=== PATIENT | male | born 1940 | race Caucasian/White ===

== ENCOUNTER → 2017-08-06 08:41 | Outpatient (CLI) | payer MEDICARE, OTHER, SELFPAY ==
[2017-08-06 10:22] LABS: AST(SGOT) 18 U/L (15-37); Alanine Aminotransfer ALT/SGPT 22 U/L (16-61); Albumin, Serum 3.5 g/dL (3.2-5.0); Alkaline Phosphatase 62 U/L (45-117); Bilirubin, Direct 0.12 mg/dL (0.00-0.30); Cholesterol 147 mg/dL (200); Globulin 3.7 g/dL (2.2-4.2); High Density Lipoprotein 45 mg/dL; Protein, Total 7.2 g/dL (6.4-8.2); Triglycerides 83 mg/dL; Very Low Density Lipoprotein 17 mg/dL (5-40)
== END ==
PROVIDERS: Family Provider Family Medicine; PCP Family Medicine; Visit Provider Internal Medicine Cardiovascular Disease
DX: E78.5 Hyperlipidemia, unspecified (principal); Z95.5 Presence of coronary angioplasty implant and graft
CPT/HCPCS: 36415; 80061; 80076

== ENCOUNTER 2019-01-02 11:03 | Inpatient (IN) | payer MEDICARE, OTHER, SELFPAY ==
[2018-07-18 13:30] VITALS: BMI 33.4
[2019-01-02] VITALS (8 sets, daily range): BP systolic 156–179; BP diastolic 75–77; PULSE 51–69; RESP 16–18; TEMP 36.2–36.8; O2SAT 95–98; BMI 31.8; BMI 31.6
--- NOTE | 2019-01-02 11:35 | EKG12_ITS ---
Test Reason : SOB Blood Pressure : / mmHG Vent. Rate : 061 BPM Atrial Rate : 061 BPM P-R Int : 184 ms QRS Dur : 100 ms QT Int : 436 ms P-R-T Axes : -26 -43 -28 degrees QTc Int : 438 ms Normal sinus rhythm Left axis deviation Nonspecific ST abnormality T-wave Abnormality: consider myocardial ischemia: inferior Abnormal ECG Confirmed by WILDER AN, BALDEMAR ([id number]), deputy editor in chief NITO VASQUEZ ([id number]) on 01/04/2019 1:48:19 PM Referred By: Syeda Huggins Confirmed By:BALDEMAR HDZ MD
--- NOTE | 2019-01-02 11:50 | RAD_ITS ---
EXAM DESCRIPTION: PORTABLE AP CHEST CLINICAL HISTORY: 78 years Male, dyspnea COMPARISON: Previous chest obtained on 09/14/2016 FINDINGS: Sternotomy sutures are noted in place. The rest of the thorax is intact.The heart and mediastinum appear to be within normal limits. The lungs appear to be well areated without evidence of pneumonic consolidation or pleural effusion. RAD/Chest PA and Lateral IMPRESSION: No acute pathology Electronically Signed: Roberto Bustamante, at 14:33 EDT Tel , Service support ,
[2019-01-02 11:57] LABS: Absolute Lymphocyte Count 0.93 X10^3/uL (0.83-4.51); Absolute Neutrophil Count 5.4 X10^3/uL (2.0-7.7); Basophil# 0.04 X10^3/uL; Basophil% 0.6 % (0-1); Eosinophil# 0.09 X10^3/uL; Eosinophils% 1.3 % (0-5); Hematocrit 39.8 % (40-54); Hemoglobin 13.1 g/dL (13.0-16.5); Lymphocyte # 0.93 X10^3/ul (4.0); Lymphocyte % 13.1 % (19-41); Mean Corp Hgb Conc 32.9 g/dL (32-36); Mean Corpuscular Hgb 28.8 pg (27.0-32.0); Mean Corpuscular Volume 87.5 fL (80-94); Mean Platelet Vol. 10.5 fl (6.2-12.0); Monocyte# 0.67 X10^3/uL; Monocyte% 9.4 % (0-10); NRBC Flagged by Analyzer 0 % (0-5); Neutrophil # 5.35 X10^3/uL (2.7-7.7); Neutrophil % 75.2 % (47-70); Platelet Count 202 K/mm3 (150-450); RBC Distribution Width CV 12.2 % (11.6-14.6); RBC Distribution Width SD 39.1 fl (35.1-43.9); Red Blood Count 4.55 M/mm3 (4.6-6.2); White Blood Count 7.1 K/mm3 (4.4-11.0)
[2019-01-02 12:11] LABS: Anion Gap 6 (5-15); BUN 14 mg/dL (7-18); BUN/Creat Ratio 14.6 RATIO (10-20); Calcium,Total 9.1 mg/dL (8.5-10.1); Chloride 104 mmol/L (98-107); Creatinine, Serum 0.96 mg/dL (0.70-1.30); EST Glomerular Filtration Rate 81 mL/min (>60); Est Glom Filt Rate - Afr Amer 98 mL/min (>60); Estimated Creatinine Clearance 65.48 ml/min; Glucose 208 mg/dL (74-106); Sodium Level 137 mmol/L (136-145)
--- NOTE | 2019-01-02 13:13 | PCM.HP.STD ---
Problem List (1) Chest pain Status: Acute Qualifiers: Chest pain type: unspecified Qualified Code(s): R07.9 - Chest pain, unspecified (2) Pure hypercholesterolemia Status: Chronic (3) Essential hypertension Status: Chronic (4) S/P CABG x 3 Status: Chronic Comment: CABG X 3 DODSON to LAD, SVG to OM, SVG to RCA 07/21/16 (5) DM (diabetes mellitus), type 2 Status: Chronic Qualifiers: Diabetes mellitus intermediate teacher insulin use: without intermediate teacher use Diabetes mellitus complication status: with other specified complication Qualified Code(s): E11.69 - Type 2 diabetes mellitus with other specified complication (6) Bladder cancer Status: Chronic Qualifiers: Bladder location: unspecified site Qualified Code(s): C67.9 - Malignant neoplasm of bladder, unspecified (7) Hx of heart artery stent Status: Chronic Comment: LHC X 1 stent to LAD ; LHC X 4 stents proximal RCA (8) Peripheral arterial disease Status: Chronic (9) PVD (peripheral vascular disease) Status: Chronic (10) Obesity (BMI 30.0-34.9) Status: Chronic (11) Prostate ca Status: Chronic Comment: had a prostatectomy History of Present Illness Date of Admission: 01/02/19 Chief Complaint: Exertional dyspnea The patient is a 78 y/o M w/ PMHx: CAD s/p CABGx 3, LHC x 1 PCI LAD and LHC x 4 PCI Prox RCA, HTN, HLD, PAD s/p R fem artherectomy/PVD, 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 The ED included T 97.2, heart rate 69, BP 159/77, respiratory rate 17, 95% on room air, CBC with WBC 7.1, hemoglobin 13.1, platelet 202 without market shift, BMP with glucose 208 otherwise unremarkable, troponin less than 0.015, EKG w/ no acute evidence of ischemia, CXR w/ no acute cardia pulmonary findings. In the ED upon evaluation he denies any of these symptoms, but is at rest. Past Medical History Past Medical History (Chronic Problems): Chronic Problems (Last Reviewed 07/18/18 @ 13:32 by Nai Borja) Pure hypercholesterolemia (Chronic) Essential hypertension (Chronic) S/P CABG x 3 (Chronic ~07/21/16) CABG X 3 DODSON to LAD, SVG to OM, SVG to RCA 07/21/16 Atherosclerotic heart disease of [place] coronary artery without angina pectoris (Chronic) Penile ca (Chronic) DM (diabetes mellitus), type 2 (Chronic) Bladder cancer (Chronic) Hx of heart artery stent (Chronic) LHC X 1 stent to LAD ; LHC X 4 stents proximal RCA Murmur, cardiac (Chronic) Peripheral arterial disease (Chronic) PVD (peripheral vascular disease) (Chronic) Obesity (BMI 30.0-34.9) (Chronic) Prostate ca (Chronic) had a prostatectomy Medical History: Medical History (Last Reviewed 07/18/18 @ 13:32 by Nai Borja) Ventricular ectopy (Acute) I49.3 Pure hypercholesterolemia (Chronic) E78.00 Essential hypertension (Chronic) I10 Atherosclerotic heart disease of [place] coronary artery without angina pectoris (Chronic) I25.10 Penile ca (Chronic) DM (diabetes mellitus), type 2 (Chronic) E11.9 Bladder cancer (Chronic) Chest pain (Acute) R07.9 Murmur, cardiac (Chronic) R01.1 Peripheral arterial disease (Chronic) I73.9 Unstable angina (Acute) PVD (peripheral vascular disease) (Chronic) I73.9 Obesity (BMI 30.0-34.9) (Chronic) E66.9 Prostate ca (Chronic) C61 had a prostatectomy Atypical chest pain R07.89 CAD (coronary artery disease) (Inactive) I25.10 HLD (hyperlipidemia) (Inactive) E78.5 HTN (hypertension) (Inactive) I10 Allergies atorvastatin [From Lipitor] Allergy (Verified 01/02/19 11:03) Rash codeine Allergy (Verified 01/02/19 11:03) Rash Home Medications: Ambulatory Orders Medication Instructions Recorded metFORMIN HCl [Glucophage] 1,000 mg PO BIDCM 03/24/14 Aspirin [Aspirin, Baby] 162 mg PO DAILY@0800 10/12/16 metoprolol succinate ER 50 mg 50 mg PO QDAY #90 tab 04/15/17 tablet,extended release 24 hr pravastatin 40 mg tablet 40 mg PO QHS #90 tab 04/15/17 ferrous gluconate 324 mg (37.5 mg 324 mg PO BID tab 07/18/18 iron) tablet losartan 50 mg tablet 50 mg PO DAILY 07/18/18 omeprazole 20 mg capsule,delayed 20 mg PO DAILY 07/18/18 release Surgical History: Surgical History (Last Reviewed 07/18/18 @ 13:32 by Nai Borja) S/P CABG x 3 (Chronic) Onset Date: ~07/21/16 Z95.1 CABG X 3 DODSON to LAD, SVG to OM, SVG to RCA 07/21/16 Hx of heart artery stent (Chronic) Z95.5 LHC X 1 stent to LAD ; LHC X 4 stents proximal RCA Presence of coronary angioplasty implant and graft Z95.5 LHC X 1 stent to LAD ; LHC X 4 stents proximal RCA History of atherectomy Z98.890 December of 2013 R femoral History of prostatectomy Z90.79 LAPORASCOPIC RADICAL PROSTATECTOMY 2006 History of atherectomy (Inactive) Z98.890 December of 2013 R femoral History of three vessel coronary artery bypass (Inactive) Z95.1 S/P PTCA (percutaneous transluminal coronary angioplasty) (Inactive) Z98.61 Surgical History: angioplasty, - - Atherectomy right femoral artery in December 2013. Prostatectomy and resection of a penile cancer and bladder cancer. Coronary stents to the right coronary artery and left anterior descending artery. 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 Tobacco Use: Non-smoker Alcohol: Occasional Drugs: None - *Family History Paternal Family History: Family History (Last Reviewed 07/18/18 @ 13:32 by Nai Borja) Father CAD (coronary artery disease) Brother CAD (coronary artery disease) Mother CAD (coronary artery disease) History Items: Heart Disease, Stroke - His father of a hemorrhagic CVA. Sibling Family History: Family History (Last Reviewed 07/18/18 @ 13:32 by Nai Borja) Father CAD (coronary artery disease) Brother CAD (coronary artery disease) Mother CAD (coronary artery disease) History Items: - - He has 2 brothers who have coronary artery disease. Review of Systems Constitutional: Reports: Malaise, Weakness, Fatigue. Denies: Chills, Fever, Weight Change HEENT: Denies: Head Aches, Sinus Congestion, Sinus Drainage Cardiovascular: Reports: Light Headedness. Denies: Chest Pain, Chest Pressure, Chest Tightness, Orthopnea, Palpitations, Syncope Respiratory: Reports: Shortness of Breath, Shortness of breath upon exertion. Denies: Cough, Shortness of breath at rest, Sputum production, Wheezing Gastrointestinal: Denies: Abdominal Pain, Nausea, Vomiting Genitourinary: Denies: Dysuria Musculoskeletal: Denies: Joint Pain, Joint Tenderness Skin: Denies: Rash, Wounds Neurological: Denies: Numbness, Tingling, Focal weakness Psychiatric: Denies: Anxiety, Depression, Homicidal Ideations, Suicidal Ideations Hematologic/ Lymphatic: Denies: Easy Bruising, Easy Bleeding VTE Information - Inpt Only VTE Present on Admission: No VTE Mechan Device Prophylaxis: SCD's VTE Pharm Prophylaxis ordered?: Yes Patient Problems: Active and Suspected Problems (Last Reviewed 07/18/18 @ 13:32 by Nai Borja) Chest pain (Acute) Subjective: Seated upright in the ED bed, no acute distress, does have hearing deficits, no current dyspnea complaint. Objective: Physical Examination: General: awake, alert, oriented x 3 and cooperative, seated upright in the ED bed in no apparent distress, no chest discomfort or dyspnea at this time. Skin: normal color, turgor, no icterus, cyanosis. HEENT: AT/NC, EOMI, PERRLA, MMM, no carotid bruits or JVD noted. Lungs: CTA bilaterally, moderate effort, mild decrease BL bases, no rales, ronchi or wheezing. Heart: Mildly bradycardic with rhythm; no gallop, rub audible. Abdomen: soft, obese, NTTP, ND, normal BS, no HSM. Extremities: no cyanosis, clubbing, or edema. Neurological: patient awake, alert, oriented x 3; cognitive function intact; pupils equally reactive to light and accomodation; cranial nerves II-XII grossly normal, moving all 4 extremities, no focal deficits, strength moderately global decrease secondary to acute presentation. Psychiatric: affect appears normal, no acute evidence of depressive or anxiety feelings. - Physical Exam Vital Signs Temp Pulse Resp BP Pulse Ox 97.2 F L 51 L 18 159/77 H 95 01/02/19 11:03 01/02/19 12:34 01/02/19 12:34 01/02/19 11:03 01/02/19 12:34 Oxygen Delivery Method Room Air Weight: 222 lb Body Mass Index (BMI) 31.8 Laboratory Tests Past 24 Hrs 01/02/19 01/02/19 11:18 11:18 WBC 7.1 RBC 4.55 L Hgb 13.1 Hct 39.8 L MCV 87.5 MCH 28.8 MCHC 32.9 RDW Std Deviation 39.1 RDW Coeff of Yamil 12.2 Plt Count 202 MPV 10.5 Immature Gran % (Auto) 0.400 Neut % (Auto) 75.2 H Lymph % (Auto) 13.1 L Darke % (Auto) 9.4 Eos % (Auto) 1.3 Baso % (Auto) 0.6 Absolute Neuts (auto) 5.4 Absolute Lymphs (auto) 0.93 Nucleated RBC % 0 Sodium 137 Potassium 4.0 Chloride 104 Carbon Dioxide 27.0 Anion Gap 6 BUN 14 Creatinine 0.96 Estim Creat Clear Calc 65.48 Est GFR (MDRD) Af Amer 98 Est GFR (MDRD) Non-Af 81 BUN/Creatinine Ratio 14.6 Glucose 208 H Calcium 9.1 Troponin I < 0.015 Assessment/Plan All Active Problems (Last Reviewed 07/18/18 @ 13:32 by Nai Borja) Chest pain (Acute) Ventricular ectopy (Acute) Chest pain (Acute) Unstable angina (Acute) The patient is a 78 y/o M w/ PMHx: CAD s/p CABGx 3, LHC x 1 PCI LAD and LHC x 4 PCI Prox RCA, HTN, HLD, PAD s/p R fem artherectomy/PVD, 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 1. Chest Pain: EKG in ED with no acute evidence of ischemia, CXR w/ no acute cardia pulmonary findings, initial trop normal x1. Will admit to telemetry, place on a monitored bed to assure no acute myocardial infarction with serial cardiac enzymes and EKGs. If cardiac enzymes and EKGs remain similar, unremarkable will pursue a.m. cardiac stress testing. ASA, NG. FLP in AM. Mag pending. 2. CAD: Status post CABG x3 and PCI, will remain on aspirin, statin, beta-kyle, ARB therapy. 3. PAD/PVD: Status post right femoral arthrectomy, maintained on aspirin, statin, BP regimen as noted, diabetic therapies noted. Given patient complaints and decreased activity would benefit from reassessment of return to cardiac rehab to assist with his PAD and PVD. 4. Hypertension: Continue home regimen including metoprolol, losartan, PRN hydralazine. 5. Hyperlipidemia: Continue home statin regimen. AM FLP. 6. Diabetes mellitus type II: Hold oral home regimen, hemoglobin A1c pending, nutrition consulted for education and teaching, ADA diet, accu checks w/ ISS. 7. Obesity: Weight loss and lifestyle changes encouraged, nutrition consulted. 8. 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 If cardiac evaluation unremarkable may need to consider PFTs. 9. GERD: We will continue home PPI. 10. DVT prophylaxis: SCDs, Lovenox.
--- NOTE | 2019-01-02 13:21 | ED.VISSUMM ---
- ER Visit Summary Date of Service: 01/02/19 Chief Complaint: Shortness of breath History of Present Illness: The patient is a 78 M who states that for the past 3 to 4 weeks he has had a progressive shortness of breath. States that usually goes away when he rest. Today he went to the hospital to get some blood work by time he got home and walked from the car to the house noted that he was diaphoretic and was very short of breath. Again he rested it and got better. He denies any chest pain with it. He states that he has had some blurred vision in his feeling stuporous at times over the past several weeks as well. Is a history of coronary artery disease having had a CABG in 2017. He follows with Dr. Moncada. His last stress test was in September 2016 and negative. No leg swelling. No fevers or cough. Physical Examination: Afebrile vital signs are stable Gen: Well-nourished well-developed Head: Normocephalic atraumatic Eyes: Perrl EOMI ENT: TMs clear no rhinorrhea moist mucous membranes Neck: Supple no lymphadenopathy no JVD nontender CVS: Regular rate rhythm no murmurs normal S1-S2 Respiratory: No distress clear to auscultation bilaterally chest nontender Abdomen: Soft nontender nondistended normal bowel sounds no masses Back: Nontender Extremity: Nontender no edema Skin: Normal color no rash Neuro: alert orientated ?3 CN II-XII intact normal strength sensation Psych: Normal affect normal mood Test Results: EKG demonstrates a normal sinus rhythm at a rate of 61. He is normal. Chemistry showed a glucose of 208. Troponin is negative. Chest x-ray no acute findings. Emergency Department Course and Treatment: At rest the patient appears asymptomatic. Spoke with his therapeutic activities services worker and with our hospitalist plan is assigned to observation for nuclear stress test and serial cardiac enzymes. Impression: 1. Dyspnea This note was generated with [employer] dictation software. It may contain incorrect words, spelling, and punctuation that were not noted in review of the chart prior to signing ED Disposition - Plan for ED Patient: Referrals: Eliceo Drummond MD [Primary Care Provider] -
--- NOTE | 2019-01-02 14:05 | EKG12_ITS ---
Test Reason : AM EKG Blood Pressure : / mmHG Vent. Rate : 053 BPM Atrial Rate : 053 BPM P-R Int : 190 ms QRS Dur : 100 ms QT Int : 472 ms P-R-T Axes : -35 -33 -32 degrees QTc Int : 442 ms Unusual P axis, possible ectopic atrial bradycardia Left axis deviation T wave abnormality: consider Ischemia Inferior Abnormal ECG Confirmed by WILDER AN, BALDEMAR ([id number]), magazine editor NITO VASQUEZ ([id number]) on 01/04/2019 2:33:10 PM Referred By: Syeda Huggins Confirmed By:BALDEMAR HDZ MD
[2019-01-02 14:29] LABS: Magnesium 1.7 mg/dL (1.6-2.6)
[2019-01-02] MEDS: 0.9% Normal Saline 1,000 ML 100 ML IV (14:52)
[2019-01-02 16:45] LABS: Bedside Glucose 95 mg/dL (70-110)
--- NOTE | 2019-01-02 17:57 | PCM.CONS.C ---
Problem List (1) Dyspnea Status: Acute (2) CAD in [place] artery Status: Chronic (3) S/P CABG x 3 Status: Chronic Comment: CABG X 3 DODSON to LAD, SVG to OM, SVG to RCA 07/21/16 (4) Hx of heart artery stent Status: Chronic Comment: LHC X 1 stent to LAD ; LHC X 4 stents proximal RCA (5) Pure hypercholesterolemia Status: Chronic (6) Essential hypertension Status: Chronic (7) DM (diabetes mellitus), type 2 Status: Chronic Qualifiers: Diabetes mellitus skilled nursing insulin use: without manager terminal use Diabetes mellitus complication status: with other specified complication Qualified Code(s): E11.69 - Type 2 diabetes mellitus with other specified complication (8) PVD (peripheral vascular disease) Status: Chronic Reason for Consult Date of Consultation: 01/02/19 History of Present Illness: The patient is a 78 year [id number] white male who presents for concerns of feeling sluggish and dyspnea on exertion. He states for the last 3 weeks he has been more, as he puts it, sluggish and feeling more short of breath with exertional activity. He notes this sensation of dyspnea occurs when he is walking across the parking lot to go into a building. Today he reportedly became somewhat more diaphoretic. He denied ongoing chest discomfort at rest or with his exertion. He states at rest he breathes comfortably. He has had no orthopnea or PND or peripheral pitting edema. There has been no loss of consciousness. He states his feelings are somewhat similar to what he had before his CABG. Based upon his concerns he presented to the hospital for further evaluation. His initial troponin I level was negative. His ECG demonstrated sinus rhythm with T wave changes with consideration to myocardial ischemia in the inferior distribution. He was placed in the PCU for further evaluation and care. He notes at rest he feels comfortable at this time. His only other concern is that he has had intermittent blurry vision. He states he is aware that he has macular issues, has had cataract surgery, and recently had new prescription lenses, however he still states intermittently he has blurriness of vision. [] Past Medical History Allergies/Adverse Reactions: Allergies atorvastatin [From Lipitor] Allergy (Verified 01/02/19 11:03) Rash codeine Allergy (Verified 01/02/19 11:03) Rash Home Medications: Ambulatory Orders Medication Instructions Recorded metFORMIN HCl [Glucophage] 1,000 mg PO BIDCM 03/24/14 Aspirin [Aspirin, Baby] 162 mg PO DAILY@0800 10/12/16 metoprolol succinate ER 50 mg 50 mg PO QDAY #90 tab 04/15/17 tablet,extended release 24 hr pravastatin 40 mg tablet 40 mg PO QHS #90 tab 04/15/17 ferrous gluconate 324 mg (37.5 mg 324 mg PO BID tab 07/18/18 iron) tablet losartan 50 mg tablet 50 mg PO DAILY 07/18/18 omeprazole 20 mg capsule,delayed 20 mg PO DAILY 07/18/18 release Past Medical History (Chronic Problems): Chronic Problems (Last Reviewed 07/18/18 @ 13:32 by Nai Borja) CAD in [place] artery (Chronic) Pure hypercholesterolemia (Chronic) Essential hypertension (Chronic) S/P CABG x 3 (Chronic ~07/21/16) CABG X 3 DODSON to LAD, SVG to OM, SVG to RCA 07/21/16 Atherosclerotic heart disease of [place] coronary artery without angina pectoris (Chronic) Penile ca (Chronic) DM (diabetes mellitus), type 2 (Chronic) Bladder cancer (Chronic) Hx of heart artery stent (Chronic) LHC X 1 stent to LAD ; LHC X 4 stents proximal RCA Murmur, cardiac (Chronic) Peripheral arterial disease (Chronic) PVD (peripheral vascular disease) (Chronic) Obesity (BMI 30.0-34.9) (Chronic) Prostate ca (Chronic) had a prostatectomy Surgical History: angioplasty, - - Atherectomy right femoral artery in December 2013. Prostatectomy and resection of a penile cancer and bladder cancer. Coronary stents to the right coronary artery and left anterior descending artery. Psychiatric History: No pertinent psych hx - *Family History Paternal Family History: Family History (Last Reviewed 07/18/18 @ 13:32 by Nai Borja) Father CAD (coronary artery disease) Brother CAD (coronary artery disease) Mother CAD (coronary artery disease) History Items: Heart Disease, Stroke - His father of a hemorrhagic CVA. Sibling Family History: Family History (Last Reviewed 07/18/18 @ 13:32 by Nai Borja) Father CAD (coronary artery disease) Brother CAD (coronary artery disease) Mother CAD (coronary artery disease) History Items: - - He has 2 brothers who have coronary artery disease. Lives: Spouse/ Significant Other Smoking Status: Former smoker Tobacco Use: Non-smoker, Cigarettes Alcohol: Occasional Drugs: None Review of Systems - Review of Systems General: Reports: - - Sluggish. Denies: Fever, Fatigue, Night Sweats HEENT: Reports: Blurred Vision Cardiovascular: Reports: Chest Discomfort, Shortness of Breath, Shortness of Breath with Exertion. Denies: Orthopnea, PND, Peripheral Edema, Palpitations, Lightheadedness, Dizziness, Near Syncope, Syncope Respiratory: Reports: Shortness of Breath. Denies: Cough, Sputum Production, Hemoptysis Gastrointestinal: Denies: Hematemesis, Hematochezia, Melena Genitourinary: Denies: Dysuria, Hematuria Skin: Denies: Rash Subjectve: This is a 78-year-old white male who appears to be resting comfortably at the moment in no acute distress. Objective: Vital Signs Temp Pulse Resp BP Pulse Ox 98.1 F 58 L 16 179/75 H 97 01/02/19 14:18 01/02/19 15:29 01/02/19 14:18 01/02/19 14:18 01/02/19 14:40 Oxygen Delivery Method Room Air Weight: 220 lb 7.396 oz Body Mass Index (BMI) 31.6 General: Awake, Alert, Oriented x 3, Cooperative, No Acute Distress HEENT: Atraumatic, Normocephalic, PERRL, EOMI, Sclera Non Icteric Oral: Moist Mucosa Neck: Supple, Good ROM, No JVD Lungs: Clear to auscultation Cardiovascular: Regular Rhythm, Normal S1, Normal S2 Abdomen: Bowel Sounds Present, Soft, Non Tender Extremities: No edema Psych/Mental Status: Appropriate 01/02/19 11:18: WBC 7.1, RBC 4.55 L, Hgb 13.1, Hct 39.8 L, MCV 87.5, MCH 28.8, MCHC 32.9, Plt Count 202, MPV 10.5, Immature Gran % (Auto) 0.400, Neut % (Auto) 75.2 H, Lymph % (Auto) 13.1 L, [place] % (Auto) 9.4, Eos % (Auto) 1.3, Baso % (Auto) 0.6, Absolute Neuts (auto) 5.4, Nucleated RBC % 0 01/02/19 11:18: Sodium 137, Potassium 4.0, Chloride 104, Carbon Dioxide 27.0, Anion Gap 6, BUN 14, Creatinine 0.96, Est GFR (MDRD) Af Amer 98, Est GFR (MDRD) Non-Af 81, BUN/Creatinine Ratio 14.6, Glucose 208 H, Calcium 9.1, Troponin I < 0.015 01/02/19 11:18: Magnesium 1.7 01/02/19 15:25: Troponin I < 0.015 Rhythm: Sinus rhythm EKG: Sinus rhythm; T wave abnormality; consider myocardial ischemia: Inferior ECHO: 07-21-16: [facility] Indication: CABG Conclusion: Left ventricular function normal Right ventricle dilated/function normal Trace TR PFO positive Stress Test: Stress Test Report: Date: 10/13/2016 Procedure: Exercise tolerance test/imaging study Indications: Chest pain; CAD; CABG Consent: Per the patient Procedure: The patient exercised on a Jason protocol for 7 minutes completing stage II and 1 minute of stage III achieving a peak heart rate of 101 bpm (70% predicted maximal heart rate) with a peak blood pressure 160/89 mmHg and a peak MET capacity of approximately 8 MET's. The baseline ECG demonstrated sinus bradycardia. The peak exercise ECG demonstrated no obvious ECG changes. There is an occasional PVC during exercise. The functional capacity was considered average. There was no report of chest discomfort during exercise or recovery. The examination was discontinued secondary to dyspnea Impression: 1. Technically inadequate (percent predicted maximal heart rate less than 85%) exercise tolerance test 2. Peak exercise ECG with no obvious ECG changes at the heart rate achieved 3. Occasional PVC during exercise 4. Pharmacologic (regadenoson) valuation pending The patient underwent pharmacologic (regadenoson) valuation with a peak heart rate of 61 bpm (56% predicted maximal heart rate) with a peak blood pressure 150/74 mmHg. The baseline ECG demonstrated normal sinus rhythm. The peak pharmacologic ECG demonstrated no obvious ECG changes. There was an occasional PVC during recovery. There was no report of chest discomfort during pharmacologic infusion or recovery. The examination was discontinued secondary to completion of protocol. Impression: 1. Pharmacologic (regadenoson) relation 2. Peak pharmacologic ECG with no obvious ECG changes 3. Occasional PVC during recovery 4. Nuclear images pending Myocardial perfusion imaging study: Technique: The patient was injected with 14.7 mCi of technetium 99m Cardiolite and subsequently rest SPECT Cardiolite nuclear imaging was obtained in the horizontal long, vertical long, and short axis views. The patient underwent exercise on a Jason protocol for 7 minutes completing stage II and 1 minute of stage III achieving a peak heart rate of 101 bpm (70% predicted maximal heart rate) with a peak blood pressure of 160/89 mmHg and a peak MET capacity of approximately 8 MET's. The patient then underwent pharmacologic (regadenoson) evaluation with a peak heart rate of 61 bpm (56% predicted maximal heart rate) with a peak blood pressure 150/74 mmHg. patient was then injected with 44.9 mCi of [facility] [employer] 99m Cardiolite and subsequently stress SPECT Cardiolite nuclear imaging was obtained in the horizontal long, vertical long, and short axis views. A gated Cardiolite study at peak stress was obtained. Interpretation: Rest and stress SPECT Cardiolite nuclear imaging, status post realignment, normalization, and attenuation correction demonstrates the appearance of extracardiac/hepatic and gastrointestinal tracer uptake. Otherwise there appears to be relative uniform tracer uptake. There is end systolic thickening and brightening. The gated Cardiolite study demonstrates myocardial thickening and inward wall motion. The reported LVEF is 63%. Impression: 1. Rest and stress SPECT Cardiolite nuclear imaging demonstrates relative uniform tracer uptake and myocardial perfusion appearing within normal limits per 2. The gated Cardiolite study reports an LVEF of 63%. Cardiac Cath: Cardiac catheterization: 07-17-16 DOMINANCE: Right Dominant LEFT HEART ASSESSMENT Left Ventricular Ejection Fraction: by LV Gram 6O % Normal Left Ventricular systolic function Elevated Left Ventricular End Diastolic Pressure LVEDP: 21 mmHg LEFT MAIN: Distal: 50% % Stenosis [id number] ARTERY: OSTIAL LAD: Previously placed. stent has an instent 95 % restenosis PROX LAD: Previously placed stent has an instent 95 % restenosis MID LAD: Eccentric: 25 % Stenosis DISTAL LAD: Eccentric: 25 % Stenosis DIAGONAL 1: Ostial - 95 % Stenosis [id number]: PROX CIRC: Eccentric: 50 % Stenosis OM 1: Ostial - 75 % Stenosis RIGHT CORONARY ARTERY: PROX RCA: Previously placed stent has an instant Distal: 50 % restenosis, S/P stent: 75 % Stenosis MID RCA: Eccentric: 25 % St?nosis DISTAL RCA: Eccentric: 25 % Stenosis VALVE FINDINGS: Normal Aortic Valve function Moderate - severe mitral annular calcification AORTIC ROOT: Angiographically normal CAB07-21-16: [facility] DODSON to the LAD, SVG to the OM, and SVG to the posterior lateral branch of the RCA Holter monitor: 10-14-16 Sinus rhythm; rare PACs; rare PVCs CXR: Preliminary review: Post open heart surgery findings; no acute cardia pulmonary disease process Assessment/Plan 1. Dyspnea The patient presents with concerns of dyspnea. The etiology is unclear whether this is cardiovascular versus noncardiovascular related. The patient is being monitored. His laboratory studies and ECG are being followed. At the moment he is tentatively scheduled for an exercise tolerance test/imaging study to evaluate for any obvious evidence of ongoing myocardial ischemia. Depending upon his study results he may or may not need repeat evaluation in the cardiac catheterization laboratory. 2. CAD status post PCI-remote status post CABG-remote The patient has undergone previous diagnosis of CAD and revascularization therapy in the past. He has been on medical management. His most recent studies available for review are as noted above. At the present time he will continue to be monitored. He will continue his noninvasive evaluation. Depending upon his findings he may need invasive evaluation. 3. Hyperlipidemia The patient will continue medical management. 4. Hypertension The patient will continue medical therapy and follow-up. 5. Diabetes mellitus The patient will continue under the care of internal medicine. 6. Peripheral artery disease As noted with the patient's previous cardiovascular consultation in 2017 the patient did report that he underwent some form of peripheral vascular intervention to his lower extremity peripheral vasculature, however, he was unclear as of the details. Comment: The patient's case has been discussed and reviewed with the patient and previously with the [facility] emergency department physician. This note was generated using a voice recognition system and there may be incorrect words, spelling or punctuation that were not noted when reviewing the office note prior to saving.
[2019-01-02] MEDS: Ferrous Gluconate 324 MG Tablet PO (18:02)
[2019-01-02] MEDS: Pravastatin 40 MG Tablet PO (22:02)
[2019-01-02 22:45] LABS: Bedside Glucose 151 mg/dL (70-110)
[2019-01-03] VITALS (21 sets, daily range): BP systolic 139–207; BP diastolic 67–104; PULSE 52–78; RESP 14–18; TEMP 36.3–36.8; O2SAT 93–98
[2019-01-03] MEDS: 0.9% Normal Saline 1,000 ML 100 ML IV (00:04)
[2019-01-03 05:51] LABS: Absolute Lymphocyte Count 1.62 X10^3/uL (0.83-4.51); Absolute Neutrophil Count 4.9 X10^3/uL (2.0-7.7); Basophil# 0.04 X10^3/uL; Basophil% 0.5 % (0-1); Eosinophil# 0.15 X10^3/uL; Hematocrit 37.5 % (40-54); Hemoglobin 12.3 g/dL (13.0-16.5); Lymphocyte # 1.62 X10^3/ul (4.0); Lymphocyte % 21.8 % (19-41); Mean Corp Hgb Conc 32.8 g/dL (32-36); Mean Corpuscular Hgb 28.5 pg (27.0-32.0); Mean Corpuscular Volume 86.8 fL (80-94); Mean Platelet Vol. 10.1 fl (6.2-12.0); Monocyte# 0.75 X10^3/uL; Monocyte% 10.1 % (0-10); NRBC Flagged by Analyzer 0 % (0-5); Neutrophil # 4.86 X10^3/uL (2.7-7.7); Neutrophil % 65.5 % (47-70); Platelet Count 179 K/mm3 (150-450); RBC Distribution Width SD 38.5 fl (35.1-43.9); Red Blood Count 4.32 M/mm3 (4.6-6.2); White Blood Count 7.4 K/mm3 (4.4-11.0)
--- NOTE | 2019-01-03 05:55 | EKG12_ITS ---
Test Reason : CP ADMISSION Blood Pressure : / mmHG Vent. Rate : 055 BPM Atrial Rate : 055 BPM P-R Int : 186 ms QRS Dur : 104 ms QT Int : 464 ms P-R-T Axes : -28 -29 -34 degrees QTc Int : 443 ms Sinus bradycardia leftward [place] T wave abnormality: consider myocardial ischemia; inferior Confirmed by WILDER AN, BALDEMAR ([id number]), legal editor NITO VASQUEZ [id number]) on 01/04/2019 2:36:38 PM Referred By: Syeda Huggins Confirmed By:BALDEMAR HDZ MD
[2019-01-03 06:13] LABS: Anion Gap 7 (5-15); BUN 13 mg/dL (7-18); BUN/Creat Ratio 16.1 RATIO (10-20); Calcium,Total 8.5 mg/dL (8.5-10.1); Chloride 106 mmol/L (98-107); Cholesterol 144 mg/dL (200); Creatinine, Serum 0.81 mg/dL (0.70-1.30); EST Glomerular Filtration Rate 98 mL/min (>60); Est Glom Filt Rate - Afr Amer 119 mL/min (>60); Estimated Creatinine Clearance 77.61 ml/min; Glucose 153 mg/dL (74-106); High Density Lipoprotein 37 mg/dL; Sodium Level 141 mmol/L (136-145); Triglycerides 104 mg/dL; Very Low Density Lipoprotein 21 mg/dL (5-40)
[2019-01-03] MEDS: Losartan Potassium 50 MG Tablet PO (06:28)
[2019-01-03] MEDS: Aspirin 81 MG TAB.CHEW 162 MG PO (06:28)
[2019-01-03 07:16] LABS: Bedside Glucose 142 mg/dL (70-110)
--- NOTE | 2019-01-03 10:56 | STRESSREP ---
Stress Test Report Date: 01-03-19 Procedure: Pharmacologic stress nuclear imaging study Indications: This of breath/dyspnea; CAD; PCI; CABG Consent: Per the patient Procedure: The patient underwent pharmacologic (Regadenoson) evaluation with a peak heart rate of 81 beats per minute (57 %predicted maximal heart rate) and a peak blood pressure of 142/70 mmHg. The baseline ECG demonstrated sinus bradycardia; nonspecific T wave abnormality. The peak pharmacologic ECG demonstrated no obvious ECG changes, however, during recovery there was notation of the appearance of somewhat more prominent ST segment depression (horizontal) in leads II, III, and aVF. There were no cardiac dysrhythmias pretest, during pharmacologic infusion, or recovery. There was no complaint of chest discomfort during pharmacologic infusion or recovery. The examination was discontinued secondary to completion of protocol. Impression: 1. Pharmacologic (Regadenoson) evaluation 2. Peak pharmacologic ECG with no obvious ECG changes, however, during recovery was notation of the appearance of somewhat more prominent ST segment depression (horizontal) in leads II, III, and aVF. 3. There were no cardiac dysrhythmias pretest, during pharmacologic infusion, or recovery. 4. Nuclear images pending Myocardial perfusion imaging study: Technique: The patient was injected with 15.0 millicuries of technetium 99m Cardiolite and subsequently rest SPECT Cardiolite nuclear imaging was obtained in the horizontal long, vertical long, and short axis views. The patient underwent pharmacologic (Regadenoson) evaluation with a peak heart rate of 81 beats per minute (57 % percent predicted maximal heart rate) and a peak blood pressure of 142/70 mmHg. The patient was injected with 44.0 millicuries of technetium 99m Cardiolite and subsequently stress SPECT Cardiolite nuclear imaging was obtained in the horizontal long, vertical long, and short axis views. A gated Cardiolite study at peak stress was obtained. Interpretation: Rest and stress SPECT Cardiolite nuclear imaging status post realignment, normalization, and attenuation correction demonstrate relative uniform tracer uptake and myocardial perfusion appearing within normal limits. There is end systolic thickening and brightening. The gated Cardiolite study demonstrates myocardial thickening and inward wall motion. The reported LVEF is 71 %. Impression: 1. Rest and stress SPECT Cardiolite nuclear imaging demonstrate relative uniform tracer uptake and myocardial perfusion appearing within normal limits. 2. The gated Cardiolite study reports an LVEF of 71 %. This note was generated with Dragon dictation software. It may contain incorrect words, spelling, and punctuation that were not noted in checking the note before signing.
--- NOTE | 2019-01-03 11:41 | PN.CARD_ITS ---
Subjectve: The patient is awake and alert. He states he is doing well at rest. He is only been up and back to the restroom. He has had no significant ambulation during his hospital stay thus far. Objective: Vital Signs Temp Pulse Resp BP Pulse Ox 97.4 F L 61 18 159/72 H 97 01/03/19 10:09 01/03/19 10:09 01/03/19 10:09 01/03/19 10:09 01/03/19 10:09 Oxygen Delivery Method Room Air Weight: 220 lb 7.396 oz Body Mass Index (BMI) 31.6 Intake and Output for Last 24 Hours 01/01/19 01/02/19 01/03/19 23:59 23:59 23:59 Intake Total 360 / 360 1663.33 / 1663.33 Balance 360 / 360 1663.33 / 1663.33 General: Awake, Alert, Oriented x 3, Cooperative, No Acute Distress HEENT: Atraumatic, Normocephalic, PERRL, EOMI, Sclera Non Icteric Oral: Moist Mucosa Neck: Supple, Good ROM, No JVD Lungs: Clear to auscultation Cardiovascular: Regular Rhythm, Normal S1, Normal S2 Abdomen: Bowel Sounds Present, Soft, Non Tender Extremities: No edema Neurological: No Focal Motor or Sensory Deficit Psych/Mental Status: Appropriate 01/02/19 11:18: WBC 7.1, RBC 4.55 L, Hgb 13.1, Hct 39.8 L, MCV 87.5, MCH 28.8, MCHC 32.9, Plt Count 202, MPV 10.5, Immature Gran % (Auto) 0.400, Neut % (Auto) 75.2 H, Lymph % (Auto) 13.1 L, [place] % (Auto) 9.4, Eos % (Auto) 1.3, Baso % (Auto) 0.6, Absolute Neuts (auto) 5.4, Nucleated RBC % 0 01/02/19 11:18: Sodium 137, Potassium 4.0, Chloride 104, Carbon Dioxide 27.0, Anion Gap 6, BUN 14, Creatinine 0.96, Est GFR (MDRD) Af Amer 98, Est GFR (MDRD) Non-Af 81, BUN/Creatinine Ratio 14.6, Glucose 208 H, Calcium 9.1, Troponin I < 0.015 01/02/19 11:18: Magnesium 1.7 01/02/19 15:25: Troponin I < 0.015 01/02/19 17:40: Troponin I < 0.015 01/03/19 05:41: WBC 7.4, RBC 4.32 L, Hgb 12.3 L, Hct 37.5 L, MCV 86.8, MCH 28.5, MCHC 32.8, Plt Count 179, MPV 10.1, Immature Gran % (Auto) 0.100, Neut % (Auto) 65.5, Lymph % (Auto) 21.8, [place] % (Auto) 10.1 H, Eos % (Auto) 2.0, Baso % (Auto) 0.5, Absolute Neuts (auto) 4.9, Nucleated RBC % 0 01/03/19 05:41: Sodium 141, Potassium 4.0, Chloride 106, Carbon Dioxide 28.0, Anion Gap 7, BUN 13, Creatinine 0.81, Est GFR (MDRD) Af Amer 119, Est GFR (MDRD) Non-Af 98, BUN/Creatinine Ratio 16.1, Glucose 153 H, Calcium 8.5, Triglycerides 104, Cholesterol 144, LDL Cholesterol 86, VLDL Cholesterol 21, HDL Cholesterol 37 L Rhythm: Sinus rhythm/sinus bradycardia EKG: Sinus rhythm; T wave abnormality: Consider myocardial EMEA: Inferior Stress Test: Stress Test Report Date: 01-03-19 Procedure: Pharmacologic stress nuclear imaging study Indications: This of breath/dyspnea; CAD; PCI; CABG Consent: Per the patient Procedure: The patient underwent pharmacologic (Regadenoson) evaluation with a peak heart rate of 81 beats per minute (57 %predicted maximal heart rate) and a peak blood pressure of 142/70 mmHg. The baseline ECG demonstrated sinus bradycardia; nonspecific T wave abnormality. The peak pharmacologic ECG demonstrated no obvious ECG changes, however, during recovery there was notation of the appearance of somewhat more prominent ST segment depression (horizontal) in leads II, III, and aVF. There were no cardiac dysrhythmias pretest, during pharmacologic infusion, or recovery. There was no complaint of chest discomfort during pharmacologic infusion or recovery. The examination was discontinued secondary to completion of protocol. Impression: 1. Pharmacologic (Regadenoson) evaluation 2. Peak pharmacologic ECG with no obvious ECG changes, however, during recovery was notation of the appearance of somewhat more prominent ST segment depression (horizontal) in leads II, III, and aVF. 3. There were no cardiac dysrhythmias pretest, during pharmacologic infusion, or recovery. 4. Nuclear images pending Myocardial perfusion imaging study: Technique: The patient was injected with 15.0 millicuries of technetium 99m Cardiolite and subsequently rest SPECT Cardiolite nuclear imaging was obtained in the horizontal long, vertical long, and short axis views. The patient underwent pharmacologic (Regadenoson) evaluation with a peak heart rate of 81 beats per minute (57 % percent predicted maximal heart rate) and a peak blood pressure of 142/70 mmHg. The patient was injected with 44.0 millicuries of technetium 99m Cardiolite and subsequently stress SPECT Cardiolite nuclear imaging was obtained in the horizontal long, vertical long, and short axis views. A gated Cardiolite study at peak stress was obtained. Interpretation: Rest and stress SPECT Cardiolite nuclear imaging status post realignment, normalization, and attenuation correction demonstrate relative uniform tracer uptake and myocardial perfusion appearing within normal limits. There is end systolic thickening and brightening. The gated Cardiolite study demonstrates myocardial thickening and inward wall motion. The reported LVEF is 71 %. Impression: 1. Rest and stress SPECT Cardiolite nuclear imaging demonstrate relative uniform tracer uptake and myocardial perfusion appearing within normal limits. 2. The gated Cardiolite study reports an LVEF of 71 %. Medical Necessity - Tobacco Use Smoking Status: Former smoker Tobacco Use: Non-smoker, Cigarettes Assessment/Plan 1. Dyspnea The patient presents with concerns of dyspnea. The etiology is unclear whether this is cardiovascular versus noncardiovascular related. The patient is being monitored. His troponin I levels are negative. His ECG is demonstrated no acute ECG changes. His exercise tolerance test/imaging study (pharmacologic stress nuclear study) is as noted above. There appears to be a mismatch between concerns of elective cardiographic changes in recovery and his myocardial perfusion study. At the present time his case was reviewed. It was thought based upon his symptoms, which he states are similar to what he had before his CABG, and the mismatch between his ECG portion of his pharmacologic stress nuclear imaging study and his myocardial perfusion portion that he be considered for reevaluation in the cardiac catheterization laboratory to reassess his [place] vessels and his graft vessels. The procedure and risks were discussed with him. He was agreeable to this approach. 2. CAD status post PCI-remote status post CABG-remote The patient has undergone previous diagnosis of CAD and revascularization therapy in the past. He has been on medical management. We will continue evaluation care as noted above. 3. Hyperlipidemia The patient will continue medical management. 4. Hypertension The patient will continue medical therapy and follow-up. 5. Diabetes mellitus The patient will continue under the care of internal medicine. 6. Peripheral artery disease As noted with the patient's previous cardiovascular consultation in 2017 the patient did report that he underwent some form of peripheral vascular intervention to his lower extremity peripheral vasculature, however, he was unclear as of the details. States he has required no further invasive evaluation or care of his peripheral vasculature. Comment: The patient's case has been discussed and reviewed with the patient and his spouse. This note was generated using a voice recognition system and there may be incorrect words, spelling or punctuation that were not noted when reviewing the office note prior to saving.
[2019-01-03 11:50] LABS: Bedside Glucose 191 mg/dL (70-110)
[2019-01-03] MEDS: TICAGRELOR 90 MG TABLET 180 MG PO (11:56)
[2019-01-03] MEDS: Metoprolol(XL)Succ 50 MG Tablet PO (11:57)
--- NOTE | 2019-01-03 13:05 | PCM.PROGNOTE ---
<Zac Matute - Last Filed: 01/03/19 13:09> Patient Problems: Active and Suspected Problems (Last Reviewed 07/18/18 @ 13:32 by Nai Borja) Chest pain (Acute) Dyspnea (Acute) Subjective: Pt resting comfortably in bed post stres test. Tolerated chemical stress test with mild transient burning sensation and headache. No CP, no SOB during. No SOB at rest. Progressively more SOB with light activity. If he is walking, by the time he is done walking he is very SOB and there is pursed lip breathing. He denies PND and orthopnea. No associated dizziness/LH, chest pain, tightness, heaviness, pressure, diaphoresis, or nausea. Stress was abnormal. This is similar to how he felt when he was hospitalized with cardiac issues the last time. His states that his symptoms are much worse than the patient says they are, and he states this is not true. - Physical Exam General: Alert, Oriented x3, Cooperative HEENT: Atraumatic, PERRLA, EOMI, Normocephalic Neck: Supple, No JVD, Negative Carotid Bruits Lungs: Clear to auscultation, Normal air movement Cardiovascular: Regular rate, No murmurs Abdomen: Bowel Sounds Present, Soft, Non Tender Extremities: No edema, Capillary Refill Less than 3 Seconds Skin: No rashes, No breakdown Musculoskeletal: No Tenderness to Palpation of Joints or Extremities Neurological: Cranial nerves II-XII grossly intact Psych/Mental Status: Normal Affect, Appropriate, Alert and oriented to time, place, person, mood and affect Vital Signs Temp Pulse Resp BP Pulse Ox 97.4 F L 62 18 150/74 H 96 01/03/19 11:53 01/03/19 11:57 01/03/19 11:53 01/03/19 11:57 01/03/19 11:53 Oxygen Delivery Method Room Air Weight: 220 lb 7.396 oz Body Mass Index (BMI) 31.6 Intake and Output for Last 24 Hours 01/01/19 01/02/19 01/03/19 23:59 23:59 23:59 Intake Total 360 / 360 1741.66 / 1741.66 Balance 360 / 360 1741.66 / 1741.66 Laboratory Tests Past 24 Hrs 01/02/19 01/02/19 01/02/19 11:18 15:25 17:40 WBC RBC Hgb Hct MCV MCH MCHC RDW Std Deviation RDW Coeff of Yamil Plt Count MPV Immature Gran % (Auto) Neut % (Auto) Lymph % (Auto) [place] % (Auto) Eos % (Auto) Baso % (Auto) Absolute Neuts (auto) Absolute Lymphs (auto) Nucleated RBC % Sodium Potassium Chloride Carbon Dioxide Anion Gap BUN Creatinine Estim Creat Clear Calc Est GFR (MDRD) Af Amer Est GFR (MDRD) Non-Af BUN/Creatinine Ratio Glucose Calcium Magnesium 1.7 Troponin I < 0.015 < 0.015 Triglycerides Cholesterol LDL Cholesterol VLDL Cholesterol HDL Cholesterol 01/03/19 01/03/19 05:41 05:41 WBC 7.4 RBC 4.32 L Hgb 12.3 L Hct 37.5 L MCV 86.8 MCH 28.5 MCHC 32.8 RDW Std Deviation 38.5 RDW Coeff of Yamil 12.0 Plt Count 179 MPV 10.1 Immature Gran % (Auto) 0.100 Neut % (Auto) 65.5 Lymph % (Auto) 21.8 [place] % (Auto) 10.1 H Eos % (Auto) 2.0 Baso % (Auto) 0.5 Absolute Neuts (auto) 4.9 Absolute Lymphs (auto) 1.62 Nucleated RBC % 0 Sodium 141 Potassium 4.0 Chloride 106 Carbon Dioxide 28.0 Anion Gap 7 BUN 13 Creatinine 0.81 Estim Creat Clear Calc 77.61 Est GFR (MDRD) Af Amer 119 Est GFR (MDRD) Non-Af 98 BUN/Creatinine Ratio 16.1 Glucose 153 H Calcium 8.5 Magnesium Troponin I Triglycerides 104 Cholesterol 144 LDL Cholesterol 86 VLDL Cholesterol 21 HDL Cholesterol 37 L POC Glucose 01/03/19 01/03/19 01/02/19 11:36 06:30 22:01 POC Glucose 191 H 142 H 151 H 01/02/19 16:40 POC Glucose 95 Medical Necessity - Tobacco Use Smoking Status: Former smoker Tobacco Use: Non-smoker, Cigarettes Assessment/Plan All Active Problems (Last Reviewed 07/18/18 @ 13:32 by Nai Borja) Chest pain (Acute) Dyspnea (Acute) Ventricular ectopy (Acute) Chest pain (Acute) Unstable angina (Acute) 1. Dyspnea with exertion, angina equivalent - hx CAD with prior CABGx3 - abnormal stress test. Heart cath per Dr. Moodispaw. On asa/arb/beta kyle/statin. Trop negx3 neg EKG. 2. DMt2 with obesity - check a1c. dietary eval. SSI. metformin held. 3. Former smoker - quit completely when he retired 15 years ago. 4. Hx prostate/ penile / bladder cancer in remission 5. HTN, HLD - pravastatin, losartan, toprol, BP somewhat elevated. 6. Iron def anemia - mild, on po iron. DVT ppx: lovenox DC Planning: pending heart cath This patient was seen by Zac Matute PA-C under the supervision of Dr. Morales <Dipika Morales - Last Filed: 01/03/19 13:35> - Physical Exam Vital Signs Temp Pulse Resp BP Pulse Ox 97.4 F L 62 18 150/74 H 96 01/03/19 11:53 01/03/19 11:57 01/03/19 11:53 01/03/19 11:57 01/03/19 11:53 Oxygen Delivery Method Room Air Weight: 220 lb 7.396 oz Body Mass Index (BMI) 31.6 Intake and Output for Last 24 Hours 01/01/19 01/02/19 01/03/19 23:59 23:59 23:59 Intake Total 360 / 360 1741.66 / 1741.66 Balance 360 / 360 1741.66 / 1741.66 Laboratory Tests Past 24 Hrs 01/02/19 01/02/19 01/02/19 11:18 15:25 17:40 WBC RBC Hgb Hct MCV MCH MCHC RDW Std Deviation RDW Coeff of Yamil Plt Count MPV Immature Gran % (Auto) Neut % (Auto) Lymph % (Auto) [place] % (Auto) Eos % (Auto) Baso % (Auto) Absolute Neuts (auto) Absolute Lymphs (auto) Nucleated RBC % Sodium Potassium Chloride Carbon Dioxide Anion Gap BUN Creatinine Estim Creat Clear Calc Est GFR (MDRD) Af Amer Est GFR (MDRD) Non-Af BUN/Creatinine Ratio Glucose Calcium Magnesium 1.7 Troponin I < 0.015 < 0.015 Triglycerides Cholesterol LDL Cholesterol VLDL Cholesterol HDL Cholesterol 01/03/19 01/03/19 05:41 05:41 WBC 7.4 RBC 4.32 L Hgb 12.3 L Hct 37.5 L MCV 86.8 MCH 28.5 MCHC 32.8 RDW Std Deviation 38.5 RDW Coeff of Yamil 12.0 Plt Count 179 MPV 10.1 Immature Gran % (Auto) 0.100 Neut % (Auto) 65.5 Lymph % (Auto) 21.8 [place] % (Auto) 10.1 H Eos % (Auto) 2.0 Baso % (Auto) 0.5 Absolute Neuts (auto) 4.9 Absolute Lymphs (auto) 1.62 Nucleated RBC % 0 Sodium 141 Potassium 4.0 Chloride 106 Carbon Dioxide 28.0 Anion Gap 7 BUN 13 Creatinine 0.81 Estim Creat Clear Calc 77.61 Est GFR (MDRD) Af Amer 119 Est GFR (MDRD) Non-Af 98 BUN/Creatinine Ratio 16.1 Glucose 153 H Calcium 8.5 Magnesium Troponin I Triglycerides 104 Cholesterol 144 LDL Cholesterol 86 VLDL Cholesterol 21 HDL Cholesterol 37 L POC Glucose 01/03/19 01/03/19 01/02/19 11:36 06:30 22:01 POC Glucose 191 H 142 H 151 H 01/02/19 16:40 POC Glucose 95 Assessment/Plan Patient seen by Zac Matute PA-C under my supervision Patient was admitted with a complaint of exertional shortness of breath, but had no chest pain. troponins x 3 were negative, and EKG showed no acute ST changes. He had stress test today which was abnormal, and showed appearance of somewhat more prominent ST segment depression in inferior leads during recovery, with reported LVEF of 71%. Cardiology was consulted and patient is to go for cardiac cath. Patient seen and examined. He has no complaints and feels well. Review of systems otherwise negative. Labs and vitals reviewed. o/e: Vital Signs Height 5 ft 10 in Weight: 220 lb 7.396 oz Weight in Pounds 220.5 lbs Pulse Ox 96 Temperature 97.4 F Pulse Rate 62 Respiratory Rate 18 Blood Pressure 150/74 Blood Pressure Position Semi-Fowlers General: Alert, Oriented x3, Cooperative HEENT: Atraumatic, PERRLA, EOMI, Normocephalic Neck: Supple, No JVD, Negative Carotid Bruits Lungs: Clear to auscultation, Normal air movement Cardiovascular: Regular rate, No murmurs Abdomen: Bowel Sounds Present, Soft, Non Tender Extremities: No edema, Capillary Refill Less than 3 Seconds Skin: No rashes, No breakdown Musculoskeletal: No Tenderness to Palpation of Joints or Extremities Neurological: Cranial nerves II-XII grossly intact Psych/Mental Status: Normal Affect, Appropriate, Alert and oriented to time, place, person, mood and affect Plan is for cardiac cath. rest of management as per Zac Matute PA-C's note, which I have reviewed and endorsed Code Visit OBSV E&M: 28563 Subsequent observation care L3
--- NOTE | 2019-01-03 13:31 | ECHOCS_ITS ---
Reason For Study: SOB Procedure This was a 2D Doppler, Color Flow transthoracic echocardiogram. The study was technically difficult. Contrast injection was performed. Exam performed portable in patient room. Left Ventricle Normal LV size. Moderate concentric left ventricular hypertrophy. Left ventricular systolic function is normal. The estimated ejection fraction is 65 %. Post operative septal motion. Diastolic function is indeterminate. No regional wall motion abnormalities noted. Right Ventricle Normal RV size. Normal systolic function. Atria The left atrium is mildly enlarged. Normal right atrium. No doppler evidence for ASD. Bubble contrast study negative for right to left interatrial shunt. Mitral Valve There is moderate to severe mitral annular calcification. Extension of the mitral annular calcification onto the bellies of the posterior mitral valve leaflet. Trivial mitral valve insufficiency. Tricuspid Valve Normal tricuspid valve. Trivial tricuspid valve insufficiency. Unable to estimate RV systolic pressure/pulmonary artery pressure due to technically difficult study. Aortic Valve Trisinus/trileaflet aortic valve. Mild focal aortic valve calcification. Trivial aortic valve insufficiency. Pulmonic Valve The pulmonic valve is not well visualized. Trivial pulmonic valve insufficiency. Great Vessels Normal sized aortic root. Pericardium/Pleural No pericardial effusion. Medication Performed a rapid injection of agitated mix of 9 cc saline and 1cc air to assess for atrial septal defect. Diluted definity 2ml given slow IV push to enhance endocardial definition. MMode/2D Measurements & Calculations LVIDd: 4.5 cm IVSd: 1.6 cm LVOT diam: 2.3 cm LVIDs: 2.7 cm LVPWd: 1.4 cm FS: 39.8 % LVOT area: 4.3 cm2 Ao root diam: 3.7 cm LAV(MOD-bp): 91.6 ml LA A4 area: 23.5 cm2 LAV(MOD-bp) Indexed: 42.2 ml/m2 LAV(MOD-sp2): 99.3 ml LAV(MOD-sp4): 72.7 ml LA dimension(2D): 4.8 cm RA A4 area: 15.5 cm2 Doppler Measurements & Calculations MV E max ciaran: 53.7 cm/sec Lat Peak E' Ciaran: 7.9 cm/sec Med Peak E' Ciaran: 4.5 cm/sec MV A max ciaran: 91.3 cm/sec E/E' lat: 6.8 E/E' med: 11.9 MV E/A: 0.59 Ao V2 max: 199.6 cm/sec LV V1 max: 104.1 cm/sec SV(LVOT): 95.5 ml Ao max P.0 mmHg LV V1 max P.3 mmHg Ao V2 mean: 131.7 cm/sec LV V1 mean P.3 mmHg Ao mean P.0 mmHg LV V1 mean: 70.0 cm/sec Ao V2 VTI: 35.1 cm LV V1 VTI: 22.3 cm ISABEL(I,D): 2.7 cm2 ISABEL(V,D): 2.2 cm2 PA V2 max: 107.7 cm/sec Interpretation Summary The study was technically difficult. Contrast injection was performed. Left ventricular systolic function is normal. The estimated ejection fraction is 65 %. Post operative septal motion. Moderate concentric left ventricular hypertrophy. The left atrium is mildly enlarged. Extension of the mitral annular calcification onto the bellies of the posterior mitral valve leaflet. Trivial mitral valve insufficiency. Trivial tricuspid valve insufficiency. Mild focal aortic valve calcification. Trivial aortic valve insufficiency. Trivial pulmonic valve insufficiency. Unable to estimate RV systolic pressure/pulmonary artery pressure due to technically difficult study. Diastolic function is indeterminate. Bubble contrast study negative for right to left interatrial shunt. Ordering Physician: Ankit Moncada Referring Physician: Eliceo Drummond Performed By: Clary Can RDCS
--- NOTE | 2019-01-03 13:47 | CL.D_ITS ---
Patient Name: RM CHAU Study Date: 01/03/2019 Performing: Ankit Moncada MD Ht: 70.07 inches 178 cm : 1940 Wt: 220.46 lbs 100 kg Age: 78 Gender: male BSA: 2.18 PROCEDURE(S) PERFORMED WO33-DYI/COR/LV/CABG CLINICAL PROFILE AND INDICATIONS Indications: Suspected CAD Heart Failure: None Stress/Imaging Date: 01/03/2019Stress Test with SPECT MPI: Indeterminant (abnormal ECG portion / negative myocardial perfusion portion) Angina Classification Anginal Classification w/in 2 Weeks: CCS III CAD Presentations: Other: shortness of breath with exertion CONCLUSIONS Normal Left Ventricular End Diastolic Pressure Normal LV size, wall motion,and systolic function LVEF: by LV gram 55 % [place] Multivessel CAD DODSON to LAD: patent SVG to OM1: patent SVG to RCA: patent Mitral Valve Annular Calcification Severe annular calcification RECOMMENDATIONS Risk factor modification Medical therapy DESCRIPTION OF PROCEDURE The patient arrived to the procedure lab. The risks and benefits of the procedure as well as a full d escription of our services here and current unavailability of surgical backup were fully explained to the patient and/or their significant other prior to the catheterization. The Timeout was completed, verifying the correct patient and procedure. The patient's procedural site was prepped and draped in the usual fashion. Local anesthetic was given subcutaneously to right groin region with Lidocaine 2%. Using a modified Seldinger technique, arterial access was obtained via the right femoral artery, a 4 Fr sheath was inserted Left Coronary Artery selective angiography was performed in multiple views us ing a 4 Fr. JL5 catheter. Right Coronary Artery selective angiography was then performed in multiple views using a 4 Fr. 3DRC catheter. Saphenous Vein graft to the OM 1 selective angiography was perform ed in multiple views using a 4 Fr. 3DRC catheter. Saphenous Vein graft to the RCA selective angiography was performed in multiple views using a 4 Fr. JR4 catheter. Left internal mamma ry artery graft to the LAD selective angiography was performed in multiple views using a 4 Fr. IM cat heter. Left Ventriculography was performed in CORREA projection using a 4 Fr. Pigtail catheter. LV to AO pullback pressures were then recorded.The arterial sheath was pulled and manual compression applied until hemostasis is achieved. CORONARY ANGIOGRAPHY DOMINANCE: Right Dominant LEFT HEART ASSESSMENT Left Ventricular Ejection Fraction: by LV Gram 55 % Normal LV wall motion Normal Left Ventricular End Diastolic Pressure LVEDP: 8 mmHg LEFT MAIN: distal: eccentric: 25 % Stenosis LEFT ANTERIOR DESCENDING ARTERY: PROX LAD: Previously placed stent has an instent 85 % restenosis MID LAD: fills from competitive flow but predominantly from the DODSON graft with no angiographically s ignificant appearing disease distal to the graft attachment CIRCUMFLEX ARTERY: Mild luminal irregularities OM 1: Proximal - 85 % Stenosis and also receives SVG graft flow RIGHT CORONARY ARTERY: PROX RCA: Previously placed stent is patent MID RCA: Previously placed stent is patent DISTAL RCA: Mild luminal irregularities RIGHT AV SEGMENT: small caliber vessel with eccentric 75 % Stenosis GRAFTS: DODSON graft to the Mid LAD is patent Saphenous Vein graft to the 1st OM is patent Saphenous Vein graft to the RCA is patent VALVE FINDINGS: Normal Aortic Valve function Mitral Valve Calcification: Annular Calcification: Severe AORTIC ROOT: Angiographically normal COMPLICATIONS No Complications PROCEDURE MEDICATIONS Versed 1 mg IV Oxygen: 2 L/min via nasal cannula SUMMARY OF HEMODYNAMIC DATA Time AIR REST ECG 12:30:08 AO 148/72 (103) SA 12:53:50 LV 160/-16, 8 13:17:53 LV 161/-19, 6 13:18:00 LV 152/-18, 17 13:19:02 LV 145/-18, 13 13:19:08 LVp 142/50, 59 13:19:14 AOp 150/60 (93) 13:19:19 Signed By Ankit Moncada MD On 01/03/2019 13:46:50 Ankit Moncada MD
[2019-01-03 13:49] LABS: Hemoglobin A1c 7.3 % (4.2-6.3)
[2019-01-03] MEDS: Pantoprazole Sodium 20 MG Tablet PO (14:51)
[2019-01-03] MEDS: Ferrous Gluconate 324 MG Tablet PO ×2 (14:51→21:16)
--- NOTE | 2019-01-03 14:51 | CHAPLAIN ---
patient was in a procedure but spouse was in room and talkative; spouse asks for prayers and welcomes a visit after pt returns
[2019-01-03 15:15] LABS: Bedside Glucose 133 mg/dL (70-110)
--- NOTE | 2019-01-03 15:21 | NURSING ---
this RN let primary RN Jennifer know about BP 207/104.
[2019-01-03] MEDS: hydrALAZINE 20 MG/ML Vial 10 MG IV (15:29)
[2019-01-03] MEDS: Albuterol 2.5 MG/3 ML VIAL.NEB. INHALATION (15:40)
--- NOTE | 2019-01-03 16:06 | CHAPLAIN ---
Type of Pastoral Visit _x__ Initial Visit ___ Follow-up Visit ___ On-call Visit ___ General Patient Visit ___ Spiritual Assessment ___ Family Conference ___ Bereavement ___ Rapid Response ___ Code Blue ___ Other (describe below) Pastoral Care Referral From _x__ Patient ___ Family ___ Nurse ___ Physician ___ Contract Paralegal ___ Command Post Craftsman ___ Other (describe below) Sacrament/Intervention _x__ Active listening ___ Anointing ___ Evangelical ___ Bereavement ___ Communion ___ [place] exploration ___ ___ Life review ___ Prayer ___ Reconciliation ___ Sacrament of Sick _x__ Supportive presence ___ Wedding ___ Other (describe below) Pastoral Comments
[2019-01-03] MEDS: 0.9% Normal Saline 1,000 ML 75 ML IV (16:47)
--- NOTE | 2019-01-03 20:09 | PN.CARD_ITS ---
Subjectve: The patient is status post diagnostic cardiac catheterization. He denies ongoing chest discomfort. He states he has felt somewhat short of breath and dyspneic. He is also noted that his blood pressure has been somewhat elevated. Objective: Vital Signs Temp Pulse Resp BP Pulse Ox 97.5 F L 70 18 179/84 H 97 01/03/19 16:49 01/03/19 18:51 01/03/19 17:54 01/03/19 17:54 01/03/19 17:54 Oxygen Delivery Method Room Air Weight: 220 lb 7.396 oz Body Mass Index (BMI) 31.6 Intake and Output for Last 24 Hours 01/01/19 01/02/19 01/03/19 23:59 23:59 23:59 Intake Total 360 / 360 2347.75 / 2347.75 Output Total 1625 / 1625 Balance 360 / 360 722.75 / 722.75 General: Awake, Alert, Oriented x 3, Cooperative, No Acute Distress HEENT: Atraumatic, Normocephalic, PERRL, EOMI, Sclera Non Icteric Oral: Moist Mucosa Neck: Supple, Good ROM, No JVD Lungs: Diminished Scar Bases Cardiovascular: Regular Rhythm, Normal S1, Normal S2 Vascular: Normal Femoral Pulses Abdomen: Bowel Sounds Present, Soft, Non Tender Extremities: Trace RLE Edema, Trace LLE Edema Neurological: No Focal Motor or Sensory Deficit Psych/Mental Status: Appropriate 01/03/19 05:41: WBC 7.4, RBC 4.32 L, Hgb 12.3 L, Hct 37.5 L, MCV 86.8, MCH 28.5, MCHC 32.8, Plt Count 179, MPV 10.1, Immature Gran % (Auto) 0.100, Neut % (Auto) 65.5, Lymph % (Auto) 21.8, [place] % (Auto) 10.1 H, Eos % (Auto) 2.0, Baso % (Auto) 0.5, Absolute Neuts (auto) 4.9, Nucleated RBC % 0 01/03/19 05:41: Sodium 141, Potassium 4.0, Chloride 106, Carbon Dioxide 28.0, Anion Gap 7, BUN 13, Creatinine 0.81, Est GFR (MDRD) Af Amer 119, Est GFR (MDRD) Non-Af 98, BUN/Creatinine Ratio 16.1, Glucose 153 H, Calcium 8.5, Triglycerides 104, Cholesterol 144, LDL Cholesterol 86, VLDL Cholesterol 21, HDL Cholesterol 37 L 01/03/19 05:41: Hemoglobin A1c 7.3 H Rhythm: Sinus rhythm Cardiac Cath: CORONARY ANGIOGRAPHY DOMINANCE: Right Dominant LEFT HEART ASSESSMENT Left Ventricular Ejection Fraction: by LV Gram 55 % Normal LV wall motion Normal Left Ventricular End Diastolic Pressure LVEDP: 8 mmHg LEFT MAIN: distal: eccentric: 25 % Stenosis LEFT ANTERIOR DESCENDING ARTERY: PROX LAD: Previously placed stent has an instent 85 % restenosis MID LAD: fills from competitive flow but predominantly from the DODSON graft with no angiographically significant appearing disease distal to the graft attachment CIRCUMFLEX ARTERY: Mild luminal irregularities OM 1: Proximal - 85 % Stenosis and also receives SVG graft flow RIGHT CORONARY ARTERY: PROX RCA: Previously placed stent is patent MID RCA: Previously placed stent is patent DISTAL RCA: Mild luminal irregularities RIGHT AV SEGMENT: small caliber vessel with eccentric 75 % Stenosis GRAFTS: DODSON graft to the Mid LAD is patent Saphenous Vein graft to the 1st OM is patent Saphenous Vein graft to the RCA is patent VALVE FINDINGS: Normal Aortic Valve function Mitral Valve Calcification: Annular Calcification: Severe AORTIC ROOT: Angiographically normal Medical Necessity - Tobacco Use Smoking Status: Former smoker Tobacco Use: Non-smoker, Cigarettes Assessment/Plan 1. Dyspnea The patient presents with concerns of dyspnea. The patient has undergone further invasive evaluation. He has underlying [place] vessel CAD, his DODSON to the LAD is patent, and his SVG to the OM is patent, and his SVG to the RCA is patent, and his LV systolic function appeared to be preserved. He is pending further evaluation, based upon his history of mitral annular calcification, with echocardiogram to further assess his mitral valve anatomy and physiology. In the meantime it has been noted that his blood pressures have been elevated. This may be a contributing factor to his sensation of dyspnea. He will receive additional medical therapy in an attempt to bring his blood pressure under better control. As he may have accumulated some fluid with his procedure earlier this day this will include a diuretic in addition to another antihypertensive agent. 2. CAD status post PCI-remote status post CABG-remote The patient has undergone previous diagnosis of CAD and revascularization th shamar in the past. He has been on medical management. His cardiac catheterization did not demonstrate the need for further revascularization therapy. 3. Hyperlipidemia The patient will continue medical management. 4. Hypertension The patient will continue medical therapy and follow-up. Medications may need to be adjusted to bring his blood pressure under better control. 5. Diabetes mellitus The patient will continue under the care of internal medicine. 6. Peripheral artery disease He underwent cardiac catheterization this day via the right femoral artery approach without obvious peripheral vascular concerns or compromise. Comment: The patient's case has been discussed and reviewed with the patient. This note was generated using a voice recognition system and there may be i ncorrect words, spelling or punctuation that were not noted when reviewing the office note prior to saving.
[2019-01-03] MEDS: Furosemide 20 MG/2 ML VIAL IV (21:13)
[2019-01-03] MEDS: amLODIPine 5 MG Tablet PO (21:13)
[2019-01-03] MEDS: Pravastatin 40 MG Tablet PO (21:17)
[2019-01-03] MEDS: Insulin Lispro 100 UNIT/ML INSULN.PEN SC (21:25)
[2019-01-03] MEDS: 0.9% NaCl Peripheral Flush Adult/Peds IV (21:25)
[2019-01-03 22:10] LABS: Bedside Glucose 220 mg/dL (70-110)
[2019-01-04] VITALS (7 sets, daily range): BP systolic 101–132; BP diastolic 50–60; PULSE 60–71; RESP 16; TEMP 36.4–36.9; O2SAT 94–96
[2019-01-04 06:15] LABS: Hematocrit 39.9 % (40-54); Hemoglobin 13.2 g/dL (13.0-16.5)
[2019-01-04 06:37] LABS: Anion Gap 7 (5-15); BUN 12 mg/dL (7-18); Calcium,Total 8.7 mg/dL (8.5-10.1); Chloride 104 mmol/L (98-107); Creatinine, Serum 0.92 mg/dL (0.70-1.30); EST Glomerular Filtration Rate 84 mL/min (>60); Est Glom Filt Rate - Afr Amer 102 mL/min (>60); Estimated Creatinine Clearance 68.33 ml/min; Glucose 149 mg/dL (74-106); Potassium 3.7 mmol/L (3.5-5.1); Sodium Level 138 mmol/L (136-145)
[2019-01-04] MEDS: Insulin Lispro 100 UNIT/ML INSULN.PEN SC ×2 (06:59→11:56)
[2019-01-04 07:12] LABS: Bedside Glucose 173 mg/dL (70-110)
[2019-01-04] MEDS: Aspirin 81 MG TAB.CHEW PO (07:56)
[2019-01-04] MEDS: Ferrous Gluconate 324 MG Tablet PO (07:56)
--- NOTE | 2019-01-04 08:53 | PCM.PN.CARD ---
Subjectve: The patient is awake and alert. He states his breathing is much improved. He has no complaints of ongoing chest discomfort. Objective: Vital Signs Temp Pulse Resp BP Pulse Ox 97.6 F L 71 16 106/50 L 95 01/04/19 03:10 01/04/19 07:32 01/04/19 03:10 01/04/19 03:10 01/04/19 07:18 Oxygen Delivery Method Room Air Weight: 220 lb 7.396 oz Body Mass Index (BMI) 31.6 Intake and Output for Last 24 Hours 01/02/19 01/03/19 01/04/19 23:59 23:59 23:59 Intake Total 360 / 360 2747.75 / 2747.75 100 / 100 Output Total 1625 / 1625 Balance 360 / 360 1122.75 / 1122.75 100 / 100 General: Awake, Alert, Oriented x 3, Cooperative, No Acute Distress HEENT: Atraumatic, Normocephalic, PERRL, EOMI, Sclera Non Icteric Oral: Moist Mucosa Neck: Supple, Good ROM, No JVD Lungs: Clear to auscultation Cardiovascular: Regular Rhythm, Normal S1, Normal S2 Vascular: Normal Femoral Pulses Abdomen: Bowel Sounds Present, Soft, Non Tender Extremities: No edema Neurological: No Focal Motor or Sensory Deficit Psych/Mental Status: Appropriate 01/03/19 05:41: Hemoglobin A1c 7.3 H 01/04/19 05:38: Sodium 138, Potassium 3.7, Chloride 104, Carbon Dioxide 27.0, Anion Gap 7, BUN 12, Creatinine 0.92, Est GFR (MDRD) Af Amer 102, Est GFR (MDRD) Non-Af 84, BUN/Creatinine Ratio 13.0, Glucose 149 H, Calcium 8.7 01/04/19 05:38: Hgb 13.2, Hct 39.9 L Rhythm: Sinus rhythm Medical Necessity - Tobacco Use Smoking Status: Former smoker Tobacco Use: Non-smoker, Cigarettes Assessment/Plan 1. Dyspnea The patient presents with concerns of dyspnea. The patient has undergone further invasive evaluation. He has underlying [place] vessel CAD, his DODSON to the LAD is patent, and his SVG to the OM is patent, and his SVG to the RCA is patent, and his LV systolic function appeared to be preserved. He is pending further evaluation, based upon his history of mitral annular calcification, with echocardiogram to further assess his mitral valve anatomy and physiology. 2. CAD status post PCI-remote status post CABG-remote The patient has undergone previous diagnosis of CAD and revascularization therapy in the past. He has been on medical management. His cardiac catheterization did not demonstrate the need for further revascularization therapy. 3. Hyperlipidemia The patient will continue medical management. 4. Hypertension The patient will continue medical therapy and follow-up. His blood pressure came under better control after receiving his diuretic therapy and amlodipine therapy yesterday evening. He also noted he felt much better after receiving his medications. At the present time he will continue medical management with the addition of a diuretic as well as the amlodipine therapy. 5. Diabetes mellitus The patient will continue under the care of internal medicine. 6. Peripheral artery disease He underwent cardiac catheterization this day via the right femoral artery approach without obvious peripheral vascular concerns or compromise. Comment: The patient's case has been discussed and reviewed with the patient. This note was generated using a voice recognition system and there may be incorrect words, spelling or punctuation that were not noted when reviewing the office note prior to saving.
--- NOTE | 2019-01-04 09:49 | CASEMGMT ---
Addendum entered by Daniella Sarmiento 01/04/19 14:10: SW spoke w/pt and in regard to POA form, as it is from [place]. Pt's states she checked with a production officer when they moved here and were told the document is fine, so they do not feel the need to re-do the POA/LW [place] forms. No further needs anticipated. MARCO Hernandez Original Note: Pt has medical POA form in the summary tab of the echart, and the document also addresses the living will. Pt has [facility] listed as Medical POA. MARCO Hernandez
--- NOTE | 2019-01-04 10:13 | CASEMGMT ---
BERNA RIOS assessment: Face to Face with patient for initial transition planning/care coordination assessment. BERNA RIOS introduced self and role at [facility], pt voices understanding and consents to assessment at this time. Pt is sitting up in bed in no distress at this time. Pt is A/Ox4 at this time and answers all questions appropriately at this time. is at bedside during assessment. Care providers, pharmacy, and demographics verified/updated at this time. PCP: Bhanu Specialists: Rebaw, cardio; Sorin, uro onc at [facility] Preferred Pharmacy: [facility] Insurance: MCR A/B, [employer] Prescription Benefit: [employer] Living Will/HPOA: Pt states has LW/HPOA and is aware at this time that LW is not on file at [facility] at this time. Pt states his , [facility], is HPOA. LNOK: [facility], Living Arrangements: Pt states lives with in 1 story home and states no concerns at home at this time. Pt states is independent with ADL's. Transportation: Pt states drives self and states no transportation concerns at this time. DME/HHC: Pt states has walkers(does not use), grab bars and shower chair. states that master bath is completely HCP accessible. Pt states had HHC set up briefly s/p triple bypass years ago and pt states no hx of SNF in the past. Pt/ state no concerns with pt going home at time of discharge. Pt states is retired. Pt states does not smoke or drink ETOH. Pt states no further concerns/needs at this time. CM to follow for any further discharge planning/needs. Advised pt to ask for CM if any further questions/concerns/needs arise, voices understanding. Pt Goal: Home Plan[place] BERNA RIOS
[2019-01-04] MEDS: Pantoprazole Sodium 20 MG Tablet PO (10:34)
[2019-01-04] MEDS: Metoprolol(XL)Succ 25 MG Tablet PO (10:34)
[2019-01-04] MEDS: Enoxaparin 40 MG/0.4 ML Syringe SC (10:34)
[2019-01-04] MEDS: Losartan Potassium 50 MG Tablet PO (10:34)
[2019-01-04] MEDS: Furosemide 20 MG Tablet PO (10:37)
[2019-01-04] MEDS: amLODIPine 2.5 MG Tablet PO (10:37)
[2019-01-04 12:00] LABS: Bedside Glucose 195 mg/dL (70-110)
--- NOTE | 2019-01-04 14:09 | DCINST_ITS ---
- Discharge Diagnoses Current Active Problems: Current Active and Chronic Problems (Last Updated 01/03/19 @ 17:11 by Nai Borja) Chest pain (Acute) Dyspnea (Acute) CAD in [place] artery (Chronic) You will use the following diet at home:: Calorie/Carbohydrate Controlled (specify 1200, 1400, etc) - 1800 jennifer / day, Cardiac Your food should be the consistency of: Regular Your liquids should be the consistency of: Regular/Thin Discharge Activity: Return to Normal Activity Allergies/Adverse Reactions: Allergies atorvastatin [From Lipitor] Allergy (Verified 01/02/19 11:03) Rash codeine Allergy (Verified 01/02/19 11:03) Rash Medications to take at Discharge Aspirin [Aspirin, Baby] 162 mg PO DAILY@0800 10/12/16 pravastatin 40 mg tablet 40 mg PO QHS #90 tab 04/15/17 ferrous gluconate 324 mg (37.5 mg iron) tablet 324 mg PO BID tab 07/18/18 losartan 50 mg tablet 50 mg PO DAILY 07/18/18 omeprazole 20 mg capsule,delayed release 20 mg PO DAILY 07/18/18 Amlodipine [Norvasc] 2.5 mg PO DAILY #30 tab 01/04/19 Furosemide [Lasix] 20 mg PO DAILY #30 tab 01/04/19 Metoprolol(XL)Succ [Toprol Xl (Beta Ricki)] 25 mg PO DAILY #30 tab 01/04/19 metFORMIN HCl [Glucophage] 1,000 mg PO BIDCM #0 01/04/19 The following prescriptions were given: Furosemide [Lasix] 20 mg PO DAILY #30 tab Transmission Status: Pending to [id number] Amlodipine [Norvasc] 2.5 mg PO DAILY #30 tab Transmission Status: Pending to [id number] Metoprolol(XL)Succ [Toprol Xl (Beta Ricki)] 25 mg PO DAILY #30 tab Transmission Status: Pending to [id number] Primary Care Physician: Eliceo Drummond MD [Primary Care Provider] - Please follow up with your Primary Care Physician in: 1-2 weeks Test Results: Test results from this visit will be discussed in further detail at your follow- up appointment, if applicable. Please Follow Up With: Roberto Woods NP-C When: as directed Proposed Discharge Date: 01/04/19
--- NOTE | 2019-01-04 14:29 | DS.PCM_ITS ---
<Zac Matute - Last Filed: 01/04/19 14:29> Discharge Date and Diagnosis Date of Admission: 01/02/19 Date of Discharge: 01/04/19 - Primary Discharge Diagnosis Dyspnea, 2/2 volume overload Hx CAD, CABG DMt2 with morbid obesity HTN HLD Former Smoker Iron def. anemia - Secondary Discharge Diagnosis Chronic Problems (Last Updated 01/03/19 @ 17:11 by Nai Borja) CAD in [place] artery (Chronic) Pure hypercholesterolemia (Chronic) Essential hypertension (Chronic) S/P CABG x 3 (Chronic ~07/21/16) CABG X 3 DODSON to LAD, SVG to OM, SVG to RCA 07/21/16 Atherosclerotic heart disease of [place] coronary artery without angina pectoris (Chronic) Penile ca (Chronic) DM (diabetes mellitus), type 2 (Chronic) Bladder cancer (Chronic) Hx of heart artery stent (Chronic) LHC X 1 stent to LAD ; LHC X 4 stents proximal RCA Murmur, cardiac (Chronic) Peripheral arterial disease (Chronic) PVD (peripheral vascular disease) (Chronic) Obesity (BMI 30.0-34.9) (Chronic) Prostate ca (Chronic) had a prostatectomy Hospital Course and Treatment Imaging Results: RAD/Chest PA and Lateral IMPRESSION: No acute pathology DIAGNOSTICS: Stress test: Impression: 1. Rest and stress SPECT Cardiolite nuclear imaging demonstrate relative uniform tracer uptake and myocardial perfusion appearing within normal limits. 2. The gated Cardiolite study reports an LVEF of 71 %. Echo: Interpretation Summary The study was technically difficult. Contrast injection was performed. Left ventricular systolic function is normal. The estimated ejection fraction is 65 %. Post operative septal motion. Moderate concentric left ventricular hypertrophy. The left atrium is mildly enlarged. Extension of the mitral annular calcification onto the bellies of the posterior mitral valve leaflet. Trivial mitral valve insufficiency. Trivial tricuspid valve insufficiency. Mild focal aortic valve calcification. Trivial aortic valve insufficiency. Trivial pulmonic valve insufficiency. Unable to estimate RV systolic pressure/pulmonary artery pressure due to technically difficult study. Diastolic function is indeterminate. Bubble contrast study negative for right to left interatrial shunt. Left heart cath CONCLUSIONS Normal Left Ventricular End Diastolic Pressure Normal LV size, wall motion,and systolic function LVEF: by LV gram 55 % [place] Multivessel CAD DODSON to LAD: patent SVG to OM1: patent SVG to RCA: patent Mitral Valve Annular Calcification Severe annular calcification RECOMMENDATIONS Risk factor modification Medical therapy Consults: [place] - Cardiology Operations: None Procedures: 2-D Echocardiogram, Cardiac catheterization, Stress test Summary of Care Provided: Hospital course: The patient is a 78 year old M with a pmhx notable for CAD with prior CABG, who presented to the ER with progressively worsening exertional dyspnea. He denied chest pain. His exercise tolerance had significantly worsened. He had a negative EKG, negative troponin, negative chest x-ray. He was admitted to the PCU with concerns for angina equivalent. Troponin was cycled x3 and was negative. He had no events on telemetry. He went for a stress test the following day which was abnormal. Cardiology was consulted. He was taken for a cardiac catheterization which demonstrated results as above, nothing requiring acute intervention. He continued to have worsening dyspnea after the cardiac catheterization. Cardiology placed him on Lasix, he had significant urinary output and relief of his shortness of breath completely. The following morning a a 2D echocardiogram was obtained. This demonstrated EF of 65%, normal systolic function, moderate LVH, mild left atrial enlargement, moderate to severe mitral annular calcification. His metoprolol was decreased from 50-25, he was placed on low-dose Norvasc, and he was placed on low-dose Lasix. He was discharged home in stable condition. He will follow-up with his PCP in 1 to 2 weeks, and follow-up with cardiology as directed. This patient was seen by Zac Matute PA-C under the supervision of Doctor Morales. [] - Physical Exam General: Alert, Oriented x3, Cooperative HEENT: Atraumatic, PERRLA, EOMI, Normocephalic Neck: Supple, No JVD, Negative Carotid Bruits Lungs: Clear to auscultation, Normal air movement Cardiovascular: Regular rate, No murmurs Abdomen: Bowel Sounds Present, Soft, Non Tender Extremities: No edema, Capillary Refill Less than 3 Seconds Skin: No rashes, No breakdown Musculoskeletal: No Tenderness to Palpation of Joints or Extremities Neurological: Cranial nerves II-XII grossly intact Psych/Mental Status: Normal Affect, Appropriate, Alert and oriented to time, place, person, mood and affect Vital Signs Temp Pulse Resp BP Pulse Ox 98.3 F 68 16 132/59 H 96 01/04/19 10:30 01/04/19 10:34 01/04/19 10:30 01/04/19 10:34 01/04/19 10:30 Oxygen Delivery Method Room Air Weight: 220 lb 7.396 oz Body Mass Index (BMI) 31.6 Intake and Output for Last 24 Hours 01/02/19 01/03/19 01/04/19 23:59 23:59 23:59 Intake Total 360 / 360 2747.75 / 2747.75 560 / 560 Output Total 1625 / 1625 Balance 360 / 360 1122.75 / 1122.75 560 / 560 Laboratory Tests Past 24 Hrs 01/04/19 01/04/19 05:38 05:38 Hgb 13.2 Hct 39.9 L Sodium 138 Potassium 3.7 Chloride 104 Carbon Dioxide 27.0 Anion Gap 7 BUN 12 Creatinine 0.92 Estim Creat Clear Calc 68.33 Est GFR (MDRD) Af Amer 102 Est GFR (MDRD) Non-Af 84 BUN/Creatinine Ratio 13.0 Glucose 149 H Calcium 8.7 POC Glucose 01/04/19 01/04/19 01/03/19 11:54 06:58 21:16 POC Glucose 195 H 173 H 220 H 01/03/19 15:13 POC Glucose 133 H Discharge Diet: Low fat/ Low Cholesterol, 1800 Calorie Control Diet, 2000 mg Sodium Diet Discharge Activity: Return to Normal Activity Home Medications: Medications to take at Discharge Aspirin [Aspirin, Baby] 162 mg PO DAILY@0800 10/12/16 pravastatin 40 mg tablet 40 mg PO QHS #90 tab 04/15/17 ferrous gluconate 324 mg (37.5 mg iron) tablet 324 mg PO BID tab 07/18/18 losartan 50 mg tablet 50 mg PO DAILY 07/18/18 omeprazole 20 mg capsule,delayed release 20 mg PO DAILY 07/18/18 Amlodipine [Norvasc] 2.5 mg PO DAILY #30 tab 01/04/19 Furosemide [Lasix] 20 mg PO DAILY #30 tab 01/04/19 Metoprolol(XL)Succ [Toprol Xl (Beta Ricki)] 25 mg PO DAILY #30 tab 01/04/19 metFORMIN HCl [Glucophage] 1,000 mg PO BIDCM #0 01/04/19 Following Prescrptions Were Given to Patient: Furosemide [Lasix] 20 mg PO DAILY #30 tab Transmission Status: Received by [id number] Amlodipine [Norvasc] 2.5 mg PO DAILY #30 tab Transmission Status: Received by [id number] Metoprolol(XL)Succ [Toprol Xl (Beta Ricki)] 25 mg PO DAILY #30 tab Transmission Status: Received by [id number] Primary Care Physician: Eliceo Drummond MD [Primary Care Provider] - Please follow up with your Primary Care Physician in: 1-2 weeks Please Follow Up With: Eliceo Drummond MD Please Follow Up With: Roberto Woods NP-C When: as directed Disposition: Home Minutes spent on discharge:: 35 Patient Condition:: Stable Medical Necessity - Tobacco Use Smoking Status: Former smoker Tobacco Use: Non-smoker, Cigarettes Meaningful Use Info Meaningful Use Diagnoses (Choose all that apply): None applicable <Dipika Morales - Last Filed: 01/04/19 16:47> Discharge Date and Diagnosis - Secondary Discharge Diagnosis Chronic Problems (Last Updated 01/03/19 @ 17:11 by Nai Borja) CAD in [place] artery (Chronic) Pure hypercholesterolemia (Chronic) Essential hypertension (Chronic) S/P CABG x 3 (Chronic ~07/21/16) CABG X 3 DODSON to LAD, SVG to OM, SVG to RCA 07/21/16 Atherosclerotic heart disease of [place] coronary artery without angina pectoris (Chronic) Penile ca (Chronic) DM (diabetes mellitus), type 2 (Chronic) Bladder cancer (Chronic) Hx of heart artery stent (Chronic) LHC X 1 stent to LAD ; LHC X 4 stents proximal RCA Murmur, cardiac (Chronic) Peripheral arterial disease (Chronic) PVD (peripheral vascular disease) (Chronic) Obesity (BMI 30.0-34.9) (Chronic) Prostate ca (Chronic) had a prostatectomy Hospital Course and Treatment Summary of Care Provided: Patient seen by Zac Matute PA-C under my supervision The patient is a 78 year old M with a PMH as listed. HE was admitted with a complaint of exertional shortness of breath. He had no associated chest pain.EKG showed no acute St changes, and troponins x 3 were negative. He had a stress test which was abnormal, and showed more prominent ST segment depression in inferior leads. he had cardiac cath which showed [place] vessel coronary artery disease with patent grafts and stents. LV function was also preserved. He had a 2D echocardiogram on 01/04/2019 which showed EF of 65%, LVSF which was normal and indeterminate diastolic dysfunction, as well as moderate to severe mitral annular calcification, and extension fo mitral annular calcification onto the bellies of the posterior mitral valve leaflet. Metoprolol was decreased from 50mg to 25mg, he was placed on low dose amlodipine and also low dose lasix. He remained stable and was discharged home on 01/04/19. He is to follow up with his PCP and cardiology. Patient seen and examined prior to discharge. He had no complaints and felt well and was eager to go home. Review of systems was otherwise negative. Labs and vitals reviewed. o/e: Vital Signs Height 5 ft 10 in Weight: 220 lb 7.396 oz Weight in Pounds 220.5 lbs Pulse Ox 95 Temperature 98.4 F Pulse Rate 63 Respiratory Rate 16 Blood Pressure 101/60 Blood Pressure Position Semi-Fowlers [] General: Alert, Oriented x3, Cooperative HEENT: Atraumatic, PERRLA, EOMI, Normocephalic Neck: Supple, No JVD, Negative Carotid Bruits Lungs: Clear to auscultation, Normal air movement Cardiovascular: Regular rate, No murmurs Abdomen: Bowel Sounds Present, Soft, Non Tender Extremities: No edema, Capillary Refill Less than 3 Seconds Skin: No rashes, No breakdown Musculoskeletal: No Tenderness to Palpation of Joints or Extremities Neurological: Cranial nerves II-XII grossly intact Psych/Mental Status: Normal Affect, Appropriate, Alert and oriented to time, place, person, mood and affect Plan as above. Rest of management as per Zac Matute PA-C's note, which I have reviewed and endorsed. - Physical Exam Vital Signs Temp Pulse Resp BP Pulse Ox 98.4 F 63 16 101/60 95 01/04/19 14:51 01/04/19 14:51 01/04/19 14:51 01/04/19 14:51 01/04/19 14:51 Oxygen Delivery Method Room Air Weight: 220 lb 7.396 oz Body Mass Index (BMI) 31.6 Intake and Output for Last 24 Hours 01/02/19 01/03/19 01/04/19 23:59 23:59 23:59 Intake Total 360 / 360 2747.75 / 2747.75 560 / 560 Output Total 1625 / 1625 Balance 360 / 360 1122.75 / 1122.75 560 / 560 Laboratory Tests Past 24 Hrs 01/04/19 01/04/19 05:38 05:38 Hgb 13.2 Hct 39.9 L Sodium 138 Potassium 3.7 Chloride 104 Carbon Dioxide 27.0 Anion Gap 7 BUN 12 Creatinine 0.92 Estim Creat Clear Calc 68.33 Est GFR (MDRD) Af Amer 102 Est GFR (MDRD) Non-Af 84 BUN/Creatinine Ratio 13.0 Glucose 149 H Calcium 8.7 POC Glucose 01/04/19 01/04/19 01/03/19 11:54 06:58 21:16 POC Glucose 195 H 173 H 220 H Code Visit Inpatient E&M: 26978 Disch Hosp
--- NOTE | 2019-01-05 15:59 | CASEMGMT ---
BERNA CM DC PHONE CALL DC DATE: 01/04/19 DC Disposition: Home Diagnosis on Discharge: CP LACE/STRATA: 11/29 Attempted call to listed phone #. No answer, and no name identifier on message machine. Vineet KONGN RN ACM
== END 2019-01-04 15:15 | disposition home or self-care (01) | DRG 641 ==
LOC: ED 11:37 → PCU 13:38
PROVIDERS: Internal Medicine Cardiovascular Disease; Physician Assistant; Admitting Provider Family Medicine; Emergency Provider Emergency Medicine; Family Provider Family Medicine; PCP Family Medicine; Referring Provider Family Medicine; Visit Provider Student in an Organized Health Care Education/Training Program
DX: E87.70 Fluid overload, unspecified (principal); I25.10 Atherosclerotic heart disease of native coronary artery without angina pectoris; E78.5 Hyperlipidemia, unspecified; I10 Essential (primary) hypertension; K21.9 Gastro-esophageal reflux disease without esophagitis; E66.9 Obesity, unspecified; D50.9 Iron deficiency anemia, unspecified; E11.51 Type 2 diabetes mellitus with diabetic peripheral angiopathy without gangrene; Z68.31 Body mass index [BMI] 31.0-31.9, adult; Z71.3 Dietary counseling and surveillance; Z95.1 Presence of aortocoronary bypass graft; Z87.891 Personal history of nicotine dependence
CPT/HCPCS: 36415; 71046; 78452; 80048; 80061; 82962; 83036; 83735; 84484; 85014; 85018; 85025; 93005; 93017; 93306; 93459; 94640; 97802; 99152; 99153; 99285; A9500; J7030; Q9957; Q9967; A4216; C1769; C1894; C8929; J1940; J2785

== ENCOUNTER 2019-05-24 11:55 | Inpatient (IN) | payer MEDICARE, OTHER, SELFPAY ==
[2019-01-19 13:11] VITALS: BMI 32.8
[2019-05-24] VITALS (9 sets, daily range): BP systolic 99–138; BP diastolic 46–69; PULSE 55–77; RESP 16–19; TEMP 36.7–36.8; O2SAT 95–99; BMI 30.8
--- NOTE | 2019-05-24 12:45 | EKG12_ITS ---
Test Reason : GEN ILL Blood Pressure : / mmHG Vent. Rate : 063 BPM Atrial Rate : 063 BPM P-R Int : 176 ms QRS Dur : 104 ms QT Int : 446 ms P-R-T Axes : -29 -43 -16 degrees QTc Int : 456 ms Normal sinus rhythm Left axis deviation Nonspecific ST abnormality Abnormal ECG Confirmed by TEMO AN, PRATIK ([id number]), editor producer ALESSANDRO AGUAYO ([id number]) on 05/29/2019 8:42:30 AM Referred By: Confirmed By:LAURA PLASCENCIA MD
--- NOTE | 2019-05-24 12:51 | RAD_ITS ---
EXAM DESCRIPTION: PORTABLE AP CHEST CLINICAL HISTORY: 78 years Male, GENERAL ILLNESS AND SOB GENERAL ILLNESS AND SOB COMPARISON: Previous chest obtained on 01/02/2019 FINDINGS: Sternotomy sutures are noted in place. The rest of the thorax is intact. The heart and mediastinum appear to be within normal limits. The lungs appear to be well areated without evidence of pneumonic consolidation or pleural effusion. RAD/Chest 1 View (Portable) IMPRESSION: No acute pathology. Electronically Signed: Robetro Bustamante, at 13:59 EST Tel , Service support ,
[2019-05-24 13:08] LABS: Absolute Lymphocyte Count 0.91 X10^3/uL (0.83-4.51); Absolute Neutrophil Count 3.2 X10^3/uL (2.0-7.7); Basophil# 0.02 X10^3/uL; Basophil% 0.4 % (0-1); Eosinophil# 0.04 X10^3/uL; Eosinophils% 0.8 % (0-5); Hematocrit 40.4 % (40-54); Hemoglobin 13.5 g/dL (13.0-16.5); Lymphocyte # 0.91 X10^3/ul (4.0); Lymphocyte % 18.8 % (19-41); Mean Corp Hgb Conc 33.4 g/dL (32-36); Mean Corpuscular Hgb 28.6 pg (27.0-32.0); Mean Corpuscular Volume 85.6 fL (80-94); Mean Platelet Vol. 10.9 fl (6.2-12.0); Monocyte# 0.67 X10^3/uL; Monocyte% 13.9 % (0-10); NRBC Flagged by Analyzer 0 % (0-5); Neutrophil # 3.18 X10^3/uL (2.7-7.7); Neutrophil % 65.9 % (47-70); Platelet Count 170 K/mm3 (150-450); RBC Distribution Width CV 12.3 % (11.6-14.6); RBC Distribution Width SD 38.5 fl (35.1-43.9); Red Blood Count 4.72 M/mm3 (4.6-6.2); White Blood Count 4.8 K/mm3 (4.4-11.0)
[2019-05-24 13:27] LABS: AST(SGOT) 68 U/L (15-37); Alanine Aminotransfer ALT/SGPT 61 U/L (16-61); Albumin, Serum 3.5 g/dL (3.2-5.0); Alkaline Phosphatase 59 U/L (45-117); Anion Gap 9 (5-15); BUN 19 mg/dL (7-18); BUN/Creat Ratio 17.9 RATIO (10-20); Calcium,Total 8.3 mg/dL (8.5-10.1); Chloride 102 mmol/L (98-107); Creatinine, Serum 1.06 mg/dL (0.70-1.30); EST Glomerular Filtration Rate 72 mL/min (>60); Est Glom Filt Rate - Afr Amer 87 mL/min (>60); Globulin 3.5 g/dL (2.2-4.2); Glucose 136 mg/dL (74-106); Potassium 3.6 mmol/L (3.5-5.1); Sodium Level 136 mmol/L (136-145)
--- NOTE | 2019-05-24 14:53 | ED.DCSUM_ITS ---
History of Present Illness Chief Complaint: General Illness Narrative: Patient arrives with his who is also a patient, he started having myalgias cough congestion some chills about 3 days ago, it is now improving. He did feel lightheaded and he did fall yesterday but he had no injury. He has no fever currently, he has no difficulty breathing his myalgias have significantly improved and he is able to ambulate. Denies any chest pain. Past Medical History - Allergies and Home Meds Allergies/Adverse Reactions: Allergies atorvastatin [From Lipitor] Allergy (Verified 05/24/19 11:55) Rash codeine Allergy (Verified 05/24/19 11:55) Rash Primary Care Physician: Eliceo Drummond MD [Primary Care Provider] - Past Medical History: - - Heart disease, hypertension, hypercholesterolemia Surgical History: angioplasty, - - Atherectomy right femoral artery in December 2013. Prostatectomy and resection of a penile cancer and bladder cancer. Coronary stents to the right coronary artery and left anterior descending artery. Smoking Status: Former smoker - Family History Paternal Family History: Family History (Last Reviewed 07/18/18 @ 13:32 by Nai Borja) Father CAD (coronary artery disease) Brother CAD (coronary artery disease) Mother CAD (coronary artery disease) Family History: Reports: Heart Disease, Stroke - His father of a hemorrha gic CVA. Sibling Family History: Family History (Last Reviewed 07/18/18 @ 13:32 by Nai Borja) Father CAD (coronary artery disease) Brother CAD (coronary artery disease) Mother CAD (coronary artery disease) Family History: Reports: - - He has 2 brothers who have coronary artery disease. Review of Systems General: Reports: Chills, - - Generalized weakness which is improving Eyes: Denies: Visual changes - bilaterally ENT: Reports: Rhinorrhea. Denies: Bilateral ear pain, Sore throat Cardiovascular: Denies: Chest pain Respiratory: Reports: Cough. Denies: Dyspnea, Sputum Gastrointestinal: Denies: Abdominal pain Genitourinary: Denies: Dysuria Musculoskeletal: Reports: Myalgias. Denies: Neck pain, Back pain Skin: Denies: Rash Neurological: Reports: - - No headache no focal weakness Hematologic: Denies: Easy bruising Physical Exam Vital Signs/Narrative: Vital Signs Temp Pulse Resp BP Pulse Ox 05/24/19 14:10 64 16 138/66 H 96 02/26/20 11:56 98.0 F 71 19 H 99/46 L 96 General: Well nourished Head: Normocephalic Eyes: Perrl, EOMI ENT: Dry mucous membranes, Nasal congestion Cardiovascular: Regular rate, Regular rhythm, No murmurs Respiratory: No distress, CTA bilaterally Abdomen: Soft, Nontender Back: Nontender. Negative for: CVA tenderness Extremities: Nontender, No edema Skin: Normal color Neurological: Alert, Oriented x3 Psychological: Normal affect Diagnostic/Tx/Re-eval Chest X-Ray - ED: 1 View, Normal, Heart, Lungs - EKG Initial EKG Interpretation: - - Normal sinus rhythm with a rate of 63. Normal OK and QTc interval. Nonspecific ST abnormality. Interpreted by emergency doctor - Medical Decision Making Normal chest x-ray his blood works unremarkable his vitals are normal he appears well he tells me he is improving. ED Disposition - Plan for ED Patient: Disposition: Home or Assisted Living Diagnosis: Influenza Instructions: Influenza Referrals: Eliceo Drummond MD [Primary Care Provider] - 2 Days
--- NOTE | 2019-05-24 15:27 | ED.RN ---
IV DC'ED, CATHETER INTACT, SMALL GAUZE DRESSING PLACED. DISCHARGE INSTRUCTIONS GIVEN TO AND REVIEWED WITH PATIENT, PATIENT DENIES QUESTIONS OR CONCERNS AND VOICES UNDERSTANDING OF DISCHARGE INSTRUCTIONS. PT AMBULATE OUT OF ROOM WITHOUT DIFFICULTY.
--- NOTE | 2019-05-24 15:57 | PCM.HP.STD ---
Problem List (1) Influenza Status: Acute (2) Chest pain Status: Acute Qualifiers: Chest pain type: unspecified Qualified Code(s): R07.9 - Chest pain, unspecified (3) Cardiac enzymes elevated Status: Acute (4) Pure hypercholesterolemia Status: Chronic (5) Essential hypertension Status: Chronic (6) S/P CABG x 3 Status: Chronic Comment: CABG X 3 DODSON to LAD, SVG to OM, SVG to RCA 07/21/16 (7) Atherosclerotic heart disease of [place] coronary artery without angina pectoris Status: Chronic Qualifiers: [place] vs. 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 (9) DM (diabetes mellitus), type 2 Status: Chronic Qualifiers: Diabetes mellitus predatory animal exterminator insulin use: without predatory animal exterminator use Diabetes mellitus complication status: with other specified complication Qualified Code(s): E11.69 - Type 2 diabetes mellitus with other specified complication (10) Bladder cancer Status: Chronic Qualifiers: Bladder location: unspecified site Qualified Code(s): C67.9 - Malignant neoplasm of bladder, unspecified (11) Peripheral arterial disease Status: Chronic (12) PVD (peripheral vascular disease) Status: Chronic (13) Obesity (BMI 30.0-34.9) Status: Chronic (14) Prostate ca Status: Chronic Comment: had a prostatectomy History of Present Illness Date of Admission: 05/24/19 Chief Complaint: Recent syncope event, CP, now URI sxs, dx Influenza The patient is a 78 y/o M w/ PMHx: Hx Bladder, Penile and Prostate CA, Fe deficiency anemia, HTN, HLD, GERD, Diabetes mellitus type II, Obesity, CAD s/p CABG x 3 and PCI x ~ 4, PAD/PVD s/p RLE stent who presents to the [facility] ED on 05/24/19 with history of recent history of onset sudden nausea on Wednesday during the day, unclear specific time felt as though he needed to vomit prompting his to run to get a basin at which point he went to the restroom and had a syncopal events, short duration per report with no head trauma but following this reportedly had ongoing midsternal chest dull aching rated 1-2 out of 10 which lasted at least 2 hours with no specific diaphoresis, and dyspnea associated with complete resolution however later in the day he then had onset of cough not markedly productive and less severe than his spouse with no specific fevers or chills but extreme malaise, fatigue, arthralgias and myalgias prompting eventual presentation to the ED with his spouse who was admitted also. Work-up in the ED included T 98, heart rate 71, BP initially 99/46 with improvement BP 138/66, respiratory rate 19, 96% on room air, CBC with WC 4.8, hemoglobin 13.5, platelet 170 without market left shift identified, CMP with BUN/20 19/1.06, glucose 136, AST/ALT 68/61, troponin 0 0.387, EKG with sinus rhythm with no acute evidence of ischemia with stable previous changes, rapid influenza with positive influenza A status, chest x-ray with no acute cardiopulmonary findings. Past Medical History Past Medical History (Chronic Problems): Chronic Problems (Last Updated 01/03/19 @ 17:11 by Nai Borja) CAD in [place] artery (Chronic) Pure hypercholesterolemia (Chronic) Essential hypertension (Chronic) S/P CABG x 3 (Chronic ~07/21/16) CABG X 3 DODSON to LAD, SVG to OM, SVG to RCA 07/21/16 Atherosclerotic heart disease of [place] coronary artery without angina pectoris (Chronic) Penile ca (Chronic) DM (diabetes mellitus), type 2 (Chronic) Bladder cancer (Chronic) Hx of heart artery stent (Chronic) [facility] X 1 stent to LAD ; LH X 4 stents proximal RCA Murmur, cardiac (Chronic) Peripheral arterial disease (Chronic) PVD (peripheral vascular disease) (Chronic) Obesity (BMI 30.0-34.9) (Chronic) Prostate ca (Chronic) had a prostatectomy Medical History: Medical History (Last Updated 01/03/19 @ 17:11 by Nai Borja) Ventricular ectopy (Acute) I49.3 Pure hypercholesterolemia (Chronic) E78.00 Essential hypertension (Chronic) I10 Atherosclerotic heart disease of [place] coronary artery without angina pectoris (Chronic) I25.10 Penile ca (Chronic) DM (diabetes mellitus), type 2 (Chronic) E11.9 Bladder cancer (Chronic) Chest pain (Acute) R07.9 Murmur, cardiac (Chronic) R01.1 Peripheral arterial disease (Chronic) I73.9 Unstable angina (Acute) PVD (peripheral vascular disease) (Chronic) I73.9 Obesity (BMI 30.0-34.9) (Chronic) E66.9 Prostate ca (Chronic) C61 had a prostatectomy Atypical chest pain R07.89 History of left heart catheterization (LHC) Onset Date: ~01/03/19 Z98.890 LEFT MAIN: distal: eccentric: 25 % Stenosis; LEFT ANTERIOR DESCENDING ARTERY: PROX LAD: Previously placed stent has an instent 85 % restenosis, MID LAD: fills from competitive flow but predominantly from the DODSON graft with no angiographically significant appearing disease distal to the graft attachment; CIRCUMFLEX ARTERY: Mild luminal irregularities; OM 1: Proximal - 85 % Stenosis and also receives SVG graft flow; RIGHT CORONARY ARTERY: PROX RCA: Previously placed stent is patent; MID RCA: Previously placed stent is patent; DISTAL RCA: Mild luminal irregularities; RIGHT AV SEGMENT: small caliber vessel with eccentric 75 % Stenosis; GRAFTS: DODSON graft to the Mid LAD is patent; Saphenous Vein graft to the 1st OM is patent; Saphenous Vein graft to the RCA is patent; VALVE FINDINGS: Normal Aortic Valve function; Mitral Valve Calcification: Annular Calcification: Severe CAD (coronary artery disease) (Inactive) I25.10 HLD (hyperlipidemia) (Inactive) E78.5 HTN (hypertension) (Inactive) I10 Allergies atorvastatin [From Lipitor] Allergy (Verified 05/24/19 11:55) Rash codeine Allergy (Verified 05/24/19 11:55) Rash Home Medications: Ambulatory Orders Medication Instructions Recorded Amlodipine [Norvasc] 2.5 mg PO DAILY 05/24/19 Aspirin [Aspirin, Baby] 162 mg PO DAILY@1800 05/24/19 Ferrous Gluconate 324 mg PO BID 05/24/19 Furosemide [Lasix] 20 mg PO DAILY 05/24/19 Losartan Potassium [Cozaar] 50 mg PO DAILY 05/24/19 Metoprolol(XL)Succ [Toprol Xl 25 mg PO DAILY 05/24/19 (Beta Ricki)] Omeprazole [Prilosec] 20 mg PO DAILY 05/24/19 Pravastatin [Pravachol] 40 mg PO QHS 05/24/19 metFORMIN HCl [Glucophage] 1,000 mg PO BIDCM 05/24/19 Surgical History: Surgical History (Last Reviewed 04/22/19 @ 13:32 by Nai Borja) S/P CABG x 3 (Chronic) Onset Date: ~07/21/16 Z95.1 CABG X 3 DODSON to LAD, SVG to OM, SVG to RCA 07/21/16 Hx of heart artery stent (Chronic) Z95.5 LHC X 1 stent to LAD ; LHC X 4 stents proximal RCA Presence of coronary angioplasty implant and graft Z95.5 LHC X 1 stent to LAD ; LHC X 4 stents proximal RCA History of atherectomy Z98.890 December of 2013 R femoral History of prostatectomy Z90.79 LAPORASCOPIC RADICAL PROSTATECTOMY 2006 History of atherectomy (Inactive) Z98.890 December of 2013 R femoral History of three vessel coronary artery bypass (Inactive) Z95.1 S/P PTCA (percutaneous transluminal coronary angioplasty) (Inactive) Z98.61 Surgical History: angioplasty, - - Atherectomy right femoral artery in December 2013. Prostatectomy and resection of a penile cancer and bladder cancer. Coronary stents to the right coronary artery and left anterior descending artery. Psychiatric History: No pertinent psych hx Lives: Spouse/ Significant Other Smoking Status: Former smoker - Patient quit cigarette tobacco usage approximately 20 years prior and notes that he was only a social tobacco user previous to this. Tobacco Use: Non-smoker Alcohol: None Drugs: None - *Family History Paternal Family History: Family History (Last Reviewed 07/18/18 @ 13:32 by aNi Borja) Father CAD (coronary artery disease) Brother CAD (coronary artery disease) Mother CAD (coronary artery disease) History Items: Heart Disease, Stroke - His father of a hemorrhagic CVA. Sibling Family History: Family History (Last Reviewed 07/18/18 @ 13:32 by Nai Borja) Father CAD (coronary artery disease) Brother CAD (coronary artery disease) Mother CAD (coronary artery disease) History Items: - - He has 2 brothers who have coronary artery disease. Maternal Family History: Family History (Last Reviewed 07/18/18 @ 13:32 by Nai Borja) Father CAD (coronary artery disease) Brother CAD (coronary artery disease) Mother CAD (coronary artery disease) History Items: Cancer, Heart Disease Review of Systems Constitutional: Reports: Anorexia, Malaise, Weakness, Fatigue. Denies: Chills, Fever, Weight Change HEENT: Reports: Nasal Congestion, Sinus Congestion, Sinus Drainage, Sore Throat. Denies: Head Aches Cardiovascular: Reports: Chest Pain, Light Headedness, Syncope. Denies: Chest Pressure, Chest Tightness, Heaviness, Orthopnea, Palpitations Respiratory: Reports: Cough, Sputum production. Denies: Shortness of Breath, Shortness of breath at rest, Shortness of breath upon exertion Gastrointestinal: Reports: Nausea, Vomiting. Denies: Abdominal Pain Genitourinary: Denies: Dysuria Musculoskeletal: Reports: Joint Pain, Muscle pain. Denies: Joint Tenderness Skin: Denies: Rash, Wounds Neurological: Denies: Numbness, Tingling, Focal weakness Psychiatric: Denies: Anxiety, Depression, Homicidal Ideations, Suicidal Ideations Hematologic/ Lymphatic: Reports: Anemia, Easy Bruising, Easy Bleeding VTE Information - Inpt Only VTE Present on Admission: No VTE Mechan Device Prophylaxis: SCD's VTE Pharm Prophylaxis ordered?: Yes Patient Problems: Active and Suspected Problems (Last Updated 01/03/19 @ 17:11 by Nai Borja) Influenza (Acute) Cardiac enzymes elevated (Acute) Subjective: Seated upright in the bedside ED chair, fatigued appearance, no acute distress currently, denies any current chest pain, lightheadedness, dizziness or dyspnea. Objective: Physical Examination: General: awake, alert, oriented x 3 and cooperative, seated upright in the ED bedside chair, no acute distress, no current chest discomfort. Skin: normal color, turgor, no icterus, cyanosis. HEENT: AT/NC, EOMI, PERRLA, dry MM, no carotid bruits or JVD noted. Lungs: Diminished breath sounds bilateral bases, moderate effort, no rales, ronchi or wheezing. Heart: Regular rate and rhythm; no gallop, rub audible. Abdomen: soft, pes, NTTP, ND, normal BS, no HSM. Extremities: no cyanosis, clubbing, or edema. Neurological: patient awake, alert, oriented x 3; cognitive function intact; pupils equally reactive to light and accomodation; cranial nerves II-XII grossly normal, moving all 4 extremities, no focal deficits, strength moderately to severely global decrease secondary to acute presentation. Psychiatric: affect appears fatigued, no acute evidence of depressive or anxiety feelings. - Physical Exam Vitals/I&O's: Vital Signs Temp Pulse Resp BP Pulse Ox 98.0 F 60 16 138/66 H 96 05/24/19 11:56 05/24/19 15:26 05/24/19 15:26 05/24/19 14:10 05/24/19 15:26 Oxygen Delivery Method Room Air Weight: 215 lb Body Mass Index (BMI) 30.8 Microbiology Past 72 Hours 05/24/19 13:05 Mucosa - Nose Influenza Types A,B Direct FA (MILVIA) - Final Influenzae A Laboratory Results 05/24/19 12:50: WBC 4.8, RBC 4.72, Hgb 13.5, Hct 40.4, MCV 85.6, MCH 28.6, MCHC 33.4, RDW Std Deviation 38.5, RDW Coeff of [place]il 12.3, Plt Count 170, MPV 10.9, Immature Gran % (Auto) 0.200, Neut % (Auto) 65.9, Lymph % (Auto) 18.8 L, [place] % (Auto) 13.9 H, Eos % (Auto) 0.8, Baso % (Auto) 0.4, Absolute Neuts (auto) 3.2, Absolute Lymphs (auto) 0.91, Nucleated RBC % 0 05/24/19 12:50: Sodium 136, Potassium 3.6, Chloride 102, Carbon Dioxide 25.0, Anion Gap 9, BUN 19 H, Creatinine 1.06, Estim Creat Clear Calc 59.30, Est GFR (MDRD) Af Amer 87, Est GFR (MDRD) Non-Af 72, BUN/Creatinine Ratio 17.9, Glucose 136 H, Calcium 8.3 L, Total Bilirubin 0.60, AST 68 H, ALT 61, Alkaline Phosphatase 59, Troponin I 0.387 H, Total Protein 7.0, Albumin 3.5, Globulin 3.5, Albumin/Globulin Ratio 1.0 Assessment/Plan All Active Problems (Last Updated 01/03/19 @ 17:11 by Nai Borja) Influenza (Acute) Cardiac enzymes elevated (Acute) Chest pain (Acute) Dyspnea (Acute) Ventricular ectopy (Acute) Chest pain (Acute) Unstable angina (Acute) The patient is a 78 y/o M w/ PMHx: Hx Bladder, Penile and Prostate CA, Fe deficiency anemia, HTN, HLD, GERD, Diabetes mellitus type II, Obesity, CAD s/p CABG x 3 and PCI x ~ 4, PAD/PVD s/p RLE stent who presents to the [facility] ED on 05/24/19 with history of recent history of onset sudden nausea on Wednesday during the day, unclear specific time felt as though he needed to vomit prompting his to run to get a basin at which point he went to the restroom and had a syncopal events, short duration per report with no head trauma but following this reportedly had ongoing midsternal chest dull aching rated 1-2 out of 10 which lasted at least 2 hours with no specific diaphoresis, and dyspnea associated with complete resolution however later in the day he then had onset of cough not markedly productive and less severe than his spouse with no specific fevers or chills but extreme malaise, fatigue, arthralgias and myalgias. 1. General Malaise, Cough, General Debility secondary to Influenza A Viral Syndrome: CXR in the ED w/ no acute cardiopulmonary findings. Admission CBC w/ WBC 4.8 with no market left shift. Influenza a positive on rapid influenza testing. Will admit to PCU given concurrent as noted #2, maintain on oxygen with wean as tolerated, initiate Tamiflu, PRN albuterol, HOB, IS parameters. 2. Chest Pain, syncopal event w/ Suspected NSTEMI versus Demand Ischemia secondary to #1: EKG in ED w/ sinus rhythm with stable change with no acute evidence of ischemia, CXR w/ no acute cardiopulmonary findings. Trop elevated, 0.387. Will maintain on a monitored bed, continue serial cardiac enzymes and EKGs. Obtain magnesium level upon admission. Start therapeutic lovenox until cardiac enzyme trending delineated. Continue medical management w/ asa, BB, statin w/ AM FLP. 01/04/20 Cardiac catheterization with normal LV end-diastolic pressure, normal LV size, wall motion and systolic function, EF 55%, [place] multivessel CAD, DODSON to LAD patent, SVG to OM1 patent, SVG to RCA patent, mitral valve annular calcification with severe annular calcification, 01/04/20 ECHO w/ normal LV systolic function, EF 65%, postoperative septal motion, moderate concentric LVH, mildly enlarged LA, trivial MVI, trivial TBI, trivial AMAURI, trivial PVI. Will obtain repeat echocardiogram to assure no pericardial effusion per discussion with Dr. Guidry. Cardiology, Dr. Moncada who is familiar with the patient will be consulted. ASA, NG. 3. Diabetes mellitus type II: Hold oral home regimen, ADA diet, accu checks w/ ISS. 4. PAD/PVD: Status post right lower extremity right femoral arthrectomy in 2013, maintain on aspirin, statin, BP regimen, diabetic regimen. 5. Hypertension: Continue home regimen including Norvasc, Lasix, losartan, metoprolol, PRN hydralazine. 6. Hyperlipidemia: Continue home statin regimen. AM FLP. 7. Iron deficiency anemia: Admission hemoglobin 13.5, stable, continue iron supplementation. 8. History of Bladder, Penile and Prostate cancer: Status post surgical intervention, including radical prostatectomy in 2006 in remission. 9. GERD: Continue home PPI. 10. DVT prophylaxis: SCDs, Lovenox therapeutically pending enzyme trending. 11. CODE status: Patient KARY is his and living will is not currently in place he notes. Discussed CODE status at length including difference between FULL code, DNR-CCA and DNR-CC status. Following discussions about the differences in these status, requested full CODE STATUS. Advanced Care Planning Face to Face Time: 16 minutes. Code Visit Inpatient E&M: 10899 Init Hosp L3 Procedures: 91556 Advncd Care Plan 30 Min
--- NOTE | 2019-05-24 16:01 | NURSING ---
PCU WHITE ELEVATED TROP, INFLUENZA
--- NOTE | 2019-05-24 16:50 | EKG12_ITS ---
Test Reason : AM EKG Blood Pressure : / mmHG Vent. Rate : 052 BPM Atrial Rate : 052 BPM P-R Int : 186 ms QRS Dur : 106 ms QT Int : 482 ms P-R-T Axes : -11 -28 010 degrees QTc Int : 448 ms Sinus bradycardia Otherwise normal ECG When compared with ECG of 24-MAY-2019 17:09, MANUAL COMPARISON REQUIRED, DATA IS UNCONFIRMED Confirmed by TEMO AN, PRATIK ([id number]), editorial assistant ALESSANDRO AGUAYO ([id number]) on 05/29/2019 8:58:28 AM Referred By: CHACHO Confirmed By:LAURA PLASCENCIA MD
--- NOTE | 2019-05-24 16:50 | ECHOCS_ITS ---
Reason For Study: CHEST PAIN Procedure This was a 2D Doppler, Color Flow transthoracic echocardiogram. The study was technically difficult. Contrast injection was performed. Exam performed portable in patient room. Left Ventricle Normal LV size. Left ventricular systolic function is normal. The estimated ejection fraction is 60 %. Post operative septal motion. No evidence for diastolic dysfunction. No regional wall motion abnormalities noted. Right Ventricle Normal RV size. Normal systolic function. Atria The left atrium is mildly enlarged. Normal right atrium. No doppler evidence for ASD. Mitral Valve There is severe mitral annular calcification. Extension of the mitral annular calcification onto the mitral valve leaflets. Trivial mitral valve insufficiency. Tricuspid Valve Normal tricuspid valve. Trivial tricuspid valve insufficiency. Unable to estimate RV systolic pressure/pulmonary artery pressure due to technically difficult study. Aortic Valve Trisinus/trileaflet aortic valve. Mild focal aortic valve calcification. Trivial aortic valve insufficiency. Pulmonic Valve The pulmonic valve is not well visualized. Great Vessels Normal sized aortic root. Calcified aortic root. Pericardium/Pleural No pericardial effusion. Medication Diluted definity 3ml given slow IV push to enhance endocardial definition. MMode/2D Measurements & Calculations LVIDd: 4.9 cm IVSd: 1.2 cm Ao root diam: 3.6 cm LVIDs: 3.4 cm LVPWd: 1.2 cm RVDd: 4.1 cm FS: 30.9 % LAV(MOD-bp): 72.7 ml LVAd ap4: 32.5 cm2 SV(MOD-sp4): 62.4 ml LAV(MOD-bp) Indexed: 33.8 ml/m2 EDV(MOD-sp4): 109.4 ml LAV(MOD-sp2): 72.1 ml EDV(sp4-el): 114.9 ml LAV(MOD-sp4): 63.8 ml LVAs ap4: 19.6 cm2 ESV(MOD-sp4): 47.1 ml ESV(sp4-el): 49.4 ml EF(MOD-sp4): 57.0 % EF(sp4-el): 57.0 % SV(sp4-el): 65.5 ml LA A4 area: 20.5 cm2 LA dimension(2D): 4.5 cm RA A4 area: 16.2 cm2 Time Measurements MV dec time: 0.28 sec Doppler Measurements & Calculations MV E max ciaran: 70.2 cm/sec Lat Peak E' Ciaran: 10.6 cm/sec Med Peak E' Ciaran: 6.0 cm/sec MV A max ciaran: 108.9 cm/sec E/E' lat: 6.6 E/E' med: 11.6 MV E/A: 0.64 Ao V2 max: 195.6 cm/sec LV V1 max: 100.1 cm/sec PA V2 max: 90.3 cm/sec Ao max P.3 mmHg LV V1 max P.0 mmHg Interpretation Summary Left ventricular systolic function is normal. The estimated ejection fraction is 60 %. Post operative septal motion. The left atrium is mildly enlarged. There is severe mitral annular calcification. Trivial mitral valve insufficiency. Trivial tricuspid valve insufficiency. Mild focal aortic valve calcification. Trivial aortic valve insufficiency. Calcified aortic root. Unable to estimate RV systolic pressure/pulmonary artery pressure due to technically difficult study. No evidence for diastolic dysfunction. Ordering Physician: Syeda Huggins Referring Physician: MARIANO AMATO Performed By: Megan Pardo RDCS
[2019-05-24 17:14] LABS: International Normalized Ratio 1.1; Prothrombin Time (Protime)PT. 13.6 SECONDS (11.7-14.9)
[2019-05-24 17:15] LABS: Partial Thromboplast Time 30.9 Seconds (24.1-36.2)
[2019-05-24] MEDS: Enoxaparin 100 MG/ML Syringe SC (18:18)
[2019-05-24] MEDS: 0.9% Normal Saline 1,000 ML 100 ML IV (18:19)
[2019-05-24] MEDS: Oseltamivir Phosphate 75 MG Capsule PO (18:22)
[2019-05-24] MEDS: Aspirin 81 MG TAB.CHEW 162 MG PO (18:22)
[2019-05-24 18:26] LABS: Magnesium 1.8 mg/dL (1.6-2.6)
--- NOTE | 2019-05-24 19:52 | PCM.CONS.C ---
Problem List (1) NSTEMI (non-ST elevated myocardial infarction) Status: Acute (2) CAD in [place] artery Status: Chronic (3) Hx of heart artery stent Status: Chronic Comment: [facility] X 1 stent to LAD ; [facility] X 4 stents proximal RCA (4) S/P CABG x 3 Status: Chronic Comment: CABG X 3 DODSON to LAD, SVG to OM, SVG to RCA 07/21/16 (5) Ventricular ectopy Status: Acute (6) Pure hypercholesterolemia Status: Chronic (7) Essential hypertension Status: Chronic (8) Syncope Status: Acute (9) PVD (peripheral vascular disease) Status: Chronic (10) Influenza Status: Acute Reason for Consult Date of Consultation: 05/24/19 History of Present Illness: The patient is a 78 year old white male with a past medical history of underlying CAD, PCI, CABG, ventricular ectopy, hyperlipidemia, hypertension, who is referred for evaluation of abnormal cardiac enzymes compatible with a non-ST segment elevation WV, syncope, PVD, and the influenza virus. The patient states he had been in his usual state of health until this past Wednesday. At that time he felt ill. He stated he felt as if he was going to have emesis but did not. However during this time he states he lost consciousness. He notes later on he felt chest discomfort. This was precordial chest discomfort. He was not sure when he lost consciousness whether he struck his chest or not. He notes this discomfort lasted for several hours and then abated. He did not necessarily note radiation to the neck, jaw, shoulders, or upper extremities. He does not recall having any recurrent episodes of nausea or emesis. There was no acute respiratory changes. He states he did not have any recurrent syncopal events. At the same time he does not recall having any episodes of fever, cough, sputum production, or diarrhea. He notes that he was feeling better overall. However he brought his spouse to the hospital today to be evaluated for concerns of progressive shortness of breath and dyspnea. During her evaluation he was subsequently evaluated based upon his history and found to have abnormal cardiac enzymes concerning for a recent non-ST segment elevation WV. Thus he was brought into the hospital for further evaluation and care. He states at the moment he appears to be resting comfortably. He has had repeat cardiac enzymes which are declining. An ECG demonstrated sinus rhythm with poor R wave progression with no acute changes. His chest x-ray demonstrated postoperative changes but no other acute changes. He has undergone noninvasive and invasive evaluation in the past. Based upon his previous studies, which are noted below, he has had overall preserved LV systolic function and findings of underlying [place] vessel CAD but patent bypass grafts. He is also been evaluated from a noncardiac standpoint. He has been diagnosed with the influenza virus. [] Past Medical History Allergies/Adverse Reactions: Allergies atorvastatin [From Lipitor] Allergy (Verified 05/24/19 11:55) Rash codeine Allergy (Verified 05/24/19 11:55) Rash Home Medications: Ambulatory Orders Medication Instructions Recorded Amlodipine [Norvasc] 2.5 mg PO DAILY 05/24/19 Aspirin [Aspirin, Baby] 162 mg PO DAILY@1800 05/24/19 Ferrous Gluconate 324 mg PO BID 05/24/19 Furosemide [Lasix] 20 mg PO DAILY 05/24/19 Losartan Potassium [Cozaar] 50 mg PO DAILY 05/24/19 Metoprolol(XL)Succ [Toprol Xl 25 mg PO DAILY 05/24/19 (Beta Ricki)] Omeprazole [Prilosec] 20 mg PO DAILY 05/24/19 Pravastatin [Pravachol] 40 mg PO QHS 05/24/19 metFORMIN HCl [Glucophage] 1,000 mg PO BIDCM 05/24/19 Past Medical History (Chronic Problems): Chronic Problems (Last Updated 01/03/19 @ 17:11 by Nai Borja) CAD in [place] artery (Chronic) Pure hypercholesterolemia (Chronic) Essential hypertension (Chronic) S/P CABG x 3 (Chronic ~07/21/16) CABG X 3 DODSON to LAD, SVG to OM, SVG to RCA 07/21/16 Atherosclerotic heart disease of [place] coronary artery without angina pectoris (Chronic) Penile ca (Chronic) DM (diabetes mellitus), type 2 (Chronic) Bladder cancer (Chronic) Hx of heart artery stent (Chronic) [facility] X 1 stent to LAD ; [facility] X 4 stents proximal RCA Murmur, cardiac (Chronic) Peripheral arterial disease (Chronic) PVD (peripheral vascular disease) (Chronic) Obesity (BMI 30.0-34.9) (Chronic) Prostate ca (Chronic) had a prostatectomy Surgical History: angioplasty, - - Atherectomy right femoral artery in December 2013. Prostatectomy and resection of a penile cancer and bladder cancer. Coronary stents to the right coronary artery and left anterior descending artery. Psychiatric History: No pertinent psych hx - *Family History Maternal Family History: Family History (Last Reviewed 07/18/18 @ 13:32 by Nai Borja) Father CAD (coronary artery disease) Brother CAD (coronary artery disease) Mother CAD (coronary artery disease) History Items: Cancer, Heart Disease Paternal Family History: Family History (Last Reviewed 07/18/18 @ 13:32 by Nai Borja) Father CAD (coronary artery disease) Brother CAD (coronary artery disease) Mother CAD (coronary artery disease) History Items: Heart Disease, Stroke - His father of a hemorrhagic CVA. Sibling Family History: Family History (Last Reviewed 07/18/18 @ 13:32 by Nai Borja) Father CAD (coronary artery disease) Brother CAD (coronary artery disease) Mother CAD (coronary artery disease) History Items: - - He has 2 brothers who have coronary artery disease. Lives: Spouse/ Significant Other Smoking Status: Never smoker Tobacco Use: Non-smoker Alcohol: None Drugs: None Review of Systems - Review of Systems General: Denies: Fever, Night Sweats, Fatigue Cardiovascular: Reports: Chest Discomfort, Chest Discomfort at Rest, Syncope. Denies: Shortness of Breath, Orthopnea, PND, Peripheral Edema, Palpitations, Lightheadedness, Dizziness, Near Syncope Respiratory: Denies: Cough, Sputum Production, Hemoptysis Gastrointestinal: Denies: Hematemesis, Hematochezia, Melena Genitourinary: Denies: Dysuria, Hematuria Skin: Denies: Rash Subjectve: This is a 78-year-old white male who appears to be resting comfortably at the moment in no acute distress. Objective: Vital Signs Temp Pulse Resp BP Pulse Ox 98.2 F 77 16 118/69 95 05/24/19 17:35 05/24/19 19:41 05/24/19 17:35 05/24/19 17:35 05/24/19 17:35 Oxygen Delivery Method Room Air Weight: 214 lb 11.684 oz Body Mass Index (BMI) 30.8 General: Awake, Alert, Oriented x 3, Cooperative, No Acute Distress HEENT: Atraumatic, Normocephalic, PERRL, EOMI, Sclera Non Icteric Oral: Moist Mucosa Neck: Supple, Good ROM, No JVD Lungs: Clear to auscultation Cardiovascular: Regular Rhythm, Normal S1, Normal S2 Murmur Murmur: Grade 2/6, Mid Systolic, LLSB, LVOT, Sternal Notch Vascular: No Carotid Bruits Abdomen: Bowel Sounds Present, Soft, Non Tender Extremities: No Cyanosis, No Clubbing, No edema Neurological: No Focal Motor or Sensory Deficit Psych/Mental Status: Appropriate 05/24/19 12:50: WBC 4.8, RBC 4.72, Hgb 13.5, Hct 40.4, MCV 85.6, MCH 28.6, MCHC 33.4, Plt Count 170, MPV 10.9, Immature Gran % (Auto) 0.200, Neut % (Auto) 65.9, Lymph % (Auto) 18.8 L, Garvin % (Auto) 13.9 H, Eos % (Auto) 0.8, Baso % (Auto) 0.4, Absolute Neuts (auto) 3.2, Nucleated RBC % 0 05/24/19 12:50: Sodium 136, Potassium 3.6, Chloride 102, Carbon Dioxide 25.0, Anion Gap 9, BUN 19 H, Creatinine 1.06, Est GFR (MDRD) Af Amer 87, Est GFR (MDRD) Non-Af 72, BUN/Creatinine Ratio 17.9, Glucose 136 H, Calcium 8.3 L, Total Bilirubin 0.60, Troponin I 0.387 H 05/24/19 12:50: PT 13.6, INR 1.1, APTT 30.9 05/24/19 17:38: Magnesium 1.8, Troponin I 0.285 H Rhythm: Sinus rhythm EKG: Sinus rhythm; poor R wave progression ECHO: 01-03-2019 Interpretation Summary The study was technically difficult. Contrast injection was performed. Left ventricular systolic function is normal. The estimated ejection fraction is 65 %. Post operative septal motion. Moderate concentric left ventricular hypertrophy. The left atrium is mildly enlarged. Extension of the mitral annular calcification onto the bellies of the posterior mitral valve leaflet. Trivial mitral valve insufficiency. Trivial tricuspid valve insufficiency. Mild focal aortic valve calcification. Trivial aortic valve insufficiency. Trivial pulmonic valve insufficiency. Unable to estimate RV systolic pressure/pulmonary artery pressure due to technically difficult study. Diastolic function is indeterminate. Bubble contrast study negative for right to left interatrial shunt. Stress Test: 01-03-2019 Stress Test Report Date: 01-03-19 Procedure: Pharmacologic stress nuclear imaging study Indications: This of breath/dyspnea; CAD; PCI; CABG Consent: Per the patient Procedure: The patient underwent pharmacologic (Regadenoson) evaluation with a peak heart rate of 81 beats per minute (57 %predicted maximal heart rate) and a peak blood pressure of 142/70 mmHg. The baseline ECG demonstrated sinus bradycardia; nonspecific T wave abnormality. The peak pharmacologic ECG demonstrated no obvious ECG changes, however, during recovery there was notation of the appearance of somewhat more prominent ST segment depression (horizontal) in leads II, III, and aVF. There were no cardiac dysrhythmias pretest, during pharmacologic infusion, or recovery. There was no complaint of chest discomfort during pharmacologic infusion or recovery. The examination was discontinued secondary to completion of protocol. Impression: 1. Pharmacologic (Regadenoson) evaluation 2. Peak pharmacologic ECG with no obvious ECG changes, however, during recovery was notation of the appearance of somewhat more prominent ST segment depression (horizontal) in leads II, III, and aVF. 3. There were no cardiac dysrhythmias pretest, during pharmacologic infusion, or recovery. 4. Nuclear images pending Myocardial perfusion imaging study: Technique: The patient was injected with 15.0 millicuries of technetium 99m Cardiolite and subsequently rest SPECT Cardiolite nuclear imaging was obtained in the horizontal long, vertical long, and short axis views. The patient underwent pharmacologic (Regadenoson) evaluation with a peak heart rate of 81 beats per minute (57 % percent predicted maximal heart rate) and a peak blood pressure of 142/70 mmHg. The patient was injected with 44.0 millicuries of technetium 99m Cardiolite and subsequently stress SPECT Cardiolite nuclear imaging was obtained in the horizontal long, vertical long, and short axis views. A gated Cardiolite study at peak stress was obtained. Interpretation: Rest and stress SPECT Cardiolite nuclear imaging status post realignment, normalization, and attenuation correction demonstrate relative uniform tracer uptake and myocardial perfusion appearing within normal limits. There is end systolic thickening and brightening. The gated Cardiolite study demonstrates myocardial thickening and inward wall motion. The reported LVEF is 71 %. Impression: 1. Rest and stress SPECT Cardiolite nuclear imaging demonstrate relative uniform tracer uptake and myocardial perfusion appearing within normal limits. 2. The gated Cardiolite study reports an LVEF of 71 %. Cardiac Cath: 01-03-2019 CONCLUSIONS Normal Left Ventricular End Diastolic Pressure Normal LV size, wall motion,and systolic function LVEF: by LV gram 55 % [place] Multivessel CAD DODSON to LAD: patent SVG to OM1: patent SVG to RCA: patent Mitral Valve Annular Calcification Severe annular calcification RECOMMENDATIONS Risk factor modification Medical therapy CORONARY ANGIOGRAPHY DOMINANCE: Right Dominant LEFT HEART ASSESSMENT Left Ventricular Ejection Fraction: by LV Gram 55 % Normal LV wall motion Normal Left Ventricular End Diastolic Pressure LVEDP: 8 mmHg LEFT MAIN: distal: eccentric: 25 % Stenosis LEFT ANTERIOR DESCENDING ARTERY: PROX LAD: Previously placed stent has an instent 85 % restenosis MID LAD: fills from competitive flow but predominantly from the DODSON graft with no angiographically significant appearing disease distal to the graft attachment CIRCUMFLEX ARTERY: Mild luminal irregularities OM 1: Proximal - 85 % Stenosis and also receives SVG graft flow RIGHT CORONARY ARTERY: PROX RCA: Previously placed stent is patent MID RCA: Previously placed stent is patent DISTAL RCA: Mild luminal irregularities RIGHT AV SEGMENT: small caliber vessel with eccentric 75 % Stenosis GRAFTS: DODSON graft to the Mid LAD is patent Saphenous Vein graft to the 1st OM is patent Saphenous Vein graft to the RCA is patent VALVE FINDINGS: Normal Aortic Valve function Mitral Valve Calcification: Annular Calcification: Severe AORTIC ROOT: Angiographically normal CAB07-21-16: [facility] DODSON to the LAD, SVG to the OM, and SVG to the posterior lateral branch of the RCA Holter monitor: 10-14-16 Sinus rhythm; rare PACs; rare PVCs CXR: Preliminary evaluation: Post open heart surgery changes: No acute cardiopulmonary disease process appreciated: Please see official report Assessment/Plan 1. Non-ST segment elevation [place] There is concern the patient may have experienced a recent non-ST segment elevation [place]. This is based upon a combination of his symptoms and his abnormal cardiac enzymes which are declining. His ECG is demonstrated no new acute changes. It is unclear whether this event may have been a primary cardiovascular event/CAD event versus a secondary type event brought on by noncardiac issues such as potentially his influenza virus. At the present time he will continue to be monitored. He will continue medical management as deemed appropriate. However based upon his symptoms and his objective findings with his abnormal cardiac enzymes superimposed upon his previous cardiovascular diagnosis it was felt appropriate that he be considered for repeat evaluation with diagnostic cardiac catheterization. The procedure and risks of been discussed with him. He is agreeable to this approach. 2. CAD status post PCI and CABG The patient has undergone extensive revascularization in the past. He has had follow-up noninvasive and invasive studies. However his clinical course is now changed based upon his symptoms and his objective findings. Thus he will continue be monitored and continue medical management and continue evaluation as noted. 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 He will continue be monitored for any concerns. He will continue his beta-ricki therapy. 4. Hyperlipidemia He will continue risk factor evaluation and care. 5. Hypertension He will continue to have his blood pressure monitored. His medicines can be adjusted as needed. 6. Syncope He had a syncopal event. It is unclear whether this was a situational vasovagal type event brought on by his attempt at nausea/emesis versus was this related to an underlying cardiovascular event brought on by CAD/myocardial ischemia and/or some form of cardiac dysrhythmia, etc. At the moment he is being monitored. His cardiac rhythm has remained sinus. His ECG is demonstrated no acute findings. He will continue to be monitored. We will continue medical therapy. He will continue his cardiovascular evaluation as noted. 7. Peripheral vascular disease He has a history of peripheral vascular disease. The details are unknown at this time. However he will continue evaluation care as deemed appropriate over time. 8. Influenza virus He has been deemed positive for the influenza virus. He will continue to be monitored. He will continue isolation protocol as deemed appropriate. He will be evaluated and cared for by internal medicine. Comment: The patient's case has been discussed and reviewed with the patient and Dr. Huggins of the [facility] staff.
[2019-05-24] MEDS: Clopidogrel Bisulfate 300 MG Tablet PO (20:42)
[2019-05-24] MEDS: Pravastatin 40 MG Tablet PO (20:42)
[2019-05-24 22:30] LABS: Bedside Glucose 159 mg/dL (70-110)
[2019-05-25] VITALS (21 sets, daily range): BP systolic 113–155; BP diastolic 51–79; PULSE 46–65; RESP 16–24; TEMP 36.3–37.3; O2SAT 92–99
--- NOTE | 2019-05-25 05:00 | EKG12_ITS ---
Test Reason : Blood Pressure : / mmHG Vent. Rate : 062 BPM Atrial Rate : 062 BPM P-R Int : 154 ms QRS Dur : 110 ms QT Int : 442 ms P-R-T Axes : 000 -36 -11 degrees QTc Int : 448 ms Normal sinus rhythm Left axis deviation Abnormal ECG When compared with ECG of 24-MAY-2019 13:04, MANUAL COMPARISON REQUIRED, DATA IS UNCONFIRMED Confirmed by TEMO AN, PRATIK ([id number]), editor house organ ALESSANDRO AGUAYO ([id number]) on 05/29/2019 8:59:09 AM Referred By: FLORIAN Confirmed By:LAURA PLASCENCIA MD
[2019-05-25] MEDS: 0.9% Saline Lock 10 ML Syringe IV (05:23)
[2019-05-25] MEDS: Clopidogrel Bisulfate 75 MG Tablet PO (05:23)
[2019-05-25] MEDS: amLODIPine 2.5 MG Tablet PO (05:23)
[2019-05-25] MEDS: Losartan Potassium 50 MG Tablet PO (05:23)
[2019-05-25] MEDS: Metoprolol(XL)Succ 25 MG Tablet PO (05:23)
[2019-05-25] MEDS: 0.9% Normal Saline 1,000 ML 15 ML IV (05:25)
[2019-05-25 05:51] LABS: Absolute Neutrophil Count 2.4 X10^3/uL (2.0-7.7); Basophil# 0.01 X10^3/uL; Basophil% 0.3 % (0-1); Eosinophil# 0.03 X10^3/uL; Eosinophils% 0.8 % (0-5); Hematocrit 37.5 % (40-54); Hemoglobin 12.6 g/dL (13.0-16.5); Mean Corp Hgb Conc 33.6 g/dL (32-36); Mean Corpuscular Hgb 28.8 pg (27.0-32.0); Mean Corpuscular Volume 85.6 fL (80-94); Mean Platelet Vol. 10.2 fl (6.2-12.0); Monocyte# 0.56 X10^3/uL; Monocyte% 15.2 % (0-10); NRBC Flagged by Analyzer 0 % (0-5); Neutrophil # 2.38 X10^3/uL (2.7-7.7); Neutrophil % 64.4 % (47-70); Platelet Count 136 K/mm3 (150-450); RBC Distribution Width CV 12.3 % (11.6-14.6); RBC Distribution Width SD 38.4 fl (35.1-43.9); Red Blood Count 4.38 M/mm3 (4.6-6.2); White Blood Count 3.7 K/mm3 (4.4-11.0)
[2019-05-25 06:16] LABS: Anion Gap 7 (5-15); BUN 16 mg/dL (7-18); BUN/Creat Ratio 17.8 RATIO (10-20); Calcium,Total 8.1 mg/dL (8.5-10.1); Chloride 102 mmol/L (98-107); Cholesterol 127 mg/dL (200); EST Glomerular Filtration Rate 87 mL/min (>60); Est Glom Filt Rate - Afr Amer 105 mL/min (>60); Estimated Creatinine Clearance 69.85 ml/min; Glucose 134 mg/dL (74-106); High Density Lipoprotein 33 mg/dL; Potassium 3.6 mmol/L (3.5-5.1); Sodium Level 135 mmol/L (136-145); Triglycerides 133 mg/dL; Very Low Density Lipoprotein 27 mg/dL (5-40)
[2019-05-25 06:40] LABS: Bedside Glucose 137 mg/dL (70-110)
--- NOTE | 2019-05-25 08:59 | CL.D_ITS ---
Patient Name: RM CHAU Study Date: 05/25/2019 Performing: Ankit Moncada MD Ht: 70 inches 178 cm : 1940 Wt: 214.1 lbs 97 kg Age: 78 Gender: male BSA: 2.15 PROCEDURE(S) PERFORMED [id number]/COR/LV/CABG CLINICAL PROFILE AND INDICATIONS Indications: Suspected CAD, Syncope Heart Failure: None Stress/Imaging Stress/Image Study Performed: No Angina Classification Anginal Classification w/in 2 Weeks: CCS III CAD Presentations: Non-STEMI. CONCLUSIONS Normal Left Ventricular End Diastolic Pressure Normal LV size, wall motion,and systolic function LVEF: by LV gram 60 % [place] Multivessel CAD DODSON to LAD: patent SVG to OM1: patent SVG to RCA: patent Mitral Valve Annular Calcification Severe annular calcification RECOMMENDATIONS Risk factor modification Medical therapy DESCRIPTION OF PROCEDURE The patient arrived to the procedure lab. The risks and benefits of the procedure as well as a full d escription of our services here and current unavailability of surgical backup were fully explained to the patient and/or their significant other prior to the catheterization. The Timeout was completed, verifying the correct patient and procedure. The patient's procedural site was prepped and draped in the usual fashion. Local anesthetic was given subcutaneously to right groin region with Lidocaine 2%. Using a modified Seldinger technique, arterial access was obtained via the right femoral artery, a 4 Fr sheath was inserted Left Coronary Artery selective angiography was performed in multiple views us ing a 4 Fr. JL5 catheter. Saphenous Vein graft to the OM 1 selective angiography was performed in mul tiple views using a 4 Fr. JL5 catheter. Right Coronary Artery selective angiography was then performe d in multiple views using a 4 Fr. JR4 catheter. Saphenous Vein graft to the RCA selective angiography was performed in multiple views using a 4 Fr. JR4 catheter. Left internal mammary artery graft to the LAD selective angiography was performed in multiple views using a 4 Fr. IM catheter. Lef t Ventriculography was performed in CORREA projection using a 4 Fr. Pigtail catheter. LV to AO pullback pressures were then recorded.The arterial sheath was pulled and manual compression applied until hemo stasis is achieved. CORONARY ANGIOGRAPHY DOMINANCE: Right Dominant LEFT HEART ASSESSMENT Left Ventricular Ejection Fraction: by LV Gram 60 % Normal LV wall motion Normal Left Ventricular End Diastolic Pressure LVEDP: 12 mmHg LEFT MAIN: distal: eccentric: 25 % Stenosis LEFT ANTERIOR DESCENDING ARTERY: PROX LAD: Previously placed stent has an instent 85 % restenosis MID LAD: fills from competitive flow but predominantly from DODSON graft flow with no angiographically significant appearing disease distal to the graft attachment CIRCUMFLEX ARTERY: Mild luminal irregularities OM 1: Proximal - 85 % Stenosis and fills predominantly from SVG graft flow with no angiographically s ignificant appearing disease distal to the graft attachment RIGHT CORONARY ARTERY: PROX RCA: Previously placed stent is patent, eccentric: 25 - 50 % Stenosis MID RCA: Previously placed stent is patent DISTAL RCA: Mild luminal irregularities RIGHT AV SEGMENT: small caliber vessel with eccentic 75 % Stenosis GRAFTS: DODSON graft to the Mid LAD is patent Saphenous Vein graft to the 1st OM is patent Saphenous Vein graft to the RCA is patent VALVE FINDINGS: Mitral Valve Annular Calcification Severe AORTIC ROOT: Angiographically normal COMPLICATIONS No Complications PROCEDURE MEDICATIONS Versed 1 mg IV Versed 1 mg IV Baby Aspirin (81mg) 1 Tabs PO @ 05/25/2019 07:24:58 SUMMARY OF HEMODYNAMIC DATA Time AIR REST ECG 07:21:59 AO 101/61 (79) SA 07:50:37 LV 141/-12, 13 08:06:51 LV 144/-13, 12 08:06:58 LV 130/-8, 16 08:07:52 LV 130/-8, 21 08:07:58 LVp 131/-10, 19 08:08:04 AOp 139/53 (82) 08:08:09 Signed By Ankit Moncada MD On 05/25/2019 08:58:25 Ankit Moncada MD
--- NOTE | 2019-05-25 08:59 | PCM.PN.CARD ---
Subjectve: The patient has continued with with his cough. He has denied recurrent chest discomfort. There is been no report of recurrent near syncope or syncope. Objective: Vital Signs Temp Pulse Resp BP Pulse Ox 97.8 F 50 L 16 120/54 L 95 05/25/19 05:15 05/25/19 06:52 05/25/19 05:15 05/25/19 05:15 05/25/19 05:15 Oxygen Delivery Method Room Air Weight: 214 lb 11.684 oz Body Mass Index (BMI) 30.8 Intake and Output for Last 24 Hours 05/23/19 05/24/19 05/25/19 23:59 23:59 23:59 Intake Total 431.67 / 791.67 796.92 / 796.92 Balance 431.67 / 791.67 796.92 / 796.92 General: Awake, Alert, Oriented x 3, Cooperative, No Acute Distress, Obese HEENT: Atraumatic, Normocephalic, PERRL, EOMI, Sclera Non Icteric Oral: Moist Mucosa Neck: Supple, Good ROM, No JVD Lungs: - - No obvious rales or rhonchi Cardiovascular: Regular Rhythm, Normal S1, Normal S2 Murmur Murmur: Grade 2/6, Mid Systolic, LLSB, LVOT, Sternal Notch Vascular: Normal Femoral Pulses Abdomen: Bowel Sounds Present, Soft, Non Tender Extremities: No edema Neurological: No Focal Motor or Sensory Deficit Psych/Mental Status: Appropriate 05/24/19 12:50: WBC 4.8, RBC 4.72, Hgb 13.5, Hct 40.4, MCV 85.6, MCH 28.6, MCHC 33.4, Plt Count 170, MPV 10.9, Immature Gran % (Auto) 0.200, Neut % (Auto) 65.9, Lymph % (Auto) 18.8 L, [place] % (Auto) 13.9 H, Eos % (Auto) 0.8, Baso % (Auto) 0.4, Absolute Neuts (auto) 3.2, Nucleated RBC % 0 05/24/19 12:50: Sodium 136, Potassium 3.6, Chloride 102, Carbon Dioxide 25.0, Anion Gap 9, BUN 19 H, Creatinine 1.06, Est GFR (MDRD) Af Amer 87, Est GFR (MDRD) Non-Af 72, BUN/Creatinine Ratio 17.9, Glucose 136 H, Calcium 8.3 L, Total Bilirubin 0.60, Troponin I 0.387 H 05/24/19 12:50: PT 13.6, INR 1.1, APTT 30.9 05/24/19 17:38: Magnesium 1.8, Troponin I 0.285 H 05/24/19 20:35: Troponin I 0.273 H 05/25/19 05:34: WBC 3.7 L, RBC 4.38 L, Hgb 12.6 L, Hct 37.5 L, MCV 85.6, MCH 28.8, MCHC 33.6, Plt Count 136 L, MPV 10.2, Immature Gran % (Auto) 0.300, Neut % (Auto) 64.4, Lymph % (Auto) 19.0, [place] % (Auto) 15.2 H, Eos % (Auto) 0.8, Baso % (Auto) 0.3, Absolute Neuts (auto) 2.4, Nucleated RBC % 0 05/25/19 05:34: Sodium 135 L, Potassium 3.6, Chloride 102, Carbon Dioxide 26.0, Anion Gap 7, BUN 16, Creatinine 0.90, Est GFR (MDRD) Af Amer 105, Est GFR (MDRD) Non-Af 87, BUN/Creatinine Ratio 17.8, Glucose 134 H, Calcium 8.1 L, Triglycerides 133, Cholesterol 127, LDL Cholesterol 67, VLDL Cholesterol 27, HDL Cholesterol 33 L Rhythm: Sinus rhythm EKG: Minus rhythm; no acute ECG changes Cardiac Cath: CONCLUSIONS Normal Left Ventricular End Diastolic Pressure Normal LV size, wall motion,and systolic function LVEF: by LV gram 60 % [place] Multivessel CAD DODSON to LAD: patent SVG to OM1: patent SVG to RCA: patent Mitral Valve Annular Calcification Severe annular calcification RECOMMENDATIONS Risk factor modification Medical therapy CORONARY ANGIOGRAPHY DOMINANCE: Right Dominant LEFT HEART ASSESSMENT Left Ventricular Ejection Fraction: by LV Gram 60 % Normal LV wall motion Normal Left Ventricular End Diastolic Pressure LVEDP: 12 mmHg LEFT MAIN: distal: eccentric: 25 % Stenosis LEFT ANTERIOR DESCENDING ARTERY: PROX LAD: Previously placed stent has an instent 85 % restenosis MID LAD: fills from competitive flow but predominantly from DODSON graft flow with no angiographically significant appearing disease distal to the graft attachment CIRCUMFLEX ARTERY: Mild luminal irregularities OM 1: Proximal - 85 % Stenosis and fills predominantly from SVG graft flow with no angiographically significant appearing disease distal to the graft attachment RIGHT CORONARY ARTERY: PROX RCA: Previously placed stent is patent, eccentric: 25 - 50 % Stenosis MID RCA: Previously placed stent is patent DISTAL RCA: Mild luminal irregularities RIGHT AV SEGMENT: small caliber vessel with eccentic 75 % Stenosis GRAFTS: DODSON graft to the Mid LAD is patent Saphenous Vein graft to the 1st OM is patent Saphenous Vein graft to the RCA is patent VALVE FINDINGS: Mitral Valve Annular Calcification Severe AORTIC ROOT: Angiographically normal Medical Necessity - Tobacco Use Smoking Status: Never smoker Tobacco Use: Non-smoker Assessment/Plan 1. Non-ST segment elevation CA There is concern the patient may have experienced a recent non-ST segment elevation CA. This is based upon a combination of his symptoms and his abnormal cardiac enzymes which are declining. His ECG is demonstrated no new acute changes. It is unclear whether this event may have been a primary cardiovascular event/CAD event versus a secondary type event brought on by noncardiac issues such as potentially his influenza virus. The patient is now status post diagnostic cardiac catheterization. His overall LV systolic function remains preserved. He continues with [place] vessel CAD. His bypass grafts with respect to his DODSON to the LAD, SVG to OM1, and SVG to RCA system remain patent. At the present time it appears his event may have been a type II event. It does not appear he requires additional revascularization therapy. Thus he will continue cardiovascular medical management as he recuperates from his influenza virus. 2. CAD status post PCI and CABG The patient has undergone extensive revascularization in the past. He has had follow-up noninvasive and invasive studies. Has now undergone additional invasive evaluation with diagnostic cardiac catheterization as noted above. The present time he will continue medical management and follow-up. 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 He will continue be monitored for any concerns. He will continue his beta-kyle therapy. 4. Hyperlipidemia He will continue risk factor evaluation and care. 5. Hypertension He will continue to have his blood pressure monitored. His medicines can be adjusted as needed. 6. Syncope He had a syncopal event. It is unclear whether this was a situational vasovagal type event brought on by his attempt at nausea/emesis versus was this related to an underlying cardiovascular event brought on by CAD/myocardial ischemia and/or some form of cardiac dysrhythmia, etc. Based upon his ongoing cardiovascular findings there is concern his event may have been a situational vasovagal type event brought out by his influenza virus. However, he will continue to be monitored for any obvious cardiac dysrhythmias that warrant further evaluation and care. In the meantime he will continue his cardiovascular medical therapy. 7. Peripheral vascular disease He has a history of peripheral vascular disease. The details are unknown at this time. However he will continue evaluation care as deemed appropriate over time. 8. Influenza virus He has been deemed positive for the influenza virus. He will continue to be monitored. He will continue isolation protocol as deemed appropriate. He will be evaluated and cared for by internal medicine. Comment: The patient's case has been discussed and reviewed with the patient and his daughter. This note was generated using a voice recognition system and there may be incorrect words, spelling or punctuation that were not noted when reviewing the office note prior to saving.
[2019-05-25] MEDS: Furosemide 20 MG Tablet PO (10:07)
[2019-05-25] MEDS: Ferrous Gluconate 324 MG Tablet PO ×2 (10:07→17:36)
[2019-05-25] MEDS: Oseltamivir Phosphate 75 MG Capsule PO ×2 (10:07→22:30)
[2019-05-25] MEDS: Pantoprazole Sodium 20 MG Tablet PO (10:07)
[2019-05-25] MEDS: 0.9% Normal Saline 1,000 ML 75 ML IV (10:07)
--- NOTE | 2019-05-25 11:33 | CASEMGMT ---
BERNA RIOS assessment: Face to Face with patient for initial transition planning/care coordination assessment. BERNA RIOS introduced self and role at [facility], pt voices understanding and consents to assessment at this time. Pt is sitting up in bed in no distress at this time. Pt is A/Ox 4 at this time and answers all questions appropriately at this time. Care providers, pharmacy, and demographics verified/updated at this time. PCP: Bhanu Specialists: Coral, cardio; Sorin, urology at [facility] Preferred Pharmacy: [facility] Insurance: MCR A/B, [employer] Prescription Benefit: Yes Living Will/HPOA: Pt thinks that he has a LW but it is not on file at [facility] at this time. Pt does have HPOA and it is on file at [facility] at this time. Pt's , Mercy Noguera, is HPOA. LNOK: Mercy Noguera, ; Elodia Crawley, daughter Living Arrangements: Pt states lives with in 1 story home and states no concerns at home at this time. Pt states is independent with ADL's. Transportation: Pt states drives self and states no transportation concerns at this time. DME/HHC: Pt states has the following DME: cane, walker, grab bars, and shower chair. Pt states no need for any further DME at this time. Pt states no hx of HHC or SNF in the past. Pt declines need for OP therapy, HHC ,or SNF at this time. Pt states no concerns with going home at time of discharge. Pt is retired. Pt states does not smoke cigarettes but does drink ETOH occasionally. Pt voices no further concerns/needs at this time. CM to follow PT/OT evals and for any further discharge planning/needs. Advised pt to ask for CM if any further questions/concerns/needs arise, voices understanding. Pt Goal: Home Plan[place] BERNA RIOS
[2019-05-25 12:10] LABS: Bedside Glucose 154 mg/dL (70-110)
--- NOTE | 2019-05-25 12:43 | PCM.PROGNOTE ---
<Jennifer Jimenez - Last Filed: 05/25/19 12:50> Patient Problems: Active and Suspected Problems (Last Updated 01/03/19 @ 17:11 by Nai Borja) Influenza (Acute) Cardiac enzymes elevated (Acute) NSTEMI (non-ST elevated myocardial infarction) (Acute) Syncope (Acute) Subjective: Patient seen and examined. Underwent heart cath this morning which showed nonobstructive coronary arteries. Patient denies chest pain, shortness of breath. - Physical Exam Vitals/I&O's: Vital Signs Temp Pulse Resp BP Pulse Ox 97.8 F 50 L 16 120/54 L 95 05/25/19 05:15 05/25/19 06:52 05/25/19 05:15 05/25/19 05:15 05/25/19 05:15 Oxygen Delivery Method Room Air Weight: 214 lb 11.684 oz Body Mass Index (BMI) 30.8 Intake and Output for Last 24 Hours 05/23/19 05/24/19 05/25/19 23:59 23:59 23:59 Intake Total 431.67 / 791.67 796.92 / 796.92 Balance 431.67 / 791.67 796.92 / 796.92 General: Alert, Oriented x3, Cooperative HEENT: Atraumatic, PERRLA, EOMI, Normocephalic Neck: Supple, No JVD, Negative Carotid Bruits Lungs: Clear to auscultation, Normal air movement Cardiovascular: Regular rate, Regular Rhythm, Normal S1, Normal S2, No murmurs Abdomen: Bowel Sounds Present, Soft, Non Tender, Non-Distended Extremities: No clubbing, No cyanosis, No edema, Capillary Refill Less than 3 Seconds Skin: No rashes, No breakdown Musculoskeletal: No Tenderness to Palpation of Joints or Extremities Neurological: Cranial nerves II-XII grossly intact, Neuro grossly intact Psych/Mental Status: Normal Affect, Appropriate Microbiology Past 72 Hours 05/24/19 13:05 Mucosa - Nose Influenza Types A,B Direct FA (MILVIA) - Final Influenzae A Laboratory Results 05/24/19 12:50: WBC 4.8, RBC 4.72, Hgb 13.5, Hct 40.4, MCV 85.6, MCH 28.6, MCHC 33.4, RDW Std Deviation 38.5, RDW Coeff of Yamil 12.3, Plt Count 170, MPV 10.9, Immature Gran % (Auto) 0.200, Neut % (Auto) 65.9, Lymph % (Auto) 18.8 L, [place] % (Auto) 13.9 H, Eos % (Auto) 0.8, Baso % (Auto) 0.4, Absolute Neuts (auto) 3.2, Absolute Lymphs (auto) 0.91, Nucleated RBC % 0 05/24/19 12:50: Sodium 136, Potassium 3.6, Chloride 102, Carbon Dioxide 25.0, Anion Gap 9, BUN 19 H, Creatinine 1.06, Estim Creat Clear Calc 59.30, Est GFR (MDRD) Af Amer 87, Est GFR (MDRD) Non-Af 72, BUN/Creatinine Ratio 17.9, Glucose 136 H, Calcium 8.3 L, Total Bilirubin 0.60, AST 68 H, ALT 61, Alkaline Phosphatase 59, Troponin I 0.387 H, Total Protein 7.0, Albumin 3.5, Globulin 3.5, Albumin/Globulin Ratio 1.0 05/24/19 12:50: PT 13.6, INR 1.1, APTT 30.9 05/24/19 17:38: Magnesium 1.8, Troponin I 0.285 H 05/24/19 20:35: Troponin I 0.273 H 05/24/19 20:40: POC Glucose 159 H 05/25/19 05:34: WBC 3.7 L, RBC 4.38 L, Hgb 12.6 L, Hct 37.5 L, MCV 85.6, MCH 28.8, MCHC 33.6, RDW Std Deviation 38.4, RDW Coeff of Yamil 12.3, Plt Count 136 L, MPV 10.2, Immature Gran % (Auto) 0.300, Neut % (Auto) 64.4, Lymph % (Auto) 19.0, [place] % (Auto) 15.2 H, Eos % (Auto) 0.8, Baso % (Auto) 0.3, Absolute Neuts (auto) 2.4, Absolute Lymphs (auto) 0.70 L, Nucleated RBC % 0 05/25/19 05:34: Sodium 135 L, Potassium 3.6, Chloride 102, Carbon Dioxide 26.0, Anion Gap 7, BUN 16, Creatinine 0.90, Estim Creat Clear Calc 69.85, Est GFR (MDRD) Af Amer 105, Est GFR (MDRD) Non-Af 87, BUN/Creatinine Ratio 17.8, Glucose 134 H, Calcium 8.1 L, Triglycerides 133, Cholesterol 127, LDL Cholesterol 67, VLDL Cholesterol 27, HDL Cholesterol 33 L 05/25/19 06:35: POC Glucose 137 H 05/25/19 12:05: POC Glucose 154 H Current Medications Acetaminophen (Tylenol) 650 mg PO Q6H PRN PRN PRN Reason: Pain Score 1-10/Temp > 100.7 F Al Hydroxide/Mg Hydroxide (Mylanta Ii) 30 ml PO Q6H PRN PRN PRN Reason: Gastric Burning Albuterol Sulfate (Ventolin Aerosols) 2.5 mg INHALATION Q2H PRN PRN PRN Reason: SOB/Wheezing Amlodipine Besylate (Norvasc) 2.5 mg PO DAILY [facility] Last Admin: 05/25/19 05:23 Dose: 2.5 mg Documented by: Aspirin (Aspirin, Baby) 162 mg PO DAILY@1800 [facility] Last Admin: 05/24/19 18:22 Dose: 162 mg Documented by: Clopidogrel Bisulfate (Plavix) 75 mg PO DAILY [facility] Last Admin: 05/25/19 05:23 Dose: 75 mg Documented by: Enoxaparin Sodium (Lovenox) 100 mg SC Q12@0600,1800 [facility] Last Admin: 05/24/19 20:02 Dose: Not Given Documented by: Ferrous Gluconate (Ferrous Gluconate) 324 mg PO BIDCM [facility] Last Admin: 05/25/19 10:07 Dose: 324 mg Documented by: Furosemide (Lasix) 20 mg PO DAILY [facility] Last Admin: 05/25/19 10:07 Dose: 20 mg Documented by: Glucagon () 1 mg IM .X1 PRN PRN Reason: Hypoglycemia Guaifenesin (Robitussin) 20 ml PO Q4H PRN PRN PRN Reason: COUGH Heparin Sodium (Beef Lung) (Heparin 500 Unit/5 Ml (100/Ml)) 500 unit IV UD PRN PRN Reason: HEPARIN FLUSH Hydralazine HCl (Apresoline Iv) 10 mg IV Q4H PRN PRN PRN Reason: SBP > 160 Sodium Chloride () 250 mls @ 15 mls/hr IV .[id number] PRN PRN Reason: Saline Flush Sodium Chloride () 250 mls @ 15 mls/hr IV .[id number] PRN PRN Reason: Additional IVPB Infusion Dextrose (Dextrose 10%-Water) 250 mls @ 999 mls/hr IV .Q16M PRN; Protocol PRN Reason: HYPOGLYCEMIA Sodium Chloride () 1,000 mls @ 0 mls/hr IV .Q0M [facility] Last Infusion: 05/25/19 10:07 Dose: Infused Documented by: Insulin Human Lispro (Humalog Kwikpen (Bkc)) 0 unit SC ACHS [facility]; Protocol Last Admin: 05/25/19 12:40 Dose: Not Given Documented by: Labetalol HCl (Trandate) 5 mg IV X1 PRN PRN Reason: SBP > 160 prior to sheath pull Stop: 05/27/19 08:40 Losartan Potassium (Cozaar) 50 mg PO DAILY [facility] Last Admin: 05/25/19 05:23 Dose: 50 mg Documented by: Magnesium Hydroxide (Milk Of Magnesia) 30 ml PO DAILY PRN PRN PRN Reason: Constipation Melatonin (Melatonin) 3 mg PO QHS PRN PRN PRN Reason: INSOMNIA Metoprolol Succinate (Toprol Xl (Beta Ricki)) 25 mg PO DAILY [facility] Last Admin: 05/25/19 05:23 Dose: 25 mg Documented by: Nitroglycerin (Nitrostat) 0.4 mg SUBLINGUAL Q5M PRN PRN Reason: CARDIAC/CHEST PAIN Ondansetron HCl (Zofran) 4 mg IV Q8H PRN PRN PRN Reason: NAUSEA/VOMITING Oseltamivir Phosphate (Tamiflu) 75 mg PO BID [facility] Stop: 05/29/19 10:01 Last Admin: 05/25/19 10:07 Dose: 75 mg Documented by: Pantoprazole Sodium (Protonix) 20 mg PO DAILY [facility] Last Admin: 05/25/19 10:07 Dose: 20 mg Documented by: Pravastatin Sodium (Pravachol) 40 mg PO QHS [facility] Last Admin: 05/24/19 20:42 Dose: 40 mg Documented by: Prochlorperazine Edisylate (Compazine Iv) 5 mg IV Q4H PRN PRN PRN Reason: Breakthrough Nausea/Vomiting Psyllium Hydrophilic Mucilloid (Metamucil) 1 packet PO DAILY PRN PRN PRN Reason: Constipation Senna/Docusate Sodium (Senokot-S, Winsome-Colace) 2 tablet PO BID PRN PRN PRN Reason: Constipation Sodium Chloride () 10 - 40 ml IV UD PRN PRN Reason: SALINE FLUSH Last Admin: 05/25/19 05:23 Dose: 10 ml Documented by: Throat Lozenges (Cepacol Sore Throat Lozenge) 1 lozenge MUCOUS MEM Q2H PRN PRN PRN Reason: SORE THROAT Medical Necessity - Tobacco Use Smoking Status: Never smoker Tobacco Use: Non-smoker Assessment/Plan All Active Problems (Last Updated 01/03/19 @ 17:11 by Nai Borja) Influenza (Acute) Cardiac enzymes elevated (Acute) NSTEMI (non-ST elevated myocardial infarction) (Acute) Syncope (Acute) Chest pain (Acute) Dyspnea (Acute) Ventricular ectopy (Acute) Chest pain (Acute) Unstable angina (Acute) 1. NSTEMI-cardiology following. Underwent cardiac catheterization which demonstrated [place] vessel CAD, previous bypass grafts patent. Suspect demand ischemia as a result of acute influenza A. Continue medical management. Continue aspirin, statin, beta-ricki, losartan. Monitor overnight. Echocardiogram completed, report pending. 2. Acute influenza A-as needed albuterol aerosol. Chest x-ray without acute process. Oxygen stable on room air. Continue Tamiflu regimen. 3. CAD with history of CABG- Follows with Dr. Moncada. Medical management as noted above. 4. Type 2 diabetes mellitus-oral regimen on hold. Accu-Cheks with sliding scale insulin. 5. PAD/PVD-status post right lower extremity right femoral arthrectomy in 2013. Continue aspirin, statin. 6. Hypertension-stable, continue amlodipine, Lasix, losartan, metoprolol. 7. Hyperlipidemia-continue statin. 8. Iron deficiency anemia-stable, trend CBC. 9. 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 10. GERD-continue PPI. DVT prophylaxis-Lovenox Discharge planning: Monitor overnight, anticipate discharge home tomorrow. This patient was seen by ELVIRA Johansen under the supervision of Dr. Carrington. <Bhupendra Carrington - Last Filed: 05/25/19 13:15> - Physical Exam Vitals/I&O's: Vital Signs Temp Pulse Resp BP Pulse Ox 97.8 F 50 L 16 120/54 L 95 05/25/19 05:15 05/25/19 06:52 05/25/19 05:15 05/25/19 05:15 05/25/19 05:15 Oxygen Delivery Method Room Air Weight: 97.4 kg Body Mass Index (BMI) 30.8 Intake and Output for Last 24 Hours 05/23/19 05/24/19 05/25/19 23:59 23:59 23:59 Intake Total 431.67 / 791.67 796.92 / 796.92 Balance 431.67 / 791.67 796.92 / 796.92 Microbiology Past 72 Hours 05/24/19 13:05 Mucosa - Nose Influenza Types A,B Direct FA (MILVIA) - Final Influenzae A Laboratory Results 05/24/19 12:50: Sodium 136, Potassium 3.6, Chloride 102, Carbon Dioxide 25.0, Anion Gap 9, BUN 19 H, Creatinine 1.06, Estim Creat Clear Calc 59.30, Est GFR (MDRD) Af Amer 87, Est GFR (MDRD) Non-Af 72, BUN/Creatinine Ratio 17.9, Glucose 136 H, Calcium 8.3 L, Total Bilirubin 0.60, AST 68 H, ALT 61, Alkaline Phosphatase 59, Troponin I 0.387 H, Total Protein 7.0, Albumin 3.5, Globulin 3.5, Albumin/Globulin Ratio 1.0 05/24/19 12:50: PT 13.6, INR 1.1, APTT 30.9 05/24/19 17:38: Magnesium 1.8, Troponin I 0.285 H 05/24/19 20:35: Troponin I 0.273 H 05/24/19 20:40: POC Glucose 159 H 05/25/19 05:34: WBC 3.7 L, RBC 4.38 L, Hgb 12.6 L, Hct 37.5 L, MCV 85.6, MCH 28.8, MCHC 33.6, RDW Std Deviation 38.4, RDW Coeff of Yamil 12.3, Plt Count 136 L, MPV 10.2, Immature Gran % (Auto) 0.300, Neut % (Auto) 64.4, Lymph % (Auto) 19.0, [place] % (Auto) 15.2 H, Eos % (Auto) 0.8, Baso % (Auto) 0.3, Absolute Neuts (auto) 2.4, Absolute Lymphs (auto) 0.70 L, Nucleated RBC % 0 05/25/19 05:34: Sodium 135 L, Potassium 3.6, Chloride 102, Carbon Dioxide 26.0, Anion Gap 7, BUN 16, Creatinine 0.90, Estim Creat Clear Calc 69.85, Est GFR (MDRD) Af Amer 105, Est GFR (MDRD) Non-Af 87, BUN/Creatinine Ratio 17.8, Glucose 134 H, Calcium 8.1 L, Triglycerides 133, Cholesterol 127, LDL Cholesterol 67, VLDL Cholesterol 27, HDL Cholesterol 33 L 05/25/19 06:35: POC Glucose 137 H 05/25/19 12:05: POC Glucose 154 H Current Medications Acetaminophen (Tylenol) 650 mg PO Q6H PRN PRN PRN Reason: Pain Score 1-10/Temp > 100.7 F Al Hydroxide/Mg Hydroxide (Mylanta Ii) 30 ml PO Q6H PRN PRN PRN Reason: Gastric Burning Albuterol Sulfate (Ventolin Aerosols) 2.5 mg INHALATION Q2H PRN PRN PRN Reason: SOB/Wheezing Amlodipine Besylate (Norvasc) 2.5 mg PO DAILY [facility] Last Admin: 05/25/19 05:23 Dose: 2.5 mg Documented by: Aspirin (Aspirin, Baby) 162 mg PO DAILY@1800 [facility] Last Admin: 05/24/19 18:22 Dose: 162 mg Documented by: Clopidogrel Bisulfate (Plavix) 75 mg PO DAILY [facility] Last Admin: 05/25/19 05:23 Dose: 75 mg Documented by: Enoxaparin Sodium (Lovenox) 100 mg SC Q12@0600,1800 [facility] Last Admin: 05/24/19 20:02 Dose: Not Given Documented by: Ferrous Gluconate (Ferrous Gluconate) 324 mg PO BIDCM [facility] Last Admin: 05/25/19 10:07 Dose: 324 mg Documented by: Furosemide (Lasix) 20 mg PO DAILY [facility] Last Admin: 05/25/19 10:07 Dose: 20 mg Documented by: Glucagon () 1 mg IM .X1 PRN PRN Reason: Hypoglycemia Guaifenesin (Robitussin) 20 ml PO Q4H PRN PRN PRN Reason: COUGH Heparin Sodium (Beef Lung) (Heparin 500 Unit/5 Ml (100/Ml)) 500 unit IV UD PRN PRN Reason: HEPARIN FLUSH Hydralazine HCl (Apresoline Iv) 10 mg IV Q4H PRN PRN PRN Reason: SBP > 160 Sodium Chloride () 250 mls @ 15 mls/hr IV .[id number] PRN PRN Reason: Saline Flush Sodium Chloride () 250 mls @ 15 mls/hr IV .[id number] PRN PRN Reason: Additional IVPB Infusion Dextrose (Dextrose 10%-Water) 250 mls @ 999 mls/hr IV .Q16M PRN; Protocol PRN Reason: HYPOGLYCEMIA Sodium Chloride () 1,000 mls @ 0 mls/hr IV .Q0M [facility] Last Infusion: 05/25/19 10:07 Dose: Infused Documented by: Insulin Human Lispro (Humalog Kwikpen (Bkc)) 0 unit SC ACHS [facility]; Protocol Last Admin: 05/25/19 12:40 Dose: Not Given Documented by: Labetalol HCl (Trandate) 5 mg IV X1 PRN PRN Reason: SBP > 160 prior to sheath pull Stop: 05/27/19 08:40 Losartan Potassium (Cozaar) 50 mg PO DAILY [facility] Last Admin: 05/25/19 05:23 Dose: 50 mg Documented by: Magnesium Hydroxide (Milk Of Magnesia) 30 ml PO DAILY PRN PRN PRN Reason: Constipation Melatonin (Melatonin) 3 mg PO QHS PRN PRN PRN Reason: INSOMNIA Metoprolol Succinate (Toprol Xl (Beta Ricki)) 25 mg PO DAILY [facility] Last Admin: 05/25/19 05:23 Dose: 25 mg Documented by: Nitroglycerin (Nitrostat) 0.4 mg SUBLINGUAL Q5M PRN PRN Reason: CARDIAC/CHEST PAIN Ondansetron HCl (Zofran) 4 mg IV Q8H PRN PRN PRN Reason: NAUSEA/VOMITING Oseltamivir Phosphate (Tamiflu) 75 mg PO BID [facility] Stop: 05/29/19 10:01 Last Admin: 05/25/19 10:07 Dose: 75 mg Documented by: Pantoprazole Sodium (Protonix) 20 mg PO DAILY [facility] Last Admin: 05/25/19 10:07 Dose: 20 mg Documented by: Pravastatin Sodium (Pravachol) 40 mg PO QHS [facility] Last Admin: 05/24/19 20:42 Dose: 40 mg Documented by: Prochlorperazine Edisylate (Compazine Iv) 5 mg IV Q4H PRN PRN PRN Reason: Breakthrough Nausea/Vomiting Psyllium Hydrophilic Mucilloid (Metamucil) 1 packet PO DAILY PRN PRN PRN Reason: Constipation Senna/Docusate Sodium (Senokot-S, Winsome-Colace) 2 tablet PO BID PRN PRN PRN Reason: Constipation Sodium Chloride () 10 - 40 ml IV UD PRN PRN Reason: SALINE FLUSH Last Admin: 05/25/19 05:23 Dose: 10 ml Documented by: Throat Lozenges (Cepacol Sore Throat Lozenge) 1 lozenge MUCOUS MEM Q2H PRN PRN PRN Reason: SORE THROAT Assessment/Plan This patient was seen in conjunction with ELVIRA Johansen . I have independently interviewed and examined the patient and reviewed pertinent historical, laboratory, and other data. Please refer to ELVIRA Johasnen note for details of this patient's presentation, findings, and recommendations. I have reviewed ELVIRA Johansen note and concur with documented findings. In brief, patient is a 78-year-old gentleman who presented with progressive generalized weakness and a cough. Diagnosed with acute influenza A. Patient was also noted to have elevated troponin admitted to a monitored bed for subsequent management Physical Examination: GENERAL: cooperative HEENT: Atraumatic; EYES; Anicteric, NECK; supple, normal thyroid, RESPIRATORY: Diminished to auscultation CARDIOVASCULAR: Regular S1 S2, GI: soft, normoactive bowel sounds, : No Renal angle tenderness; EXTREMITIES: No edema, no clubbing, MUSCULOSKELETAL: no muscle waisting NEURO: Awake; no lateralizing signs. SKIN: No Rash PSYCH; Flat affect Assessment: 1. Acute influenza A infection 2. Acute NSTEMI secondary to demand ischemia from above 3. CAD with previous CABG 4. Peripheral arterial disease 5. Essential hypertension 6. Dyslipidemia 7. Diabetes mellitus type 2 8. GERD 9. 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 Anemia secondary to anemia of chronic disorder Recommendations: 1. I have discussed the results of my overview and impressions with the patient 2. Options for management were reviewed Code Visit Inpatient E&M: 79936 Subs Hosp L3 OBSV E&M: 32901 Subsequent observation care L3
--- NOTE | 2019-05-25 15:06 | CASEMGMT ---
Patient has a Healthcare POA on file. He told RN GABRIEL he thinks he has a Healthcare LW. Christie ALEMAN MSW
--- NOTE | 2019-05-25 15:24 | NURSING ---
pt's heart cath recovery complete. Pt up to RR and then ambulated in ram without complications. Site remains soft. Dsg C/D/I,
[2019-05-25 17:36] LABS: Bedside Glucose 157 mg/dL (70-110)
[2019-05-25] MEDS: Aspirin 81 MG TAB.CHEW 162 MG PO (17:36)
[2019-05-25] MEDS: Enoxaparin 100 MG/ML Syringe SC (17:36)
[2019-05-25] MEDS: Pravastatin 40 MG Tablet PO (22:30)
[2019-05-25] MEDS: MELATONIN 3 MG TABLET PO (22:30)
[2019-05-26 01:06] LABS: Bedside Glucose 134 mg/dL (70-110)
[2019-05-26 03:02] VITALS: PULSE 57
[2019-05-26 04:23] VITALS: BP 119/56; PULSE 59; RESP 21; TEMP 36.5; O2SAT 97
[2019-05-26] MEDS: Enoxaparin 100 MG/ML Syringe SC (06:05)
[2019-05-26 07:00] VITALS: PULSE 54
[2019-05-26 07:23] LABS: Hematocrit 37.5 % (40-54); Hemoglobin 12.5 g/dL (13.0-16.5); Mean Corp Hgb Conc 33.3 g/dL (32-36); Mean Corpuscular Volume 84.1 fL (80-94); Mean Platelet Vol. 10.3 fl (6.2-12.0); Platelet Count 135 K/mm3 (150-450); RBC Distribution Width CV 12.4 % (11.6-14.6); RBC Distribution Width SD 37.8 fl (35.1-43.9); Red Blood Count 4.46 M/mm3 (4.6-6.2); White Blood Count 3.1 K/mm3 (4.4-11.0)
[2019-05-26 07:36] LABS: Bedside Glucose 151 mg/dL (70-110)
[2019-05-26 07:59] LABS: Anion Gap 5 (5-15); BUN 15 mg/dL (7-18); BUN/Creat Ratio 15.9 RATIO (10-20); Calcium,Total 8.5 mg/dL (8.5-10.1); Chloride 106 mmol/L (98-107); Creatinine, Serum 0.94 mg/dL (0.70-1.30); EST Glomerular Filtration Rate 82 mL/min (>60); Est Glom Filt Rate - Afr Amer 99 mL/min (>60); Estimated Creatinine Clearance 66.87 ml/min; Glucose 164 mg/dL (74-106); Potassium 3.7 mmol/L (3.5-5.1); Sodium Level 139 mmol/L (136-145)
[2019-05-26] MEDS: Ferrous Gluconate 324 MG Tablet PO (08:37)
[2019-05-26] MEDS: 0.9% Saline Lock 10 ML Syringe IV (08:38)
[2019-05-26 10:23] VITALS: BP 138/59; PULSE 62; RESP 16; TEMP 36.5; O2SAT 99
[2019-05-26 10:39] VITALS: BP 138/59; PULSE 62
[2019-05-26] MEDS: Metoprolol(XL)Succ 25 MG Tablet PO (10:39)
[2019-05-26] MEDS: Pantoprazole Sodium 20 MG Tablet PO (10:39)
[2019-05-26] MEDS: Oseltamivir Phosphate 75 MG Capsule PO (10:39)
[2019-05-26] MEDS: Clopidogrel Bisulfate 75 MG Tablet PO (10:39)
[2019-05-26] MEDS: amLODIPine 2.5 MG Tablet PO (10:39)
--- NOTE | 2019-05-26 10:39 | PCM.DC ---
- Discharge Diagnoses Current Active Problems: Current Active and Chronic Problems (Last Updated 05/25/19 @ 17:21 by Nai Borja) Influenza (Acute) Cardiac enzymes elevated (Acute) NSTEMI (non-ST elevated myocardial infarction) (Acute) Syncope (Acute) You will use the following diet at home:: Calorie/Carbohydrate Controlled (specify 1200, 1400, etc), Cardiac Discharge Activity: Return to Normal Activity Call your doctor if you observe: Shortness of breath, Dizziness, Fainting spells, Chest pain Instructions: Influenza Additional Instructions: Hold metformin for 48hr following heart cath. Allergies/Adverse Reactions: Allergies atorvastatin [From Lipitor] Allergy (Verified 05/24/19 11:55) Rash codeine Allergy (Verified 05/24/19 11:55) Rash Medications to take at Discharge Amlodipine [Norvasc] 2.5 mg PO DAILY 05/24/19 Aspirin [Aspirin, Baby] 162 mg PO DAILY@1800 05/24/19 Ferrous Gluconate 324 mg PO BID 05/24/19 Furosemide [Lasix] 20 mg PO DAILY 05/24/19 Losartan Potassium [Cozaar] 50 mg PO DAILY 05/24/19 Metoprolol(XL)Succ [Toprol Xl (Beta Ricki)] 25 mg PO DAILY 05/24/19 Omeprazole [Prilosec] 20 mg PO DAILY 05/24/19 Pravastatin [Pravachol] 40 mg PO QHS 05/24/19 metFORMIN HCl [Glucophage] 1,000 mg PO BIDCM 05/24/19 Oseltamivir Phosphate [Tamiflu] 75 mg PO BID #6 cap 05/26/19 The following prescriptions were given: Oseltamivir Phosphate [Tamiflu] 75 mg PO BID #6 cap Transmission Status: Pending to [id number] Primary Care Physician: Eliceo Drummond MD [Primary Care Provider] - 2 Days Please follow up with your Primary Care Physician in: 1 Week Test Results: Test results from this visit will be discussed in further detail at your follow-up appointment, if applicable. Please Follow Up With: Ankit Moncada MD When: 2-4 Weeks, may see [employer] MECH[employer]IC/PA Proposed Discharge Date: 05/26/19
[2019-05-26] MEDS: Losartan Potassium 50 MG Tablet PO (10:40)
[2019-05-26] MEDS: Furosemide 20 MG Tablet PO (10:40)
--- NOTE | 2019-05-26 10:41 | DS.PCM_ITS ---
<Jennifer Jimenez - Last Filed: 05/26/19 10:49> Discharge Date and Diagnosis Date of Admission: 05/24/19 Date of Discharge: 05/26/19 - Primary Discharge Diagnosis Active and Suspected Problems (Last Updated 05/25/19 @ 17:21 by Nai Borja) 1. NSTEMI, demand ischemia due to acute influenza A 2. Acute influenza A 3. CAD with history of CABG 4. Type 2 diabetes mellitus 5. PAD/PVD-status post right lower extremity right femoral arthrectomy in 2013. 6. Hypertension 7. Hyperlipidemia 8. Iron deficiency anemia 9. 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 10. GERD - Secondary Discharge Diagnosis Chronic Problems (Last Updated 05/25/19 @ 17:21 by Nai Borja) CAD in q[place] artery (Chronic) Pure hypercholesterolemia (Chronic) Essential hypertension (Chronic) S/P CABG x 3 (Chronic ~07/21/16) CABG X 3 DODSON to LAD, SVG to OM, SVG to RCA 07/21/16 Atherosclerotic heart disease of q[place] coronary artery without angina pectoris (Chronic) Penile ca (Chronic) DM (diabetes mellitus), type 2 (Chronic) Bladder cancer (Chronic) Hx of heart artery stent (Chronic) LHC X 1 stent to LAD ; LHC X 4 stents proximal RCA Murmur, cardiac (Chronic) Peripheral arterial disease (Chronic) PVD (peripheral vascular disease) (Chronic) Obesity (BMI 30.0-34.9) (Chronic) Prostate ca (Chronic) had a prostatectomy Hospital Course and Treatment Imaging Results: Diagnostic Data Chest X-Ray 05/24/19 12:51 IMPRESSION: No acute pathology. Electronically Signed: Roberto Bustamante, at 13:59 EST Tel , Service support , Dr. Moncada- Cardiology Operations: None Procedures: 2-D Echocardiogram, Cardiac catheterization Summary of Care Provided: The patient is a 78 year old M admitted 05/24/2019 due to chest pain, URI sx. 1. NSTEMI-cardiology consulted during admission. Underwent cardiac catheterization which demonstrated qaw[place] vessel CAD, previous bypass grafts patent. Suspect demand ischemia as a result of acute influenza A. Continue medical management. Continue aspirin, statin, beta-ricki, losartan. Echocardiogram demonstrated ejection fraction of 60%. Follow-up with cardiology in 2 to 4 weeks. 2. Acute influenza A-Chest x-ray without acute process. Oxygen stable on room air. Continue Tamiflu regimen. 3. CAD with history of CABG- Follows with Dr. Moncada. Medical management as noted above. 4. Type 2 diabetes mellitus-resume metformin 48 hours following heart cath. 5. PAD/PVD-status post right lower extremity right femoral arthrectomy in 2013. Continue aspirin, statin. 6. Hypertension-stable, continue amlodipine, Lasix, losartan, metoprolol. 7. Hyperlipidemia-continue statin. 8. Iron deficiency anemia-stable. 9. 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 10. GERD-continue PPI. General: Alert, Oriented x3, Cooperative HEENT: Atraumatic, PERRLA, EOMI, Normocephalic Neck: Supple, No JVD, Negative Carotid Bruits Lungs: Clear to auscultation, Normal air movement Cardiovascular: Regular rate, Regular Rhythm, Normal S1, Normal S2, No murmurs Abdomen: Bowel Sounds Present, Soft, Non Tender, Non-Distended Extremities: No clubbing, No cyanosis, No edema, Capillary Refill Less than 3 Seconds Skin: No rashes, No breakdown Musculoskeletal: No Tenderness to Palpation of Joints or Extremities Neurological: Cranial nerves II-XII grossly intact, Neuro grossly intact Psych/Mental Status: Normal Affect, Appropriate Patient seen and examined prior to discharge. Physical assessment as noted above. Patient is stable for discharge with follow up recommendations as noted above. This patient was seen by ELVIRA Johansen under the supervision of Dr. Carrington. - Physical Exam Vitals/I&O's: Vital Signs Temp Pulse Resp BP Pulse Ox 97.7 F L 62 16 138/59 H 99 05/26/19 10:23 05/26/19 10:23 05/26/19 10:23 05/26/19 10:23 05/26/19 10:23 Oxygen Delivery Method Room Air Weight: 214 lb 11.684 oz Body Mass Index (BMI) 30.8 Intake and Output for Last 24 Hours 05/24/19 05/25/19 05/26/19 23:59 23:59 23:59 Intake Total 431.67 / 791.67 1799.42 / 1799.42 Output Total 400 / 400 Balance 431.67 / 791.67 1399.42 / 1399.42 Microbiology Past 72 Hours 05/24/19 13:05 Mucosa - Nose Influenza Types A,B Direct FA (MILVIA) - Final Influenzae A Laboratory Results 05/25/19 12:05: POC Glucose 154 H 05/25/19 16:32: POC Glucose 157 H 05/25/19 22:17: POC Glucose 134 H 05/26/19 06:43: POC Glucose 151 H 05/26/19 06:44: WBC 3.1 L, RBC 4.46 L, Hgb 12.5 L, Hct 37.5 L, MCV 84.1, MCH 28.0, MCHC 33.3, RDW Std Deviation 37.8, RDW Coeff of Yamil 12.4, Plt Count 135 L, MPV 10.3 05/26/19 06:44: Sodium 139, Potassium 3.7, Chloride 106, Carbon Dioxide 28.0, Anion Gap 5, BUN 15, Creatinine 0.94, Estim Creat Clear Calc 66.87, Est GFR (MDRD) Af Amer 99, Est GFR (MDRD) Non-Af 82, BUN/Creatinine Ratio 15.9, Glucose 164 H, Calcium 8.5 Current Medications Acetaminophen (Tylenol) 650 mg PO Q6H PRN PRN PRN Reason: Pain Score 1-10/Temp > 100.7 F Al Hydroxide/Mg Hydroxide (Mylanta Ii) 30 ml PO Q6H PRN PRN PRN Reason: Gastric Burning Albuterol Sulfate (Ventolin Aerosols) 2.5 mg INHALATION Q2H PRN PRN PRN Reason: SOB/Wheezing Amlodipine Besylate (Norvasc) 2.5 mg PO DAILY [facility] Last Admin: 05/25/19 05:23 Dose: 2.5 mg Documented by: Aspirin (Aspirin, Baby) 162 mg PO DAILY@1800 [facility] Last Admin: 05/25/19 17:36 Dose: 162 mg Documented by: Clopidogrel Bisulfate (Plavix) 75 mg PO DAILY [facility] Last Admin: 05/25/19 05:23 Dose: 75 mg Documented by: Enoxaparin Sodium (Lovenox) 100 mg SC Q12@0600,1800 [facility] Last Admin: 05/26/19 06:05 Dose: 100 mg Documented by: Ferrous Gluconate (Ferrous Gluconate) 324 mg PO BIDCM [facility] Last Admin: 05/26/19 08:37 Dose: 324 mg Documented by: Furosemide (Lasix) 20 mg PO DAILY [facility] Last Admin: 05/25/19 10:07 Dose: 20 mg Documented by: Glucagon () 1 mg IM .X1 PRN PRN Reason: Hypoglycemia Guaifenesin (Robitussin) 20 ml PO Q4H PRN PRN PRN Reason: COUGH Heparin Sodium (Beef Lung) (Heparin 500 Unit/5 Ml (100/Ml)) 500 unit IV UD PRN PRN Reason: HEPARIN FLUSH Hydralazine HCl (Apresoline Iv) 10 mg IV Q4H PRN PRN PRN Reason: SBP > 160 Sodium Chloride () 250 mls @ 15 mls/hr IV .[id number] PRN PRN Reason: Saline Flush Sodium Chloride () 250 mls @ 15 mls/hr IV .[id number] PRN PRN Reason: Additional IVPB Infusion Dextrose (Dextrose 10%-Water) 250 mls @ 999 mls/hr IV .Q16M PRN; Protocol PRN Reason: HYPOGLYCEMIA Sodium Chloride () 1,000 mls @ 0 mls/hr IV .Q0M [facility] Last Infusion: 05/25/19 10:07 Dose: Infused Documented by: Insulin Human Lispro (Humalog Kwikpen (Bkc)) 0 unit SC ACHS [facility]; Protocol Last Admin: 05/26/19 06:47 Dose: Not Given Documented by: Labetalol HCl (Trandate) 5 mg IV X1 PRN PRN Reason: SBP > 160 prior to sheath pull Stop: 05/27/19 08:40 Losartan Potassium (Cozaar) 50 mg PO DAILY [facility] Last Admin: 05/25/19 05:23 Dose: 50 mg Documented by: Magnesium Hydroxide (Milk Of Magnesia) 30 ml PO DAILY PRN PRN PRN Reason: Constipation Melatonin (Melatonin) 3 mg PO QHS PRN PRN PRN Reason: INSOMNIA Last Admin: 05/25/19 22:30 Dose: 3 mg Documented by: Metoprolol Succinate (Toprol Xl (Beta Ricki)) 25 mg PO DAILY [facility] Last Admin: 05/25/19 05:23 Dose: 25 mg Documented by: Nitroglycerin (Nitrostat) 0.4 mg SUBLINGUAL Q5M PRN PRN Reason: CARDIAC/CHEST PAIN Ondansetron HCl (Zofran) 4 mg IV Q8H PRN PRN PRN Reason: NAUSEA/VOMITING Oseltamivir Phosphate (Tamiflu) 75 mg PO BID [facility] Stop: 05/29/19 10:01 Last Admin: 05/25/19 22:30 Dose: 75 mg Documented by: Pantoprazole Sodium (Protonix) 20 mg PO DAILY [facility] Last Admin: 05/25/19 10:07 Dose: 20 mg Documented by: Pravastatin Sodium (Pravachol) 40 mg PO QHS [facility] Last Admin: 05/25/19 22:30 Dose: 40 mg Documented by: Prochlorperazine Edisylate (Compazine Iv) 5 mg IV Q4H PRN PRN PRN Reason: Breakthrough Nausea/Vomiting Psyllium Hydrophilic Mucilloid (Metamucil) 1 packet PO DAILY PRN PRN PRN Reason: Constipation Senna/Docusate Sodium (Senokot-S, Winsome-Colace) 2 tablet PO BID PRN PRN PRN Reason: Constipation Sodium Chloride () 10 - 40 ml IV UD PRN PRN Reason: SALINE FLUSH Last Admin: 05/26/19 08:38 Dose: 10 ml Documented by: Throat Lozenges (Cepacol Sore Throat Lozenge) 1 lozenge MUCOUS MEM Q2H PRN PRN PRN Reason: SORE THROAT Discharge Diet: Low fat/ Low Cholesterol, Carb Control Diet Discharge Activity: Return to Normal Activity Call your doctor if you observe: Shortness of breath, Dizziness, Fainting spells, Chest pain Home Medications: Medications to take at Discharge Amlodipine [Norvasc] 2.5 mg PO DAILY 05/24/19 Aspirin [Aspirin, Baby] 162 mg PO DAILY@1800 05/24/19 Ferrous Gluconate 324 mg PO BID 05/24/19 Furosemide [Lasix] 20 mg PO DAILY 05/24/19 Losartan Potassium [Cozaar] 50 mg PO DAILY 05/24/19 Metoprolol(XL)Succ [Toprol Xl (Beta Ricki)] 25 mg PO DAILY 05/24/19 Omeprazole [Prilosec] 20 mg PO DAILY 05/24/19 Pravastatin [Pravachol] 40 mg PO QHS 05/24/19 metFORMIN HCl [Glucophage] 1,000 mg PO BIDCM 05/24/19 Oseltamivir Phosphate [Tamiflu] 75 mg PO BID #6 cap 05/26/19 Following Prescrptions Were Given to Patient: Oseltamivir Phosphate [Tamiflu] 75 mg PO BID #6 cap Transmission Status: Received by [id number] Primary Care Physician: Eliceo Drummond MD [Primary Care Provider] - 2 Days Please follow up with your Primary Care Physician in: 1 Week Please Follow Up With: Ankit Moncada MD When: 2-4 Weeks, may see SHANK ARCHER/PA Please Follow Up With: Ankit Moncada MD Patient Instructions: Influenza Disposition: Home Minutes spent on discharge:: 35 Patient Condition:: Stable Medical Necessity - Tobacco Use Smoking Status: Never smoker Tobacco Use: Non-smoker Meaningful Use Info Meaningful Use Diagnoses (Choose all that apply): AMI - AMI/Post PCI/Angioplasty Aspirin given w/in 24hrs of arrival?: Yes ASA at discharge?: Yes Antiplatelet Therapy at Discharge:: No Reason Antiplatelet Therapy not ordered:: demand ischemia Statins at discharge?: Yes Christofer/ARB at discharge?: Yes Beta Ricki at discharge?: Yes Done w/ Acute MT measure.: Yes <Bhupendra Carrington - Last Filed: 05/26/19 11:31> Discharge Date and Diagnosis - Secondary Discharge Diagnosis Chronic Problems (Last Updated 05/25/19 @ 17:21 by Nai Borja) CAD in q[place] artery (Chronic) Pure hypercholesterolemia (Chronic) Essential hypertension (Chronic) S/P CABG x 3 (Chronic ~07/21/16) CABG X 3 DODSON to LAD, SVG to OM, SVG to RCA 07/21/16 Atherosclerotic heart disease of q[place] coronary artery without angina pectoris (Chronic) Penile ca (Chronic) DM (diabetes mellitus), type 2 (Chronic) Bladder cancer (Chronic) Hx of heart artery stent (Chronic) LHC X 1 stent to LAD ; LHC X 4 stents proximal RCA Murmur, cardiac (Chronic) Peripheral arterial disease (Chronic) PVD (peripheral vascular disease) (Chronic) Obesity (BMI 30.0-34.9) (Chronic) Prostate ca (Chronic) had a prostatectomy Hospital Course and Treatment Summary of Care Provided: This patient was seen in conjunction with ELVIRA Johansen . I have independently interviewed and examined the patient and reviewed pertinent historical, laboratory, and other data. Please refer to ELVIRA Johansen note for details of this patient's presentation, findings, and recommendations. I have reviewed ELVIRA Johansen note and concur with documented findings. In brief, patient is a 78-year-old gentleman who presented with progressive generalized weakness and a cough. Diagnosed with acute influenza A. Patient was also noted to have elevated troponin admitted to a monitored bed for subsequent management Assessment: 1. Acute influenza A infection 2. Acute NSTEMI secondary to demand ischemia from above 3. CAD with previous CABG 4. Peripheral arterial disease 5. Essential hypertension 6. Dyslipidemia 7. Diabetes mellitus type 2 8. GERD 9. 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 Anemia secondary to anemia of chronic disorder Hospital course: As documented above - Physical Exam Vitals/I&O's: Vital Signs Temp Pulse Resp BP Pulse Ox 97.7 F L 62 16 138/59 H 99 05/26/19 10:23 05/26/19 10:39 05/26/19 10:23 05/26/19 10:39 05/26/19 10:23 Oxygen Delivery Method Room Air Weight: 97.4 kg Body Mass Index (BMI) 30.8 Intake and Output for Last 24 Hours 05/24/19 05/25/19 05/26/19 23:59 23:59 23:59 Intake Total 431.67 / 791.67 1799.42 / 1799.42 30 Output Total 400 / 400 Balance 431.67 / 791.67 1399.42 / 1399.42 Microbiology Past 72 Hours 05/24/19 13:05 Mucosa - Nose Influenza Types A,B Direct FA (MILVIA) - Final Influenzae A Laboratory Results 05/25/19 12:05: POC Glucose 154 H 05/25/19 16:32: POC Glucose 157 H 05/25/19 22:17: POC Glucose 134 H 05/26/19 06:43: POC Glucose 151 H 05/26/19 06:44: WBC 3.1 L, RBC 4.46 L, Hgb 12.5 L, Hct 37.5 L, MCV 84.1, MCH 28.0, MCHC 33.3, RDW Std Deviation 37.8, RDW Coeff of Yamil 12.4, Plt Count 135 L, MPV 10.3 05/26/19 06:44: Sodium 139, Potassium 3.7, Chloride 106, Carbon Dioxide 28.0, Anion Gap 5, BUN 15, Creatinine 0.94, Estim Creat Clear Calc 66.87, Est GFR (MDRD) Af Amer 99, Est GFR (MDRD) Non-Af 82, BUN/Creatinine Ratio 15.9, Glucose 164 H, Calcium 8.5 Current Medications Acetaminophen (Tylenol) 650 mg PO Q6H PRN PRN PRN Reason: Pain Score 1-10/Temp > 100.7 F Al Hydroxide/Mg Hydroxide (Mylanta Ii) 30 ml PO Q6H PRN PRN PRN Reason: Gastric Burning Albuterol Sulfate (Ventolin Aerosols) 2.5 mg INHALATION Q2H PRN PRN PRN Reason: SOB/Wheezing Amlodipine Besylate (Norvasc) 2.5 mg PO DAILY [facility] Last Admin: 05/26/19 10:39 Dose: 2.5 mg Documented by: Aspirin (Aspirin, Baby) 162 mg PO DAILY@1800 [facility] Last Admin: 05/25/19 17:36 Dose: 162 mg Documented by: Clopidogrel Bisulfate (Plavix) 75 mg PO DAILY [facility] Last Admin: 05/26/19 10:39 Dose: 75 mg Documented by: Enoxaparin Sodium (Lovenox) 100 mg SC Q12@0600,1800 [facility] Last Admin: 05/26/19 06:05 Dose: 100 mg Documented by: Ferrous Gluconate (Ferrous Gluconate) 324 mg PO BIDCM [facility] Last Admin: 05/26/19 08:37 Dose: 324 mg Documented by: Furosemide (Lasix) 20 mg PO DAILY [facility] Last Admin: 05/26/19 10:40 Dose: 20 mg Documented by: Glucagon () 1 mg IM .X1 PRN PRN Reason: Hypoglycemia Guaifenesin (Robitussin) 20 ml PO Q4H PRN PRN PRN Reason: COUGH Heparin Sodium (Beef Lung) (Heparin 500 Unit/5 Ml (100/Ml)) 500 unit IV UD PRN PRN Reason: HEPARIN FLUSH Hydralazine HCl (Apresoline Iv) 10 mg IV Q4H PRN PRN PRN Reason: SBP > 160 Sodium Chloride () 250 mls @ 15 mls/hr IV .[id number] PRN PRN Reason: Saline Flush Sodium Chloride () 250 mls @ 15 mls/hr IV .[id number] PRN PRN Reason: Additional IVPB Infusion Dextrose (Dextrose 10%-Water) 250 mls @ 999 mls/hr IV .Q16M PRN; Protocol PRN Reason: HYPOGLYCEMIA Sodium Chloride () 1,000 mls @ 0 mls/hr IV .Q0M [facility] Last Infusion: 05/25/19 10:07 Dose: Infused Documented by: Insulin Human Lispro (Humalog Kwikpen (Bkc)) 0 unit SC ACHS [facility]; Protocol Last Admin: 05/26/19 06:47 Dose: Not Given Documented by: Labetalol HCl (Trandate) 5 mg IV X1 PRN PRN Reason: SBP > 160 prior to sheath pull Stop: 05/27/19 08:40 Losartan Potassium (Cozaar) 50 mg PO DAILY [facility] Last Admin: 05/26/19 10:40 Dose: 50 mg Documented by: Magnesium Hydroxide (Milk Of Magnesia) 30 ml PO DAILY PRN PRN PRN Reason: Constipation Melatonin (Melatonin) 3 mg PO QHS PRN PRN PRN Reason: INSOMNIA Last Admin: 05/25/19 22:30 Dose: 3 mg Documented by: Metoprolol Succinate (Toprol Xl (Beta Ricki)) 25 mg PO DAILY [facility] Last Admin: 05/26/19 10:39 Dose: 25 mg Documented by: Nitroglycerin (Nitrostat) 0.4 mg SUBLINGUAL Q5M PRN PRN Reason: CARDIAC/CHEST PAIN Ondansetron HCl (Zofran) 4 mg IV Q8H PRN PRN PRN Reason: NAUSEA/VOMITING Oseltamivir Phosphate (Tamiflu) 75 mg PO BID [facility] Stop: 05/29/19 10:01 Last Admin: 05/26/19 10:39 Dose: 75 mg Documented by: Pantoprazole Sodium (Protonix) 20 mg PO DAILY [facility] Last Admin: 05/26/19 10:39 Dose: 20 mg Documented by: Pravastatin Sodium (Pravachol) 40 mg PO QHS [facility] Last Admin: 05/25/19 22:30 Dose: 40 mg Documented by: Prochlorperazine Edisylate (Compazine Iv) 5 mg IV Q4H PRN PRN PRN Reason: Breakthrough Nausea/Vomiting Psyllium Hydrophilic Mucilloid (Metamucil) 1 packet PO DAILY PRN PRN PRN Reason: Constipation Senna/Docusate Sodium (Senokot-S, Winsome-Colace) 2 tablet PO BID PRN PRN PRN Reason: Constipation Sodium Chloride () 10 - 40 ml IV UD PRN PRN Reason: SALINE FLUSH Last Admin: 05/26/19 08:38 Dose: 10 ml Documented by: Throat Lozenges (Cepacol Sore Throat Lozenge) 1 lozenge MUCOUS MEM Q2H PRN PRN PRN Reason: SORE THROAT Code Visit OBSV E&M: [id number] Observation care discharge
--- NOTE | 2019-05-26 11:12 | PHA.DC.MC ---
Pharmacy Service has performed discharge medication reconciliation and counseling for this patient. 1. OSELTAMIVIR 75MG PO BID X 6 DOSES The patient's discharge medication list was reviewed for discrepancies and discrepancies were resolved. Home Medications Amlodipine [Norvasc] 2.5 mg PO DAILY 05/24/19 Aspirin [Aspirin, Baby] 162 mg PO DAILY@1800 05/24/19 Ferrous Gluconate 324 mg PO BID 05/24/19 Furosemide [Lasix] 20 mg PO DAILY 05/24/19 Losartan Potassium [Cozaar] 50 mg PO DAILY 05/24/19 Metoprolol(XL)Succ [Toprol Xl (Beta Ricki)] 25 mg PO DAILY 05/24/19 Omeprazole [Prilosec] 20 mg PO DAILY 05/24/19 Pravastatin [Pravachol] 40 mg PO QHS 05/24/19 metFORMIN HCl [Glucophage] 1,000 mg PO BIDCM 05/24/19 Oseltamivir Phosphate [Tamiflu] 75 mg PO BID #6 cap 05/26/19 The patient was counseled on the following discharge medications and changes in medications for homegoing were reviewed. The Reason for Use, instructions for use, and potential side effects were reviewed for all new medications. The patient's questions regarding all of their medications were answered. The patient was able to verbally demonstrate an understanding of their discharge medications.
[2019-05-26 11:55] LABS: Bedside Glucose 186 mg/dL (70-110)
--- NOTE | 2019-05-29 14:43 | CASEMGMT ---
Case Management DC F/u Call: DC Date: 05/26/2019 DC Diagnosis: 1. NSTEMI, demand ischemia due to acute influenza A 2. Acute influenza A 3. CAD with history of CABG 4. Type 2 diabetes mellitus 5. PAD/PVD-status post right lower extremity right femoral arthrectomy in 2013. 6. Hypertension 7. Hyperlipidemia 8. Iron deficiency anemia 9. 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 10. GERD DC Disposition: Home Lace/Strata: 01/29 Called patient listed cell number on demographics, no answer, VM did not confirm correct identity of patient and therefore no VM left. Juan Ramos RNCM
== END 2019-05-26 12:52 | disposition home or self-care (01) | DRG 193 ==
LOC: ED 15:00 → PCU 16:43
PROVIDERS: Nurse Practitioner Family; Admitting Provider Family Medicine; Emergency Provider Emergency Medicine; PCP Family Medicine; Visit Provider Internal Medicine
DX: J10.1 Influenza due to other identified influenza virus with other respiratory manifestations (principal); I21.A1 Myocardial infarction type 2; T82.855A Stenosis of coronary artery stent, initial encounter; I25.10 Atherosclerotic heart disease of native coronary artery without angina pectoris; E78.5 Hyperlipidemia, unspecified; D50.9 Iron deficiency anemia, unspecified; I10 Essential (primary) hypertension; K21.9 Gastro-esophageal reflux disease without esophagitis; I73.9 Peripheral vascular disease, unspecified; E11.9 Type 2 diabetes mellitus without complications; R55 Syncope and collapse; Z95.5 Presence of coronary angioplasty implant and graft; Z85.46 Personal history of malignant neoplasm of prostate; Z90.79 Acquired absence of other genital organ(s); Z95.1 Presence of aortocoronary bypass graft; Z79.84 Long term (current) use of oral hypoglycemic drugs; Z85.51 Personal history of malignant neoplasm of bladder; E66.9 Obesity, unspecified; Z68.30 Body mass index [BMI] 30.0-30.9, adult; Z87.891 Personal history of nicotine dependence
CPT/HCPCS: 36415; 71045; 80048; 80053; 80061; 82962; 83735; 84484; 85025; 85027; 85610; 85730; 87804; 93005; 93306; 93459; 97162; 97165; 99152; 99153; 99283; J7030; Q9957; A4216; C1769; C1894; C8929; Q9967

== ENCOUNTER → 2020-10-29 08:33 | Outpatient (CLI) | payer MEDICARE, OTHER, SELFPAY ==
[2020-10-29 10:15] LABS: AST(SGOT) 20 U/L (15-37); Alanine Aminotransfer ALT/SGPT 25 U/L (16-61); Albumin, Serum 3.6 g/dL (3.2-5.0); Alkaline Phosphatase 54 U/L (45-117); Bilirubin, Direct 0.11 mg/dL (0.00-0.30); Cholesterol 154 mg/dL (200); Globulin 3.4 g/dL (2.2-4.2); High Density Lipoprotein 57 mg/dL; Triglycerides 106 mg/dL; Very Low Density Lipoprotein 21 mg/dL (5-40)
== END ==
PROVIDERS: PCP Family Medicine; Referring Provider Internal Medicine Cardiovascular Disease; Visit Provider Internal Medicine Cardiovascular Disease
DX: E78.00 Pure hypercholesterolemia, unspecified (principal)
CPT/HCPCS: 36415; 80061; 80076

== ENCOUNTER 2022-09-23 11:32 | Observation (INO) | payer MEDICARE, OTHER, SELFPAY ==
[2022-09-23] VITALS (8 sets, daily range): BP systolic 143–201; BP diastolic 53–100; PULSE 48–57; RESP 16–24; TEMP 35.9–37; O2SAT 96–100; BMI 29.3; BMI 28.3
--- NOTE | 2022-09-23 12:05 | EKG12_ITS ---
Test Reason : Blood Pressure : / mmHG Vent. Rate : 052 BPM Atrial Rate : 052 BPM P-R Int : 184 ms QRS Dur : 098 ms QT Int : 464 ms P-R-T Axes : 000 -31 -10 degrees QTc Int : 431 ms Sinus bradycardia Left axis deviation Minimal voltage criteria for LVH, may be normal variant ( Shaw product ) Abnormal ECG Confirmed by MANDEEP AN, MICHEL ([id number]), school photograph editor ALESSANDRO AGUAYO ([id number]) on 09/24/2022 10:39:50 AM Referred By: Confirmed By:MICHEL KAUFMAN MD
--- NOTE | 2022-09-23 12:05 | CT_ITS ---
STUDY: CT BRAIN WITHOUT CONTRAST REASON FOR EXAM: Male, 82 years old. Confusion. 3-4 day history of weakness. RADIATION DOSAGE (If Supplied By Facility): CTDIvol = ( 44.99 ) mGy, DLP = ( 815.79 ) mGycm TECHNIQUE: Transaxial CT imaging of the brain was performed without administration of intravenous contrast material. Individualized dose optimization techniques were used for this CT. COMPARISON: No relevant priors. FINDINGS: Normal soft tissue structures. Normal calvarium. There is mild cerebral atrophy with widening of the extra-axial spaces and ventricular dilatation. There are areas of decreased attenuation within the white matter tracts of the supratentorial brain, consistent with microvascular disease changes. There are small punctate calcifications of the basal ganglia which are seen in the aging brain as a normal variant. Normal brainstem. Normal cerebellum. There is no intracranial hemorrhage. There are no findings of an acute ischemic infarction. Atherosclerotic calcification of the cavernous portions of the internal carotid arteries bilaterally. Normal visualized paranasal sinuses. CT/Brain/Head without Contrast IMPRESSION: Chronic involutional changes of the brain. Electronically Signed: Allen Wahl MD at 13:48 EDT ,
--- NOTE | 2022-09-23 12:06 | EDS_ITS ---
HPI History of Present Illness Chief Complaint: Weakness Informant: patient Narrative Narrative: Patient has been generally weak and disoriented for the past 3 to 4 days. Lives in independent living with his significant other. She states he has had some diarrhea lately, several bouts per day no blood or melena. He occasionally coughs when he tries to eat or drink things but not all of the time and he denies any dyspnea right now. They present here because he was unable to get out of bed this morning without significant assistance. He is at [facility] and they discussed getting him a higher level of care but he needed to come to the ER first. The patient states other than being generally weak he is asymptomatic right now. [facility] Medical History Atherosclerotic heart disease of [place] coronary artery without angina pectoris Atypical chest pain Bladder cancer CAD (coronary artery disease) Chest pain DM (diabetes mellitus), type 2 Essential hypertension History of left heart catheterization (LHC) (~01/03/19) History of left heart catheterization (LHC) (~05/25/19) HLD (hyperlipidemia) HTN (hypertension) Influenza Murmur, cardiac Obesity (BMI 30.0-34.9) PIEDAD on CPAP Parkinson's disease Penile ca Peripheral arterial disease Prostate ca Pure hypercholesterolemia PVD (peripheral vascular disease) Unstable angina Ventricular ectopy Home Medications amlodipine 2.5 mg tablet 2.5 mg PO DAILY bp 05/24/19 [History Last Taken 05/24/19] aspirin 81 mg chewable tablet 162 mg PO DAILY@1800 [facility] 05/24/19 [History Last Taken 05/23/19] ferrous gluconate 324 mg (38 mg iron) tablet 324 mg PO BID supplement 05/24/19 [History Last Taken 05/24/19] furosemide 20 mg tablet 20 mg PO DAILY water 05/24/19 [History Last Taken 05/24/19] losartan 50 mg tablet 25 mg PO DAILY bp 05/24/19 [History Last Taken 05/24/19] metformin 1,000 mg tablet 1,000 mg PO BIDCM dm 05/24/19 [History Last Taken 05/24/19] metoprolol succinate 25 mg tablet,extended release 24 hr 25 mg PO DAILY heart 05/24/19 [History Last Taken 05/24/19] omeprazole 20 mg capsule,delayed release 20 mg PO DAILY gerd 05/24/19 [History Last Taken 05/24/19] pravastatin 40 mg tablet 40 mg PO QHS cholesterol 05/24/19 [History Last Taken 05/22/19] sertraline 25 mg tablet 25 mg PO DAILY depression 10/22/20 [History Last Taken Unknown] carbidopa 25 mg-levodopa 100 mg tablet 2 tab PO TID parkinson's 01/22/22 [History Last Taken Unknown] carbidopa ER 50 mg-levodopa 200 mg tablet,extended release 1 tab PO QHS parkinson's 01/22/22 [History Last Taken Unknown] gabapentin 300 mg capsule 300 mg .Route .COMPLEX 09/23/22 [History Last Taken Unknown] acetaminophen 325 mg tablet 650 mg (2 x 325 mg) PO Q6H PRN PRN Pain 1-10 Or Fever>100.7 #1 TAB 09/24/22 [Rx Last Taken Unknown] Allergy/AdvReac Type Severity Reaction Status Date / Time atorvastatin [From Lipitor] Allergy Rash Verified 09/23/22 11:32 codeine Allergy Rash Verified 09/23/22 11:32 Family History Father CAD (coronary artery disease) Brother CAD (coronary artery disease) Mother CAD (coronary artery disease) Surgical History History of atherectomy History of atherectomy History of prostatectomy History of three vessel coronary artery bypass Hx of heart artery stent Presence of coronary angioplasty implant and graft S/P CABG x 3 (~07/21/16) S/P PTCA (percutaneous transluminal coronary angioplasty) Social History household members: spouse housing: other details: Independent living apartment with spouse Smoking Status: Former smoker alcohol intake: current alcohol intake frequency: holidays/special occasions only substance use type: does not use caffeine: Yes Type: coffee Number of servings: 2 what type of physical activity do you participate in: none frequency: 1-2 times per week seatbelt use: always do you feel safe at home: Yes ROS ROS ED Review of Systems ROS Unobtainable: other Details: Limited due to disorientation. Patient says no to almost everything, some family members help to fill in details about current ROS. Constitutional Constitutional ED: Reports weakness; Denies chills or fever(s) Eyes Eyes: Reports blurry vision bilateral; Denies diplopia, discharge from eye(s) or eye pain ENT ENT ED: Denies discharge from eye(s), rhinorrhea or sore throat Cardiovascular Cardiovascular: Denies chest pain or palpitations Respiratory/Chest Respiratory/Chest: Reports cough; Denies dyspnea Gastrointestinal Gastrointestinal: Reports diarrhea; Denies abdominal pain, nausea or vomiting Genitourinary Genitourinary ED: Reports urinary frequency; Denies dysuria or hematuria Musculoskeletal Musculoskeletal: Denies back pain or neck pain Integumentary Denies abscess or rash Neurologic Neurologic: Reports confusion; Denies headache(s), paresthesias or weakness Psychiatric Psychiatric: Denies anxiety or suicidal thoughts EXAM Physical Exam Const Vital Signs: 09/23/22 11:33 09/23/22 11:45 09/23/22 12:58 Temperature 96.6 F L Temperature Source Temporal Pulse Rate 52 L 51 L Respiratory Rate 18 16 Respiratory Effort Normal Non-Labored Respiratory Pattern Normal Blood Pressure 201/54 H 174/71 H Blood Pressure Mean 103 105 Pulse Ox 97 96 Oxygen Delivery Method Room Air Room Air 09/23/22 14:31 Temperature Temperature Source Pulse Rate 57 L Respiratory Rate 20 H Respiratory Effort Respiratory Pattern Blood Pressure 169/64 H Blood Pressure Mean 99 Pulse Ox Oxygen Delivery Method Positive well nourished and well developed General Appearance ED: well developed and NAD HEENT Reports moist mucous membranes normocephalic and atraumatic Eyes PERRL and EOMs intact bilaterally Neck full ROM, no lymphadenopathy and supple Resp normal respiratory effort and clear to auscultation bilaterally Cardio regular rate and regular rhythm Heart Sounds: murmur systolic I/ soft GI non-tender and non-distended Auscultation: normoactive bowel sounds Palpation: soft Back/Spine no CVA tenderness General Back: other FROM Extremity normal to inspection General Extremety ED: Negative for edema, pulses abnormal or tenderness General Extremity: Negative for edema or pulses abnormal Neuro CN's II-XII intact bilaterally and no sensory deficits noted Neuro Narrative: Oriented to person and place. Occasional stuttering but no gross dysarthria/aphasia. Sensorium / Orientation: awake, alert and orientation impaired Motor Exam: strength 5/5 throughout Skin no rashes or lesions noted and no wounds MDM MDM MDM Narrative Medical decision making narrative: Generally weak patient with a fairly unremarkable exam but a high blood p ressure, which came down to 174/71 without treatment, and later 169/64. His work-up is unremarkable. I see no signs of any pulmonary or urinary infections, his CT of the head shows nothing acute I reviewed those images and I agree with the radiologist interpretation, chest x-ray 2 views negative for pneumonia on my interpretation and radiology in agreement. He does have cardiomegaly, but his lungs sound clear and he does not have symptoms of pneumonia. He has had some diarrhea according to the , his BUN-creatinine ratio was about 15 or 16, not indicative of severe hydration but he was given some IV fluids while we waited for the test given this. Hemoglobin is 11.6, his last measurement was 12.6 but that was over 3 years ago, not a major change suggesting it is related to his acute weakness. His liver enzymes today are unremarkable. Given that patient is in independent living and not able to walk right now, I think he will need a higher level of care. I discussed with social work to see if there is a way to get him to higher level within the facility he currently is then without admitting into the hospital since he does not have a major medical reason to stay acutely. Social work/case management did discuss with the patient, the facility, and the who lives with him in independent living. Currently they are on the second floor. The facility at which they are out has no availability for assisted living, just skilled which she does not require at this time. The states that if they are able to get to an independent living apartment on the first floor/ground level, she states this will be better for them for now. He is essentially medically cleared, when we walked him here, he needed some help getting from a sitting position on the side of the bed to standing, and then he was able to walk with his walker without any difficulty. The confirms that this is the major issue, and she cannot get him up and needed to call for help twice and he has had some minor falls related to this recently. I have advised that if he is looking for a higher level of care we can try to get him to assisted living but it would be a different facility and right now the is not wanting that if possible. I am okay with him going back to independent temporarily as long as the facility is able to help whenever the and patient need help, and/or getting them to a first-floor apartment for now. Case management is working on discussing with the facility and patient/ regarding which way they would prefer to go. If we are not able to get him safely back to independent living and there is no assisted living available right now anywhere locally, only then would we need to admit him to observation for PT and OT evaluations which I discussed with the patient and . History & Record Review Discussion w/independent historian: Patient and Family (, daughter) Additional record(s) reviewed:: Prior labs Lab Data Attestation: I reviewed the patient's lab results. Labs: Laboratory Results - last 24 hr 09/23/22 09/23/22 12:15 12:41 WBC 4.9 RBC 4.14 L Hgb 11.6 L Hct 36.8 L MCV 88.9 MCH 28.0 MCHC 31.5 L RDW Std Deviation 41.4 RDW Coeff of Yamil 12.7 Plt Count 153 MPV 10.2 Immature Gran % (Auto) 0.400 Neut % (Auto) 70.4 H Lymph % (Auto) 14.6 L [place] % (Auto) 13.0 H Eos % (Auto) 0.8 Baso % (Auto) 0.8 Absolute Neuts (auto) 3.5 Absolute Lymphs (auto) 0.72 L Nucleated RBC % 0 Sodium 136 Potassium 4.1 Chloride 104 Carbon Dioxide 27.0 Anion Gap 5 BUN 17 Creatinine 1.10 Estim Creat Clear Calc 53.46 Est GFR (MDRD) Af Amer 82 Est GFR (MDRD) Non-Af 68 BUN/Creatinine Ratio 15.5 Glucose 176 H Calcium 8.8 Total Bilirubin 0.30 AST 24 ALT 11 L Alkaline Phosphatase 60 Troponin I High Sens 15 Total Protein 7.0 Albumin 3.3 Globulin 3.7 Albumin/Globulin Ratio 0.9 Urine Color Yellow Urine Clarity Clear Urine pH 6.5 Ur Specific [place] 1.010 Urine Protein 15 H Urine Glucose (UA) Normal Urine Ketones Negative Urine Occult Blood Negative Urine Nitrite Negative Urine Bilirubin Negative Urine Urobilinogen Normal Ur Leukocyte Esterase 25 H Urine RBC 0 SEEN Urine WBC 0 SEEN Ur Squamous Epith Cells 0 SEEN Urine Bacteria 0 SEEN Urine Mucus 0 SEEN Radiography Diagnostic Testing: Clinical Impression(s) from Imaging Studies Brain CT 09/23/22 12:05 IMPRESSION: Chronic involutional changes of the brain. Electronically Signed: Allen Wahl MD at 13:48 EDT , Chest X-Ray 09/23/22 12:40 IMPRESSION: Cardiomegaly. The lungs are clear. No acute abnormality is seen. Electronically Signed: Allen Wahl MD at 13:49 EDT , Rhythm Strip Rhythm Strip: Sinus Rhythm Rate: 55 Ectopy: None EKG Initial EKG: Attestation: I personally reviewed and interpreted this EKG as follows: Interpretation: Sinus Rhythm and No Acute Injury Pattern Comments: Leftward axis Prior EKG tracings: available for review Prior: Unchanged Discharge Plan Triage Chief Complaint: Weakness ED Provider: Quang Thompson Dx/Rx/DC Orders Clinical Impression: Acute muscle weakness, Acute diarrhea Primary Care Provider: Eliceo Drummond Disposition Disposition: Acute Care [facility] Discharge Date/Time: 09/23/22 18:25
[2022-09-23 12:31] LABS: Absolute Lymphocyte Count 0.72 X10^3/uL (0.83-4.51); Absolute Neutrophil Count 3.5 X10^3/uL (2.0-7.7); Basophil# 0.04 X10^3/uL; Basophil% 0.8 % (0-1); Eosinophil# 0.04 X10^3/uL; Eosinophils% 0.8 % (0-5); Hematocrit 36.8 % (40-54); Hemoglobin 11.6 g/dL (13.0-16.5); Lymphocyte # 0.72 X10^3/ul (0.83-4.51); Lymphocyte % 14.6 % (19-41); Mean Corp Hgb Conc 31.5 g/dL (32-36); Mean Corpuscular Volume 88.9 fL (80-94); Mean Platelet Vol. 10.2 fl (6.2-12.0); Monocyte# 0.64 X10^3/uL; NRBC Flagged by Analyzer 0 % (0-5); Neutrophil # 3.47 X10^3/uL (2.7-7.7); Neutrophil % 70.4 % (47-70); Platelet Count 153 K/mm3 (150-450); RBC Distribution Width CV 12.7 % (11.6-14.6); RBC Distribution Width SD 41.4 fl (35.1-43.9); Red Blood Count 4.14 M/mm3 (4.6-6.2); White Blood Count 4.9 K/mm3 (4.4-11.0)
--- NOTE | 2022-09-23 12:40 | RAD_ITS ---
STUDY: X-RAY CHEST REASON FOR EXAM: Male, 82 years old. Weakness, cough TECHNIQUE: AP and lateral views of the chest. COMPARISON: Comparison is made with prior study May 24, 2019. FINDINGS: EKG electrodes are seen. The lungs are clear and expanded. There is no demonstrated pleural abnormality. Sternal cerclage wires and vascular clips are present from a prior sternotomy and coronary artery bypass graft procedure (CABG). Moderate cardiomegaly. Normal mediastinum and m[place]. Normal visualized pulmonary arteries. There is atherosclerotic calcification of the aortic arch with tortuosity. There are diffuse degenerative changes of the visualized thoracic spine. There is degenerative osteoarthritis of the bilateral shoulders. There is no demonstrated abnormality of the visualized soft tissue structures of the upper abdomen. RAD/Chest PA and Lateral IMPRESSION: Cardiomegaly. The lungs are clear. No acute abnormality is seen. Electronically Signed: Allen Wahl MD at 13:49 EDT ,
[2022-09-23 12:42] LABS: ALB/GLOB Ratio 0.9 RATIO (0.9-2.4); AST(SGOT) 24 U/L (15-37); Alanine Aminotransfer ALT/SGPT 11 U/L (16-61); Albumin, Serum 3.3 g/dL (3.2-5.0); Alkaline Phosphatase 60 U/L (45-117); Anion Gap 5 (5-15); BUN 17 mg/dL (7-18); BUN/Creat Ratio 15.5 RATIO (10-20); Calcium,Total 8.8 mg/dL (8.5-10.1); Chloride 104 mmol/L (98-107); EST Glomerular Filtration Rate 68 mL/min (>60); Est Glom Filt Rate - Afr Amer 82 mL/min (>60); Estimated Creatinine Clearance 53.46 ml/min; Globulin 3.7 g/dL (2.2-4.2); Glucose 176 mg/dL (74-106); Potassium 4.1 mmol/L (3.5-5.1); Sodium Level 136 mmol/L (136-145); Troponin-I HS 15 pg/mL (3.0-78.0)
[2022-09-23 12:53] LABS: Bacteria 0 SEEN /hpf (None Seen); Mucous, Urine 0 SEEN /hpf (<or=2+); Red Blood Cells-Urine 0 SEEN /hpf (0-5); Squamous Epithelial Cells - UA 0 SEEN /hpf (0-5); White Blood Cells 0 SEEN /hpf (0-5)
[2022-09-23 12:58] LABS: Color, Urine Yellow (Yellow); Glucose, Dipstick Normal (Normal); Ketone-Dipstick Negative (Negative); Leukocyte Esterase-Dipstick 25 /ul (Negative); Nitrite-Dipstick Negative (Negative); Occult Blood-Urine Negative /ul (Negative); Protein-Dipstick 15 mg/dl (Negative); Urine Bilirubin Dipstick Negative (Negative); Urine Clarity Clear (Clear); Urine Urobilinogen Normal (Normal); Urine pH 6.5 (5.0 - 8.0)
--- NOTE | 2022-09-23 17:16 | CM.ED ---
[employer] [facility] notified that [facility] is holding a SNF bed for patient if patient needs SNF placement. Pt is currently residing in independent living but has had weakness and falls. SW introduced self and role to patient and . reports she can no longer assist patient and he has been hurting her by falling on her. reports he cannot get out of bed. SW discussed options with family and confirmed there are no assisted living beds available at [facility]. [facility] reports nursing had felt patient would be best served by skilled bed. SW spoke with pt and who wanted to wait on their daughter to arrive. SW spoke with daughter upon her arrival. Family spoke and decided patient needs further help with weakness and falls and would like him to get therapy eval for determination then to a skilled bed at [facility]. Debra Lee CINDER BLOCK MASON, RESERVATION MANAGER
--- NOTE | 2022-09-23 17:30 | PCM.HP.STD ---
HPI - General General Date of Admission: 09/23/22 Date of Service: 09/23/22 Chief Complaint: Generalized Weakness HPI Narrative RM CHAU, is a 82 M who presented due to general weakness and some mild disorientation for the last 3 to 4 days however at the time my evaluation he was completely alert and oriented x3. He and his live together at independent living on the second floor. She reported that he had diarrhea lately however upon my exam he denied any recent diarrhea. She reports that he occasionally coughs when he tries to eat or drink things but does not have any shortness of breath or hypoxia. They presented to the emergency department today because they were unable to get him out of bed this morning without significant assistance. The patient reports that has been sleeping in a chair in the living room over the last 2 to 3 days because it is easier for him to get up out of that. The patient has no complaints overall other than generalized weakness. He states he was diagnosed with Parkinson's 3 to 4 years ago and he feels that his symptoms have progressively gotten worse. Vital signs on presentation show a temperature of 96.6, heart rate 52, blood pressure 201/54 with repeat at 169/64, respiratory rate 18 oxygen saturations are 97% on room air. CBC shows a mild anemia with a hemoglobin of 11.6 but is otherwise unremarkable. His chemistry panel is unremarkable other than a glucose of 176. His liver functions are normal. Troponin is normal at 15. His UA is on remarkable for any signs of infection. CT of the brain shows chronic involutional changes but no acute findings. Chest x-ray is unremarkable for any acute findings. EKG shows normal sinus rhythm with poor R wave progression but no ST-T wave changes concerning for acute ischemia and normal intervals. Medically speaking he was cleared for discharge however case management/social work was unable to come up with a solution for his safety at home and therefore he was admitted as an observation and will be evaluated by physical, occupational, and speech therapy and case management and social work will evaluate the patient and try to assist with further discharge needs. Patient will not qualify for skilled based on his ability to ambulate in the emergency department prior to admission. I did discuss observation status with the patient prior to admission [facility] Medical History Atherosclerotic heart disease of [place] coronary artery without angina pectoris Atypical chest pain Bladder cancer CAD (coronary artery disease) Chest pain DM (diabetes mellitus), type 2 Essential hypertension History of left heart catheterization (LHC) (~01/03/19) History of left heart catheterization (LHC) (~05/25/19) HLD (hyperlipidemia) HTN (hypertension) Influenza Murmur, cardiac Obesity (BMI 30.0-34.9) PIEDAD on CPAP Parkinson's disease Penile ca Peripheral arterial disease Prostate ca Pure hypercholesterolemia PVD (peripheral vascular disease) Unstable angina Ventricular ectopy Home Medications amlodipine 2.5 mg tablet 2.5 mg PO DAILY bp 05/24/19 [History Last Taken 05/24/19] aspirin 81 mg chewable tablet 162 mg PO DAILY@1800 [facility] 05/24/19 [History Last Taken 05/23/19] ferrous gluconate 324 mg (38 mg iron) tablet 324 mg PO BID supplement 05/24/19 [History Last Taken 05/24/19] furosemide 20 mg tablet 20 mg PO DAILY water 05/24/19 [History Last Taken 05/24/19] losartan 50 mg tablet 25 mg PO DAILY bp 05/24/19 [History Last Taken 05/24/19] metformin 1,000 mg tablet 1,000 mg PO BIDCM dm 05/24/19 [History Last Taken 05/24/19] metoprolol succinate 25 mg tablet,extended release 24 hr 25 mg PO DAILY heart 05/24/19 [History Last Taken 05/24/19] omeprazole 20 mg capsule,delayed release 20 mg PO DAILY gerd 05/24/19 [History Last Taken 05/24/19] pravastatin 40 mg tablet 40 mg PO QHS cholesterol 05/24/19 [History Last Taken 05/22/19] sertraline 25 mg tablet 25 mg PO DAILY 10/22/20 [History Last Taken Unknown] carbidopa 25 mg-levodopa 100 mg tablet 2 tab PO TID 01/22/22 [History Last Taken Unknown] carbidopa ER 50 mg-levodopa 200 mg tablet,extended release 1 tab PO QHS 01/22/22 [History Last Taken Unknown] gabapentin 300 mg capsule 300 mg .Route .COMPLEX 09/23/22 [History Last Taken Unknown] Allergy/AdvReac Type Severity Reaction Status Date / Time atorvastatin [From Lipitor] Allergy Rash Verified 09/23/22 11:32 codeine Allergy Rash Verified 09/23/22 11:32 Family History Father CAD (coronary artery disease) Brother CAD (coronary artery disease) Mother CAD (coronary artery disease) Surgical History History of atherectomy History of atherectomy History of prostatectomy History of three vessel coronary artery bypass Hx of heart artery stent Presence of coronary angioplasty implant and graft S/P CABG x 3 (~07/21/16) S/P PTCA (percutaneous transluminal coronary angioplasty) Social History household members: spouse housing: other details: Independent living apartment with spouse Smoking Status: Never smoker alcohol intake: current alcohol intake frequency: holidays/special occasions only substance use type: does not use caffeine: Yes Type: coffee Number of servings: 2 what type of physical activity do you participate in: none frequency: 1-2 times per week seatbelt use: always do you feel safe at home: Yes ROS Constitutional Constitutional: Reports weakness; Denies anorexia, change in weight, chills, fatigue, fever(s), malaise, night sweats or other Eyes Eyes: Denies blurry vision, change in eye color, change in vision, discharge from eye(s), double vision, erythema, eye pain, loss of vision or other ENT HEENT: Denies abnormal hearing, dysphagia, ear pain, epistaxis, headache(s), hearing loss, nasal congestion, nasal discharge, post nasal drip, sinus pressure, sore throat or other Cardiovascular Cardiovascular: Denies chest pain, claudication, dyspnea on exertion, edema, lightheadedness, orthopnea, palpitations, paroxysmal nocturnal dyspnea, rapid heart rate, syncope or other Respiratory/Chest Respiratory/Chest: Denies cough, dyspnea, excessive phlegm production, hemoptysis, productive cough, shortness of breath at rest, shortness of breath with exertion, wheezing or other Gastrointestinal Gastrointestinal: Denies abdominal pain, coffee ground emesis, constipation, diarrhea, dyspepsia, hematemesis, hematochezia, loose stools, melena, nausea, vomiting or other Genitourinary Genitourinary: Reports nocturia and urinary hesitancy; Denies burning urination, difficulty urinating, dysuria, hematuria, urinary frequency, urinary incontinence, urinary urgency or other Musculoskeletal Musculoskeletal: Reports back pain and joint pain; Denies arthralgias, joint stiffness, joint swelling, myalgias, neck pain or other Neurologic Neurologic: Reports tremor(s); Denies abnormal gait, abnormal speech, confusion, disequilibrium, dizziness, focal weakness, headache(s), numbness, paresthesias, seizure-like activity, seizures, syncope, tingling or other Psychiatric Psychiatric: Denies anxiety, depression, homicidal ideation, suicidal ideation or other Endocrine Endocrinology: Denies change in body appearance, cold intolerance, excessive sweating, heat intolerance, polydipsia, polyuria or other Hematologic/Lymphatic Hematologic/Lymphatic: Denies anemia, easy bleeding, easy bruising, lymphadenopathy or other Allergic/Immunologic Allergic/Immunologic: Denies rhinitis, hives, eczemia, asthma or other Vital Signs Vital Signs Vital Signs: 09/23/22 11:33 09/23/22 11:45 09/23/22 12:58 Temperature 96.6 F L Temperature Source Temporal Pulse Rate 52 L 51 L Respiratory Rate 18 16 Respiratory Effort Normal Non-Labored Respiratory Pattern Normal Blood Pressure 201/54 H 174/71 H Blood Pressure Mean 103 105 Pulse Ox 97 96 Oxygen Delivery Method Room Air Room Air 09/23/22 14:31 Temperature Temperature Source Pulse Rate 57 L Respiratory Rate 20 H Respiratory Effort Respiratory Pattern Blood Pressure 169/64 H Blood Pressure Mean 99 Pulse Ox Oxygen Delivery Method Weight Weight: 92.9 kg Body Mass Index (BMI) 29.3 Physical Exam Const alert, oriented x3, no apparent distress, healthy appearing and well nourished Constitutional Narrative: Overweight, elderly white male sitting up in bed, appears comfortable and nontoxic, patient with masked facies and bradykinesia General Appearance: cooperative HEENT normocephalic, head/scalp atraumatic and moist oral mucous membranes HEENT Narrative: Moderate hearing loss, Mallampati 3, no thrush, dentures in place Eyes PERRL, EOMs intact bilaterally and conjunctivae normal Eyes Narrative: No scleral icterus Neck no lymphadenopathy, supple, no JVD and no carotid bruits Neck Narrative: Trachea, no thyroid enlargement Resp normal respiratory effort, no retractions, no use of accessory muscles and clear to auscultation bilaterally Auscultation: Negative for rales, rhonchi or wheezes Cardio regular rhythm, S1 normal heart sound, S2 normal heart sound, no murmurs, no rub, no gallops and no clicks Cardio Narrative: Mild bradycardia GI normal to inspection, nondistended, normoactive bowel sounds, soft to palpation and non-tender Extremity no clubbing, cyanosis or edema Extremity Narrative: Pedal pulses are 2+ Skin no rashes or lesions noted, no wounds, skin turgor normal, no jaundice, no petechiae and no mottling Neuro oriented x3, moves all extremities and no focal motor deficits Neuro Narrative: Bradykinesia, response time with speech is delayed slightly however content and quality of speech are normal, significant generalized weakness noted Speech: Negative for speech normal Psych Psych Narrative: Affect is flat, eye contact is good and mood seems stable Results Lab / Micro Data 09/23/22 12:15 09/23/22 12:15 Labs: Laboratory Results - last 24 hr 09/23/22 12:15: WBC 4.9, RBC 4.14 L, Hgb 11.6 L, Hct 36.8 L, MCV 88.9, MCH 28.0, MCHC 31.5 L, RDW Std Deviation 41.4, RDW Coeff of Yamil 12.7, Plt Count 153, MPV 10.2, Immature Gran % (Auto) 0.400, Neut % (Auto) 70.4 H, Lymph % (Auto) 14.6 L, [place] % (Auto) 13.0 H, Eos % (Auto) 0.8, Baso % (Auto) 0.8, Absolute Neuts (auto) 3.5, Absolute Lymphs (auto) 0.72 L, Nucleated RBC % 0, Sodium 136, Potassium 4.1, Chloride 104, Carbon Dioxide 27.0, Anion Gap 5, BUN 17, Creatinine 1.10, Estim Creat Clear Calc 53.46, Est GFR (MDRD) Af Amer 82, Est GFR (MDRD) Non-Af 68, BUN/Creatinine Ratio 15.5, Glucose 176 H, Calcium 8.8, Total Bilirubin 0.30, AST 24, ALT 11 L, Alkaline Phosphatase 60, Troponin I High Sens 15, Total Protein 7.0, Albumin 3.3, Globulin 3.7, Albumin/Globulin Ratio 0.9 09/23/22 12:41: Urine Color Yellow, Urine Clarity Clear, Urine pH 6.5, Ur Specific [place] 1.010, Urine Protein 15 H, Urine Glucose (UA) Normal, Urine Ketones Negative, Urine Occult Blood Negative, Urine Nitrite Negative, Urine Bilirubin Negative, Urine Urobilinogen Normal, Ur Leukocyte Esterase 25 H, Urine RBC 0 SEEN, Urine WBC 0 SEEN, Ur Squamous Epith Cells 0 SEEN, Urine Bacteria 0 SEEN, Urine Mucus 0 SEEN Rhythm Strip Rhythm Strip: Sinus Rhythm Rate: 55 Ectopy: None Radiology Impression Brain CT 09/23/22 12:05 IMPRESSION: Chronic involutional changes of the brain. Electronically Signed: Allen Wahl MD at 13:48 EDT , Chest X-Ray 09/23/22 12:40 IMPRESSION: Cardiomegaly. The lungs are clear. No acute abnormality is seen. Electronically Signed: Allen Wahl MD at 13:49 EDT , Assessment & Plan Assessment/Plan (1) Generalized weakness: (2) Falls: (3) Dysphagia: PLAN: Plan Generalized weakness/falls -Sounds like patient may be experiencing some progression of his Parkinson's disease -No organic findings noted on any laboratory data or imaging -Predominant issues are with early transitions from lying to sitting and sitting to standing -Patient states once he gets moving he seems to do okay -PT/OT consultation -Case management consultation for assistance with discharge planning Dysphagia - reports that there is some intermittent coughing after eating -We will have speech therapy evaluate the patient as he would be high risk for developing dysphagia with his history of Parkinson's disease CAD/HTN/HPL -CABG X 3 DODSON to LAD, SVG to OM, SVG to RCA 07/21/16 -LHC X 1 stent to LAD ; LHC X 4 stents proximal RCA -Continue home aspirin -Continue home amlodipine -Continue home losartan -continue home metoprolol -Continue home pravastatin -Lasix is on his med rec but has not been verified we will hold until verification can be obtained DM-2 -Continue metformin 1000 mg -SSI -Accu-Cheks with meals and at at bedtime History of ventricular ectopy -Continue beta-blockade GERD -Continue PPI Parkinson's disease -Continue carbidopa levodopa Depression -Continue home sertraline PIEDAD -Continue nocturnal CPAP Obesity -BMI 29.4 -Complicates treatment, prognosis, outcomes -Recommend weight loss DVT prophylaxis -Lovenox daily CODE STATUS -Full code as per discussion in the emergency department with the patient prior to admission Charges/Coding Visit Charges Inpatient E&M: 76554 Init Hosp L2
[2022-09-23] MEDS: hydrALAZINE 20 MG/ML Vial 10 MG IV (17:44)
[2022-09-23 18:24] LABS: Magnesium 1.6 mg/dL (1.6-2.6)
[2022-09-23] MEDS: Aspirin 81 MG TAB.CHEW 162 MG PO (19:07)
[2022-09-23] MEDS: Gabapentin 300 MG Capsule PO (19:07)
[2022-09-23] MEDS: CARBIDOPA/LEVODOPA CR 50/200 Tablet PO ×2 (20:49)
[2022-09-23] MEDS: Pravastatin 40 MG Tablet PO (20:49)
[2022-09-23] MEDS: Gabapentin 600 MG Tablet PO (20:49)
[2022-09-23 21:26] LABS: Bedside Glucose 180 mg/dL (74-106)
[2022-09-23] MEDS: MELATONIN 3 MG TABLET PO (23:18)
[2022-09-24] VITALS (7 sets, daily range): BP systolic 145–179; BP diastolic 52–59; PULSE 49–59; RESP 16–24; TEMP 36.3–36.9; O2SAT 94–98
[2022-09-24] MEDS: Carbidopa/Levodopa 25/100 Tablet PO ×3 (06:35→15:58)
[2022-09-24 06:58] LABS: Bedside Glucose 141 mg/dL (74-106)
[2022-09-24] MEDS: Sertraline 50 MG Tablet 25 MG PO (07:32)
[2022-09-24] MEDS: Metoprolol(XL)Succ 25 MG Tablet PO (07:32)
[2022-09-24] MEDS: metFORMIN HCl 1,000 MG Tablet 1000 MG PO (07:32)
[2022-09-24] MEDS: amLODIPine 2.5 MG Tablet PO (07:33)
[2022-09-24] MEDS: Enoxaparin 40 MG/0.4 ML Syringe SC (07:33)
[2022-09-24] MEDS: Pantoprazole Sodium 20 MG Tablet PO (07:33)
[2022-09-24] MEDS: Losartan Potassium 25 MG Tablet PO (07:33)
--- NOTE | 2022-09-24 08:37 | PCM.PN.HOSP ---
Reason for Visit Reason for Visit: Diagnoses Dysphagia, unspecified (09/23/22) Weakness (09/23/22) Unspecified fall, initial encounter (09/23/22) Subjective Subjective Has been weaker with difficulty getting out of bed. Was spending much of time in a chair as it was easier to get out of. Objective Data Objective Data Vital Signs: Vital Signs Temp Pulse Resp BP Pulse Ox O2 Del Method 36.3 C L 59 L 18 155/53 H 95 Room Air 09/24/22 08:22 09/24/22 08:22 09/24/22 08:22 09/24/22 08:22 09/24/22 08:22 09/24/22 08:22 Oxygen Delivery Method Room Air Weight: 89.7 kg Body Mass Index (BMI) 28.3 Intake & Output: Intake and Output for Last 24 Hours 09/22/22 09/23/22 09/24/22 23:59 23:59 23:59 Intake Total 500 / 700 200 / 200 Balance 500 / 700 200 / 200 Lab / Micro Data 09/23/22 12:15 09/23/22 12:15 Labs: Laboratory Results - last 24 hr 09/23/22 12:14: Magnesium 1.6 09/23/22 12:15: WBC 4.9, RBC 4.14 L, Hgb 11.6 L, Hct 36.8 L, MCV 88.9, MCH 28.0, MCHC 31.5 L, RDW Std Deviation 41.4, RDW Coeff of Yamil 12.7, Plt Count 153, MPV 10.2, Immature Gran % (Auto) 0.400, Neut % (Auto) 70.4 H, Lymph % (Auto) 14.6 L, [place] % (Auto) 13.0 H, Eos % (Auto) 0.8, Baso % (Auto) 0.8, Absolute Neuts (auto) 3.5, Absolute Lymphs (auto) 0.72 L, Nucleated RBC % 0, Sodium 136, Potassium 4.1, Chloride 104, Carbon Dioxide 27.0, Anion Gap 5, BUN 17, Creatinine 1.10, Estim Creat Clear Calc 53.46, Est GFR (MDRD) Af Amer 82, Est GFR (MDRD) Non-Af 68, BUN/Creatinine Ratio 15.5, Glucose 176 H, Calcium 8.8, Total Bilirubin 0.30, AST 24, ALT 11 L, Alkaline Phosphatase 60, Troponin I High Sens 15, Total Protein 7.0, Albumin 3.3, Globulin 3.7, Albumin/Globulin Ratio 0.9 09/23/22 12:41: Urine Color Yellow, Urine Clarity Clear, Urine pH 6.5, Ur Specific [place] 1.010, Urine Protein 15 H, Urine Glucose (UA) Normal, Urine Ketones Negative, Urine Occult Blood Negative, Urine Nitrite Negative, Urine Bilirubin Negative, Urine Urobilinogen Normal, Ur Leukocyte Esterase 25 H, Urine RBC 0 SEEN, Urine WBC 0 SEEN, Ur Squamous Epith Cells 0 SEEN, Urine Bacteria 0 SEEN, Urine Mucus 0 SEEN 09/23/22 21:03: POC Glucose 180 H 09/24/22 06:34: POC Glucose 141 H Radiography Diagnostic Testing: Radiology Impression Brain CT 09/23/22 12:05 IMPRESSION: Chronic involutional changes of the brain. Electronically Signed: Allen Wahl MD at 13:48 EDT , Chest X-Ray 09/23/22 12:40 IMPRESSION: Cardiomegaly. The lungs are clear. No acute abnormality is seen. Electronically Signed: Allen Wahl MD at 13:49 EDT , Rhythm Strip Rhythm Strip: Sinus Rhythm Rate: 55 Ectopy: None Physical Exam Const alert and no apparent distress HEENT HEENT Narrative: myoclonus of jaw. Neuro Neuro Narrative: speech comprehensible. Sensorium / Orientation: awake and alert Assessment & Plan Assessment/Plan (1) Generalized weakness: PLAN: Sounds like patient may be experiencing some progression of his Parkinson's disease No organic findings noted on any laboratory data or imaging Predominant issues are with early transitions from lying to sitting and sitting to standing Patient states once he gets moving he seems to do okay PT/OT consultation Case management consultation for assistance with discharge planning (2) Dysphagia: QUALIFIERS: Dysphagia type: unspecified Qualified Code(s): R13.10 - Dysphagia, unspecified PLAN: reports that there is some intermittent coughing after eating We will have speech therapy evaluate the patient as he would be high risk for developing dysphagia with his history of Parkinson's disease PLAN: Plan Chronic conditions: CAD/HTN/HPL-CABG X 3 DODSON to LAD, SVG to OM, SVG to RCA 07/21/16-LHC X 1 stent to LAD ; LHC X 4 stents proximal RCA-Continue home aspirin-Continue home amlodipine-Continue home losartan-continue home metoprolol-Continue home pravastatin-Lasix is on his med rec but has not been verified we will hold until verification can be obtained [id number] metformin 1000 mg. JCG-Xunx-Hllyn with meals and at at bedtime History of ventricular ectopy-Continue beta-blockade GERD-Continue PPI Parkinson's disease-Continue carbidopa levodopa Depression-Continue home sertraline PIEDAD-Continue nocturnal CPAP Obesity-BMI 29.4Complicates treatment, prognosis, outcomes-Recommend weight loss DVT prophylaxis-Lovenox daily CODE STATUS-Full code as per discussion in the emergency department with the patient prior to admission Charges/Coding Visit Charges Inpatient E&M: 35910 Subs Hosp L2
[2022-09-24 11:24] LABS: Bedside Glucose 127 mg/dL (74-106)
--- NOTE | 2022-09-24 11:28 | CASEMGMT ---
Social Work SW spoke with pt and dgt. Pt does have a Health Care POA on file at [facility] naming pt [facility]. No living will on file. Pt dgt Elodia confirms [facility] is the HCPOA and pt has a living will. Elodia states documents have been updated and she will bring a copy of both documents to the hospital for scanning. ANNA Hernandez
--- NOTE | 2022-09-24 11:31 | CASEMGMT ---
Social Work SHAWN met with pt, pt [facility] and dgt Elodia. Pt and live in the independent living at [facility]. Pt has had a decline recently and pt is unable to provide assistance if needed. Pt is currently on the wait list for an assisted living room at [facility]. Family inquiring about skilled care at [facility]. SW explained that pt does not qualify for skilled care under his insurance but pt could possibly private pay. SW also discuss option of inpatient rehab and family would like to pursue this at [facility]. Referral to and no beds currently available. Pt and family updated and they are requesting placement at [facility] in the Transition Unit with private pay. daniel Marroquin librarian assistant updated and Referral to be sent to [facility]. SW provided pt with list of private duty caregivers. ANNA Hernandez
--- NOTE | 2022-09-24 11:58 | CASEMGMT ---
Discharge Planning Referral sent to [facility] via [facility]. Cara Moscoso, Discharge Planning Asst.
--- NOTE | 2022-09-24 15:23 | DCINST_ITS ---
Discharge Instructions Diet Discharge Diet: Low fat / Low cholesterol Follow Up Care Test Results: Test results from this visit will be discussed in further detail at your follow- up appointment, if applicable. Discharge Plan Admission Admit Date/Time: 09/23/22 17:24 Primary Reason for Your Visit: debility Attending Provider: Francis Knowles Primary Care Provider: Eliceo Drummond Consulting Providers: Stephanie Mendoza Instructions Patient Instructions: ED Weakness (Uncertain Cause) Additional Instructions / Restrictions: Workup unremarkable, no medical indication for hospital admission at this time. Discharge Orders/Prescriptions Prescriptions: New acetaminophen 325 mg Tablet 650 mg PO Q6H PRN PRN (Reason: Pain 1-10 Or Fever>100.7) Qty: 1 0RF Continued sertraline 25 mg tablet 25 mg PO DAILY carbidopa-levodopa 25-100 mg tablet 2 tab PO TID carbidopa-levodopa 50-200 mg tablet extended release 1 tab PO QHS losartan 50 MG tablet 25 mg PO DAILY pravastatin 40 MG tablet 40 mg PO QHS amlodipine 2.5 MG tablet 2.5 mg PO DAILY metformin 1,000 MG tablet 1,000 mg PO BIDCM omeprazole 20 MG capsule 20 mg PO DAILY aspirin 81 MG tablet,chewable 162 mg PO DAILY@1800 furosemide 20 MG tablet 20 mg PO DAILY ferrous gluconate 324 MG tablet 324 mg PO BID metoprolol succinate 25 MG tablet 25 mg PO DAILY gabapentin 300 mg capsule 300 mg .ROUTE .COMPLEX Rx Instructions: 300 mg Dinner; Take 1 capsule (300mg at dinner time and 2 capsules (600mg) at bed time Referrals / Follow Up: Eliceo Drummond MD [Primary Care Provider] - Disposition Disposition (needs filled in before D/C Order can be placed): Inpatient Rehab Unit/Facility
--- NOTE | 2022-09-24 15:26 | DS.PCM_ITS ---
Providers Date of Admission: 09/23/22 Primary Care Physician: Dr. Eliceo Drummond MD Reason For Visit: GENERALIZED WEAKNESS Diagnosis Discharge Diagnosis (1) Generalized weakness: Status: Acute Code(s): R53.1 - Weakness Plan: Sounds like patient may be experiencing some progression of his Parkinson's disease No organic findings noted on any laboratory data or imaging Predominant issues are with early transitions from lying to sitting and sitting to standing Patient states once he gets moving he seems to do okay PT/OT consultation Case management consultation for assistance with discharge planning Patient to be discharged to rehab today. (2) Dysphagia: Status: Acute Code(s): R13.10 - Dysphagia, unspecified Qualifiers: Dysphagia type: unspecified Qualified Code(s): R13.10 - Dysphagia, unspecified Plan: reports that there is some intermittent coughing after eating We will have speech therapy evaluate the patient as he would be high risk for developing dysphagia with his history of Parkinson's disease Plan Chronic conditions: * CAD/HTN/HPL-CABG X 3 DODSON to LAD, SVG to OM, SVG to RCA 07/21/16-LHC X 1 stent to LAD ; LHC X 4 stents proximal RCA-Continue home aspirin-Continue home amlodipine-Continue home losartan-continue home metoprolol-Continue home pravastatin-Lasix is on his med rec but has not been verified we will hold until verification can be obtained * DH-5-Pfboewwo metformin 1000 mg. QBN-Ggpx-Efmhz with meals and at at bedtime * History of ventricular ectopy-Continue beta-blockade * GERD-Continue PPI * Parkinson's disease-Continue carbidopa levodopa * Depression-Continue home sertraline * PIEDAD-Continue nocturnal CPAP * Obesity-BMI 29.4Complicates treatment, prognosis, outcomes-Recommend weight loss DVT prophylaxis-Lovenox daily CODE STATUS-Full code as per discussion in the emergency department with the patient prior to admission Medications at Discharge Home Medications amlodipine 2.5 mg tablet 2.5 mg PO DAILY bp 05/24/19 aspirin 81 mg chewable tablet 162 mg PO DAILY@1800 [facility] 05/24/19 ferrous gluconate 324 mg (38 mg iron) tablet 324 mg PO BID supplement 05/24/19 furosemide 20 mg tablet 20 mg PO DAILY water 05/24/19 losartan 50 mg tablet 25 mg PO DAILY bp 05/24/19 metformin 1,000 mg tablet 1,000 mg PO BIDCM dm 05/24/19 metoprolol succinate 25 mg tablet,extended release 24 hr 25 mg PO DAILY heart 05/24/19 omeprazole 20 mg capsule,delayed release 20 mg PO DAILY gerd 05/24/19 pravastatin 40 mg tablet 40 mg PO QHS cholesterol 05/24/19 sertraline 25 mg tablet 25 mg PO DAILY 10/22/20 carbidopa 25 mg-levodopa 100 mg tablet 2 tab PO TID 01/22/22 carbidopa ER 50 mg-levodopa 200 mg tablet,extended release 1 tab PO QHS 01/22/22 gabapentin 300 mg capsule 300 mg .Route .COMPLEX 09/23/22 acetaminophen 325 mg tablet 650 mg (2 x 325 mg) PO Q6H PRN PRN Pain 1-10 Or Fever>100.7 #1 TAB 09/24/22 Hospital Course Operations None Procedures None Summary of Care Provided Minutes Spent on Discharge: 28 Weight / BMI Weight Weight: 89.7 kg Body Mass Index (BMI) 28.3 ABG / Lab / Microbiology Data 09/23/22 12:15 09/23/22 12:15 Laboratory: Laboratory Results - last 24 hr 09/23/22 12:14: Magnesium 1.6 09/23/22 21:03: POC Glucose 180 H 09/24/22 06:34: POC Glucose 141 H 09/24/22 11:03: POC Glucose 127 H D/C Instructions Discharge Diet: Low fat / Low cholesterol Meaningful Use Info Meaningful Use Diagnoses (Choose all that apply): None applicable Discharge Plan Admission Admit Date/Time: 09/23/22 17:24 Primary Reason for Your Visit: debility Attending Provider: Francis Knowles Primary Care Provider: Eliceo Drummond Consulting Providers: Stephanie Mendoza Instructions Patient Instructions: ED Weakness (Uncertain Cause) Additional Instructions / Restrictions: Workup unremarkable, no medical indication for hospital admission at this time. Discharge Orders/Prescriptions Prescriptions: New acetaminophen 325 mg Tablet 650 mg PO Q6H PRN PRN (Reason: Pain 1-10 Or Fever>100.7) Qty: 1 0RF Continued sertraline 25 mg tablet 25 mg PO DAILY carbidopa-levodopa 25-100 mg tablet 2 tab PO TID carbidopa-levodopa 50-200 mg tablet extended release 1 tab PO QHS losartan 50 MG tablet 25 mg PO DAILY pravastatin 40 MG tablet 40 mg PO QHS amlodipine 2.5 MG tablet 2.5 mg PO DAILY metformin 1,000 MG tablet 1,000 mg PO BIDCM omeprazole 20 MG capsule 20 mg PO DAILY aspirin 81 MG tablet,chewable 162 mg PO DAILY@1800 furosemide 20 MG tablet 20 mg PO DAILY ferrous gluconate 324 MG tablet 324 mg PO BID metoprolol succinate 25 MG tablet 25 mg PO DAILY gabapentin 300 mg capsule 300 mg .ROUTE .COMPLEX Rx Instructions: 300 mg Dinner; Take 1 capsule (300mg at dinner time and 2 capsules (600mg) at bed time Referrals / Follow Up: Eliceo Drummond MD [Primary Care Provider] - Disposition Disposition (needs filled in before D/C Order can be placed): Inpatient Rehab Unit/Facility Charges/Coding Visit Charges Inpatient E&M: 52797 Disch Hosp
--- NOTE | 2022-09-24 15:27 | CASEMGMT ---
Social Work SHAWN spoke with Kimberly in Rehab and a bed is now available and pt has been accepted. Pt and dgt Elodia updated and they would like to go to inpatient rehab rather than [facility] skilled. Physician updated and pt can discharge today. Pt, dgt and Kimberly in [facility] notified of dc today and agreeable. Elodia states she will notify pt's . SHAWN updated [facility] to cancel referral. Disposition: [facility] Inpatient Rehab ANNA Hernandez
[2022-09-24 16:12] LABS: Bedside Glucose 132 mg/dL (74-106)
== END 2022-09-24 17:00 ==
LOC: ED 17:33 → MS3 17:59
PROVIDERS: Admitting Provider Internal Medicine; Emergency Provider Emergency Medicine; PCP Family Medicine
DX: I25.10 Atherosclerotic heart disease of native coronary artery without angina pectoris (principal); G20 Parkinson's disease; I73.9 Peripheral vascular disease, unspecified; E11.9 Type 2 diabetes mellitus without complications; R13.10 Dysphagia, unspecified; Z79.82 Long term (current) use of aspirin; I10 Essential (primary) hypertension; Z87.891 Personal history of nicotine dependence; Z79.84 Long term (current) use of oral hypoglycemic drugs; R19.7 Diarrhea, unspecified; M62.81 Muscle weakness (generalized); E78.00 Pure hypercholesterolemia, unspecified; G47.33 Obstructive sleep apnea (adult) (pediatric); E66.9 Obesity, unspecified; Z79.899 Other long term (current) drug therapy; Z95.1 Presence of aortocoronary bypass graft; F32.A Depression, unspecified; K21.9 Gastro-esophageal reflux disease without esophagitis
CPT/HCPCS: 96361; 96372; 96374; 99285; 70450; 71046; 80053; 81001; 82962; 83735; 84484; 85025; 92610; 93005; 94668; 97162; 97166; 99221; J7040; G0378

== ENCOUNTER 2022-09-24 17:18 | Inpatient (IN) | payer MEDICARE, OTHER, SELFPAY ==
[2022-09-24 17:49] VITALS: BP 178/60; PULSE 54; RESP 24; TEMP 36.6; O2SAT 96; BMI 28.3
[2022-09-24 20:30] VITALS: PULSE 55; RESP 18; O2SAT 96
[2022-09-24] MEDS: CARBIDOPA/LEVODOPA CR 50/200 Tablet PO (21:12)
[2022-09-24] MEDS: metFORMIN HCl 1,000 MG Tablet 1000 MG PO (21:12)
[2022-09-24] MEDS: Aspirin 81 MG TAB.CHEW 162 MG PO (21:12)
[2022-09-24] MEDS: Pravastatin 40 MG Tablet PO (21:12)
[2022-09-24] MEDS: Gabapentin 300 MG Capsule 600 MG PO (21:13)
[2022-09-24 21:54] LABS: Bedside Glucose 140 mg/dL (74-106)
[2022-09-24 22:00] VITALS: BP 108/66; PULSE 55; RESP 18; TEMP 36.3
[2022-09-25] VITALS (8 sets, daily range): BP systolic 130–171; BP diastolic 52–69; PULSE 48–69; RESP 16–26; TEMP 36.6–37.1; O2SAT 93–95
[2022-09-25] MEDS: Acetaminophen 325 MG Tablet 650 MG PO (02:00)
[2022-09-25] MEDS: Carbidopa/Levodopa 25/100 Tablet PO ×3 (05:58→17:57)
[2022-09-25] MEDS: Enoxaparin 40 MG/0.4 ML Syringe SC (05:59)
[2022-09-25 06:09] LABS: Hematocrit 34.5 % (40-54); Hemoglobin 11.1 g/dL (13.0-16.5); Mean Corp Hgb Conc 32.2 g/dL (32-36); Mean Corpuscular Volume 86.9 fL (80-94); Mean Platelet Vol. 10.7 fl (6.2-12.0); Platelet Count 148 K/mm3 (150-450); RBC Distribution Width CV 12.6 % (11.6-14.6); RBC Distribution Width SD 40.3 fl (35.1-43.9); Red Blood Count 3.97 M/mm3 (4.6-6.2)
[2022-09-25 06:47] LABS: ALB/GLOB Ratio 0.9 RATIO (0.9-2.4); AST(SGOT) 20 U/L (15-37); Alanine Aminotransfer ALT/SGPT 10 U/L (16-61); Alkaline Phosphatase 55 U/L (45-117); Anion Gap 7 (5-15); BUN 19 mg/dL (7-18); BUN/Creat Ratio 20.5 RATIO (10-20); Calcium,Total 8.6 mg/dL (8.5-10.1); Chloride 105 mmol/L (98-107); Creatinine, Serum 0.93 mg/dL (0.70-1.30); EST Glomerular Filtration Rate 83 mL/min (>60); Est Glom Filt Rate - Afr Amer 100 mL/min (>60); Estimated Creatinine Clearance 63.23 ml/min; Globulin 3.4 g/dL (2.2-4.2); Glucose 107 mg/dL (74-106); Magnesium 1.8 mg/dL (1.6-2.6); Phosphorus 4.4 mg/dL (2.5-4.9); Potassium 3.9 mmol/L (3.5-5.1); Protein, Total 6.4 g/dL (6.4-8.2); Sodium Level 137 mmol/L (136-145)
[2022-09-25 07:21] LABS: Bedside Glucose 128 mg/dL (74-106)
[2022-09-25] MEDS: metFORMIN HCl 1,000 MG Tablet 1000 MG PO ×2 (08:57→17:57)
[2022-09-25] MEDS: Losartan Potassium 25 MG Tablet PO (08:57)
[2022-09-25] MEDS: Sertraline 50 MG Tablet 25 MG PO (08:58)
[2022-09-25] MEDS: amLODIPine 2.5 MG Tablet PO (08:58)
[2022-09-25] MEDS: Furosemide 20 MG Tablet PO (08:58)
[2022-09-25] MEDS: Pantoprazole Sodium 20 MG Tablet PO (08:59)
--- NOTE | 2022-09-25 11:14 | HP.PCM_ITS ---
HPI - General General Date of Admission: 09/24/22 Date of Service: 09/25/22 Chief Complaint: Debility with generalized due to Parkinson's disease. HPI Narrative RM CHAU, is a 82 YO M with a PMH of PD, CAD, diabetes mellitus type 2, e ssential hypertension, hyperlipidemia,depression, history of penile cancer, peripheral arterial disease, history of prostate cancer and hx of ventricular ectopy who presented to the ED at [facility] on with complaints of increased generalized weakness and disorientation for the preceding 3 to 4 days. He was unable to get out of bed without assist of 2 on the morning of presentation to the emergency room. He had been sleeping in the recliner for the preceding few days because it was easier for him to get up. Work-up in the emergency department was unremarkable. He was admitted to the hospitalist service to arrange for transfer to an acute rehab unit or SNF for therapy to increase strength to hopefully allow him to return to independent living at [facility] with his . He was transferred to the acute inpatient rehab unit at [facility] on 09/24/2022 for 3 hours of therapy daily to restore function/independence to allow him to return to independent living. All notes, lab and tests done in the ED and in the hospital were reviewed personally. Afebrile VSS-heart rate has ranged from 48-60. Blood pressure since the a.m. on 09/24/2022 has ranged from 108/66 to 179/59. Maintaining appropriate oxygen saturation on RA Oral intake - ate 75-100% of his lunch today. Discussed with nursing - nursing tells me that he is restless and night and gets up often to urinate. UA on 09/23/2022 was negative for white blood cells or bacteria. Reviewed the PT/OT/ST notes Medication list reviewed. All lab drawn this morning was personally reviewed. White blood cell count is normal at 7.0. Hemoglobin is 11.1 and reviewing CBCs from the past few years show that he has primarily been anemic since 2017. Platelets are low at 148,000 and have been borderline low since 2019. Sodium and potassium are both within normal limits. The BUN is elevated at 19 and the creatinine is 0.93 which is within his baseline. Mag is 1.8 and the phosphorus is 4.4. LFTs are unremarkable. Having a frequent cough this morning. Tells me this is chronic. Chest x-ray at admission to the emergency room showed no infiltrates, pleural effusions or pulmonary vascular congestion. The heart appears enlarged on the PA and lateral chest x-ray to me. There is a very large gastric bubble. Rm is pretty on top of things mentally and he tells me that this week he developed cough with increased post nasal drip and rhinorrhea and has a sore throat. He has had bronchitis in the past and this is how he feels. He has never had PFT's. Smoked for a long time in the past and quit 15 yers ago. Gets SOB with exertion. The night prior to not being able to get out of bed he said he was able to get up and go to the BR by himself and suddenly the next morning he couldn't. Denies CP and he is not able to get any sputum up. COUNTS INCLUDE 234 BEDS AT THE [facility] Medical History (Updated 09/25/22 @ 12:[address] Priscilla Rod, ) Atherosclerotic heart disease of [place] coronary artery without angina pectoris Bladder cancer Concentric left ventricular hypertrophy COPD (chronic obstructive pulmonary disease) Depression DM (diabetes mellitus), type 2 Essential hypertension Former smoker, stopped smoking many years ago History of left heart catheterization (LHC) (~01/03/19) History of left heart catheterization (LHC) (~05/25/19) HLD (hyperlipidemia) Mild left atrial enlargement Murmur, cardiac Normochromic normocytic anemia NSTEMI (non-ST elevated myocardial infarction) PIEDAD on CPAP Parkinson's disease Penile ca Peripheral arterial disease Prostate ca Unstable angina Urinary urgency Ventricular ectopy Home Medications amlodipine 2.5 mg tablet 2.5 mg PO DAILY bp 05/24/19 [History Last Taken ] aspirin 81 mg chewable tablet 162 mg PO DAILY@1800 [facility] 05/24/19 [History Last Taken 05/23/19] ferrous gluconate 324 mg (38 mg iron) tablet 324 mg PO BID supplement 05/24/19 [History Last Taken 05/24/19] furosemide 20 mg tablet 20 mg PO DAILY water 05/24/19 [History Last Taken 05/24/19] losartan 50 mg tablet 25 mg PO DAILY bp 05/24/19 [History Last Taken 05/24/19] metformin 1,000 mg tablet 1,000 mg PO BIDCM dm 05/24/19 [History Last Taken 05/24/19] metoprolol succinate 25 mg tablet,extended release 24 hr 25 mg PO DAILY heart 05/24/19 [History Last Taken 05/24/19] omeprazole 20 mg capsule,delayed release 20 mg PO DAILY gerd 05/24/19 [History Last Taken 05/24/19] pravastatin 40 mg tablet 40 mg PO QHS cholesterol 05/24/19 [History Last Taken 05/22/19] sertraline 25 mg tablet 25 mg PO DAILY depression 10/22/20 [History Last Taken Unknown] carbidopa 25 mg-levodopa 100 mg tablet 2 tab PO TID parkinson's 01/22/22 [History Last Taken Unknown] carbidopa ER 50 mg-levodopa 200 mg tablet,extended release 1 tab PO QHS parkinson's 01/22/22 [History Last Taken Unknown] gabapentin 300 mg capsule 300 mg .Route .COMPLEX 09/23/22 [History Last Taken Unknown] acetaminophen 325 mg tablet 650 mg (2 x 325 mg) PO Q6H PRN PRN Pain 1-10 Or Fever>100.7 #1 TAB 09/24/22 [Rx Last Taken Unknown] Allergy/AdvReac Type Severity Reaction Status Date / Time atorvastatin [From Lipitor] Allergy Rash Verified 09/23/22 11:32 codeine Allergy Rash Verified 09/23/22 11:32 Family History Father CAD (coronary artery disease) Brother CAD (coronary artery disease) Mother CAD (coronary artery disease) Surgical History (Updated 09/25/22 @ 11:[address] Priscilla Rod DO) History of atherectomy History of prostatectomy History of three vessel coronary artery bypass Hx of heart artery stent Presence of coronary angioplasty implant and graft S/P CABG x 3 (~07/21/16) S/P PTCA (percutaneous transluminal coronary angioplasty) Social History household members: spouse housing: other details: Independent living apartment with spouse Smoking Status: Former smoker alcohol intake: current alcohol intake frequency: holidays/special occasions only substance use type: does not use caffeine: Yes Type: coffee Number of servings: 2 what type of physical activity do you participate in: none frequency: 1-2 times per week seatbelt use: always do you feel safe at home: Yes ROS Constitutional Constitutional: Reports fatigue and weakness; Denies anorexia, change in weight, chills, fever(s) or night sweats Eyes Eyes: Denies blurry vision, change in vision, eye pain or loss of vision ENT HEENT: Reports nasal congestion, nasal discharge, post nasal drip, rhinorrhea and sore throat; Denies abnormal hearing, dysphagia, headache(s), hearing loss or odynophagia Cardiovascular Cardiovascular: Reports dyspnea on exertion; Denies chest pain, edema, lightheadedness, orthopnea, palpitations, paroxysmal nocturnal dyspnea or syncope Respiratory/Chest Respiratory/Chest: Reports cough, difficulty clearing secretions, dry cough, excessive phlegm production and shortness of breath with exertion; Denies dyspnea, shortness of breath at rest or wheezing Gastrointestinal Gastrointestinal: Denies abdominal pain, constipation, diarrhea, dyspepsia, hematemesis, hematochezia, nausea or vomiting Genitourinary Genitourinary: Reports nocturia and urinary frequency; Denies dysuria, hematuria, urinary hesitancy, urinary incontinence or urinary urgency Musculoskeletal Musculoskeletal: Denies back pain, joint pain, joint swelling or neck pain Integumentary Integumentary: Reports dry skin; Denies jaundice, skin ulcer, unusual bruising or wounds Neurologic Neurologic: Denies confusion, disequilibrium, dizziness, focal weakness, headache(s), paresthesias, seizures or tremor(s) Psychiatric Psychiatric: Denies anxiety, depression, homicidal ideation or suicidal ideation Endocrine Endocrinology: Denies change in body appearance, polydipsia or polyuria Hematologic/Lymphatic Hematologic/Lymphatic: Denies easy bleeding, easy bruising or lymphadenopathy Allergic/Immunologic Allergic/Immunologic: Reports rhinitis; Denies eczemia or asthma Vital Signs Vital Signs Vital Signs: 09/24/22 17:49 09/24/22 22:00 09/24/22 22:00 Temperature 97.8 F 97.3 F L Temperature Source Oral Temporal Pulse Rate 54 L 55 L Pulse Strength Normal (2+) Respiratory Rate 24 H 18 Respiratory Effort Respiratory Depth Respiratory Pattern Blood Pressure 178/60 H 108/66 Blood Pressure Mean 99 80 Blood Pressure Source Monitor Monitor Blood Pressure Position Semi-Fowlers Semi-Fowlers Blood Pressure Location Right Arm Right Arm Pulse Ox 96 Oxygen Delivery Method Room Air Room Air 09/24/22 20:30 09/25/22 07:44 09/25/22 09:10 Temperature 98.8 F Temperature Source Oral Pulse Rate 55 L 50 L 48 L Pulse Strength Respiratory Rate 18 16 Respiratory Effort Normal Non-Labored Respiratory Depth Normal Respiratory Pattern Normal Blood Pressure 160/58 H 140/52 H Blood Pressure Mean 92 Blood Pressure Source Monitor Blood Pressure Position Semi-Fowlers Blood Pressure Location Right Arm Pulse Ox 96 95 Oxygen Delivery Method Room Air Room Air Weight Weight: 197 lb 12.074 oz Body Mass Index (BMI) 28.3 Physical Exam Const alert, oriented x3 and no apparent distress Constitutional Narrative: Sitting in the recliner at the bedside. Some difficulty with word finding when I am talking with him. He has a weak cough and he is clearing his throat often. He is pursed lip breathing. Family is supposed to be bringing in his CPAP machine. Flat affect. Masked facies. Voice projects well. General Appearance: cooperative Nutritional Appearance: overweight HEENT normocephalic, head/scalp atraumatic and hearing grossly normal bilaterally HEENT Narrative: MM are moist. No thrush. Eyes EOMs intact bilaterally, conjunctivae normal and no scleral icterus Eyes Narrative: No discharge from the eyes and no mattering of the eyelids. Decreased blink. Neck no lymphadenopathy and supple Neck Narrative: BL carotid bruits, L>R General: trachea midline Chest Chest: symmetrical chest wall rise Resp Resp Narrative: Able to take a pretty good deep breath. No cough with deep breathing. Scatte red inspiratory wheezing. No rales. +pursed lip breathing. No tachypneic. Fair air exchange.....mildly decreased. Breathing is not labored. Effort and Inspection: able to speak in complete sentences Cardio regular rhythm Cardio Narrative: Bradycardic. He has a systolic MM at the second RICS with radiation to the LLSB and apex. There is also a soft systolic MM in the L axillary area. GI normal to inspection, nondistended, normoactive bowel sounds, soft to palpation and non-tender GI Narrative: no guarding with palpation. no CVA tenderness Narrative: Denies N/V. Denies dysuria. PVR's are 0. Extremity normal to inspection, normal capillary refill, no calf tenderness and no pedal edema Skin no wounds and no jaundice Skin Narrative: no rashes General Skin Exam: no breakdown Neuro oriented x3, CN's II-XII intact bilaterally and moves all extremities Neuro Narrative: He has a masked face. No tremors. Some rigidity of the muscles. Voice projects well. Psych mental status grossly normal, thought process normal and cooperative Psych Narrative: Flat affect.....may be due to PD. Tells me that when he moved to [facility] he was crying a lot and Dr. Khan put him on Sertraline. He says he is no longer crying and his appetite is good. He does not sleep well because he gets up to urinate frequently. The urinary frequency started after the surgery for bl adder and penile CA. Appearance: grossly normal, appropriate and well kempt Attitude: calm Activity / Motor Behavior: appropriate eye contact; Negative for fidgetting, disorganized or restless Speech: normal speech Mood & Affect: flat affect Results Lab / Micro Data 09/25/22 05:41 09/25/22 05:41 Labs: Laboratory Results - last 24 hr 09/24/22 21:20: POC Glucose 140 H 09/25/22 05:41: WBC 7.0, RBC 3.97 L, Hgb 11.1 L, Hct 34.5 L, MCV 86.9, MCH 28.0, MCHC 32.2, RDW Std Deviation 40.3, RDW Coeff of [place] 12.6, Plt Count 148 L, MPV 10.7, Sodium 137, Potassium 3.9, Chloride 105, Carbon Dioxide 25.0, Anion Gap 7, BUN 19 H, Creatinine 0.93, Estim Creat Clear Calc 63.23, Est GFR (MDRD) Af Amer 100, Est GFR (MDRD) Non-Af 83, BUN/Creatinine Ratio 20.5 H, Glucose 107 H, Calcium 8.6, Phosphorus 4.4, Magnesium 1.8, Total Bilirubin 0.30, AST 20, ALT 10 L, Alkaline Phosphatase 55, Total Protein 6.4, Albumin 3.0 L, Globulin 3.4, Albumin/Globulin Ratio 0.9 09/25/22 06:07: POC Glucose 128 H Assessment & Plan Assessment/Plan (1) Debility: (2) Generalized weakness: (3) Dysphagia: QUALIFIERS: Dysphagia type: unspecified Qualified Code(s): R13.10 - Dysphagia, unspecified (4) Acute bronchitis: QUALIFIERS: Bronchitis organism: unspecified organism Qualified Code(s): J20.9 - Acute bronchitis, unspecified (5) COPD with acute exacerbation: (6) Falls: (7) Parkinson's disease: (8) Normochromic normocytic anemia: PLAN: Chronic (9) Thrombocytopenia: (10) Depression: (11) PIEDAD on CPAP: (12) Pure hypercholesterolemia: (13) Essential hypertension: (14) DM (diabetes mellitus), type 2: QUALIFIERS: Diabetes mellitus complication status: with other specified complication Diabetes mellitus usp insulin use: without terminal operations supervisor use Qualified Code(s): E11.69 - Type 2 diabetes mellitus with other specified complication (15) Urinary urgency: (16) Former smoker, stopped smoking many years ago: (17) Bradycardia: (18) Concentric left ventricular hypertrophy: PLAN: Plan PLAN PT for gait stability OT for ADL's ST for evaluation Analgesics as needed Bowel protocol Fall precautions Assess for Anxiety/Depression GI prophylaxis with pantoprazole DVT prophylaxis with enoxaparin Follow up with PCP, cardiology and Dr. Khan following DC from IP Rehab AM lab including CMP, CBC, Mag and Phos was personally reviewed Check a HGBA1C Albuterol/ipratropium aerosols every 4 hours while awake and albuterol every 2 hours as needed wheezing/shortness of breath Atrovent nasal spray 2 sprays twice daily for rhinorrhea Try Elavil 10 mg p.o. nightly to see if it decreases the number of times he has to urinate at night to improve his quality of sleep Family will bring in his CPAP unit Hold metoprolol if the heart rate is less than 45 Orthostatic vital signs today Recommend PFTs following discharge from acute rehab and then follow-up with pulmonary medicine Charges/Coding Visit Charges Inpatient E&M: 75759 Init Hosp L3
[2022-09-25] MEDS: Ascorbic Acid 500 MG Tablet 1000 MG PO (11:27)
[2022-09-25] MEDS: Ferrous Gluconate 324 MG Tablet PO (11:27)
[2022-09-25 11:50] LABS: Bedside Glucose 129 mg/dL (74-106)
[2022-09-25 12:37] LABS: Hemoglobin A1c 6.3 % (3.8-5.6)
--- NOTE | 2022-09-25 13:02 | REHABEVAL_ITS ---
Admission Information Primary Diagnosis:: Debility due to generalized weakness due to acute exacerbation of COPD Status Changes from Prescreening?: Medical (wheezing, pursed lip breathing, rhinorrhea and VENTURA due to acute bronchitis and exacerbation COPD.) Actual Problem List:: Depression, Alteration in Sleep, Mobility Impaired, Self Care Deficit, BP, Hypertension, Alteration/ Air Exchange and Alteration-Leisure Activ. Potential Problem List:: DVT, Bleeding, Infection, UTI, Aspiration, Falls, Skin Integrity and Depression Risk of Complications DVT: LMWH and TRACY Hose Bleeding: Monitor Lab Values, Nursing to Teach Precautions for anti-coagulation therapy., Wound, if applicable, to be assessed every shift. and Stroke patients assessed for lethargy or change in status. Infection: Clinical Staff to Monitor for S/S of infection: and S/S of infection include fever, redness, warmth, etc. Urinary Tract Infection: Monitor for frequency, burning, discomfort, or incontinence. and Nursing will obtain urine sample for urinalysis and C&S when ordered. Aspiration: Clinical staff will monitor for coughing, drooling, congestion., Speech will evaluate swallowing and dsyphasia. and Nursing will monitor patient swallowing during meals. Falls: Patient will be evaluated for Fall Precautions and Patient will be placed on Fall Precautions as indicated per protocol. Skin Breakdown: Nursing will assess skin daily using assessment tool. and Nursing will place on Skin Breakdown Precautions as indicated. Pain: Clinical staff will assess patient's pain level per protocol., Medications will be given, if needed, and the pain level reassessed. and Other methods: Massage, distraction, decrease stimulus, etc. used PRN. Plan of Care Patient requires physician specializing in physical medicine and rehab oversight to provide close medical supervision of rehab issues including: Pain Management, Sleep Problems, Bowel and Bladder, Medical and co-morbidity Management, DVT prophylaxis, Rehabilitation Leadership and Coordination of treatment team Patient needs Physical Therapy: For a minimum of 1 hour and At least 5 out of 7 days Patient needs Physical Therapy to improve:: Mobility, Strengthening, Transfers, Stretching, ROM, Endurance, Stairs, Gait and Balance Patient needs Occupational Therapy: For a minimum of 1 hour and At least 5 out of 7 days Patient needs Occupational Therapy to improve ADL's incl.: Eating, Grooming, Bathing, Dressing, Toileting, Toilet transfers, Community Reintegration, Higher functioning activities, Household tasks, Adaptive Equipment, Splinting and Other activities as determined Patient requires speech therapy: For a minimum of 1 hour and At least 5 out of 7 days Patient requires speech therapy for: Swallowing, Cognition, Language Skills and Compensatory Strategies Patient requires 24/ Rehabilitation Nursing for: Pain Issues, Identifying and preventing risk factors, Monitoring and reporting current medical conditions, Assisting with ambulation, transfer, and all ADL's, Teaching patients about disease process and medications, Family teaching, Providing safe environment, Bowel and Bladder Issues, Skin integrity and Medication Management Patient needs Vehicle Insurance Agent/ Case Management for: Discharge Planning, Arranging Home Equipment or Services and Family Interventions Patient needs Dietary and Nutrition Services for: Adequate Nutrition, Nutritional Supplements and Nutritional Education Goals Patient will remain: free from falls Patient will perform bed mobility at: MOD I level of assist. Patient will complete transfers from bed to chair at: MOD I level of assist. Patient will ambulate: - (800 feet with a rollator on various surfaces to allow patient to ambulate to and from his dining room at home.) Patient will complete upper body dressing at: MOD I level of assist. Patient will complete lower body dressing at: MOD I level of assist. (With adaptive equipment as needed.) Patient will complete toileting at: MOD I level of assist. Patient will perform bathing at: - (Supervision) Patient will complete grooming at: MOD I level of assist. Patient will complete home management skills at: MOD I level of assist. Patient will achieve: - (1 curb step at contact-guard assist with rollator walker.) Patient will have pain level of: of 3 or less Patient's skin will: remain intact Patient will receive: adequate nutrition. Discharge Planning Pt Prognosis for Sig. Practical Improv. w/in Reasonable Time: Good Estimated Length of stay (days): 21 Anticipated D/C Destination: Home (Will return home to [facility] with continued therapy at [facility] and then participate in their PD program ) Was Preadmission Assessment Accurate?: Yes
[2022-09-25 17:16] LABS: Bedside Glucose 116 mg/dL (74-106)
[2022-09-25] MEDS: Aspirin 81 MG TAB.CHEW 162 MG PO (17:57)
[2022-09-25] MEDS: Gabapentin 300 MG Capsule PO (17:58)
[2022-09-25] MEDS: Ipratropium/Albuterol Sulfate 3 ML AMPUL.NEB INHALATION (19:17)
[2022-09-25] MEDS: Ipratropium Bromide 0.06% NASAL SPRAY 2 SPRAY NASAL (20:49)
[2022-09-25] MEDS: CARBIDOPA/LEVODOPA CR 50/200 Tablet PO (20:50)
[2022-09-25] MEDS: Gabapentin 300 MG Capsule 600 MG PO (20:50)
[2022-09-25] MEDS: Pravastatin 40 MG Tablet PO (20:50)
[2022-09-25] MEDS: Nystatin Powder 15gm Bottle 1 APPLIC TOPICAL (20:51)
[2022-09-25] MEDS: Amitriptyline 10 MG Tablet PO (20:51)
[2022-09-25 21:19] LABS: Bedside Glucose 129 mg/dL (74-106)
[2022-09-26] MEDS: Enoxaparin 40 MG/0.4 ML Syringe SC (05:19)
[2022-09-26] MEDS: Carbidopa/Levodopa 25/100 Tablet PO ×3 (06:03→16:49)
[2022-09-26] MEDS: Ipratropium/Albuterol Sulfate 3 ML AMPUL.NEB INHALATION ×2 (06:51→19:28)
[2022-09-26 06:52] VITALS: PULSE 61; RESP 20; O2SAT 94
[2022-09-26 07:11] LABS: Bedside Glucose 127 mg/dL (74-106)
[2022-09-26 08:11] VITALS: BP 108/54; PULSE 62; RESP 18; TEMP 36; O2SAT 93
[2022-09-26 09:07] VITALS: PULSE 62
[2022-09-26] MEDS: Losartan Potassium 25 MG Tablet PO (09:07)
[2022-09-26] MEDS: Sertraline 50 MG Tablet PO (09:07)
[2022-09-26] MEDS: Pantoprazole Sodium 20 MG Tablet PO (09:07)
[2022-09-26] MEDS: Metoprolol(XL)Succ 25 MG Tablet PO (09:07)
[2022-09-26] MEDS: Ipratropium Bromide 0.06% NASAL SPRAY 2 SPRAY NASAL ×2 (09:07→20:47)
[2022-09-26] MEDS: Furosemide 20 MG Tablet PO (09:07)
[2022-09-26] MEDS: amLODIPine 2.5 MG Tablet PO (09:07)
[2022-09-26] MEDS: metFORMIN HCl 1,000 MG Tablet 1000 MG PO ×2 (09:07→16:50)
[2022-09-26] MEDS: Nystatin Powder 15gm Bottle 1 APPLIC TOPICAL ×2 (09:11→20:48)
[2022-09-26 11:38] LABS: Bedside Glucose 142 mg/dL (74-106)
[2022-09-26] MEDS: Ascorbic Acid 500 MG Tablet 1000 MG PO (12:08)
[2022-09-26] MEDS: Ferrous Gluconate 324 MG Tablet PO (12:09)
--- NOTE | 2022-09-26 12:40 | PCM.PROGNOTE ---
Subjective Subjective MentalAfebrile VSS Maintaining appropriate oxygen saturation on RA Oral intake is good. Eating 75 to 100% of his meals. BS record was reviewed and BS's are well controlled. Hemoglobin A1c is 6.3. Will decrease Accu-Cheks to twice daily Discussed with nursing - no problems that need addressed. Slept better last night with the addition of Elavil at HS. Only got up once to urinate last night and he wore his CPAP all night. Nursing reports he is not pursed lip breathing today. They say his cough is not associated with eating, it is random. Reviewed the PT/OT/ST notes Medication list reviewed. Respiratory panel was negative. Cough is looser today. Roberto tells me his cough and sore throat are getting better. He denies shortness of breath today. He feels the aerosol helping and he feels less short of breath. He is no longer pursed lip breathing and he is not tachypneic. He denies chest pain, night sweats, shaking chills, palpitations, nausea/vomiting/abdominal pain, dysuria, calf tenderness and lightheadedness. Roberto tells me that he slept much better last night and actually feels rested today. Objective Data Objective Data Vital Signs: Vital Signs Temp Pulse Resp BP Pulse Ox O2 Del Method 96.8 F L 62 18 108/54 L 93 Room Air 09/26/22 08:11 09/26/22 09:07 09/26/22 08:11 09/26/22 08:11 09/26/22 08:11 09/26/22 08:11 Oxygen Delivery Method Room Air Weight: 197 lb 12.074 oz Body Mass Index (BMI) 28.3 Intake & Output: Intake and Output for Last 24 Hours 09/24/22 09/25/22 09/26/22 23:59 23:59 23:59 Intake Total 100 / 100 360 / 360 Output Total 450 / 450 500 / 500 600 / 600 Balance -350 / -350 -500 / -500 -240 / -240 Lab / Micro Data 09/25/22 05:41 09/25/22 05:41 Labs: Laboratory Results - last 24 hr 09/25/22 16:52: POC Glucose 116 H 09/25/22 21:01: POC Glucose 129 H 09/26/22 06:07: POC Glucose 127 H 09/26/22 11:21: POC Glucose 142 H Micro: Microbiology 09/25/22 16:05 Mucosa - Nose Respiratory Panel (PCR) - Final Physical Exam Const alert and no apparent distress General Appearance: cooperative HEENT moist oral mucous membranes Resp normal respiratory effort and no use of accessory muscles Resp Narrative: Much better air exchange than yesterday. Still with some coarse scattered wheezing. Not coughing with deep breaths today. Tells me the rhinorrhea is better. Effort and Inspection: Negative for tachypneic or labored Cardio regular rate, regular rhythm and no gallops GI normal to inspection, nondistended, normoactive bowel sounds, non-tender and non-distended GI Narrative: no guarding with palpation Extremity Negative for no calf tenderness General Extremity: Negative for edema Skin General Skin Exam: no breakdown Rashes: no rashes Psych affect normal Assessment & Plan Assessment/Plan (1) Debility: (2) Generalized weakness: (3) Dysphagia: QUALIFIERS: Dysphagia type: unspecified Qualified Code(s): R13.10 - Dysphagia, unspecified (4) Acute bronchitis: QUALIFIERS: Bronchitis organism: unspecified organism Qualified Code(s): J20.9 - Acute bronchitis, unspecified (5) COPD with acute exacerbation: (6) Falls: (7) Parkinson's disease: (8) Normochromic normocytic anemia: (9) Thrombocytopenia: (10) Depression: (11) PIEDAD on CPAP: (12) Pure hypercholesterolemia: (13) Essential hypertension: (14) DM (diabetes mellitus), type 2: QUALIFIERS: Diabetes mellitus complication status: with other specified complication Diabetes mellitus intermediate insulin use: without shipyard painter use Qualified Code(s): E11.69 - Type 2 diabetes mellitus with other specified complication (15) Urinary urgency: (16) Former smoker, stopped smoking many years ago: (17) Bradycardia: (18) Concentric left ventricular hypertrophy: PLAN: Plan 1. Continue therapy 2. No change to the drug regimen today. Elavil seems to be helping with his sleeping and with the frequency of urination at night. Roberto's daughter Elodia tells me that recently he gets agitated very easily and he is not wanting to do the things that he knows he should do, such as attending the Parkinson's exercise classes at [facility]. He wants to mostly sit around home. He had a big change in his life recently when he and Mercy moved into independent living at [facility] and out of their house. He is no longer crying but continues to have some symptoms of undertreated depression. Sertraline was increased to 50 mg yesterday and the Elavil should help as well. He is not sleeping well at night and has chronically been tired and certainly improved sleep would help with depression. Charges/Coding Visit Charges Inpatient E&M: 58097 Subs Hosp L2
[2022-09-26 16:48] LABS: Bedside Glucose 130 mg/dL (74-106)
[2022-09-26] MEDS: Gabapentin 300 MG Capsule PO (16:50)
[2022-09-26] MEDS: Aspirin 81 MG TAB.CHEW 162 MG PO (16:50)
[2022-09-26 19:28] VITALS: PULSE 60; RESP 22
[2022-09-26 19:30] VITALS: BP 148/59; PULSE 65; RESP 18; TEMP 36.6; O2SAT 94
[2022-09-26] MEDS: Pravastatin 40 MG Tablet PO (20:48)
[2022-09-26] MEDS: CARBIDOPA/LEVODOPA CR 50/200 Tablet PO (20:49)
[2022-09-26] MEDS: Amitriptyline 10 MG Tablet PO (20:49)
[2022-09-26] MEDS: Gabapentin 300 MG Capsule 600 MG PO (20:52)
[2022-09-27] VITALS (7 sets, daily range): BP systolic 117–130; BP diastolic 53–73; PULSE 53–88; RESP 14–22; TEMP 36.6–36.8; O2SAT 92–100
[2022-09-27] MEDS: Metoprolol(XL)Succ 25 MG Tablet PO (07:09)
[2022-09-27] MEDS: amLODIPine 2.5 MG Tablet PO (07:09)
[2022-09-27] MEDS: metFORMIN HCl 1,000 MG Tablet 1000 MG PO ×2 (07:10→16:59)
[2022-09-27] MEDS: Furosemide 20 MG Tablet PO (07:10)
[2022-09-27] MEDS: Sertraline 50 MG Tablet PO (07:10)
[2022-09-27] MEDS: Pantoprazole Sodium 20 MG Tablet PO (07:10)
[2022-09-27] MEDS: Losartan Potassium 25 MG Tablet PO (07:10)
[2022-09-27] MEDS: Ipratropium Bromide 0.06% NASAL SPRAY 2 SPRAY NASAL ×2 (07:10→21:05)
[2022-09-27] MEDS: Enoxaparin 40 MG/0.4 ML Syringe SC (07:10)
[2022-09-27] MEDS: Carbidopa/Levodopa 25/100 Tablet PO ×3 (07:10→16:59)
[2022-09-27] MEDS: Nystatin Powder 15gm Bottle 1 APPLIC TOPICAL ×2 (07:12→21:06)
[2022-09-27 07:50] LABS: Bedside Glucose 134 mg/dL (74-106)
[2022-09-27] MEDS: Ipratropium/Albuterol Sulfate 3 ML AMPUL.NEB INHALATION ×4 (08:02→19:15)
[2022-09-27] MEDS: Ferrous Gluconate 324 MG Tablet PO (11:48)
[2022-09-27] MEDS: Ascorbic Acid 500 MG Tablet 1000 MG PO (11:48)
[2022-09-27 16:44] LABS: Bedside Glucose 132 mg/dL (74-106)
[2022-09-27] MEDS: Gabapentin 300 MG Capsule PO (16:59)
[2022-09-27] MEDS: Aspirin 81 MG TAB.CHEW 162 MG PO (16:59)
[2022-09-27] MEDS: Gabapentin 300 MG Capsule 600 MG PO (21:05)
[2022-09-27] MEDS: CARBIDOPA/LEVODOPA CR 50/200 Tablet PO (21:06)
[2022-09-27] MEDS: Pravastatin 40 MG Tablet PO (21:06)
[2022-09-27] MEDS: Amitriptyline 10 MG Tablet PO (21:06)
[2022-09-28] MEDS: Acetaminophen 325 MG Tablet 650 MG PO ×2 (00:22→22:06)
[2022-09-28] MEDS: Enoxaparin 40 MG/0.4 ML Syringe SC (06:12)
[2022-09-28] MEDS: Carbidopa/Levodopa 25/100 Tablet PO ×3 (06:13→16:28)
[2022-09-28 07:06] LABS: Bedside Glucose 111 mg/dL (74-106)
[2022-09-28 07:17] VITALS: PULSE 70; RESP 18; O2SAT 98
[2022-09-28] MEDS: Ipratropium/Albuterol Sulfate 3 ML AMPUL.NEB INHALATION (07:17)
[2022-09-28] MEDS: amLODIPine 2.5 MG Tablet PO (07:25)
[2022-09-28] MEDS: Losartan Potassium 25 MG Tablet PO (07:25)
[2022-09-28] MEDS: metFORMIN HCl 1,000 MG Tablet 1000 MG PO ×2 (07:25→16:28)
[2022-09-28] MEDS: Pantoprazole Sodium 20 MG Tablet PO (07:25)
[2022-09-28] MEDS: Furosemide 20 MG Tablet PO (07:26)
[2022-09-28] MEDS: Sertraline 50 MG Tablet PO (07:26)
[2022-09-28] MEDS: Ipratropium Bromide 0.06% NASAL SPRAY 2 SPRAY NASAL ×2 (07:27→21:17)
[2022-09-28 07:28] VITALS: BP 130/45; PULSE 48; RESP 16; TEMP 36.1; O2SAT 94
[2022-09-28] MEDS: Nystatin Powder 15gm Bottle 1 APPLIC TOPICAL ×2 (07:30→21:19)
--- NOTE | 2022-09-28 09:22 | PCM.PROGNOTE ---
Subjective Subjective Roberto was seen on team rounds today. His daughter Andrew Lambert and his Mercy were present in the room for rounds. His son Nash listened in on the phone. Afebrile VSS-blood pressure is well controlled. He is often bradycardic but asymptomatic. Maintaining appropriate oxygen saturation on RA Oral intake is good. Fluid intake is fair. Blood sugar record was reviewed and the blood sugars are well controlled with no hypoglycemia Discussed with nursing - no problems that need addressed Reviewed the PT/OT/ST notes Medication list reviewed. Tells me that he coughs when eating and drinking. He is sleeping better at night. Doing well with therapy. Roberto denies chest pain, palpitations, lightheadedness, nausea/vomiting/abdominal pain, dysuria, calf tenderness, constipation and diarrhea. Objective Data Objective Data Vital Signs: Vital Signs Temp Pulse Resp BP Pulse Ox O2 Del Method 97.0 F L 48 L 16 130/45 H 94 Room Air 09/28/22 07:28 09/28/22 07:28 09/28/22 07:28 09/28/22 07:28 09/28/22 07:28 09/28/22 07:28 Oxygen Delivery Method Room Air Weight: 197 lb 12.074 oz Body Mass Index (BMI) 28.3 Intake & Output: Intake and Output for Last 24 Hours 09/26/22 09/27/22 09/28/22 23:59 23:59 23:59 Intake Total 360 / 360 1320 / 1320 1020 / 1020 Output Total 800 / 800 1850 / 1850 700 / 700 Balance -440 / -440 -530 / -530 320 / 320 Lab / Micro Data 09/25/22 05:41 09/25/22 05:41 Labs: Laboratory Results - last 24 hr 09/27/22 16:22: POC Glucose 132 H 09/28/22 06:11: POC Glucose 111 H Micro: Microbiology 09/25/22 16:05 Mucosa - Nose Respiratory Panel (PCR) - Final Physical Exam Const alert, oriented x3 and no apparent distress Constitutional Narrative: Eating his lunch and I have not heard him cough once. He has some crackles and loose rhonchi over the neck. General Appearance: cooperative Resp Resp Narrative: Good air exchange and he is not tachypneic. Breathing is not labored and it is also not labored when he is walking. Rhinorrhea has resolved with the Atrovent nasal spray. Still clearing his throat but, the cough and clearing are stronger and he is able to mobilize the secretions. No pursed lip breathing. Cardio regular rate, regular rhythm and no gallops GI normal to inspection, nondistended, normoactive bowel sounds, soft to palpation and non-tender GI Narrative: No guarding with palpation Extremity no calf tenderness General Extremity: Negative for edema Skin Rashes: no rashes Wounds: Negative for wounds noted Neuro Neuro Narrative: Slow deliberate speech. Monotone with little fluctuation of the voice. Projecting well. Masked facies and decreased blink. Psych thought process normal, cooperative and affect normal Psych Narrative: He is calm Appearance: appropriate Attitude: No agitated Assessment & Plan Assessment/Plan (1) Debility: (2) Generalized weakness: (3) Dysphagia: QUALIFIERS: Dysphagia type: unspecified Qualified Code(s): R13.10 - Dysphagia, unspecified (4) Acute bronchitis: QUALIFIERS: Bronchitis organism: unspecified organism Qualified Code(s): J20.9 - Acute bronchitis, unspecified (5) COPD with acute exacerbation: (6) Falls: (7) Parkinson's disease: (8) Normochromic normocytic anemia: (9) Thrombocytopenia: (10) Depression: (11) PIEDAD on CPAP: (12) Pure hypercholesterolemia: (13) Essential hypertension: (14) DM (diabetes mellitus), type 2: QUALIFIERS: Diabetes mellitus complication status: with other specified complication Diabetes mellitus exterminator insulin use: without exterminator use Qualified Code(s): E11.69 - Type 2 diabetes mellitus with other specified complication (15) Urinary urgency: (16) Former smoker, stopped smoking many years ago: (17) Bradycardia: (18) Concentric left ventricular hypertrophy: PLAN: Plan 1. Continue therapy 2. Discontinue scheduled DuoNebs. Continue albuterol every 2 hours as needed. 3. Start salmeterol/fluticasone 1 puff every 12 hours 4. Check a BMP and H&H in the a.m. 5. Patient is asymptomatic with bradycardia at this time. We will continue to monitor and if he becomes symptomatic or the heart rate drops below 45 will need to adjust metoprolol dosing. 6. Still coughing with eating and clearing his throat. Most of the crackles and coarse wheezing are coming from the neck/upper airway. Will discuss with ST.......Would like to see him have a Fees but, apparently we do not have all the equipment needed at this time. May need to do a barium swallow. Is the dysphagia due to PD or could he have and upper esophageal problem? ST is going to do a MBS......He has been on Thickened liquids in the past and I suspect he needs to be on thickened liquids again. ST gave him exercises to do by himself 2-3 times a day. 7. Family is concerned about the agitation he was having prior to admission to the hospital. We discussed that when antidepressant dose is increased it can take a couple weeks to notice a significant difference in affect. He has been patient and calm with us in rehab. He gets short tempered with his because she has dementia and can not remember things. I reinforced with his dtr that we need to give him some time and I think he would benefit from some psychotherapy for depression. Charges/Coding Visit Charges Inpatient E&M: 26786 Subs Hosp L2
[2022-09-28 11:19] VITALS: BMI 28.7
[2022-09-28 11:51] VITALS: PULSE 60
[2022-09-28] MEDS: Fluticasone/Salmeterol 232-14 Inhaler 1 PUFF INHALATION ×2 (11:51→21:16)
[2022-09-28] MEDS: Metoprolol(XL)Succ 25 MG Tablet PO (11:51)
[2022-09-28] MEDS: Ascorbic Acid 500 MG Tablet 1000 MG PO (11:52)
[2022-09-28] MEDS: Ferrous Gluconate 324 MG Tablet PO (11:52)
--- NOTE | 2022-09-28 13:05 | CASEMGMT ---
Social Work Team meeting held. Patient present as well as patient spouse and daughter, Elodia. Patient with Medicare as insurance, currently waiting to hear back from Medicare on how many days patient will be approved for stay on the Inpatient Rehab Unit. Patient discharge plan is to return to [facility], Independent Living but is working on transitioning to the assisted living at [facility]. Elodia reports that patient and patient spouse have been put on a waiting list for the assisted living. Patient to continue with further care and treatment on the Inpatient Rehab unit. Social Work to continue to follow as needed. Shay HENRY, MARCO
[2022-09-28] MEDS: Gabapentin 300 MG Capsule PO (16:28)
[2022-09-28] MEDS: Aspirin 81 MG TAB.CHEW 162 MG PO (16:28)
[2022-09-28 17:03] LABS: Bedside Glucose 157 mg/dL (74-106)
[2022-09-28 20:09] VITALS: BP 130/55; PULSE 58; RESP 15; TEMP 36.7; O2SAT 97
[2022-09-28] MEDS: CARBIDOPA/LEVODOPA CR 50/200 Tablet PO (21:18)
[2022-09-28] MEDS: Gabapentin 300 MG Capsule 600 MG PO (21:18)
[2022-09-28] MEDS: Pravastatin 40 MG Tablet PO (21:18)
[2022-09-28] MEDS: Amitriptyline 10 MG Tablet PO (21:18)
[2022-09-29] MEDS: Enoxaparin 40 MG/0.4 ML Syringe SC (05:58)
[2022-09-29] MEDS: Carbidopa/Levodopa 25/100 Tablet PO ×3 (05:59→16:40)
[2022-09-29 06:09] LABS: Hematocrit 32.7 % (40-54); Hemoglobin 10.4 g/dL (13.0-16.5)
[2022-09-29 06:44] LABS: Anion Gap 4 (5-15); BUN 30 mg/dL (7-18); BUN/Creat Ratio 27.3 RATIO (10-20); Calcium,Total 8.8 mg/dL (8.5-10.1); Chloride 105 mmol/L (98-107); EST Glomerular Filtration Rate 68 mL/min (>60); Est Glom Filt Rate - Afr Amer 82 mL/min (>60); Estimated Creatinine Clearance 53.46 ml/min; Glucose 116 mg/dL (74-106); Potassium 4.1 mmol/L (3.5-5.1); Sodium Level 138 mmol/L (136-145)
[2022-09-29 06:44] LABS: Bedside Glucose 122 mg/dL (74-106)
[2022-09-29 07:37] VITALS: BP 147/55; PULSE 53; RESP 16; TEMP 36.2; O2SAT 93
[2022-09-29] MEDS: Ipratropium Bromide 0.06% NASAL SPRAY 2 SPRAY NASAL ×2 (08:30→20:25)
[2022-09-29 08:31] VITALS: PULSE 60
[2022-09-29] MEDS: Metoprolol(XL)Succ 25 MG Tablet PO (08:31)
[2022-09-29] MEDS: Fluticasone/Salmeterol 232-14 Inhaler 1 PUFF INHALATION ×2 (08:31→20:28)
[2022-09-29] MEDS: Sertraline 50 MG Tablet PO (08:32)
[2022-09-29] MEDS: metFORMIN HCl 1,000 MG Tablet 1000 MG PO ×2 (08:32→16:41)
[2022-09-29] MEDS: Losartan Potassium 25 MG Tablet PO (08:32)
[2022-09-29] MEDS: Furosemide 20 MG Tablet PO (08:32)
[2022-09-29] MEDS: Pantoprazole Sodium 20 MG Tablet PO (08:35)
[2022-09-29] MEDS: amLODIPine 2.5 MG Tablet PO (08:35)
[2022-09-29] MEDS: Nystatin Powder 15gm Bottle 1 APPLIC TOPICAL ×2 (08:38→20:40)
--- NOTE | 2022-09-29 10:42 | PCM.PROGNOTE ---
Subjective Subjective Afebrile VSS Maintaining appropriate oxygen saturation on RA Oral intake is good The blood sugar record was reviewed and the blood sugars are under excellent control. Discussed with nursing - no problems that need addressed Reviewed the PT/OT/ST notes speech therapy placed Roberto on nectar thick liquids today and there is a modified barium swallow ordered for tomorrow. His voice had wet vocal quality following fluids. He is doing his ST exercises in his room to strengthen his swallow. Medication list reviewed. All lab drawn today was personally reviewed. Hemoglobin is 10.4 today, down from 11.1 on 09/25/2022. Sodium is 138 potassium is 4.1. The BUN is up to 30 from 19 on 09/25/2022 and the creatinine is increased from 0.93-1.10. Fluid intake has been a little better the past 2 days but, now he is on thickened liquids and it may decrease again. Denies BELLAMY, pain, shortness of breath, palpitations, lightheadedness, nausea/vomiting/abdominal pain, dysuria and calf tenderness. I do not hear him coughing and clearing his throat nearly as much now that he is on nectar thick liquids. Objective Data Objective Data Vital Signs: Vital Signs Temp Pulse Resp BP Pulse Ox O2 Del Method 97.2 F L 60 16 147/55 H 93 Room Air 09/29/22 07:37 09/29/22 08:31 09/29/22 07:37 09/29/22 07:37 09/29/22 07:37 09/29/22 07:37 Oxygen Delivery Method Room Air Weight: 200 lb 2.876 oz Body Mass Index (BMI) 28.7 Intake & Output: Intake and Output for Last 24 Hours 09/27/22 09/28/22 09/29/22 23:59 23:59 23:59 Intake Total 1320 / 1320 1220 / 1220 120 / 120 Output Total 1850 / 1850 900 / 900 400 / 400 Balance -530 / -530 320 / 320 -280 / -280 Lab / Micro Data 09/29/22 05:40 09/29/22 05:40 Labs: Laboratory Results - last 24 hr 09/28/22 16:43: POC Glucose 157 H 09/29/22 05:40: Hgb 10.4 L, Hct 32.7 L, Sodium 138, Potassium 4.1, Chloride 105, Carbon Dioxide 29.0, Anion Gap 4 L, BUN 30 H, Creatinine 1.10, Estim Creat Clear Calc 53.46, Est GFR (MDRD) Af Amer 82, Est GFR (MDRD) Non-Af 68, BUN/Creatinine Ratio 27.3 H, Glucose 116 H, Calcium 8.8 09/29/22 06:04: POC Glucose 122 H Micro: Microbiology 09/25/22 16:05 Mucosa - Nose Respiratory Panel (PCR) - Final Physical Exam Const alert, oriented x3 and no apparent distress General Appearance: cooperative Resp normal respiratory effort and clear to auscultation bilaterally Cardio regular rate, regular rhythm and no gallops GI normal to inspection, nondistended, normoactive bowel sounds, soft to palpation and non-tender Extremity no calf tenderness General Extremity: Negative for edema Skin General Skin Exam: no breakdown Rashes: no rashes Assessment & Plan Assessment/Plan (1) Debility: (2) Generalized weakness: (3) Dysphagia: QUALIFIERS: Dysphagia type: unspecified Qualified Code(s): R13.10 - Dysphagia, unspecified (4) Acute bronchitis: QUALIFIERS: Bronchitis organism: unspecified organism Qualified Code(s): J20.9 - Acute bronchitis, unspecified (5) COPD with acute exacerbation: (6) Falls: (7) Parkinson's disease: (8) Normochromic normocytic anemia: (9) Thrombocytopenia: (10) Depression: (11) PIEDAD on CPAP: (12) Pure hypercholesterolemia: (13) Essential hypertension: (14) DM (diabetes mellitus), type 2: QUALIFIERS: Diabetes mellitus complication status: with other specified complication Diabetes mellitus superintendent marine oil terminal insulin use: without superintendent marine oil terminal use Qualified Code(s): E11.69 - Type 2 diabetes mellitus with other specified complication (15) Urinary urgency: (16) Former smoker, stopped smoking many years ago: (17) Bradycardia: (18) Concentric left ventricular hypertrophy: PLAN: Plan 1. Continue therapy 2. Encourage increased fluid intake 3. Check a Hemoccult stool 4. Orthostatics in the a.m. 5. MBS tomorrow Charges/Coding Visit Charges Inpatient E&M: 31010 Subs Hosp L2
[2022-09-29] MEDS: Ascorbic Acid 500 MG Tablet 1000 MG PO (11:54)
[2022-09-29] MEDS: Ferrous Gluconate 324 MG Tablet PO (11:55)
[2022-09-29 12:22] VITALS: BP 120/54; BP 135/56; BP 137/45; PULSE 55; PULSE 56; PULSE 65
[2022-09-29] MEDS: Aspirin 81 MG TAB.CHEW 162 MG PO (16:41)
[2022-09-29] MEDS: Gabapentin 300 MG Capsule PO (16:43)
[2022-09-29 19:51] VITALS: BP 132/47; PULSE 56; RESP 16; TEMP 36.2; O2SAT 96
[2022-09-29] MEDS: Pravastatin 40 MG Tablet PO (20:24)
[2022-09-29] MEDS: Amitriptyline 10 MG Tablet PO (20:24)
[2022-09-29] MEDS: Gabapentin 300 MG Capsule 600 MG PO (20:28)
[2022-09-29] MEDS: Acetaminophen 325 MG Tablet 650 MG PO (20:29)
[2022-09-29] MEDS: CARBIDOPA/LEVODOPA CR 50/200 Tablet PO (20:37)
[2022-09-30 06:00] VITALS: BMI 28.2
[2022-09-30] MEDS: Enoxaparin 40 MG/0.4 ML Syringe SC (06:11)
[2022-09-30] MEDS: Carbidopa/Levodopa 25/100 Tablet PO ×3 (06:11→16:10)
[2022-09-30 06:39] VITALS: BP 113/60; BP 130/52; BP 136/53; PULSE 46; PULSE 48; PULSE 61
[2022-09-30 06:44] LABS: Bedside Glucose 113 mg/dL (74-106)
[2022-09-30 07:47] VITALS: BP 136/53; PULSE 48
[2022-09-30] MEDS: Fluticasone/Salmeterol 232-14 Inhaler 1 PUFF INHALATION ×2 (07:47→20:29)
[2022-09-30] MEDS: Metoprolol(XL)Succ 25 MG Tablet PO (07:47)
[2022-09-30] MEDS: Ipratropium Bromide 0.06% NASAL SPRAY 2 SPRAY NASAL ×2 (07:47→20:27)
[2022-09-30] MEDS: Sertraline 50 MG Tablet PO (07:47)
[2022-09-30] MEDS: metFORMIN HCl 1,000 MG Tablet 1000 MG PO ×2 (07:48→16:10)
[2022-09-30] MEDS: Losartan Potassium 25 MG Tablet PO (07:48)
[2022-09-30] MEDS: Furosemide 20 MG Tablet PO (07:48)
[2022-09-30] MEDS: Pantoprazole Sodium 20 MG Tablet PO (07:48)
[2022-09-30] MEDS: amLODIPine 2.5 MG Tablet PO (07:48)
[2022-09-30] MEDS: Nystatin Powder 15gm Bottle 1 APPLIC TOPICAL ×2 (07:52→20:30)
[2022-09-30 07:54] VITALS: BP 136/53; PULSE 48; RESP 17; TEMP 36.2; O2SAT 93
[2022-09-30] MEDS: Ferrous Gluconate 324 MG Tablet PO (11:40)
[2022-09-30] MEDS: Ascorbic Acid 500 MG Tablet 1000 MG PO (11:40)
--- NOTE | 2022-09-30 14:49 | ST.MBS ---
Modified Barium Swallow Patient Information Study Date: 09/30/22 Study Time: 13:30 Direct Billable Minutes: 113 Total Minutes procedure & reportin Diagnosis: Parkinson's Disease (G20), COPD (J44.9) Referring Physician: Priscilla Rod Reason for Referral: Objectively assess swallow function, assess risk for aspiration, and determine recommendations for least restrictive diet textures and compensatory strategies to improve safety of swallow. Medical History: Roberto Noguera is an 82-year-old male with a PMH of PD, CAD, diabetes mellitus type 2, essential hypertension, hyperlipidemia,depression, history of penile cancer, peripheral arterial disease, history of prostate cancer and hx of ventricular ectopy who presented to the ED at [facility] on with complaints of increased generalized weakness and disorientation for the preceding 3 to 4 days. He was unable to get out of bed without assist of 2 on the morning of presentation to the emergency room. He had been sleeping in the recliner for the preceding few days because it was easier for him to get up. Work-up in the emergency department was unremarkable. He was admitted to the hospitalist service to arrange for transfer to an acute rehab unit or SNF for therapy to increase strength to hopefully allow him to return to independent living at [facility] with his . He was transferred to the acute inpatient rehab unit at [facility] on 09/24/2022 for 3 hours of therapy daily to restore function/independence to allow him to return to independent living. Patient seen and evaluated for ST and was recommended for thin liquids and regular textures. Patient most recently made nectar/mildly thick liquids with regular textures, and recommended to complete MBSS to assess risk/presence of aspiration. Current Diet Ordered: [place]/mildly thick liquids, regular textures Dentition: WNL Mental Status: WNL Respiratory Status: Oxygenating on Room Air Penetration-Aspiration Scale Penetration-Aspiration Scale: OBJECTIVE ASSESSMENT OF SWALLOW FUNCTION (QUANTITATIVE ? PER TRIAL): PENETRATION / ASPIRATION SCALE (VARGAS): 1 = does not enter airway 2 = enters airway/above vocal folds/ejected 3 = enters airway/above vocal folds/not ejected 4 = enters airway/contacts vocal folds/ejected 5 = enters airway/contacts vocal folds/not ejected 6 = enters airway/below vocal folds/ejected 7 = enters airway/below vocal folds/not ejected despite effort 8 = enters airway/below vocal folds/no effort VIDEOFLOROSCOPIC SCALE SCORE (VARGAS): Grade I = aspiration of material that has penetrated into the laryngeal vestibule, intact cough reflex Grade II = aspiration < 10 % of the bolus, intact cough reflex Grade III = aspiration of < 10 % of the bolus, reduced cough reflex or aspiration of > 10 % of the bolus, intact cough reflex Grade IV = aspiration of > 10 % of the bolus, reduced cough reflex Penetration-Aspiration Scale Score Thin Liquid via teaspoon: Result: 1= does not enter airway Thin Liquid via teaspoon Trial 2: Result: 1= does not enter airway Thin Liquid via single cup sip : Result: 1= does not enter airway Bayview Thick Liquid via small cup sip: Result: 2= enter airway/above vocal folds/ejected Comment: cued cough and re-swallow Pudding via tsp w/esophageal screen: Result: 1= does not enter airway Thin Liquid via sequential straw sip : Result: 5= enters airways/contacts vocal folds/not ejected 1/2 Cookie: Result: 1= does not enter airway Oral Phase Labial Seal: Escape progressing to mid-chin Tongue Control During Bolus Hold: Posterior escape of greater than half of bolus Bolus Preparation/Mastication: Timely and efficient chewing and mashing Bolus Transport/Lingual Motion: Repetitive/disorganized tongue motion Oral Residue: Trace residue lining oral structures Pharyngeal Phase Initiation of Pharyngeal Swallow: Bolus head in pyriforms Soft Palate Elevation: Trace column of contrast/air between soft palate and pharyngeal wall Laryngeal Elevation: Partial superior movement thyroid cart/partial apprx aryt-epig petiole Anterior Hyoid Excursion: Partial anterior movement Epiglottic Movement: Complete inversion Laryngeal Vestibule Closure at Height of Swallow: Incomplete; narrow column of air/contrast in laryngeal vestibule Pharyngeal Stripping Wave: Present - diminished Pharyngoesophageal Segment Opening: Parital distension and partial duration; parital obstruction of flow Tongue Base Retraction: Trace column of contrast between tongue base & post. pharyngeal wall Pharyngeal Residue: Trace residue within or on pharyngeal structures Esophageal Phase Esophageal Clearance: Complete clearance Treatment Strategies Effects of treatment strategies attemped:: cough and re-swallow = effective decreased bolus size = effective Diagnosis/Impression Diagnosis: Mild-Moderate Oropharyngeal Dysphagia Impression: The oral phase is primarily marked by... -Decreased bolus control with >1/2 of the bolus spilling posteriorly to the pyriforms prior to swallow onset observed with large bolus sizes especially. -Brisk but repetitive tongue motion for A-P transport. -Minimal oral residue after the swallow. The pharyngeal phase is primarily marked by... -Moderately decreased airway closure during the swallow, most notable with large bolus sizes, due to no anterior hyoid excursion, and decreased laryngeal elevation. -Mildly decreased tongue base retraction, mildly decreased UES opening/duration, and mildly decreased pharyngeal stripping wave with resulting trace pharyngeal residues after the swallow. -Laryngeal penetration of nectar thick liquid consistencies, which ejected after patient was cued to cough and re-swallow. No aspiration observed during study; however, deep laryngeal penetration of thin liquid by sequential straw sip, placing patient at increased risk for aspiration. The esophageal phase was grossly within normal limits. Recommendations Diet: Regular Textures and Thin Liquids Comment: Intermittent cough and re-swallow. Compensatory Strategies: Small Bites, Small Sips, No Straws, Slow Rate and Sitting upright Recommend Repeat Modified Barium Swallow: Yes Need for Skilled Speech Therapy Services: Yes Comment: Will recommend the patient for dysphagia therapy to address deficits in oropharyngeal swallow function. Will recommend the patient for oropharyngeal strengthening to improve lingual coordination, laryngeal elevation, hyoid excursion, and duration of UES opening. The patient would benefit from thorough education regarding diet recommendations and recommended compensatory strategies. Would recommend patient for thin liquids via small cup sips, consider using tsp to reduce bolus size. Education Completed: 1. Described result of evaluation., 2. Pt understands evaluation & agrees with goals and treatment plan. and 7. Pt requires further education on strategies & risks. Status Active ST Patient: Active Contact Information [facility] Speech Therapy:: Zac Crocker M.A. [employer] Speech-Language Pathologist [facility] [address] [place] [address]
--- NOTE | 2022-09-30 15:21 | PN_ITS ---
Subjective Subjective Afebrile VSS-heart rate today is in the 40s. He had orthostatics done and the pulse went from 48 lying down to 46 sitting and then up to 61 with standing for 1 minute. Blood pressure lying down was 136/53, sitting was 130/52 and standing was 113/60. Maintaining appropriate oxygen saturation on RA Oral intake - there is only 120 listed for intake yesterday and I have a hard time believing this. Blood sugars are under excellent control with no hypoglycemia. Discussed with nursing - no problems that need addressed....sleeping well and eating well. Reviewed the PT/OT/ST notes Medication list reviewed. Stool is heme-negative. Denies CP, SOB, N/V/D/C/abd pain, dysuria and calf tenderness. Objective Data Objective Data Vital Signs: Vital Signs Temp Pulse Resp BP Pulse Ox O2 Del Method 97.1 F L 48 L 17 136/53 H 93 Room Air 09/30/22 07:54 09/30/22 07:54 09/30/22 07:54 09/30/22 07:54 09/30/22 07:54 09/30/22 07:54 Oxygen Delivery Method Room Air Weight: 196 lb 10.437 oz Body Mass Index (BMI) 28.2 Intake & Output: Intake and Output for Last 24 Hours 09/28/22 09/29/22 09/30/22 23:59 23:59 23:59 Intake Total 1220 / 1220 120 / 120 Output Total 900 / 900 700 / 700 Balance 320 / 320 -580 / -580 Lab / Micro Data 09/29/22 05:40 09/29/22 05:40 Labs: Laboratory Results - last 24 hr 09/30/22 06:15: POC Glucose 113 H Micro: Microbiology 09/29/22 23:09 Stool Stool Occult Blood (MILVIA) - Final 09/25/22 16:05 Mucosa - Nose Respiratory Panel (PCR) - Final Physical Exam Const alert and oriented x3 Constitutional Narrative: Sitting in the recliner at the bedside. General Appearance: cooperative HEENT Mouth: dry mucous membranes Neck supple Resp Resp Narrative: Good air exchange. Had some inspiratory wheezing initially but, he cleared his throat and he was CTA. He had just gulped a large mouth full of water. Cardio regular rate, regular rhythm and no gallops GI normal to inspection, nondistended, normoactive bowel sounds, soft to palpation and non-tender GI Narrative: Denies constipation and diarrhea. Extremity no calf tenderness General Extremity: Negative for edema Psych Psych Narrative: Good mood. Making good eye contact. Pleasant. Appearance: appropriate Assessment & Plan Assessment/Plan (1) Debility: (2) Generalized weakness: (3) Dysphagia: QUALIFIERS: Dysphagia type: unspecified Qualified Code(s): R13.10 - Dysphagia, unspecified (4) Acute bronchitis: QUALIFIERS: Bronchitis organism: unspecified organism Qualified Code(s): J20.9 - Acute bronchitis, unspecified (5) COPD with acute exacerbation: (6) Falls: (7) Parkinson's disease: (8) Normochromic normocytic anemia: (9) Thrombocytopenia: (10) Depression: (11) PIEDAD on CPAP: (12) Pure hypercholesterolemia: (13) Essential hypertension: (14) DM (diabetes mellitus), type 2: QUALIFIERS: Diabetes mellitus complication status: with other specified complication Diabetes mellitus watermaster insulin use: without watermaster use Qualified Code(s): E11.69 - Type 2 diabetes mellitus with other specified complication (15) Urinary urgency: (16) Former smoker, stopped smoking many years ago: (17) Bradycardia: (18) Concentric left ventricular hypertrophy: PLAN: Plan 1. Continue therapy 2. I reviewed the results of the modified barium swallow and he did have laryngeal penetration of nectar thick liquids which were ejected after the p atient was cued to cough and reswallow. There was no aspiration observed. There was deep laryngeal penetration of thin liquids by straw sip and he was instructed not to use a straw and to take small sips. His oral phase is primarily marked by decreased bolus control. He was approved for thin liquids with no straws. 3. He is tolerating the increased sertraline with no adverse side effects. He is sleeping better with the addition of amitriptyline 10 mg at at bedtime which has significantly cut down on nocturia. Postvoid residuals are not elevated. 4. Doing very well with therapy and I expect he will go back to independent living at [facility]. They are on a list to move to assisted living at [facility]. 5. He would benefit from counselling to learn to manage his frustration with his when she does not remember things (she has dementia). Charges/Coding Visit Charges Inpatient E&M: 85362 Subs Hosp L2
--- NOTE | 2022-09-30 15:38 | EKG12_ITS ---
Test Reason : ROSAURA Blood Pressure : / mmHG Vent. Rate : 051 BPM Atrial Rate : 051 BPM P-R Int : 198 ms QRS Dur : 106 ms QT Int : 480 ms P-R-T Axes : -27 -26 -12 degrees QTc Int : 442 ms Sinus bradycardia Otherwise normal ECG No previous ECGs available Confirmed by MANDEEP AN, MICHEL ([id number]), editor publications ALESSANDRO AGUAYO ([id number]) on 10/02/2022 8:58:18 AM Referred By: CARLOS Confirmed By:MICHEL KAUFMAN MD
[2022-09-30] MEDS: 0.9% Normal Saline 1,000 ML 75 ML IV (16:05)
[2022-09-30] MEDS: Aspirin 81 MG TAB.CHEW 162 MG PO (16:10)
[2022-09-30] MEDS: Gabapentin 300 MG Capsule PO (16:10)
[2022-09-30 16:56] LABS: Bedside Glucose 109 mg/dL (74-106)
[2022-09-30 19:23] VITALS: BP 129/46; PULSE 55; RESP 18; TEMP 36.4; O2SAT 99
[2022-09-30] MEDS: Amitriptyline 10 MG Tablet PO (20:29)
[2022-09-30] MEDS: Gabapentin 300 MG Capsule 600 MG PO (20:45)
[2022-09-30] MEDS: Pravastatin 40 MG Tablet PO (20:46)
[2022-09-30] MEDS: CARBIDOPA/LEVODOPA CR 50/200 Tablet PO (20:46)
[2022-10-01 05:24] VITALS: BMI 28.8
[2022-10-01] MEDS: Carbidopa/Levodopa 25/100 Tablet PO ×3 (06:11→16:22)
[2022-10-01] MEDS: Enoxaparin 40 MG/0.4 ML Syringe SC (06:12)
[2022-10-01 06:43] LABS: Bedside Glucose 107 mg/dL (74-106)
[2022-10-01 08:01] VITALS: BP 137/52; PULSE 52; RESP 16; TEMP 36.2; O2SAT 94
[2022-10-01] MEDS: Fluticasone/Salmeterol 232-14 Inhaler 1 PUFF INHALATION ×2 (08:12→20:34)
[2022-10-01] MEDS: Ipratropium Bromide 0.06% NASAL SPRAY 2 SPRAY NASAL ×2 (08:12→20:34)
[2022-10-01 08:13] VITALS: BP 137/52; PULSE 52
[2022-10-01] MEDS: amLODIPine 2.5 MG Tablet PO (08:13)
[2022-10-01] MEDS: Pantoprazole Sodium 20 MG Tablet PO (08:13)
[2022-10-01] MEDS: Losartan Potassium 25 MG Tablet PO (08:13)
[2022-10-01] MEDS: Nystatin Powder 15gm Bottle 1 APPLIC TOPICAL ×2 (08:13→20:34)
[2022-10-01] MEDS: Furosemide 20 MG Tablet PO (08:13)
[2022-10-01] MEDS: Metoprolol(XL)Succ 25 MG Tablet PO (08:13)
[2022-10-01] MEDS: metFORMIN HCl 1,000 MG Tablet 1000 MG PO ×2 (08:13→16:23)
[2022-10-01] MEDS: Senna/Docusate Sodium 1 Tablet 2 TABLET PO (08:13)
[2022-10-01] MEDS: Sertraline 50 MG Tablet PO (08:14)
[2022-10-01] MEDS: Ascorbic Acid 500 MG Tablet 1000 MG PO (11:56)
[2022-10-01] MEDS: Ferrous Gluconate 324 MG Tablet PO (11:57)
[2022-10-01] MEDS: Gabapentin 300 MG Capsule PO (16:22)
[2022-10-01] MEDS: Aspirin 81 MG TAB.CHEW 162 MG PO (16:22)
[2022-10-01] MEDS: 0.9% Normal Saline 1,000 ML 75 ML IV (16:26)
[2022-10-01 17:13] LABS: Bedside Glucose 133 mg/dL (74-106)
[2022-10-01 19:24] VITALS: BP 134/52; PULSE 55; RESP 14; TEMP 36.6; O2SAT 99
[2022-10-01] MEDS: Amitriptyline 10 MG Tablet PO (20:26)
[2022-10-01] MEDS: Gabapentin 300 MG Capsule 600 MG PO (20:33)
[2022-10-01] MEDS: Pravastatin 40 MG Tablet PO (20:35)
[2022-10-01] MEDS: CARBIDOPA/LEVODOPA CR 50/200 Tablet PO (20:36)
[2022-10-01 22:00] VITALS: PULSE 58; RESP 15; O2SAT 99
[2022-10-02] MEDS: Acetaminophen 325 MG Tablet 650 MG PO (00:54)
[2022-10-02 06:22] VITALS: BMI 28.8
[2022-10-02 07:17] LABS: Bedside Glucose 119 mg/dL (74-106)
[2022-10-02 08:06] VITALS: BP 133/53; PULSE 52; RESP 18; TEMP 36.4; O2SAT 95
[2022-10-02] MEDS: Carbidopa/Levodopa 25/100 Tablet PO ×3 (08:38→15:49)
[2022-10-02] MEDS: Furosemide 20 MG Tablet PO (08:39)
[2022-10-02] MEDS: metFORMIN HCl 1,000 MG Tablet 1000 MG PO ×2 (08:39→16:59)
[2022-10-02] MEDS: Ipratropium Bromide 0.06% NASAL SPRAY 2 SPRAY NASAL ×2 (08:39→20:56)
[2022-10-02] MEDS: Pantoprazole Sodium 20 MG Tablet PO (08:40)
[2022-10-02] MEDS: amLODIPine 2.5 MG Tablet PO (08:40)
[2022-10-02] MEDS: Sertraline 50 MG Tablet PO (08:40)
[2022-10-02] MEDS: Senna/Docusate Sodium 1 Tablet 2 TABLET PO (08:41)
[2022-10-02] MEDS: Fluticasone/Salmeterol 232-14 Inhaler 1 PUFF INHALATION ×2 (08:42→20:55)
[2022-10-02] MEDS: Losartan Potassium 25 MG Tablet PO (08:42)
[2022-10-02] MEDS: Enoxaparin 40 MG/0.4 ML Syringe SC (08:42)
[2022-10-02] MEDS: Nystatin Powder 15gm Bottle 1 APPLIC TOPICAL ×2 (08:46→20:56)
[2022-10-02 08:52] VITALS: BP 133/53; PULSE 52
[2022-10-02 11:50] LABS: Bedside Glucose 76 mg/dL (74-106)
[2022-10-02] MEDS: 0.9% Saline Lock 10 ML Syringe IV (12:19)
[2022-10-02] MEDS: 0.9% Normal Saline 1,000 ML 75 ML IV (12:20)
[2022-10-02] MEDS: Ferrous Gluconate 324 MG Tablet PO (12:25)
[2022-10-02] MEDS: Ascorbic Acid 500 MG Tablet 1000 MG PO (12:25)
[2022-10-02] MEDS: Gabapentin 300 MG Capsule PO (16:58)
[2022-10-02] MEDS: Aspirin 81 MG TAB.CHEW 162 MG PO (16:59)
[2022-10-02 17:13] LABS: Bedside Glucose 121 mg/dL (74-106)
[2022-10-02 18:54] VITALS: BP 163/63; PULSE 63; RESP 16; TEMP 36.1; O2SAT 96
[2022-10-02] MEDS: Gabapentin 300 MG Capsule 600 MG PO (20:28)
[2022-10-02] MEDS: Amitriptyline 10 MG Tablet PO (20:31)
[2022-10-02] MEDS: Pravastatin 40 MG Tablet PO (20:57)
[2022-10-02] MEDS: CARBIDOPA/LEVODOPA CR 50/200 Tablet PO (21:00)
[2022-10-02 22:00] VITALS: PULSE 63; RESP 15; O2SAT 96
[2022-10-03] MEDS: Acetaminophen 325 MG Tablet 650 MG PO (02:06)
[2022-10-03] MEDS: Carbidopa/Levodopa 25/100 Tablet PO ×3 (05:42→16:41)
[2022-10-03] MEDS: Enoxaparin 40 MG/0.4 ML Syringe SC (05:42)
[2022-10-03 07:25] LABS: Bedside Glucose 104 mg/dL (74-106)
[2022-10-03 08:10] VITALS: BP 136/54; PULSE 76; RESP 16; TEMP 36; O2SAT 97
[2022-10-03] MEDS: Furosemide 20 MG Tablet PO (09:14)
[2022-10-03] MEDS: Fluticasone/Salmeterol 232-14 Inhaler 1 PUFF INHALATION ×2 (09:14→20:20)
[2022-10-03] MEDS: Ipratropium Bromide 0.06% NASAL SPRAY 2 SPRAY NASAL ×2 (09:14→20:20)
[2022-10-03] MEDS: metFORMIN HCl 1,000 MG Tablet 1000 MG PO ×2 (09:14→16:41)
[2022-10-03] MEDS: amLODIPine 2.5 MG Tablet PO (09:14)
[2022-10-03] MEDS: Losartan Potassium 25 MG Tablet PO (09:14)
[2022-10-03] MEDS: Pantoprazole Sodium 20 MG Tablet PO (09:15)
[2022-10-03] MEDS: Sertraline 50 MG Tablet PO (09:15)
[2022-10-03 09:36] VITALS: PULSE 64; RESP 15; O2SAT 98
[2022-10-03] MEDS: Nystatin Powder 15gm Bottle 1 APPLIC TOPICAL ×2 (09:42→20:21)
[2022-10-03 09:44] VITALS: BP 152/63; PULSE 60
[2022-10-03] MEDS: Metoprolol(XL)Succ 25 MG Tablet PO (09:44)
[2022-10-03] MEDS: Ascorbic Acid 500 MG Tablet 1000 MG PO (11:16)
[2022-10-03] MEDS: Ferrous Gluconate 324 MG Tablet PO (11:16)
[2022-10-03] MEDS: Gabapentin 300 MG Capsule PO (16:43)
[2022-10-03] MEDS: Aspirin 81 MG TAB.CHEW 162 MG PO (16:43)
[2022-10-03 17:57] LABS: Bedside Glucose 140 mg/dL (74-106)
[2022-10-03 19:38] VITALS: BP 130/50; PULSE 75; RESP 15; TEMP 36.2; O2SAT 96
[2022-10-03] MEDS: Amitriptyline 10 MG Tablet PO (20:02)
[2022-10-03] MEDS: 0.9% Saline Lock 10 ML Syringe IV (20:02)
[2022-10-03 20:06] VITALS: PULSE 59; RESP 16; O2SAT 97
[2022-10-03] MEDS: Gabapentin 300 MG Capsule 600 MG PO (20:21)
[2022-10-03] MEDS: Pravastatin 40 MG Tablet PO (20:21)
[2022-10-03] MEDS: CARBIDOPA/LEVODOPA CR 50/200 Tablet PO (20:22)
[2022-10-04] MEDS: Enoxaparin 40 MG/0.4 ML Syringe SC (06:15)
[2022-10-04] MEDS: Carbidopa/Levodopa 25/100 Tablet PO ×3 (06:15→16:59)
[2022-10-04 07:23] LABS: Bedside Glucose 108 mg/dL (74-106)
[2022-10-04 07:27] VITALS: BP 99/63; PULSE 51; RESP 16; TEMP 36.1; O2SAT 95
[2022-10-04] MEDS: Pantoprazole Sodium 20 MG Tablet PO (08:40)
[2022-10-04] MEDS: Senna/Docusate Sodium 1 Tablet 2 TABLET PO ×2 (08:40→21:30)
[2022-10-04] MEDS: amLODIPine 2.5 MG Tablet PO (08:40)
[2022-10-04] MEDS: Losartan Potassium 25 MG Tablet PO (08:40)
[2022-10-04] MEDS: Sertraline 50 MG Tablet PO (08:41)
[2022-10-04] MEDS: Fluticasone/Salmeterol 232-14 Inhaler 1 PUFF INHALATION ×2 (08:41→21:32)
[2022-10-04] MEDS: Ipratropium Bromide 0.06% NASAL SPRAY 2 SPRAY NASAL ×2 (08:41→21:32)
[2022-10-04] MEDS: metFORMIN HCl 1,000 MG Tablet 1000 MG PO ×2 (08:41→16:59)
[2022-10-04] MEDS: Furosemide 20 MG Tablet PO (08:41)
[2022-10-04] MEDS: Nystatin Powder 15gm Bottle 1 APPLIC TOPICAL ×2 (08:43→21:36)
[2022-10-04] MEDS: 0.9% Saline Lock 10 ML Syringe IV (11:20)
[2022-10-04] MEDS: Ascorbic Acid 500 MG Tablet 1000 MG PO (11:21)
[2022-10-04] MEDS: Ferrous Gluconate 324 MG Tablet PO (11:21)
[2022-10-04 11:26] VITALS: BP 142/64; PULSE 60
[2022-10-04] MEDS: Metoprolol(XL)Succ 25 MG Tablet PO (11:26)
[2022-10-04] MEDS: Aspirin 81 MG TAB.CHEW 162 MG PO (16:59)
[2022-10-04] MEDS: Gabapentin 300 MG Capsule PO (17:02)
[2022-10-04 17:12] LABS: Bedside Glucose 114 mg/dL (74-106)
[2022-10-04] MEDS: Pravastatin 40 MG Tablet PO (21:31)
[2022-10-04] MEDS: CARBIDOPA/LEVODOPA CR 50/200 Tablet PO (21:31)
[2022-10-04] MEDS: Amitriptyline 10 MG Tablet PO (21:33)
[2022-10-04] MEDS: Gabapentin 300 MG Capsule 600 MG PO (21:35)
[2022-10-04 22:00] VITALS: BP 147/64; PULSE 57; RESP 16; TEMP 36.6; O2SAT 97
[2022-10-04] MEDS: Acetaminophen 325 MG Tablet 650 MG PO (23:13)
[2022-10-05 06:54] VITALS: BMI 28.6
[2022-10-05] MEDS: Carbidopa/Levodopa 25/100 Tablet PO ×3 (06:57→17:14)
[2022-10-05] MEDS: Enoxaparin 40 MG/0.4 ML Syringe SC (06:57)
[2022-10-05 07:39] LABS: Bedside Glucose 113 mg/dL (74-106)
[2022-10-05 07:48] VITALS: BP 141/58; PULSE 47; RESP 14; TEMP 36.8; O2SAT 92
[2022-10-05 09:46] VITALS: BP 141/58; PULSE 47
[2022-10-05] MEDS: Metoprolol(XL)Succ 25 MG Tablet PO (09:46)
[2022-10-05] MEDS: metFORMIN HCl 1,000 MG Tablet 1000 MG PO ×2 (09:46→17:14)
[2022-10-05] MEDS: Sertraline 50 MG Tablet PO (09:46)
[2022-10-05] MEDS: Fluticasone/Salmeterol 232-14 Inhaler 1 PUFF INHALATION ×2 (09:46→20:04)
[2022-10-05] MEDS: Furosemide 20 MG Tablet PO (09:46)
[2022-10-05] MEDS: Pantoprazole Sodium 20 MG Tablet PO (09:46)
[2022-10-05] MEDS: amLODIPine 2.5 MG Tablet PO (09:46)
[2022-10-05] MEDS: Losartan Potassium 25 MG Tablet PO (09:46)
[2022-10-05] MEDS: Senna/Docusate Sodium 1 Tablet 2 TABLET PO (09:46)
[2022-10-05] MEDS: Ipratropium Bromide 0.06% NASAL SPRAY 2 SPRAY NASAL ×2 (09:47→20:05)
[2022-10-05] MEDS: Nystatin Powder 15gm Bottle 1 APPLIC TOPICAL ×2 (09:49→20:05)
[2022-10-05] MEDS: Ascorbic Acid 500 MG Tablet 1000 MG PO (11:56)
[2022-10-05] MEDS: Ferrous Gluconate 324 MG Tablet PO (11:56)
--- NOTE | 2022-10-05 12:23 | PCM.PROGNOTE ---
Subjective Subjective Roberto was seen on TEAM rounds today. His and dtr were present in the room. Afebrile VSS Maintaining appropriate oxygen saturation on RA Oral intake is good Discussed with nursing - no problems that need addressed Reviewed the PT/OT/ST notes Medication list reviewed. Roberto is still c/o post nasal drip. He is sleeping with his HOB elevated most of the time. He denies heartburn, chest pain, nausea or sour taste in his mouth in the morning. He has no history of GERD but is on a PPI? prophylaxis? He denies lightheadedness, cephalgia, sore throat, chest pain, shortness of breath, palpitations, nausea/vomiting/abdominal pain, dysuria and calf pain. He tells me that the Atrovent nasal spray has helped decrease the rhinitis he had at admission. His daughter tells me he does have seasonal allergies and takes Claritin in the spring. Objective Data Objective Data Vital Signs: Vital Signs Temp Pulse Resp BP Pulse Ox O2 Del Method 98.2 F 47 L 14 141/58 H 92 Room Air 10/05/22 07:48 10/05/22 09:46 10/05/22 07:48 10/05/22 09:46 10/05/22 07:48 10/05/22 07:48 Oxygen Delivery Method Room Air Weight: 199 lb 14.177 oz Body Mass Index (BMI) 28.6 Intake & Output: Intake and Output for Last 24 Hours 10/03/22 10/04/22 10/05/22 23:59 23:59 23:59 Intake Total 2240 / 2240 1200 / 1200 360 / 360 Output Total 200 / 200 Balance 2240 / 2240 1200 / 1200 160 / 160 Lab / Micro Data 09/29/22 05:40 09/29/22 05:40 Labs: Laboratory Results - last 24 hr 10/04/22 16:40: POC Glucose 114 H 10/05/22 06:49: POC Glucose 113 H Micro: Microbiology 09/29/22 23:09 Stool Stool Occult Blood (MILVIA) - Final 09/25/22 16:05 Mucosa - Nose Respiratory Panel (PCR) - Final Physical Exam Const alert, oriented x3 and no apparent distress General Appearance: cooperative Orientation / Consciousness: Negative for confused HEENT moist oral mucous membranes Resp normal respiratory effort, normal air movement and clear to auscultation bilaterally Resp Narrative: He is doing a little pursed lip breathing again. Cardio regular rate, regular rhythm and no gallops Cardio Narrative: No change in the systolic MM at the 2nd RICS, LLSB and the apex. GI normal to inspection, nondistended, normoactive bowel sounds, soft to palpation and non-tender Extremity no calf tenderness General Extremity: Negative for edema Skin Rashes: no rashes Wounds: Negative for wounds noted Psych Psych Narrative: He has been pleasant with all the staff since he arrived on rehab. I know he gets agitated with his when she can not recall something or she is giving misinformation. He did not do that today while she was talking and he did not interrupt when she was talking. He has no adverse effects from increasing the Sertraline and he made sure to tell me to give him the pill that makes him urinate less at night.......Elavil. Appearance: appropriate Attitude: No agitated Activity / Motor Behavior: Negative for restless Assessment & Plan Assessment/Plan (1) Debility: (2) Generalized weakness: (3) Dysphagia: QUALIFIERS: Dysphagia type: unspecified Qualified Code(s): R13.10 - Dysphagia, unspecified (4) Acute bronchitis: QUALIFIERS: Bronchitis organism: unspecified organism Qualified Code(s): J20.9 - Acute bronchitis, unspecified (5) COPD with acute exacerbation: (6) Falls: (7) Parkinson's disease: (8) Normochromic normocytic anemia: (9) Thrombocytopenia: (10) Depression: (11) PIEDAD on CPAP: (12) Pure hypercholesterolemia: (13) Essential hypertension: (14) DM (diabetes mellitus), type 2: QUALIFIERS: Diabetes mellitus complication status: with other specified complication Diabetes mellitus intermediate insulin use: without intermediate use Qualified Code(s): E11.69 - Type 2 diabetes mellitus with other specified complication (15) Urinary urgency: (16) Former smoker, stopped smoking many years ago: (17) Bradycardia: (18) Concentric left ventricular hypertrophy: PLAN: Plan 1. Continue therapy 2. Discharge back to independent living at [facility] on Wednesday. He will have outpatient therapy at [facility]. 3. Encouraged him to attend delay the disease program at [facility] even when he is doing to OP therapy to keep up strength. He is doing 3 hours of therapy daily so he will be able to handle both. 4. CBC and BMP in the a.m. 5. Increase Losartan to 50 mg daily - majority of the systolic BP's are > 140 6. Family tells me that he is less irritable than he was at admission but, he is still at times getting grouchy/irritable Charges/Coding Visit Charges Inpatient E&M: 35699 Subs Hosp L2
--- NOTE | 2022-10-05 12:49 | CASEMGMT ---
Social Work IDT met with patient, and dtr for Team meeting. Discussed patient's progress in PT/OT/ST/SN. Confirmed Medicare DC date for 10/07. Pt remains on [facility] [place] waitlist, so pt will return to [place] with . IDT recommending OP PT/ST. Offered [facility] for OP therapy. pt and agreeable. Pt/family requesting hospital bed for adjustment of HOB. Faxed referral to [facility] for OP PT/ST. SW sent referral to [facility]. Plan: DC home with to [facility] 10/07, [facility] OP PT/ST, hospital bed Mary Elliott, ELAINE ABRAHAMW
[2022-10-05 16:42] LABS: Bedside Glucose 94 mg/dL (74-106)
[2022-10-05] MEDS: Aspirin 81 MG TAB.CHEW 162 MG PO (17:14)
[2022-10-05] MEDS: Gabapentin 300 MG Capsule PO (17:14)
[2022-10-05] MEDS: Loratadine 10 MG Tablet 5 MG PO (17:39)
[2022-10-05 19:58] VITALS: BP 133/54; PULSE 53; RESP 16; TEMP 36.5; O2SAT 98
[2022-10-05] MEDS: Gabapentin 300 MG Capsule 600 MG PO (20:03)
[2022-10-05] MEDS: Pravastatin 40 MG Tablet PO (20:03)
[2022-10-05] MEDS: CARBIDOPA/LEVODOPA CR 50/200 Tablet PO (20:04)
[2022-10-05] MEDS: Amitriptyline 10 MG Tablet PO (20:04)
[2022-10-06] MEDS: Acetaminophen 325 MG Tablet 650 MG PO ×2 (00:47→22:30)
[2022-10-06 05:27] LABS: Hematocrit 33.7 % (40-54); Hemoglobin 10.8 g/dL (13.0-16.5); Mean Corpuscular Hgb 28.2 pg (27.0-32.0); Mean Platelet Vol. 9.9 fl (6.2-12.0); Platelet Count 190 K/mm3 (150-450); RBC Distribution Width CV 12.7 % (11.6-14.6); RBC Distribution Width SD 40.4 fl (35.1-43.9); Red Blood Count 3.83 M/mm3 (4.6-6.2); White Blood Count 8.3 K/mm3 (4.4-11.0)
[2022-10-06 05:50] LABS: Anion Gap 5 (5-15); BUN 20 mg/dL (7-18); BUN/Creat Ratio 22.4 RATIO (10-20); Calcium,Total 8.4 mg/dL (8.5-10.1); Chloride 100 mmol/L (98-107); Creatinine, Serum 0.89 mg/dL (0.70-1.30); EST Glomerular Filtration Rate 87 mL/min (>60); Est Glom Filt Rate - Afr Amer 105 mL/min (>60); Estimated Creatinine Clearance 66.07 ml/min; Glucose 112 mg/dL (74-106); Potassium 4.2 mmol/L (3.5-5.1); Sodium Level 137 mmol/L (136-145)
[2022-10-06] MEDS: Enoxaparin 40 MG/0.4 ML Syringe SC (06:51)
[2022-10-06] MEDS: Carbidopa/Levodopa 25/100 Tablet PO ×3 (06:51→16:53)
[2022-10-06 07:18] LABS: Bedside Glucose 111 mg/dL (74-106)
[2022-10-06 07:39] VITALS: BP 129/48; PULSE 46; RESP 16; TEMP 36.3; O2SAT 96
[2022-10-06 08:56] VITALS: BP 129/48; PULSE 46
[2022-10-06] MEDS: metFORMIN HCl 1,000 MG Tablet 1000 MG PO ×2 (08:56→16:53)
[2022-10-06] MEDS: Loratadine 10 MG Tablet 5 MG PO (08:56)
[2022-10-06] MEDS: Sertraline 50 MG Tablet PO (08:56)
[2022-10-06] MEDS: Metoprolol(XL)Succ 25 MG Tablet PO (08:56)
[2022-10-06] MEDS: Losartan Potassium 50 MG Tablet PO (08:56)
[2022-10-06] MEDS: Ipratropium Bromide 0.06% NASAL SPRAY 2 SPRAY NASAL ×2 (08:56→20:04)
[2022-10-06] MEDS: Pantoprazole Sodium 20 MG Tablet PO (08:56)
[2022-10-06] MEDS: amLODIPine 2.5 MG Tablet PO (08:56)
[2022-10-06] MEDS: Nystatin Powder 15gm Bottle 1 APPLIC TOPICAL ×2 (08:58→20:08)
[2022-10-06] MEDS: Furosemide 20 MG Tablet PO (08:59)
[2022-10-06] MEDS: Fluticasone/Salmeterol 232-14 Inhaler 1 PUFF INHALATION ×2 (09:03→20:04)
[2022-10-06] MEDS: Ferrous Gluconate 324 MG Tablet PO (11:55)
[2022-10-06] MEDS: Ascorbic Acid 500 MG Tablet 1000 MG PO (11:55)
--- NOTE | 2022-10-06 12:12 | PN_ITS ---
Subjective Subjective Afebrile VSS Maintaining appropriate oxygen saturation on RA Oral intake is good Discussed with nursing - no problems that need addressed Reviewed the PT/OT/ST notes Medication list reviewed. He got Claritin yesterday to see if the secretions in the back of his throat would improve. All lab drawn this AM was personally reviewed. Hemoglobin is 10.8 and stable. The white blood cell count is normal and so are the platelets. BUN is down to 20 from 30 on 09/29/2022 and the creatinine today is 0.89 which is down from 1.1 on 09/29/2022. Sodium and potassium are normal. Serum bicarb is up to 32 again and I do not feel that this is secondary to dehydration as the BUN has come down and so is the creatinine. He was doing some pursed lip breathing again yesterday. Will order an ABG on . I think he breathed much better when he was on the aerosol treatments. Roberto tells me that he thinks he has less secretions in the back of his throat since the Claritin.........He sometimes has trouble swallowing his pills and then he tends to gulp water and then he starts coughing. He denies SOB and he does not notice that he is pursed lip breathing again. He is able to clear the secretions by clearing his throat and coughing. He denies CP, dysuria, calf pain, lightheadedness. Objective Data Objective Data Vital Signs: Vital Signs Temp Pulse Resp BP Pulse Ox O2 Del Method 97.4 F L 46 L 16 129/48 H 96 Room Air 10/06/22 07:39 10/06/22 08:56 10/06/22 07:39 10/06/22 08:56 10/06/22 07:39 10/06/22 07:39 Oxygen Delivery Method Room Air Weight: 199 lb 14.177 oz Body Mass Index (BMI) 28.6 Intake & Output: Intake and Output for Last 24 Hours 10/04/22 10/05/22 10/06/22 23:59 23:59 23:59 Intake Total 1200 / 1200 360 / 360 Output Total 200 / 200 Balance 1200 / 1200 160 / 160 Lab / Micro Data 10/06/22 05:04 10/06/22 05:04 Labs: Laboratory Results - last 24 hr 10/05/22 16:24: POC Glucose 94 10/06/22 05:04: WBC 8.3, RBC 3.83 L, Hgb 10.8 L, Hct 33.7 L, MCV 88.0, MCH 28.2, MCHC 32.0, RDW Std Deviation 40.4, RDW Coeff of Yamil 12.7, Plt Count 190, MPV 9.9, Sodium 137, Potassium 4.2, Chloride 100, Carbon Dioxide 32.0, Anion Gap 5, BUN 20 H, Creatinine 0.89, Estim Creat Clear Calc 66.07, Est GFR (MDRD) Af Amer 105, Est GFR (MDRD) Non-Af 87, BUN/Creatinine Ratio 22.4 H, Glucose 112 H, Calcium 8.4 L 10/06/22 06:53: POC Glucose 111 H Micro: Microbiology 09/29/22 23:09 Stool Stool Occult Blood (MILVIA) - Final 09/25/22 16:05 Mucosa - Nose Respiratory Panel (PCR) - Final Physical Exam Const alert, oriented x3 and no apparent distress Constitutional Narrative: Just finished his lunch. Pleasant and appropriate. General Appearance: cooperative HEENT moist oral mucous membranes Resp Resp Narrative: Diminished with decreased air exchange. Scatter inspiratory and exp wheezes even after a cough. Mild conversational dyspnea and he is pursed lip breathing although it is not as bad as it was at admission. No rales. Cardio regular rate, regular rhythm and no gallops GI normal to inspection, nondistended, normoactive bowel sounds, soft to palpation and non-tender Extremity no calf tenderness General Extremity: Negative for edema Skin General Skin Exam: no breakdown Rashes: no rashes Psych affect normal Psych Narrative: Sleeping well and has a good appetite. Has not been irritable with staff but, it is generally his family that he is short tempered with. Assessment & Plan Assessment/Plan (1) Debility: (2) Generalized weakness: (3) Dysphagia: QUALIFIERS: Dysphagia type: unspecified Qualified Code(s): R13.10 - Dysphagia, unspecified (4) Acute bronchitis: QUALIFIERS: Bronchitis organism: unspecified organism Qualified Code(s): J20.9 - Acute bronchitis, unspecified (5) COPD with acute exacerbation: PLAN: Will go home with Albuterol aerosols and has a appt with Dr. Nash Saab scheduled. Wheezing and air exchange much improved with aerosols. Pursed lip breathing resolved with tx. Due to the PD he was having trouble with inhalers and does much better on the aerosols. Wheezing has resolved. COPD is also likely exacerbated when he takes too big of a sip of water and then starts choki ng and coughing. He is doing better with swallowing exercises given to him by ST and he will continue to do these daily post DC. (6) Falls: QUALIFIERS: Encounter type: subsequent encounter Qualified Code(s): W19.XXXD - Unspecified fall, subsequent encounter PLAN: Due to generalized weakness. He knows that he should have been attending the Delay the Disease program at [facility] but, he could not get motivated to do it. Motivation to get out of rehab and back to [facility] has been good the past week. (7) Parkinson's disease: PLAN: Follow up with Dr. Eliceo Khan. Recommended he attend the Delay the Disease exercise program at [facility]. Will have OP PT/OT/ST post DC. (8) Normochromic normocytic anemia: PLAN: Hemoccult stool was negative. (9) Thrombocytopenia: (10) Depression: QUALIFIERS: Depression Type: reactive depression Qualified Code(s): F32.9 - Major depressive disorder, single episode, unspecified PLAN: Recently moved from his home in [place] to [facility] and into independent living at [facility] and now is on a list to move to assisted living. Sertraline was increased to 50 mg daily and Elavil was added at to help with nocturia 4-6 times a night and insomnia. Post void residuals have all been less than 150 on the Elavil. (11) PIEDAD on CPAP: PLAN: Wears CPAP. (12) Pure hypercholesterolemia: (13) Essential hypertension: (14) DM (diabetes mellitus), type 2: QUALIFIERS: Diabetes mellitus complication status: with other specified complication Diabetes mellitus intermediate insulin use: without intermediate use Qualified Code(s): E11.69 - Type 2 diabetes mellitus with other specified complication PLAN: HGBA1C is 6.3 (15) Urinary urgency: PLAN: Nocturia and urgency much improved with amitriptyline 10 g p.o. nightly. UA negative for infection. (16) Former smoker, stopped smoking many years ago: (17) Bradycardia: PLAN: Sometimes dips into the high 40's but, mostly the HR in ranging from 50- 60. He is asymptomatic. Will defer to cardiology whether or not to decrease/discontinue the Metoprolol. (18) Concentric left ventricular hypertrophy: PLAN: Plan 1. Plan DC to [place] independent living tomorrow. Charges/Coding Visit Charges Inpatient E&M: 19922 Subs Hosp L2
--- NOTE | 2022-10-06 12:34 | DCINST_ITS ---
Discharge Instructions Diet Discharge Diet: Low fat / Low cholesterol and - (Low salt. No straws, small bites and small sips. Cough intermittently to clear secretions. You may want to take your pills with applesauce o yogurt because they seem to go down easier. Take 1 pill at a time. ) Activity Discharge Activity: May Not Drive and Use Walker Weight Bearing Status: Full weight bearing Dressing / Incision Call your doctor if you observe: Fever of 101 or Higher, Numbness or Tingling, Inability to urinate, Inability to have a bowel movement, Shortness of breath, Dizziness, Fainting spells, Swelling in the ankles, Chest pain, Prolonged hiccupping, Increased palpitations (irregular heartbeat), Calf discomfort, Uncontrolled pain and - (STROKE symptoms: facial droop, slurred speech, inability to get words out, weakness on 1 side of the body and not the other, numbness on 1 side of the body and not the other, inability to maintain your balance sitting or standing, vertigo. ) Follow Up Care Please Follow Up With: Eliceo Khan MD When: you will also need to follow up with Dr. Drummond for primary care and I want you to follow up with a lung doctor to get Pulmonary function tests. Test Results: Test results from this visit will be discussed in further detail at your follow- up appointment, if applicable. Pending Tests Upon Discharge: none Discharge Plan Admission Admit Date/Time: 09/24/22 17:18 Primary Reason for Your Visit: Debility due to Parkinson's disease with dysphagia and falls. Attending Provider: Priscilla Rod Primary Care Provider: Eliceo Drummond Instructions Patient Instructions: Pulmonary Function Tests, Depression Affects Your Mind ..., Depression and the Brain's ..., Understanding Parkinson Disease Additional Instructions / Restrictions: 1. You have been a letitia to have on rehab and we have all been impressed with your abilities. With Parkinson's disease you truly lose it if you don't use it. I would like you to do your home exercises at least 5-6 days a week. The Delay the Disease program at [facility] is a good one and the goal is to delay progression of Parkinson's disease symptoms as long as possible. You have some problems with swallowing and it is very important to do the swallowing exercises every day so that you can continue drinking thin liquids instead of thickened liquids. Thin liquids are one of the hardest things to swallow because they go down too quickly and then you cough and choke. It is very important not to gulp fluids but, take small sips and make sure you swallow before taking another sip. The same is true with swallowing food.....small bites and swallow twice before taking another bite. These actions will help prevent food and liquids from going down the wrong pipe and causing pneumonia. 2. You have had a lot of change in your life recently. You moved from your home to [place] and into [facility] living and now you are awaiting a place in assisted living. Moving is very stressful and especially if you are moving from independent living in a house to a custodial. Many people get depressed when this happens. The symptoms of depression include not sleeping well or sleeping too much, changes in appetite, losing interest in the things you normally like to do, not wanting to socialize, getting irritable and snapping at loved ones and friends and then feeling remorse about it, losing your patience easily. You have some of these symptoms Roberto. you are on an anti-depressant called Sertraline, also called Zoloft. We increased the dose from 25 mg at admission to 50 mg daily. You have been tolerating this with no adverse side effects. I also added a drug called amitriptyline, also called Elavil, at night to help you sleep and also to help decrease the number of times you get up at night to urinate and this has worked well for you. We will continue this medication at Discharge. 3. When you first came to rehab you had some difficulty breathing. You were wheezing and you had pursed lip breathing. You had diminished breath sounds. We started you on some aerosolized breathing medication and you no longer had pursed lip breathing and you had much better air exchange and no wheezing. When we stopped the aerosol treatments the wheezing came back. I am going to send you home with an aerosol machine and I want you to use it 3 times a day. If you are feeling short of breath you can do an extra 1-2 treatments. 4. If your cough changes and you are bringing up yellow or green or bloody sputum then you need to call Dr. Drummond and get an appt as soon as possible because you may have pneumonia. If you have a fever, sweats or shaking chills and shortness of breath go right to the ER. Confusion can also be a sign of infection as we get older. 5. If you or your family has any questions after you leave rehab please do not hesitate to call me. OFFICE: [phone] CELL: [phone] REHAB: [phone] Have a wonderful rest of the summer Roberto. Discharge Orders/Prescriptions Prescriptions: New losartan 50 mg Tablet 50 mg PO DAILY Qty: 30 0RF albuterol sulfate 2.5 mg /3 mL (0.083 %) Solution For Nebulization 2.5 mg inhalation Q2H PRN PRN (Reason: SOB/wheezing) Qty: 100 0RF Rx Instructions: take an aerosol 3 times a day. May take 1 or 2 extra if short of breath. ascorbic acid (vitamin C) 500 mg Tablet 1,000 mg PO DAILY@1200 Qty: 30 0RF Rx Instructions: Take the Vitamin C with iron at lunch every day. amitriptyline 10 mg Tablet 10 mg PO 2100 Qty: 30 0RF sertraline 50 mg Tablet 50 mg PO DAILY Qty: 30 0RF ferrous gluconate 324 mg (37.5 mg iron) Tablet 324 mg PO DAILY@1200 Qty: 30 0RF Rx Instructions: TAke the iron with vitamin C to increase absorption of the iron. ipratropium bromide 42 mcg (0.06 %) Remus,Non-Aerosol 2 spray NASAL BID Qty: 1 0RF Continued carbidopa-levodopa 25-100 mg tablet 2 tab PO TID carbidopa-levodopa 50-200 mg tablet extended release 1 tab PO QHS pravastatin 40 MG tablet 40 mg PO QHS metformin 1,000 MG tablet 1,000 mg PO BIDCM omeprazole 20 MG capsule 20 mg PO DAILY furosemide 20 MG tablet 20 mg PO DAILY metoprolol succinate 25 MG tablet 25 mg PO DAILY gabapentin 300 mg capsule 300 mg .ROUTE .COMPLEX Rx Instructions: 300 mg Dinner; Take 1 capsule (300mg at dinner time and 2 capsules (600mg) at bed time acetaminophen 325 mg Tablet 650 mg PO Q6H PRN PRN (Reason: Pain 1-10 Or Fever>100.7) Qty: 1 0RF amlodipine 2.5 MG tablet 2.5 mg PO DAILY Qty: 30 0RF aspirin 81 MG tablet,chewable 162 mg PO DAILY@1800 Qty: 1 0RF Rx Instructions: Take 2 tablets daily. Discontinued sertraline 25 mg tablet 25 mg PO DAILY losartan 50 MG tablet 25 mg PO DAILY ferrous gluconate 324 MG tablet 324 mg PO BID Referrals / Follow Up: Nash Saab DO [Med Staff - Active Staff] - 11/26/22 9:45 am Eliceo Drummond MD [Primary Care Provider] - 10/09/22 4:00 pm Eliceo Khan MD [Non-Staff] - 12/07/22 1:45 pm Disposition Disposition (needs filled in before D/C Order can be placed): Home, Self Care
[2022-10-06] MEDS: Albuterol 2.5 MG/3 ML VIAL.NEB. INHALATION (12:51)
[2022-10-06 12:53] VITALS: PULSE 50; RESP 18
[2022-10-06] MEDS: Gabapentin 300 MG Capsule PO (16:53)
[2022-10-06] MEDS: Aspirin 81 MG TAB.CHEW 162 MG PO (16:53)
[2022-10-06 16:55] LABS: Bedside Glucose 104 mg/dL (74-106)
[2022-10-06 19:50] VITALS: BP 113/53; PULSE 58; RESP 14; TEMP 36.4; O2SAT 95
[2022-10-06] MEDS: Amitriptyline 10 MG Tablet PO (20:04)
[2022-10-06] MEDS: Gabapentin 300 MG Capsule 600 MG PO (20:04)
[2022-10-06] MEDS: Senna/Docusate Sodium 1 Tablet 2 TABLET PO (20:04)
[2022-10-06] MEDS: CARBIDOPA/LEVODOPA CR 50/200 Tablet PO (20:05)
[2022-10-06] MEDS: Pravastatin 40 MG Tablet PO (20:05)
[2022-10-07] MEDS: Enoxaparin 40 MG/0.4 ML Syringe SC (05:56)
[2022-10-07] MEDS: Carbidopa/Levodopa 25/100 Tablet PO (05:57)
[2022-10-07 06:25] LABS: Bedside Glucose 98 mg/dL (74-106)
--- NOTE | 2022-10-07 07:44 | PCM.DC.SUM ---
Providers Date of Admission: 09/24/22 Date of Discharge: 10/07/22 Primary Care Physician: Dr. Eliceo Drummond MD none Reason For Visit: Generalized weakness/dysphagia due to Parkinson's Diagnosis Discharge Diagnosis (1) Debility: Status: Acute Code(s): R53.81 - Other malaise (2) Generalized weakness: Status: Acute Code(s): R53.1 - Weakness (3) Dysphagia: Status: Chronic Code(s): R13.10 - Dysphagia, unspecified Qualifiers: Dysphagia type: unspecified Qualified Code(s): R13.10 - Dysphagia, unspecified (4) Acute bronchitis: Status: Resolved Code(s): J20.9 - Acute bronchitis, unspecified Qualifiers: Bronchitis organism: unspecified organism Qualified Code(s): J20.9 - Acute bronchitis, unspecified (5) COPD with acute exacerbation: Status: Acute Code(s): J44.1 - Chronic obstructive pulmonary disease with (acute) exacerbation Plan: Will go home with Albuterol aerosols and has a appt with Dr. Nash Saab scheduled. Wheezing and air exchange much improved with aerosols. Pursed lip breathing resolved with tx. Due to the PD he was having trouble with inhalers and does much better on the aerosols. Wheezing has resolved. COPD is also likely exacerbated when he takes too big of a sip of water and then starts choking and coughing. He is doing better with swallowing exercises given to him by ST and he will continue to do these daily post DC. (6) Falls: Status: Acute Code(s): W19.XXXA - Unspecified fall, initial encounter Qualifiers: Encounter type: subsequent encounter Qualified Code(s): W19.XXXD - Unspecified fall, subsequent encounter Plan: Due to generalized weakness. He knows that he should have been attending the Delay the Disease program at [facility] but, he could not get motivated to do it. Motivation to get out of rehab and back to [facility] has been good the past week. (7) Parkinson's disease: Status: Chronic Code(s): G20 - Parkinson's disease Plan: Follow up with Dr. Eliceo Khan. Recommended he attend the Delay the Disease exercise program at [facility]. Will have OP PT/OT/ST post DC. (8) Normochromic normocytic anemia: Status: Acute Code(s): D64.9 - Anemia, unspecified Plan: Hemoccult stool was negative. (9) Thrombocytopenia: Status: Resolved Code(s): D69.6 - Thrombocytopenia, unspecified (10) Depression: Status: Acute Code(s): F32.A - Depression, unspecified Qualifiers: Depression Type: reactive depression Qualified Code(s): F32.9 - Major depressive disorder, single episode, unspecified Plan: Recently moved from his home in [place] to [facility] and into independent living at [facility] and now is on a list to move to assisted living. Sertraline was increased to 50 mg daily and Elavil was added at to help with nocturia 4-6 times a night and insomnia. Post void residuals have all been less than 150 on the Elavil. (11) PIEDAD on CPAP: Status: Chronic Code(s): G47.33 - Obstructive sleep apnea (adult) (pediatric); Z99.89 - Dependence on other enabling machines and devices Plan: Wears CPAP. (12) Pure hypercholesterolemia: Status: Chronic Code(s): E78.00 - Pure hypercholesterolemia, unspecified (13) Essential hypertension: Status: Chronic Code(s): I10 - Essential (primary) hypertension (14) DM (diabetes mellitus), type 2: Status: Chronic Code(s): E11.9 - Type 2 diabetes mellitus without complications Qualifiers: Diabetes mellitus complication status: with other specified complication Diabetes mellitus intermodal owner operator truck driver insulin use: without senior care use Qualified Code(s): E11.69 - Type 2 diabetes mellitus with other specified complication Plan: HGBA1C is 6.3 (15) Urinary urgency: Status: Chronic Code(s): R39.15 - Urgency of urination Plan: Nocturia and urgency much improved with amitriptyline 10 g p.o. nightly. UA negative for infection. (16) Former smoker, stopped smoking many years ago: Status: Chronic Code(s): Z87.891 - Personal history of nicotine dependence (17) Bradycardia: Status: Chronic Code(s): R00.1 - Bradycardia, unspecified Plan: Sometimes dips into the high 40's but, mostly the HR in ranging from 50-60. He is asymptomatic. Will defer to cardiology whether or not to decrease/discontinue the Metoprolol. (18) Concentric left ventricular hypertrophy: Status: Acute Code(s): I51.7 - Cardiomegaly Plan 1. Discharge to [facility]. 2. Outpatient PT/OT/ST at [facility] 3. He has follow-up scheduled with Dr. Drummond, Dr. Khan and Dr. Nash Saab. His daughter will schedule an appointment for him with cardiology if he does not have an upcoming appointment. 4. I recommend he attend the Delay the Disease program at [facility] after OP PT/OT is completed. 5. If in another 2 weeks he is still irritable and not motivated to do therapy would consider increasing the Sertraline dose to 75 mg. Medications at Discharge Home Medications furosemide 20 mg tablet 20 mg PO DAILY water 05/24/19 metformin 1,000 mg tablet 1,000 mg PO BIDCM dm 05/24/19 metoprolol succinate 25 mg tablet,extended release 24 hr 25 mg PO DAILY heart 05/24/19 omeprazole 20 mg capsule,delayed release 20 mg PO DAILY gerd 05/24/19 pravastatin 40 mg tablet 40 mg PO QHS cholesterol 05/24/19 carbidopa 25 mg-levodopa 100 mg tablet 2 tab PO TID parkinson's 01/22/22 carbidopa ER 50 mg-levodopa 200 mg tablet,extended release 1 tab PO QHS parkinson's 01/22/22 gabapentin 300 mg capsule 300 mg .Route .COMPLEX 09/23/22 acetaminophen 325 mg tablet 650 mg (2 x 325 mg) PO Q6H PRN PRN Pain 1-10 Or Fever>100.7 #1 TAB 09/24/22 albuterol sulfate 2.5 mg/3 mL (0.083 %) solution for nebulization 2.5 mg (3 mL) inhalation Q2H PRN PRN SOB/wheezing #100 mL 10/06/22 amitriptyline 10 mg tablet 10 mg PO 2100 #30 tabs 10/06/22 amlodipine 2.5 mg tablet 2.5 mg PO DAILY bp #30 tabs 10/06/22 ascorbic acid (vitamin C) 500 mg tablet 1,000 mg (2 x 500 mg) PO DAILY@1200 #30 tabs 10/06/22 aspirin 81 mg chewable tablet 162 mg (2 x 81 mg) PO DAILY@1800 heart health #1 TAB 10/06/22 ferrous gluconate 324 mg (37.5 mg iron) tablet 324 mg PO DAILY@1200 #30 tabs 10/06/22 ipratropium bromide 42 mcg (0.06 %) nasal spray 2 spray NASAL BID #1 BOTTLE 10/06/22 losartan 50 mg tablet 50 mg PO DAILY #30 tabs 10/06/22 sertraline 50 mg tablet 50 mg PO DAILY #30 tabs 10/06/22 Hospital Course Operations None Procedures - (Modified barium swallow Diet: Regular Textures and Thin Liquids Comment: Intermittent cough and re-swallow. Compensatory Strategies: Small Bites, Small Sips, No Straws, Slow Rate and Sitting upright Recommend Repeat Modified Barium Swallow: Yes Need for Skilled Speech Therapy Services: Yes Comme) Summary of Care Provided Minutes Spent on Discharge: 45 Hospital Course: RM CHAU, is a 82 YO M with a PMH of PD, CAD, diabetes mellitus type 2, essential hypertension, hyperlipidemia,depression, history of penile cancer, peripheral arterial disease, history of prostate cancer and hx of ventricular ectopy who presented to the ED at [facility] on 09/23/2022 with complaints of increased generalized weakness and disorientation for the preceding 3 to 4 days. He was unable to get out of bed without assist of 2 on the morning of presentation to the emergency room. He had been sleeping in the recliner for the preceding few days because it was easier for him to get up. Work-up in the emergency department was unremarkable. He was admitted to the hospitalist service to arrange for transfer to an acute rehab unit or SNF for therapy to increase strength to hopefully allow him to return to independent living at [facility] with his . He was transferred to the acute inpatient rehab unit at [facility] on 09/24/2022 for 3 hours of therapy daily to restore function/independence to allow him to return to independent living. At presentation Rm had pursed lip breathing and scattered wheezing with cough, sore throat and rhinorrhea. He told me this had started 3-4 days prior to presentation to the ED. He was a smoker for many years and he has PIEDAD. He denied ever having PFT's. He was frequently heard clearing his throat in his room, meka with eating or drinking. A respiratory panel was negative and he was AF with a normal WBC count and unremarkable diff. He was started on Atrovent nasal spray which helped considerably with the rhinorrhea and post nasal drainage. He was also started on Duoneb aerosols Q 4 H WA. Air exchange improved significantly and the wheezing completely resolved. He no longer had pursed lip breathing. The aerosols were made PRN and he was started on a Fluticasone/Salmeterol inhaler. He had a MBS that showed oropharyngeal dysphagia and he was keep on soft and bite sized food and told not to use a straw, take small bites and sips with an intermittent cough and swallow to clear his throat. mR did better with this strategy and has been doing his swallowing exercises in his room but, He still gulps water when he is taking his pills and this precipitates a coughing paroxysm. He does better taking his pills one at a time in applesauce or yogurt. After he was converted to the inhaler air exchange declined and wheezing and pursed lip breathing returned. He was restarted on the aerosols and things improved again. He is being sent home on aerosols. Rm's family related to me that Rm had been short tempered, irritable and yelling, mostly at his at home. He had been started on Sertraline [address] Khan and he was tolerating this medication without adverse SE. He has had a lot of change in his life recently and he was frustrated. He could not get motivated to attend the exercise program at [facility], Delay the Disease, to keep himself fit. He c/o insomnia and was getting up 4-6 times a night to urinate. Sertraline was increased to 50 mg and amitriptyline 10 mg was added at at bedtime. With the amitriptyline the nocturia significantly decreased and prior to discharge he is getting up usually 1 time at night to urinate. Postvoid residuals were checked and all are less than 200. He also had a UA that was negative for infection at admission. He is sleeping better and feels rested in the AM. He has had no adverse side effects with the increase in the sertraline dose and his family has noted that he is less irritable. He has not been irritable with staff in rehab at all and is always in a good mood and cooperative. He gets frustrated with his [facility], who has dementia, when she gives misinformation and gets things wrong. In addition to the medications I think he would benefit from psychotherapy to learn how to deal with his chronic disease and his 's dementia. Rm did very well in therapy and was always pleasant, talkative and cooperative. At the time of discharge he was supervision/set up for eating/grooming, toilet transfer/toileting and standby assist for bathing and tub/shower transfer. He needs minimal assistance with upper body and lower body dressing and [facility] is able to help him with this. He has ambulated up to 500 feet with a rollator walker at contact-guard assist/standby assist on various surfaces. He is able to get in/out of bed at standby assist but would benefit from a bed rail. The has arranged for a hospital bed for him. Bed mobility is SBA. He is able to ascend/descend 5 steps of various heights at contact-guard assist and 1 curb step. He continues to need maximum cueing to adhere to strategies to ensure safe swallow and will have speech therapy at discharge. He was also given swallowing exercises and has been compliant in doing these in his room by himself. He also continues to need min to max cues for memory, attention and executive function tasks. He was on nectar thick liquids for a couple days and the coughing and clearing of his throat decreased markedly but, so did his fluid intake. He is able to cough and clear the secretions at this time and hopefully will continue to improve with additional Edwin was discharged to independent living at [facility] on 10/07/2022 and will have outpatient PT/OT/ST at [facility]. At the conclusion of PT/OT at [place] we recommend he attend the delay the disease program for Parkinson's patients at [facility]. Appointments with Dr. Drummond, Dr. Khan and Dr. Nash Saab were made for Rm prior to his discharge. His last visit with Rm SOLARES from cardiology was in December 2021 and he is due for follow-up. His heart rate generally ranges from 50-60 but occasionally dips into the high 40s. He has been asymptomatic. Will defer to cardiology to decide whether or not to discontinue metoprolol. Physical Exam Const alert, oriented x3 and no apparent distress General Appearance: cooperative Orientation / Consciousness: Negative for confused HEENT normocephalic, head/scalp atraumatic, hearing grossly normal bilaterally and moist oral mucous membranes Eyes EOMs intact bilaterally, conjunctivae normal and no scleral icterus Eyes Narrative: No discharge from the eyes and no mattering of the eyelashes. Neck no lymphadenopathy and supple Neck Narrative: BL carotid bruits, L>R General: trachea midline Chest Chest: symmetrical chest wall rise Resp normal respiratory effort, no use of accessory muscles and clear to auscultation bilaterally Resp Narrative: Air exchange is much better than yesterday AM and he is not coughing or clearing his throat. HAs been getting PRN aerosols and will go home on Albuterol aerosol 3 times daily and Q 2H PRN SOB or wheezing. Effort and Inspection: able to speak in complete sentences; Negative for tachypneic or labored Cardio regular rhythm and no gallops Cardio Narrative: No change in the systolic MM at the 2nd RICS, LLSB and the apex. HR is in the low 50's currently and he denies SOB, lightheadedness. He has no swelling in his ankles. GI normal to inspection, nondistended, normoactive bowel sounds, soft to palpation, non-tender and non-distended GI Narrative: Denies constipation and diarrhea. no CVA tenderness Narrative: Denies N/V. Denies dysuria. PVR's are 0. Extremity normal to inspection, normal capillary refill and no calf tenderness General Extremity: Negative for edema Skin no wounds and no jaundice General Skin Exam: no breakdown Rashes: no rashes Neuro oriented x3, CN's II-XII intact bilaterally and moves all extremities Neuro Narrative: Slow deliberate speech. Monotone with little fluctuation of the voice. Projecting well. Masked facies and decreased blink. No tremors. Psych mental status grossly normal, thought process normal, cooperative and affect normal Psych Narrative: Sleeping well and has a good appetite. Has not been irritable with staff but, it is generally his family that he is short tempered with. He still needs cueing to remember his swallowing precautions and also needs cueing for higher executive functions and memory. In everyday conversation he does quite well and his distant memory is good. Appearance: grossly normal, appropriate and well kempt Attitude: calm and No agitated Activity / Motor Behavior: appropriate eye contact; Negative for disorganized or restless Weight / BMI Weight Weight: 199 lb 14.177 oz Body Mass Index (BMI) 28.6 ABG / Lab / Microbiology Data 10/06/22 05:04 10/06/22 05:04 Laboratory: Laboratory Results - last 24 hr 10/06/22 16:31: POC Glucose 104 10/07/22 05:54: POC Glucose 98 Microbiology: Microbiology 09/29/22 23:09 Stool Stool Occult Blood (MILVIA) - Final 09/25/22 16:05 Mucosa - Nose Respiratory Panel (PCR) - Final D/C Instructions Discharge Diet: Low fat / Low cholesterol and - (Low salt. No straws, small bites and small sips. Cough intermittently to clear secretions. You may want to take your pills with applesauce o yogurt because they seem to go down easier. Take 1 pill at a time. ) Weight Bearing Status: Full weight bearing Call your doctor if you observe: Fever of 101 or Higher, Numbness or Tingling, Inability to urinate, Inability to have a bowel movement, Shortness of breath, Dizziness, Fainting spells, Swelling in the ankles, Chest pain, Prolonged hiccupping, Increased palpitations (irregular heartbeat), Calf discomfort, Uncontrolled pain and - (STROKE symptoms: facial droop, slurred speech, inability to get words out, weakness on 1 side of the body and not the other, numbness on 1 side of the body and not the other, inability to maintain your balance sitting or standing, vertigo. ) Pending Tests Upon Discharge: none Please Follow Up With: Eliceo Khan MD When: you will also need to follow up with Dr. Drummond for primary care and I want you to follow up with a lung doctor to get Pulmonary function tests. Meaningful Use Info Meaningful Use Diagnoses (Choose all that apply): None applicable Discharge Plan Admission Admit Date/Time: 09/24/22 17:18 Primary Reason for Your Visit: Debility due to Parkinson's disease with dysphagia and falls. Attending Provider: Priscilla Rod Primary Care Provider: Eliceo Drummond Instructions Patient Instructions: Pulmonary Function Tests, Depression Affects Your Mind ..., Depression and the Brain's ..., Understanding Parkinson Disease Additional Instructions / Restrictions: 1. You have been a letitia to have on rehab and we have all been impressed with your abilities. With Parkinson's disease you truly lose it if you don't use it. I would like you to do your home exercises at least 5-6 days a week. The Delay the Disease program at [place] is a good one and the goal is to delay progression of Parkinson's disease symptoms as long as possible. You have some problems with swallowing and it is very important to do the swallowing exercises every day so that you can continue drinking thin liquids instead of thickened liquids. Thin liquids are one of the hardest things to swallow because they go down too quickly and then you cough and choke. It is very important not to gulp fluids but, take small sips and make sure you swallow before taking another sip. The same is true with swallowing food.....small bites and swallow twice before taking another bite. These actions will help prevent food and liquids from going down the wrong pipe and causing pneumonia. 2. You have had a lot of change in your life recently. You moved from your home to [place] and into [facility] and now you are awaiting a place in assisted living. Moving is very stressful and especially if you are moving from independent living in a house to a fdc. Many people get depressed when this happens. The symptoms of depression include not sleeping well or sleeping too much, changes in appetite, losing interest in the things you normally like to do, not wanting to socialize, getting irritable and snapping at loved ones and friends and then feeling remorse about it, losing your patience easily. You have some of these symptoms Rm. you are on an anti-depressant called Sertraline, also called Zoloft. We increased the dose from 25 mg at admission to 50 mg daily. You have been tolerating this with no adverse side effects. I also added a drug called amitriptyline, also called Elavil, at night to help you sleep and also to help decrease the number of times you get up at night to urinate and this has worked well for you. We will continue this medication at Discharge. 3. When you first came to rehab you had some difficulty breathing. You were wheezing and you had pursed lip breathing. You had diminished breath sounds. We started you on some aerosolized breathing medication and you no longer had pursed lip breathing and you had much better air exchange and no wheezing. When we stopped the aerosol treatments the wheezing came back. I am going to send you home with an aerosol machine and I want you to use it 3 times a day. If you are feeling short of breath you can do an extra 1-2 treatments. 4. If your cough changes and you are bringing up yellow or green or bloody sputum then you need to call Dr. Drummond and get an appt as soon as possible because you may have pneumonia. If you have a fever, sweats or shaking chills and shortness of breath go right to the ER. Confusion can also be a sign of infection as we get older. 5. If you or your family has any questions after you leave rehab please do not hesitate to call me. OFFICE: [phone] CELL: [phone] REHAB: [phone] Have a wonderful rest of the summer Rm. Discharge Orders/Prescriptions Prescriptions: New losartan 50 mg Tablet 50 mg PO DAILY Qty: 30 0RF albuterol sulfate 2.5 mg /3 mL (0.083 %) Solution For Nebulization 2.5 mg inhalation Q2H PRN PRN (Reason: SOB/wheezing) Qty: 100 0RF Rx Instructions: take an aerosol 3 times a day. May take 1 or 2 extra if short of breath. ascorbic acid (vitamin C) 500 mg Tablet 1,000 mg PO DAILY@1200 Qty: 30 0RF Rx Instructions: Take the Vitamin C with iron at lunch every day. amitriptyline 10 mg Tablet 10 mg PO 2100 Qty: 30 0RF sertraline 50 mg Tablet 50 mg PO DAILY Qty: 30 0RF ferrous gluconate 324 mg (37.5 mg iron) Tablet 324 mg PO DAILY@1200 Qty: 30 0RF Rx Instructions: TAke the iron with vitamin C to increase absorption of the iron. ipratropium bromide 42 mcg (0.06 %) Peggs,Non-Aerosol 2 spray NASAL BID Qty: 1 0RF Continued carbidopa-levodopa 25-100 mg tablet 2 tab PO TID carbidopa-levodopa 50-200 mg tablet extended release 1 tab PO QHS pravastatin 40 MG tablet 40 mg PO QHS metformin 1,000 MG tablet 1,000 mg PO BIDCM omeprazole 20 MG capsule 20 mg PO DAILY furosemide 20 MG tablet 20 mg PO DAILY metoprolol succinate 25 MG tablet 25 mg PO DAILY gabapentin 300 mg capsule 300 mg .ROUTE .COMPLEX Rx Instructions: 300 mg Dinner; Take 1 capsule (300mg at dinner time and 2 capsules (600mg) at bed time acetaminophen 325 mg Tablet 650 mg PO Q6H PRN PRN (Reason: Pain 1-10 Or Fever>100.7) Qty: 1 0RF amlodipine 2.5 MG tablet 2.5 mg PO DAILY Qty: 30 0RF aspirin 81 MG tablet,chewable 162 mg PO DAILY@1800 Qty: 1 0RF Rx Instructions: Take 2 tablets daily. Discontinued sertraline 25 mg tablet 25 mg PO DAILY losartan 50 MG tablet 25 mg PO DAILY ferrous gluconate 324 MG tablet 324 mg PO BID Referrals / Follow Up: Nash Saab DO [Med Staff - Active Staff] - 11/26/22 9:45 am Eliceo Drummond MD [Primary Care Provider] - 10/09/22 4:00 pm Eliceo Khan MD [Non-Staff] - 12/07/22 1:45 pm Disposition Disposition (needs filled in before D/C Order can be placed): Home, Self Care Charges/Coding Visit Charges Inpatient E&M: 57253 Disch Hosp >30min
[2022-10-07] MEDS: Fluticasone/Salmeterol 232-14 Inhaler 1 PUFF INHALATION (07:46)
[2022-10-07] MEDS: Ipratropium Bromide 0.06% NASAL SPRAY 2 SPRAY NASAL (07:46)
[2022-10-07 07:47] VITALS: BP 144/41; PULSE 48
[2022-10-07] MEDS: amLODIPine 2.5 MG Tablet PO (07:47)
[2022-10-07] MEDS: Loratadine 10 MG Tablet 5 MG PO (07:47)
[2022-10-07] MEDS: Furosemide 20 MG Tablet PO (07:47)
[2022-10-07] MEDS: metFORMIN HCl 1,000 MG Tablet 1000 MG PO (07:47)
[2022-10-07] MEDS: Losartan Potassium 50 MG Tablet PO (07:47)
[2022-10-07] MEDS: Metoprolol(XL)Succ 25 MG Tablet PO (07:47)
[2022-10-07] MEDS: Pantoprazole Sodium 20 MG Tablet PO (07:47)
[2022-10-07] MEDS: Sertraline 50 MG Tablet PO (07:48)
[2022-10-07 08:47] VITALS: BP 144/41; PULSE 48; RESP 16; TEMP 36.3; O2SAT 96
[2022-10-07 09:14] VITALS: BP 144/41; PULSE 48; RESP 16; TEMP 35.8; O2SAT 96
== END 2022-10-07 09:21 | disposition home or self-care (01) | DRG 57 ==
PROVIDERS: Admitting Provider Internal Medicine; PCP Family Medicine; Visit Provider Internal Medicine
DX: G20 Parkinson's disease (principal); J44.1 Chronic obstructive pulmonary disease with (acute) exacerbation; D69.6 Thrombocytopenia, unspecified; E11.51 Type 2 diabetes mellitus with diabetic peripheral angiopathy without gangrene; D64.9 Anemia, unspecified; E78.00 Pure hypercholesterolemia, unspecified; F02.80 Dementia in other diseases classified elsewhere, unspecified severity, without behavioral disturbance, psychotic disturbance, mood disturbance, and anxiety; J20.9 Acute bronchitis, unspecified; I10 Essential (primary) hypertension; F32.A Depression, unspecified; G47.33 Obstructive sleep apnea (adult) (pediatric); I25.10 Atherosclerotic heart disease of native coronary artery without angina pectoris; K21.9 Gastro-esophageal reflux disease without esophagitis; R19.7 Diarrhea, unspecified; Z95.1 Presence of aortocoronary bypass graft; Z79.82 Long term (current) use of aspirin; Z87.891 Personal history of nicotine dependence; Z79.84 Long term (current) use of oral hypoglycemic drugs; Z79.899 Other long term (current) drug therapy; R13.12 Dysphagia, oropharyngeal phase
CPT/HCPCS: 36415; 70450; 71046; 74230; 80048; 80053; 81001; 82274; 82962; 83036; 83735; 84100; 84484; 85014; 85018; 85025; 85027; 87633; 92507; 92523; 92526; 92610; 92611; 93005; 94640; 94668; 96361; 96372; 96374; 97110; 97112; 97116; 97162; 97166; 97530; 97535; 97802; 99221; 99285; J7030; J7040; A4216; G0378

== ENCOUNTER 2023-04-07 14:01 | Emergency (ER) | payer MEDICARE, OTHER, SELFPAY ==
[2023-04-07 14:04] VITALS: BP 184/76; PULSE 77; RESP 22; TEMP 36.1; O2SAT 97; BMI 30.7
--- NOTE | 2023-04-07 14:31 | EDS_ITS ---
HPI HPI - Fall History of Present Illness Chief Complaint: Fall PFSH PFSH Medical History Atherosclerotic heart disease of [place] coronary artery without angina pectoris Bladder cancer Concentric left ventricular hypertrophy COPD (chronic obstructive pulmonary disease) Depression DM (diabetes mellitus), type 2 Dysphagia Essential hypertension Former smoker, stopped smoking many years ago History of left heart catheterization (LHC) (~01/03/19) History of left heart catheterization (LHC) (~05/25/19) HLD (hyperlipidemia) Mild left atrial enlargement Murmur, cardiac Normochromic normocytic anemia NSTEMI (non-ST elevated myocardial infarction) PIEDAD on CPAP Parkinson's disease Penile ca Peripheral arterial disease Prostate ca Pure hypercholesterolemia Unstable angina Urinary urgency Ventricular ectopy Home Medications metformin 1,000 mg tablet 1,000 mg PO BIDCM DIABETES 05/24/19 [History Last Taken 05/24/19] omeprazole 20 mg capsule,delayed release 20 mg PO DAILY GERD 05/24/19 [History Last Taken 05/24/19] pravastatin 40 mg tablet 40 mg PO QHS CHOLESTEROL 05/24/19 [History Last Taken 05/22/19] carbidopa 25 mg-levodopa 100 mg tablet 2 tab PO TIDCM [place] 01/22/22 [History Last Taken Unknown] carbidopa ER 50 mg-levodopa 200 mg tablet,extended release 1 tab PO QHS [place] 01/22/22 [History Last Taken Unknown] gabapentin 300 mg capsule 600 mg PO QHS NERVE PAIN 09/23/22 [History Last Taken Unknown] amlodipine 2.5 mg tablet 2.5 mg PO DAILY BLOOD PRESSURE #30 tabs 10/06/22 [Rx Last Taken Unknown] ipratropium bromide 42 mcg (0.06 %) nasal spray 2 spray NASAL BID RUNNY NOSE #1 BOTTLE 10/06/22 [Rx Last Taken Unknown] losartan 50 mg tablet 50 mg PO DAILY BLOOD PRESSURE #30 tabs 10/06/22 [Rx Last Taken Unknown] sertraline 50 mg tablet 50 mg PO DAILY DEPRESSION #30 tabs 10/06/22 [Rx Last Taken Unknown] ascorbic acid (vitamin C) 500 mg tablet 500 mg PO 1200 SUPPLEMENT 11/26/22 [History Last Taken Unknown] ferrous sulfate 325 mg (65 mg iron) tablet 325 mg PO 1200 SUPPLEMENT 11/26/22 [History Last Taken Unknown] loratadine 10 mg tablet 10 mg PO DAILY PRN ALLERGIES 11/26/22 [History Last Taken Unknown] acetaminophen 325 mg tablet 650 mg PO Q4H PRN PAIN 04/07/23 [History Last Taken Unknown] amitriptyline 10 mg tablet 10 mg PO QHS DEPRESSION 04/07/23 [History Last Taken Unknown] aspirin 81 mg chewable tablet 162 mg PO 1200 HEART HEALTH 04/07/23 [History Last Taken Unknown] gabapentin 300 mg capsule 300 mg PO DINNER NERVE PAIN 04/07/23 [History Last Taken Unknown] oxycodone 5 mg capsule 5 mg PO Q6H PRN pain 3 days #12 caps 04/07/23 [Rx Last Taken Unknown] Allergy/AdvReac Type Severity Reaction Status Date / Time atorvastatin [From Lipitor] Allergy Rash Verified 04/07/23 14:04 codeine Allergy Rash Verified 04/07/23 14:04 Family History Father CAD (coronary artery disease) Brother CAD (coronary artery disease) Mother CAD (coronary artery disease) Surgical History History of atherectomy History of prostatectomy History of three vessel coronary artery bypass Hx of heart artery stent Presence of coronary angioplasty implant and graft S/P CABG x 3 (~07/21/16) S/P PTCA (percutaneous transluminal coronary angioplasty) Social History (Updated 11/26/22 @ 10:40 by Peg Prince) household members: spouse housing: other details: Independent living apartment with spouse Smoking Status: Former smoker alcohol intake: current alcohol intake frequency: holidays/special occasions only substance use type: does not use caffeine: Yes Type: coffee Number of servings: 2 what type of physical activity do you participate in: none frequency: 1-2 times per week seatbelt use: always do you feel safe at home: Yes EXAM Physical Exam Const Vital Signs: 04/07/23 14:04 04/07/23 14:10 Temperature 97 F L Temperature Source Temporal Pulse Rate 77 Respiratory Rate 22 H Respiratory Effort Normal Non-Labored Respiratory Depth Normal Respiratory Pattern Normal Blood Pressure 184/76 H Blood Pressure Mean 112 Pulse Ox 97 Oxygen Delivery Method Room Air Room Air MDM MDM MDM Narrative Medical decision making narrative: HISTORY OF PRESENT ILLNESS: 82-year-old male here for fall. Notes he fell earlier this morning. Notes his pain is back and injured his head. Denies blood thinner use REVIEW OF SYSTEMS: Pertinent positives: Back pain, head trauma Pertinent negatives: LOC, chest pain, shortness of breath, focal weakness PHYSICAL EXAM: Nursing triage notes reviewed, Vital signs reviewed Primary Survey Airway: Intact Breathing: Bilateral breath sounds Circulation: Palpable bilateral femorals, Palpable bilateral radial, Palpable bilateral DP and Palpable bilateral PT Disability / Spine precautions GCS Score: Eye Openin Verbal Response: 5 Motor Response: 6 Secondary Survey Constitutional: Please see MDM Head: Abrasion noted to the posterior scalp midface stable, NO jaw malocclusion, No Cephalohematoma, and No Lacerations noted Eye: Pupils equal round and reactive to light, Extraocular muscles intact and No periorbital ecchymosis or stepoff, no evidence of entrapment ENT: Oropharynx clear, no lacerations, no hemotympanum, no raccoon eyes or linares sign Cervical spine / Neck: No cervical spine bony tenderness, crepitance, or stepoff deformity Trachea midline Lungs: Clear to auscultation, No asymmetric rise and No crepitus, no flail chest Cardiac: Regular rate and rhythm and No murmurs Abdomen: Soft, Nontender and No rebound Pelvis: Pelvis stable to compression : No evidence of genital injury Back: N TTP to thoracic lumbar spine. Neuro: At baseline, intact strength and sensation in bilateral upper and lower extremities. 2+ patellar reflexes bilaterally. Extremities: NO gross Deformities Psych: Normal affect Nursing triage notes reviewed, Vital signs reviewed MEDICAL DECISION MAKING: Chief Complaint: Fall, head trauma back pain Factors affecting care: COPD, hyperlipidemia, CAD, prostate cancer, CPAP PIEDAD, type 2 diabetes Social determinants of health: assisted patient History obtained from others: EMS MDM Narrative: She was hemodynamically stable, afebrile, nontoxic-appearing. He was alert, oriented to person and place but not time. I considered the following differential diagnosis: Primary secondary trauma surveys concerning for intracranial normality, axial skeleton fracture dislocation given fall Wound care was provided. Imaging was reviewed. Per radiologist there is no evidence of intracranial, cervical thoracic lumbar spine abnormalities. Tertiary exam with ongoing back pain. Patient was treated with oral narcotics which improved his pain only minimally. He is still not able to ambulate. He was offered admission however we were able to communicate with the patient's assisted living facility. They state that he is appropriate for return to assisted facility as they have the ability to place him in a intermediate status where he will see physical therapy constant monitoring and help with ADLs. He was given a prescription for oxycodone to help with pain control. Risk and benefits of admission versus discharge back to intermediate were discussed. Patient, family and I agreed this more beneficial return to skilled nurse fee ling intermediate transition rather than staying in the hospital. The patient and/or family, caregivers express understanding. The patient and/or family, caregivers agrees with the plan. Shared decision making: I will have a discussion with the patient and or visitors regarding risk/benefits of further testing or admission. They will be made aware of of the risk/benefits inherent in this decision they will be given the opportunity to voice understanding. Total critical care time today provided was at least 0 minutes. This excludes separately billable procedures. Critical care time (if documented) is secondary to the patient having high probability of clinically significant/life threatening deterioration in the patient's condition which required my urgent intervention. Impression: 1. Mechanical fall 2. Back contusion 3. Acute abnormality Dispo: Discharge back to assisted living facility Radiography Diagnostic Testing: Clinical Impression(s) from Imaging Studies Brain CT 04/07/23 15:15 IMPRESSION: Chronic involutional changes of the brain. Electronically Signed: Allen Wahl MD at 15:37 EST , Cervical Spine CT 04/07/23 15:15 IMPRESSION: Multilevel degenerative changes, as described above. Spinal stenosis. Electronically Signed: Allen Wahl MD at 15:36 EST , Lumbar Spine CT 04/07/23 15:15 IMPRESSION: Multilevel degenerative changes, as described above. Electronically Signed: Allen Wahl MD at 15:40 EST , Thoracic Spine CT 04/07/23 15:15 IMPRESSION: Multilevel disc space narrowing and spondylosis. Increased kyphosis. Electronically Signed: Allen Wahl MD at 15:38 EST , Discharge Plan Triage Chief Complaint: Fall ED Provider: Cayetano García Dx/Rx/DC Orders Clinical Impression: Contusion Instructions: ED Back Contusion, ED Mechanical Fall Prescriptions: New oxycodone 5 mg capsule 5 mg PO Q6H PRN (Reason: pain) 3 Days Qty: 12 0RF No Action carbidopa-levodopa 25-100 mg tablet 2 tab PO TIDCM carbidopa-levodopa 50-200 mg tablet extended release 1 tab PO QHS ascorbic acid (vitamin C) 500 mg tablet 500 mg PO 1200 loratadine 10 mg tablet 10 mg PO DAILY PRN (Reason: ALLERGIES ) ferrous sulfate 325 mg (65 mg iron) tablet 325 mg PO 1200 pravastatin 40 MG tablet 40 mg PO QHS metformin 1,000 MG tablet 1,000 mg PO BIDCM omeprazole 20 MG capsule 20 mg PO DAILY gabapentin 300 mg capsule 600 mg PO QHS Rx Instructions: TAKE ONE CAPSULE (300MG) BY MOUTH AT DINNER AND TWO CAPSULES (600MG) AT BEDT RETA losartan 50 mg Tablet 50 mg PO DAILY Qty: 30 0RF sertraline 50 mg Tablet 50 mg PO DAILY Qty: 30 0RF ipratropium bromide 42 mcg (0.06 %) [place],Non-Aerosol 2 spray NASAL BID Qty: 1 0RF amlodipine 2.5 MG tablet 2.5 mg PO DAILY Qty: 30 0RF gabapentin 300 mg capsule 300 mg PO DINNER Rx Instructions: TAKE ONE CAPSULE (300MG) BY MOUTH AT DINNER AND TWO CAPSULES (600MG) AT BEDTIME acetaminophen 325 mg Tablet 650 mg PO Q4H PRN (Reason: PAIN ) amitriptyline 10 mg Tablet 10 mg PO QHS aspirin 81 MG tablet,chewable 162 mg PO 1200 Primary Care Provider: Eliceo Drummond Referrals: Eliceo Drummond MD [Primary Care Provider] - Activity Restrictions/Additional Instructions: Thank you for trusting us with your care today! Please take Tylenol (2 pills, 650 mg), ibuprofen (2 pills, 400 mg) every 6 hours as needed for pain and fever control. If this regimen does not control your pain please take oxycodone as needed and as directed for breakthrough pain. Please return to the emergency department if your symptoms change or worsen. Pacifically develop bowel or bladder incontinence, urinary tension, focal numbness or weakness in your legs, worsening pain. Please follow with your primary care physician for further outpatient evaluation and management. Disposition Disposition: Home, Self Care
[2023-04-07] MEDS: Acetaminophen 325 MG Tablet PO (15:01)
--- NOTE | 2023-04-07 15:15 | CT_ITS ---
STUDY: CT LUMBAR SPINE WITHOUT CONTRAST REASON FOR EXAM: Male, 82 years old. Back pain RADIATION DOSAGE (If Supplied By Facility): CTDIvol = ( 35.27 ) mGy, DLP = ( 2576.04 ) mGycm TECHNIQUE: The patient was scanned in a multi detector CT scanner. High resolution transaxial imaging was performed. Images were obtained from L1 to S1 vertebral level. Sagittal and coronal images were reconstructed. Individualized dose optimization techniques were used for this CT. COMPARISON: None FINDINGS: Normal lumbar lordosis. There is no substantial scoliosis. Multilevel spondylosis. L1-2: Spondylosis. Mild degree of disc space narrowing. L2-3: Mild disc space narrowing. Spondylosis. L3-4: Spondylosis. Facet joint osteoarthritis and hypertrophy with bilateral neural foraminal stenosis. L4-5: Mild disc space. Diffuse posterior disc bulge. Hypertrophy of the ligamenta flava and facet joints in keeping with spinal stenosis. L5-S1: Facet joint osteoarthritis and hypertrophy. Calcification of the aorta. CT/Spine Lumbar without Contrast IMPRESSION: Multilevel degenerative changes, as described above. Electronically Signed: Allen Wahl MD at 15:40 EST ,
--- NOTE | 2023-04-07 15:15 | CT_ITS ---
STUDY: CT BRAIN WITHOUT CONTRAST REASON FOR EXAM: Male, 82 years old. Fall, head trauma RADIATION DOSAGE (If Supplied By Facility): CTDIvol = ( 44.99 ) mGy, DLP = ( 846.73 ) mGycm TECHNIQUE: Transaxial CT imaging of the brain was performed without administration of intravenous contrast material. Individualized dose optimization techniques were used for this CT. COMPARISON: Comparison is made with prior study September 23, 2022. FINDINGS: Small scallop hematoma overlying the posterior medial aspect of the left occipital bone. Normal calvarium. There is mild cerebral atrophy with widening of the extra-axial spaces and ventricular dilatation. There are areas of decreased attenuation within the white matter tracts of the supratentorial brain, consistent with microvascular disease changes. Normal basal ganglia and thalami. Normal brainstem. Normal cerebellum. There is no intracranial hemorrhage. There are no findings of an acute ischemic infarction. Atherosclerotic calcification of the cavernous portions of the internal carotid artery bilaterally. Normal visualized paranasal sinuses. CT/Brain/Head without Contrast IMPRESSION: Chronic involutional changes of the brain. Electronically Signed: Allen Wahl MD at 15:37 EST ,
--- NOTE | 2023-04-07 15:15 | CT_ITS ---
STUDY: CT THORACIC SPINE WITHOUT CONTRAST REASON FOR EXAM: Male, 82 years old. Back pain RADIATION DOSAGE (If Supplied By Facility): CTDIvol = ( 35.27 ) mGy, DLP = ( 2576.04 ) mGycm TECHNIQUE: The patient was scanned in a multi detector CT scanner. High resolution imaging was performed. Images were obtained from T1 to L1 vertebral level. Sagittal and coronal images were reconstructed. Individualized dose optimization techniques were used for this CT. COMPARISON: None. FINDINGS: There is multilevel endplate spondylosis of the cervical spine. There is an increased kyphosis of the thoracic spine. There is no substantial scoliosis. There is multilevel endplate spondylosis of the thoracic spine. There is multilevel degenerative disc disease with loss of the disc space heights. The soft tissue structures are unremarkable. CT/Spine Thoracic without Contras IMPRESSION: Multilevel disc space narrowing and spondylosis. Increased kyphosis. Electronically Signed: Allen Wahl MD at 15:38 EST ,
--- NOTE | 2023-04-07 15:15 | CT_ITS ---
STUDY: CT CERVICAL SPINE WITHOUT CONTRAST REASON FOR EXAM: Male, 82 years old. Fall, neck pain RADIATION DOSAGE (If Supplied By Facility): CTDIvol = ( 27.04 ) mGy, DLP = ( 633.07 ) mGycm TECHNIQUE: High resolution transaxial imaging was performed without contrast material. Sagittal and coronal images were reconstructed. Individualized dose optimization techniques were used for this CT. COMPARISON: None FINDINGS: Normal craniovertebral junction. There are degenerative changes of the anterior atlantoaxial articulation. Normal odontoid process. There is straightening of the normal cervical lordosis. Multilevel spondylosis. C2-3: Anterior spondylosis. Facet joint osteoarthritis and hypertrophy. Mild degree of bilateral neural foraminal stenosis. C3-4: Spondylosis. Facet joint osteoarthritis and hypertrophy worse on the right side with uncovertebral arthrosis and bilateral neural foraminal stenosis worse on the right side. C4-5: Facet joint osteoarthritis and hypertrophy worse on the right side causing severe right neuroforaminal stenosis and moderate left neural foraminal stenosis. C5-6: Disc space narrowing. Spondylosis. Uncovertebral arthrosis. Facet joint osteophytes and hypertrophy worse on the right side causing a marked degree of neural foraminal stenosis. C6-7: Disc space narrowing and spondylosis. C7-T1: Normal endplates. Normal disc height and morphology. Normal central canal and intervertebral neuroforamina. Atherosclerotic calcification of the carotid arteries bilaterally. CT/Spine Cervical without Contras IMPRESSION: Multilevel degenerative changes, as described above. Spinal stenosis. Electronically Signed: Allen Wahl MD at 15:36 EST ,
[2023-04-07] MEDS: oxyCODONE 5 MG Tablet PO (16:05)
[2023-04-07] MEDS: Ibuprofen 200 MG Tablet PO (16:05)
--- NOTE | 2023-04-07 17:37 | NURSING ---
CALLED [facility], ETA IS 30 MIN
[2023-04-07 18:13] VITALS: BP 164/73; PULSE 87; RESP 19; O2SAT 99
== END 2023-04-07 18:16 | disposition home or self-care (01) ==
PROVIDERS: Emergency Provider Emergency Medicine; PCP Family Medicine; Visit Provider Emergency Medicine
DX: S20.229A Contusion of unspecified back wall of thorax, initial encounter (principal); E11.51 Type 2 diabetes mellitus with diabetic peripheral angiopathy without gangrene; J44.9 Chronic obstructive pulmonary disease, unspecified; E78.5 Hyperlipidemia, unspecified; Z87.891 Personal history of nicotine dependence; I25.10 Atherosclerotic heart disease of native coronary artery without angina pectoris; W19.XXXA Unspecified fall, initial encounter; Z85.51 Personal history of malignant neoplasm of bladder; I10 Essential (primary) hypertension; I25.2 Old myocardial infarction; I5A Non-ischemic myocardial injury (non-traumatic); Z85.46 Personal history of malignant neoplasm of prostate; Z79.899 Other long term (current) drug therapy; Z79.84 Long term (current) use of oral hypoglycemic drugs; G20.A1 Parkinson's disease without dyskinesia, without mention of fluctuations; F32.A Depression, unspecified; Z79.82 Long term (current) use of aspirin; Z95.5 Presence of coronary angioplasty implant and graft; Q89.9 Congenital malformation, unspecified
CPT/HCPCS: 70450; 72125; 72128; 72131; 99283

== ENCOUNTER → 2023-04-16 | Outpatient (REF) | payer MEDICARE, OTHER, SELFPAY ==
--- OUTSIDE RECORDS SUMMARY | 2023-04-16 19:23 | XMS RPT_ITS | CCD ---
Author Name Unknown Address [address] [place] [address] Organization [facility] Care Team Providers Care Handcrew Foreman Name Role Phone Ankit Moncada MD Unavailable Gareth Casey Unavailable Unavailable Gareth Casey Unavailable Unavailable Liya Luna Unavailable Unavailable Jonh RN, Nai Cruz Unavailable John RN, Nai Cruz Unavailable Mary Enriquez Unavailable Unavailable Jonh RN, Nai Cruz Unavailable Jonh RN, Nai Cruz Unavailable Liya Luna Unavailable Unavailable Liya Luna Unavailable Unavailable Ankit Moncada MD Unavailable Jonh RN, Nai Cruz Unavailable Andrew AN, Kunal Unavailable Eliceo Drummond MD Primary Care Provider Reji AN MD, Daesung Unavailable Andrew AN, Kunal Unavailable Eliceo Drummond MD Primary Care Provider Reji AN MD, Daesung Unavailable Eliceo Drummond MD Primary Care Provider Andrew AN, Kunal Unavailable Eliceo Drummond MD Primary Care Provider Reji AN MD, Daesung Unavailable ELICEO DRUMMOND Primary Care Unavailable ELICEO DRUMMOND Referring Unavailable MARCOS JUAREZ Referring Unavailable MARCOS JUAREZ Attending Unavailable ELICEO DRUMMOND Primary Care Unavailable ELICEO KHAN JR Referring Unavailable ELICEO KHAN JR Attending Unavailable ELICEO DRUMMOND Primary Care Unavailable ELICEO DRUMMOND Primary Care Unavailable ELICEO DRUMMOND Attending Unavailable ELICEO DRUMMOND Primary Care Unavailable ELICEO DRUMMOND Referring Unavailable ELICEO DRUMMOND Primary Care Unavailable ELICEO DRUMMOND Referring Unavailable SUSIE JEFFREY Attending Unavailable ELICEO KHAN JR Referring Unavailable ELICEO DRUMMOND Primary Care Unavailable ELICEO DRUMMOND Primary Care Unavailable ELICEO DRUMMOND Attending Unavailable ELICEO DRUMMOND Primary Care Unavailable LM, ELICEO Moscoso Referring Unavailable MARCOS JUAREZ Attending Unavailable ELICEO DRUMMOND Primary Care Unavailable ELICEO KHAN JR Attending Unavailable ELICEO DRUMMOND Primary Care Unavailable ELICEO DRUMMOND Attending Unavailable ELICEO DRUMMOND Primary Care Unavailable ELICEO DRUMMOND Primary Care Unavailable ELICEO DRUMMOND Referring Unavailable MARCOS JUAREZ Referring Unavailable MARCOS JUAREZ Attending Unavailable ELICEO DRUMMOND Primary Care Unavailable Allergies Allergy Classification Reported Allergen(s) Allergy Type Date of Onset Reaction(s) Facility (18 sources) atorvastatin drug allergy 08-05-2016 Rash, Itching [facility] Work Phone: (20 sources) codeine; Translations: [CODEINE] drug allergy 04-13-2016 Rash [facility] Work Phone: (20 sources) atorvastatin; Translations: [ATORVASTATIN] Drug Allergy 07-18-2016 Rash, Itching [facility] Medications Current Medications Medication Drug Class(es) Dates Sig (Normalized) Sig (Original) Blood-Glucose Meter monitoring kit (20 sources) Start: 07-20-2022 End: 07-31-2023 Blood-Glucose Meter monitoring kit Indications: Diabetic polyneuropathy associated with type 2 diabetes mellitus (HCC) Glucose Meter of Choice - Kit - Dx: Type 2 DM - Controlled E11.9 1 Each 0 07/20/2022 07/31/2023 Active Completed/Discontinued Medications Medication Drug Class(es) Dates Sig (Normalized) Sig (Original) acetaminophen 325 mg oral tablet (20 sources) Start: 08-05-2016 ACETAMINOPHEN 325 MG TABS As needed [address] [id number] Nai Borja RN Problems Active Problems Problem Classification Problem Date Documented Da te Episodic/Chronic Acute myocardial infarction (20 sources) Myocardial infarction; Translations: [Non-ST elevation (NSTEMI) myocardial infarction] Onset: 0 06-02-2019 Chronic Allergic reactions (1 source) Inflammatory dermatosis; Translations: [Dermatitis, unspecified] Episodic Cancer of bladder (20 sources) Malignant neoplasm, overlapping lesion of bladder; Translations: [Malignant neoplasm of overlapping sites of bladder] Onset: 7 04-25-2016 Chronic Cancer of other male genital organs (20 sources) Malignant tumor of penis; Translations: [Malignant neoplasm of penis, unspecified] Onset: 7 04-25-2016 Chronic Cancer of prostate (20 sources) Malignant tumor of prostate; Translations: [Malignant neoplasm of prostate] Onset: 7 04-25-2016 Chronic Complication of device; implant or graft (20 sources) Arteriosclerosis of coronary artery bypass graft; Translations: [Atherosclerosis of coronary artery bypass graft(s), unspecified, with other forms of angina pectoris] Onset: 0 06-02-2019 Chronic Coronary atherosclerosis and other heart disease (20 sources) Preinfarction syndrome; Translations: [Atherosclerotic heart disease of kashia coronary artery without angina pectoris] Onset: 7 08-05-2016 Chronic Deficiency and other anemia (1 source) Anemia, unspecified; Translations: [Anemia, unspecified type] Onset: 3 Episodic Diabetes mellitus with complications (20 sources) Type 2 diabetes mellitus; Translations: [Type 2 diabetes mellitus with diabetic peripheral angiopathy without gangrene] Onset: 7 07-27-2016 Chronic Diabetes mellitus without complication (20 sources) Diabetes mellitus; Translations: [Type 2 diabetes mellitus with other diabetic kidney complication] Onset: 7 08-05-2016 Chronic Disorders of lipid metabolism (20 sources) Hyperlipidemia; Translations: [Dyslipidemia] Onset: 7 08-05-2016 Chronic E Codes: Fall (1 source) Fall; Translations: [Unspecified fall, subsequent encounter] Episodic Essential hypertension (20 sources) Hypertensive disorder; Translations: [Essential hypertension] Onset: 7 08-05-2016 Chronic Gastritis and duodenitis (20 sources) Chronic superficial gastritis; Translations: [Chronic superficial gastritis without bleeding] Onset: 8 02-24-2018 Chronic Immunizations and screening for infectious disease (4 sources) Patient encounter status; Translations: [Encounter for immunization] Episodic Malaise and fatigue (1 source) Asthenia; Translations: [Weakness] Episodic Mycoses (5 sources) Onychomycosis; Translations: [Tinea unguium] Episodic Other connective tissue disease (5 sources) Pain of toe of left foot; Translations: [Pain in left toe(s)] Episodic Other connective tissue disease (5 sources) Pain of toe of right foot; Translations: [Pain in right toe(s)] Episodic Other gastrointestinal disorders (1 source) Dysphagia; Translations: [Dysphagia, unspecified] Episodic Other hereditary and degenerative nervous system conditions (20 sources) Restless legs; Translations: [Restless legs syndrome] Onset: 2 Chronic Other hereditary and degenerative nervous system conditions (1 source) Restless legs syndrome; Translations: [RLS (restless legs syndrome)] Onset: 2 Chronic Other lower respiratory disease (3 sources) Cough; Translations: [Cough] Episodic Other nervous system disorders (2 sources) Abnormal gait; Translations: [Unspecified abnormalities of gait and mobility] Episodic Other nutritional; endocrine; and metabolic disorders (17 sources) Body mass index (BMI) 30.0-30.9, adult; Translations: [Body mass index (BMI) 30.0-30.9, adult] Onset: 7 08-06-2016 Chronic Other nutritional; endocrine; and metabolic disorders (20 sources) Obese class I; Translations: [Obesity, unspecified] Onset: 7 07-17-2016 Chronic Other skin disorders (1 source) Asteatosis cutis; Translations: [Xerosis cutis] 02-09-2023 Episodic Other upper respiratory disease (1 source) Hoarse; Translations: [Dysphonia] Episodic Parkinson`s disease (20 sources) Parkinson's disease; Translations: [Parkinson's disease] Onset: 1 Chronic Peripheral and visceral atherosclerosis (20 sources) Peripheral arterial occlusive disease; Translations: [Peripheral vascular disease, unspecified] Onset: 7 08-05-2016 Chronic Residual codes; unclassified (20 sources) Obstructive sleep apnea syndrome; Translations: [Obstructive sleep apnea (adult) (pediatric)] Onset: 0 04-30-2020 Chronic Residual codes; unclassified (1 source) Obstructive sleep apnea (adult) (pediatric); Translations: [PIEDAD (obstructive sleep apnea)] Onset: 1 Chronic Unclassified (15 sources) Coronary artery bypass graft; Translations: [Presence of aortocoronary bypass graft] Onset: 7 08-05-2016 Unclassified (15 sources) Percutaneous transluminal coronary angioplasty ; Translations: [Presence of coronary angioplasty implant and graft] Onset: 7 08-05-2016 Unclassified (20 sources) SUMMARY Onset: 7 07-27-2016 Past or Other Problems Problem Classification Problem Date Documented Da te Episodic/Chronic Calculus of urinary tract (20 sources) Urinary bladder stone; Translations: [Calculus in bladder] Onset: 04-19-2019 04-19-2019 Episodic Deficiency and other anemia (20 sources) Anemia; Translations: [Anemia, unspecified] Onset: 09-10-2017 09-10-2017 Episodic Deficiency and other anemia (20 sources) Iron deficiency anemia; Translations: [Iron deficiency anemia, unspecified] Onset: 02-24-2018 02-24-2018 Episodic Deficiency and other anemia (1 source) Iron deficiency anemia, unspecified; Translations: [Iron deficiency anemia, unspecified iron deficiency anemia type] Onset: 02-24-2018 Episodic Genitourinary symptoms and ill-defined conditions (20 sources) Microalbuminuria; Translations: [Proteinuria, unspecified] Onset: 09-11-2016 09-16-2016 Episodic Nonspecific chest pain (18 sources) Atypical chest pain; Translations: [Other chest pain] Onset: 08-05-2016 08-05-2016 Episodic Other and unspecified benign neoplasm (20 sources) History of polyp of colon; Translations: [Personal history of colonic polyps] Onset: 10-08-2016 10-08-2016 Episodic Other circulatory disease (20 sources) History of cerebrovascular accident without residual deficits; Translations: [Personal history of transient ischemic attack (TIA), and cerebral infarction without residual deficits] Onset: 08-23-2020 08-23-2020 Episodic Other gastrointestinal disorders (1 source) Dysphagia, unspecified; Translations: [Dysphagia, unspecified type] Onset: 06-29-2022 Episodic Other nervous system disorders (20 sources) Parkinsonian features; Translations: [Unspecified abnormal involuntary movements] Onset: 08-24-2020 08-24-2020 Episodic Other nervous system disorders (20 sources) Ataxia; Translations: [Ataxia, unspecified] Onset: 12-30-2020 12-30-2020 Episodic Other nervous system disorders (1 source) Ataxia, unspecified; Translations: [Ataxia] Onset: 12-30-2020 Episodic Other nervous system disorders (1 source) Unspecified abnormalities of gait and mobility; Translations: [Abnormality of gait] Onset: 06-29-2022 Episodic Other screening for suspected conditions (not mental disorders or infectious disease) (1 source) Encounter for screening for malignant neoplasm of prostate; Translations: [Screening for prostate cancer] Onset: 07-20-2022 Episodic Spondylosis; intervertebral disc disorders; other back problems (20 sources) Spinal stenosis in cervical region; Translations: [Spinal stenosis, cervical region] Onset: 12-30-2020 12-30-2020 Episodic Results Test Name Value Interpretation Reference Range Facil ity Vital Signs Date Time Vital Sign Value Performing Clinician Facility 01-27-2023 10:45-0400 Body height 177.8 cm Eliceo Drummond MD Work Phone: [facility] 01-27-2023 10:45-0400 Body weight 92.53 kg Eliceo Drummond MD Work Phone: [facility] 01-27-2023 10:45-0400 Diastolic blood pressure 38 mm[Hg] Eliceo Drummond MD Work Phone: [facility] 01-27-2023 10:45-0400 Heart rate 64 /min Eliceo Drummond MD Work Phone: [facility] 01-27-2023 10:45-0400 SaO2% (BldA) [Mass fraction] 98 % Eliceo Drummond MD Work Phone: [facility] 01-27-2023 10:45-0400 Systolic blood pressure 94 mm[Hg] Eliceo Drummond MD Work Phone: [facility] 12-07-2022 13:43-0400 Body weight 92.35 kg Eliceo Khan Jr., MD Work Phone: [facility] 12-07-2022 13:43-0400 Diastolic blood pressure 76 mm[Hg] Eliceo Khan Jr., MD Work Phone: [facility] 12-07-2022 13:43-0400 Heart rate 67 /min Eliceo Khan Jr., MD Work Phone: [facility] 12-07-2022 13:43-0400 Respiratory rate 16 /min Eliceo Khan Jr., MD Work Phone: [facility] 12-07-2022 13:43-0400 SaO2% (BldA) [Mass fraction] 98 % Eliceo Khan Jr., MD Work Phone: [facility] 12-07-2022 13:43-0400 Systolic blood pressure 144 mm[Hg] Eliceo Khan Jr., MD Work Phone: [facility] 10-09-2022 16:32-0400 Diastolic blood pressure 60 mm[Hg] Eliceo Drummond MD Work Phone: [facility] 10-09-2022 16:32-0400 Systolic blood pressure 128 mm[Hg] Eliceo Drummond MD Work Phone: [facility] 10-09-2022 16:06-0400 Body weight 90.72 kg Eliceo Drummond MD Work Phone: [facility] 10-09-2022 16:06-0400 Heart rate 59 /min Eliceo Drummond MD Work Phone: [facility] 10-09-2022 16:06-0400 SaO2% (BldA) [Mass fraction] 95 % Eliceo Drummond MD Work Phone: [facility] 07-20-2022 10:24-0400 Diastolic blood pressure 60 mm[Hg] Eliceo Drummond MD Work Phone: [facility] 07-20-2022 10:24-0400 Systolic blood pressure 136 mm[Hg] Eliceo Drummond MD Work Phone: [facility] 07-20-2022 09:48-0400 Body height 177.8 cm Eliceo Drummond MD Work Phone: [facility] 07-20-2022 09:48-0400 Body weight 94.89 kg Eliceo Drummond MD Work Phone: [facility] 07-20-2022 09:48-0400 Heart rate 50 /min Eliceo Drummond MD Work Phone: [facility] 07-20-2022 09:48-0400 SaO2% (BldA) [Mass fraction] 98 % Eliceo Drummond MD Work Phone: [facility] 06-29-2022 16:25-0400 Body temperature 97.2 [degF] Eliceo Khan Jr., MD Work Phone: [facility] 06-29-2022 16:25-0400 Body weight 92.35 kg Eliceo Khan Jr., MD Work Phone: [facility] 06-29-2022 16:25-0400 Diastolic blood pressure 77 mm[Hg] Eliceo Khan Jr., MD Work Phone: [facility] 06-29-2022 16:25-0400 Heart rate 68 /min Eliceo Khan Jr., MD Work Phone: [facility] 06-29-2022 16:25-0400 Respiratory rate 16 /min Eliceo Khan Jr., MD Work Phone: [facility] 06-29-2022 16:25-0400 SaO2% (BldA) [Mass fraction] 95 % Eliceo Khan Jr., MD Work Phone: [facility] 06-29-2022 16:25-0400 Systolic blood pressure 157 mm[Hg] Eliceo Khan Jr., MD Work Phone: [facility] 01-13-2022 13:12-0400 Body height 177.8 cm Eliceo Drummond MD Work Phone: [facility] 01-13-2022 13:12-0400 Body weight 94.8 kg Eliceo Drummond MD Work Phone: [facility] 01-13-2022 13:12-0400 Diastolic blood pressure 56 mm[Hg] Eliceo Drummond MD Work Phone: [facility] 01-13-2022 13:12-0400 Heart rate 56 /min Eliceo Drummond MD Work Phone: [facility] 01-13-2022 13:12-0400 SaO2% (BldA) [Mass fraction] 98 % Eliceo Drummond MD Work Phone: [facility] 01-13-2022 13:12-0400 Systolic blood pressure 130 mm[Hg] Eliceo Drummond MD Work Phone: [facility] 09-08-2021 14:07-0400 Body temperature 97.39 [degF] Eliceo Khan Jr., MD Work Phone: [facility] 09-08-2021 14:07-0400 Body weight 94.35 kg Eliceo Khan Jr., MD Work Phone: [facility] 09-08-2021 14:07-0400 Diastolic blood pressure 68 mm[Hg] Eliceo Khan Jr., MD Work Phone: [facility] 09-08-2021 14:07-0400 Heart rate 58 /min Eliceo Khan Jr., MD Work Phone: [facility] 09-08-2021 14:07-0400 Respiratory rate 18 /min Eliceo Khan Jr., MD Work Phone: [facility] 09-08-2021 14:07-0400 SaO2% (BldA) [Mass fraction] 96 % Eliceo Khan Jr., MD Work Phone: [facility] 09-08-2021 14:07-0400 Systolic blood pressure 128 mm[Hg] Eliceo Khan Jr., MD Work Phone: [facility] 07-09-2021 14:09-0400 Body weight 97.52 kg Eliceo Drummond MD Work Phone: [facility] 07-09-2021 14:09-0400 Diastolic blood pressure 58 mm[Hg] Eliceo Drummond MD Work Phone: [facility] 07-09-2021 14:09-0400 Heart rate 50 /min Eliceo Drummond MD Work Phone: [facility] 07-09-2021 14:09-0400 SaO2% (BldA) [Mass fraction] 96 % Eliceo Drummond MD Work Phone: [facility] 07-09-2021 14:09-0400 Systolic blood pressure 112 mm[Hg] Eliceo Drummond MD Work Phone: [facility] 11-05-2016 09:56-0400 BMI (Body Mass Index) 31.42 kg/m2 [facility] Work Phone: 11-05-2016 09:56-0400 BP Diastolic 62 mm[Hg] Gareth Casey [facility] Work Phone: 11-05-2016 09:56-0400 BP Systolic 122 mm[Hg] Gareth Casey [facility] Work Phone: 11-05-2016 09:56-0400 Height 177.8 cm [facility] Work Phone: 11-05-2016 09:56-0400 Pulse (Heart Rate) 60 /min [facility] Work Phone: 11-05-2016 09:56-0400 Respiratory Rate 16 /min [facility] Work Phone: 11-05-2016 09:56-0400 Weight 99.34 kg [facility] Work Phone: 08-06-2016 15:51-0400 Heart rate 64 /min Ankit Moncada MD [facility] Work Phone: 08-06-2016 15:24-0400 BMI (Body Mass Index) 30.56 kg/m2 Ankit Moncada MD [facility] Work Phone: 08-06-2016 15:24-0400 Body Temperature 97.6 [degF] Ankit Moncada MD [facility] Work Phone: 08-06-2016 15:24-0400 Body weight 96.62 kg Nai Borja RN [facility] Work Phone: 08-06-2016 15:24-0400 BP Diastolic 62 mm[Hg] Ankit Moncada MD [facility] Work Phone: 08-06-2016 15:24-0400 BP Systolic 110 mm[Hg] Ankit Moncada MD [facility] Work Phone: 08-06-2016 15:24-0400 Height 177.8 cm Ankit Moncada MD [facility] Work Phone: 08-06-2016 15:24-0400 Pulse (Heart Rate) 68 /min Ankit Moncada MD [facility] Work Phone: 08-06-2016 15:24-0400 Respiratory Rate 16 /min Ankit Moncada MD [facility] Work Phone: 08-06-2016 15:24-0400 Weight 96.62 kg Ankit Moncada MD [facility] Work Phone: Encounters Encounter Date Encounter Type Care Provider Facility Start: 03-02-2023 Refill Eliceo Drummond MD Work Phone: [facility] Procedures Date Procedure Procedure Detail Performing Clinician Start: 01-13-2022 INFLUENZA SEASONAL QUADRIVALENT HIGH DOSE AGE 65+ Eliceo Drummond MD Work Phone: Start: 01-13-2022 [email or web address] COVID-19 BIVALENT BOOSTER VACCINE, AGE 12+ YR Eliceo Drummond MD Work Phone: Start: 02-05-2017 End: 02-05-2017 *Hepatic Function Panel Ankit Moncada MD Start: 02-05-2017 End: 02-05-2017 Lipid 1996 panel - Serum or Plasma Ankit Moncada MD Start: 11-05-2016 End: 11-27-2016 *BMP Ankit Moncada MD Start: 11-05-2016 End: 11-05-2016 Follow Up Appt 6 months Ankit Moncada MD Start: 11-05-2016 End: 11-27-2016 Magnesium [Mass/volume] in Serum or Plasma Ankit Moncada MD Start: 11-05-2016 End: 11-05-2016 PFM Ankit Moncada MD Start: 11-05-2016 End: 11-27-2016 *BMP Ankit Moncada MD Start: 11-05-2016 End: 11-05-2016 Follow Up Appt 6 months Ankit Moncada MD Start: 11-05-2016 End: 11-27-2016 Magnesium Ankit Moncada MD Start: 11-05-2016 End: 11-05-2016 PFM Ankit Moncada MD Start: 08-06-2016 End: 08-06-2016 Dietary management education, guidance, and counseling Ankit Moncada MD Start: 08-06-2016 End: 08-06-2016 Documentation of current medications Nai Borja RN Start: 08-06-2016 End: 08-11-2016 *Hepatic Function Panel Ankit Moncada MD Start: 08-06-2016 End: 08-25-2016 Cardiovascular stress test using treadmill Ankit Moncada MD Start: 08-06-2016 End: 08-07-2016 Chest x-ray Ankit Moncada MD Start: 08-06-2016 End: 08-06-2016 Follow Up Appt 3 months Ankit Moncada MD Start: 08-06-2016 End: 08-11-2016 Lipid 1996 panel - Serum or Plasma Ankit Moncada MD Start: 08-06-2016 End: 08-06-2016 PFM Ankit Moncada MD Start: 08-06-2016 End: 08-07-2016 Referral to photocopying equipment repairer Ankit grey MD Start: 08-06-2016 End: 08-11-2016 *Hepatic Function Panel Ankit Moncada MD Start: 08-06-2016 End: 08-25-2016 Cardiovascular stress test using treadmill Ankit Moncada MD Start: 08-06-2016 End: 08-07-2016 Chest x-ray Ankit Moncada MD Start: 08-06-2016 End: 08-06-2016 Follow Up Appt 3 months Ankit Moncada MD Start: 08-06-2016 End: 08-11-2016 Lipid panel [AGGREGATE] Ankit Moncada MD Start: 08-06-2016 End: 08-06-2016 PFM Ankit Moncada MD Start: 08-06-2016 End: 10-12-2016 Referral to photocopying equipment repairer Ankit grey MD Start: 08-05-2016 Coronary artery bypass graft S/P coronary artery bypass grafting Ankit Moncada MD Start: 08-05-2016 Percutaneous transluminal coronary angioplasty Status post PTCA and/or stent Ankit Moncada MD Plan of Treatment Date Care Activity Detail Author Start: 01-28-2024 Covid-19 Vaccine () Covid-19 Vaccine () [facility] Immunizations Immunization Date Immunization Notes Care Provider Fa cili 02-09-2023 COVID-19 vaccine, ag e 12+ yr, season (Exclusively.in) Eliceo Drummond MD Work Phone: [facility] 01-14-2023 influenza, high dose seasonal, preservative-free Eliceo Drummond MD Work Phone: [facility] 01-13-2022 COVID-19 booster vaccine, age 12+ yr, bivalent ([email or web address]) Eliceo Drummond MD Work Phone: [facility] 01-13-2022 influenza, high-dose , quadrivalent vaccine (FLUZONE HIGH DOSE QUADRIVALENT) Eliceo Drummond MD Work Phone: [facility] 01-13-2022 influenza virus vacc ine, unspecified formulation Eliceo Khan Jr., MD Work Phone: [facility] 08-26-2021 COVID-19 original vaccine, full dose, monovalent (MODERNA) Eliceo Drummond MD Work Phone: [facility] 02-10-2021 COVID-19 original vaccine, full dose, monovalent (MODERNA) Eliceo Drummond MD Work Phone: [facility] 01-23-2021 influenza, high dose seasonal, preservative-free Eliceo Khan Jr., MD Work Phone: [facility] 06-05-2020 COVID-19 vaccine, fu ll dose (MODERNA) Eliceo Khan Jr., MD Work Phone: [facility] 05-09-2020 COVID-19 vaccine, fu ll dose (MODERNA) Eliceo Khan Jr., MD Work Phone: [facility] 12-30-2019 influenza, high-dose , quadrivalent vaccine (FLUZONE HIGH DOSE QUADRIVALENT) Eliceo Khan Jr., MD Work Phone: [facility] Work Phone: 12-27-2018 influenza, seasonal, injectable, preservative free Eliceo Khan Jr., MD Work Phone: [facility] 12-03-2017 influenza, high dose seasonal, preservative-free Eliceo Khan Jr., MD Work Phone: [facility] 12-10-2016 influenza, high dose seasonal, preservative-free Eliceo Khan Jr., MD Work Phone: [facility] 01-22-2016 influenza, seasonal, injectable, preservative free Eliceo Khan Jr., MD Work Phone: [facility] 01-22-2016 pneumococcal conjuga te vaccine, 13 valent Eliceo Khan Jr., MD Work Phone: [facility] 12-10-2015 influenza, high dose seasonal, preservative-free Eliceo Khan Jr., MD Work Phone: [facility] Work Phone: 01-27-2015 influenza, high dose seasonal, preservative-free Eliceo Khan Jr., MD Work Phone: [facility] Work Phone: 01-27-2015 pneumococcal polysaccharide vaccine, 23 valent Eliceo Khan Jr., MD Work Phone: [facility] Work Phone: 12-27-2013 influenza, high dose seasonal, preservative-free Eliceo Khan Jr., MD Work Phone: [facility] Work Phone: 12-13-2012 influenza, high dose seasonal, preservative-free Eliceo Khan Jr., MD Work Phone: [facility] Work Phone: 05-06-2009 pneumococcal polysaccharide vaccine, 23 valent Eliceo Khan Jr., MD Work Phone: [facility] Work Phone: 12-23-1998 tetanus and diphther ia toxoids, not adsorbed, for adult use Eliceo Khan Jr., MD Work Phone: [facility] Work Phone: Payers Date Payer Category Payer Medicare [id number] 2008 Unknown [employer] [place] MEDIC[employer] SUPPLEMENT [id number] 2008-Present [phone] [id number] [employer] [place] [address] Indemnity [id number] 2008 Unknown [employer] [place] [employer] [place] MEDIC[employer] SUPPLEMENT [id number] 2008-Present [phone] [id number] [employer] [place], [place] [id number] Indemnity [id number] 2005 Medicare MEDICARE MEDICAR E A AND B [id number] 2005-Present [phone] [place] [address] Medicare [id number] 2005 Medicare MEDICARE MEDICAR E A AND B [id number] 2005-Present [phone] [place] [address] Medicare [id number] 2005 Medicare [id number] Social History Date Type Detail Facility Start: 04-13-2016 End: 03-09-2022 Tobacco smoking status NHIS Ex-smoker [facility] End: 04-13-2004 History of tobacco use Current smoker [facility] End: 04-13-2004 History of tobacco use Cigarette Smoker [facility] Start: 04-13-2016 End: 08-13-2022 Cigarettes smoked current (pack per day) - Reported 0.5 [facility] Start: 04-13-2016 End: 03-09-2022 Tobacco use and exposure Smokeless tobacco non-user [facility] Start: 06-06-2021 End: 02-09-2023 Alcohol intake Current drinker of alcohol (finding) [facility] Start: 02-26-2020 End: 09-13-2020 History SDOH Alcohol Frequency 3 [facility] Start: 01-11-2020 End: 02-26-2020 History SDOH Alcohol Std Drinks 1 [facility] Start: 04-13-2016 History SDOH Alcohol Comment occs [facility] Start: 01-11-2020 History SDOH Social Connections Phone 4 [facility] Start: 05-09-2019 History SDOH Physica l Activity DPW 0 [facility] Start: 10-26-2019 History SDOH Transpo rt Non-Med 2 [facility] Start: 05-09-2019 Education 17 [facility] Start: 1940 Sex Assigned At Male C [facility] Start: 05-31-2021 End: 01-13-2022 Exposure to SARS-CoV-2 (event) Not sure [facility] Start: 01-11-2020 End: 08-13-2022 Social connection and isolation panel [facility] Do you belong to any clubs or organizations such as jehovah's witness groups, unions, fraternal or athletic groups, or school groups? Yes [facility] Attends Club or Organization Meetings Not on file [facility] Work Phone: How often to you hav e a drink containing alcohol? 2-4 times a month [facility] How many standard dr inks containing alcohol do you have on a typical day? 1 or 2 [facility] How often do you hav e 6 or more drinks on 1 occasion? Never [facility] How hard is it for y ou to pay for the very basics like food, housing, medical care, and heating Not very hard [facility] Do you feel stress - tense, restless, nervous, or anxious, or unable to sleep at night because your mind is troubled all the time - these days [OSQ] To some extent [facility] (I/We) worried wheth er (my/our) food would run out before (I/we) got money to buy more. Never true [facility] Start: 07-18-2018 Gender identity Identifies as male gender (finding) [facility] Medical Equipment Procedure Code Equipment Code Equipment Original Text Equipment Identifier Dates [place] Thk1.65mm P tfe 4x.5in Cardiovascular Sterile - [id number] Start: 07-21-2016 Start: 05-12-2021 End: 07-20-2022 Clinical Notes 07-23-2016 to 03-02-2023 Telephone Encounter - Viki Kimble RN - 03/02/2023 3:30 PM ESTTelephone Encounter - Sridevi Katz - 02/16/2023 2:23 PM ESTTelephone Encounter - Eliceo Drummond MD - 02/16/2023 2:17 PM EST Note Date & Type Note Facility 03-02-2023 Miscellaneous Notes Patient has been identified by name and date of : Yes, Provider Dr. Drummond Date 03/02/23 Time 1530 Pharmacy phones for refill(s): Requested Prescriptions Pending Prescriptions Disp Refills metFORMIN (GLUCOPHAGE) 1,000 mg tablet 180 tablet 3 Sig: Take 1 tablet by mouth two times a day with meals. pravastatin (PRAVACHOL) 40 mg tablet 90 tablet 3 Sig: Take 1 tablet by mouth once daily. Date of last office visit in primary care: 01/27/2023 Date of next office visit in primary care: 08/02/2023 Last 2 Encounter Wt Readings: Date: Wt: 01/27/2023 92.5 kg (204 lb) 12/07/2022 92.4 kg (203 lb 9.6 oz) Previous labs/tests for medication: Diabetes: Hemoglobin A1C (%) Date Value 01/27/2023 6.0 07/20/2022 6.5 01/24/2021 6.7 01/11/2020 7.2 Cholesterol: Triglycerides (mg/dL) Date Value 08/06/2017 83 HDL Cholesterol (mg/dL) Date Value 01/24/2021 47 HDL Cholesterol, Nonfasting (mg/dL) Date Value 01/27/2023 63 LDL Cholesterol (mg/dL) Date Value 01/24/2021 86 LDL Cholesterol, Nonfasting (mg/dL) Date Value 01/27/2023 60 ALT (U/L) Date Value 01/27/2023 9 01/24/2021 12 Non HDL Cholesterol, Nonfasting (mg/dL) Date Value 01/27/2023 76 Non HDL Cholesterol (mg/dL) Date Value 01/24/2021 116 Please advise. Thank you. Viki Kimble RN. documented in this encounter [facility] 02-16-2023 Miscellaneous Notes Placed call to patients son Nash with no answer. VM verified. Left message advising him letters were placed in mail. Advised him to call back with any questions or concerns. Sridevi Katz Printed. Note also sent in spouses chart. Son, Nash Chau, reports both patient and spouse, live [facility]. Son needs letter from pcp, for tax accountants, to file their taxes this year. Letter needs to state what their medical conditions are to show IRS need for assisted living is deductible. Please advise son if pcp is able to write this letter, and if so, please mail letter to son @ Nash Chau [address] [place] [address] documented in this encounter [facility] 02-16-2023 Miscellaneous Notes Pts daughter Elodia called and is notified of providers message and instructions. She voices understanding. Clair Jay RN Do the ifobt as ordered to make sure not bleeding. We can follow it twice a year. If no significant drop, will not pursue further work up Pts daughter Elodia called and is notified of providers results and instructions. She voices understanding and will leaf size picker stool kit. She states her dad doesn't want to see any more doctors, she was asking how Dr Drummond would like to proceed. Clair Jay RN Anemia is stable. Do the ifobt we ordered last time. Before he had declined further work up. If worsens or changes his mind, could see a blood dr etc. If not, we can just follow to make sure remains stable. documented in this encounter [facility] 02-09-2023 Note HNO ID: [id number] Author: Marcos Juarez Service: ? Author Type: Physician Type: Progress Notes Filed: 02/09/2023 11:34 AM Note Text: Last saw pcp: 01/27/23 Subjective: Patient presents to clinic c/o painful toenails. They state that the nails are especially painful with shoe gear and pressure. Patient states that nails 1-5 b/l are painful. Patient admits to being diabetic. No other pedal complaints at this time. Patient states no change in medications or medical history since last visit. Objective: Patient presents to clinic ambulating in sneaker Vasc: DP and PT pulses are palpable bilateral. CFT is less than 5 seconds bilateral. Skin temperature is warm to cool proximal to distal bilateral. There is no edema or varicosities noted. Neuro: Protective sensation is intact to the foot and toes when tested with the 5.07 SWM bilateral. Vibratory sensation is absent at the hallux IPJ bilateral. The hallux is downgoing bilateral. Derm: Nails 1-5 b/l are painful, discolored-yellow, thick, crumbly, dystrophic and with subungal debris. Skin is dry and hair growth is decreased bilateral. There are no hyperkeratosis, ulcerations, scars, verruca or other lesions noted. Ortho: Muscle strength is 5/5 for all pedal groups tested. Ankle joint DF is decresaed with the knee extended with no pain or crepitus noted. 1st MPJ ROM is decreased bilateral. Assessment: (B35.1) Onychomycosis (primary encounter diagnosis) (M79.675) Pain in toe of left foot (M79.674) Pain in toe of right foot (E11.9, Z79.4) Controlled type 2 diabetes mellitus without complication, with long-term current use of insulin ([facility]) (L85.3) Xerosis cutis Plan: Patient was seen and evaluated. Nails 1-5 bilateral were debrided in length and thickness. Patient was instructed on the continued importance of diabetic foot care along with proper diet and keeping their blood sugar under control to prevent complications. Recommend good shoes and avoiding barefoot walking Discussed dryness in b/l feet. Would recommend use of lotion, ie amlactin or over the counter option daily. Patient is to RTC in 3-4 months. Marcos Juarez DPM [facility] 02-09-2023 Note HNO ID: [id number] Author: Clair Santoyo RN Service: ? Author Type: Registered Nurse Type: Progress Notes Filed: 02/09/2023 11:34 AM Note Text: Patient presents with: Left Foot - Established Patient, Follow Up, Diabetic Foot Care Right Foot - Established Patient, Follow Up, Diabetic Foot Care Patient presents with friend from [facility] for 3 month diabetic foot care. Denies any pain or problems to his feet. [facility] 02-09-2023 History of Presen t illness Narrative Last saw pcp: 01/27/23 Subjective: Patient presents to clinic c/o painful toenails. They state that the nails are especially painful with shoe gear and pressure. Patient states that nails 1-5 b/l are painful. Patient admits to being diabetic. No other pedal complaints at this time. Patient states no change in medications or medical history since last visit. Objective: Patient presents to clinic ambulating in sneakers Vasc: DP and PT pulses are palpable bilateral. CFT is less than 5 seconds bilateral. Skin temperature is warm to cool proximal to distal bilateral. There is no edema or varicosities noted. Neuro: Protective sensation is intact to the foot and toes when tested with the 5.07 SWM bilateral. Vibratory sensation is absent at the hallux IPJ bilateral. The hallux is downgoing bilateral. Derm: Nails 1-5 b/l are painful, discolored-yellow, thick, crumbly, dystrophic and with subungal debris. Skin is dry and hair growth is decreased bilateral. There are no hyperkeratosis, ulcerations, scars, verruca or other lesions noted. Ortho: Muscle strength is 5/5 for all pedal groups tested. Ankle joint DF is decresaed with the knee extended with no pain or crepitus noted. 1st MPJ ROM is decreased bilateral. Assessment: (B35.1) Onychomycosis (primary encounter diagnosis) (M79.675) Pain in toe of left foot (M79.674) Pain in toe of right foot (E11.9, Z79.4) Controlled type 2 diabetes mellitus without complication, with long-term current use of insulin ([facility]) (L85.3) Xerosis cutis Plan: Patient was seen and evaluated. Nails 1-5 bilateral were debrided in length and thickness. Patient was instructed on the continued importance of diabetic foot care along with proper diet and keeping their blood sugar under control to prevent complications. Recommend good shoes and avoiding barefoot walking Discussed dryness in b/l feet. Would recommend use of lotion, ie amlactin or over the counter option daily. Patient is to RTC in 3-4 months. Marcos uJarez DPM Patient presents with: Left Foot - Established Patient, Follow Up, Diabetic Foot Care Right Foot - Established Patient, Follow Up, Diabetic Foot Care Patient presents with friend from [place] [employer] [facility] for 3 month diabetic foot care. Denies any pain or problems to his feet. documented in this encounter [facility] 02-09-2023 Instructions Marcos Juarez - 02/09/2023 11:20 AM EST Diabetes Foot Care Instructions When you have diabetes, proper foot care is very important. Poor foot care may lead to amputation of a foot or leg. As a person with diabetes, you are more vulnerable to foot problems, because diabetes can damage your nerves and reduce blood flow to your feet. Here are some diabetes foot care tips to follow: Wash and Dry Your Feet Daily Use mild soaps Use warm water Pat your skin dry; do not rub. Thoroughly dry your feet. After washing, use lotion on your feet to prevent cracking. Do not put lotion between your toes. Examine Your Feet Each Day Check the tops and bottoms of your feet. Have someone else look at your feet if you cannot see them. Check for dry, cracked skin. Look for blisters, cuts, scratches, or other sores. Check for redness, increased warmth, or tenderness when touching any area of your feet. Check for ingrown toenails, corns, and calluses. If you get a blister or sore from your shoes, do not pop it. Apply a bandage and wear a different pair of shoes. Take Care of Your Toenails Cut toenails after bathing, when they are soft. Cut toenails straight across and smooth with a nail file. Avoid cutting into the corners of toes. Do not cut cuticles. If you have neuropathy (or decreased sensation in your feet) a storage engineer should always cut your toenails. Be Careful When Exercising Walk and exercise in comfortable shoes. Do not exercise when you have open sores on your feet. Protect Your Feet With Shoes and Socks Never go barefoot. Always protect your feet by wearing shoes or hard-soled slippers or footwear. Avoid shoes with high heels and pointed toes. Avoid shoes that expose your toes or heels (such as open-toed shoes or sandals). These types of shoes increase your risk for injury and potential infections. Try on new footwear with the type of socks you usually wear. Do not wear new shoes for more than an hour at a time. Change your socks daily. Look and feel inside your shoes before putting them on to make sure there are no foreign objects or rough areas. Avoid tight socks. Wear natural-fiber socks (cotton, wool, or a cotton-wool blend). Wear special shoes if your health care provider recommends them. Wear shoes/boots that will protect your feet from various weather conditions (cold, moisture, etc.). Make sure your shoes fit properly. If you have neuropathy (nerve damage), you may not notice that your shoes are too tight. Perform the footwear test described below. Footwear Test Use this simple test to see if your shoes fit correctly: Stand on a piece of paper. (Make sure you are standing and not sitting, because your foot changes shape when you stand.) Trace the outline of your foot. Trace the outline of your shoe. Compare the tracings: Is the shoe too narrow? Is your foot crammed into the shoe? The shoe should be at least 1/2 inch longer than your longest toe and as wide as your foot. Proper Shoe Choices The following types of shoes are best for people with diabetes Closed toes and heels Leather uppers without a seam inside At least 1/2 inch extra space at the end of your longest toe Inside of shoe should be soft with no rough areas Outer sole should be made of stiff material Shoes should be at least as wide as your feet Tips for Foot Care in Diabetes Don't wait to treat a minor foot problem if you have diabetes. Follow your health care provider's guidelines and first aid guidelines. Report foot injuries and infections to your health care provider immediately. Check water temperature with your elbow, not your foot. Do not use a heating pad on your feet. Do not cross your legs. Do not self-treat your corns, calluses, or other foot problems. Go to your health care provider or storage engineer to treat these conditions. documented in this encounter [facility] 02-01-2023 Miscellaneous Notes Form faxed. Fahad Turner Noted. Should updated cardiology on symptoms yesterday. To ER with any sustained symptoms. Lindsay Feliz APRN.JULIO CESAR Type of form: patient update from [place] Form received via fax When form is completed, Fax form to [phone] Form has been forwarded to Nurse Practitioner: JULIO CESAR Marie documented in this encounter [facility] 01-28-2023 Miscellaneous Notes noted Phoned patient and spoke with his daughter, Elodia. She voiced understanding and reports she doesn't think patient is having symptoms but will call [facility] and speak with his nurse to verify. She stated she will call back in if he is symptomatic. Labs are stable. Except anemia is slightly worse. Recheck labs in two weeks. His urine is showing bacteria but no white cells. Any uti symptoms? documented in this encounter [facility] 01-27-2023 Note HNO ID: [id number] Author: Eliceo Drummond MD Service: ? Author Type: Physician Type: Progress Notes Filed: 01/27/2023 11:37 AM Note Text: Patient presents with: Follow Up HPI: Patient presents today for office visit for follow up. Here with daughter today. Ambulating with rollator. Currently resided in [facility] living. Medication list reconciled. Recently saw Dr. Khan on 12/07/22 with Neurology. Hx of Parkinson's. RLS currently not bothering patient. Currently using CPAP again. Piece that was broken has been fixed. Sleeping well but not through the night. Wakes up to urinate frequently. Complaining of terrible headaches all the time. Using tylenol for headaches which seems to help. Refers to headaches starting in back of head/upper neck and refers to it feeling achy. BP has been stable Denies chest pain and shortness of breath Denies dizziness Denies edema Denies syncopal episodes Sees podiatry Facility tests sugars about once a week. Brought list. Overall ok. Has had a few falls but no injuries. Does use his walker. Follows with [facility]. He no longer sees urology. He decided not to pursue follow up. Have been following his anemia. Which is stable. Meds are being administered. His is noting ? Blood in depends with his urine. See hpi from six month ago: HTN: Does not monitor BP at home Consistent with taking medications daily. Ran out of Furosemide about 6 months ago and never got a refill. He just stopped taking it. No issues. No hx of chf . Red flags for re-assessment reviewed with patient in detail. No chest pain No shortness of breath No edema No headaches No dizziness No syncope No palpitations Followed by Cardiology. No issues. Follows with Dr. Khan, neuro. Last OV 06/29/22. Taking Sinemet for Parkinson's. A couple falls since last visit. Ambulates with walker. DM: Needs refill on testing supplies Has not checked sugars in about 3 months Some vision changes. Laser procedure done with Dr. Singleton for some cloudiness. Denies foot lesions, numbness and pain. Followed by Dr. Juarez No unexpected weight loss Does not watch diet very closely GERD: Symptoms controlled Family says not to stop zoloft. Doing well. MEDICATIONS: Current Outpatient Medications Medication Sig loratadine 10 mg cap Take 10 mg by mouth once daily. ferrous sulfate 325 mg (65 mg iron) tablet Take 325 mg by mouth. carbidopa-levodopa (SINEMET 25-100) 25-100 mg per tablet TAKE 2 TABLET 3 TIMES A DAY(TAKE AT BREAKFAST, LUNCH, AND DINNER) carbidopa-levodopa CR (SINEMET CR) 50-200 mg per tablet Take 1 tablet 1 hour before bedtime. gabapentin (NEURONTIN) 300 mg capsule TAKE 1 CAPSULE AT DINNER AND 2 CAPSULE 30-60 minutes before BEDTIME omeprazole (PRILOSEC) 20 mg capsule Take 1 capsule by mouth daily before breakfast. 1/2 hr before meal. sertraline (ZOLOFT) 50 mg tablet Take 1 tablet by mouth once daily. losartan (COZAAR) 50 mg tablet Take 1 tablet by mouth once daily. amitriptyline (ELAVIL) 10 mg tablet Take 1 tablet by mouth daily at bedtime. ipratropium bromide (ATROVENT) 42 mcg (0.06 %) nasal spray Use 2 Sprays in the nose twice daily. Blood-Glucose Meter monitoring kit Glucose Meter of Choice - Kit - Dx: Type 2 DM - Controlled E11.9 blood sugar diagnostic (BLOOD GLUCOSE TEST) test strip Test blood sugar(s) 1 times daily. Dx: Type 2 DM - Controlled E11.9 Insulin: No Lancets lancets Test blood sugar(s) 1 times daily. Dx: Type 2 DM - Controlled E11.9 Insulin: No metoprolol succinate ER (TOPROL XL) 25 mg 24 hr tablet Take 1 tablet by mouth once daily. pravastatin (PRAVACHOL) 40 mg tablet Take 1 tablet by mouth once daily. metFORMIN (GLUCOPHAGE) 1,000 mg tablet Take 1 tablet by mouth twice daily with meals. CPAP Heating tubing CPAP Please provide download. Please evaluate PAP device for faulty humidifier. CPAP Initiate Auto PAP @ 5-20 cm of water with humidification. Mask (per patient preference) optional chin strap (if indicated) , filters, tubing, humidifier and lifetime supplies. aspirin 81 mg chewable tablet Take 2 tablets by mouth once daily. No current facility-administered medications for this visit. ALLERGIES: ALLERGIES Allergen Reactions Lipitor [Atorvastat* Rash, Itching Codeine Rash PAST MEDICAL HISTORY Diagnosis Date Bladder cancer ([facility]) 2010 CAD S/P percutaneous coronary angioplasty 06/1999 x 5 stents, atherectomy 2013, PCI to LAD 1999 and RCA 2000 DM (diabetes mellitus) ([facility]) type 2 HTN (hypertension) Hyperlipidemia PAD (peripheral artery disease) ([facility]) 2014 s/p stent right SFA Penile cancer ([facility]) 04/08/2010 Prostate cancer ([facility]) 2006 s/p radical robotic prostatectomy [place] PAST SURGICAL HISTORY Procedure Laterality Date BIOPSY PENIS SEPARATE PROCEDURE 2010 CABG (3) VEIN GRAFTS AND ARTERIAL GRAFT(S) 06/2016 COLONOSCOPY FLX DX W/COLLJ SPEC WHEN PFRMD 10/28/19 (more content not included)... [facility] 01-27-2023 History of Presen t illness Narrative Patient presents with: Follow Up HPI: Patient presents today for office visit for follow up. Here with daughter today. Ambulating with rollator. Currently resided in [facility] assisted living. Medication list reconciled. Recently saw Dr. Khan on 12/07/22 with Neurology. Hx of Parkinson's. RLS currently not bothering patient. Currently using CPAP again. Piece that was broken has been fixed. Sleeping well but not through the night. Wakes up to urinate frequently. Complaining of terrible headaches all the time. Using tylenol for headaches which seems to help. Refers to headaches starting in back of head/upper neck and refers to it feeling achy. BP has been stable Denies chest pain and shortness of breath Denies dizziness Denies edema Denies syncopal episodes Sees podiatry Facility tests sugars about once a week. Brought list. Overall ok. Has had a few falls but no injuries. Does use his walker. Follows with [facility]. He no longer sees urology. He decided not to pursue follow up. Have been following his anemia. Which is stable. Meds are being administered. His is noting ? Blood in depends with his urine. See hpi from six month ago: HTN: Does not monitor BP at home Consistent with taking medications daily. Ran out of Furosemide about 6 months ago and never got a refill. He just stopped taking it. No issues. No hx of chf . Red flags for re-assessment reviewed with patient in detail. No chest pain No shortness of breath No edema No headaches No dizziness No syncope No palpitations Followed by Cardiology. No issues. Follows with Dr. Khan, neuro. Last OV 06/29/22. Taking Sinemet for Parkinson's. A couple falls since last visit. Ambulates with walker. DM: Needs refill on testing supplies Has not checked sugars in about 3 months Some vision changes. Laser procedure done with Dr. Singleton for some cloudiness. Denies foot lesions, numbness and pain. Followed by Dr. Juarez No unexpected weight loss Does not watch diet very closely GERD: Symptoms controlled Family says not to stop zoloft. Doing well. MEDICATIONS: Current Outpatient Medications Medication Sig loratadine 10 mg cap Take 10 mg by mouth once daily. ferrous sulfate 325 mg (65 mg iron) tablet Take 325 mg by mouth. carbidopa-levodopa (SINEMET 25-100) 25-100 mg per tablet TAKE 2 TABLET 3 TIMES A DAY(TAKE AT BREAKFAST, LUNCH, AND DINNER) carbidopa-levodopa CR (SINEMET CR) 50-200 mg per tablet Take 1 tablet 1 hour before bedtime. gabapentin (NEURONTIN) 300 mg capsule TAKE 1 CAPSULE AT DINNER AND 2 CAPSULE 30-60 minutes before BEDTIME omeprazole (PRILOSEC) 20 mg capsule Take 1 capsule by mouth daily before breakfast. 1/2 hr before meal. sertraline (ZOLOFT) 50 mg tablet Take 1 tablet by mouth once daily. losartan (COZAAR) 50 mg tablet Take 1 tablet by mouth once daily. amitriptyline (ELAVIL) 10 mg tablet Take 1 tablet by mouth daily at bedtime. ipratropium bromide (ATROVENT) 42 mcg (0.06 %) nasal spray Use 2 Sprays in the nose twice daily. Blood-Glucose Meter monitoring kit Glucose Meter of Choice - Kit - Dx: Type 2 DM - Controlled E11.9 blood sugar diagnostic (BLOOD GLUCOSE TEST) test strip Test blood sugar(s) 1 times daily. Dx: Type 2 DM - Controlled E11.9 Insulin: No Lancets lancets Test blood sugar(s) 1 times daily. Dx: Type 2 DM - Controlled E11.9 Insulin: No metoprolol succinate ER (TOPROL XL) 25 mg 24 hr tablet Take 1 tablet by mouth once daily. pravastatin (PRAVACHOL) 40 mg tablet Take 1 tablet by mouth once daily. metFORMIN (GLUCOPHAGE) 1,000 mg tablet Take 1 tablet by mouth twice daily with meals. CPAP Heating tubing CPAP Please provide download. Please evaluate PAP device for faulty humidifier. CPAP Initiate Auto PAP @ 5-20 cm of water with humidification. Mask (per patient preference) optional chin strap (if indicated) , filters, tubing, humidifier and lifetime supplies. aspirin 81 mg chewable tablet Take 2 tablets by mouth once daily. No current facility-administered medications for this visit. ALLERGIES: ALLERGIES Allergen Reactions Lipitor [Atorvastat* Rash, Itching Codeine Rash PAST MEDICAL HISTORY Diagnosis Date Bladder cancer ([facility]) 2010 CAD S/P percutaneous coronary angioplasty 06/1999 x 5 stents, atherectomy 2013, PCI to LAD 1999 and RCA 2000 DM (diabetes mellitus) ([facility]) type 2 HTN (hypertension) Hyperlipidemia PAD (peripheral artery disease) ([facility]) 2014 s/p stent right SFA Penile cancer ([facility]) 04/08/2010 Prostate cancer ([facility]) 2006 s/p radical robotic prostatectomy [place] PAST SURGICAL HISTORY Procedure Laterality Date BIOPSY PENIS SEPARATE PROCEDURE 2010 CABG (3) VEIN GRAFTS & ARTERIAL GRAFT(S) 06/2016 COLONOSCOPY FLX DX W/COLLJ SPEC WHEN PFRMD 10/27/2016 Normal colonoscopy-10 year follow-up CYSTOSCOPY,URETEROSC,BIOPSY ESOPHAGOGASTRODUODENOSCOPY TRANSORAL DIAGNOSTIC 09/21/2017 EGD HEART SURGERY HX LAPAROSCOPIC RADICAL PROSTATECTOMY 2006 PAST SURGICAL HISTORY OF 2010 x 5 heart stents PAST SURGICAL HISTORY OF Right 2014 right lower extremity stent for PAD PAST SURGICAL HISTORY OF 07/16/2016 bypass surgery at [facility] FAMILY HISTORY Problem Relation Age of Onset Heart Mother Heart Father Aneurysm Father Stroke Father other (knee problems) Sister Heart Brother Stroke Brother Stroke Brother No Known Problems Brother No Known Problems Son No Known Problems Daughter Social History Tobacco Use Smoking status: Former Packs/day: 0.50 Years: 30.00 Additional pack years: 0.00 Total pack years: 15.00 Types: Cigarettes Quit date: 04/13/2004 Years since quittin.8 Smokeless tobacco: Never Vaping Use Vaping Use: Never used Substance Use Topics Alcohol use: Yes Comment: occs Drug use: No Reviewed current medications, allergies, past medical history, surgical history, family history and social history today. REVIEW OF SYSTEMS All other reviewed and negative other than HPI. HEALTH MAINTENANCE: Reviewed health maintenance issues today and recommended the following in detail. RSV Vaccine(1 - 1-dose 60+ series) Never done Influenza Vaccine- has had . Covid-19 Vaccine(2022- season) due on 11/27/2022 HbA1C due on 01/19/2023 Urine Albumin:Creatinine Ratio due on 01/13/2023 LDL Cholesterol due on 01/13/2023 VITALS: BP (!) 94/38 Pulse 64 Ht 177.8 cm (5' 10 ) Wt 92.5 kg (204 lb) SpO2 98% BMI 29.27 kg/m Last 4 Encounter Wt Readings: Date: Wt: 12/07/2022 92.4 kg (203 lb 9.6 oz) 10/09/2022 90.7 kg (200 lb) 08/13/2022 95.2 kg (209 lb 12.8 oz) 07/20/2022 94.9 kg (209 lb 3.2 oz) PHYSICAL EXAMINATION: General appearance: Well appearing, alert, in no acute distress, well-hydrated, well nourished. Skin: Skin color, texture, turgor normal, no suspicious rashes or lesions Head: Normocephalic, no masses, lesions, tenderness or abnormalities Lungs: Lungs clear to auscultation. No wheezing, rhonchi, rales Heart: RRR without murmur, gallop, or rubs. No ectopy Abdomen: Normal abdominal exam, Abdomen soft, non-tender. Bowel sounds normal. No masses, organomegaly Extremities: No deformities, edema, skin discoloration, clubbing or cyanosis. Good capillary refill. Musculoskeletal: No joint swelling, deformity, or tenderness Peripheral pulses: Normal Neuro: Parkinson's facies. ASSESSMENT/PLAN: 1. Diabetic polyneuropathy associated with type 2 diabetes mellitus (HCC) - ICD9: 250.60, 357.2, ICD10: E11.42 (primary diagnosis) - will follow labs. 2. Parkinson's disease with fluctuating manifestations, unspecified whether dyskinesia present - ICD9: 332.0, ICD10: G20.A2 - per neurology 3. 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 Primary hypertension - ICD9: 401.9, ICD10: I10 - has bene stable. 5. Malignant neoplasm of overlapping sites of bladder (HCC) - ICD9: 188.8, ICD10: C67.8 - check ua. - URINALYSIS, WITH MICROSCOPIC 6. Diabetes mellitus with microalbuminuria (HCC) - ICD9: 250.40, 791.0, ICD10: E11.29, R80.9 - Controlled - Continue current medications - COMP METABOLIC PANEL - LIPID PANEL, NONFASTING - HGB A1C - ALBUMIN/CREAT RATIO RND UR 7. Malignant neoplasm of prostate (HCC) - ICD9: 185, ICD10: C61 - check labs. 8. Penile cancer (HCC) - ICD9: 187.4, ICD10: C60.9 - URINALYSIS, WITH MICROSCOPIC 9. PIEDAD (obstructive sleep apnea) - ICD9: 327.23, ICD10: G47.33 - continue tx. 10. PAD (peripheral artery disease) (HCC) - ICD9: 443.9, ICD10: I73.9 - no complaints. 11. Iron deficiency anemia, unspecified iron deficiency anemia type - ICD9: 280.9, ICD10: D50.9 - follow lab.s - CBC + DIFF 12. Dyslipidemia - ICD9: 272.4, ICD10: E78.5 - stable. 13. Spinal stenosis in cervical region - ICD9: 723.0, ICD10: M48.02 - stable. 14. Screening for prostate cancer - ICD9: V76.44, ICD10: Z12.5 - PSA/PROSTSPECAG SCRN Eliceo Drummond MD RTO in six months. documented in this encounter [facility] 01-20-2023 Miscellaneous Notes Fax with providers response sent back to [facility]. Jennifer Ivey LPN Not without evaluation. Cognition was ok last month when I saw him. Eliceo Khan MD Please see below fax from [place]. Pt PATRICIA with Dr. Khan 12/07/22. PATRICIA with Dr. Drummond 10/09/22. Scan on 01/20/2023 8:26 AM by Provider, External, PAAdeolaC: DIONI Ivey LPN documented in this encounter [facility] 01-20-2023 Miscellaneous Notes Form completed/faxed. Fahad Turner LPN Type of form: NH orders/patient update Form received via fax When form is completed, Fax form to [phone] Form has been forwarded to Physician Desk: Dr. Lm Turner LPN documented in this encounter [facility] 12-08-2022 Miscellaneous Notes OV note from patients Neurology visit 12/07/22 with STANLEY faxed to [facility] as requested. . Nothing further at this time. JOSE Snow documented in this encounter [facility] 12-07-2022 Note HNO ID: [id number] Author: Eliceo Khan Jr., MD Service: ? Author Type: Physician Type: Progress Notes Filed: 12/07/2022 6:31 PM Note Text: ESTABLISHED PATIENT VISIT CHIEF COMPLAINT: Follow Up HISTORY OF PRESENT ILLNESS: Rm Chau is a 82 year old male, BMI 29.21 kg/m2 with a PMH significant for PD, PIEDAD, Neuropathy, RLS for which pt was last seen by Chelly Bullock CNP on 08/13/22. Per note: G20 Parkinson disease (HCC) (primary encounter diagnosis) R13.10 Dysphagia, unspecified type R26.9 Abnormality of gait Comment: Pt currently taking Sinemet CR 50-200mg QHS as well as Sinemet 25-100mg 2 tabs TID with meals. He denies SE from medications. Exam relatively similar to that noted at previous appointment. He continues to attend PT as well as work on HEP. Consult also previously placed to speech therapy for concern of dysphagia. He is currently working with ST on modifying liquids due to concerns noted above. Will continue medications as previously prescribed. No RF needed at time of appt today. E11.42 Diabetic polyneuropathy associated with type 2 diabetes mellitus (HCC) G25.81 RLS (restless legs syndrome) Comment: At time of previous appointment pt with worsening of RLS. Concern for augmentation due to increased dose of Sinemet as adjusted by patient. Sinemet was changed to dose noted above. In addition, Gabapentin increased so that he is taking 300mg at dinner and 600mg at bedtime. He reports no improvement of symptoms with change in medications. Still needing to get up to ambulate prior to falling asleep. At this time will increase gabapentin to 600mg with dinner and continue 600mg at bedtime. Renal panel reviewed and WNL. G47.33 PIEDAD (obstructive sleep apnea) Comment: Pt denies concerns regarding PAP. Compliance report reviewed as noted above. AHI normalized. Encouraged pt to continue to remain complaint with PAP and use fore entire duration of the night while sleeping. Reminded pt to clean and replace equipment regularly. PAP data download for past 90 days shows used 67 days for avg of 7 hours and 4 minutes. 95% pressure 14.5 cmH2O. 95% leak of 18.4 LPM. AHI 3.6. Pt accompanied by daughter. During interim went to ER for multiple complaints but reportedly per patient and family, physically nothing wrong on exam. However, was admitted to the acute rehab unit. During that time was also started on Elavil that helped sleep and depression and Zoloft was also increased . Since then, was moved to assisted living with (separate rooms). Now getting meds more regularly as they were messed up . Pt currently getting gabapentin 300mg at dinner and 600mg qhs. RLS currently not bothering patient. Lack of use per PAP was due to a broken piece. Pt feels PD is terrible and sucks. Pt not aware of on-off effect. No time of day does better than others. Still in physical therapy. Feels like mobility can be better at times in the AM. Wake him up at 730AM to get dressed. Few falls. B/B stable. For patient most bothersome feature of PD is balance. Sleep during day, but associated with therapy. Pt takes pills with applesauce - had full swallow study in hospital. Not needing thickened liquids. Appetite good. No constipation. No parasomnias. REVIEW OF SYSTEMS GENERAL:No weight loss, malaise or fevers. HEENT:Negative for frequent or significant headaches, No changes in hearing or vision, no nose bleeds or other nasal problems NECK:Negative for lumps, goiter, pain and significant neck swelling RESPIRATORY: Negative for cough, wheezing or shortness of breath. CARDIOVASCULAR: Negative for chest pain, leg swelling or palpitations. GASTROINTESTINAL: Negative for abdominal discomfort, blood in stools or black stools or change in bowel habits GENITOURINARY: No history of dysuria, frequency or incontinence MUSCULOSKELETAL: Negative for joint pain or swelling, back pain or muscle pain. NEUROLOGIC:See HPI. LAB/IMAGING: Those performed since patient's last visit have been reviewed. WBC (k/uL) Date Value 10/09/2022 9.63 RBC (m/uL) Date Value 10/09/2022 4.00 (L) Hemoglobin (g/dL) Date Value 10/09/2022 11.3 (L) Hematocrit (%) Date Value 10/09/2022 34.6 (L) MCV (fL) Date Value 10/09/2022 86.5 MCH (pg) Date Value 10/09/2022 28.3 MCHC (g/dL) Date Value 10/09/2022 32.7 RDW-CV (%) Date Value 10/09/2022 12.6 Platelet Count (k/uL) Date Value 10/09/2022 245 MPV (fL) Date Value 10/09/2022 10.9 Glucose (mg/dL) Date Value 07/20/2022 184 (H) BUN (mg/dL) Date Value 07/20/2022 23 Creatinine (mg/dL) Date Value 07/20/2022 0.89 Sodium (mmol/L) Date Value 07/20/2022 137 Potassium (mmol/L) Date Value 07/20/2022 5.1 Chloride (mmol/L) Date Value 07/20/2022 100 CO2 (mmol/L) Date Value 07/20/2022 27 Protein, Total (g/dL) Date Value 01/13/2022 7.3 Albumin (g/dL) Date Value 01/13/2022 4.5 Calcium, Total (mg/dL) (more content not included)... [facility] 12-07-2022 History of Presen t illness Narrative ESTABLISHED PATIENT VISIT CHIEF COMPLAINT: Follow Up HISTORY OF PRESENT ILLNESS: Rm Chau is a 82 year old male, BMI 29.21 kg/m2 with a PMH significant for PD, PIEDAD, Neuropathy, RLS for which pt was last seen by Chelly Bullock CNP on 08/13/22. Per note: G20 Parkinson disease (HCC) (primary encounter diagnosis) R13.10 Dysphagia, unspecified type R26.9 Abnormality of gait Comment: Pt currently taking Sinemet CR 50-200mg QHS as well as Sinemet 25-100mg 2 tabs TID with meals. He denies SE from medications. Exam relatively similar to that noted at previous appointment. He continues to attend PT as well as work on HEP. Consult also previously placed to speech therapy for concern of dysphagia. He is currently working with ST on modifying liquids due to concerns noted above. Will continue medications as previously prescribed. No RF needed at time of appt today. E11.42 Diabetic polyneuropathy associated with type 2 diabetes mellitus (HCC) G25.81 RLS (restless legs syndrome) Comment: At time of previous appointment pt with worsening of RLS. Concern for augmentation due to increased dose of Sinemet as adjusted by patient. Sinemet was changed to dose noted above. In addition, Gabapentin increased so that he is taking 300mg at dinner and 600mg at bedtime. He reports no improvement of symptoms with change in medications. Still needing to get up to ambulate prior to falling asleep. At this time will increase gabapentin to 600mg with dinner and continue 600mg at bedtime. Renal panel reviewed and WNL. G47.33 PIEDAD (obstructive sleep apnea) Comment: Pt denies concerns regarding PAP. Compliance report reviewed as noted above. AHI normalized. Encouraged pt to continue to remain complaint with PAP and use fore entire duration of the night while sleeping. Reminded pt to clean and replace equipment regularly. PAP data download for past 90 days shows used 67 days for avg of 7 hours and 4 minutes. 95% pressure 14.5 cmH2O. 95% leak of 18.4 LPM. AHI 3.6. Pt accompanied by daughter. During interim went to ER for multiple complaints but reportedly per patient and family, physically nothing wrong on exam. However, was admitted to the acute rehab unit. During that time was also started on Elavil that helped sleep and depression and Zoloft was also increased . Since then, was moved to assisted living with (separate rooms). Now getting meds more regularly as they were messed up . Pt currently getting gabapentin 300mg at dinner and 600mg qhs. RLS currently not bothering patient. Lack of use per PAP was due to a broken piece. Pt feels PD is terrible and sucks. Pt not aware of on-off effect. No time of day does better than others. Still in physical therapy. Feels like mobility can be better at times in the AM. Wake him up at 730AM to get dressed. Few falls. B/B stable. For patient most bothersome feature of PD is balance. Sleep during day, but associated with therapy. Pt takes pills with applesauce - had full swallow study in hospital. Not needing thickened liquids. Appetite good. No constipation. No parasomnias. REVIEW OF SYSTEMS GENERAL:No weight loss, malaise or fevers. HEENT:Negative for frequent or significant headaches, No changes in hearing or vision, no nose bleeds or other nasal problems NECK:Negative for lumps, goiter, pain and significant neck swelling RESPIRATORY: Negative for cough, wheezing or shortness of breath. CARDIOVASCULAR: Negative for chest pain, leg swelling or palpitations. GASTROINTESTINAL: Negative for abdominal discomfort, blood in stools or black stools or change in bowel habits GENITOURINARY: No history of dysuria, frequency or incontinence MUSCULOSKELETAL: Negative for joint pain or swelling, back pain or muscle pain. NEUROLOGIC:See HPI. LAB/IMAGING: Those performed since patient's last visit have been reviewed. WBC (k/uL) Date Value 10/09/2022 9.63 RBC (m/uL) Date Value 10/09/2022 4.00 (L) Hemoglobin (g/dL) Date Value 10/09/2022 11.3 (L) Hematocrit (%) Date Value 10/09/2022 34.6 (L) MCV (fL) Date Value 10/09/2022 86.5 MCH (pg) Date Value 10/09/2022 28.3 MCHC (g/dL) Date Value 10/09/2022 32.7 RDW-CV (%) Date Value 10/09/2022 12.6 Platelet Count (k/uL) Date Value 10/09/2022 245 MPV (fL) Date Value 10/09/2022 10.9 Glucose (mg/dL) Date Value 07/20/2022 184 (H) BUN (mg/dL) Date Value 07/20/2022 23 Creatinine (mg/dL) Date Value 07/20/2022 0.89 Sodium (mmol/L) Date Value 07/20/2022 137 Potassium (mmol/L) Date Value 07/20/2022 5.1 Chloride (mmol/L) Date Value 07/20/2022 100 CO2 (mmol/L) Date Value 07/20/2022 27 Protein, Total (g/dL) Date Value 01/13/2022 7.3 Albumin (g/dL) Date Value 01/13/2022 4.5 Calcium, Total (mg/dL) Date Value 07/20/2022 9.4 Alkaline Phosphatase (U/L) Date Value 01/13/2022 68 Bilirubin, Total (mg/dL) Date Value 01/13/2022 0.3 AST (U/L) Date Value 01/13/2022 24 ALT (U/L) Date Value 01/13/2022 13 MEDICATIONS: ferrous sulfate 325 mg (65 mg iron) tablet Take 325 mg by mouth. carbidopa-levodopa CR (SINEMET CR) 50-200 mg per tablet Take 1 tablet 1 hour before bedtime. omeprazole (PRILOSEC) 20 mg capsule Take 1 capsule by mouth daily before breakfast. 1/2 hr before meal. sertraline (ZOLOFT) 50 mg tablet Take 1 tablet by mouth once daily. amitriptyline (ELAVIL) 10 mg tablet Take 1 tablet by mouth daily at bedtime. ipratropium bromide (ATROVENT) 42 mcg (0.06 %) nasal spray Use 2 Sprays in the nose twice daily. gabapentin (NEURONTIN) 300 mg capsule TAKE 1 CAPSULE AT DINNER AND 2 CAPSULE 30-60 minutes before BEDTIME sertraline (ZOLOFT) 50 mg tablet Take 1 tablet by mouth once daily. Blood-Glucose Meter monitoring kit Glucose Meter of Choice - Kit - Dx: Type 2 DM - Controlled E11.9 blood sugar diagnostic (BLOOD GLUCOSE TEST) test strip Test blood sugar(s) 1 times daily. Dx: Type 2 DM - Controlled E11.9 Insulin: No Lancets lancets Test blood sugar(s) 1 times daily. Dx: Type 2 DM - Controlled E11.9 Insulin: No carbidopa-levodopa (SINEMET 25-100) 25-100 mg per tablet TAKE 2 TABLET 3 TIMES A DAY(TAKE AT BREAKFAST, LUNCH, AND DINNER) sertraline (ZOLOFT) 25 mg tablet Take 1 tablet by mouth once daily. metoprolol succinate ER (TOPROL XL) 25 mg 24 hr tablet Take 1 tablet by mouth once daily. pravastatin (PRAVACHOL) 40 mg tablet Take 1 tablet by mouth once daily. metFORMIN (GLUCOPHAGE) 1,000 mg tablet Take 1 tablet by mouth twice daily with meals. CPAP Heating tubing CPAP Please provide download. Please evaluate PAP device for faulty humidifier. CPAP Initiate Auto PAP @ 5-20 cm of water with humidification. Mask (per patient preference) optional chin strap (if indicated) , filters, tubing, humidifier and lifetime supplies. aspirin 81 mg chewable tablet Take 2 tablets by mouth once daily. amLODIPine (NORVASC) 2.5 mg tablet Take 1 tablet by mouth once daily. (Patient not taking: Reported on 11/10/2022) losartan (COZAAR) 50 mg tablet Take 1 tablet by mouth once daily. (Patient taking differently: Take 25 mg by mouth twice daily.) HISTORIES PAST MEDICAL HISTORY Diagnosis Date Bladder cancer ([facility]) 2010 CAD S/P percutaneous coronary angioplasty 06/1999 x 5 stents, atherectomy 2013, PCI to LAD 1999 and RCA 2000 DM (diabetes mellitus) ([facility]) type 2 HTN (hypertension) Hyperlipidemia PAD (peripheral artery disease) ([facility]) 2014 s/p stent right SFA Penile cancer ([facility]) 04/08/2010 Prostate cancer ([facility]) 2006 s/p radical robotic prostatectomy [place] FAMILY HISTORY Problem Relation Age of Onset Heart Mother Heart Father Aneurysm Father Stroke Father other (knee problems) Sister Heart Brother Stroke Brother Stroke Brother No Known Problems Brother No Known Problems Son No Known Problems Daughter SOCIAL HISTORY Social History Tobacco Use Smoking status: Former Packs/day: 0.50 Years: 30.00 Additional pack years: 0.00 Total pack years: 15.00 Types: Cigarettes Quit date: 04/13/2004 Years since quittin.6 Smokeless tobacco: Never Vaping Use Vaping Use: Never used Substance Use Topics Alcohol use: Yes Comment: occs Drug use: No PHYSICAL EXAMINATION BP 144/76 Pulse 67 Resp 16 Wt 92.4 kg (203 lb 9.6 oz) SpO2 98% BMI 29.21 kg/m GENERAL EXAM: General appearance: NAD, pleasant. HEENT: NC/AT, nasal congestion absent, no oral lesions, membranes moist. NECK: ROM nml. Lungs: CTA bilaterally. CV: RRR nl S1, S2. Extr: No cyanosis, clubbing or edema. Skin: Cool to touch. NEUROLOGICAL EXAM: General: Awake, alert, oriented x3 (person,place,time), speech fluent, no dysarthria; comprehension, naming, repetition intact. Fund of knowledge grossly normal by MOCA. CN: PERRL, fundi with no evidence of papilledema, EOMI except impaired vertical eye movement VFF to confrontation, facial sensation and strength are normal and symmetric, hearing is intact to finger rub bilaterally, palate and tongue movements are intact and symmetric. SCM and trapezius strength symmetric. Motor: Increased tone in LUE, bulk and strength (5/5) bilaterally (throughout extremities x4). Coordination: FNF, HTS intact. SHERITA slightly impaired in LUE. No tremors. Sensation: Light touch, vibration, temperature intact throughout. No evidence of neglect. Gait: Unable to rise from chair without use of upper extremities. Stride decreases when turning 180 degrees and in tight corners. However, normal stride when walking a line (I.e. down hallway). Assessment and Plan: ASSESSMENT/PLAN: 1. Parkinson disease (HCC) - ICD9: 332.0, ICD10: G20 (primary diagnosis) 2. Abnormality of gait - ICD9: 781.2, ICD10: R26.9 Overall, exam appears stable. Cognitively a bit slower, but physically unchanged. Both pt and daughter would prefer not change be made to Sinemet dosing at this time. Thus, will continue Sinemet 25/100mg TID with meals and CR 50/200 QHS. Encouraged exercise and participation with therapy. 3. Diabetic polyneuropathy associated with type 2 diabetes mellitus (HCC) - ICD9: 250.60, 357.2, ICD10: E11.42 4. RLS (restless legs syndrome) - ICD9: 333.94, ICD10: G25.81 Asx on current dosing of gabapentin 300mg Q dinner and 600mg QHS. No changes to dosing at this time. 5. PIEDAD (obstructive sleep apnea) - ICD9: 327.23, ICD10: G47.33 Subjectively compliant with PAP and encouraged continued compliance. Lack of PAP use by data download due to a broken mask. Encouraged continued compliance. AHI normalized. Reminded to clean and replace equipment regularly. Pt does not drive. Eliceo Khan MD I spent a total of 35 minutes on the date of the service which included preparing to see the patient, [id number] patient care, completing clinical documentation, obtaining and/or reviewing separately obtained history, performing a medically appropriate examination, counseling and educating the patient/family/caregiver, ordering medications, tests, or procedures, independently interpreting results (not separately reported), and communicating results to the patient/family/caregiver (PAP data download). documented in this encounter [facility] 11-19-2022 Miscellaneous Notes Completed and faxed. Type of form: Long-Term Orders Form received via fax When form is completed, Fax form to [phone] Form has been forwarded to Physician Mailbox: Dr. Lm Turner LPN documented in this encounter [facility] 11-10-2022 Note HNO ID: [id number] Author: Marcos Juarez Service: ? Author Type: Physician Type: Progress Notes Filed: 11/12/2022 7:26 AM Note Text: Last saw pcp: 10/09/22 Subjective: Patient presents to clinic c/o painful toenails. They state that the nails are especially painful with shoe gear and pressure. Patient states that nails 1-5 b/l are painful. Patient admits to being diabetic. No other pedal complaints at this time. Patient states no change in medications or medical history since last visit. Objective: Patient presents to clinic ambulating in [facility] Vasc: DP and PT pulses are palapble bilateral. CFT is less than 5 seconds bilateral. Skin temperature is warm to cool proximal to distal bilateral. There is no edema or varicosities noted. Neuro: Protective sensation is intact to the foot and toes when tested with the 5.07 SWM bilateral. Vibratory sensation is decreased at the hallux IPJ bilateral. The hallux is downgoing bilateral. Derm: Nails 1-5 b/l are painful, discolored-yellow, thick, crumbly, dystrophic and with subungal debris. Skin is of normal turgor, texture and hair growth is present bilateral. There are no hyperkeratosis, ulcerations, scars, verruca or other lesions noted. Ortho: Muscle strength is 5/5 for all pedal groups tested. Ankle joint DF is full with the knee extended with no pain or crepitus noted. 1st MPJ ROM is full bilateral. Assessment: (B35.1) Onychomycosis (primary encounter diagnosis) (M79.675) Pain in toe of left foot (M79.674) Pain in toe of right foot (E11.9, Z79.4) Controlled type 2 diabetes mellitus without complication, with long-term current use of insulin ([facility]) Plan: Patient was seen and evaluated. Nails 1-5 bilateral were debrided in length and thickness. Patient was instructed on the continued importance of diabetic foot care along with proper diet and keeping their blood sugar under control to prevent complications. Patient is to RTC in 3-4 months. Marcos Juarez DPM [facility] 11-10-2022 Note HNO ID: [id number] Author: Susan Lee RN Service: ? Author Type: ? Type: Progress Notes Filed: 11/12/2022 7:26 AM Note Text: Patient presents with: Left Foot - Established Patient, Diabetic Foot Care Right Foot - Established Patient, Diabetic Foot Care Patient is here for a diabetic foot exam. [facility] 11-03-2022 Miscellaneous Notes Form signed and faxed to number provided Type of form: Nocturnal Pulse Ox order from [facility] Form received via fax When form is completed, Fax form to [phone] Form has been forwarded to Physician Mailbox: Dr. Lm Turner LPN documented in this encounter [facility] 10-28-2022 Miscellaneous Notes PATRICIA 08/13/22 with [facility] NOV 12/07/22 with [facility] Refill 06/29/22 with qty: 270 and 1 refills Jennifer Ivey LPN PATRICIA Assessment/Plan Assessment/Plan: G20 Parkinson disease (HCC) (primary encounter diagnosis) R13.10 Dysphagia, unspecified type R26.9 Abnormality of gait Comment: Pt currently taking Sinemet CR 50-200mg QHS as well as Sinemet 25-100mg 2 tabs TID with meals. He denies SE from medications. Exam relatively similar to that noted at previous appointment. He continues to attend PT as well as work on HEP. Consult also previously placed to speech therapy for concern of dysphagia. He is currently working with ST on modifying liquids due to concerns noted above. Will continue medications as previously prescribed. No RF needed at time of appt today. E11.42 Diabetic polyneuropathy associated with type 2 diabetes mellitus (HCC) G25.81 RLS (restless legs syndrome) Comment: At time of previous appointment pt with worsening of RLS. Concern for augmentation due to increased dose of Sinemet as adjusted by patient. Sinemet was changed to dose noted above. In addition, Gabapentin increased so that he is taking 300mg at dinner and 600mg at bedtime. He reports no improvement of symptoms with change in medications. Still needing to get up to ambulate prior to falling asleep. At this time will increase gabapentin to 600mg with dinner and continue 600mg at bedtime. Renal panel reviewed and WNL. G47.33 PIEDAD (obstructive sleep apnea) Comment: Pt denies concerns regarding PAP. Compliance report reviewed as noted above. AHI normalized. Encouraged pt to continue to remain complaint with PAP and use fore entire duration of the night while sleeping. Reminded pt to clean and replace equipment regularly. Susie Jeffrey APRN.MANAGER WHOLESALE documented in this encounter [facility] 10-28-2022 Miscellaneous Notes Patient has been identified by name and date of : Yes Requested Prescriptions Pending Prescriptions Disp Refills amLODIPine (NORVASC) 2.5 mg tablet 90 tablet 3 Sig: Take 1 tablet by mouth once daily. omeprazole (PRILOSEC) 20 mg capsule 90 capsule 3 Sig: Take 1 capsule by mouth daily before breakfast. 1/2 hr before meal. sertraline (ZOLOFT) 50 mg tablet 90 tablet 1 Sig: Take 1 tablet by mouth once daily. PATRICIA:10-09-22 NOV:01-27-23 RX INSTRUCTIONS: Patient aware RX will be sent to pharmacy. No need to notify patient. Mila Lee documented in this encounter [facility] 10-22-2022 Miscellaneous Notes Colleen with [facility] calls to request Face Sheet, Insurance Info, OV Note, Current Medication list with H&P. Verbal ok received from daughter Elodia to send. Faxed to [facility] per request. Analisa Grimm RN documented in this encounter [facility] 10-13-2022 Miscellaneous Notes Called and scheduled appointments. Called patient to offer patient and next available appointment together. Anna Calles LPN Please call patient to r/s his and [facility] 09/21 appts. Next available is December. documented in this encounter [facility] 10-09-2022 Note HNO ID: [id number] Author: Eliceo Drummond MD Service: ? Author Type: Physician Type: Progress Notes Filed: 10/09/2022 4:49 PM Note Text: Patient presents with: Hospital F/U HPI: Patient presents today for office visit for follow up. HOSPITAL/ER FOLLOW UP: Reason for visit: was unable to get out of bed on his own Which facility: [facility] Date of visit: 09/23/22 Discharge: 09/24/22 Diagnosis: debility Testing done: swallow eval given recommendations and due to have speech therapy work with him Treatment given: zoloft was increased to 50mg Current symptoms: states that he is feeling well Is going to be moving from independent living to assisted living. Has PT, OT, and Speech eval and hospital. Is waiting to get started on therapies at [facility]. Is having trouble with decreasing vision. Will be transferring to AL. His swallowing is doing better. No choking. Doing well with exercises. AL will be managing meds. No current falls. No new urinary issues. No bowel issues. His vision seems to be worsening. Family to get him set up with Dr Singleton. Has a lift chair and hospital bed. Seeing Dr Saab as well for lungs in October. Seeing Rm Woods at [facility] this month. Sees Dr Khan in November. MEDICATIONS: Current Outpatient Medications Medication Sig gabapentin (NEURONTIN) 300 mg capsule TAKE 1 CAPSULE AT DINNER AND 2 CAPSULE 30-60 minutes before BEDTIME Blood-Glucose Meter monitoring kit Glucose Meter of Choice - Kit - Dx: Type 2 DM - Controlled E11.9 blood sugar diagnostic (BLOOD GLUCOSE TEST) test strip Test blood sugar(s) 1 times daily. Dx: Type 2 DM - Controlled E11.9 Insulin: No Lancets lancets Test blood sugar(s) 1 times daily. Dx: Type 2 DM - Controlled E11.9 Insulin: No carbidopa-levodopa CR (SINEMET CR) 50-200 mg per tablet Take 1 tablet 1 hour before bedtime. carbidopa-levodopa (SINEMET 25-100) 25-100 mg per tablet TAKE 2 TABLET 3 TIMES A DAY(TAKE AT BREAKFAST, LUNCH, AND DINNER) sertraline (ZOLOFT) 25 mg tablet Take 1 tablet by mouth once daily. losartan (COZAAR) 25 mg tablet Take 1 tablet by mouth once daily. (Patient taking differently: Take 50 mg by mouth once daily.) amLODIPine (NORVASC) 2.5 mg tablet Take 1 tablet by mouth once daily. omeprazole (PRILOSEC) 20 mg capsule Take 1 capsule by mouth daily before breakfast. 1/2 hr before meal. metoprolol succinate ER (TOPROL XL) 25 mg 24 hr tablet Take 1 tablet by mouth once daily. pravastatin (PRAVACHOL) 40 mg tablet Take 1 tablet by mouth once daily. metFORMIN (GLUCOPHAGE) 1,000 mg tablet Take 1 tablet by mouth twice daily with meals. CPAP Heating tubing CPAP Please provide download. Please evaluate PAP device for faulty humidifier. CPAP Initiate Auto PAP @ 5-20 cm of water with humidification. Mask (per patient preference) optional chin strap (if indicated) , filters, tubing, humidifier and lifetime supplies. aspirin 81 mg chewable tablet Take 2 tablets by mouth once daily. No current facility-administered medications for this visit. ALLERGIES: ALLERGIES Allergen Reactions Lipitor [Atorvastat* Rash, Itching Codeine Rash PAST MEDICAL HISTORY Diagnosis Date Bladder cancer ([facility]) 2010 CAD S/P percutaneous coronary angioplasty 06/1999 x 5 stents, atherectomy 2013, PCI to LAD 1999 and RCA 2000 DM (diabetes mellitus) ([facility]) type 2 HTN (hypertension) Hyperlipidemia PAD (peripheral artery disease) ([facility]) 2014 s/p stent right SFA Penile cancer (HCC) 04/08/2010 Prostate cancer (HCC) 2006 s/p radical robotic prostatectomy Snoring PAST SURGICAL HISTORY Procedure Laterality Date BIOPSY PENIS SEPARATE PROCEDURE 2010 CABG (3) VEIN GRAFTS AND ARTERIAL GRAFT(S) 06/2016 COLONOSCOPY FLX DX W/COLLJ SPEC WHEN PFRMD 10/27/2016 Normal colonoscopy-10 year follow-up CYSTOSCOPY,URETEROSC,BIOPSY ESOPHAGOGASTRODUODENOSCOPY TRANSORAL DIAGNOSTIC 09/21/2017 EGD HEART SURGERY HX LAPAROSCOPIC RADICAL PROSTATECTOMY 2006 PAST SURGICAL HISTORY OF 2010 x 5 heart stents PAST SURGICAL HISTORY OF Right 2014 right lower extremity stent for PAD PAST SURGICAL HISTORY OF 07/16/2016 bypass surgery at [facility] FAMILY HISTORY Problem Relation Age of Onset Heart Mother Heart Father Aneurysm Father Stroke Father other (knee problems) Sister Heart Brother Stroke Brother Stroke Brother No Known Problems Brother No Known Problems Son No Known Problems Daughter Social History Tobacco Use Smoking status: Former Packs/day: 0.50 Years: 30.00 Total pack years: 15.00 Types: Cigarettes Quit date: 04/13/2004 Years since quittin.5 Smokeless tobacco: Never Vaping Use Vaping Use: Never used Substance Use Topics Alcohol use: Yes Comment: occs Drug use: No Reviewed current medications, allergies, past medical history, surgical history, family history and social history today. REVIEW OF SYSTEMS All other reviewed and negative other than HP (more content not included)... [facility] 10-09-2022 History of Presen t illness Narrative Patient presents with: Hospital F/U HPI: Patient presents today for office visit for follow up. HOSPITAL/ER FOLLOW UP: Reason for visit: was unable to get out of bed on his own Which facility: [facility] Date of visit: 09/23/22 Discharge: 09/24/22 Diagnosis: debility Testing done: swallow eval given recommendations and due to have speech therapy work with him Treatment given: zoloft was increased to 50mg Current symptoms: states that he is feeling well Is going to be moving from independent living to assisted living. Has PT, OT, and Speech eval and hospital. Is waiting to get started on therapies at [facility]. Is having trouble with decreasing vision. Will be transferring to [place]. His swallowing is doing better. No choking. Doing well with exercises. AL will be managing meds. No current falls. No new urinary issues. No bowel issues. His vision seems to be worsening. Family to get him set up with Dr Singleton. Has a lift chair and hospital bed. Seeing Dr Saab as well for lungs in October. Seeing Rm Woods at [facility] this month. Sees Dr Khan in November. MEDICATIONS: Current Outpatient Medications Medication Sig gabapentin (NEURONTIN) 300 mg capsule TAKE 1 CAPSULE AT DINNER AND 2 CAPSULE 30-60 minutes before BEDTIME Blood-Glucose Meter monitoring kit Glucose Meter of Choice - Kit - Dx: Type 2 DM - Controlled E11.9 blood sugar diagnostic (BLOOD GLUCOSE TEST) test strip Test blood sugar(s) 1 times daily. Dx: Type 2 DM - Controlled E11.9 Insulin: No Lancets lancets Test blood sugar(s) 1 times daily. Dx: Type 2 DM - Controlled E11.9 Insulin: No carbidopa-levodopa CR (SINEMET CR) 50-200 mg per tablet Take 1 tablet 1 hour before bedtime. carbidopa-levodopa (SINEMET 25-100) 25-100 mg per tablet TAKE 2 TABLET 3 TIMES A DAY(TAKE AT BREAKFAST, LUNCH, AND DINNER) sertraline (ZOLOFT) 25 mg tablet Take 1 tablet by mouth once daily. losartan (COZAAR) 25 mg tablet Take 1 tablet by mouth once daily. (Patient taking differently: Take 50 mg by mouth once daily.) amLODIPine (NORVASC) 2.5 mg tablet Take 1 tablet by mouth once daily. omeprazole (PRILOSEC) 20 mg capsule Take 1 capsule by mouth daily before breakfast. 1/2 hr before meal. metoprolol succinate ER (TOPROL XL) 25 mg 24 hr tablet Take 1 tablet by mouth once daily. pravastatin (PRAVACHOL) 40 mg tablet Take 1 tablet by mouth once daily. metFORMIN (GLUCOPHAGE) 1,000 mg tablet Take 1 tablet by mouth twice daily with meals. CPAP Heating tubing CPAP Please provide download. Please evaluate PAP device for faulty humidifier. CPAP Initiate Auto PAP @ 5-20 cm of water with humidification. Mask (per patient preference) optional chin strap (if indicated) , filters, tubing, humidifier and lifetime supplies. aspirin 81 mg chewable tablet Take 2 tablets by mouth once daily. No current facility-administered medications for this visit. ALLERGIES: ALLERGIES Allergen Reactions Lipitor [Atorvastat* Rash, Itching Codeine Rash PAST MEDICAL HISTORY Diagnosis Date Bladder cancer (HCC) 2010 CAD S/P percutaneous coronary angioplasty 06/1999 x 5 stents, atherectomy 2013, PCI to LAD 1999 and RCA 2000 DM (diabetes mellitus) ([facility]) type 2 HTN (hypertension) Hyperlipidemia PAD (peripheral artery disease) ([facility]) 2014 s/p stent right SFA Penile cancer (HCC) 04/08/2010 Prostate cancer (HCC) 2007 s/p radical robotic prostatectomy Snoring PAST SURGICAL HISTORY Procedure Laterality Date BIOPSY PENIS SEPARATE PROCEDURE 2010 CABG (3) VEIN GRAFTS & ARTERIAL GRAFT(S) 06/2016 COLONOSCOPY FLX DX W/COLLJ SPEC WHEN PFRMD 10/27/2016 Normal colonoscopy-10 year follow-up CYSTOSCOPY,URETEROSC,BIOPSY ESOPHAGOGASTRODUODENOSCOPY TRANSORAL DIAGNOSTIC 09/21/2017 EGD HEART SURGERY HX LAPAROSCOPIC RADICAL PROSTATECTOMY 2006 PAST SURGICAL HISTORY OF 2010 x 5 heart stents PAST SURGICAL HISTORY OF Right 2015 right lower extremity stent for PAD PAST SURGICAL HISTORY OF 07/16/2016 bypass surgery at [facility] FAMILY HISTORY Problem Relation Age of Onset Heart Mother Heart Father Aneurysm Father Stroke Father other (knee problems) Sister Heart Brother Stroke Brother Stroke Brother No Known Problems Brother No Known Problems Son No Known Problems Daughter Social History Tobacco Use Smoking status: Former Packs/day: 0.50 Years: 30.00 Total pack years: 15.00 Types: Cigarettes Quit date: 04/13/2004 Years since quittin.5 Smokeless tobacco: Never Vaping Use Vaping Use: Never used Substance Use Topics Alcohol use: Yes Comment: occs Drug use: No Reviewed current medications, allergies, past medical history, surgical history, family history and social history today. REVIEW OF SYSTEMS All other reviewed and negative other than HPI. HEALTH MAINTENANCE: Reviewed health maintenance issues today and recommended the following in detail. DIABETIC FOOT EXAM-sees podiatry regularly. VITALS: BP 128/60 Pulse (!) 59 Wt 90.7 kg (200 lb) SpO2 95% BMI 28.70 kg/m Last 4 Encounter Wt Readings: Date: Wt: 08/13/2022 95.2 kg (209 lb 12.8 oz) 07/20/2022 94.9 kg (209 lb 3.2 oz) 06/29/2022 92.4 kg (203 lb 9.6 oz) 01/13/2022 94.8 kg (209 lb) PHYSICAL EXAMINATION: General appearance: Well appearing, alert, in no acute distress, well-hydrated, well nourished. Skin: Skin color, texture, turgor normal, no suspicious rashes or lesions Head: Normocephalic, no masses, lesions, tenderness or abnormalities Lungs: Lungs clear to auscultation. No wheezing, rhonchi, rales Heart: RRR without murmur, gallop, or rubs. No ectopy Abdomen: Normal abdominal exam, Abdomen soft, non-tender. Bowel sounds normal. No masses, organomegaly Extremities: No deformities, edema, skin discoloration, clubbing or cyanosis. Good capillary refill. Musculoskeletal: No joint swelling, deformity, or tenderness Peripheral pulses: Normal Neuro: parkinson's facies. Using walker. Speech slowed. No worsening tremor. ASSESSMENT/PLAN: 1. Parkinson disease (HCC) - ICD9: 332.0, ICD10: G20 (primary diagnosis) - agree with AL placement. Follow up with Dr Khan. Will let him know he was in TCU for worsening of his symptoms. Continue speech therapy exercises. Follow with optho given his worsening vision. Discussed getting up slowly and using safety issues. 2. Diabetic polyneuropathy associated with type 2 diabetes mellitus (HCC) - ICD9: 250.60, 357.2, ICD10: E11.42 - sugars have been stable. 3. Ataxia - ICD9: 781.3, ICD10: R27.0 - as above. 4. 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 5. Primary hypertension - ICD9: 401.9, ICD10: I10 - Controlled - Continue current medications 6. 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 7. Iron deficiency anemia, unspecified iron deficiency anemia type - ICD9: 280.9, ICD10: D50.9 - recheck labs. Follow progress. May be more anemia of CD. Eliceo Drummond MD Keep next appt. documented in this encounter [facility] 09-25-2022 Miscellaneous Notes See Denise bob from 09/24/22. Pt's daughter Elodia Crawley calling with an update on pt. She states pt had become weaker at [facility] and was not able to get out of bed. He is currently admitted at [facility] hospital to evaluate pt. He is currently receiving PT and speech therapy. Reports pt is grumpy, cranky, and more agitated. She and her mother Mercy were both on the phone as mother is POA on current AD in the chart. Pt's daughter states there is currently an updated one which her as POA. She will bring in a copy. Due to pt's agitation and mood changes, they were wanting Zoloft increased or something to help with this. We recommended they talk to the hospital physician. They also wanted a RX for a lift chair and PT. We told them to talk with the SW at [facility] to see her if they can assist with setting this up at [facility] upon discharge. They will do that and only call us if they need any further assistance. documented in this encounter [facility] 08-13-2022 Note HNO ID: [id number] Author: Susie Jeffrey APRN.MANAGER WHOLESALE Service: ? Author Type: Nurse Practitioner Type: Progress Notes Filed: 08/14/2022 4:22 PM Note Text: [facility] Follow-up Visit Follow-up note August 13, 2022 HPI: Mr. Chau presents today for a follow-up visit. Per his previous visit with Dr. Khan on 06/29/22: 1. Parkinson's disease (HCC) - ICD9: 332.0, ICD10: G20 (primary diagnosis) 2. Dysphagia, unspecified type - ICD9: 787.20, ICD10: R13.10 3. Abnormality of gait - ICD9: 781.2, ICD10: R26.9 PD on exam stable. However, patient has increased meds as reported above, without our direction. This includes taking multiple sinemet tabs at bedtime. I will continue on 25/100mg 2 tabs TID with meals as he appears to be tolerating. He will continue Sinemet CR 50/200 at bedtime. I have also encouraged him to continue with PT but also try to exercise on own with pt having access to Nustep at his facility. They will get him a new pill box and advised pt only take what is Rx'd. As for dysphagia, will make referral to speech therapy for further evaluation. 4. Diabetic polyneuropathy associated with type 2 diabetes mellitus (HCC) - ICD9: 250.60, 357.2, ICD10: E11.42 5. RLS (restless legs syndrome) - ICD9: 333.94, ICD10: G25.81 While neuropathy stable, I am concerned that subjective complaints of worsening RLS in fact due to augmentation with pt taking larger amounts of Sinemet then Rx'd. Will have pt reduce dosing to Sinemet as above. For further control of RLS, will continue Gabapentin 300mg at dinner but increase dose prior to bedtime to 600mg. SE and ADRs d/w pt. Appropriate dosing per renal function. 6. PIEDAD (obstructive sleep apnea) - ICD9: 327.23, ICD10: G47.33 Doing well subjectively and objectively. Encouraged pt to continue to remain complaint with PAP. Reminded pt to clean and replace equipment regularly. Pt does not drive. Follow up 2-3 months with KAYLA. Has increased medication to two tablets three times daily. Feels like he is doing well but does not feel there has been much change. Was taking too many tablets at night. Still feels like CR dose at night. No breakthrough symptoms throughout the day. Denies tremors. Denies falls. Does not freeze when walking. Has been going to PT 2x per week. Going to ST once per week. Using walker regularly. No changes in diet from ST. Tried thickened lemonade and will be trying thicker drink tomorrow. Did have a period of time where his PAP malfunctioned. Will get up and go to the bathroom and sometimes not put PAP back on. No issues with mask or pressure. Sometimes has phlegm in his throat; feels its from the liquids he is drinking. Working with ST to determine if liquids need to stay thickened. RLS depends on the day. He will get up to walk through his apartment at times and this will help him sleep. No change in sx after adjusting Sinemet. No change in symptoms since increasing gabapentin dose at bedtime. Takes one capsule at dinner and two capsules at bedtime. States sx are hit and miss. Sometimes not a problem at all. *PAP download reviewed. Worn for 62/90 days for an average of 3 hours and 51 minutes. Settings 5-20cm H2O. AHI of 1.0. Leak 95th percentile 2.8. PAST MEDICAL HISTORY Diagnosis Date Bladder cancer ([facility]) 2010 CAD S/P percutaneous coronary angioplasty 06/1999 x 5 stents, atherectomy 2013, PCI to LAD 1999 and RCA 2000 DM (diabetes mellitus) ([facility]) type 2 HTN (hypertension) Hyperlipidemia PAD (peripheral artery disease) ([facility]) 2014 s/p stent right SFA Penile cancer ([facility]) 04/08/2010 Prostate cancer ([facility]) 2006 s/p radical robotic prostatectomy Snoring PAST SURGICAL HISTORY Procedure Laterality Date BIOPSY PENIS SEPARATE PROCEDURE 2010 CABG (3) VEIN GRAFTS AND ARTERIAL GRAFT(S) 06/2016 COLONOSCOPY FLX DX W/COLLJ SPEC WHEN PFRMD 10/27/2016 Normal colonoscopy-10 year follow-up CYSTOSCOPY,URETEROSC,BIOPSY ESOPHAGOGASTRODUODENOSCOPY TRANSORAL DIAGNOSTIC 09/21/2017 EGD HEART SURGERY HX LAPAROSCOPIC RADICAL PROSTATECTOMY 2006 PAST SURGICAL HISTORY OF 2010 x 5 heart stents PAST SURGICAL HISTORY OF Right 2014 right lower extremity stent for PAD PAST SURGICAL HISTORY OF 07/16/2016 bypass surgery at [facility] Current Outpatient Medications on File Prior to Visit Medication Sig Blood-Glucose Meter monitoring kit Glucose Meter of Choice - Kit - Dx: Type 2 DM - Controlled E11.9 blood sugar diagnostic (BLOOD GLUCOSE TEST) test strip Test blood sugar(s) 1 times daily. Dx: Type 2 DM - Controlled E11.9 Insulin: No Lancets lancets Test blood sugar(s) 1 times daily. Dx: Type 2 DM - Controlled E11.9 Insulin: No carbidopa-levodopa CR (SINEMET CR) 50-200 mg per tablet Take 1 tablet 1 hour before bedtime. carbidopa-levodopa (SINEMET 25-100) 25-100 mg per tablet TAKE 2 TABLET 3 TIMES A DAY(TAKE AT BREAKFAST, LUNCH, AND DINNER) gabapentin (NEURONTIN) 300 mg caps (more content not included)... [facility] 08-07-2022 Miscellaneous Notes Orders signed by provider and faxed back as instructed below. Documents also uploaded to patient chart. JOSE Snow Type of form: Physical Therapy Orders Form received via fax When form is completed, Fax form to [place] [employer] [facility] at [phone] Form has been forwarded to Physician Desk: JOSE Elizalde documented in this encounter [facility] 07-22-2022 Miscellaneous Notes Patient returned call and given provider's message below and patient verbalized understanding. Juan Martinez RN Left message for patient to return call. Thuy Carey Ma Labs are stable, except slighlty more anemic. Recheck labs in two weeks. Will need ifobt documented in this encounter [facility] 07-21-2022 Miscellaneous Notes Trinh Bey with [facility] [employer] [facility] calls to request the order for ST eval and TX be faxed to them. Order faxed per requested to [phone] as consult order specified [facility]. Analisa Grimm RN documented in this encounter [facility] 07-20-2022 Note HNO ID: [id number] Author: Eliceo Drummond MD Service: ? Author Type: Physician Type: Progress Notes Filed: 07/20/2022 10:27 AM Note Text: Patient presents with: 6 Month Exam HPI: Patient presents today for office visit for follow up. HTN: Does not monitor BP at home Consistent with taking medications daily. Ran out of Furosemide about 6 months ago and never got a refill. He just stopped taking it. No issues. No hx of chf . Red flags for re-assessment reviewed with patient in detail. No chest pain No shortness of breath No edema No headaches No dizziness No syncope No palpitations Followed by Cardiology. No issues. Follows with Dr. Khan, neuro. Last OV 06/29/22. Taking Sinemet for Parkinson's. A couple falls since last visit. Ambulates with walker. DM: Needs refill on testing supplies Has not checked sugars in about 3 months Some vision changes. Laser procedure done with Dr. Singleton for some cloudiness. Denies foot lesions, numbness and pain. Followed by Dr. Juarez No unexpected weight loss Does not watch diet very closely GERD: Symptoms controlled Family says not to stop zoloft. Doing well. MEDICATIONS: Current Outpatient Medications Medication Sig carbidopa-levodopa CR (SINEMET CR) 50-200 mg per tablet Take 1 tablet 1 hour before bedtime. carbidopa-levodopa (SINEMET 25-100) 25-100 mg per tablet TAKE 2 TABLET 3 TIMES A DAY(TAKE AT BREAKFAST, LUNCH, AND DINNER) gabapentin (NEURONTIN) 300 mg capsule TAKE 1 CAPSULE AT DINNER AND 2 CAPSULE 30-60 minutes before BEDTIME sertraline (ZOLOFT) 25 mg tablet Take 1 tablet by mouth once daily. losartan (COZAAR) 25 mg tablet Take 1 tablet by mouth once daily. (Patient taking differently: Take 50 mg by mouth once daily.) amLODIPine (NORVASC) 2.5 mg tablet Take 1 tablet by mouth once daily. omeprazole (PRILOSEC) 20 mg capsule Take 1 capsule by mouth daily before breakfast. 1/2 hr before meal. metoprolol succinate ER (TOPROL XL) 25 mg 24 hr tablet Take 1 tablet by mouth once daily. pravastatin (PRAVACHOL) 40 mg tablet Take 1 tablet by mouth once daily. metFORMIN (GLUCOPHAGE) 1,000 mg tablet Take 1 tablet by mouth twice daily with meals. Blood-Glucose Meter monitoring kit Glucose Meter of Choice - Kit - Dx: Type 2 DM - Controlled E11.9 blood sugar diagnostic (BLOOD GLUCOSE TEST) test strip Test blood sugar(s) 1 times daily. Dx: Type 2 DM - Controlled E11.9 Insulin: No Lancets lancets Test blood sugar(s) 1 times daily. Dx: Type 2 DM - Controlled E11.9 Insulin: No CPAP Heating tubing CPAP Please provide download. Please evaluate PAP device for faulty humidifier. CPAP Initiate Auto PAP @ 5-20 cm of water with humidification. Mask (per patient preference) optional chin strap (if indicated) , filters, tubing, humidifier and lifetime supplies. aspirin 81 mg chewable tablet Take 2 tablets by mouth once daily. Current Facility-Administered Medications Medication Dose Route Frequency leuprolide (6 month) 45 mg IM syringe kit (LUPRON) 45 mg INTRAMUSCULAR Q 6 MONTH ALLERGIES: ALLERGIES Allergen Reactions Lipitor [Atorvastat* Rash, Itching Codeine Rash PAST MEDICAL HISTORY Diagnosis Date Bladder cancer ([facility]) 2010 CAD S/P percutaneous coronary angioplasty 06/1999 x 5 stents, atherectomy 2013, PCI to LAD 1999 and RCA 2000 DM (diabetes mellitus) ([facility]) type 2 HTN (hypertension) Hyperlipidemia PAD (peripheral artery disease) ([facility]) 2014 s/p stent right SFA Penile cancer ([facility]) 04/08/2010 Prostate cancer ([facility]) 2006 s/p radical robotic prostatectomy [place] PAST SURGICAL HISTORY Procedure Laterality Date BIOPSY PENIS SEPARATE PROCEDURE 2010 CABG (3) VEIN GRAFTS AND ARTERIAL GRAFT(S) 06/2016 COLONOSCOPY FLX DX W/COLLJ SPEC WHEN PFRMD 10/27/2016 Normal colonoscopy-10 year follow-up CYSTOSCOPY,URETEROSC,BIOPSY ESOPHAGOGASTRODUODENOSCOPY TRANSORAL DIAGNOSTIC 09/21/2017 EGD HEART SURGERY HX LAPAROSCOPIC RADICAL PROSTATECTOMY 2006 PAST SURGICAL HISTORY OF 2010 x 5 heart stents PAST SURGICAL HISTORY OF Right 2014 right lower extremity stent for PAD PAST SURGICAL HISTORY OF 07/16/2016 bypass surgery at [facility] FAMILY HISTORY Problem Relation Age of Onset Heart Mother Heart Father Aneurysm Father Stroke Father other (knee problems) Sister Heart Brother Stroke Brother Stroke Brother No Known Problems Brother No Known Problems Son No Known Problems Daughter Social History Tobacco Use Smoking status: Former Packs/day: 0.50 Years: 30.00 Pack years: 15.00 Types: Cigarettes Quit date: 04/13/2004 Years since quittin.2 Smokeless tobacco: Never Vaping Use Vaping Use: Never used Substance Use Topics Alcohol use: Yes Comment: [facility] Drug use: No Reviewed current medications, allergies, past medical history, surgical history, family history and social history today. REVIEW OF SYSTEMS No issues with urine or bowels or appetite. (more content not included)... [facility] 07-20-2022 History of Presen t illness Narrative Patient presents with: 6 Month Exam HPI: Patient presents today for office visit for follow up. HTN: Does not monitor BP at home Consistent with taking medications daily. Ran out of Furosemide about 6 months ago and never got a refill. He just stopped taking it. No issues. No hx of chf . Red flags for re-assessment reviewed with patient in detail. No chest pain No shortness of breath No edema No headaches No dizziness No syncope No palpitations Followed by Cardiology. No issues. Follows with Dr. Khan, neuro. Last OV 06/29/22. Taking Sinemet for Parkinson's. A couple falls since last visit. Ambulates with walker. DM: Needs refill on testing supplies Has not checked sugars in about 3 months Some vision changes. Laser procedure done with Dr. Singleton for some cloudiness. Denies foot lesions, numbness and pain. Followed by Dr. Juarez No unexpected weight loss Does not watch diet very closely GERD: Symptoms controlled Family says not to stop zoloft. Doing well. MEDICATIONS: Current Outpatient Medications Medication Sig carbidopa-levodopa CR (SINEMET CR) 50-200 mg per tablet Take 1 tablet 1 hour before bedtime. carbidopa-levodopa (SINEMET 25-100) 25-100 mg per tablet TAKE 2 TABLET 3 TIMES A DAY(TAKE AT BREAKFAST, LUNCH, AND DINNER) gabapentin (NEURONTIN) 300 mg capsule TAKE 1 CAPSULE AT DINNER AND 2 CAPSULE 30-60 minutes before BEDTIME sertraline (ZOLOFT) 25 mg tablet Take 1 tablet by mouth once daily. losartan (COZAAR) 25 mg tablet Take 1 tablet by mouth once daily. (Patient taking differently: Take 50 mg by mouth once daily.) amLODIPine (NORVASC) 2.5 mg tablet Take 1 tablet by mouth once daily. omeprazole (PRILOSEC) 20 mg capsule Take 1 capsule by mouth daily before breakfast. 1/2 hr before meal. metoprolol succinate ER (TOPROL XL) 25 mg 24 hr tablet Take 1 tablet by mouth once daily. pravastatin (PRAVACHOL) 40 mg tablet Take 1 tablet by mouth once daily. metFORMIN (GLUCOPHAGE) 1,000 mg tablet Take 1 tablet by mouth twice daily with meals. Blood-Glucose Meter monitoring kit Glucose Meter of Choice - Kit - Dx: Type 2 DM - Controlled E11.9 blood sugar diagnostic (BLOOD GLUCOSE TEST) test strip Test blood sugar(s) 1 times daily. Dx: Type 2 DM - Controlled E11.9 Insulin: No Lancets lancets Test blood sugar(s) 1 times daily. Dx: Type 2 DM - Controlled E11.9 Insulin: No CPAP Heating tubing CPAP Please provide download. Please evaluate PAP device for faulty humidifier. CPAP Initiate Auto PAP @ 5-20 cm of water with humidification. Mask (per patient preference) optional chin strap (if indicated) , filters, tubing, humidifier and lifetime supplies. aspirin 81 mg chewable tablet Take 2 tablets by mouth once daily. Current Facility-Administered Medications Medication Dose Route Frequency leuprolide (6 month) 45 mg IM syringe kit (LUPRON) 45 mg INTRAMUSCULAR Q 6 MONTH ALLERGIES: ALLERGIES Allergen Reactions Lipitor [Atorvastat* Rash, Itching Codeine Rash PAST MEDICAL HISTORY Diagnosis Date Bladder cancer ([facility]) 2010 CAD S/P percutaneous coronary angioplasty 06/1999 x 5 stents, atherectomy 2013, PCI to LAD 1999 and RCA 2000 DM (diabetes mellitus) ([facility]) type 2 HTN (hypertension) Hyperlipidemia PAD (peripheral artery disease) ([facility]) 2014 s/p stent right SFA Penile cancer ([facility]) 04/08/2010 Prostate cancer ([facility]) 2006 s/p radical robotic prostatectomy [place] PAST SURGICAL HISTORY Procedure Laterality Date BIOPSY PENIS SEPARATE PROCEDURE 2010 CABG (3) VEIN GRAFTS & ARTERIAL GRAFT(S) 06/2016 COLONOSCOPY FLX DX W/COLLJ SPEC WHEN PFRMD 10/27/2016 Normal colonoscopy-10 year follow-up CYSTOSCOPY,URETEROSC,BIOPSY ESOPHAGOGASTRODUODENOSCOPY TRANSORAL DIAGNOSTIC 09/21/2017 EGD HEART SURGERY HX LAPAROSCOPIC RADICAL PROSTATECTOMY 2006 PAST SURGICAL HISTORY OF 2010 x 5 heart stents PAST SURGICAL HISTORY OF Right 2014 right lower extremity stent for PAD PAST SURGICAL HISTORY OF 07/16/2016 bypass surgery at [facility] FAMILY HISTORY Problem Relation Age of Onset Heart Mother Heart Father Aneurysm Father Stroke Father other (knee problems) Sister Heart Brother Stroke Brother Stroke Brother No Known Problems Brother No Known Problems Son No Known Problems Daughter Social History Tobacco Use Smoking status: Former Packs/day: 0.50 Years: 30.00 Pack years: 15.00 Types: Cigarettes Quit date: 04/13/2004 Years since quittin.2 Smokeless tobacco: Never Vaping Use Vaping Use: Never used Substance Use Topics Alcohol use: Yes Comment: [facility] Drug use: No Reviewed current medications, allergies, past medical history, surgical history, family history and social history today. REVIEW OF SYSTEMS No issues with urine or bowels or appetite. All other reviewed and negative other than HPI. HEALTH MAINTENANCE: Reviewed health maintenance issues today and recommended the following in detail. SHINGRIX VACCINE(1 of 2) Never done DTAP,TDAP,TD(1 - Tdap) due on 12/24/1998 ADVANCE DIRECTIVE DISCUSSION due on 03/29/2022 DEPRESSION ASSESSMENT Never done HBA1C due on 07/14/2022 VITALS: BP 136/60 Pulse (!) 50 Ht 177.8 cm (5' 10 ) Wt 94.9 kg (209 lb 3.2 oz) SpO2 98% BMI 30.02 kg/m Last 4 Encounter Wt Readings: Date: Wt: 06/29/2022 92.4 kg (203 lb 9.6 oz) 01/13/2022 94.8 kg (209 lb) 09/08/2021 94.3 kg (208 lb) 07/09/2021 97.5 kg (215 lb) PHYSICAL EXAMINATION: General appearance: Well appearing, alert, in no acute distress, well-hydrated, well nourished. Skin: Skin color, texture, turgor normal, no suspicious rashes or lesions Head: Normocephalic, no masses, lesions, tenderness or abnormalities Eyes: Anicteric sclera. Pupils are equally round and reactive to light. Extraocular movements are intact. Lungs: Lungs clear to auscultation. No wheezing, rhonchi, rales Heart: RRR without murmur, gallop, or rubs. No ectopy Abdomen: Normal abdominal exam, Abdomen soft, non-tender. Bowel sounds normal. No masses, organomegaly Extremities: No deformities, edema, skin discoloration, clubbing or cyanosis. Good capillary refill. Musculoskeletal: No joint swelling, deformity, or tenderness ASSESSMENT/PLAN: 1. Diabetic polyneuropathy associated with type 2 diabetes mellitus (HCC) - ICD9: 250.60, 357.2, ICD10: E11.42 (primary diagnosis) - check la bs. 2. 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 Malignant neoplasm of overlapping sites of bladder (HCC) - ICD9: 188.8, ICD10: C67.8 - has not followed with urology. Again recommended. 4. 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 5. RLS (restless legs syndrome) - ICD9: 333.94, ICD10: G25.81 - per neuro 6. Parkinson disease (HCC) - ICD9: 332.0, ICD10: G20 - per neuro 7. PAD (peripheral artery disease) (HCC) - ICD9: 443.9, ICD10: I73.9 - stable. 8. Primary hypertension - ICD9: 401.9, ICD10: I10 - good control - BASIC METABOLIC PNL - CBC + DIFF 9. Atherosclerosis of kashia coronary artery with unstable angina pectoris, unspecified whether kashia or transplanted heart (HCC) - ICD9: 414.01, 411.1, ICD10: I25.110 - as above. 10. Diabetes mellitus with microalbuminuria (HCC) - ICD9: 250.40, 791.0, ICD10: E11.29, R80.9 - stable 11. Malignant neoplasm of prostate (HCC) - ICD9: 185, ICD10: C61 - check labs. 12. Screening for prostate cancer - ICD9: V76.44, ICD10: Z12.5 - Counseled on healthy diet and regular exercise - PSA/PROSTSPECAG SCRN Eliceo Drummond MD RTO in six months. documented in this encounter [facility] 06-29-2022 Note HNO ID: [id number] Author: Eliceo Khan Jr., MD Service: ? Author Type: Physician Type: Progress Notes Filed: 06/29/2022 11:29 PM Note Text: ESTABLISHED PATIENT VISIT CHIEF COMPLAINT: Follow Up HISTORY OF PRESENT ILLNESS: Rm Chau is a 81 year old male, BMI 29.21 kg/m2 with a PMH significant for and per last office visit of 03/09/22: 1. Parkinson's disease (HCC) - ICD9: 332.0, ICD10: G20 (primary diagnosis) Progressing since last visit. Possibly exacerbated by lack of activity. Encouraged exercise and will place order for PT/OT. Will also attempt to increase Sinemet 25/100mg dose to 1.5 tabs TID with meals. SE and ADRs d/w pt and his family. Will continue Sinemet CR dose at night as Rx'd above. 2. Diabetic polyneuropathy associated with type 2 diabetes mellitus (HCC) - ICD9: 250.60, 357.2, ICD10: E11.42 No new complaints today. Stable on gabapentin. Will continue to monitor. Hemoglobin A1C (%) Date Value 01/13/2022 6.8 01/24/2021 6.7 3. RLS (restless legs syndrome) - ICD9: 333.94, ICD10: G25.81 Possibly worse, but difficult to determine if symptoms worsening or pt just less active. As already increasing Sinemet as above and as to want to avoid confusion over which med is causing side effect, will make no changes to gabapentin dosing today and continue on 300mg Qdinner and QHS. 4. PIEDAD (obstructive sleep apnea) - ICD9: 327.23, ICD10: G47.33 Encouraged pap compliance. When using AHI controlled (<2) and pressure typically <13 cmH2O. Patient will try to continue to use nightly but now up to and over 4 hours. Reviewed with pt and family those med conditions possible exacerbated by untreated PIEDAD. Reminded to clean and replace equipment regularly. Pt NOT driving. PAP data download for past 90 days shows 95% pressure of 13.2 cmH2O. 95% leak of 4.3 LPM. Residual AHI of 1.5. Pt did not use PAP for a few days due to a humidifier leak. Pt feels he is doing well with PAP. Currently he is taking Sinemet 2 tabs (25/100mg) TID on his own. However, he was advised to only increase to 1.5 tabs TID. States RLS is worse since increasing Sinemet. RLS worse at night when tries to get to sleep Then states last night did not bother him at all. Then states he is waking and taking extra Sinemet at night on his own. He is also continuing to take gabapentin 300mg 1 at dinner and 1 at bedtime. Feels like his legs are jumping. When asked about physical therapy, states went last today and they did not release him. Currently going twice per week and feels it is helping. No falls at home, but then family states he had a fall about 1 month ago. States got up to use bathroom, lost balance, fell backwards, and hit head on coffee table. No imaging or ER evaluation at that time. Pt feels balance is his greatest issues. Also some difficulties with utensils, but he does not feel due to PD. Not taking naps or sleeping during the day, but then states sometimes but not for long. Not doing therapy when not at PT. No loss of smell. Does cough with water. REVIEW OF SYSTEMS GENERAL:No weight loss, malaise or fevers. HEENT:Negative for frequent or significant headaches, No changes in hearing or vision, no nose bleeds or other nasal problems NECK:Negative for lumps, goiter, pain and significant neck swelling RESPIRATORY: Negative for cough, wheezing or shortness of breath. CARDIOVASCULAR: Negative for chest pain, leg swelling or palpitations. GASTROINTESTINAL: Negative for abdominal discomfort, blood in stools or black stools or change in bowel habits GENITOURINARY: No history of dysuria, frequency or incontinence MUSCULOSKELETAL: Negative for joint pain or swelling, back pain or muscle pain. NEUROLOGIC:Negative for focal numbness or weakness, headaches and dizziness or syncope, vision changes, speech/languag changes - EXCEPT that as per HPI above. SKIN:Negative for lesions, rash, and itching. PSYCHIATRIC: Negative for sleep disturbance, mood disorder and recent psychosocial stressors. HEMATOLOGIC/LYMPHATIC/IMMUNOLOGI C:Negative for prolonged bleeding, bruising easily or swollen nodes. ENDOCRINE: Negative for cold or heat intolerance, polyuria, polydipsia and goiter. The remainder of the ROS was reviewed and is negative. LAB/IMAGING: Those performed since patient's last visit have been reviewed. WBC (k/uL) Date Value 01/13/2022 8.98 RBC (m/uL) Date Value 01/13/2022 4.54 Hemoglobin (g/dL) Date Value 01/13/2022 12.4 (L) Hematocrit (%) Date Value 01/13/2022 39.2 MCV (fL) Date Value 01/13/2022 86.3 MCH (pg) Date Value 01/13/2022 27.3 MCHC (g/dL) Date Value 01/13/2022 31.6 RDW-CV (%) Date Value 01/13/2022 12.8 Platelet Count (k/uL) Date Value 01/13/2022 274 MPV (fL) Date Value 01/13/2022 10.8 Glucose (mg/dL) Date Value 01/13/2022 113 (H) BUN (mg/dL) Date Value 01/13/2022 17 Creatinine (mg/dL) Date Value 01/13/2022 0.91 [place] (more content not included)... [facility] 06-29-2022 History of Presen t illness Narrative ESTABLISHED PATIENT VISIT CHIEF COMPLAINT: Follow Up HISTORY OF PRESENT ILLNESS: Rm Chau is a 81 year old male, BMI 29.21 kg/m2 with a PMH significant for and per last office visit of 03/09/22: 1. Parkinson's disease (HCC) - ICD9: 332.0, ICD10: G20 (primary diagnosis) Progressing since last visit. Possibly exacerbated by lack of activity. Encouraged exercise and will place order for PT/OT. Will also attempt to increase Sinemet 25/100mg dose to 1.5 tabs TID with meals. SE and ADRs d/w pt and his family. Will continue Sinemet CR dose at night as Rx'd above. 2. Diabetic polyneuropathy associated with type 2 diabetes mellitus (HCC) - ICD9: 250.60, 357.2, ICD10: E11.42 No new complaints today. Stable on gabapentin. Will continue to monitor. Hemoglobin A1C (%) Date Value 01/13/2022 6.8 01/24/2021 6.7 3. RLS (restless legs syndrome) - ICD9: 333.94, ICD10: G25.81 Possibly worse, but difficult to determine if symptoms worsening or pt just less active. As already increasing Sinemet as above and as to want to avoid confusion over which med is causing side effect, will make no changes to gabapentin dosing today and continue on 300mg Qdinner and QHS. 4. PIEDAD (obstructive sleep apnea) - ICD9: 327.23, ICD10: G47.33 Encouraged pap compliance. When using AHI controlled (<2) and pressure typically <13 cmH2O. Patient will try to continue to use nightly but now up to and over 4 hours. Reviewed with pt and family those med conditions possible exacerbated by untreated PIEDAD. Reminded to clean and replace equipment regularly. Pt NOT driving. PAP data download for past 90 days shows 95% pressure of 13.2 cmH2O. 95% leak of 4.3 LPM. Residual AHI of 1.5. Pt did not use PAP for a few days due to a humidifier leak. Pt feels he is doing well with PAP. Currently he is taking Sinemet 2 tabs (25/100mg) TID on his own. However, he was advised to only increase to 1.5 tabs TID. States RLS is worse since increasing Sinemet. RLS worse at night when tries to get to sleep Then states last night did not bother him at all. Then states he is waking and taking extra Sinemet at night on his own. He is also continuing to take gabapentin 300mg 1 at dinner and 1 at bedtime. Feels like his legs are jumping. When asked about physical therapy, states went last today and they did not release him. Currently going twice per week and feels it is helping. No falls at home, but then family states he had a fall about 1 month ago. States got up to use bathroom, lost balance, fell backwards, and hit head on coffee table. No imaging or ER evaluation at that time. Pt feels balance is his greatest issues. Also some difficulties with utensils, but he does not feel due to PD. Not taking naps or sleeping during the day, but then states sometimes but not for long. Not doing therapy when not at PT. No loss of smell. Does cough with water. REVIEW OF SYSTEMS GENERAL:No weight loss, malaise or fevers. HEENT:Negative for frequent or significant headaches, No changes in hearing or vision, no nose bleeds or other nasal problems NECK:Negative for lumps, goiter, pain and significant neck swelling RESPIRATORY: Negative for cough, wheezing or shortness of breath. CARDIOVASCULAR: Negative for chest pain, leg swelling or palpitations. GASTROINTESTINAL: Negative for abdominal discomfort, blood in stools or black stools or change in bowel habits GENITOURINARY: No history of dysuria, frequency or incontinence MUSCULOSKELETAL: Negative for joint pain or swelling, back pain or muscle pain. NEUROLOGIC:Negative for focal numbness or weakness, headaches and dizziness or syncope, vision changes, speech/languag changes - EXCEPT that as per HPI above. SKIN:Negative for lesions, rash, and itching. PSYCHIATRIC: Negative for sleep disturbance, mood disorder and recent psychosocial stressors. HEMATOLOGIC/LYMPHATIC/IMMUNOLOGI C:Negative for prolonged bleeding, bruising easily or swollen nodes. ENDOCRINE: Negative for cold or heat intolerance, polyuria, polydipsia and goiter. The remainder of the ROS was reviewed and is negative. LAB/IMAGING: Those performed since patient's last visit have been reviewed. WBC (k/uL) Date Value 01/13/2022 8.98 RBC (m/uL) Date Value 01/13/2022 4.54 Hemoglobin (g/dL) Date Value 01/13/2022 12.4 (L) Hematocrit (%) Date Value 01/13/2022 39.2 MCV (fL) Date Value 01/13/2022 86.3 MCH (pg) Date Value 01/13/2022 27.3 MCHC (g/dL) Date Value 01/13/2022 31.6 RDW-CV (%) Date Value 01/13/2022 12.8 Platelet Count (k/uL) Date Value 01/13/2022 274 MPV (fL) Date Value 01/13/2022 10.8 Glucose (mg/dL) Date Value 01/13/2022 113 (H) BUN (mg/dL) Date Value 01/13/2022 17 Creatinine (mg/dL) Date Value 01/13/2022 0.91 Sodium (mmol/L) Date Value 01/13/2022 137 Potassium (mmol/L) Date Value 01/13/2022 4.5 Chloride (mmol/L) Date Value 01/13/2022 97 CO2 (mmol/L) Date Value 01/13/2022 28 Protein, Total (g/dL) Date Value 01/13/2022 7.3 Albumin (g/dL) Date Value 01/13/2022 4.5 Calcium, Total (mg/dL) Date Value 01/13/2022 10.1 Alkaline Phosphatase (U/L) Date Value 01/13/2022 68 Bilirubin, Total (mg/dL) Date Value 01/13/2022 0.3 AST (U/L) Date Value 01/13/2022 24 ALT (U/L) Date Value 01/13/2022 13 URINALYSIS pH, Arterial Date Value Ref Range Status 07/23/2016 7.40 7.35 - 7.45 Final Specific [place], Ur Date Value Ref Range Status 08/23/2020 1.010 1.005 - 1.030 Final Glucose, Urine Date Value Ref Range Status 08/23/2020 Negative Negative mg/dL Final Bilirubin, Urine Date Value Ref Range Status 08/23/2020 Negative Negative Final Ketones, Urine Date Value Ref Range Status 08/23/2020 Negative Negative Final Hemoglobin/Blood,Ur Date Value Ref Range Status 08/23/2020 Negative Negative Final Protein, Urine Date Value Ref Range Status 08/23/2020 Negative Negative Final Urobilinogen, Urine Date Value Ref Range Status 03/19/2017 normal Normal (<1.1) EU Final WBC, Urine Date Value Ref Range Status 08/23/2020 0-5 0 - 5 /HPF Final MEDICATIONS: sertraline (ZOLOFT) 25 mg tablet^Take 1 tablet by mouth once daily.^Disp: 90 tablet^Rfl: 3 carbidopa-levodopa (SINEMET 25-100) 25-100 mg per tablet^TAKE 1.5 TABLET 3 TIMES A DAY(TAKE AT BREAKFAST, LUNCH, AND DINNER)^Disp: 270 tablet^Rfl: 1 losartan (COZAAR) 25 mg tablet^Take 1 tablet by mouth once daily.^Disp: 90 tablet^Rfl: 3 (Patient taking differently: Take 50 mg by mouth once daily.) amLODIPine (NORVASC) 2.5 mg tablet^Take 1 tablet by mouth once daily.^Disp: 90 tablet^Rfl: 3 omeprazole (PRILOSEC) 20 mg capsule^Take 1 capsule by mouth daily before breakfast. 1/2 hr before meal.^Disp: 90 capsule^Rfl: 3 metoprolol succinate ER (TOPROL XL) 25 mg 24 hr tablet^Take 1 tablet by mouth once daily.^Disp: 90 tablet^Rfl: 3 pravastatin (PRAVACHOL) 40 mg tablet^Take 1 tablet by mouth once daily.^Disp: 90 tablet^Rfl: 3 metFORMIN (GLUCOPHAGE) 1,000 mg tablet^Take 1 tablet by mouth twice daily with meals.^Disp: 180 tablet^Rfl: 3 CPAP^Heating tubing^Disp: 1 Each^Rfl: 99 CPAP^Please provide download. Please evaluate PAP device for faulty humidifier.^Disp: 1 Device^Rfl: 99 CPAP^Initiate Auto PAP @ 5-20 cm of water with humidification. Mask (per patient preference) optional chin strap (if indicated) , filters, tubing, humidifier and lifetime supplies.^Disp: 1 Device^Rfl: 0 aspirin 81 mg chewable tablet^Take 2 tablets by mouth once daily.^Disp: 100 tablet^Rfl: 2 triamcinolone acetonide (KENALOG) 0.1 % cream^Apply to affected area once daily.^Disp: 80 g^Rfl: 2 (Patient not taking: Reported on 06/29/2022) carbidopa-levodopa CR (SINEMET CR) 50-200 mg per tablet^Take 1 tablet 1 hour before bedtime.^Disp: 270 tablet^Rfl: 1 gabapentin (NEURONTIN) 300 mg capsule^TAKE 1 CAPSULE AT DINNER AND 1 CAPSULE AT BEDTIME^Disp: 180 capsule^Rfl: 1 Blood-Glucose Meter monitoring kit^Glucose Meter of Choice - Kit - Dx: Type 2 DM - Controlled E11.9^Disp: 1 Each^Rfl: 0 blood sugar diagnostic (BLOOD GLUCOSE TEST) test strip^Test blood sugar(s) 1 times daily. Dx: Type 2 DM - Controlled E11.9 Insulin: No^Disp: 100 Strip^Rfl: 11 Lancets lancets^Test blood sugar(s) 1 times daily. Dx: Type 2 DM - Controlled E11.9 Insulin: No^Disp: 100 Each^Rfl: 11 HISTORIES PAST MEDICAL HISTORY Diagnosis Date Bladder cancer (HCC) 2010 CAD S/P percutaneous coronary angioplasty 06/1999 x 5 stents, atherectomy 2013, PCI to LAD 1999 and RCA 2000 DM (diabetes mellitus) ([facility]) type 2 HTN (hypertension) Hyperlipidemia PAD (peripheral artery disease) ([facility]) 2014 s/p stent right SFA Penile cancer (HCC) 04/08/2010 Prostate cancer ([facility]) 2006 s/p radical robotic prostatectomy [place] FAMILY HISTORY Problem Relation Age of Onset Heart Mother Heart Father Aneurysm Father Stroke Father other (knee problems) Sister Heart Brother Stroke Brother Stroke Brother No Known Problems Brother No Known Problems Son No Known Problems Daughter SOCIAL HISTORY Social History Tobacco Use Smoking status: Former Packs/day: 0.50 Years: 30.00 Pack years: 15.00 Types: Cigarettes Quit date: 04/13/2004 Years since quittin.2 Smokeless tobacco: Never Vaping Use Vaping Use: Never used Substance Use Topics Alcohol use: Yes Comment: occs Drug use: No PHYSICAL EXAMINATION BP 157/77 Pulse 68 Temp 36.2 C (97.2 F) Resp 16 Wt 92.4 kg (203 lb 9.6 oz) SpO2 95% BMI 29.21 kg/m GENERAL EXAM: General appearance: NAD, flat affect. HEENT: NC/AT, nasal congestion absent, no oral lesions, membranes moist. NECK: ROM nml. Lungs: CTA bilaterally. CV: RRR nl S1, S2, Skin: Cool to touch. NEUROLOGICAL EXAM: General: Awake, alert, oriented x3 (person,place,time), speech fluent, no dysarthria; comprehension, naming, repetition intact. CN: PERRL, EOMI and without nystagmus, VFF to confrontation, facial sensation and strength are normal and symmetric, hearing is intact to finger rub bilaterally, palate and tongue movements are intact and symmetric. SCM and trapezius strength normal. Motor: Increased tone in LUE>RUE, bulk and strength (5/5) bilaterally (throughout extremities x4). Coordination: FNF, SHERITA, HTS intact. No tremors. Sensation: Light touch intact throughout. No evidence of neglect. Gait: Narrow based and needing walker for stability. Turns take ~5-6 steps (180 degrees). Minimal retropulsion on pull testing. Unable to rise from chair without assist of upper exts. Assessment and Plan: ASSESSMENT/PLAN: 1. Parkinson's disease (HCC) - ICD9: 332.0, ICD10: G20 (primary diagnosis) 2. Dysphagia, unspecified type - ICD9: 787.20, ICD10: R13.10 3. Abnormality of gait - ICD9: 781.2, ICD10: R26.9 PD on exam stable. However, patient has increased meds as reported above, without our direction. This includes taking multiple sinemet tabs at bedtime. I will continue on 25/100mg 2 tabs TID with meals as he appears to be tolerating. He will continue Sinemet CR 50/200 at bedtime. I have also encouraged him to continue with PT but also try to exercise on own with pt having access to Nustep at his facility. They will get him a new pill box and advised pt only take what is Rx'd. As for dysphagia, will make referral to speech therapy for further evaluation. 4. Diabetic polyneuropathy associated with type 2 diabetes mellitus (HCC) - ICD9: 250.60, 357.2, ICD10: E11.42 5. RLS (restless legs syndrome) - ICD9: 333.94, ICD10: G25.81 While neuropathy stable, I am concerned that subjective complaints of worsening RLS in fact due to augmentation with pt taking larger amounts of Sinemet then Rx'd. Will have pt reduce dosing to Sinemet as above. For further control of RLS, will continue Gabapentin 300mg at dinner but increase dose prior to bedtime to 600mg. SE and ADRs d/w pt. Appropriate dosing per renal function. 6. PIEDAD (obstructive sleep apnea) - ICD9: 327.23, ICD10: G47.33 Doing well subjectively and objectively. Encouraged pt to continue to remain complaint with PAP. Reminded pt to clean and replace equipment regularly. Pt does not drive. Follow up 2-3 months with KAY[facility]. Eliceo Khan MD I spent a total of 40+ minutes on the date of the service which included preparing to see the patient, [id number] patient care, completing clinical documentation, obtaining and/or reviewing separately obtained history, performing a medically appropriate examination, counseling and educating the patient/family/caregiver, ordering medications, tests, or procedures, independently interpreting results (not separately reported), and communicating results to the patient/family/caregiver. PDMP website checked and validated. All prescriptions have been APPROPRIATELY filled. No suspicious activity was identified. 06/29/2022 by Eliceo Khan MD documented in this encounter [facility] 06-24-2022 Miscellaneous Notes Completed and faxed. Type of form: Physical Therapy Orders Form received via fax When form is completed, Fax form to [phone] Form has been forwarded to Physician Mailbox: Dr. Lm Turner LPN documented in this encounter [facility] 06-18-2022 Note HNO ID: [id number] Author: Marcos Juarez Service: ? Author Type: Physician Type: Progress Notes Filed: 06/18/2022 1:22 PM Note Text: Last saw Dr. Drummond: 01/22/22 Subjective: Patient presents to clinic c/o painful toenails. They state that the nails are especially painful with shoe gear and pressure. Patient states that nails 1-5 b/l are painful. Patient admits to being diabetic. No other pedal complaints at this time. Patient states no change in medications or medical history since last visit. Objective: Patient presents to clinic ambulating in sandals Vasc: DP and PT pulses are palpable bilateral. CFT is less than 5 seconds bilateral. Skin temperature is warm to cool proximal to distal bilateral. There is mild edema or varicosities noted. Neuro: Protective sensation is intact to the foot and toes when tested with the 5.07 SWM bilateral. Vibratory sensation is decreased at the hallux IPJ bilateral. The hallux is downgoing bilateral. Derm: Nails 1-5 b/l are painful, discolored-yellow, thick, crumbly, dystrophic and with subungal debris. Skin is of normal turgor, texture and hair growth is absent bilateral. There are no hyperkeratosis or ulceration. Rash is noted to b/l legs and dorsal foot Ortho: Muscle strength is 5/5 for all pedal groups tested. Ankle joint DF is decreased with the knee extended with no pain or crepitus noted. 1st MPJ ROM is decreased bilateral. Assessment: (B35.1) Onychomycosis (primary encounter diagnosis) (M79.675) Pain in toe of left foot (M79.674) Pain in toe of right foot (E11.9, Z79.4) Controlled type 2 diabetes mellitus without complication, with long-term current use of insulin (HCC) (L30.9) Dermatitis Plan: Patient was seen and evaluated. Nails 1-5 bilateral were debrided in length and thickness. Patient was instructed on the continued importance of diabetic foot care along with proper diet and keeping their blood sugar under control to prevent complications. Discused rash of b/l feet and legs. Will try steroid cream. If rash fails to improve in 1 -2 weeks, make appointment with derm. Patient is to RTC in 3-4 months. Marcos Juarez DPM [facility] 06-18-2022 Note HNO ID: [id number] Author: Anna Calles LPN Service: ? Author Type: LICENSED NURSE Type: Progress Notes Filed: 06/18/2022 1:22 PM Note Text: AMB ROOMING INTAKE FLOWSHEET DATA Patient presents with: Left Foot - Established Patient, Follow Up, Diabetic Foot Care Right Foot - Established Patient, Follow Up, Diabetic Foot Care Anna Calles LPN [facility] 06-18-2022 History of Presen t illness Narrative Last saw Dr. Drummond: 01/22/22 Subjective: Patient presents to clinic c/o painful toenails. They state that the nails are especially painful with shoe gear and pressure. Patient states that nails 1-5 b/l are painful. Patient admits to being diabetic. No other pedal complaints at this time. Patient states no change in medications or medical history since last visit. Objective: Patient presents to clinic ambulating in sandals Vasc: DP and PT pulses are palpable bilateral. CFT is less than 5 seconds bilateral. Skin temperature is warm to cool proximal to distal bilateral. There is mild edema or varicosities noted. Neuro: Protective sensation is intact to the foot and toes when tested with the 5.07 SWM bilateral. Vibratory sensation is decreased at the hallux IPJ bilateral. The hallux is downgoing bilateral. Derm: Nails 1-5 b/l are painful, discolored-yellow, thick, crumbly, dystrophic and with subungal debris. Skin is of normal turgor, texture and hair growth is absent bilateral. There are no hyperkeratosis or ulceration. Rash is noted to b/l legs and dorsal foot Ortho: Muscle strength is 5/5 for all pedal groups tested. Ankle joint DF is decreased with the knee extended with no pain or crepitus noted. 1st MPJ ROM is decreased bilateral. Assessment: (B35.1) Onychomycosis (primary encounter diagnosis) (M79.675) Pain in toe of left foot (M79.674) Pain in toe of right foot (E11.9, Z79.4) Controlled type 2 diabetes mellitus without complication, with long-term current use of insulin (HCC) (L30.9) Dermatitis Plan: Patient was seen and evaluated. Nails 1-5 bilateral were debrided in length and thickness. Patient was instructed on the continued importance of diabetic foot care along with proper diet and keeping their blood sugar under control to prevent complications. Discused rash of b/l feet and legs. Will try steroid cream. If rash fails to improve in 1 -2 weeks, make appointment with derm. Patient is to RTC in 3-4 months. Marcos Juarez DPM AMB ROOMING INTAKE FLOWSHEET DATA Patient presents with: Left Foot - Established Patient, Follow Up, Diabetic Foot Care Right Foot - Established Patient, Follow Up, Diabetic Foot Care Anna Calles LPN documented in this encounter [facility] 06-18-2022 Instructions Marcos Juarez - 06/18/2022 1:09 PM EDT Diabetes Foot Care Instructions When you have diabetes, proper foot care is very important. Poor foot care may lead to amputation of a foot or leg. As a person with diabetes, you are more vulnerable to foot problems, because diabetes can damage your nerves and reduce blood flow to your feet. Here are some diabetes foot care tips to follow: Wash and Dry Your Feet Daily Use mild soaps Use warm water Pat your skin dry; do not rub. Thoroughly dry your feet. After washing, use lotion on your feet to prevent cracking. Do not put lotion between your toes. Examine Your Feet Each Day Check the tops and bottoms of your feet. Have someone else look at your feet if you cannot see them. Check for dry, cracked skin. Look for blisters, cuts, scratches, or other sores. Check for redness, increased warmth, or tenderness when touching any area of your feet. Check for ingrown toenails, corns, and calluses. If you get a blister or sore from your shoes, do not pop it. Apply a bandage and wear a different pair of shoes. Take Care of Your Toenails Cut toenails after bathing, when they are soft. Cut toenails straight across and smooth with a nail file. Avoid cutting into the corners of toes. Do not cut cuticles. If you have neuropathy (or decreased sensation in your feet) a storage engineer should always cut your toenails. Be Careful When Exercising Walk and exercise in comfortable shoes. Do not exercise when you have open sores on your feet. Protect Your Feet With Shoes and Socks Never go barefoot. Always protect your feet by wearing shoes or hard-soled slippers or footwear. Avoid shoes with high heels and pointed toes. Avoid shoes that expose your toes or heels (such as open-toed shoes or sandals). These types of shoes increase your risk for injury and potential infections. Try on new footwear with the type of socks you usually wear. Do not wear new shoes for more than an hour at a time. Change your socks daily. Look and feel inside your shoes before putting them on to make sure there are no foreign objects or rough areas. Avoid tight socks. Wear natural-fiber socks (cotton, wool, or a cotton-wool blend). Wear special shoes if your health care provider recommends them. Wear shoes/boots that will protect your feet from various weather conditions (cold, moisture, etc.). Make sure your shoes fit properly. If you have neuropathy (nerve damage), you may not notice that your shoes are too tight. Perform the footwear test described below. Footwear Test Use this simple test to see if your shoes fit correctly: Stand on a piece of paper. (Make sure you are standing and not sitting, because your foot changes shape when you stand.) Trace the outline of your foot. Trace the outline of your shoe. Compare the tracings: Is the shoe too narrow? Is your foot crammed into the shoe? The shoe should be at least 1/2 inch longer than your longest toe and as wide as your foot. Proper Shoe Choices The following types of shoes are best for people with diabetes Closed toes and heels Leather uppers without a seam inside At least 1/2 inch extra space at the end of your longest toe Inside of shoe should be soft with no rough areas Outer sole should be made of stiff material Shoes should be at least as wide as your feet Tips for Foot Care in Diabetes Don't wait to treat a minor foot problem if you have diabetes. Follow your health care provider's guidelines and first aid guidelines. Report foot injuries and infections to your health care provider immediately. Check water temperature with your elbow, not your foot. Do not use a heating pad on your feet. Do not cross your legs. Do not self-treat your corns, calluses, or other foot problems. Go to your health care provider or storage engineer to treat these conditions. Steroid cream ordered for legs and foot. If rash fails to improve in 1-2 weeks, consider derm referral documented in this encounter [facility] 06-01-2022 Miscellaneous Notes Faxed. Sridevi Katz ok Received orders for PT Eval and Tx from [facility] for recent weakness, balance issues and fall. Needs faxed to [phone] Sridevi Katz documented in this encounter [facility] 03-19-2022 History of Presen t illness Narrative Last saw Dr. Drummond: 01/13/22 Subjective: Patient presents to clinic c/o painful toenails. They state that the nails are especially painful with shoe gear and pressure. Patient states that nails 1-5 b/l are painful. Patient admits to being diabetic. No other pedal complaints at this time. Patient states no change in medications or medical history since last visit. Objective: Patient presents to clinic ambulating in [facility] Vasc: DP and PT pulses are palpable bilateral. CFT is less than 5 seconds bilateral. Skin temperature is warm to cool proximal to distal bilateral. There is mild edema or varicosities noted. Neuro: Protective sensation is decreased to the foot and toes when tested with the 5.07 SWM bilateral. Vibratory sensation is absent at the hallux IPJ bilateral. The hallux is downgoing bilateral. Derm: Nails 1-5 b/l are painful, discolored-yellow, thick, crumbly, dystrophic and with subungal debris. Skin is of normal turgor, texture and hair growth is present bilateral. There are no hyperkeratosis, ulcerations, scars, verruca or other lesions noted. Ortho: Muscle strength is 5/5 for all pedal groups tested. Ankle joint DF is full with the knee extended with no pain or crepitus noted. 1st MPJ ROM is decreased bilateral. Assessment: (B35.1) Onychomycosis (primary encounter diagnosis) (M79.675) Pain in toe of left foot (M79.674) Pain in toe of right foot (E11.9, Z79.4) Controlled type 2 diabetes mellitus without complication, with long-term current use of insulin ([facility]) Plan: Patient was seen and evaluated. Nails 1-5 bilateral were debrided in length and thickness. Patient was instructed on the continued importance of diabetic foot care along with proper diet and keeping their blood sugar under control to prevent complications. Patient is to RTC in 3-4 months. Marcos Juarez DPM Patient presents with: Left Foot - Established Patient, Follow Up, nail care Right Foot - Established Patient, Follow Up, nail care documented in this encounter [facility] 03-19-2022 Instructions Marcos Mir 03/19/2022 1:38 PM EST Diabetes Foot Care Instructions When you have diabetes, proper foot care is very important. Poor foot care may lead to amputation of a foot or leg. As a person with diabetes, you are more vulnerable to foot problems, because diabetes can damage your nerves and reduce blood flow to your feet. Here are some diabetes foot care tips to follow: Wash and Dry Your Feet Daily Use mild soaps Use warm water Pat your skin dry; do not rub. Thoroughly dry your feet. After washing, use lotion on your feet to prevent cracking. Do not put lotion between your toes. Examine Your Feet Each Day Check the tops and bottoms of your feet. Have someone else look at your feet if you cannot see them. Check for dry, cracked skin. Look for blisters, cuts, scratches, or other sores. Check for redness, increased warmth, or tenderness when touching any area of your feet. Check for ingrown toenails, corns, and calluses. If you get a blister or sore from your shoes, do not pop it. Apply a bandage and wear a different pair of shoes. Take Care of Your Toenails Cut toenails after bathing, when they are soft. Cut toenails straight across and smooth with a nail file. Avoid cutting into the corners of toes. Do not cut cuticles. If you have neuropathy (or decreased sensation in your feet) a storage engineer should always cut your toenails. Be Careful When Exercising Walk and exercise in comfortable shoes. Do not exercise when you have open sores on your feet. Protect Your Feet With Shoes and Socks Never go barefoot. Always protect your feet by wearing shoes or hard-soled slippers or footwear. Avoid shoes with high heels and pointed toes. Avoid shoes that expose your toes or heels (such as open-toed shoes or sandals). These types of shoes increase your risk for injury and potential infections. Try on new footwear with the type of socks you usually wear. Do not wear new shoes for more than an hour at a time. Change your socks daily. Look and feel inside your shoes before putting them on to make sure there are no foreign objects or rough areas. Avoid tight socks. Wear natural-fiber socks (cotton, wool, or a cotton-wool blend). Wear special shoes if your health care provider recommends them. Wear shoes/boots that will protect your feet from various weather conditions (cold, moisture, etc.). Make sure your shoes fit properly. If you have neuropathy (nerve damage), you may not notice that your shoes are too tight. Perform the footwear test described below. Footwear Test Use this simple test to see if your shoes fit correctly: Stand on a piece of paper. (Make sure you are standing and not sitting, because your foot changes shape when you stand.) Trace the outline of your foot. Trace the outline of your shoe. Compare the tracings: Is the shoe too narrow? Is your foot crammed into the shoe? The shoe should be at least 1/2 inch longer than your longest toe and as wide as your foot. Proper Shoe Choices The following types of shoes are best for people with diabetes Closed toes and heels Leather uppers without a seam inside At least 1/2 inch extra space at the end of your longest toe Inside of shoe should be soft with no rough areas Outer sole should be made of stiff material Shoes should be at least as wide as your feet Tips for Foot Care in Diabetes Don't wait to treat a minor foot problem if you have diabetes. Follow your health care provider's guidelines and first aid guidelines. Report foot injuries and infections to your health care provider immediately. Check water temperature with your elbow, not your foot. Do not use a heating pad on your feet. Do not cross your legs. Do not self-treat your corns, calluses, or other foot problems. Go to your health care provider or storage engineer to treat these conditions. documented in this encounter [facility] 03-17-2022 Miscellaneous Notes Orders and required documentation faxed to [facility] at [phone] as requested. Patient updated through . DEVON Snow documented in this encounter [facility] 03-09-2022 Instructions Janine Root PA-C - 03/09/2022 1:44 PM EST Take gabapentin 300mg with dinner and at bedtime Take carbidopa/levadopa 25-100mg 1.5 tablet at breakfast, lunch and dinner Take carbidopa/levadopa CR 50-100mg at bedtime Referral to physical therapy Referral to occupational therapy Follow up in 3 months documented in this encounter [facility] 03-09-2022 History of Presen t illness Narrative Images from the original note were not included. [facility] Out[facility] Date: March 09, 2022 Patient Name: Rm Chau Referring physician: Eliceo Khan [address] [facility] [address] [facility] [id number] Primary physician: Eliceo Drummond [address] [place] [address] Reason for Evaluation: follow up Subjective HPI Rm Chau is a 81 year old, BMI 29.99 kg/m2 with a PMH significant noted on last note on visit 09/08/2021. 1. Parkinson disease (HCC) - ICD9: 332.0, ICD10: G20 (primary diagnosis) Doing well with stable exam findings and no complaints per patient and his family. Recommend no changes in medications at this time. Encouraged continued exercise and follow up with the delay the disease program. Also discussed options such as [employer]. 2. PIEDAD (obstructive sleep apnea) - ICD9: 327.23, ICD10: G47.33 Subjectively doing well. PAP data download pending. Reminded pt of those med conditions that could be exacerbated by untreated PIEDAD. Advised pt to not drive or operate heavy machinery if sleepy . Discussed proper means of and frequency of cleaning and replacing supplies/equipment. 3. RLS (restless legs syndrome) - ICD9: 333.94, ICD10: G25.81 Stable on gabapentin. No side effects. Will continue 300mg with dinner and 300mg QHS. Reviewed SE and ADRs to monitor for. 4. Diabetic polyneuropathy associated with type 2 diabetes mellitus (HCC) - ICD9: 250.60, 357.2, ICD10: E11.42 Stable with no new symptoms. Glucose (A1c) appears stable over last year. Explained likely progression over time. No discomfort at present and as noted above, already started on gabapentin for RLS. Follow up 6 months or sooner prn. PD- on sinemet 25-100mg tid sinemet CR 50-200mg once a day. Daughter notes a mildly worse voice and speaking slowly. Daughter notes that recall memory is still maintained. Patient notes a worsened shuffling gait and balance is consistently poor. No falls out of bed other than one where he roleld over. No longer exercises. PIEDAD- He has only been wearing the CPAP for an hour or two for many nights due to frustration with the device. He notes that he falls asleep shortly afterwards and stays asleep all night unless he has to urinate. He states that he feels well rested in the morning and denies any headache or other symptoms. RLS- Gabapentin 300mg bid. He states that it may be worsening and notes that he is symptomatic all day and at night. He is unsure if his gabapentin is helpful for his symptoms as he has never tried to stop the medication. DM neuropathy- Gabapentin 300mg bid. Last A1c was 6.8 two months ago. No worsening numbness, tingling or pain. Medications: Current Outpatient Medications Medication Sig Dispense Refill carbidopa-levodopa (SINEMET 25-100) 25-100 mg per tablet TAKE 1 TABLET 3 TIMES A DAY(TAKE AT BREAKFAST, LUNCH, AND DINNER) 270 tablet 1 carbidopa-levodopa CR (SINEMET CR) 50-200 mg per tablet Take 1 tablet 1 hour before bedtime. 270 tablet 1 gabapentin (NEURONTIN) 300 mg capsule TAKE 1 CAPSULE AT DINNER AND 1 CAPSULE AT BEDTIME 180 capsule 1 losartan (COZAAR) 25 mg tablet Take 1 tablet by mouth once daily. 90 tablet 3 amLODIPine (NORVASC) 2.5 mg tablet Take 1 tablet by mouth once daily. 90 tablet 3 omeprazole (PRILOSEC) 20 mg capsule Take 1 capsule by mouth daily before breakfast. 1/2 hr before meal. 90 capsule 3 metoprolol succinate ER (TOPROL XL) 25 mg 24 hr tablet Take 1 tablet by mouth once daily. 90 tablet 3 pravastatin (PRAVACHOL) 40 mg tablet Take 1 tablet by mouth once daily. 90 tablet 3 metFORMIN (GLUCOPHAGE) 1,000 mg tablet Take 1 tablet by mouth twice daily with meals. 180 tablet 3 Blood-Glucose Meter monitoring kit Glucose Meter of Choice - Kit - Dx: Type 2 DM - Controlled E11.9 1 Each 0 blood sugar diagnostic (BLOOD GLUCOSE TEST) test strip Test blood sugar(s) 1 times daily. Dx: Type 2 DM - Controlled E11.9 Insulin: No 100 Strip 11 Lancets lancets Test blood sugar(s) 1 times daily. Dx: Type 2 DM - Controlled E11.9 Insulin: No 100 Each 11 sertraline (ZOLOFT) 25 mg tablet Take 1 tablet by mouth once daily. 90 tablet 3 CPAP Heating tubing 1 Each 99 CPAP Please provide download. Please evaluate PAP device for faulty humidifier. 1 Device 99 CPAP Initiate Auto PAP @ 5-20 cm of water with humidification. Mask (per patient preference) optional chin strap (if indicated) , filters, tubing, humidifier and lifetime supplies. 1 Device 0 aspirin 81 mg chewable tablet Take 2 tablets by mouth once daily. 100 tablet 2 Current Facility-Administered Medications Medication Dose Route Frequency Provider Last Rate Last Admin leuprolide (6 month) 45 mg IM syringe kit (LUPRON) 45 mg INTRAMUSCULAR Q 6 MONTH Simon Hall V 45 mg at 11/13/19 1430 ROS ROS: His ROS was positive for that mentioned in the HPI. Otherwise a 10-point ROS was completed and was negative. ALLERGIES Allergen Reactions Lipitor [Atorvastat* Rash, Itching Codeine Rash Past Medical History: PAST MEDICAL HISTORY Diagnosis Date Bladder cancer ([facility]) 2010 CAD S/P percutaneous coronary angioplasty 06/1999 x 5 stents, atherectomy 2013, PCI to LAD 1999 and RCA 2000 DM (diabetes mellitus) ([facility]) type 2 HTN (hypertension) Hyperlipidemia PAD (peripheral artery disease) ([facility]) 2014 s/p stent right SFA Penile cancer ([facility]) 04/08/2010 Prostate cancer ([facility]) 2006 s/p radical robotic prostatectomy [place] Family History: FAMILY HISTORY Problem Relation Age of Onset Heart Mother Heart Father Aneurysm Father Stroke Father other (knee problems) Sister Heart Brother Stroke Brother Stroke Brother No Known Problems Brother No Known Problems Son No Known Problems Daughter Social History: Social History Tobacco Use Smoking status: Former Packs/day: 0.50 Years: 30.00 Pack years: 15.00 Types: Cigarettes Quit date: 04/13/2004 Years since quittin.9 Smokeless tobacco: Never Vaping Use Vaping Use: Never used Substance Use Topics Alcohol use: Yes Comment: [facility] Drug use: No Objective There were no vitals filed for this visit. Physical Examination General Appearance: Well appearing, alert, in no acute distress, well-hydrated, well nourished. Masked facies noted with decreased blink response Head: Normocephalic Pulm: Breathing comfortably Neck: Supple Psych: Cooperative, appropriate affect Neurological Examination: Mental Status: Alert and Oriented to Place, Person, Time and Situation and Patient follows commands.. Language: Is intact to Comprehension, Fluency and Repetition Cranial Nerves: CNII: Visual acuity normal, visual garcia full to confrontation CNIII, IV, : Pupils equal, round and reactive to light, full extraoccular movements, without nystagmus (although limited as patient had difficulty following directions) CN V: Facial sensation intact bilaterally to fine touch CN VII: Facial muscles symmetric and strong CN VIII: Hears finger rub well bilaterally CN IX: Gag Reflex not examined CN X: Palate elevates symmetrically CN XI: Full strength shoulder shrug bilaterally CN XII: Tongue protrusion full and midline Motor Exam: Tone - Increased tone in the bilateral upper extremities, right worse than left Bulk - Normal bulk noted in all muscles tested. Inspection - Normal, no fasciculations or tremors noted. Power: MUSCLES Upper Extremity RIGHT LEFT Deltoid 5/5 5/5 Biceps 5/5 5/5 Triceps 5/5 5/5 Wrist Extension 5/5 5/5 Wrist Flexion 5/5 5/5 Finger Flexion 5/5 5/5 Finger Extension 5/5 5/5 Finger Abd 5/5 5/5 Finger Add 5/5 5/5 MUSCLES Lower Extremity RIGHT LEFT Hip Flexion 5/5 5/5 Hip Extension 5/5 5/5 BiFem (Knee Flex) 5/5 5/5 Quads (Knee Ext) 5/5 5/5 Gastroc (Plantflx) 5/5 5/5 TibAnt (Dorsiflx) 5/5 5/5 TibPost (Ank Add) 5/5 5/5 Sensory Examination Sensation is intact to temperature, light touch and vibratory sense. Reflexes Right Left Bicep 2/4 2/4 Tricep 2/4 2/4 BrRad 1+/4 1+/4 Knee 2/4 2/4 Ankle 2/4 2/4 Coordination: Finger tapping decreased on the left side, foot tapping slowed bilaterally and equally. Impaired rapid alternating movements. Gait: Narrow based walk, stable. Decreased arm swing bilaterally, worse on the left. Unable to get out of chair without upper extremity assistance. Romberg: Mild retropulsion Assessment/Plan Assessment & Plan: Rm Chau is a 81 year old male with a history of PIEDAD, diabetes mellitus type 2, parkinson's disease, and RLS. His examination demonstrates mild worsening of his parkinsonism features with increased tone bilaterally, slowing of movement on the left side. Parkinson's Disease Patient with mildly worsening presentation of parkinson's disease. Will increase sinemet to 1.5 tablets tid and remain on the same nightly dose of sinemet CR. Patient educated on the importance of exercise and was given a referral to physical and occupational therapy. Patient and daughter were educated on the side effects of increasing the medication. PIEDAD- Patient with decreased compliance of his CPAP and last read showed average use of under 4 hours a night. Patient was encouraged to use the CPAP for at least 4 hours a night. Patient and daughter educated on health risks of noncompliance. RLS- Patient states that this has worsened and he is experiencing symptoms all day. Will consider increasing gabapentin dosage at next visit. Will only change one medication at a time. Diabetic neuropathy Patient states this is stable and currently managed with gabapentin. There are no diagnoses linked to this encounter. He should return to see me in 3 months. Janine Root PA-C [facility] ST[facility]FF [facility]YSICIAN NOTE OF PERSONAL INVOLVEMENT IN CARE I have reviewed the progress note obtained and documented by Janine Root PA-C and I personally participated in the pruitt components. I have discussed the case and management of the patient's care. The following comments revise or confirm relevant pruitt components of the note. Patient with physical decline since last visit, with patient admitting to performing no exercises during the interim. He does however appear to be compliant with all meds. RLS worse, but again, so is PD, with increase impairment in gait and fine motor movements. There was question of cognitive decline as well, but on further discussion this appears stable. As for PAP, he is not using as much as he should be and also admits to this but notes he will try harder. Download to be scanned into eOriginal but reviewed with pt and his family. GENERAL EXAM: General appearance: NAD, pleasant. HEENT: NC/AT, nasal congestion absent, no oral lesions, membranes moist. NECK: No masses, supple. Lungs: CTA bilaterally. CV: RRR nl S1, S2 Extr: No cyanosis, clubbing or edema. Skin: Cool to touch. NEUROLOGICAL EXAM: General: Masked facies. Awake, alert, oriented x3 (person,place,time), speech fluent, no dysarthria; comprehension, naming, repetition intact. CN: PERRL, EOMI and without nystagmus, VFF to confrontation, facial sensation and strength are normal and symmetric, hearing is intact to finger rub bilaterally, palate and tongue movements are intact and symmetric. SCM and trapezius strength normal. Motor: Increased tone allegra UE's L>>R. Strength 5/5 throughout. Coordination: FNF intact as is HTS but SHERITA impaired in LUE. Sensation: Light touch, vibration, temperature intact throughout. No evidence of neglect. Gait: Impaired ability to rise from chair without assist of upper exts. Near normal stride but decreased arm swing allegra (L>>>R). +Retropulsion on pull testing. ASSESSMENT/PLAN: 1. Parkinson's disease (HCC) - ICD9: 332.0, ICD10: G20 (primary diagnosis) Progressing since last visit. Possibly exacerbated by lack of activity. Encouraged exercise and will place order for PT/OT. Will also attempt to increase Sinemet 25/100mg dose to 1.5 tabs TID with meals. SE and ADRs d/w pt and his family. Will continue Sinemet CR dose at night as Rx'd above. 2. Diabetic polyneuropathy associated with type 2 diabetes mellitus (HCC) - ICD9: 250.60, 357.2, ICD10: E11.42 No new complaints today. Stable on gabapentin. Will continue to monitor. Hemoglobin A1C (%) Date Value 01/13/2022 6.8 01/24/2021 6.7 3. RLS (restless legs syndrome) - ICD9: 333.94, ICD10: G25.81 Possibly worse, but difficult to determine if symptoms worsening or pt just less active. As already increasing Sinemet as above and as to want to avoid confusion over which med is causing side effect, will make no changes to gabapentin dosing today and continue on 300mg Qdinner and QHS. 4. PIEDAD (obstructive sleep apnea) - ICD9: 327.23, ICD10: G47.33 Encouraged pap compliance. When using AHI controlled (<2) and pressure typically <13 cmH2O. Patient will try to continue to use nightly but now up to and over 4 hours. Reviewed with pt and family those med conditions possible exacerbated by untreated PIEDAD. Reminded to clean and replace equipment regularly. Pt NOT driving. Follow up 3 months or sooner prn. Eliceo Khan MD I spent a total of 40+ minutes on the date of the service which included preparing to see the patient, [id number] patient care, completing clinical documentation, obtaining and/or reviewing separately obtained history, performing a medically appropriate examination, counseling and educating the patient/family/caregiver, ordering medications, tests, or procedures, independently interpreting results (not separately reported), and communicating results to the patient/family/caregiver. PDMP website checked and validated. All prescriptions have been APPROPRIATELY filled. No suspicious activity was identified. 03/09/2022 by Eliceo Khan MD documented in this encounter [facility] 01-13-2022 History of Presen t illness Narrative Patient presents with: 6 Month Exam HPI: Patient presents today for office visit for 6 month follow up. Has had a cold last week. Better now. Was not covid tested. Has had some chronic hoarseness but has gotten worse since the diagnosis of Parkinson's No heartburn. DM: Reports overall feeling well. Medication side effects: No. Home sugar check frequency/results: daily Hypoglycemic spells: No. Watching diet: No. Unexpected weight loss: No. Polyuria, polydipsia: No. Vision Changes: No. Foot lesions or numbness or pain: No. HTN: Patient is compliant with meds Yes Monitors bp at home: No. Denies side effects: Yes. Chest pain: No. Dyspnea: No. Edema: No. Palpitations: No. Syncope: No. Headache: No. Dizziness: No. GERD: Patient takes: Omeprazole Heartburn is controlled: Yes.new symptoms.. Bloody or black stools: No. Bowel changes: No. Still seeing neuro. No falls. Using his walker or cane around the apartment. Still needs to see urology. Reminded him to Sees cardiology. Cpap is working well. Component Latest Ref Rng & Units 07/09/2021 Glucose 74 - 99 mg/dL 161 (H) BUN 9 - 24 mg/dL 23 Creatinine 0.73 - 1.22 mg/dL 0.93 Sodium 136 - 144 mmol/L 138 Potassium 3.7 - 5.1 mmol/L 5.0 Chloride 97 - 105 mmol/L 100 CO2 22 - 30 mmol/L 26 Anion Gap 9 - 18 mmol/L 12 Calcium 8.5 - 10.2 mg/dL 9.2 eGFR >=60 mL/min/1.73m 82 Hemoglobin A1C 4.3 - 5.6 % 6.5 (H) Estimated Average Glucose mg/dL 140 See previous.: Seeing neurology. He is not sure that he is getting any better. Using his walker. Doing therapy delay the disease Had some skin cancers removed. No chest pain or shortness of breath. No new edema. Sertraline is working well. Tolerating meds. Anemia has been stable. Had negative egd and colonoscopy in 2017. Has been stable since. Has had to postpone his urology appts. Will be seeing them soon. Has seen cardiology as well, Dr. Moncada Still treating his sleep apnea. His sugar have been stable. Was 168 recently for average. MEDICATIONS: Current Outpatient Medications Medication Sig carbidopa-levodopa (SINEMET 25-100) 25-100 mg per tablet TAKE 1 TABLET 3 TIMES A DAY(TAKE AT BREAKFAST, LUNCH, AND DINNER) carbidopa-levodopa CR (SINEMET CR) 50-200 mg per tablet Take 1 tablet 1 hour before bedtime. gabapentin (NEURONTIN) 300 mg capsule TAKE 1 CAPSULE AT DINNER AND 1 CAPSULE AT BEDTIME losartan (COZAAR) 25 mg tablet Take 1 tablet by mouth once daily. amLODIPine (NORVASC) 2.5 mg tablet Take 1 tablet by mouth once daily. omeprazole (PRILOSEC) 20 mg capsule Take 1 capsule by mouth daily before breakfast. 1/2 hr before meal. metoprolol succinate ER (TOPROL XL) 25 mg 24 hr tablet Take 1 tablet by mouth once daily. pravastatin (PRAVACHOL) 40 mg tablet Take 1 tablet by mouth once daily. metFORMIN (GLUCOPHAGE) 1,000 mg tablet Take 1 tablet by mouth twice daily with meals. Blood-Glucose Meter monitoring kit Glucose Meter of Choice - Kit - Dx: Type 2 DM - Controlled E11.9 blood sugar diagnostic (BLOOD GLUCOSE TEST) test strip Test blood sugar(s) 1 times daily. Dx: Type 2 DM - Controlled E11.9 Insulin: No Lancets lancets Test blood sugar(s) 1 times daily. Dx: Type 2 DM - Controlled E11.9 Insulin: No sertraline (ZOLOFT) 25 mg tablet Take 1 tablet by mouth once daily. CPAP Heating tubing CPAP Please provide download. Please evaluate PAP device for faulty humidifier. CPAP Initiate Auto PAP @ 5-20 cm of water with humidification. Mask (per patient preference) optional chin strap (if indicated) , filters, tubing, humidifier and lifetime supplies. aspirin 81 mg chewable tablet Take 2 tablets by mouth once daily. Current Facility-Administered Medications Medication Dose Route Frequency leuprolide (6 month) 45 mg IM syringe kit (LUPRON) 45 mg INTRAMUSCULAR Q 6 MONTH ALLERGIES: ALLERGIES Allergen Reactions Lipitor [Atorvastat* Rash, Itching Codeine Rash PAST MEDICAL HISTORY Diagnosis Date Bladder cancer (HCC) 2010 CAD S/P percutaneous coronary angioplasty 06/1999 x 5 stents, atherectomy 2013, PCI to LAD 1999 and RCA 2000 DM (diabetes mellitus) ([facility]) type 2 HTN (hypertension) Hyperlipidemia PAD (peripheral artery disease) ([facility]) 2014 s/p stent right SFA Penile cancer (HCC) 04/08/2010 Prostate cancer ([facility]) 2006 s/p radical robotic prostatectomy [place] PAST SURGICAL HISTORY Procedure Laterality Date BIOPSY PENIS SEPARATE PROCEDURE 2010 CABG (3) VEIN GRAFTS & ARTERIAL GRAFT(S) 06/2016 COLONOSCOPY FLX DX W/COLLJ SPEC WHEN PFRMD 10/27/2016 Normal colonoscopy-10 year follow-up CYSTOSCOPY,URETEROSC,BIOPSY ESOPHAGOGASTRODUODENOSCOPY TRANSORAL DIAGNOSTIC 09/21/2017 EGD HEART SURGERY HX LAPAROSCOPIC RADICAL PROSTATECTOMY 2006 PAST SURGICAL HISTORY OF 2010 x 5 heart stents PAST SURGICAL HISTORY OF Right 2014 right lower extremity stent for PAD PAST SURGICAL HISTORY OF 07/16/2016 bypass surgery at [facility] FAMILY HISTORY Problem Relation Age of Onset Heart Mother Heart Father Aneurysm Father Stroke Father other (knee problems) Sister Heart Brother Stroke Brother Stroke Brother No Known Problems Brother No Known Problems Son No Known Problems Daughter Social History Tobacco Use Smoking status: Former Packs/day: 0.50 Years: 30.00 Pack years: 15.00 Types: Cigarettes Quit date: 04/13/2004 Years since quittin.7 Smokeless tobacco: Never Vaping Use Vaping Use: Never used Substance Use Topics Alcohol use: Yes Comment: occs Drug use: No Reviewed current medications, allergies, past medical history, surgical history, family history and social history today. REVIEW OF SYSTEMS All other reviewed and negative other than HPI. HEALTH MAINTENANCE: Reviewed health maintenance issues today and recommended the following in detail. DEPRESSION ASSESSMENT Never done COVID-19 VACCINE(5 - Booster for Moderna series) due on 10/21/2021 INFLUENZA(1) due on 11/27/2021 HBA1C due on 01/08/2022 URINE ALBUMIN:CREATININE RATIO due on 01/24/2022 LDL CHOLESTEROL due on 01/24/2022 VITALS: BP 130/56 Pulse (!) 56 Ht 177.8 cm (5' 10 ) Wt 94.8 kg (209 lb) SpO2 98% BMI 29.99 kg/m Last 4 Encounter Wt Readings: Date: Wt: 01/13/2022 94.8 kg (209 lb) 09/08/2021 94.3 kg (208 lb) 07/09/2021 97.5 kg (215 lb) 06/06/2021 93 kg (205 lb) PHYSICAL EXAMINATION: General appearance: Well appearing, alert, in no acute distress, well-hydrated, well nourished. Skin: Skin color, texture, turgor normal, no suspicious rashes or lesions Head: Normocephalic, no masses, lesions, tenderness or abnormalities Lungs: Lungs clear to auscultation. No wheezing, rhonchi, rales Heart: RRR without murmur, gallop, or rubs. No ectopy Abdomen: Normal abdominal exam, Abdomen soft, non-tender. Bowel sounds normal. No masses, organomegaly Extremities: No deformities, edema, skin discoloration, clubbing or cyanosis. Good capillary refill. Musculoskeletal: No joint swelling, deformity, or tenderness Peripheral pulses: Normal Neuro: Gait normal. Reflexes normal and symmetric. Sensation grossly intact. ASSESSMENT/PLAN: 1. Diabetic polyneuropathy associated with type 2 diabetes mellitus (HCC) - ICD9: 250.60, 357.2, ICD10: E11.42 (primary diagnosis) Controlled. - Continue current medications - CBC + DIFF - COMP METABOLIC PANEL - LIPID PANEL BASIC - HGB A1C - ALBUMIN/CREAT RATIO RND UR 2. Encounter for immunization - ICD9: V03.89, ICD10: Z23 - INFLUENZA SEASONAL QUADRIVALENT HIGH DOSE AGE 65+ - PFIZER-ENT Surgical COVID-19 BIVALENT BOOSTER VACCINE, AGE 12+ YR 3. Hoarseness - ICD9: 784.42, ICD10: R49.0 - discussed evaluation. - CONSULT TO ENT 4. Parkinson disease (HCC) - ICD9: 332.0, ICD10: G20 - per neurol 5. 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) - ICD9: 414.05, 413.9, ICD10: I25.708 - LIPID PANEL, NONFASTING 6. Primary hypertension - ICD9: 401.9, ICD10: I10 - good control - Continue current medication(s) - Goal of BP <130/80 - LIPID PANEL, NONFASTING 7. PIEDAD (obstructive sleep apnea) - ICD9: 327.23, ICD10: G47.33 - stable. 8. Malignant neoplasm of prostate (HCC) - ICD9: 185, ICD10: C61 - CONSULT TO UROLOGY 9. Iron deficiency anemia, unspecified iron deficiency anemia type - ICD9: 280.9, ICD10: D50.9 - will follow 10. Ataxia - ICD9: 781.3, ICD10: R27.0 - falls prevention discussed 11. Malignant neoplasm of overlapping sites of bladder (HCC) - ICD9: 188.8, ICD10: C67.8 - see urology 12. Screening for prostate cancer - ICD9: V76.44, ICD10: Z12.5 - PSA/PROSTSPECAG SCRN - CONSULT TO UROLOGY Eliceo Drummond RTO in six months and prn. documented in this encounter [facility] 12-05-2021 Miscellaneous Notes Last office visit: 09/08/21 Next appointment scheduled: 03/09/22 Last labs: 07/09/21 Assessment and Plan: ASSESSMENT/PLAN: 1. Parkinson disease (HCC) - ICD9: 332.0, ICD10: G20 (primary diagnosis) Doing well with stable exam findings and no complaints per patient and his family. Recommend no changes in medications at this time. Encouraged continued exercise and follow up with the delay the disease program. Also discussed options such as [employer] Box[employer]. 2. PIEDAD (obstructive sleep apnea) - ICD9: 327.23, ICD10: G47.33 Subjectively doing well. PAP data download pending. Reminded pt of those med conditions that could be exacerbated by untreated PIEDAD. Advised pt to not drive or operate heavy machinery if sleepy . Discussed proper means of and frequency of cleaning and replacing supplies/equipment. 3. RLS (restless legs syndrome) - ICD9: 333.94, ICD10: G25.81 Stable on gabapentin. No side effects. Will continue 300mg with dinner and 300mg QHS. Reviewed SE and ADRs to monitor for. 4. Diabetic polyneuropathy associated with type 2 diabetes mellitus (HCC) - ICD9: 250.60, 357.2, ICD10: E11.42 Stable with no new symptoms. Glucose (A1c) appears stable over last year. Explained likely progression over time. No discomfort at present and as noted above, already started on gabapentin for RLS. Follow up 6 months or sooner prn. Eliceo Khan MD documented in this encounter [facility] 12-04-2021 Miscellaneous Notes Patient phones requesting refills as follows: Requested Prescriptions Pending Prescriptions Disp Refills losartan (COZAAR) 25 mg tablet 90 tablet 3 Sig: Take 1 tablet by mouth once daily. amLODIPine (NORVASC) 2.5 mg tablet 90 tablet 3 Sig: Take 1 tablet by mouth once daily. omeprazole (PRILOSEC) 20 mg capsule 90 capsule 3 Sig: Take 1 capsule by mouth daily before breakfast. 1/2 hr before meal. metoprolol succinate ER (TOPROL XL) 25 mg 24 hr tablet 90 tablet 3 Sig: Take 1 tablet by mouth once daily. pravastatin (PRAVACHOL) 40 mg tablet 90 tablet 3 Sig: Take 1 tablet by mouth once daily. metFORMIN (GLUCOPHAGE) 1,000 mg tablet 180 tablet 3 Sig: Take 1 tablet by mouth twice daily with meals. PATRICIA 4/13/22 NOV 01/08/22 Please review and advise. Fahad Turner LPN documented in this encounter [facility] 11-28-2021 History of Presen t illness Narrative Last saw Dr. Drummond: 01/24/21 Subjective: Patient presents to clinic c/o painful toenails. They state that the nails are especially painful with shoe gear and pressure. Patient states that nails 1-5 b/l are painful. Patient admits to being diabetic. No other pedal complaints at this time. Patient states no change in medications or medical history since last visit. Objective: Patient presents to clinic ambulating in [facility] Vasc: DP and PT pulses are palpable bilateral. CFT is less than 5 seconds bilateral. Skin temperature is warm to cool proximal to distal bilateral. There is no edema or varicosities noted. Neuro: Protective sensation is intact to the foot and toes when tested with the 5.07 SWM bilateral. Vibratory sensation is decreased at the hallux IPJ bilateral. The hallux is downgoing bilateral. Derm: Nails 1-5 b/l are painful, discolored-yellow, thick, crumbly, dystrophic and with subungal debris. Skin is of normal turgor, texture and hair growth is present bilateral. There are no hyperkeratosis, ulcerations, scars, verruca or other lesions noted. Ortho: Muscle strength is 5/5 for all pedal groups tested. Ankle joint DF is decreased with the knee extended with no pain or crepitus noted. 1st MPJ ROM is decreased bilateral. Assessment: (B35.1) Onychomycosis (primary encounter diagnosis) (M79.675) Pain in toe of left foot (M79.674) Pain in toe of right foot (E11.9, Z79.4) Controlled type 2 diabetes mellitus without complication, with long-term current use of insulin ([facility]) Plan: Patient was seen and evaluated. Nails 1-5 bilateral were debrided in length and thickness. Patient was instructed on the continued importance of diabetic foot care along with proper diet and keeping their blood sugar under control to prevent complications. Patient is to RTC in 3-4 months. Marcos Juarez DPM AMB ROOMING INTAKE FLOWSHEET DATA Risk Screening Do you have concerns about personal safety or safety in the home?: No Patient presents with: Left Foot - Established Patient, Diabetic Foot Care Right Foot - Established Patient, Diabetic Foot Care documented in this encounter [facility] 11-28-2021 Instructions Marcos Juarez - 11/28/2021 3:13 PM EDT Diabetes Foot Care Instructions When you have diabetes, proper foot care is very important. Poor foot care may lead to amputation of a foot or leg. As a person with diabetes, you are more vulnerable to foot problems, because diabetes can damage your nerves and reduce blood flow to your feet. Here are some diabetes foot care tips to follow: Wash and Dry Your Feet Daily Use mild soaps Use warm water Pat your skin dry; do not rub. Thoroughly dry your feet. After washing, use lotion on your feet to prevent cracking. Do not put lotion between your toes. Examine Your Feet Each Day Check the tops and bottoms of your feet. Have someone else look at your feet if you cannot see them. Check for dry, cracked skin. Look for blisters, cuts, scratches, or other sores. Check for redness, increased warmth, or tenderness when touching any area of your feet. Check for ingrown toenails, corns, and calluses. If you get a blister or sore from your shoes, do not pop it. Apply a bandage and wear a different pair of shoes. Take Care of Your Toenails Cut toenails after bathing, when they are soft. Cut toenails straight across and smooth with a nail file. Avoid cutting into the corners of toes. Do not cut cuticles. If you have neuropathy (or decreased sensation in your feet) a storage engineer should always cut your toenails. Be Careful When Exercising Walk and exercise in comfortable shoes. Do not exercise when you have open sores on your feet. Protect Your Feet With Shoes and Socks Never go barefoot. Always protect your feet by wearing shoes or hard-soled slippers or footwear. Avoid shoes with high heels and pointed toes. Avoid shoes that expose your toes or heels (such as open-toed shoes or sandals). These types of shoes increase your risk for injury and potential infections. Try on new footwear with the type of socks you usually wear. Do not wear new shoes for more than an hour at a time. Change your socks daily. Look and feel inside your shoes before putting them on to make sure there are no foreign objects or rough areas. Avoid tight socks. Wear natural-fiber socks (cotton, wool, or a cotton-wool blend). Wear special shoes if your health care provider recommends them. Wear shoes/boots that will protect your feet from various weather conditions (cold, moisture, etc.). Make sure your shoes fit properly. If you have neuropathy (nerve damage), you may not notice that your shoes are too tight. Perform the footwear test described below. Footwear Test Use this simple test to see if your shoes fit correctly: Stand on a piece of paper. (Make sure you are standing and not sitting, because your foot changes shape when you stand.) Trace the outline of your foot. Trace the outline of your shoe. Compare the tracings: Is the shoe too narrow? Is your foot crammed into the shoe? The shoe should be at least 1/2 inch longer than your longest toe and as wide as your foot. Proper Shoe Choices The following types of shoes are best for people with diabetes Closed toes and heels Leather uppers without a seam inside At least 1/2 inch extra space at the end of your longest toe Inside of shoe should be soft with no rough areas Outer sole should be made of stiff material Shoes should be at least as wide as your feet Tips for Foot Care in Diabetes Don't wait to treat a minor foot problem if you have diabetes. Follow your health care provider's guidelines and first aid guidelines. Report foot injuries and infections to your health care provider immediately. Check water temperature with your elbow, not your foot. Do not use a heating pad on your feet. Do not cross your legs. Do not self-treat your corns, calluses, or other foot problems. Go to your health care provider or storage engineer to treat these conditions. documented in this encounter [facility] 10-02-2021 Miscellaneous Notes Spoke with patient. Let him know below. It was not stopped per our office. I will send in if he is still taking it. It looks like on 09/08/2021 he reported to not taking it at his visit with Dr. Khan. A new script will need to be sent to [facility] if he should still be taking it. Please review and advise. Patient would like his furosemide filled by [facility]. Patient said he is still taking the furosemide 20mg once a day. If it has been discontinued he would like a call from the doctor explaining why. Rm [phone] documented in this encounter [facility] 09-16-2021 Miscellaneous Notes Needs to go to to local pharmacy Pt asking to have prescription below expedited. [facility] will be mailing to pt. He is requesting 3 month supply from local. His mail Service will mail out starting 11/2021. Pt has been out of medication x 1 week. Patient has been identified by name and date of : Yes Patient phones for refill(s): Pending Prescriptions Disp Refills METFORMIN 1,000 MG TABLET 180 tablet 0 Sig: Take 1 tablet by mouth twice daily with meals. Pt requesting this be mailed to him meredith. Out of medication. Date of last office visit in primary care: 07/09/21 next apt 01/08/22 Last 2 Encounter Wt Readings: Date: Wt: 09/08/2021 94.3 kg (208 lb) 07/09/2021 97.5 kg (215 lb) Previous labs/tests for medication: Diabetes: Hemoglobin A1C (%) Date Value 07/09/2021 6.5 01/24/2021 6.7 01/11/2020 7.2 Please advise. Thank you. Jacklyn Jolly LPN documented in this encounter [facility] 09-12-2021 Miscellaneous Notes Pt will leaf size picker rx at local pharmacy but needs next rx to be sent to mail order pharmacy. rx sent in. It appears it was simply computer error. It is now corrected. Patient called back again demanding to speak with Dr. Drummond or a nurse. Wants to know why this medication is noted as discontinued on his med list. Said he has been without medication for a few days. Wants a call back today meredith. Rm Chau is calling Eliceo Drummond MD today Patient is requesting a refill of medication under his chart. [facility] will deliver the medication today if approved metFORMIN (GLUCOPHAGE) 1,000 mg tablet documented in this encounter [facility] 09-08-2021 History of Presen t illness Narrative ESTABLISHED PATIENT VISIT CHIEF COMPLAINT: Follow Up HISTORY OF PRESENT ILLNESS: Rm Chau is a 81 year old male, BMI 29.84 kg/m2 with a PMH significant for and per last office visit note of 06/06/21: 1. Parkinson disease (HCC) - ICD9: 332.0, ICD10: G20 (primary diagnosis) Overall, exam appears stable. Some gait difficulties in narrow settings, but otherwise doing well. As of today, will not change Sinemet dosing as feel increase will have risks that outweigh benefits. Encouraged continued exercise and follow up with the slow the disease therapy program. Discussed fall risks as well and need to make slower positional changes for safety. 2. RLS (restless legs syndrome) - ICD9: 333.94, ICD10: G25.81 Symptoms appear worse. Unclear if exacerbated (augmented) due to need for Sinemet for PD. Obviously need for Sinemet to treat PD outweighs possible influence on RLS as essentially all dopaminergics will have such risk. Thus, will start on gabapentin 300mg - 1 capsule at dinner and 1 capsule at bedtime to see if this reduces RLS symptoms. SE and ADRs d/w pt and his family including and daughter. Also advised to make sure he is taking Zoloft in AM as SSRI could exacerbate RLS symptoms. Zoloft AM 3. PIEDAD (obstructive sleep apnea) - ICD9: 327.23, ICD10: G47.33 Encouraged compliance and increase in use (>4 hours). Reminded to clean and replace equipment regularly. Pt with no specific PAP complaints. Just states that he takes off the device when he gets up to use the bathroom and does not put it back on. Pt will try to put back on mid night in the future. Patient thinks he is doing fairly well. He did have a fall out of bed when reaching for his PAP and rolled off the bed. No RBD type behaviors. Using walker (roller) when leaves apartment, but otherwise no issues or need for assist device at home. Except, uses cane for support in the middle of the night if needed to use the bathroom. No tremors. Constipation improved since taking oral supplements. No hallucinations. No side effects from the medications. Feels RLS is much better. Taking gabapentin 300mg at dinner and bedtime. Maybe 2 episodes in the last month that broke through the medication. No issues falling asleep at night otherwise except rare occasion of thinking about things. Good energy during the day. Denies sleeping through the day. Now taking Sertraline in the AM. Uses PAP nightly. He estimates sleep from 11PM to 7AM -- then might go back to sleep for another hour. REVIEW OF SYSTEMS GENERAL:No weight loss, malaise or fevers. HEENT:Negative for frequent or significant headaches, No changes in hearing or vision, no nose bleeds or other nasal problems NECK:Negative for lumps, goiter, pain and significant neck swelling RESPIRATORY: Negative for cough, wheezing or shortness of breath. CARDIOVASCULAR: Negative for chest painor palpitations. GASTROINTESTINAL: Negative for abdominal discomfort, blood in stools or black stools or change in bowel habits GENITOURINARY: No history of dysuria, frequency or incontinence MUSCULOSKELETAL: Negative for joint pain or swelling, back pain or muscle pain. NEUROLOGIC:See HPI. SKIN:Negative for lesions, rash, and itching. HEMATOLOGIC/LYMPHATIC/IMMUNOLOGI C:Negative for prolonged bleeding, bruising easily or swollen nodes. ENDOCRINE: Negative for cold or heat intolerance, polyuria, polydipsia and goiter. The remainder of the ROS was reviewed and is negative. LAB/IMAGING: Those performed since patient's last visit have been reviewed. WBC (k/uL) Date Value 01/24/2021 8.69 RBC (m/uL) Date Value 01/24/2021 4.33 Hemoglobin (g/dL) Date Value 01/24/2021 12.3 (L) Hematocrit (%) Date Value 01/24/2021 38.5 (L) MCV (fL) Date Value 01/24/2021 88.9 MCH (pG) Date Value 01/24/2021 28.4 MCHC (g/dL) Date Value 01/24/2021 31.9 RDW-CV (%) Date Value 01/24/2021 12.3 Platelet Count (k/uL) Date Value 01/24/2021 252 MPV (fL) Date Value 01/24/2021 10.7 Glucose (mg/dL) Date Value 07/09/2021 161 (H) BUN (mg/dL) Date Value 07/09/2021 23 Creatinine (mg/dL) Date Value 07/09/2021 0.93 Sodium (mmol/L) Date Value 07/09/2021 138 Potassium (mmol/L) Date Value 07/09/2021 5.0 Chloride (mmol/L) Date Value 07/09/2021 100 CO2 (mmol/L) Date Value 07/09/2021 26 Protein, Total (g/dL) Date Value 01/24/2021 7.0 Albumin (g/dL) Date Value 01/24/2021 4.3 Calcium, Total (mg/dL) Date Value 07/09/2021 9.2 Alkaline Phosphatase (U/L) Date Value 01/24/2021 60 Bilirubin, Total (mg/dL) Date Value 01/24/2021 0.3 AST (U/L) Date Value 01/24/2021 21 ALT (U/L) Date Value 01/24/2021 12 MEDICATIONS: gabapentin (NEURONTIN) 300 mg capsule TAKE 1 CAPSULE AT DINNER AND 1 CAPSULE AT BEDTIME amLODIPine (NORVASC) 2.5 mg tablet Take 1 tablet by mouth once daily. omeprazole (PRILOSEC) 20 mg capsule Take 1 capsule by mouth daily before breakfast. 1/2 hr before meal. metoprolol succinate ER (TOPROL XL) 25 mg 24 hr tablet Take 1 tablet by mouth once daily. pravastatin (PRAVACHOL) 40 mg tablet Take 1 tablet by mouth once daily. blood sugar diagnostic (BLOOD GLUCOSE TEST) test strip Test blood sugar(s) 1 times daily. Dx: Type 2 DM - Controlled E11.9 Insulin: No Lancets lancets Test blood sugar(s) 1 times daily. Dx: Type 2 DM - Controlled E11.9 Insulin: No carbidopa-levodopa (SINEMET 25-100) 25-100 mg per tablet TAKE 1 TABLET 3 TIMES A DAY(TAKE AT BREAKFAST, LUNCH, AND DINNER) carbidopa-levodopa CR (SINEMET CR) 50-200 mg per tablet Take 1 tablet 1 hour before bedtime. sertraline (ZOLOFT) 25 mg tablet Take 1 tablet by mouth once daily. losartan (COZAAR) 25 mg tablet Take 1 tablet by mouth once daily. CPAP Heating tubing CPAP Please provide download. Please evaluate PAP device for faulty humidifier. CPAP Initiate Auto PAP @ 5-20 cm of water with humidification. Mask (per patient preference) optional chin strap (if indicated) , filters, tubing, humidifier and lifetime supplies. aspirin 81 mg chewable tablet Take 2 tablets by mouth once daily. furosemide (LASIX) 20 mg tablet Take 1 tablet by mouth once daily. Blood-Glucose Meter monitoring kit Glucose Meter of Choice - Kit - Dx: Type 2 DM - Controlled E11.9 HISTORIES PAST MEDICAL HISTORY Diagnosis Date Bladder cancer ([facility]) 2010 CAD S/P percutaneous coronary angioplasty 06/1999 x 5 stents, atherectomy 2013, PCI to LAD 1999 and RCA 2000 DM (diabetes mellitus) ([facility]) type 2 HTN (hypertension) Hyperlipidemia PAD (peripheral artery disease) ([facility]) 2014 s/p stent right SFA Penile cancer ([facility]) 04/08/2010 Prostate cancer ([facility]) 2006 s/p radical robotic prostatectomy [place] FAMILY HISTORY Problem Relation Age of Onset Heart Mother Heart Father Aneurysm Father Stroke Father other (knee problems) Sister Heart Brother Stroke Brother Stroke Brother No Known Problems Brother No Known Problems Son No Known Problems Daughter SOCIAL HISTORY Social History Tobacco Use Smoking status: Former Smoker Packs/day: 0.50 Years: 30.00 Pack years: 15.00 Types: Cigarettes Quit date: 04/13/2004 Years since quittin.4 Smokeless tobacco: Never Used Vaping Use Vaping Use: Never used Substance Use Topics Alcohol use: Yes Comment: occs Drug use: No PHYSICAL EXAMINATION BP 128/68 Pulse (!) 58 Temp 36.3 C (97.4 F) Resp 18 Wt 94.3 kg (208 lb) SpO2 96% BMI 29.84 kg/m GENERAL EXAM: General appearance: NAD, pleasant. HEENT: NC/AT, nasal congestion absent, no oral lesions, membranes moist. NECK: ROM nml. Lungs: CTA bilaterally. CV: RRR nl S1, S2 Extr: No cyanosis, clubbing or edema. Skin: Cool to touch. NEUROLOGICAL EXAM: General: Awake, alert, oriented x3 (person,place,time), speech fluent, no dysarthria; comprehension, naming, repetition intact. CN: PERRL, EOMI and without nystagmus, VFF to confrontation, facial sensation and strength are normal and symmetric, hearing is intact to finger rub bilaterally, palate and tongue movements are intact and symmetric. SCM and trapezius strength normal. Motor: Normal tone, bulk and strength (5/5) bilaterally (throughout extremities x4). Coordination: FNF, SHREITA, HTS intact. No tremors. Sensation: Light touch, vibration, temperature intact throughout. No evidence of neglect. Gait: Narrow based but stable with normal stride but decreased LUE arm swing. Romberg normal. No issues rising from a chair even without upper ext assistance. Assessment and Plan: ASSESSMENT/PLAN: 1. Parkinson disease (HCC) - ICD9: 332.0, ICD10: G20 (primary diagnosis) Doing well with stable exam findings and no complaints per patient and his family. Recommend no changes in medications at this time. Encouraged continued exercise and follow up with the delay the disease program. Also discussed options such as [employer]. 2. PIEDAD (obstructive sleep apnea) - ICD9: 327.23, ICD10: G47.33 Subjectively doing well. PAP data download pending. Reminded pt of those med conditions that could be exacerbated by untreated PIEDAD. Advised pt to not drive or operate heavy machinery if sleepy . Discussed proper means of and frequency of cleaning and replacing supplies/equipment. 3. RLS (restless legs syndrome) - ICD9: 333.94, ICD10: G25.81 Stable on gabapentin. No side effects. Will continue 300mg with dinner and 300mg QHS. Reviewed SE and ADRs to monitor for. 4. Diabetic polyneuropathy associated with type 2 diabetes mellitus (HCC) - ICD9: 250.60, 357.2, ICD10: E11.42 Stable with no new symptoms. Glucose (A1c) appears stable over last year. Explained likely progression over time. No discomfort at present and as noted above, already started on gabapentin for RLS. Follow up 6 months or sooner prn. Eliceo Khan MD I spent a total of 35 minutes on the date of the service which included preparing to see the patient, [id number] patient care, completing clinical documentation, obtaining and/or reviewing separately obtained history, performing a medically appropriate examination, counseling and educating the patient/family/caregiver, ordering medications, tests, or procedures, independently interpreting results (not separately reported) and communicating results to the patient/family/caregiver. PDMP website checked and validated. All prescriptions have been APPROPRIATELY filled. No suspicious activity was identified. 09/08/2021 by Eliceo Khan MD documented in this encounter [facility] 08-29-2021 Miscellaneous Notes PDMP website checked and validated. All prescriptions have been APPROPRIATELY filled. No suspicious activity was identified. 08/29/2021 by Eliceo Khan MD Patient phones requesting refills as follows: Pending Prescriptions Disp Refills GABAPENTIN 300 MG CAPSULE 180 capsule 0 Sig: TAKE 1 CAPSULE AT DINNER AND 1 CAPSULE AT BEDTIME STARLA: Yes Please review and advise. Patel Queen documented in this encounter [facility] 08-22-2021 History of Presen t illness Narrative Last saw Dr. Drummond: 01/24/21 Subjective: Patient presents to clinic c/o painful toenails. They state that the nails are especially painful with shoe gear and pressure. Patient states that nails 1-5 b/l are painful. Patient admits to being diabetic. No other pedal complaints at this time. Patient states no change in medications or medical history since last visit. Objective: Patient presents to clinic ambulating in sandals Vasc: DP and PT pulses are decreased bilateral. CFT is less than 5 seconds bilateral. Skin temperature is warm to cool proximal to distal bilateral. There is mild edema or varicosities noted. Neuro: Protective sensation is intact to the foot and toes when tested with the 5.07 SWM bilateral. Vibratory sensation is decreased at the hallux IPJ bilateral. The hallux is downgoing bilateral. Derm: Nails 1-5 b/l are painful, discolored-yellow, thick, crumbly, dystrophic and with subungal debris. Skin is of normal turgor, texture and hair growth is decreased bilateral. There are no hyperkeratosis, ulcerations, scars, verruca or other lesions noted. Ortho: Muscle strength is 5/5 for all pedal groups tested. Ankle joint DF is decreased with the knee extended with no pain or crepitus noted. 1st MPJ ROM is decreased bilateral. Assessment: (B35.1) Onychomycosis (primary encounter diagnosis) (M79.675) Pain in toe of left foot (M79.674) Pain in toe of right foot (E11.9, Z79.4) Controlled type 2 diabetes mellitus without complication, with long-term current use of insulin ([facility]) Plan: Patient was seen and evaluated. Nails 1-5 bilateral were debrided in length and thickness. Patient was instructed on the continued importance of diabetic foot care along with proper diet and keeping their blood sugar under control to prevent complications. Patient is to RTC in 3-4 months. Marcos Juarez DPM Patient presents with: Left Foot - Follow Up, Diabetic Foot Care Right Foot - Follow Up, Diabetic Foot Care AMB ROOMING INTAKE FLOWSHEET DATA Risk Screening Do you have concerns about personal safety or safety in the home?: No No pain noted. Jacklyn Perez documented in this encounter [facility] 08-22-2021 Instructions Marcos Juarez - 08/22/2021 1:30 PM EDT Diabetes Foot Care Instructions When you have diabetes, proper foot care is very important. Poor foot care may lead to amputation of a foot or leg. As a person with diabetes, you are more vulnerable to foot problems, because diabetes can damage your nerves and reduce blood flow to your feet. Here are some diabetes foot care tips to follow: Wash and Dry Your Feet Daily Use mild soaps Use warm water Pat your skin dry; do not rub. Thoroughly dry your feet. After washing, use lotion on your feet to prevent cracking. Do not put lotion between your toes. Examine Your Feet Each Day Check the tops and bottoms of your feet. Have someone else look at your feet if you cannot see them. Check for dry, cracked skin. Look for blisters, cuts, scratches, or other sores. Check for redness, increased warmth, or tenderness when touching any area of your feet. Check for ingrown toenails, corns, and calluses. If you get a blister or sore from your shoes, do not pop it. Apply a bandage and wear a different pair of shoes. Take Care of Your Toenails Cut toenails after bathing, when they are soft. Cut toenails straight across and smooth with a nail file. Avoid cutting into the corners of toes. Do not cut cuticles. If you have neuropathy (or decreased sensation in your feet) a storage engineer should always cut your toenails. Be Careful When Exercising Walk and exercise in comfortable shoes. Do not exercise when you have open sores on your feet. Protect Your Feet With Shoes and Socks Never go barefoot. Always protect your feet by wearing shoes or hard-soled slippers or footwear. Avoid shoes with high heels and pointed toes. Avoid shoes that expose your toes or heels (such as open-toed shoes or sandals). These types of shoes increase your risk for injury and potential infections. Try on new footwear with the type of socks you usually wear. Do not wear new shoes for more than an hour at a time. Change your socks daily. Look and feel inside your shoes before putting them on to make sure there are no foreign objects or rough areas. Avoid tight socks. Wear natural-fiber socks (cotton, wool, or a cotton-wool blend). Wear special shoes if your health care provider recommends them. Wear shoes/boots that will protect your feet from various weather conditions (cold, moisture, etc.). Make sure your shoes fit properly. If you have neuropathy (nerve damage), you may not notice that your shoes are too tight. Perform the footwear test described below. Footwear Test Use this simple test to see if your shoes fit correctly: Stand on a piece of paper. (Make sure you are standing and not sitting, because your foot changes shape when you stand.) Trace the outline of your foot. Trace the outline of your shoe. Compare the tracings: Is the shoe too narrow? Is your foot crammed into the shoe? The shoe should be at least 1/2 inch longer than your longest toe and as wide as your foot. Proper Shoe Choices The following types of shoes are best for people with diabetes Closed toes and heels Leather uppers without a seam inside At least 1/2 inch extra space at the end of your longest toe Inside of shoe should be soft with no rough areas Outer sole should be made of stiff material Shoes should be at least as wide as your feet Tips for Foot Care in Diabetes Don't wait to treat a minor foot problem if you have diabetes. Follow your health care provider's guidelines and first aid guidelines. Report foot injuries and infections to your health care provider immediately. Check water temperature with your elbow, not your foot. Do not use a heating pad on your feet. Do not cross your legs. Do not self-treat your corns, calluses, or other foot problems. Go to your health care provider or storage engineer to treat these conditions. documented in this encounter [facility] 07-09-2021 History of Presen t illness Narrative Patient presents with: 6 Month Exam HPI: Patient presents today for office visit for follow up. Seeing neurology. He is not sure that he is getting any better. Using his walker. Doing therapy delay the disease Had some skin cancers removed. No chest pain or shortness of breath. No new edema. Sertraline is working well. Tolerating meds. Anemia has been stable. Had negative egd and colonoscopy in 2017. Has been stable since. Has had to postpone his urology appts. Will be seeing them soon. Has seen cardiology as well, Dr. Moncada Still treating his sleep apnea. His sugar have been stable. Was 168 recently for average. See previous ov: Recently seeing Dr. Khan. Sinemet started for parkinson's. He is unsure if helping. Follows with neurology next week. No falls. Now living [facility]. Uses walker outside but can in house. Saw Dr. Juarez for onychomycosis. Begun on zoloft per Fred recently for depression. Is much better on meds. Sleeping ok. His says he sleeps well but he says he is having some issues with his cpap. Moods are good. Following with urology as well. Still seeing cardiology. Has had some lightheadedness which he discussed with Dr. Khan. bp is on the lower side. No true vertigo. Lightheaded on rising and has to slow down. No chest pain or shortness of breath or edema. DM: last time he checked sugars were stable. Last 30 day average was 164. See my last ov from 04/2019 Hypertension: overall doing well. HLD:no myalgias. Tolerating meds. DM:sugars have been stable. His sugars have usually been ok. As high as 170's. GERD:no heartburn. URO:still seeing urology. Overall has been ok. Still some nocturia. CAD:still seeing cardiology. No current issues. No chest pain No shortness of breath. No edema. No palpitations No claudication. Seeing Dr. Singleton. His eyes have not been back to normal since his cataracts. His vision may not end up being better. Component Latest Ref Rng & Units 01/24/2021 WBC 3.70 - 11.00 k/uL 8.69 RBC 4.20 - 6.00 m/uL 4.33 Hemoglobin 13.0 - 17.0 g/dL 12.3 (L) Hematocrit 39.0 - 51.0 % 38.5 (L) MCV 80.0 - 100.0 fL 88.9 MCH 26.0 - 34.0 pG 28.4 MCHC 30.5 - 36.0 g/dL 31.9 RDW-CV 11.5 - 15.0 % 12.3 Platelet Count 150 - 400 k/uL 252 MPV 9.0 - 12.7 fL 10.7 Neut% % 73.3 Abs Neut (ANC) 1.45 - 7.50 k/uL 6.37 Lymph% % 16.3 Abs Lymph 1.00 - 4.00 k/uL 1.42 [place]% % 8.4 Abs [place] <0.87 k/uL 0.73 Eosin% % 1.4 Abs Eosin <0.46 k/uL 0.12 Baso% % 0.6 Abs Baso <0.11 k/uL 0.05 Nucleated Reds 0 /100 WBC 0.0 Absolute nRBC <0.01 k/uL <0.01 Diff Type Auto Diff Protein, Total 6.3 - 8.0 g/dL 7.0 Albumin 3.9 - 4.9 g/dL 4.3 Calcium 8.5 - 10.2 mg/dL 9.6 Bilirubin, Total 0.2 - 1.3 mg/dL 0.3 Alkaline Phosphatase 38 - 113 U/L 60 AST 14 - 40 U/L 21 Glucose 74 - 99 mg/dL 147 (H) BUN 9 - 24 mg/dL 18 Creatinine 0.73 - 1.22 mg/dL 0.97 Sodium 136 - 144 mmol/L 137 Potassium 3.7 - 5.1 mmol/L 4.4 Chloride 97 - 105 mmol/L 99 CO2 22 - 30 mmol/L 24 Anion Gap 9 - 18 mmol/L 14 ALT 10 - 54 U/L 12 eGFR- >60 eGFR-All Other Races . >60 Cholesterol, Total <200 mg/dL 163 Triglyceride <150 mg/dL 152 (H) HDL Cholesterol >39 mg/dL 47 LDL Cholesterol <100 mg/dL 86 Non HDL Cholesterol <130 mg/dL 116 Fasting Time hrs 12 VLDL Cholesterol <30 mg/dL 30 (H) TC:HDL Ratio <5.10 3.47 LDL:HDL Ratio <2.54 1.83 Creatinine, Ur Random (UCRR) 20 - 300 mg/dL 94.5 Albumin, Urine Random mg/L 19.8 Albumin/Creat Ratio <30 mg/g 21 Hemoglobin A1C 4.3 - 5.6 % 6.7 (H) Estimated Average Glucose mg/dL 146 MEDICATIONS: Current Outpatient Medications Medication Sig carbidopa-levodopa (SINEMET 25-100) 25-100 mg per tablet TAKE 1 TABLET 3 TIMES A DAY(TAKE AT BREAKFAST, LUNCH, AND DINNER) carbidopa-levodopa CR (SINEMET CR) 50-200 mg per tablet Take 1 tablet 1 hour before bedtime. gabapentin (NEURONTIN) 300 mg capsule Take 1 capsule at dinner and 1 capsule at bedtime. metFORMIN (GLUCOPHAGE) 1,000 mg tablet Take 1 tablet by mouth twice daily with meals. sertraline (ZOLOFT) 25 mg tablet Take 1 tablet by mouth once daily. losartan (COZAAR) 25 mg tablet Take 1 tablet by mouth once daily. amLODIPine (NORVASC) 2.5 mg tablet Take 1 tablet by mouth once daily. omeprazole (PRILOSEC) 20 mg capsule Take 1 capsule by mouth daily before breakfast. 1/2 hr before meal. metoprolol succinate ER (TOPROL XL) 25 mg 24 hr tablet Take 1 tablet by mouth once daily. furosemide (LASIX) 20 mg tablet Take 1 tablet by mouth once daily. pravastatin (PRAVACHOL) 40 mg tablet Take 1 tablet by mouth once daily. blood sugar diagnostic (BLOOD GLUCOSE TEST) test strip Test blood sugar(s) one times daily. Dx: Type 2 DM - Controlled E11.9 Insulin: No. Easy Touch [employer] Pro Lancets lancets Test blood sugar(s) one times daily. Dx: Type 2 DM - Controlled E11.9 Insulin: No CPAP Heating tubing CPAP Please provide download. Please evaluate PAP device for faulty humidifier. CPAP Initiate Auto PAP @ 5-20 cm of water with humidification. Mask (per patient preference) optional chin strap (if indicated) , filters, tubing, humidifier and lifetime supplies. aspirin 81 mg chewable tablet Take 2 tablets by mouth once daily. Current Facility-Administered Medications Medication Dose Route Frequency leuprolide (6 month) 45 mg IM syringe kit (LUPRON) 45 mg INTRAMUSCULAR Q 6 MONTH ALLERGIES: ALLERGIES Allergen Reactions Lipitor [Atorvastat* Rash, Itching Codeine Rash PAST MEDICAL HISTORY Diagnosis Date Bladder cancer ([facility]) 2010 CAD S/P percutaneous coronary angioplasty 06/1999 x 5 stents, atherectomy 2013, PCI to LAD 1999 and RCA 2000 DM (diabetes mellitus) ([facility]) type 2 HTN (hypertension) Hyperlipidemia PAD (peripheral artery disease) ([facility]) 2014 s/p stent right SFA Penile cancer ([facility]) 04/08/2010 Prostate cancer ([facility]) 2006 s/p radical robotic prostatectomy Snoring PAST SURGICAL HISTORY Procedure Laterality Date BIOPSY PENIS SEPARATE PROCEDURE 2010 CABG (3) VEIN GRAFTS & ARTERIAL GRAFT(S) 06/2016 COLONOSCOPY FLX DX W/COLLJ SPEC WHEN PFRMD 10/27/2016 Normal colonoscopy-10 year follow-up CYSTOSCOPY,URETEROSC,BIOPSY ESOPHAGOGASTRODUODENOSCOPY TRANSORAL DIAGNOSTIC 09/21/2017 EGD HEART SURGERY HX LAPAROSCOPIC RADICAL PROSTATECTOMY 2006 PAST SURGICAL HISTORY OF 2010 x 5 heart stents PAST SURGICAL HISTORY OF Right 2014 right lower extremity stent for PAD PAST SURGICAL HISTORY OF 07/16/2016 bypass surgery at [facility] FAMILY HISTORY Problem Relation Age of Onset Heart Mother Heart Father Aneurysm Father Stroke Father other (knee problems) Sister Heart Brother Stroke Brother Stroke Brother No Known Problems Brother No Known Problems Son No Known Problems Daughter Social History Tobacco Use Smoking status: Former Smoker Packs/day: 0.50 Years: 30.00 Pack years: 15.00 Types: Cigarettes Quit date: 04/13/2004 Years since quittin.2 Smokeless tobacco: Never Used Vaping Use Vaping Use: Never used Substance Use Topics Alcohol use: Yes Comment: occs Drug use: No Reviewed current medications, allergies, past medical history, surgical history, family history and social history today. REVIEW OF SYSTEMS All other reviewed and negative other than HPI. HEALTH MAINTENANCE: Reviewed health maintenance issues today and recommended the following in detail. SHINGRIX VACCINE(1 of 2) Never done DTAP,TDAP,TD(1 - Tdap) due on 12/24/1998 [employer]VANCE DIRECTIVE RUTHYdone, has new dpoa forms. VITALS: BP 112/58 Pulse (!) 50 Wt 97.5 kg (215 lb) SpO2 96% BMI 30.85 kg/m Last 4 Encounter Wt Readings: Date: Wt: 07/09/2021 97.5 kg (215 lb) 06/06/2021 93 kg (205 lb) 02/06/2021 94.3 kg (208 lb) 01/24/2021 94.8 kg (209 lb) PHYSICAL EXAMINATION: General appearance: Well appearing, alert, in no acute distress, well-hydrated, well nourished. Skin: Skin color, texture, turgor normal, no suspicious rashes or lesions Head: Normocephalic, no masses, lesions, tenderness or abnormalities Neck: Supple, no adenopathy; thyroid symmetric, normal size, no bruits Lungs: Lungs clear to auscultation. No wheezing, rhonchi, rales Heart: RRR without murmur, gallop, or rubs. No ectopy Abdomen: Normal abdominal exam, Abdomen soft, non-tender. Bowel sounds normal. No masses, organomegaly Extremities: No deformities, edema, skin discoloration, clubbing or cyanosis. Good capillary refill. Musculoskeletal: No joint swelling, deformity, or tenderness Peripheral pulses: Normal ASSESSMENT/PLAN: 1. Parkinson disease (HCC) - ICD9: 332.0, ICD10: G20 (primary diagnosis) - continue to see neuro 2. Cough - ICD9: 786.2, ICD10: R05.9 - refill meds. - OMEPRAZOLE 20 MG CAPSULE,DELAYED RELEASE 3. Primary hypertension - ICD9: 401.9, ICD10: I10 - good control - Continue current medication(s) - Goal of BP <130/80 - AMLODIPINE 2.5 MG TABLET - METOPROLOL SUCCINATE ER 25 MG TABLET,EXTENDED RELEASE 24 HR - FUROSEMIDE 20 MG TABLET 4. CAD in kashia artery - ICD9: 414.01, ICD10: I25.10 - PRAVASTATIN 40 MG TABLET 5. 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 6. Diabetic polyneuropathy associated with type 2 diabetes mellitus (HCC) - ICD9: 250.60, 357.2, ICD10: E11.42 Controlled. - Continue current medications - BLOOD-GLUCOSE METER KIT - BLOOD GLUCOSE TEST STRIPS - LANCETS 7. PIEDAD (obstructive sleep apnea) - ICD9: 327.23, ICD10: G47.33 8. Malignant neoplasm of overlapping sites of bladder (HCC) - ICD9: 188.8, ICD10: C67.8 - per urolgoy 9. Diabetes mellitus with microalbuminuria (HCC) - ICD9: 250.40, 791.0, ICD10: E11.29, R80.9 Controlled. - Continue current medications 10. Malignant neoplasm of prostate (HCC) - ICD9: 185, ICD10: C61 11. Penile cancer (HCC) - ICD9: 187.4, ICD10: C60.9 Eliceo Drummond RTO in six months and prn. documented in this encounter [facility] 2021 Miscellaneous Notes Patient phones requesting refills as follows: Pending Prescriptions Disp Refills CARBIDOPA 25 MG-LEVODOPA 100 MG TABLET 90 tablet 1 Sig: TAKE 1 TABLET 3 TIMES A DAY(TAKE AT BREAKFAST, LUNCH, AND DINNER) STARLA: Yes Please review and advise. Patel Queen documented in this encounter [facility] documented as of this encounter (statuses as of 07/20/2022) [facility]05-29-2021 History of Past illness Narrative* Problem Noted Date Resolved Date Parkinsonian features 08/24/2020 07/20/2022 NSTEMI (non-ST elevated myocardial infarction) 0 06/02/2019 07/20/2022 Overview: NSTEMI, demand ischemia due to acute Influenza A Absolute anemia 09/10/2017 07/09/2021 Overview: Added automatically from request for surgery [id number] Microalbuminuria 09/16/2016 07/20/2022 NAVI (acute kidney injury) 07/23/20162016 Overview: History: CVICU Low UO, significant increase in creatinine. Mild hyponatremia. Assessment: SCR normalizing Plan: Loop stopped. monitor SUMMARY 07/23/2016 07/20/2022 Overview: Indication for hospital admission/procedure: CAD, unstable angina LVEF: 65%, mod LVH RVF: Normal Important/Relevant PMH/PSH: hypertension, dysplipidemia, type II diabetes on oral medications, obesity, former smoking PVD s/p R SFA stent and atherectomy 2013, penile, prostate, and bladder cancers all in remission Preoperative Hospital Course: history of CAD s/p prior PCI to LAD and RCA (1999 and 2000), presented with unstable angina at [facility] -> multivessel CAD. transferred to [facility] for CABG +/- MVR. Given 300mg Plavix load on 07/17 at 11am and aspirin 325mg. EKG with inferior T wave inversions. LHC on 07/17, 70% lesion with severe ISR of proximal LAD stent, 70% ISR lesion of proximal RCA (right dominant), 70% ostial lesion at bifurcations of OMs from AV LCx. His echo at [facility] was reported as LVEF 60%, no RWMA, mild RV dilation, trace TR, moderate to severe MR with MAC. On arrival to [facility], patient is chest pain free and has no complaints. Procedure/Surgeries: 07/21/2016 CABG x3, DODSON to LAD, saphenous vein graft to OM, and saphenous vein graft to the posterolateral branch of the right coronary artery. Airway Difficulty: Grade I - No special instrumentation OR Course: Transient or mild hypotension Pacing wires: No - pulled 07/27/2016 Postoperative Course/General Impression: Issues to communicate at signout: Discharging home today 07/27/2016 - Per Dr. Morales ok to discharge, even though wires were pulled today V-wires pulled 07/27/2016 S/p CABG - on ASA, BB, and statin FVO - at pre-op weight, on RA HTN - SBP 118-140, on BB and restarted PO loop x7days PAD - on ASA DM2 - Following Endo's final recs NAVI - stable Disp: 76yo M from [place], [place]. PT recs home PT/RN - F2F placed. CM aware and following. Will need to follow-up with PCP (called office in attempt to arrange f/u) and Cards. Discharge today 07/27/2016. Pt refused OPD f/u. DISPOSITION AND FOLLOW-UP 07/23/20162016 Overview: 76yo M from [place], [place]. PT recs home PT/RN - F2F placed. CM aware and following. Will need to follow-up with PCP (called office in attempt to arrange f/u) and Cards. Discharge today 07/27/2016. Pt refused OPD f/u. Postprocedural hypotension 07/21/201607/23 Overview: CI 2.3. Low levo dose. Volume and calcium x1 Preop testing 07/20/2016 09/04/2016 Overview: Images from the original note were not included. [facility] Surgeon: Dr. Morales Informed Consent Completed: Yes STS Score: Procedure: MV Replacement + CAB Risk of Mortality: 7.571% Procedure: CAB Only Risk of Mortality: 1.834% CAD: Yes - CAD on Problem List: Yes Is intended procedure a CABG: Yes - is a beta kyle ordered? Yes H & P completed: Yes PA/LAT: Completed CT: Pending MRI: N/A LE US: N/A Cath: Yes - reviewed: Yes Echo:Completed EKG: Completed EF %: 65 PI's: Completed Carotid: Completed Mapping: Pending Dental: Pending PFT's: Completed Recent Labs 07/20/16 0513 WBC 9.04 HB 13.4 HCT 40.7 PLT 182 CREAT 1.04 UA: pending ABO/ABO Confirmed: pending Blood ordered:TSH SA Swab: Yes - results: Pending Anticoagulation: Aspirin; plavix l.d: 07/17 Op Note: N/A Pacemaker Check: N/A Consults: Urology will ne available for hernandez placement in the OR DM: Yes Cardiac Surgical prep: Yes SIGNATURE: Peg Mitchell CNP DATE of SERVICE: 07/20/2016 TIME of SERVICE: 2:53 PM Chest pain 07/17/2016 07/17/2016 Non-rheumatic mitral regurgitation 07/17/2016 07/21/2016 Overview: Suspect severe MR from combination of ischemic MR vs functional MR Outside echo not available for review Intraop no MR Plan: Afterload reduce with nitroglycerin infusion Repeat TTE May consider MVR vs repair at time of [facility] Screening for genitourinary condition 04/25/2016 07/17/2016 documented as of this encounter (statuses as of 07/21/2022) [facility]05-29-2021 History of Past illness Narrative* Problem Noted Date Resolved Date Parkinsonian features 08/24/2020 07/20/2022 NSTEMI (non-ST elevated myocardial infarction) 0 06/02/2019 07/20/2022 Overview: NSTEMI, demand ischemia due to acute Influenza A Absolute anemia 09/10/2017 07/09/2021 Overview: Added automatically from request for surgery [id number] Microalbuminuria 09/16/2016 07/20/2022 NAVI (acute kidney injury) 07/23/20162016 Overview: History: CVICU Low UO, significant increase in creatinine. Mild hyponatremia. Assessment: SCR normalizing Plan: Loop stopped. monitor SUMMARY 07/23/2016 07/20/2022 Overview: Indication for hospital admission/procedure: CAD, unstable angina LVEF: 65%, mod LVH RVF: Normal Important/Relevant PMH/PSH: hypertension, dysplipidemia, type II diabetes on oral medications, obesity, former smoking PVD s/p R SFA stent and atherectomy 2013, penile, prostate, and bladder cancers all in remission Preoperative Hospital Course: history of CAD s/p prior PCI to LAD and RCA (1999 and 2000), presented with unstable angina at [facility] -> multivessel CAD. transferred to [facility] for CABG +/- MVR. Given 300mg Plavix load on 07/17 at 11am and aspirin 325mg. EKG with inferior T wave inversions. LHC on 07/17, 70% lesion with severe ISR of proximal LAD stent, 70% ISR lesion of proximal RCA (right dominant), 70% ostial lesion at bifurcations of OMs from AV LCx. His echo at [facility] was reported as LVEF 60%, no RWMA, mild RV dilation, trace TR, moderate to severe MR with MAC. On arrival to [facility], patient is chest pain free and has no complaints. Procedure/Surgeries: 07/21/2016 CABG x3, DODSON to LAD, saphenous vein graft to OM, and saphenous vein graft to the posterolateral branch of the right coronary artery. Airway Difficulty: Grade I - No special instrumentation OR Course: Transient or mild hypotension Pacing wires: No - pulled 07/27/2016 Postoperative Course/General Impression: Issues to communicate at signout: Discharging home today 07/27/2016 - Per Dr. Morales ok to discharge, even though wires were pulled today V-wires pulled 07/27/2016 S/p CABG - on ASA, BB, and statin FVO - at pre-op weight, on RA HTN - SBP 118-140, on BB and restarted PO loop x7days PAD - on ASA DM2 - Following Endo's final recs NAVI - stable Disp: 76yo M from [place], [place]. PT recs home PT/RN - F2F placed. CM aware and following. Will need to follow-up with PCP (called office in attempt to arrange f/u) and Cards. Discharge today 07/27/2016. Pt refused OPD f/u. DISPOSITION AND FOLLOW-UP 07/23/20162016 Overview: 76yo M from [place], [place]. PT recs home PT/RN - F2F placed. CM aware and following. Will need to follow-up with PCP (called office in attempt to arrange f/u) and Cards. Discharge today 07/27/2016. Pt refused OPD f/u. Postprocedural hypotension 07/21/201607/23 Overview: CI 2.3. Low levo dose. Volume and calcium x1 Preop testing 07/20/2016 09/04/2016 Overview: Images from the original note were not included. [facility] Surgeon: Dr. Morales Informed Consent Completed: Yes STS Score: Procedure: MV Replacement + CAB Risk of Mortality: 7.571% Procedure: CAB Only Risk of Mortality: 1.834% CAD: Yes - CAD on Problem List: Yes Is intended procedure a CABG: Yes - is a beta kyle ordered? Yes H & P completed: Yes PA/LAT: Completed CT: Pending MRI: N/A LE US: N/A Cath: Yes - reviewed: Yes Echo:Completed EKG: Completed EF %: 65 PI's: Completed Carotid: Completed Mapping: Pending Dental: Pending PFT's: Completed Recent Labs 07/20/16 0513 WBC 9.04 HB 13.4 HCT 40.7 PLT 182 CREAT 1.04 UA: pending ABO/ABO Confirmed: pending Blood ordered:TSH SA Swab: Yes - results: Pending Anticoagulation: Aspirin; plavix l.d: 07/17 Op Note: N/A Pacemaker Check: N/A Consults: Urology will ne available for hernandez placement in the OR DM: Yes Cardiac Surgical prep: Yes SIGNATURE: Peg Mitchell CNP DATE of SERVICE: 07/20/2016 TIME of SERVICE: 2:53 PM Chest pain 07/17/2016 07/17/2016 Non-rheumatic mitral regurgitation 07/17/2016 07/21/2016 Overview: Suspect severe MR from combination of ischemic MR vs functional MR Outside echo not available for review Intraop no MR Plan: Afterload reduce with nitroglycerin infusion Repeat TTE May consider MVR vs repair at time of [facility] Screening for genitourinary condition 04/25/2016 07/17/2016 documented as of this encounter (statuses as of 07/22/2022) [facility]05-29-2021 History of Past illness Narrative* Problem Noted Date Resolved Date Parkinsonian features 08/24/2020 07/20/2022 NSTEMI (non-ST elevated myocardial infarction) 0 06/02/2019 07/20/2022 Overview: NSTEMI, demand ischemia due to acute Influenza A Absolute anemia 09/10/2017 07/09/2021 Overview: Added automatically from request for surgery [id number] Microalbuminuria 09/16/2016 07/20/2022 NAVI (acute kidney injury) 07/23/20162016 Overview: History: CVICU Low UO, significant increase in creatinine. Mild hyponatremia. Assessment: SCR normalizing Plan: Loop stopped. monitor SUMMARY 07/23/2016 07/20/2022 Overview: Indication for hospital admission/procedure: CAD, unstable angina LVEF: 65%, mod LVH RVF: Normal Important/Relevant PMH/PSH: hypertension, dysplipidemia, type II diabetes on oral medications, obesity, former smoking PVD s/p R SFA stent and atherectomy 2013, penile, prostate, and bladder cancers all in remission Preoperative Hospital Course: history of CAD s/p prior PCI to LAD and RCA (1999 and 2000), presented with unstable angina at [facility] -> multivessel CAD. transferred to [facility] for CABG +/- MVR. Given 300mg Plavix load on 07/17 at 11am and aspirin 325mg. EKG with inferior T wave inversions. LHC on 07/17, 70% lesion with severe ISR of proximal LAD stent, 70% ISR lesion of proximal RCA (right dominant), 70% ostial lesion at bifurcations of OMs from AV LCx. His echo at [facility] was reported as LVEF 60%, no RWMA, mild RV dilation, trace TR, moderate to severe MR with MAC. On arrival to [facility], patient is chest pain free and has no complaints. Procedure/Surgeries: 07/21/2016 CABG x3, DODSON to LAD, saphenous vein graft to OM, and saphenous vein graft to the posterolateral branch of the right coronary artery. Airway Difficulty: Grade I - No special instrumentation OR Course: Transient or mild hypotension Pacing wires: No - pulled 07/27/2016 Postoperative Course/General Impression: Issues to communicate at signout: Discharging home today 07/27/2016 - Per Dr. Morales ok to discharge, even though wires were pulled today V-wires pulled 07/27/2016 S/p CABG - on ASA, BB, and statin FVO - at pre-op weight, on RA HTN - SBP 118-140, on BB and restarted PO loop x7days PAD - on ASA DM2 - Following Endo's final recs NAVI - stable Disp: 76yo M from [place], [place]. PT recs home PT/RN - F2F placed. CM aware and following. Will need to follow-up with PCP (called office in attempt to arrange f/u) and Cards. Discharge today 07/27/2016. Pt refused OPD f/u. DISPOSITION AND FOLLOW-UP 07/23/20162016 Overview: 76yo M from [place]. PT recs home PT/RN - F2F placed. CM aware and following. Will need to follow-up with PCP (called office in attempt to arrange f/u) and Cards. Discharge today 07/27/2016. Pt refused OPD f/u. Postprocedural hypotension 07/21/201607/23 Overview: CI 2.3. Low levo dose. Volume and calcium x1 Preop testing 07/20/2016 09/04/2016 Overview: Images from the original note were not included. [facility] Surgeon: Dr. Morales Informed Consent Completed: Yes STS Score: Procedure: MV Replacement + CAB Risk of Mortality: 7.571% Procedure: CAB Only Risk of Mortality: 1.834% CAD: Yes - CAD on Problem List: Yes Is intended procedure a CABG: Yes - is a beta kyle ordered? Yes H & P completed: Yes PA/LAT: Completed CT: Pending MRI: N/A LE US: N/A Cath: Yes - reviewed: Yes Echo:Completed EKG: Completed EF %: 65 PI's: Completed Carotid: Completed Mapping: Pending Dental: Pending PFT's: Completed Recent Labs 07/20/16 0513 WBC 9.04 HB 13.4 HCT 40.7 PLT 182 CREAT 1.04 UA: pending ABO/ABO Confirmed: pending Blood ordered:TSH SA Swab: Yes - results: Pending Anticoagulation: Aspirin; plavix l.d: 4/21 Op Note: N/A Pacemaker Check: N/A Consults: Urology will ne available for hernandez placement in the OR DM: Yes Cardiac Surgical prep: Yes SIGNATURE: Peg Mitchell CNP DATE of SERVICE: 07/20/2016 TIME of SERVICE: 2:53 PM Chest pain 07/17/2016 07/17/2016 Non-rheumatic mitral regurgitation 07/17/2016 07/21/2016 Overview: Suspect severe MR from combination of ischemic MR vs functional MR Outside echo not available for review Intraop no MR Plan: Afterload reduce with nitroglycerin infusion Repeat TTE May consider MVR vs repair at time of [facility] Screening for genitourinary condition 04/25/2016 07/17/2016 documented as of this encounter (statuses as of 08/07/2022) [facility]-29-2021 History of Past illness Narrative* Problem Noted Date Resolved Date Parkinsonian features 08/24/2020 07/20/2022 NSTEMI (non-ST elevated myocardial infarction) 0 06/02/2019 07/20/2022 Overview: NSTEMI, demand ischemia due to acute Influenza A Absolute anemia 09/10/2017 07/09/2021 Overview: Added automatically from request for surgery [id number] Microalbuminuria 09/16/2016 07/20/2022 NAVI (acute kidney injury) 07/23/20162016 Overview: History: CVICU Low UO, significant increase in creatinine. Mild hyponatremia. Assessment: SCR normalizing Plan: Loop stopped. monitor SUMMARY 07/23/2016 07/20/2022 Overview: Indication for hospital admission/procedure: CAD, unstable angina LVEF: 65%, mod LVH RVF: Normal Important/Relevant PMH/PSH: hypertension, dysplipidemia, type II diabetes on oral medications, obesity, former smoking PVD s/p R SFA stent and atherectomy 2013, penile, prostate, and bladder cancers all in remission Preoperative Hospital Course: history of CAD s/p prior PCI to LAD and RCA (1999 and 2000), presented with unstable angina at [facility] -> multivessel CAD. transferred to [facility] for CABG +/- MVR. Given 300mg Plavix load on 07/17 at 11am and aspirin 325mg. EKG with inferior T wave inversions. LHC on 07/17, 70% lesion with severe ISR of proximal LAD stent, 70% ISR lesion of proximal RCA (right dominant), 70% ostial lesion at bifurcations of OMs from AV LCx. His echo at [facility] was reported as LVEF 60%, no RWMA, mild RV dilation, trace TR, moderate to severe MR with MAC. On arrival to [facility], patient is chest pain free and has no complaints. Procedure/Surgeries: 07/21/2016 CABG x3, DODSON to LAD, saphenous vein graft to OM, and saphenous vein graft to the posterolateral branch of the right coronary artery. Airway Difficulty: Grade I - No special instrumentation OR Course: Transient or mild hypotension Pacing wires: No - pulled 07/27/2016 Postoperative Course/General Impression: Issues to communicate at signout: Discharging home today 07/27/2016 - Per Dr. Morales ok to discharge, even though wires were pulled today V-wires pulled 07/27/2016 S/p CABG - on ASA, BB, and statin FVO - at pre-op weight, on RA HTN - SBP 118-140, on BB and restarted PO loop x7days PAD - on ASA DM2 - Following Endo's final recs NAVI - stable Disp: 76yo M from [place], [place]. PT recs home PT/RN - F2F placed. CM aware and following. Will need to follow-up with PCP (called office in attempt to arrange f/u) and Cards. Discharge today 07/27/2016. Pt refused OPD f/u. DISPOSITION AND FOLLOW-UP 07/23/20162016 Overview: 76yo M from [place]. PT recs home PT/RN - F2F placed. CM aware and following. Will need to follow-up with PCP (called office in attempt to arrange f/u) and Cards. Discharge today 07/27/2016. Pt refused OPD f/u. Postprocedural hypotension 07/21/201607/23 Overview: CI 2.3. Low levo dose. Volume and calcium x1 Preop testing 07/20/2016 09/04/2016 Overview: Images from the original note were not included. [facility] Surgeon: Dr. Morales Informed Consent Completed: Yes STS Score: Procedure: MV Replacement + CAB Risk of Mortality: 7.571% Procedure: CAB Only Risk of Mortality: 1.834% CAD: Yes - CAD on Problem List: Yes Is intended procedure a CABG: Yes - is a beta kyle ordered? Yes H & P completed: Yes PA/LAT: Completed CT: Pending MRI: N/A LE US: N/A Cath: Yes - reviewed: Yes Echo:Completed EKG: Completed EF %: 65 PI's: Completed Carotid: Completed Mapping: Pending Dental: Pending PFT's: Completed Recent Labs 07/20/16 0513 WBC 9.04 HB 13.4 HCT 40.7 PLT 182 CREAT 1.04 UA: pending ABO/ABO Confirmed: pending Blood ordered:TSH SA Swab: Yes - results: Pending Anticoagulation: Aspirin; plavix l.d: 07/17 Op Note: N/A Pacemaker Check: N/A Consults: Urology will ne available for hernandez placement in the OR DM: Yes Cardiac Surgical prep: Yes SIGNATURE: Peg Mitchell CNP DATE of SERVICE: 07/20/2016 TIME of SERVICE: 2:53 PM Chest pain 07/17/2016 07/17/2016 Non-rheumatic mitral regurgitation 07/17/2016 07/21/2016 Overview: Suspect severe MR from combination of ischemic MR vs functional MR Outside echo not available for review Intraop no MR Plan: Afterload reduce with nitroglycerin infusion Repeat TTE May consider MVR vs repair at time of OHS Screening for genitourinary condition 04/25/2016 07/17/2016 documented as of this encounter (statuses as of 09/25/2022) [facility]05-29-2021 History of Past illness Narrative* Problem Noted Date Diagnosed Date Resolved Date Parkinsonian features 08/24/20202022 NSTEMI (non-ST elevated myoc ardial infarction) 06/02/2019 07/20/2022 Overview: NSTEMI, demand ischemia due to acute Influenza A Absolute anemia 09/10/2017 07/09/2021 Overview: Added automatically from request for surgery [id number] Microalbuminuria 09/16/2016 07/20/2022 NAVI (acute kidney injury) 07/23/2016 Overview: History: CVICU Low UO, significant increase in creatinine. Mild hyponatremia. Assessment: SCR normalizing Plan: Loop stopped. monitor SUMMARY 07/23/2016 07/20/2022 Overview: Indication for hospital admission/procedure: CAD, unstable angina LVEF: 65%, mod LVH RVF: Normal Important/Relevant PMH/PSH: hypertension, dysplipidemia, type II diabetes on oral medications, obesity, former smoking PVD s/p R SFA stent and atherectomy 2013, penile, prostate, and bladder cancers all in remission Preoperative Hospital Course: history of CAD s/p prior PCI to LAD and RCA (1999 and 2000), presented with unstable angina at [facility] -> multivessel CAD. transferred to [facility] for CABG +/- MVR. Given 300mg Plavix load on 07/17 at 11am and aspirin 325mg. EKG with inferior T wave inversions. C on 07/17, 70% lesion with severe ISR of proximal LAD stent, 70% ISR lesion of proximal RCA (right dominant), 70% ostial lesion at bifurcations of OMs from AV LCx. His echo at [facility] was reported as LVEF 60%, no RWMA, mild RV dilation, trace TR, moderate to severe MR with MAC. On arrival to [facility], patient is chest pain free and has no complaints. Procedure/Surgeries: 07/21/2016 CABG x3, DODSON to LAD, saphenous vein graft to OM, and saphenous vein graft to the posterolateral branch of the right coronary artery. Airway Difficulty: Grade I - No special instrumentation OR Course: Transient or mild hypotension Pacing wires: No - pulled 07/27/2016 Postoperative Course/General Impression: Issues to communicate at signout: Discharging home today 07/27/2016 - Per Dr. Morales ok to discharge, even though wires were pulled today V-wires pulled 07/27/2016 S/p CABG - on ASA, BB, and statin FVO - at pre-op weight, on RA HTN - SBP 118-140, on BB and restarted PO loop x7days PAD - on ASA DM2 - Following Endo's final recs NAVI - stable Disp: 76yo M from [place], [place]. PT recs home PT/RN - F2F placed. CM aware and following. Will need to follow-up with PCP (called office in attempt to arrange f/u) and Cards. Discharge today 07/27/2016. Pt refused OPD f/u. DISPOSITION AND FOLLOW-UP 07/23/2016 Overview: 76yo M from [place], [place]. PT recs home PT/RN - F2F placed. CM aware and following. Will need to follow-up with PCP (called office in attempt to arrange f/u) and Cards. Discharge today 07/27/2016. Pt refused OPD f/u. Postprocedural hypotension 07/21/2016 0 07/23/2016 Overview: CI 2.3. Low levo dose. Volume and calcium x1 Preop testing 07/20/2016 09/04/2016 Overview: Images from the original note were not included. [facility] Surgeon: Dr. Morales Informed Consent Completed: Yes STS Score: Procedure: MV Replacement + CAB Risk of Mortality: 7.571% Procedure: CAB Only Risk of Mortality: 1.834% CAD: Yes - CAD on Problem List: Yes Is intended procedure a CABG: Yes - is a beta kyle ordered? Yes H & P completed: Yes PA/LAT: Completed CT: Pending MRI: N/A LE US: N/A Cath: Yes - reviewed: Yes Echo:Completed EKG: Completed EF %: 65 PI's: Completed Carotid: Completed Mapping: Pending Dental: Pending PFT's: Completed Recent Labs 07/20/16 0513 WBC 9.04 HB 13.4 HCT 40.7 PLT 182 CREAT 1.04 UA: pending ABO/ABO Confirmed: pending Blood ordered:TSH SA Swab: Yes - results: Pending Anticoagulation: Aspirin; plavix l.d: 07/17 Op Note: N/A Pacemaker Check: N/A Consults: Urology will ne available for hernandez placement in the OR DM: Yes Cardiac Surgical prep: Yes SIGNATURE: Peg Mitchell CNP DATE of SERVICE: 07/20/2016 TIME of SERVICE: 2:53 PM Chest pain 07/17/2016 07/17/2016 Non-rheumatic mitral regurgitation 07/17/2016 07/21/2016 Overview: Suspect severe MR from combination of ischemic MR vs functional MR Outside echo not available for review Intraop no MR Plan: Afterload reduce with nitroglycerin infusion Repeat TTE May consider MVR vs repair at time of OHS Screening for genitourinary condition 04/25/2016 07/17/2016 documented as of this encounter (statuses as of 10/10/2022) [facility]05-29-2021 History of Past illness Narrative* Problem Noted Date Diagnosed Date Resolved Date 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 Mild hyponatremia. Assessment: SCR normalizing Plan: Loop stopped. monitor SUMMARY 07/23/2016 07/20/2022 Overview: Indication for hospital admission/procedure: CAD, unstable angina LVEF: 65%, mod LVH RVF: Normal Important/Relevant PMH/PSH: hypertension, dysplipidemia, type II diabetes on oral medications, obesity, former smoking PVD s/p R SFA stent and atherectomy 2013, penile, prostate, and bladder cancers all in remission Preoperative Hospital Course: history of CAD s/p prior PCI to LAD and RCA (1999 and 2000), presented with unstable angina at [facility] -> multivessel CAD. transferred to [facility] for CABG +/- MVR. Given 300mg Plavix load on 07/17 at 11am and aspirin 325mg. EKG with inferior T wave inversions. LHC on 07/17, 70% lesion with severe ISR of proximal LAD stent, 70% ISR lesion of proximal RCA (right dominant), 70% ostial lesion at bifurcations of OMs from AV LCx. His echo at [facility] was reported as LVEF 60%, no RWMA, mild RV dilation, trace TR, moderate to severe MR with MAC. On arrival to [facility], patient is chest pain free and has no complaints. Procedure/Surgeries: 07/21/2016 CABG x3, DODSON to LAD, saphenous vein graft to OM, and saphenous vein graft to the posterolateral branch of the right coronary artery. Airway Difficulty: Grade I - No special instrumentation OR Course: Transient or mild hypotension Pacing wires: No - pulled 07/27/2016 Postoperative Course/General Impression: Issues to communicate at signout: Discharging home today 07/27/2016 - Per Dr. Morales ok to discharge, even though wires were pulled today V-wires pulled 07/27/2016 S/p CABG - on ASA, BB, and statin FVO - at pre-op weight, on RA HTN - SBP 118-140, on BB and restarted PO loop x7days PAD - on ASA DM2 - Following Endo's final recs NAVI - stable Disp: 76yo M from [place], [place]. PT recs home PT/RN - F2F placed. CM aware and following. Will need to follow-up with PCP (called office in attempt to arrange f/u) and Cards. Discharge today 07/27/2016. Pt refused OPD f/u. DISPOSITION AND FOLLOW-UP 07/23/2016 Overview: 76yo M from [place], [place]. PT recs home PT/RN - F2F placed. CM aware and following. Will need to follow-up with PCP (called office in attempt to arrange f/u) and Cards. Discharge today 07/27/2016. Pt refused OPD f/u. Postprocedural hypotension 07/21/2016 0 07/23/2016 Overview: CI 2.3. Low levo dose. Volume and calcium x1 Preop testing 07/20/2016 09/04/2016 Overview: Images from the original note were not included. [facility] Surgeon: Dr. Morales Informed Consent Completed: Yes STS Score: Procedure: MV Replacement + CAB Risk of Mortality: 7.571% Procedure: CAB Only Risk of Mortality: 1.834% CAD: Yes - CAD on Problem List: Yes Is intended procedure a CABG: Yes - is a beta kyle ordered? Yes H & P completed: Yes PA/LAT: Completed CT: Pending MRI: N/A LE US: N/A Cath: Yes - reviewed: Yes Echo:Completed EKG: Completed EF %: 65 PI's: Completed Carotid: Completed Mapping: Pending Dental: Pending PFT's: Completed Recent Labs 07/20/16 0513 WBC 9.04 HB 13.4 HCT 40.7 PLT 182 CREAT 1.04 UA: pending ABO/ABO Confirmed: pending Blood ordered:TSH SA Swab: Yes - results: Pending Anticoagulation: Aspirin; plavix l.d: 07/17 Op Note: N/A Pacemaker Check: N/A Consults: Urology will ne available for hernandez placement in the OR DM: Yes Cardiac Surgical prep: Yes SIGNATURE: Peg Mitchell CNP DATE of SERVICE: 07/20/2016 TIME of SERVICE: 2:53 PM Chest pain 07/17/2016 07/17/2016 Non-rheumatic mitral regurgitation 07/17/2016 07/21/2016 Overview: Suspect severe MR from combination of ischemic MR vs functional MR Outside echo not available for review Intraop no MR Plan: Afterload reduce with nitroglycerin infusion Repeat TTE May consider MVR vs repair at time of OHS Screening for genitourinary condition 04/25/2016 07/17/2016 documented as of this encounter (statuses as of 10/12/2022) [facility]05-29-2021 History of Past illness Narrative* Problem Noted Date Diagnosed Date Resolved Date 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 Mild hyponatremia. Assessment: SCR normalizing Plan: Loop stopped. monitor SUMMARY 07/23/2016 07/20/2022 Overview: Indication for hospital admission/procedure: CAD, unstable angina LVEF: 65%, mod LVH RVF: Normal Important/Relevant PMH/PSH: hypertension, dysplipidemia, type II diabetes on oral medications, obesity, former smoking PVD s/p R SFA stent and atherectomy 2013, penile, prostate, and bladder cancers all in remission Preoperative Hospital Course: history of CAD s/p prior PCI to LAD and RCA (1999 and 2000), presented with unstable angina at [facility] -> multivessel CAD. transferred to [facility] for CABG +/- MVR. Given 300mg Plavix load on 07/17 at 11am and aspirin 325mg. EKG with inferior T wave inversions. [facility] on 07/17, 70% lesion with severe ISR of proximal LAD stent, 70% ISR lesion of proximal RCA (right dominant), 70% ostial lesion at bifurcations of OMs from AV LCx. His echo at [facility] was reported as LVEF 60%, no RWMA, mild RV dilation, trace TR, moderate to severe MR with MAC. On arrival to [facility], patient is chest pain free and has no complaints. Procedure/Surgeries: 07/21/2016 CABG x3, DODSON to LAD, saphenous vein graft to OM, and saphenous vein graft to the posterolateral branch of the right coronary artery. Airway Difficulty: Grade I - No special instrumentation OR Course: Transient or mild hypotension Pacing wires: No - pulled 07/27/2016 Postoperative Course/General Impression: Issues to communicate at signout: Discharging home today 07/27/2016 - Per Dr. Bakaeen ok to discharge, even though wires were pulled today V-wires pulled 07/27/2016 S/p CABG - on ASA, BB, and statin FVO - at pre-op weight, on RA HTN - SBP 118-140, on BB and restarted PO loop x7days PAD - on ASA DM2 - Following Endo's final recs NAVI - stable Disp: 76yo M from [place], [place]. PT recs home PT/RN - F2F placed. CM aware and following. Will need to follow-up with PCP (called office in attempt to arrange f/u) and Cards. Discharge today 07/27/2016. Pt refused OPD f/u. DISPOSITION AND FOLLOW-UP 07/23/2016 Overview: 76yo M from [place], [place]. PT recs home PT/RN - F2F placed. CM aware and following. Will need to follow-up with PCP (called office in attempt to arrange f/u) and Cards. Discharge today 07/27/2016. Pt refused OPD f/u. Postprocedural hypotension 07/21/2016 0 07/23/2016 Overview: CI 2.3. Low levo dose. Volume and calcium x1 Preop testing 07/20/2016 09/04/2016 Overview: Images from the original note were not included. [facility] Surgeon: Dr. Morales Informed Consent Completed: Yes STS Score: Procedure: MV Replacement + CAB Risk of Mortality: 7.571% Procedure: CAB Only Risk of Mortality: 1.834% CAD: Yes - CAD on Problem List: Yes Is intended procedure a CABG: Yes - is a beta kyle ordered? Yes H & P completed: Yes PA/LAT: Completed CT: Pending MRI: N/A LE US: N/A Cath: Yes - reviewed: Yes Echo:Completed EKG: Completed EF %: 65 PI's: Completed Carotid: Completed Mapping: Pending Dental: Pending PFT's: Completed Recent Labs 07/20/16 0513 WBC 9.04 HB 13.4 HCT 40.7 PLT 182 CREAT 1.04 UA: pending ABO/ABO Confirmed: pending Blood ordered:TSH SA Swab: Yes - results: Pending Anticoagulation: Aspirin; plavix l.d: 07/17 Op Note: N/A Pacemaker Check: N/A Consults: Urology will ne available for hernandez placement in the OR DM: Yes Cardiac Surgical prep: Yes SIGNATURE: Peg Mitchell CNP DATE of SERVICE: 07/20/2016 TIME of SERVICE: 2:53 PM Chest pain 07/17/2016 07/17/2016 Non-rheumatic mitral regurgitation 07/17/2016 07/21/2016 Overview: Suspect severe MR from combination of ischemic MR vs functional MR Outside echo not available for review Intraop no MR Plan: Afterload reduce with nitroglycerin infusion Repeat TTE May consider MVR vs repair at time of OHS Screening for genitourinary condition 04/25/2016 07/17/2016 documented as of this encounter (statuses as of 10/12/2022) [facility]-29-2021 History of Past illness Narrative* Problem Noted Date Diagnosed Date Resolved Date 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 Mild hyponatremia. Assessment: SCR normalizing Plan: Loop stopped. monitor SUMMARY 07/23/2016 07/20/2022 Overview: Indication for hospital admission/procedure: CAD, unstable angina LVEF: 65%, mod LVH RVF: Normal Important/Relevant PMH/PSH: hypertension, dysplipidemia, type II diabetes on oral medications, obesity, former smoking PVD s/p R SFA stent and atherectomy 2014, penile, prostate, and bladder cancers all in remission Preoperative Hospital Course: history of CAD s/p prior PCI to LAD and RCA (1999 and 2000), presented with unstable angina at [facility] -> multivessel CAD. transferred to [facility] for CABG +/- MVR. Given 300mg Plavix load on 07/17 at 11am and aspirin 325mg. EKG with inferior T wave inversions. LHC on 07/17, 70% lesion with severe ISR of proximal LAD stent, 70% ISR lesion of proximal RCA (right dominant), 70% ostial lesion at bifurcations of OMs from AV LCx. His echo at [facility] was reported as LVEF 60%, no RWMA, mild RV dilation, trace TR, moderate to severe MR with MAC. On arrival to [facility], patient is chest pain free and has no complaints. Procedure/Surgeries: 07/21/2016 CABG x3, DODSON to LAD, saphenous vein graft to OM, and saphenous vein graft to the posterolateral branch of the right coronary artery. Airway Difficulty: Grade I - No special instrumentation OR Course: Transient or mild hypotension Pacing wires: No - pulled 07/27/2016 Postoperative Course/General Impression: Issues to communicate at signout: Discharging home today 07/27/2016 - Per Dr. Morales ok to discharge, even though wires were pulled today V-wires pulled 07/27/2016 S/p CABG - on ASA, BB, and statin FVO - at pre-op weight, on RA HTN - SBP 118-140, on BB and restarted PO loop x7days PAD - on ASA DM2 - Following Endo's final recs NAVI - stable Disp: 76yo M from [place], [place]. PT recs home PT/RN - F2F placed. CM aware and following. Will need to follow-up with PCP (called office in attempt to arrange f/u) and Cards. Discharge today 07/27/2016. Pt refused OPD f/u. DISPOSITION AND FOLLOW-UP 07/23/2016 Overview: 76yo M from [place]. PT recs home PT/RN - F2F placed. CM aware and following. Will need to follow-up with PCP (called office in attempt to arrange f/u) and Cards. Discharge today 07/27/2016. Pt refused OPD f/u. Postprocedural hypotension 07/21/2016 0 07/23/2016 Overview: CI 2.3. Low levo dose. Volume and calcium x1 Preop testing 07/20/2016 09/04/2016 Overview: Images from the original note were not included. [facility] Surgeon: Dr. Morales Informed Consent Completed: Yes STS Score: Procedure: MV Replacement + CAB Risk of Mortality: 7.571% Procedure: CAB Only Risk of Mortality: 1.834% CAD: Yes - CAD on Problem List: Yes Is intended procedure a CABG: Yes - is a beta kyle ordered? Yes H & P completed: Yes PA/LAT: Completed CT: Pending MRI: N/A LE US: N/A Cath: Yes - reviewed: Yes Echo:Completed EKG: Completed EF %: 65 PI's: Completed Carotid: Completed Mapping: Pending Dental: Pending PFT's: Completed Recent Labs 07/20/16 0513 WBC 9.04 HB 13.4 HCT 40.7 PLT 182 CREAT 1.04 UA: pending ABO/ABO Confirmed: pending Blood ordered:TSH SA Swab: Yes - results: Pending Anticoagulation: Aspirin; plavix l.d: 07/17 Op Note: N/A Pacemaker Check: N/A Consults: Urology will ne available for hernandez placement in the OR DM: Yes Cardiac Surgical prep: Yes SIGNATURE: Peg Mitchell CNP DATE of SERVICE: 07/20/2016 TIME of SERVICE: 2:53 PM Chest pain 07/17/2016 07/17/2016 Non-rheumatic mitral regurgitation 07/17/2016 07/21/2016 Overview: Suspect severe MR from combination of ischemic MR vs functional MR Outside echo not available for review Intraop no MR Plan: Afterload reduce with nitroglycerin infusion Repeat TTE May consider MVR vs repair at time of OHS Screening for genitourinary condition 04/25/2016 07/17/2016 documented as of this encounter (statuses as of 10/13/2022) [facility]-29-2021 History of Past illness Narrative* Problem Noted Date Diagnosed Date Resolved Date 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 Mild hyponatremia. Assessment: SCR normalizing Plan: Loop stopped. monitor SUMMARY 07/23/2016 07/20/2022 Overview: Indication for hospital admission/procedure: CAD, unstable angina LVEF: 65%, mod LVH RVF: Normal Important/Relevant PMH/PSH: hypertension, dysplipidemia, type II diabetes on oral medications, obesity, former smoking PVD s/p R SFA stent and atherectomy 2013, penile, prostate, and bladder cancers all in remission Preoperative Hospital Course: history of CAD s/p prior PCI to LAD and RCA (1999 and 2000), presented with unstable angina at [facility] -> multivessel CAD. transferred to [facility] for CABG +/- MVR. Given 300mg Plavix load on 07/17 at 11am and aspirin 325mg. EKG with inferior T wave inversions. LHC on 07/17, 70% lesion with severe ISR of proximal LAD stent, 70% ISR lesion of proximal RCA (right dominant), 70% ostial lesion at bifurcations of OMs from AV LCx. His echo at [facility] was reported as LVEF 60%, no RWMA, mild RV dilation, trace TR, moderate to severe MR with MAC. On arrival to [facility], patient is chest pain free and has no complaints. Procedure/Surgeries: 07/21/2016 CABG x3, DODSON to LAD, saphenous vein graft to OM, and saphenous vein graft to the posterolateral branch of the right coronary artery. Airway Difficulty: Grade I - No special instrumentation OR Course: Transient or mild hypotension Pacing wires: No - pulled 07/27/2016 Postoperative Course/General Impression: Issues to communicate at signout: Discharging home today 07/27/2016 - Per Dr. Morales ok to discharge, even though wires were pulled today V-wires pulled 07/27/2016 S/p CABG - on ASA, BB, and statin FVO - at pre-op weight, on RA HTN - SBP 118-140, on BB and restarted PO loop x7days PAD - on ASA DM2 - Following Endo's final recs NAVI - stable Disp: 76yo M from [place], [place]. PT recs home PT/RN - F2F placed. CM aware and following. Will need to follow-up with PCP (called office in attempt to arrange f/u) and Cards. Discharge today 07/27/2016. Pt refused OPD f/u. DISPOSITION AND FOLLOW-UP 07/23/2016 Overview: 76yo M from [place]. PT recs home PT/RN - F2F placed. CM aware and following. Will need to follow-up with PCP (called office in attempt to arrange f/u) and Cards. Discharge today 07/27/2016. Pt refused OPD f/u. Postprocedural hypotension 07/21/2016 0 07/23/2016 Overview: CI 2.3. Low levo dose. Volume and calcium x1 Preop testing 07/20/2016 09/04/2016 Overview: Images from the original note were not included. [facility] Surgeon: Dr. Morales Informed Consent Completed: Yes STS Score: Procedure: MV Replacement + CAB Risk of Mortality: 7.571% Procedure: CAB Only Risk of Mortality: 1.834% CAD: Yes - CAD on Problem List: Yes Is intended procedure a CABG: Yes - is a beta kyle ordered? Yes H & P completed: Yes PA/LAT: Completed CT: Pending MRI: N/A LE US: N/A Cath: Yes - reviewed: Yes Echo:Completed EKG: Completed EF %: 65 PI's: Completed Carotid: Completed Mapping: Pending Dental: Pending PFT's: Completed Recent Labs 07/20/16 0513 WBC 9.04 HB 13.4 HCT 40.7 PLT 182 CREAT 1.04 UA: pending ABO/ABO Confirmed: pending Blood ordered:TSH SA Swab: Yes - results: Pending Anticoagulation: Aspirin; plavix l.d: 07/17 Op Note: N/A Pacemaker Check: N/A Consults: Urology will ne available for hernandez placement in the OR DM: Yes Cardiac Surgical prep: Yes SIGNATURE: Peg Mitchell CNP DATE of SERVICE: 07/20/2016 TIME of SERVICE: 2:53 PM Chest pain 07/17/2016 07/17/2016 Non-rheumatic mitral regurgitation 07/17/2016 07/21/2016 Overview: Suspect severe MR from combination of ischemic MR vs functional MR Outside echo not available for review Intraop no MR Plan: Afterload reduce with nitroglycerin infusion Repeat TTE May consider MVR vs repair at time of OHS Screening for genitourinary condition 04/25/2016 07/17/2016 documented as of this encounter (statuses as of 10/22/2022) [facility]-2021 History of Past illness Narrative* Problem Noted Date Diagnosed Date Resolved Date 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 Mild hyponatremia. Assessment: SCR normalizing Plan: Loop stopped. monitor SUMMARY 07/23/2016 07/20/2022 Overview: Indication for hospital admission/procedure: CAD, unstable angina LVEF: 65%, mod LVH RVF: Normal Important/Relevant PMH/PSH: hypertension, dysplipidemia, type II diabetes on oral medications, obesity, former smoking PVD s/p R SFA stent and atherectomy 2014, penile, prostate, and bladder cancers all in remission Preoperative Hospital Course: history of CAD s/p prior PCI to LAD and RCA (1999 and 2000), presented with unstable angina at [facility] -> multivessel CAD. transferred to [facility] for CABG +/- MVR. Given 300mg Plavix load on 07/17 at 11am and aspirin 325mg. EKG with inferior T wave inversions. LHC on 07/17, 70% lesion with severe ISR of proximal LAD stent, 70% ISR lesion of proximal RCA (right dominant), 70% ostial lesion at bifurcations of OMs from AV LCx. His echo at [facility] was reported as LVEF 60%, no RWMA, mild RV dilation, trace TR, moderate to severe MR with MAC. On arrival to [facility], patient is chest pain free and has no complaints. Procedure/Surgeries: 07/21/2016 CABG x3, DODSON to LAD, saphenous vein graft to OM, and saphenous vein graft to the posterolateral branch of the right coronary artery. Airway Difficulty: Grade I - No special instrumentation OR Course: Transient or mild hypotension Pacing wires: No - pulled 07/27/2016 Postoperative Course/General Impression: Issues to communicate at signout: Discharging home today 07/27/2016 - Per Dr. Morales ok to discharge, even though wires were pulled today V-wires pulled 07/27/2016 S/p CABG - on ASA, BB, and statin FVO - at pre-op weight, on RA HTN - SBP 118-140, on BB and restarted PO loop x7days PAD - on ASA DM2 - Following Endo's final recs NAVI - stable Disp: 76yo M from [place], [place]. PT recs home PT/RN - F2F placed. CM aware and following. Will need to follow-up with PCP (called office in attempt to arrange f/u) and Cards. Discharge today 07/27/2016. Pt refused OPD f/u. DISPOSITION AND FOLLOW-UP 07/23/2016 Overview: 76yo M from [place], [place]. PT recs home PT/RN - F2F placed. CM aware and following. Will need to follow-up with PCP (called office in attempt to arrange f/u) and Cards. Discharge today 07/27/2016. Pt refused OPD f/u. Postprocedural hypotension 07/21/2016 0 07/23/2016 Overview: CI 2.3. Low levo dose. Volume and calcium x1 Preop testing 07/20/2016 09/04/2016 Overview: Images from the original note were not included. [facility] Surgeon: Dr. Morales Informed Consent Completed: Yes STS Score: Procedure: MV Replacement + CAB Risk of Mortality: 7.571% Procedure: CAB Only Risk of Mortality: 1.834% CAD: Yes - CAD on Problem List: Yes Is intended procedure a CABG: Yes - is a beta kyle ordered? Yes H & P completed: Yes PA/LAT: Completed CT: Pending MRI: N/A LE US: N/A Cath: Yes - reviewed: Yes Echo:Completed EKG: Completed EF %: 65 PI's: Completed Carotid: Completed Mapping: Pending Dental: Pending PFT's: Completed Recent Labs 07/20/16 0513 WBC 9.04 HB 13.4 HCT 40.7 PLT 182 CREAT 1.04 UA: pending ABO/ABO Confirmed: pending Blood ordered:TSH SA Swab: Yes - results: Pending Anticoagulation: Aspirin; plavix l.d: 07/17 Op Note: N/A Pacemaker Check: N/A Consults: Urology will ne available for hernandez placement in the OR DM: Yes Cardiac Surgical prep: Yes SIGNATURE: Peg Mitchell CNP DATE of SERVICE: 07/20/2016 TIME of SERVICE: 2:53 PM Chest pain 07/17/2016 07/17/2016 Non-rheumatic mitral regurgitation 07/17/2016 07/21/2016 Overview: Suspect severe MR from combination of ischemic MR vs functional MR Outside echo not available for review Intraop no MR Plan: Afterload reduce with nitroglycerin infusion Repeat TTE May consider MVR vs repair at time of OHS Screening for genitourinary condition 04/25/2016 07/17/2016 documented as of this encounter (statuses as of 10/28/2022) [facility]05-29-2021 History of Past illness Narrative* Problem Noted Date Diagnosed Date Resolved Date Parkinsonian features 08/24/20202022 NSTEMI (non-ST elevated myoc ardial infarction) 06/02/2019 07/20/2022 Overview: NSTEMI, demand ischemia due to acute Influenza A Absolute anemia 09/10/2017 07/09/2021 Overview: Added automatically from request for surgery [id number] Microalbuminuria 09/16/2016 07/20/2022 NAVI (acute kidney injury) 07/23/2016 Overview: History: CVICU Low UO, significant increase in creatinine. Mild hyponatremia. Assessment: SCR normalizing Plan: Loop stopped. monitor SUMMARY 07/23/2016 07/20/2022 Overview: Indication for hospital admission/procedure: CAD, unstable angina LVEF: 65%, mod LVH RVF: Normal Important/Relevant PMH/PSH: hypertension, dysplipidemia, type II diabetes on oral medications, obesity, former smoking PVD s/p R SFA stent and atherectomy 2013, penile, prostate, and bladder cancers all in remission Preoperative Hospital Course: history of CAD s/p prior PCI to LAD and RCA (1999 and 2000), presented with unstable angina at [facility] -> multivessel CAD. transferred to [facility] for CABG +/- MVR. Given 300mg Plavix load on 07/17 at 11am and aspirin 325mg. EKG with inferior T wave inversions. [facility] on 07/17, 70% lesion with severe ISR of proximal LAD stent, 70% ISR lesion of proximal RCA (right dominant), 70% ostial lesion at bifurcations of OMs from AV LCx. His echo at [facility] was reported as LVEF 60%, no RWMA, mild RV dilation, trace TR, moderate to severe MR with MAC. On arrival to [facility], patient is chest pain free and has no complaints. Procedure/Surgeries: 07/21/2016 CABG x3, DODSON to LAD, saphenous vein graft to OM, and saphenous vein graft to the posterolateral branch of the right coronary artery. Airway Difficulty: Grade I - No special instrumentation OR Course: Transient or mild hypotension Pacing wires: No - pulled 07/27/2016 Postoperative Course/General Impression: Issues to communicate at signout: Discharging home today 07/27/2016 - Per Dr. Morales ok to discharge, even though wires were pulled today V-wires pulled 07/27/2016 S/p CABG - on ASA, BB, and statin FVO - at pre-op weight, on RA HTN - SBP 118-140, on BB and restarted PO loop x7days PAD - on ASA DM2 - Following Endo's final recs NAVI - stable Disp: 76yo M from [place], [place]. PT recs home PT/RN - F2F placed. CM aware and following. Will need to follow-up with PCP (called office in attempt to arrange f/u) and Cards. Discharge today 07/27/2016. Pt refused OPD f/u. DISPOSITION AND FOLLOW-UP 07/23/2016 Overview: 76yo M from [place], [place]. PT recs home PT/RN - F2F placed. CM aware and following. Will need to follow-up with PCP (called office in attempt to arrange f/u) and Cards. Discharge today 07/27/2016. Pt refused OPD f/u. Postprocedural hypotension 07/21/2016 0 07/23/2016 Overview: CI 2.3. Low levo dose. Volume and calcium x1 Preop testing 07/20/2016 09/04/2016 Overview: Images from the original note were not included. [facility] Surgeon: Dr. Morales Informed Consent Completed: Yes STS Score: Procedure: MV Replacement + CAB Risk of Mortality: 7.571% Procedure: CAB Only Risk of Mortality: 1.834% CAD: Yes - CAD on Problem List: Yes Is intended procedure a CABG: Yes - is a beta kyle ordered? Yes H & P completed: Yes PA/LAT: Completed CT: Pending MRI: N/A LE US: N/A Cath: Yes - reviewed: Yes Echo:Completed EKG: Completed EF %: 65 PI's: Completed Carotid: Completed Mapping: Pending Dental: Pending PFT's: Completed Recent Labs 07/20/16 0513 WBC 9.04 HB 13.4 HCT 40.7 PLT 182 CREAT 1.04 UA: pending ABO/ABO Confirmed: pending Blood ordered:TSH SA Swab: Yes - results: Pending Anticoagulation: Aspirin; plavix l.d: 07/17 Op Note: N/A Pacemaker Check: N/A Consults: Urology will ne available for hernandez placement in the OR DM: Yes Cardiac Surgical prep: Yes SIGNATURE: Peg Mitchell CNP DATE of SERVICE: 07/20/2016 TIME of SERVICE: 2:53 PM Chest pain 07/17/2016 07/17/2016 Non-rheumatic mitral regurgitation 07/17/2016 07/21/2016 Overview: Suspect severe MR from combination of ischemic MR vs functional MR Outside echo not available for review Intraop no MR Plan: Afterload reduce with nitroglycerin infusion Repeat TTE May consider MVR vs repair at time of OHS Screening for genitourinary condition 04/25/2016 07/17/2016 documented as of this encounter (statuses as of 10/28/2022) [facility]05-29-2021 History of Past illness Narrative* Problem Noted Date Diagnosed Date Resolved Date 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 Mild hyponatremia. Assessment: SCR normalizing Plan: Loop stopped. monitor SUMMARY 07/23/2016 07/20/2022 Overview: Indication for hospital admission/procedure: CAD, unstable angina LVEF: 65%, mod LVH RVF: Normal Important/Relevant PMH/PSH: hypertension, dysplipidemia, type II diabetes on oral medications, obesity, former smoking PVD s/p R SFA stent and atherectomy 2013, penile, prostate, and bladder cancers all in remission Preoperative Hospital Course: history of CAD s/p prior PCI to LAD and RCA (1999 and 2000), presented with unstable angina at [facility] -> multivessel CAD. transferred to [facility] for CABG +/- MVR. Given 300mg Plavix load on 07/17 at 11am and aspirin 325mg. EKG with inferior T wave inversions. LHC on 07/17, 70% lesion with severe ISR of proximal LAD stent, 70% ISR lesion of proximal RCA (right dominant), 70% ostial lesion at bifurcations of OMs from AV LCx. His echo at [facility] was reported as LVEF 60%, no RWMA, mild RV dilation, trace TR, moderate to severe MR with MAC. On arrival to [facility], patient is chest pain free and has no complaints. Procedure/Surgeries: 07/21/2016 CABG x3, DODSON to LAD, saphenous vein graft to OM, and saphenous vein graft to the posterolateral branch of the right coronary artery. Airway Difficulty: Grade I - No special instrumentation OR Course: Transient or mild hypotension Pacing wires: No - pulled 07/27/2016 Postoperative Course/General Impression: Issues to communicate at signout: Discharging home today 07/27/2016 - Per Dr. Morales ok to discharge, even though wires were pulled today V-wires pulled 07/27/2016 S/p CABG - on ASA, BB, and statin FVO - at pre-op weight, on RA HTN - SBP 118-140, on BB and restarted PO loop x7days PAD - on ASA DM2 - Following Endo's final recs NAVI - stable Disp: 76yo M from [place], [place]. PT recs home PT/RN - F2F placed. CM aware and following. Will need to follow-up with PCP (called office in attempt to arrange f/u) and Cards. Discharge today 07/27/2016. Pt refused OPD f/u. DISPOSITION AND FOLLOW-UP 07/23/2016 Overview: 76yo M from [place], [place]. PT recs home PT/RN - F2F placed. CM aware and following. Will need to follow-up with PCP (called office in attempt to arrange f/u) and Cards. Discharge today 07/27/2016. Pt refused OPD f/u. Postprocedural hypotension 07/21/2016 0 07/23/2016 Overview: CI 2.3. Low levo dose. Volume and calcium x1 Preop testing 07/20/2016 09/04/2016 Overview: Images from the original note were not included. [facility] Surgeon: Dr. Morales Informed Consent Completed: Yes STS Score: Procedure: MV Replacement + CAB Risk of Mortality: 7.571% Procedure: CAB Only Risk of Mortality: 1.834% CAD: Yes - CAD on Problem List: Yes Is intended procedure a CABG: Yes - is a beta kyle ordered? Yes H & P completed: Yes PA/LAT: Completed CT: Pending MRI: N/A LE US: N/A Cath: Yes - reviewed: Yes Echo:Completed EKG: Completed EF %: 65 PI's: Completed Carotid: Completed Mapping: Pending Dental: Pending PFT's: Completed Recent Labs 07/20/16 0513 WBC 9.04 HB 13.4 HCT 40.7 PLT 182 CREAT 1.04 UA: pending ABO/ABO Confirmed: pending Blood ordered:TSH SA Swab: Yes - results: Pending Anticoagulation: Aspirin; plavix l.d: 07/17 Op Note: N/A Pacemaker Check: N/A Consults: Urology will ne available for hernandez placement in the OR DM: Yes Cardiac Surgical prep: Yes SIGNATURE: Peg Mitchell CNP DATE of SERVICE: 07/20/2016 TIME of SERVICE: 2:53 PM Chest pain 07/17/2016 07/17/2016 Non-rheumatic mitral regurgitation 07/17/2016 07/21/2016 Overview: Suspect severe MR from combination of ischemic MR vs functional MR Outside echo not available for review Intraop no MR Plan: Afterload reduce with nitroglycerin infusion Repeat TTE May consider MVR vs repair at time of OHS Screening for genitourinary condition 04/25/2016 07/17/2016 documented as of this encounter (statuses as of 11/03/2022) [place] [id number] History of Past illness Narrative* Problem Noted Date Diagnosed Date Resolved Date 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 Mild hyponatremia. Assessment: SCR normalizing Plan: Loop stopped. monitor SUMMARY 07/23/2016 07/20/2022 Overview: Indication for hospital admission/procedure: CAD, unstable angina LVEF: 65%, mod LVH RVF: Normal Important/Relevant PMH/PSH: hypertension, dysplipidemia, type II diabetes on oral medications, obesity, former smoking PVD s/p R SFA stent and atherectomy 2013, penile, prostate, and bladder cancers all in remission Preoperative Hospital Course: history of CAD s/p prior PCI to LAD and RCA (1999 and 2000), presented with unstable angina at [facility] -> multivessel CAD. transferred to [facility] for CABG +/- MVR. Given 300mg Plavix load on 07/17 at 11am and aspirin 325mg. EKG with inferior T wave inversions. LHC on 07/17, 70% lesion with severe ISR of proximal LAD stent, 70% ISR lesion of proximal RCA (right dominant), 70% ostial lesion at bifurcations of OMs from AV LCx. His echo at [facility] was reported as LVEF 60%, no RWMA, mild RV dilation, trace TR, moderate to severe MR with MAC. On arrival to [facility], patient is chest pain free and has no complaints. Procedure/Surgeries: 07/21/2016 CABG x3, DODSON to LAD, saphenous vein graft to OM, and saphenous vein graft to the posterolateral branch of the right coronary artery. Airway Difficulty: Grade I - No special instrumentation OR Course: Transient or mild hypotension Pacing wires: No - pulled 07/27/2016 Postoperative Course/General Impression: Issues to communicate at signout: Discharging home today 07/27/2016 - Per Dr. Morales ok to discharge, even though wires were pulled today V-wires pulled 07/27/2016 S/p CABG - on ASA, BB, and statin FVO - at pre-op weight, on RA HTN - SBP 118-140, on BB and restarted PO loop x7days PAD - on ASA DM2 - Following Endo's final recs NAVI - stable Disp: 76yo M from [place], [place]. PT recs home PT/RN - F2F placed. CM aware and following. Will need to follow-up with PCP (called office in attempt to arrange f/u) and Cards. Discharge today 07/27/2016. Pt refused OPD f/u. DISPOSITION AND FOLLOW-UP 07/23/2016 Overview: 76yo M from [place]. PT recs home PT/RN - F2F placed. CM aware and following. Will need to follow-up with PCP (called office in attempt to arrange f/u) and Cards. Discharge today 07/27/2016. Pt refused OPD f/u. Postprocedural hypotension 07/21/2016 0 07/23/2016 Overview: CI 2.3. Low levo dose. Volume and calcium x1 Preop testing 07/20/2016 09/04/2016 Overview: Images from the original note were not included. [facility] Surgeon: Dr. Morales Informed Consent Completed: Yes STS Score: Procedure: MV Replacement + CAB Risk of Mortality: 7.571% Procedure: CAB Only Risk of Mortality: 1.834% CAD: Yes - CAD on Problem List: Yes Is intended procedure a CABG: Yes - is a beta kyle ordered? Yes H & P completed: Yes PA/LAT: Completed CT: Pending MRI: N/A LE US: N/A Cath: Yes - reviewed: Yes Echo:Completed EKG: Completed EF %: 65 PI's: Completed Carotid: Completed Mapping: Pending Dental: Pending PFT's: Completed Recent Labs 07/20/16 0513 WBC 9.04 HB 13.4 HCT 40.7 PLT 182 CREAT 1.04 UA: pending ABO/ABO Confirmed: pending Blood ordered:TSH SA Swab: Yes - results: Pending Anticoagulation: Aspirin; plavix l.d: 07/17 Op Note: N/A Pacemaker Check: N/A Consults: Urology will ne available for hernandez placement in the OR DM: Yes Cardiac Surgical prep: Yes SIGNATURE: Peg Mitchell CNP DATE of SERVICE: 07/20/2016 TIME of SERVICE: 2:53 PM Chest pain 07/17/2016 07/17/2016 Non-rheumatic mitral regurgitation 07/17/2016 07/21/2016 Overview: Suspect severe MR from combination of ischemic MR vs functional MR Outside echo not available for review Intraop no MR Plan: Afterload reduce with nitroglycerin infusion Repeat TTE May consider MVR vs repair at time of OHS Screening for genitourinary condition 04/25/2016 07/17/2016 documented as of this encounter (statuses as of 11/19/2022) [facility]-29-2021 History of Past illness Narrative* Problem Noted Date Diagnosed Date Resolved Date 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 Mild hyponatremia. Assessment: SCR normalizing Plan: Loop stopped. monitor SUMMARY 07/23/2016 07/20/2022 Overview: Indication for hospital admission/procedure: CAD, unstable angina LVEF: 65%, mod LVH RVF: Normal Important/Relevant PMH/PSH: hypertension, dysplipidemia, type II diabetes on oral medications, obesity, former smoking PVD s/p R SFA stent and atherectomy 2013, penile, prostate, and bladder cancers all in remission Preoperative Hospital Course: history of CAD s/p prior PCI to LAD and RCA (1999 and 2000), presented with unstable angina at [facility] -> multivessel CAD. transferred to [facility] for CABG +/- MVR. Given 300mg Plavix load on 07/17 at 11am and aspirin 325mg. EKG with inferior T wave inversions. LHC on 07/17, 70% lesion with severe ISR of proximal LAD stent, 70% ISR lesion of proximal RCA (right dominant), 70% ostial lesion at bifurcations of OMs from AV LCx. His echo at [facility] was reported as LVEF 60%, no RWMA, mild RV dilation, trace TR, moderate to severe MR with MAC. On arrival to [facility], patient is chest pain free and has no complaints. Procedure/Surgeries: 07/21/2016 CABG x3, DODSON to LAD, saphenous vein graft to OM, and saphenous vein graft to the posterolateral branch of the right coronary artery. Airway Difficulty: Grade I - No special instrumentation OR Course: Transient or mild hypotension Pacing wires: No - pulled 07/27/2016 Postoperative Course/General Impression: Issues to communicate at signout: Discharging home today 07/27/2016 - Per Dr. Morales ok to discharge, even though wires were pulled today V-wires pulled 07/27/2016 S/p CABG - on ASA, BB, and statin FVO - at pre-op weight, on RA HTN - SBP 118-140, on BB and restarted PO loop x7days PAD - on ASA DM2 - Following Endo's final recs NAVI - stable Disp: 76yo M from [place], [place]. PT recs home PT/RN - F2F placed. CM aware and following. Will need to follow-up with PCP (called office in attempt to arrange f/u) and Cards. Discharge today 07/27/2016. Pt refused OPD f/u. DISPOSITION AND FOLLOW-UP 07/23/2016 Overview: 76yo M from [place], [place]. PT recs home PT/RN - F2F placed. CM aware and following. Will need to follow-up with PCP (called office in attempt to arrange f/u) and Cards. Discharge today 07/27/2016. Pt refused OPD f/u. Postprocedural hypotension 07/21/2016 0 07/23/2016 Overview: CI 2.3. Low levo dose. Volume and calcium x1 Preop testing 07/20/2016 09/04/2016 Overview: Images from the original note were not included. [facility] Surgeon: Dr. Morales Informed Consent Completed: Yes STS Score: Procedure: MV Replacement + CAB Risk of Mortality: 7.571% Procedure: CAB Only Risk of Mortality: 1.834% CAD: Yes - CAD on Problem List: Yes Is intended procedure a CABG: Yes - is a beta kyle ordered? Yes H & P completed: Yes PA/LAT: Completed CT: Pending MRI: N/A LE US: N/A Cath: Yes - reviewed: Yes Echo:Completed EKG: Completed EF %: 65 PI's: Completed Carotid: Completed Mapping: Pending Dental: Pending PFT's: Completed Recent Labs 07/20/16 0513 WBC 9.04 HB 13.4 HCT 40.7 PLT 182 CREAT 1.04 UA: pending ABO/ABO Confirmed: pending Blood ordered:TSH SA Swab: Yes - results: Pending Anticoagulation: Aspirin; plavix l.d: 07/17 Op Note: N/A Pacemaker Check: N/A Consults: Urology will ne available for hernandez placement in the OR DM: Yes Cardiac Surgical prep: Yes SIGNATURE: Peg Mitchell CNP DATE of SERVICE: 07/20/2016 TIME of SERVICE: 2:53 PM Chest pain 07/17/2016 07/17/2016 Non-rheumatic mitral regurgitation 07/17/2016 07/21/2016 Overview: Suspect severe MR from combination of ischemic MR vs functional MR Outside echo not available for review Intraop no MR Plan: Afterload reduce with nitroglycerin infusion Repeat TTE May consider MVR vs repair at time of OHS Screening for genitourinary condition 04/25/2016 07/17/2016 documented as of this encounter (statuses as of 12/08/2022) [facility]-29-2021 History of Past illness Narrative* Problem Noted Date Diagnosed Date Resolved Date 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 Mild hyponatremia. Assessment: SCR normalizing Plan: Loop stopped. monitor SUMMARY 07/23/2016 07/20/2022 Overview: Indication for hospital admission/procedure: CAD, unstable angina LVEF: 65%, mod LVH RVF: Normal Important/Relevant PMH/PSH: hypertension, dysplipidemia, type II diabetes on oral medications, obesity, former smoking PVD s/p R SFA stent and atherectomy 2013, penile, prostate, and bladder cancers all in remission Preoperative Hospital Course: history of CAD s/p prior PCI to LAD and RCA (1999 and 2000), presented with unstable angina at [facility] -> multivessel CAD. transferred to [facility] for CABG +/- MVR. Given 300mg Plavix load on 07/17 at 11am and aspirin 325mg. EKG with inferior T wave inversions. LHC on 07/17, 70% lesion with severe ISR of proximal LAD stent, 70% ISR lesion of proximal RCA (right dominant), 70% ostial lesion at bifurcations of OMs from AV LCx. His echo at [facility] was reported as LVEF 60%, no RWMA, mild RV dilation, trace TR, moderate to severe MR with MAC. On arrival to [facility], patient is chest pain free and has no complaints. Procedure/Surgeries: 07/21/2016 CABG x3, DODSON to LAD, saphenous vein graft to OM, and saphenous vein graft to the posterolateral branch of the right coronary artery. Airway Difficulty: Grade I - No special instrumentation OR Course: Transient or mild hypotension Pacing wires: No - pulled 07/27/2016 Postoperative Course/General Impression: Issues to communicate at signout: Discharging home today 07/27/2016 - Per Dr. Morales ok to discharge, even though wires were pulled today V-wires pulled 07/27/2016 S/p CABG - on ASA, BB, and statin FVO - at pre-op weight, on RA HTN - SBP 118-140, on BB and restarted PO loop x7days PAD - on ASA DM2 - Following Endo's final recs NAVI - stable Disp: 76yo M from [place], [place]. PT recs home PT/RN - F2F placed. CM aware and following. Will need to follow-up with PCP (called office in attempt to arrange f/u) and Cards. Discharge today 07/27/2016. Pt refused OPD f/u. DISPOSITION AND FOLLOW-UP 07/23/2016 Overview: 76yo M from [place]. PT recs home PT/RN - F2F placed. CM aware and following. Will need to follow-up with PCP (called office in attempt to arrange f/u) and Cards. Discharge today 07/27/2016. Pt refused OPD f/u. Postprocedural hypotension 07/21/2016 0 07/23/2016 Overview: CI 2.3. Low levo dose. Volume and calcium x1 Preop testing 07/20/2016 09/04/2016 Overview: Images from the original note were not included. [facility] Surgeon: Dr. Morales Informed Consent Completed: Yes STS Score: Procedure: MV Replacement + CAB Risk of Mortality: 7.571% Procedure: CAB Only Risk of Mortality: 1.834% CAD: Yes - CAD on Problem List: Yes Is intended procedure a CABG: Yes - is a beta kyle ordered? Yes H & P completed: Yes PA/LAT: Completed CT: Pending MRI: N/A LE US: N/A Cath: Yes - reviewed: Yes Echo:Completed EKG: Completed EF %: 65 PI's: Completed Carotid: Completed Mapping: Pending Dental: Pending PFT's: Completed Recent Labs 07/20/16 0513 WBC 9.04 HB 13.4 HCT 40.7 PLT 182 CREAT 1.04 UA: pending ABO/ABO Confirmed: pending Blood ordered:TSH SA Swab: Yes - results: Pending Anticoagulation: Aspirin; plavix l.d: 07/17 Op Note: N/A Pacemaker Check: N/A Consults: Urology will ne available for hernandez placement in the OR DM: Yes Cardiac Surgical prep: Yes SIGNATURE: Peg Mitchell CNP DATE of SERVICE: 07/20/2016 TIME of SERVICE: 2:53 PM Chest pain 07/17/2016 07/17/2016 Non-rheumatic mitral regurgitation 07/17/2016 07/21/2016 Overview: Suspect severe MR from combination of ischemic MR vs functional MR Outside echo not available for review Intraop no MR Plan: Afterload reduce with nitroglycerin infusion Repeat TTE May consider MVR vs repair at time of [facility] Screening for genitourinary condition 04/25/2016 07/17/2016 documented as of this encounter (statuses as of 12/08/2022) [facility]05-29-2021 History of Past illness Narrative* Problem Noted Date Diagnosed Date Resolved Date 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 Mild hyponatremia. Assessment: SCR normalizing Plan: Loop stopped. monitor SUMMARY 07/23/2016 07/20/2022 Overview: Indication for hospital admission/procedure: CAD, unstable angina LVEF: 65%, mod LVH RVF: Normal Important/Relevant PMH/PSH: hypertension, dysplipidemia, type II diabetes on oral medications, obesity, former smoking PVD s/p R SFA stent and atherectomy 2013, penile, prostate, and bladder cancers all in remission Preoperative Hospital Course: history of CAD s/p prior PCI to LAD and RCA (1999 and 2000), presented with unstable angina at [facility] -> multivessel CAD. transferred to [facility] for CABG +/- MVR. Given 300mg Plavix load on 07/17 at 11am and aspirin 325mg. EKG with inferior T wave inversions. LHC on 07/17, 70% lesion with severe ISR of proximal LAD stent, 70% ISR lesion of proximal RCA (right dominant), 70% ostial lesion at bifurcations of OMs from AV LCx. His echo at [facility] was reported as LVEF 60%, no RWMA, mild RV dilation, trace TR, moderate to severe MR with MAC. On arrival to [facility], patient is chest pain free and has no complaints. Procedure/Surgeries: 07/21/2016 CABG x3, DODSON to LAD, saphenous vein graft to OM, and saphenous vein graft to the posterolateral branch of the right coronary artery. Airway Difficulty: Grade I - No special instrumentation OR Course: Transient or mild hypotension Pacing wires: No - pulled 07/27/2016 Postoperative Course/General Impression: Issues to communicate at signout: Discharging home today 07/27/2016 - Per Dr. Morales ok to discharge, even though wires were pulled today V-wires pulled 07/27/2016 S/p CABG - on ASA, BB, and statin FVO - at pre-op weight, on RA HTN - SBP 118-140, on BB and restarted PO loop x7days PAD - on ASA DM2 - Following Endo's final recs NAVI - stable Disp: 76yo M from [place], [place]. PT recs home PT/RN - F2F placed. CM aware and following. Will need to follow-up with PCP (called office in attempt to arrange f/u) and Cards. Discharge today 07/27/2016. Pt refused OPD f/u. DISPOSITION AND FOLLOW-UP 07/23/2016 Overview: 76yo M from [place], [place]. PT recs home PT/RN - F2F placed. CM aware and following. Will need to follow-up with PCP (called office in attempt to arrange f/u) and Cards. Discharge today 07/27/2016. Pt refused OPD f/u. Postprocedural hypotension 07/21/2016 0 07/23/2016 Overview: CI 2.3. Low levo dose. Volume and calcium x1 Preop testing 07/20/2016 09/04/2016 Overview: Images from the original note were not included. [facility] Surgeon: Dr. Morales Informed Consent Completed: Yes STS Score: Procedure: MV Replacement + CAB Risk of Mortality: 7.571% Procedure: CAB Only Risk of Mortality: 1.834% CAD: Yes - CAD on Problem List: Yes Is intended procedure a CABG: Yes - is a beta kyle ordered? Yes H & P completed: Yes PA/LAT: Completed CT: Pending MRI: N/A LE US: N/A Cath: Yes - reviewed: Yes Echo:Completed EKG: Completed EF %: 65 PI's: Completed Carotid: Completed Mapping: Pending Dental: Pending PFT's: Completed Recent Labs 07/20/16 0513 WBC 9.04 HB 13.4 HCT 40.7 PLT 182 CREAT 1.04 UA: pending ABO/ABO Confirmed: pending Blood ordered:TSH SA Swab: Yes - results: Pending Anticoagulation: Aspirin; plavix l.d: 07/17 Op Note: N/A Pacemaker Check: N/A Consults: Urology will ne available for hernandez placement in the OR DM: Yes Cardiac Surgical prep: Yes SIGNATURE: Peg Mitchell CNP DATE of SERVICE: 07/20/2016 TIME of SERVICE: 2:53 PM Chest pain 07/17/2016 07/17/2016 Non-rheumatic mitral regurgitation 07/17/2016 07/21/2016 Overview: Suspect severe MR from combination of ischemic MR vs functional MR Outside echo not available for review Intraop no MR Plan: Afterload reduce with nitroglycerin infusion Repeat TTE May consider MVR vs repair at time of [facility] Screening for genitourinary condition 04/25/2016 07/17/2016 documented as of this encounter (statuses as of 01/20/2023) [facility]05-29-2021 History of Past illness Narrative* Problem Noted Date Diagnosed Date Resolved Date 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 Mild hyponatremia. Assessment: SCR normalizing Plan: Loop stopped. monitor SUMMARY 07/23/2016 07/20/2022 Overview: Indication for hospital admission/procedure: CAD, unstable angina LVEF: 65%, mod LVH RVF: Normal Important/Relevant PMH/PSH: hypertension, dysplipidemia, type II diabetes on oral medications, obesity, former smoking PVD s/p R SFA stent and atherectomy 2013, penile, prostate, and bladder cancers all in remission Preoperative Hospital Course: history of CAD s/p prior PCI to LAD and RCA (1999 and 2000), presented with unstable angina at [facility] -> multivessel CAD. transferred to [facility] for CABG +/- MVR. Given 300mg Plavix load on 07/17 at 11am and aspirin 325mg. EKG with inferior T wave inversions. LHC on 07/17, 70% lesion with severe ISR of proximal LAD stent, 70% ISR lesion of proximal RCA (right dominant), 70% ostial lesion at bifurcations of OMs from AV LCx. His echo at [facility] was reported as LVEF 60%, no RWMA, mild RV dilation, trace TR, moderate to severe MR with MAC. On arrival to [facility], patient is chest pain free and has no complaints. Procedure/Surgeries: 07/21/2016 CABG x3, DODSON to LAD, saphenous vein graft to OM, and saphenous vein graft to the posterolateral branch of the right coronary artery. Airway Difficulty: Grade I - No special instrumentation OR Course: Transient or mild hypotension Pacing wires: No - pulled 07/27/2016 Postoperative Course/General Impression: Issues to communicate at signout: Discharging home today 07/27/2016 - Per Dr. Morales ok to discharge, even though wires were pulled today V-wires pulled 07/27/2016 S/p CABG - on ASA, BB, and statin FVO - at pre-op weight, on RA HTN - SBP 118-140, on BB and restarted PO loop x7days PAD - on ASA DM2 - Following Endo's final recs NAVI - stable Disp: 76yo M from [place], [place]. PT recs home PT/RN - F2F placed. CM aware and following. Will need to follow-up with PCP (called office in attempt to arrange f/u) and Cards. Discharge today 07/27/2016. Pt refused OPD f/u. DISPOSITION AND FOLLOW-UP 07/23/2016 Overview: 76yo M from [place], [place]. PT recs home PT/RN - F2F placed. CM aware and following. Will need to follow-up with PCP (called office in attempt to arrange f/u) and Cards. Discharge today 07/27/2016. Pt refused OPD f/u. Postprocedural hypotension 07/21/2016 0 07/23/2016 Overview: CI 2.3. Low levo dose. Volume and calcium x1 Preop testing 07/20/2016 09/04/2016 Overview: Images from the original note were not included. [facility] Surgeon: Dr. Morales Informed Consent Completed: Yes STS Score: Procedure: MV Replacement + CAB Risk of Mortality: 7.571% Procedure: CAB Only Risk of Mortality: 1.834% CAD: Yes - CAD on Problem List: Yes Is intended procedure a CABG: Yes - is a beta kyle ordered? Yes H & P completed: Yes PA/LAT: Completed CT: Pending MRI: N/A LE US: N/A Cath: Yes - reviewed: Yes Echo:Completed EKG: Completed EF %: 65 PI's: Completed Carotid: Completed Mapping: Pending Dental: Pending PFT's: Completed Recent Labs 07/20/16 0513 WBC 9.04 HB 13.4 HCT 40.7 PLT 182 CREAT 1.04 UA: pending ABO/ABO Confirmed: pending Blood ordered:TSH SA Swab: Yes - results: Pending Anticoagulation: Aspirin; plavix l.d: 07/17 Op Note: N/A Pacemaker Check: N/A Consults: Urology will ne available for hernandez placement in the OR DM: Yes Cardiac Surgical prep: Yes SIGNATURE: Peg Micthell CNP DATE of SERVICE: 07/20/2016 TIME of SERVICE: 2:53 PM Chest pain 07/17/2016 07/17/2016 Non-rheumatic mitral regurgitation 07/17/2016 07/21/2016 Overview: Suspect severe MR from combination of ischemic MR vs functional MR Outside echo not available for review Intraop no MR Plan: Afterload reduce with nitroglycerin infusion Repeat TTE May consider MVR vs repair at time of [facility] Screening for genitourinary condition 04/25/2016 07/17/2016 documented as of this encounter (statuses as of 01/21/2023) [facility]05-29-2021 History of Past illness Narrative* Problem Noted Date Diagnosed Date Resolved Date 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 Mild hyponatremia. Assessment: SCR normalizing Plan: Loop stopped. monitor SUMMARY 07/23/2016 07/20/2022 Overview: Indication for hospital admission/procedure: CAD, unstable angina LVEF: 65%, mod LVH RVF: Normal Important/Relevant PMH/PSH: hypertension, dysplipidemia, type II diabetes on oral medications, obesity, former smoking PVD s/p R SFA stent and atherectomy 2013, penile, prostate, and bladder cancers all in remission Preoperative Hospital Course: history of CAD s/p prior PCI to LAD and RCA (1999 and 2000), presented with unstable angina at [facility] -> multivessel CAD. transferred to [facility] for CABG +/- MVR. Given 300mg Plavix load on 07/17 at 11am and aspirin 325mg. EKG with inferior T wave inversions. LHC on 07/17, 70% lesion with severe ISR of proximal LAD stent, 70% ISR lesion of proximal RCA (right dominant), 70% ostial lesion at bifurcations of OMs from AV LCx. His echo at [facility] was reported as LVEF 60%, no RWMA, mild RV dilation, trace TR, moderate to severe MR with MAC. On arrival to [facility], patient is chest pain free and has no complaints. Procedure/Surgeries: 07/21/2016 CABG x3, DODSON to LAD, saphenous vein graft to OM, and saphenous vein graft to the posterolateral branch of the right coronary artery. Airway Difficulty: Grade I - No special instrumentation OR Course: Transient or mild hypotension Pacing wires: No - pulled 07/27/2016 Postoperative Course/General Impression: Issues to communicate at signout: Discharging home today 07/27/2016 - Per Dr. Morales ok to discharge, even though wires were pulled today V-wires pulled 07/27/2016 S/p CABG - on ASA, BB, and statin FVO - at pre-op weight, on RA HTN - SBP 118-140, on BB and restarted PO loop x7days PAD - on ASA DM2 - Following Endo's final recs NAVI - stable Disp: 76yo M from [place], [place]. PT recs home PT/RN - F2F placed. CM aware and following. Will need to follow-up with PCP (called office in attempt to arrange f/u) and Cards. Discharge today 07/27/2016. Pt refused OPD f/u. DISPOSITION AND FOLLOW-UP 07/23/2016 Overview: 76yo M from [place], [place]. PT recs home PT/RN - F2F placed. CM aware and following. Will need to follow-up with PCP (called office in attempt to arrange f/u) and Cards. Discharge today 07/27/2016. Pt refused OPD f/u. Postprocedural hypotension 07/21/2016 0 07/23/2016 Overview: CI 2.3. Low levo dose. Volume and calcium x1 Preop testing 07/20/2016 09/04/2016 Overview: Images from the original note were not included. [facility] Surgeon: Dr. Morales Informed Consent Completed: Yes STS Score: Procedure: MV Replacement + CAB Risk of Mortality: 7.571% Procedure: CAB Only Risk of Mortality: 1.834% CAD: Yes - CAD on Problem List: Yes Is intended procedure a CABG: Yes - is a beta kyle ordered? Yes H & P completed: Yes PA/LAT: Completed CT: Pending MRI: N/A LE US: N/A Cath: Yes - reviewed: Yes Echo:Completed EKG: Completed EF %: 65 PI's: Completed Carotid: Completed Mapping: Pending Dental: Pending PFT's: Completed Recent Labs 07/20/16 0513 WBC 9.04 HB 13.4 HCT 40.7 PLT 182 CREAT 1.04 UA: pending ABO/ABO Confirmed: pending Blood ordered:TSH SA Swab: Yes - results: Pending Anticoagulation: Aspirin; plavix l.d: 07/17 Op Note: N/A Pacemaker Check: N/A Consults: Urology will ne available for hernandez placement in the OR DM: Yes Cardiac Surgical prep: Yes SIGNATURE: Peg Mitchell CNP DATE of SERVICE: 07/20/2016 TIME of SERVICE: 2:53 PM Chest pain 07/17/2016 07/17/2016 Non-rheumatic mitral regurgitation 07/17/2016 07/21/2016 Overview: Suspect severe MR from combination of ischemic MR vs functional MR Outside echo not available for review Intraop no MR Plan: Afterload reduce with nitroglycerin infusion Repeat TTE May consider MVR vs repair at time of [facility] Screening for genitourinary condition 04/25/2016 07/17/2016 documented as of this encounter (statuses as of 01/27/2023) [facility]05-29-2021 History of Past illness Narrative* Problem Noted Date Diagnosed Date Resolved Date 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 Mild hyponatremia. Assessment: SCR normalizing Plan: Loop stopped. monitor SUMMARY 07/23/2016 07/20/2022 Overview: Indication for hospital admission/procedure: CAD, unstable angina LVEF: 65%, mod LVH RVF: Normal Important/Relevant PMH/PSH: hypertension, dysplipidemia, type II diabetes on oral medications, obesity, former smoking PVD s/p R SFA stent and atherectomy 2013, penile, prostate, and bladder cancers all in remission Preoperative Hospital Course: history of CAD s/p prior PCI to LAD and RCA (1999 and 2000), presented with unstable angina at [facility] -> multivessel CAD. transferred to [facility] for CABG +/- MVR. Given 300mg Plavix load on 07/17 at 11am and aspirin 325mg. EKG with inferior T wave inversions. [facility] on 07/17, 70% lesion with severe ISR of proximal LAD stent, 70% ISR lesion of proximal RCA (right dominant), 70% ostial lesion at bifurcations of OMs from AV LCx. His echo at [facility] was reported as LVEF 60%, no RWMA, mild RV dilation, trace TR, moderate to severe MR with MAC. On arrival to [facility], patient is chest pain free and has no complaints. Procedure/Surgeries: 07/21/2016 CABG x3, DODSON to LAD, saphenous vein graft to OM, and saphenous vein graft to the posterolateral branch of the right coronary artery. Airway Difficulty: Grade I - No special instrumentation OR Course: Transient or mild hypotension Pacing wires: No - pulled 07/27/2016 Postoperative Course/General Impression: Issues to communicate at signout: Discharging home today 07/27/2016 - Per Dr. Morales ok to discharge, even though wires were pulled today V-wires pulled 07/27/2016 S/p CABG - on ASA, BB, and statin FVO - at pre-op weight, on RA HTN - SBP 118-140, on BB and restarted PO loop x7days PAD - on ASA DM2 - Following Endo's final recs NAVI - stable Disp: 76yo M from [place], [place]. PT recs home PT/RN - F2F placed. CM aware and following. Will need to follow-up with PCP (called office in attempt to arrange f/u) and Cards. Discharge today 07/27/2016. Pt refused OPD f/u. DISPOSITION AND FOLLOW-UP 07/23/2016 Overview: 76yo M from [place]. PT recs home PT/RN - F2F placed. CM aware and following. Will need to follow-up with PCP (called office in attempt to arrange f/u) and Cards. Discharge today 07/27/2016. Pt refused OPD f/u. Postprocedural hypotension 07/21/2016 0 07/23/2016 Overview: CI 2.3. Low levo dose. Volume and calcium x1 Preop testing 07/20/2016 09/04/2016 Overview: Images from the original note were not included. [facility] Surgeon: Dr. Morales Informed Consent Completed: Yes STS Score: Procedure: MV Replacement + CAB Risk of Mortality: 7.571% Procedure: CAB Only Risk of Mortality: 1.834% CAD: Yes - CAD on Problem List: Yes Is intended procedure a CABG: Yes - is a beta kyle ordered? Yes H & P completed: Yes PA/LAT: Completed CT: Pending MRI: N/A LE US: N/A Cath: Yes - reviewed: Yes Echo:Completed EKG: Completed EF %: 65 PI's: Completed Carotid: Completed Mapping: Pending Dental: Pending PFT's: Completed Recent Labs 07/20/16 0513 WBC 9.04 HB 13.4 HCT 40.7 PLT 182 CREAT 1.04 UA: pending ABO/ABO Confirmed: pending Blood ordered:TSH SA Swab: Yes - results: Pending Anticoagulation: Aspirin; plavix l.d: 07/17 Op Note: N/A Pacemaker Check: N/A Consults: Urology will ne available for hernandez placement in the OR DM: Yes Cardiac Surgical prep: Yes SIGNATURE: Peg Mitchell CNP DATE of SERVICE: 07/20/2016 TIME of SERVICE: 2:53 PM Chest pain 07/17/2016 07/17/2016 Non-rheumatic mitral regurgitation 07/17/2016 07/21/2016 Overview: Suspect severe MR from combination of ischemic MR vs functional MR Outside echo not available for review Intraop no MR Plan: Afterload reduce with nitroglycerin infusion Repeat TTE May consider MVR vs repair at time of [facility] Screening for genitourinary condition 04/25/2016 07/17/2016 documented as of this encounter (statuses as of 01/30/2023) [facility]-29-2021 History of Past illness Narrative* Problem Noted Date Diagnosed Date Resolved Date 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 Mild hyponatremia. Assessment: SCR normalizing Plan: Loop stopped. monitor SUMMARY 07/23/2016 07/20/2022 Overview: Indication for hospital admission/procedure: CAD, unstable angina LVEF: 65%, mod LVH RVF: Normal Important/Relevant PMH/PSH: hypertension, dysplipidemia, type II diabetes on oral medications, obesity, former smoking PVD s/p R SFA stent and atherectomy 2013, penile, prostate, and bladder cancers all in remission Preoperative Hospital Course: history of CAD s/p prior PCI to LAD and RCA (1999 and 2000), presented with unstable angina at [facility] -> multivessel CAD. transferred to [facility] for CABG +/- MVR. Given 300mg Plavix load on 07/17 at 11am and aspirin 325mg. EKG with inferior T wave inversions. LHC on 07/17, 70% lesion with severe ISR of proximal LAD stent, 70% ISR lesion of proximal RCA (right dominant), 70% ostial lesion at bifurcations of OMs from AV LCx. His echo at [facility] was reported as LVEF 60%, no RWMA, mild RV dilation, trace TR, moderate to severe MR with MAC. On arrival to [facility], patient is chest pain free and has no complaints. Procedure/Surgeries: 07/21/2016 CABG x3, DODSON to LAD, saphenous vein graft to OM, and saphenous vein graft to the posterolateral branch of the right coronary artery. Airway Difficulty: Grade I - No special instrumentation OR Course: Transient or mild hypotension Pacing wires: No - pulled 07/27/2016 Postoperative Course/General Impression: Issues to communicate at signout: Discharging home today 07/27/2016 - Per Dr. Morales ok to discharge, even though wires were pulled today V-wires pulled 07/27/2016 S/p CABG - on ASA, BB, and statin FVO - at pre-op weight, on RA HTN - SBP 118-140, on BB and restarted PO loop x7days PAD - on ASA DM2 - Following Endo's final recs NAVI - stable Disp: 76yo M from [place]. PT recs home PT/RN - F2F placed. CM aware and following. Will need to follow-up with PCP (called office in attempt to arrange f/u) and Cards. Discharge today 07/27/2016. Pt refused OPD f/u. DISPOSITION AND FOLLOW-UP 07/23/2016 Overview: 76yo M from [place]. PT recs home PT/RN - F2F placed. CM aware and following. Will need to follow-up with PCP (called office in attempt to arrange f/u) and Cards. Discharge today 07/27/2016. Pt refused OPD f/u. Postprocedural hypotension 07/21/2016 0 07/23/2016 Overview: CI 2.3. Low levo dose. Volume and calcium x1 Preop testing 07/20/2016 09/04/2016 Overview: Images from the original note were not included. [facility] Surgeon: Dr. Morales Informed Consent Completed: Yes STS Score: Procedure: MV Replacement + CAB Risk of Mortality: 7.571% Procedure: CAB Only Risk of Mortality: 1.834% CAD: Yes - CAD on Problem List: Yes Is intended procedure a CABG: Yes - is a beta kyle ordered? Yes H & P completed: Yes PA/LAT: Completed CT: Pending MRI: N/A LE US: N/A Cath: Yes - reviewed: Yes Echo:Completed EKG: Completed EF %: 65 PI's: Completed Carotid: Completed Mapping: Pending Dental: Pending PFT's: Completed Recent Labs 07/20/16 0513 WBC 9.04 HB 13.4 HCT 40.7 PLT 182 CREAT 1.04 UA: pending ABO/ABO Confirmed: pending Blood ordered:TSH SA Swab: Yes - results: Pending Anticoagulation: Aspirin; plavix l.d: 07/17 Op Note: N/A Pacemaker Check: N/A Consults: Urology will ne available for hernandez placement in the OR DM: Yes Cardiac Surgical prep: Yes SIGNATURE: Peg Mitchell CNP DATE of SERVICE: 07/20/2016 TIME of SERVICE: 2:53 PM Chest pain 07/17/2016 07/17/2016 Non-rheumatic mitral regurgitation 07/17/2016 07/21/2016 Overview: Suspect severe MR from combination of ischemic MR vs functional MR Outside echo not available for review Intraop no MR Plan: Afterload reduce with nitroglycerin infusion Repeat TTE May consider MVR vs repair at time of [facility] Screening for genitourinary condition 04/25/2016 07/17/2016 documented as of this encounter (statuses as of 02/02/2023) [facility]-29-2021 History of Past illness Narrative* Problem Noted Date Diagnosed Date Resolved Date 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 Mild hyponatremia. Assessment: SCR normalizing Plan: Loop stopped. monitor SUMMARY 07/23/2016 07/20/2022 Overview: Indication for hospital admission/procedure: CAD, unstable angina LVEF: 65%, mod LVH RVF: Normal Important/Relevant PMH/PSH: hypertension, dysplipidemia, type II diabetes on oral medications, obesity, former smoking PVD s/p R SFA stent and atherectomy 2013, penile, prostate, and bladder cancers all in remission Preoperative Hospital Course: history of CAD s/p prior PCI to LAD and RCA (1999 and 2000), presented with unstable angina at [facility] -> multivessel CAD. transferred to [facility] for CABG +/- MVR. Given 300mg Plavix load on 07/17 at 11am and aspirin 325mg. EKG with inferior T wave inversions. [facility] on 07/17, 70% lesion with severe ISR of proximal LAD stent, 70% ISR lesion of proximal RCA (right dominant), 70% ostial lesion at bifurcations of OMs from AV LCx. His echo at [facility] was reported as LVEF 60%, no RWMA, mild RV dilation, trace TR, moderate to severe MR with MAC. On arrival to [facility], patient is chest pain free and has no complaints. Procedure/Surgeries: 07/21/2016 CABG x3, DODSON to LAD, saphenous vein graft to OM, and saphenous vein graft to the posterolateral branch of the right coronary artery. Airway Difficulty: Grade I - No special instrumentation OR Course: Transient or mild hypotension Pacing wires: No - pulled 07/27/2016 Postoperative Course/General Impression: Issues to communicate at signout: Discharging home today 07/27/2016 - Per Dr. Morales ok to discharge, even though wires were pulled today V-wires pulled 07/27/2016 S/p CABG - on ASA, BB, and statin FVO - at pre-op weight, on RA HTN - SBP 118-140, on BB and restarted PO loop x7days PAD - on ASA DM2 - Following Endo's final recs NAVI - stable Disp: 76yo M from [place], [place]. PT recs home PT/RN - F2F placed. CM aware and following. Will need to follow-up with PCP (called office in attempt to arrange f/u) and Cards. Discharge today 07/27/2016. Pt refused OPD f/u. DISPOSITION AND FOLLOW-UP 07/23/2016 Overview: 76yo M from [place], [place]. PT recs home PT/RN - F2F placed. CM aware and following. Will need to follow-up with PCP (called office in attempt to arrange f/u) and Cards. Discharge today 07/27/2016. Pt refused OPD f/u. Postprocedural hypotension 07/21/2016 0 07/23/2016 Overview: CI 2.3. Low levo dose. Volume and calcium x1 Preop testing 07/20/2016 09/04/2016 Overview: Images from the original note were not included. [facility] Surgeon: Dr. Morales Informed Consent Completed: Yes STS Score: Procedure: MV Replacement + CAB Risk of Mortality: 7.571% Procedure: CAB Only Risk of Mortality: 1.834% CAD: Yes - CAD on Problem List: Yes Is intended procedure a CABG: Yes - is a beta kyle ordered? Yes H & P completed: Yes PA/LAT: Completed CT: Pending MRI: N/A LE US: N/A Cath: Yes - reviewed: Yes Echo:Completed EKG: Completed EF %: 65 PI's: Completed Carotid: Completed Mapping: Pending Dental: Pending PFT's: Completed Recent Labs 07/20/16 0513 WBC 9.04 HB 13.4 HCT 40.7 PLT 182 CREAT 1.04 UA: pending ABO/ABO Confirmed: pending Blood ordered:TSH SA Swab: Yes - results: Pending Anticoagulation: Aspirin; plavix l.d: 07/17 Op Note: N/A Pacemaker Check: N/A Consults: Urology will ne available for hernandez placement in the OR DM: Yes Cardiac Surgical prep: Yes SIGNATURE: Peg Mitchell CNP DATE of SERVICE: 07/20/2016 TIME of SERVICE: 2:53 PM Chest pain 07/17/2016 07/17/2016 Non-rheumatic mitral regurgitation 07/17/2016 07/21/2016 Overview: Suspect severe MR from combination of ischemic MR vs functional MR Outside echo not available for review Intraop no MR Plan: Afterload reduce with nitroglycerin infusion Repeat TTE May consider MVR vs repair at time of [facility] Screening for genitourinary condition 04/25/2016 07/17/2016 documented as of this encounter (statuses as of 02/09/2023) [facility]05-29-2021 History of Past illness Narrative* Problem Noted Date Diagnosed Date Resolved Date Parkinsonian features 08/24/20202022 NSTEMI (non-ST elevated myoc ardial infarction) 06/02/2019 07/20/2022 Overview: NSTEMI, demand ischemia due to acute Influenza A Absolute anemia 09/10/2017 07/09/2021 Overview: Added automatically from request for surgery [id number] Microalbuminuria 09/16/2016 07/20/2022 NAVI (acute kidney injury) 07/23/2016 Overview: History: CVICU Low UO, significant increase in creatinine. Mild hyponatremia. Assessment: SCR normalizing Plan: Loop stopped. monitor SUMMARY 07/23/2016 07/20/2022 Overview: Indication for hospital admission/procedure: CAD, unstable angina LVEF: 65%, mod LVH RVF: Normal Important/Relevant PMH/PSH: hypertension, dysplipidemia, type II diabetes on oral medications, obesity, former smoking PVD s/p R SFA stent and atherectomy 2013, penile, prostate, and bladder cancers all in remission Preoperative Hospital Course: history of CAD s/p prior PCI to LAD and RCA (1999 and 2000), presented with unstable angina at [facility] -> multivessel CAD. transferred to [facility] for CABG +/- MVR. Given 300mg Plavix load on 07/17 at 11am and aspirin 325mg. EKG with inferior T wave inversions. [facility] on 07/17, 70% lesion with severe ISR of proximal LAD stent, 70% ISR lesion of proximal RCA (right dominant), 70% ostial lesion at bifurcations of OMs from AV LCx. His echo at [facility] was reported as LVEF 60%, no RWMA, mild RV dilation, trace TR, moderate to severe MR with MAC. On arrival to [facility], patient is chest pain free and has no complaints. Procedure/Surgeries: 07/21/2016 CABG x3, DODSON to LAD, saphenous vein graft to OM, and saphenous vein graft to the posterolateral branch of the right coronary artery. Airway Difficulty: Grade I - No special instrumentation OR Course: Transient or mild hypotension Pacing wires: No - pulled 07/27/2016 Postoperative Course/General Impression: Issues to communicate at signout: Discharging home today 07/27/2016 - Per Dr. Morales ok to discharge, even though wires were pulled today V-wires pulled 07/27/2016 S/p CABG - on ASA, BB, and statin FVO - at pre-op weight, on RA HTN - SBP 118-140, on BB and restarted PO loop x7days PAD - on ASA DM2 - Following Endo's final recs NAVI - stable Disp: 76yo M from [place], [place]. PT recs home PT/RN - F2F placed. CM aware and following. Will need to follow-up with PCP (called office in attempt to arrange f/u) and Cards. Discharge today 07/27/2016. Pt refused OPD f/u. DISPOSITION AND FOLLOW-UP 07/23/2016 Overview: 76yo M from [place], [place]. PT recs home PT/RN - F2F placed. CM aware and following. Will need to follow-up with PCP (called office in attempt to arrange f/u) and Cards. Discharge today 07/27/2016. Pt refused OPD f/u. Postprocedural hypotension 07/21/2016 0 07/23/2016 Overview: CI 2.3. Low levo dose. Volume and calcium x1 Preop testing 07/20/2016 09/04/2016 Overview: Images from the original note were not included. [facility] Surgeon: Dr. Morales Informed Consent Completed: Yes STS Score: Procedure: MV Replacement + CAB Risk of Mortality: 7.571% Procedure: CAB Only Risk of Mortality: 1.834% CAD: Yes - CAD on Problem List: Yes Is intended procedure a CABG: Yes - is a beta kyle ordered? Yes H & P completed: Yes PA/LAT: Completed CT: Pending MRI: N/A LE US: N/A Cath: Yes - reviewed: Yes Echo:Completed EKG: Completed EF %: 65 PI's: Completed Carotid: Completed Mapping: Pending Dental: Pending PFT's: Completed Recent Labs 07/20/16 0513 WBC 9.04 HB 13.4 HCT 40.7 PLT 182 CREAT 1.04 UA: pending ABO/ABO Confirmed: pending Blood ordered:TSH SA Swab: Yes - results: Pending Anticoagulation: Aspirin; plavix l.d: 07/17 Op Note: N/A Pacemaker Check: N/A Consults: Urology will ne available for hernandez placement in the OR DM: Yes Cardiac Surgical prep: Yes SIGNATURE: Peg Mitchell CNP DATE of SERVICE: 07/20/2016 TIME of SERVICE: 2:53 PM Chest pain 07/17/2016 07/17/2016 Non-rheumatic mitral regurgitation 07/17/2016 07/21/2016 Overview: Suspect severe MR from combination of ischemic MR vs functional MR Outside echo not available for review Intraop no MR Plan: Afterload reduce with nitroglycerin infusion Repeat TTE May consider MVR vs repair at time of [facility] Screening for genitourinary condition 04/25/2016 07/17/2016 documented as of this encounter (statuses as of 02/17/2023) [facility]05-29-2021 History of Past illness Narrative* Problem Noted Date Diagnosed Date Resolved Date 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 Mild hyponatremia. Assessment: SCR normalizing Plan: Loop stopped. monitor SUMMARY 07/23/2016 07/20/2022 Overview: Indication for hospital admission/procedure: CAD, unstable angina LVEF: 65%, mod LVH RVF: Normal Important/Relevant PMH/PSH: hypertension, dysplipidemia, type II diabetes on oral medications, obesity, former smoking PVD s/p R SFA stent and atherectomy 2013, penile, prostate, and bladder cancers all in remission Preoperative Hospital Course: history of CAD s/p prior PCI to LAD and RCA (1999 and 2000), presented with unstable angina at [facility] -> multivessel CAD. transferred to [facility] for CABG +/- MVR. Given 300mg Plavix load on 07/17 at 11am and aspirin 325mg. EKG with inferior T wave inversions. [facility] on 07/17, 70% lesion with severe ISR of proximal LAD stent, 70% ISR lesion of proximal RCA (right dominant), 70% ostial lesion at bifurcations of OMs from AV LCx. His echo at [facility] was reported as LVEF 60%, no RWMA, mild RV dilation, trace TR, moderate to severe MR with MAC. On arrival to [facility], patient is chest pain free and has no complaints. Procedure/Surgeries: 07/21/2016 CABG x3, DODSON to LAD, saphenous vein graft to OM, and saphenous vein graft to the posterolateral branch of the right coronary artery. Airway Difficulty: Grade I - No special instrumentation OR Course: Transient or mild hypotension Pacing wires: No - pulled 07/27/2016 Postoperative Course/General Impression: Issues to communicate at signout: Discharging home today 07/27/2016 - Per Dr. Morales ok to discharge, even though wires were pulled today V-wires pulled 07/27/2016 S/p CABG - on ASA, BB, and statin FVO - at pre-op weight, on RA HTN - SBP 118-140, on BB and restarted PO loop x7days PAD - on ASA DM2 - Following Endo's final recs NAVI - stable Disp: 76yo M from [place], [place]. PT recs home PT/RN - F2F placed. CM aware and following. Will need to follow-up with PCP (called office in attempt to arrange f/u) and Cards. Discharge today 07/27/2016. Pt refused OPD f/u. DISPOSITION AND FOLLOW-UP 07/23/2016 Overview: 76yo M from [place], [place]. PT recs home PT/RN - F2F placed. CM aware and following. Will need to follow-up with PCP (called office in attempt to arrange f/u) and Cards. Discharge today 07/27/2016. Pt refused OPD f/u. Postprocedural hypotension 07/21/2016 0 07/23/2016 Overview: CI 2.3. Low levo dose. Volume and calcium x1 Preop testing 07/20/2016 09/04/2016 Overview: Images from the original note were not included. [facility] Surgeon: Dr. Morales Informed Consent Completed: Yes STS Score: Procedure: MV Replacement + CAB Risk of Mortality: 7.571% Procedure: CAB Only Risk of Mortality: 1.834% CAD: Yes - CAD on Problem List: Yes Is intended procedure a CABG: Yes - is a beta kyle ordered? Yes H & P completed: Yes PA/LAT: Completed CT: Pending MRI: N/A LE US: N/A Cath: Yes - reviewed: Yes Echo:Completed EKG: Completed EF %: 65 PI's: Completed Carotid: Completed Mapping: Pending Dental: Pending PFT's: Completed Recent Labs 07/20/16 0513 WBC 9.04 HB 13.4 HCT 40.7 PLT 182 CREAT 1.04 UA: pending ABO/ABO Confirmed: pending Blood ordered:TSH SA Swab: Yes - results: Pending Anticoagulation: Aspirin; plavix l.d: 07/17 Op Note: N/A Pacemaker Check: N/A Consults: Urology will ne available for hernandez placement in the OR DM: Yes Cardiac Surgical prep: Yes SIGNATURE: Peg Mitchell CNP DATE of SERVICE: 07/20/2016 TIME of SERVICE: 2:53 PM Chest pain 07/17/2016 07/17/2016 Non-rheumatic mitral regurgitation 07/17/2016 07/21/2016 Overview: Suspect severe MR from combination of ischemic MR vs functional MR Outside echo not available for review Intraop no MR Plan: Afterload reduce with nitroglycerin infusion Repeat TTE May consider MVR vs repair at time of [facility] Screening for genitourinary condition 04/25/2016 07/17/2016 documented as of this encounter (statuses as of 02/17/2023) [facility]05-29-2021 History of Past illness Narrative* Problem Noted Date Diagnosed Date Resolved Date 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 Mild hyponatremia. Assessment: SCR normalizing Plan: Loop stopped. monitor SUMMARY 07/23/2016 07/20/2022 Overview: Indication for hospital admission/procedure: CAD, unstable angina LVEF: 65%, mod LVH RVF: Normal Important/Relevant PMH/PSH: hypertension, dysplipidemia, type II diabetes on oral medications, obesity, former smoking PVD s/p R SFA stent and atherectomy 2013, penile, prostate, and bladder cancers all in remission Preoperative Hospital Course: history of CAD s/p prior PCI to LAD and RCA (1999 and 2000), presented with unstable angina at [facility] -> multivessel CAD. transferred to [facility] for CABG +/- MVR. Given 300mg Plavix load on 07/17 at 11am and aspirin 325mg. EKG with inferior T wave inversions. [facility] on 07/17, 70% lesion with severe ISR of proximal LAD stent, 70% ISR lesion of proximal RCA (right dominant), 70% ostial lesion at bifurcations of OMs from AV LCx. His echo at [facility] was reported as LVEF 60%, no RWMA, mild RV dilation, trace TR, moderate to severe MR with MAC. On arrival to [facility], patient is chest pain free and has no complaints. Procedure/Surgeries: 07/21/2016 CABG x3, DODSON to LAD, saphenous vein graft to OM, and saphenous vein graft to the posterolateral branch of the right coronary artery. Airway Difficulty: Grade I - No special instrumentation OR Course: Transient or mild hypotension Pacing wires: No - pulled 07/27/2016 Postoperative Course/General Impression: Issues to communicate at signout: Discharging home today 07/27/2016 - Per Dr. Morales ok to discharge, even though wires were pulled today V-wires pulled 07/27/2016 S/p CABG - on ASA, BB, and statin FVO - at pre-op weight, on RA HTN - SBP 118-140, on BB and restarted PO loop x7days PAD - on ASA DM2 - Following Endo's final recs NAVI - stable Disp: 76yo M from [place], [place]. PT recs home PT/RN - F2F placed. CM aware and following. Will need to follow-up with PCP (called office in attempt to arrange f/u) and Cards. Discharge today 07/27/2016. Pt refused OPD f/u. DISPOSITION AND FOLLOW-UP 07/23/2016 Overview: 76yo M from [place]. PT recs home PT/RN - F2F placed. CM aware and following. Will need to follow-up with PCP (called office in attempt to arrange f/u) and Cards. Discharge today 07/27/2016. Pt refused OPD f/u. Postprocedural hypotension 07/21/2016 0 07/23/2016 Overview: CI 2.3. Low levo dose. Volume and calcium x1 Preop testing 07/20/2016 09/04/2016 Overview: Images from the original note were not included. [facility] Surgeon: Dr. Morales Informed Consent Completed: Yes STS Score: Procedure: MV Replacement + CAB Risk of Mortality: 7.571% Procedure: CAB Only Risk of Mortality: 1.834% CAD: Yes - CAD on Problem List: Yes Is intended procedure a CABG: Yes - is a beta kyle ordered? Yes H & P completed: Yes PA/LAT: Completed CT: Pending MRI: N/A LE US: N/A Cath: Yes - reviewed: Yes Echo:Completed EKG: Completed EF %: 65 PI's: Completed Carotid: Completed Mapping: Pending Dental: Pending PFT's: Completed Recent Labs 07/20/16 0513 WBC 9.04 HB 13.4 HCT 40.7 PLT 182 CREAT 1.04 UA: pending ABO/ABO Confirmed: pending Blood ordered:TSH SA Swab: Yes - results: Pending Anticoagulation: Aspirin; plavix l.d: 07/17 Op Note: N/A Pacemaker Check: N/A Consults: Urology will ne available for hernandez placement in the OR DM: Yes Cardiac Surgical prep: Yes SIGNATURE: Peg Mitchell CNP DATE of SERVICE: 07/20/2016 TIME of SERVICE: 2:53 PM Chest pain 07/17/2016 07/17/2016 Non-rheumatic mitral regurgitation 07/17/2016 07/21/2016 Overview: Suspect severe MR from combination of ischemic MR vs functional MR Outside echo not available for review Intraop no MR Plan: Afterload reduce with nitroglycerin infusion Repeat TTE May consider MVR vs repair at time of [facility] Screening for genitourinary condition 04/25/2016 07/17/2016 documented as of this encounter (statuses as of 02/17/2023) [facility]05-29-2021 History of Past illness Narrative* Problem Noted Date Diagnosed Date Resolved Date 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 Mild hyponatremia. Assessment: SCR normalizing Plan: Loop stopped. monitor SUMMARY 07/23/2016 07/20/2022 Overview: Indication for hospital admission/procedure: CAD, unstable angina LVEF: 65%, mod LVH RVF: Normal Important/Relevant PMH/PSH: hypertension, dysplipidemia, type II diabetes on oral medications, obesity, former smoking PVD s/p R SFA stent and atherectomy 2013, penile, prostate, and bladder cancers all in remission Preoperative Hospital Course: history of CAD s/p prior PCI to LAD and RCA (1999 and 2000), presented with unstable angina at [facility] -> multivessel CAD. transferred to [facility] for CABG +/- MVR. Given 300mg Plavix load on 07/17 at 11am and aspirin 325mg. EKG with inferior T wave inversions. [facility] on 07/17, 70% lesion with severe ISR of proximal LAD stent, 70% ISR lesion of proximal RCA (right dominant), 70% ostial lesion at bifurcations of OMs from AV LCx. His echo at [facility] was reported as LVEF 60%, no RWMA, mild RV dilation, trace TR, moderate to severe MR with MAC. On arrival to [facility], patient is chest pain free and has no complaints. Procedure/Surgeries: 07/21/2016 CABG x3, DODSON to LAD, saphenous vein graft to OM, and saphenous vein graft to the posterolateral branch of the right coronary artery. Airway Difficulty: Grade I - No special instrumentation OR Course: Transient or mild hypotension Pacing wires: No - pulled 07/27/2016 Postoperative Course/General Impression: Issues to communicate at signout: Discharging home today 07/27/2016 - Per Dr. Morales ok to discharge, even though wires were pulled today V-wires pulled 07/27/2016 S/p CABG - on ASA, BB, and statin FVO - at pre-op weight, on RA HTN - SBP 118-140, on BB and restarted PO loop x7days PAD - on ASA DM2 - Following Endo's final recs NAVI - stable Disp: 76yo M from [place], [place]. PT recs home PT/RN - F2F placed. CM aware and following. Will need to follow-up with PCP (called office in attempt to arrange f/u) and Cards. Discharge today 07/27/2016. Pt refused OPD f/u. DISPOSITION AND FOLLOW-UP 07/23/2016 Overview: 76yo M from [place]. PT recs home PT/RN - F2F placed. CM aware and following. Will need to follow-up with PCP (called office in attempt to arrange f/u) and Cards. Discharge today 07/27/2016. Pt refused OPD f/u. Postprocedural hypotension 07/21/2016 0 07/23/2016 Overview: CI 2.3. Low levo dose. Volume and calcium x1 Preop testing 07/20/2016 09/04/2016 Overview: Images from the original note were not included. [facility] Surgeon: Dr. Bakaeen Informed Consent Completed: Yes STS Score: Procedure: MV Replacement + CAB Risk of Mortality: 7.571% Procedure: CAB Only Risk of Mortality: 1.834% CAD: Yes - CAD on Problem List: Yes Is intended procedure a CABG: Yes - is a beta kyle ordered? Yes H & P completed: Yes PA/LAT: Completed CT: Pending MRI: N/A LE US: N/A Cath: Yes - reviewed: Yes Echo:Completed EKG: Completed EF %: 65 PI's: Completed Carotid: Completed Mapping: Pending Dental: Pending PFT's: Completed Recent Labs 07/20/16 0513 WBC 9.04 HB 13.4 HCT 40.7 PLT 182 CREAT 1.04 UA: pending ABO/ABO Confirmed: pending Blood ordered:TSH SA Swab: Yes - results: Pending Anticoagulation: Aspirin; plavix l.d: 07/17 Op Note: N/A Pacemaker Check: N/A Consults: Urology will ne available for hernandez placement in the OR DM: Yes Cardiac Surgical prep: Yes SIGNATURE: Peg Mitchell CNP DATE of SERVICE: 07/20/2016 TIME of SERVICE: 2:53 PM Chest pain 07/17/2016 07/17/2016 Non-rheumatic mitral regurgitation 07/17/2016 07/21/2016 Overview: Suspect severe MR from combination of ischemic MR vs functional MR Outside echo not available for review Intraop no MR Plan: Afterload reduce with nitroglycerin infusion Repeat TTE May consider MVR vs repair at time of [facility] Screening for genitourinary condition 04/25/2016 07/17/2016 documented as of this encounter (statuses as of 03/03/2023) [facility]06-15-2018 History of Past illness Narrative* Problem Noted Date Resolved Date Absolute anemia 09/10/2017 07/09/2021 Overview: Added automatically from request for surgery [id number] NAVI (acute kidney injury) 07/23/20162016 Overview: History: CVICU Low UO, significant increase in creatinine. Mild hyponatremia. Assessment: SCR normalizing Plan: Loop stopped. monitor DISPOSITION AND FOLLOW-UP 07/23/20162016 Overview: 76yo M from [place]. PT recs home PT/RN - F2F placed. CM aware and following. Will need to follow-up with PCP (called office in attempt to arrange f/u) and Cards. Discharge today 07/27/2016. Pt refused OPD f/u. Postprocedural hypotension 07/21/201607/23 Overview: CI 2.3. Low levo dose. Volume and calcium x1 Preop testing 07/20/2016 09/04/2016 Overview: Images from the original note were not included. [facility] Surgeon: Dr. Morales Informed Consent Completed: Yes STS Score: Procedure: MV Replacement + CAB Risk of Mortality: 7.571% Procedure: CAB Only Risk of Mortality: 1.834% CAD: Yes - CAD on Problem List: Yes Is intended procedure a CABG: Yes - is a beta kyle ordered? Yes H & P completed: Yes PA/LAT: Completed CT: Pending MRI: N/A LE US: N/A Cath: Yes - reviewed: Yes Echo:Completed EKG: Completed EF %: 65 PI's: Completed Carotid: Completed Mapping: Pending Dental: Pending PFT's: Completed Recent Labs 07/20/16 0513 WBC 9.04 HB 13.4 HCT 40.7 PLT 182 CREAT 1.04 UA: pending ABO/ABO Confirmed: pending Blood ordered:TSH SA Swab: Yes - results: Pending Anticoagulation: Aspirin; plavix l.d: 07/17 Op Note: N/A Pacemaker Check: N/A Consults: Urology will ne available for hernandez placement in the OR DM: Yes Cardiac Surgical prep: Yes SIGNATURE: Peg Mitchell CNP DATE of SERVICE: 07/20/2016 TIME of SERVICE: 2:53 PM Chest pain 07/17/2016 07/17/2016 Non-rheumatic mitral regurgitation 07/17/2016 07/21/2016 Overview: Suspect severe MR from combination of ischemic MR vs functional MR Outside echo not available for review Intraop no MR Plan: Afterload reduce with nitroglycerin infusion Repeat TTE May consider MVR vs repair at time of [facility] Screening for genitourinary condition 04/25/2016 07/17/2016 documented as of this encounter (statuses as of 07/09/2021) [facility] History of Past illness Narrative* Problem Noted Date Resolved Date Absolute anemia 09/10/2017 07/09/2021 Overview: Added automatically from request for surgery [id number] NAVI (acute kidney injury) 07/23/20162016 Overview: History: CVICU Low UO, significant increase in creatinine. Mild hyponatremia. Assessment: SCR normalizing Plan: Loop stopped. monitor DISPOSITION AND FOLLOW-UP 07/23/20162016 Overview: 76yo M from [place], [place]. PT recs home PT/RN - F2F placed. CM aware and following. Will need to follow-up with PCP (called office in attempt to arrange f/u) and Cards. Discharge today 07/27/2016. Pt refused OPD f/u. Postprocedural hypotension 07/21/201607/23 Overview: CI 2.3. Low levo dose. Volume and calcium x1 Preop testing 07/20/2016 09/04/2016 Overview: Images from the original note were not included. [facility] Surgeon: Dr. Morales Informed Consent Completed: Yes STS Score: Procedure: MV Replacement + CAB Risk of Mortality: 7.571% Procedure: CAB Only Risk of Mortality: 1.834% CAD: Yes - CAD on Problem List: Yes Is intended procedure a CABG: Yes - is a beta kyle ordered? Yes H & P completed: Yes PA/LAT: Completed CT: Pending MRI: N/A LE US: N/A Cath: Yes - reviewed: Yes Echo:Completed EKG: Completed EF %: 65 PI's: Completed Carotid: Completed Mapping: Pending Dental: Pending PFT's: Completed Recent Labs 07/20/16 0513 WBC 9.04 HB 13.4 HCT 40.7 PLT 182 CREAT 1.04 UA: pending ABO/ABO Confirmed: pending Blood ordered:TSH SA Swab: Yes - results: Pending Anticoagulation: Aspirin; plavix l.d: 07/17 Op Note: N/A Pacemaker Check: N/A Consults: Urology will ne available for hernandez placement in the OR DM: Yes Cardiac Surgical prep: Yes SIGNATURE: Peg Mitchell CNP DATE of SERVICE: 07/20/2016 TIME of SERVICE: 2:53 PM Chest pain 07/17/2016 07/17/2016 Non-rheumatic mitral regurgitation 07/17/2016 07/21/2016 Overview: Suspect severe MR from combination of ischemic MR vs functional MR Outside echo not available for review Intraop no MR Plan: Afterload reduce with nitroglycerin infusion Repeat TTE May consider MVR vs repair at time of OHS Screening for genitourinary condition 04/25/2016 07/17/2016 documented as of this encounter (statuses as of 08/22/2021) [facility]2018 History of Past illness Narrative* Problem Noted Date Resolved Date Absolute anemia 09/10/2017 07/09/2021 Overview: Added automatically from request for surgery [id number] NAVI (acute kidney injury) 07/23/20162016 Overview: History: CVICU Low UO, significant increase in creatinine. Mild hyponatremia. Assessment: SCR normalizing Plan: Loop stopped. monitor DISPOSITION AND FOLLOW-UP 07/23/20162016 Overview: 76yo M from [place], [place]. PT recs home PT/RN - F2F placed. CM aware and following. Will need to follow-up with PCP (called office in attempt to arrange f/u) and Cards. Discharge today 07/27/2016. Pt refused OPD f/u. Postprocedural hypotension 07/21/201607/23 Overview: CI 2.3. Low levo dose. Volume and calcium x1 Preop testing 07/20/2016 09/04/2016 Overview: Images from the original note were not included. [facility] Surgeon: Dr. Morales Informed Consent Completed: Yes STS Score: Procedure: MV Replacement + CAB Risk of Mortality: 7.571% Procedure: CAB Only Risk of Mortality: 1.834% CAD: Yes - CAD on Problem List: Yes Is intended procedure a CABG: Yes - is a beta kyle ordered? Yes H & P completed: Yes PA/LAT: Completed CT: Pending MRI: N/A LE US: N/A Cath: Yes - reviewed: Yes Echo:Completed EKG: Completed EF %: 65 PI's: Completed Carotid: Completed Mapping: Pending Dental: Pending PFT's: Completed Recent Labs 07/20/16 0513 WBC 9.04 HB 13.4 HCT 40.7 PLT 182 CREAT 1.04 UA: pending ABO/ABO Confirmed: pending Blood ordered:TSH SA Swab: Yes - results: Pending Anticoagulation: Aspirin; plavix l.d: 07/17 Op Note: N/A Pacemaker Check: N/A Consults: Urology will ne available for hernandez placement in the OR DM: Yes Cardiac Surgical prep: Yes SIGNATURE: Peg Mitchell CNP DATE of SERVICE: 07/20/2016 TIME of SERVICE: 2:53 PM Chest pain 07/17/2016 07/17/2016 Non-rheumatic mitral regurgitation 07/17/2016 07/21/2016 Overview: Suspect severe MR from combination of ischemic MR vs functional MR Outside echo not available for review Intraop no MR Plan: Afterload reduce with nitroglycerin infusion Repeat TTE May consider MVR vs repair at time of OHS Screening for genitourinary condition 04/25/2016 07/17/2016 documented as of this encounter (statuses as of 08/29/2021) [facility] History of Past illness Narrative* Problem Noted Date Resolved Date Absolute anemia 09/10/2017 07/09/2021 Overview: Added automatically from request for surgery [id number] NAVI (acute kidney injury) 07/23/20162016 Overview: History: CVICU Low UO, significant increase in creatinine. Mild hyponatremia. Assessment: SCR normalizing Plan: Loop stopped. monitor DISPOSITION AND FOLLOW-UP 07/23/20162016 Overview: 76yo M from [place], [place]. PT recs home PT/RN - F2F placed. CM aware and following. Will need to follow-up with PCP (called office in attempt to arrange f/u) and Cards. Discharge today 07/27/2016. Pt refused OPD f/u. Postprocedural hypotension 07/21/201607/23 Overview: CI 2.3. Low levo dose. Volume and calcium x1 Preop testing 07/20/2016 09/04/2016 Overview: Images from the original note were not included. [facility] Surgeon: Dr. Morales Informed Consent Completed: Yes STS Score: Procedure: MV Replacement + CAB Risk of Mortality: 7.571% Procedure: CAB Only Risk of Mortality: 1.834% CAD: Yes - CAD on Problem List: Yes Is intended procedure a CABG: Yes - is a beta kyle ordered? Yes H & P completed: Yes PA/LAT: Completed CT: Pending MRI: N/A LE US: N/A Cath: Yes - reviewed: Yes Echo:Completed EKG: Completed EF %: 65 PI's: Completed Carotid: Completed Mapping: Pending Dental: Pending PFT's: Completed Recent Labs 07/20/16 0513 WBC 9.04 HB 13.4 HCT 40.7 PLT 182 CREAT 1.04 UA: pending ABO/ABO Confirmed: pending Blood ordered:TSH SA Swab: Yes - results: Pending Anticoagulation: Aspirin; plavix l.d: 07/17 Op Note: N/A Pacemaker Check: N/A Consults: Urology will ne available for hernandez placement in the OR DM: Yes Cardiac Surgical prep: Yes SIGNATURE: Peg Mitchell CNP DATE of SERVICE: 07/20/2016 TIME of SERVICE: 2:53 PM Chest pain 07/17/2016 07/17/2016 Non-rheumatic mitral regurgitation 07/17/2016 07/21/2016 Overview: Suspect severe MR from combination of ischemic MR vs functional MR Outside echo not available for review Intraop no MR Plan: Afterload reduce with nitroglycerin infusion Repeat TTE May consider MVR vs repair at time of OHS Screening for genitourinary condition 04/25/2016 07/17/2016 documented as of this encounter (statuses as of 09/08/2021) [facility] History of Past illness Narrative* Problem Noted Date Resolved Date Absolute anemia 09/10/2017 07/09/2021 Overview: Added automatically from request for surgery [id number] NAVI (acute kidney injury) 07/23/20162016 Overview: History: CVICU Low UO, significant increase in creatinine. Mild hyponatremia. Assessment: SCR normalizing Plan: Loop stopped. monitor DISPOSITION AND FOLLOW-UP 07/23/20162016 Overview: 76yo M from [place], [place]. PT recs home PT/RN - F2F placed. CM aware and following. Will need to follow-up with PCP (called office in attempt to arrange f/u) and Cards. Discharge today 07/27/2016. Pt refused OPD f/u. Postprocedural hypotension 07/21/201607/23 Overview: CI 2.3. Low levo dose. Volume and calcium x1 Preop testing 07/20/2016 09/04/2016 Overview: Images from the original note were not included. [facility] Surgeon: Dr. Morales Informed Consent Completed: Yes STS Score: Procedure: MV Replacement + CAB Risk of Mortality: 7.571% Procedure: CAB Only Risk of Mortality: 1.834% CAD: Yes - CAD on Problem List: Yes Is intended procedure a CABG: Yes - is a beta kyle ordered? Yes H & P completed: Yes PA/LAT: Completed CT: Pending MRI: N/A LE US: N/A Cath: Yes - reviewed: Yes Echo:Completed EKG: Completed EF %: 65 PI's: Completed Carotid: Completed Mapping: Pending Dental: Pending PFT's: Completed Recent Labs 07/20/16 0513 WBC 9.04 HB 13.4 HCT 40.7 PLT 182 CREAT 1.04 UA: pending ABO/ABO Confirmed: pending Blood ordered:TSH SA Swab: Yes - results: Pending Anticoagulation: Aspirin; plavix l.d: 07/17 Op Note: N/A Pacemaker Check: N/A Consults: Urology will ne available for hernandez placement in the OR DM: Yes Cardiac Surgical prep: Yes SIGNATURE: Peg Mitchell CNP DATE of SERVICE: 07/20/2016 TIME of SERVICE: 2:53 PM Chest pain 07/17/2016 07/17/2016 Non-rheumatic mitral regurgitation 07/17/2016 07/21/2016 Overview: Suspect severe MR from combination of ischemic MR vs functional MR Outside echo not available for review Intraop no MR Plan: Afterload reduce with nitroglycerin infusion Repeat TTE May consider MVR vs repair at time of OHS Screening for genitourinary condition 04/25/2016 07/17/2016 documented as of this encounter (statuses as of 09/12/2021) [facility] History of Past illness Narrative* Problem Noted Date Resolved Date Absolute anemia 09/10/2017 07/09/2021 Overview: Added automatically from request for surgery [id number] NAVI (acute kidney injury) 07/23/20162016 Overview: History: CVICU Low UO, significant increase in creatinine. Mild hyponatremia. Assessment: SCR normalizing Plan: Loop stopped. monitor DISPOSITION AND FOLLOW-UP 07/23/20162016 Overview: 76yo M from [place], [place]. PT recs home PT/RN - F2F placed. CM aware and following. Will need to follow-up with PCP (called office in attempt to arrange f/u) and Cards. Discharge today 07/27/2016. Pt refused OPD f/u. Postprocedural hypotension 07/21/201607/23 Overview: CI 2.3. Low levo dose. Volume and calcium x1 Preop testing 07/20/2016 09/04/2016 Overview: Images from the original note were not included. [facility] Surgeon: Dr. Morales Informed Consent Completed: Yes STS Score: Procedure: MV Replacement + CAB Risk of Mortality: 7.571% Procedure: CAB Only Risk of Mortality: 1.834% CAD: Yes - CAD on Problem List: Yes Is intended procedure a CABG: Yes - is a beta kyle ordered? Yes H & P completed: Yes PA/LAT: Completed CT: Pending MRI: N/A LE US: N/A Cath: Yes - reviewed: Yes Echo:Completed EKG: Completed EF %: 65 PI's: Completed Carotid: Completed Mapping: Pending Dental: Pending PFT's: Completed Recent Labs 07/20/16 0513 WBC 9.04 HB 13.4 HCT 40.7 PLT 182 CREAT 1.04 UA: pending ABO/ABO Confirmed: pending Blood ordered:TSH SA Swab: Yes - results: Pending Anticoagulation: Aspirin; plavix l.d: 07/17 Op Note: N/A Pacemaker Check: N/A Consults: Urology will ne available for hernandez placement in the OR DM: Yes Cardiac Surgical prep: Yes SIGNATURE: Peg Mitchell CNP DATE of SERVICE: 07/20/2016 TIME of SERVICE: 2:53 PM Chest pain 07/17/2016 07/17/2016 Non-rheumatic mitral regurgitation 07/17/2016 07/21/2016 Overview: Suspect severe MR from combination of ischemic MR vs functional MR Outside echo not available for review Intraop no MR Plan: Afterload reduce with nitroglycerin infusion Repeat TTE May consider MVR vs repair at time of OHS Screening for genitourinary condition 04/25/2016 07/17/2016 documented as of this encounter (statuses as of 09/16/2021) [facility] History of Past illness Narrative* Problem Noted Date Resolved Date Absolute anemia 09/10/2017 07/09/2021 Overview: Added automatically from request for surgery [id number] NAVI (acute kidney injury) 07/23/20162016 Overview: History: CVICU Low UO, significant increase in creatinine. Mild hyponatremia. Assessment: SCR normalizing Plan: Loop stopped. monitor DISPOSITION AND FOLLOW-UP 07/23/20162016 Overview: 76yo M from [place], [place]. PT recs home PT/RN - F2F placed. CM aware and following. Will need to follow-up with PCP (called office in attempt to arrange f/u) and Cards. Discharge today 07/27/2016. Pt refused OPD f/u. Postprocedural hypotension 07/21/201607/23 Overview: CI 2.3. Low levo dose. Volume and calcium x1 Preop testing 07/20/2016 09/04/2016 Overview: Images from the original note were not included. [facility] Surgeon: Dr. Morales Informed Consent Completed: Yes STS Score: Procedure: MV Replacement + CAB Risk of Mortality: 7.571% Procedure: CAB Only Risk of Mortality: 1.834% CAD: Yes - CAD on Problem List: Yes Is intended procedure a CABG: Yes - is a beta kyle ordered? Yes H & P completed: Yes PA/LAT: Completed CT: Pending MRI: N/A LE US: N/A Cath: Yes - reviewed: Yes Echo:Completed EKG: Completed EF %: 65 PI's: Completed Carotid: Completed Mapping: Pending Dental: Pending PFT's: Completed Recent Labs 07/20/16 0513 WBC 9.04 HB 13.4 HCT 40.7 PLT 182 CREAT 1.04 UA: pending ABO/ABO Confirmed: pending Blood ordered:TSH SA Swab: Yes - results: Pending Anticoagulation: Aspirin; plavix l.d: 07/17 Op Note: N/A Pacemaker Check: N/A Consults: Urology will ne available for hernandez placement in the OR DM: Yes Cardiac Surgical prep: Yes SIGNATURE: Peg Mitchell CNP DATE of SERVICE: 07/20/2016 TIME of SERVICE: 2:53 PM Chest pain 07/17/2016 07/17/2016 Non-rheumatic mitral regurgitation 07/17/2016 07/21/2016 Overview: Suspect severe MR from combination of ischemic MR vs functional MR Outside echo not available for review Intraop no MR Plan: Afterload reduce with nitroglycerin infusion Repeat TTE May consider MVR vs repair at time of OHS Screening for genitourinary condition 04/25/2016 07/17/2016 documented as of this encounter (statuses as of 10/02/2021) [facility] History of Past illness Narrative* Problem Noted Date Resolved Date Absolute anemia 09/10/2017 07/09/2021 Overview: Added automatically from request for surgery [id number] NAVI (acute kidney injury) 07/23/20162016 Overview: History: CVICU Low UO, significant increase in creatinine. Mild hyponatremia. Assessment: SCR normalizing Plan: Loop stopped. monitor DISPOSITION AND FOLLOW-UP 07/23/20162016 Overview: 76yo M from [place]. PT recs home PT/RN - F2F placed. CM aware and following. Will need to follow-up with PCP (called office in attempt to arrange f/u) and Cards. Discharge today 07/27/2016. Pt refused OPD f/u. Postprocedural hypotension 07/21/201607/23 Overview: CI 2.3. Low levo dose. Volume and calcium x1 Preop testing 07/20/2016 09/04/2016 Overview: Images from the original note were not included. [facility] Surgeon: Dr. Morales Informed Consent Completed: Yes STS Score: Procedure: MV Replacement + CAB Risk of Mortality: 7.571% Procedure: CAB Only Risk of Mortality: 1.834% CAD: Yes - CAD on Problem List: Yes Is intended procedure a CABG: Yes - is a beta kyle ordered? Yes H & P completed: Yes PA/LAT: Completed CT: Pending MRI: N/A LE US: N/A Cath: Yes - reviewed: Yes Echo:Completed EKG: Completed EF %: 65 PI's: Completed Carotid: Completed Mapping: Pending Dental: Pending PFT's: Completed Recent Labs 07/20/16 0513 WBC 9.04 HB 13.4 HCT 40.7 PLT 182 CREAT 1.04 UA: pending ABO/ABO Confirmed: pending Blood ordered:TSH SA Swab: Yes - results: Pending Anticoagulation: Aspirin; plavix l.d: 07/17 Op Note: N/A Pacemaker Check: N/A Consults: Urology will ne available for hernandez placement in the OR DM: Yes Cardiac Surgical prep: Yes SIGNATURE: Peg Mitchell CNP DATE of SERVICE: 07/20/2016 TIME of SERVICE: 2:53 PM Chest pain 07/17/2016 07/17/2016 Non-rheumatic mitral regurgitation 07/17/2016 07/21/2016 Overview: Suspect severe MR from combination of ischemic MR vs functional MR Outside echo not available for review Intraop no MR Plan: Afterload reduce with nitroglycerin infusion Repeat TTE May consider MVR vs repair at time of OHS Screening for genitourinary condition 04/25/2016 07/17/2016 documented as of this encounter (statuses as of 11/28/2021) [email or web address] History of Past illness Narrative* Problem Noted Date Resolved Date Absolute anemia 09/10/2017 07/09/2021 Overview: Added automatically from request for surgery [id number] NAVI (acute kidney injury) 07/23/20162016 Overview: History: CVICU Low UO, significant increase in creatinine. Mild hyponatremia. Assessment: SCR normalizing Plan: Loop stopped. monitor DISPOSITION AND FOLLOW-UP 07/23/20162016 Overview: 76yo M from [place]. PT recs home PT/RN - F2F placed. CM aware and following. Will need to follow-up with PCP (called office in attempt to arrange f/u) and Cards. Discharge today 07/27/2016. Pt refused OPD f/u. Postprocedural hypotension 07/21/201607/23 Overview: CI 2.3. Low levo dose. Volume and calcium x1 Preop testing 07/20/2016 09/04/2016 Overview: Images from the original note were not included. [facility] Surgeon: Dr. Morales Informed Consent Completed: Yes STS Score: Procedure: MV Replacement + CAB Risk of Mortality: 7.571% Procedure: CAB Only Risk of Mortality: 1.834% CAD: Yes - CAD on Problem List: Yes Is intended procedure a CABG: Yes - is a beta kyle ordered? Yes H & P completed: Yes PA/LAT: Completed CT: Pending MRI: N/A LE US: N/A Cath: Yes - reviewed: Yes Echo:Completed EKG: Completed EF %: 65 PI's: Completed Carotid: Completed Mapping: Pending Dental: Pending PFT's: Completed Recent Labs 07/20/16 0513 WBC 9.04 HB 13.4 HCT 40.7 PLT 182 CREAT 1.04 UA: pending ABO/ABO Confirmed: pending Blood ordered:TSH SA Swab: Yes - results: Pending Anticoagulation: Aspirin; plavix l.d: 07/17 Op Note: N/A Pacemaker Check: N/A Consults: Urology will ne available for hernandez placement in the OR DM: Yes Cardiac Surgical prep: Yes SIGNATURE: Peg Mitchell CNP DATE of SERVICE: 07/20/2016 TIME of SERVICE: 2:53 PM Chest pain 07/17/2016 07/17/2016 Non-rheumatic mitral regurgitation 07/17/2016 07/21/2016 Overview: Suspect severe MR from combination of ischemic MR vs functional MR Outside echo not available for review Intraop no MR Plan: Afterload reduce with nitroglycerin infusion Repeat TTE May consider MVR vs repair at time of OHS Screening for genitourinary condition 04/25/2016 07/17/2016 documented as of this encounter (statuses as of 12/04/2021) [email or web address] History of Past illness Narrative* Problem Noted Date Resolved Date Absolute anemia 09/10/2017 07/09/2021 Overview: Added automatically from request for surgery [id number] NAVI (acute kidney injury) 07/23/20162016 Overview: History: CVICU Low UO, significant increase in creatinine. Mild hyponatremia. Assessment: SCR normalizing Plan: Loop stopped. monitor DISPOSITION AND FOLLOW-UP 07/23/20162016 Overview: 76yo M from [place]. PT recs home PT/RN - F2F placed. CM aware and following. Will need to follow-up with PCP (called office in attempt to arrange f/u) and Cards. Discharge today 07/27/2016. Pt refused OPD f/u. Postprocedural hypotension 07/21/201607/23 Overview: CI 2.3. Low levo dose. Volume and calcium x1 Preop testing 07/20/2016 09/04/2016 Overview: Images from the original note were not included. [facility] Surgeon: Dr. Morales Informed Consent Completed: Yes STS Score: Procedure: MV Replacement + CAB Risk of Mortality: 7.571% Procedure: CAB Only Risk of Mortality: 1.834% CAD: Yes - CAD on Problem List: Yes Is intended procedure a CABG: Yes - is a beta kyle ordered? Yes H & P completed: Yes PA/LAT: Completed CT: Pending MRI: N/A LE US: N/A Cath: Yes - reviewed: Yes Echo:Completed EKG: Completed EF %: 65 PI's: Completed Carotid: Completed Mapping: Pending Dental: Pending PFT's: Completed Recent Labs 07/20/16 0513 WBC 9.04 HB 13.4 HCT 40.7 PLT 182 CREAT 1.04 UA: pending ABO/ABO Confirmed: pending Blood ordered:TSH SA Swab: Yes - results: Pending Anticoagulation: Aspirin; plavix l.d: 07/17 Op Note: N/A Pacemaker Check: N/A Consults: Urology will ne available for hernandez placement in the OR DM: Yes Cardiac Surgical prep: Yes SIGNATURE: Peg Mitchell CNP DATE of SERVICE: 07/20/2016 TIME of SERVICE: 2:53 PM Chest pain 07/17/2016 07/17/2016 Non-rheumatic mitral regurgitation 07/17/2016 07/21/2016 Overview: Suspect severe MR from combination of ischemic MR vs functional MR Outside echo not available for review Intraop no MR Plan: Afterload reduce with nitroglycerin infusion Repeat TTE May consider MVR vs repair at time of OHS Screening for genitourinary condition 04/25/2016 07/17/2016 documented as of this encounter (statuses as of 12/05/2021) [email or web address] History of Past illness Narrative* Problem Noted Date Resolved Date Absolute anemia 09/10/2017 07/09/2021 Overview: Added automatically from request for surgery [id number] NAVI (acute kidney injury) 07/23/20162016 Overview: History: CVICU Low UO, significant increase in creatinine. Mild hyponatremia. Assessment: SCR normalizing Plan: Loop stopped. monitor DISPOSITION AND FOLLOW-UP 07/23/20162016 Overview: 76yo M from [place]. PT recs home PT/RN - F2F placed. CM aware and following. Will need to follow-up with PCP (called office in attempt to arrange f/u) and Cards. Discharge today 07/27/2016. Pt refused OPD f/u. Postprocedural hypotension 07/21/201607/23 Overview: CI 2.3. Low levo dose. Volume and calcium x1 Preop testing 07/20/2016 09/04/2016 Overview: Images from the original note were not included. [facility] Surgeon: Dr. Morales Informed Consent Completed: Yes STS Score: Procedure: MV Replacement + CAB Risk of Mortality: 7.571% Procedure: CAB Only Risk of Mortality: 1.834% CAD: Yes - CAD on Problem List: Yes Is intended procedure a CABG: Yes - is a beta kyle ordered? Yes H & P completed: Yes PA/LAT: Completed CT: Pending MRI: N/A LE US: N/A Cath: Yes - reviewed: Yes Echo:Completed EKG: Completed EF %: 65 PI's: Completed Carotid: Completed Mapping: Pending Dental: Pending PFT's: Completed Recent Labs 07/20/16 0513 WBC 9.04 HB 13.4 HCT 40.7 PLT 182 CREAT 1.04 UA: pending ABO/ABO Confirmed: pending Blood ordered:TSH SA Swab: Yes - results: Pending Anticoagulation: Aspirin; plavix l.d: 07/17 Op Note: N/A Pacemaker Check: N/A Consults: Urology will ne available for hernandez placement in the OR DM: Yes Cardiac Surgical prep: Yes SIGNATURE: Peg Mitchell CNP DATE of SERVICE: 07/20/2016 TIME of SERVICE: 2:53 PM Chest pain 07/17/2016 07/17/2016 Non-rheumatic mitral regurgitation 07/17/2016 07/21/2016 Overview: Suspect severe MR from combination of ischemic MR vs functional MR Outside echo not available for review Intraop no MR Plan: Afterload reduce with nitroglycerin infusion Repeat TTE May consider MVR vs repair at time of OHS Screening for genitourinary condition 04/25/2016 07/17/2016 documented as of this encounter (statuses as of 01/13/2022) [facility] History of Past illness Narrative* Problem Noted Date Resolved Date Absolute anemia 09/10/2017 07/09/2021 Overview: Added automatically from request for surgery [id number] NAVI (acute kidney injury) 07/23/20162016 Overview: History: CVICU Low UO, significant increase in creatinine. Mild hyponatremia. Assessment: SCR normalizing Plan: Loop stopped. monitor DISPOSITION AND FOLLOW-UP 07/23/20162016 Overview: 76yo M from [place]. PT recs home PT/RN - F2F placed. CM aware and following. Will need to follow-up with PCP (called office in attempt to arrange f/u) and Cards. Discharge today 07/27/2016. Pt refused OPD f/u. Postprocedural hypotension 07/21/201607/23 Overview: CI 2.3. Low levo dose. Volume and calcium x1 Preop testing 07/20/2016 09/04/2016 Overview: Images from the original note were not included. [facility] Surgeon: Dr. Morales Informed Consent Completed: Yes STS Score: Procedure: MV Replacement + CAB Risk of Mortality: 7.571% Procedure: CAB Only Risk of Mortality: 1.834% CAD: Yes - CAD on Problem List: Yes Is intended procedure a CABG: Yes - is a beta kyle ordered? Yes H & P completed: Yes PA/LAT: Completed CT: Pending MRI: N/A LE US: N/A Cath: Yes - reviewed: Yes Echo:Completed EKG: Completed EF %: 65 PI's: Completed Carotid: Completed Mapping: Pending Dental: Pending PFT's: Completed Recent Labs 07/20/16 0513 WBC 9.04 HB 13.4 HCT 40.7 PLT 182 CREAT 1.04 UA: pending ABO/ABO Confirmed: pending Blood ordered:TSH SA Swab: Yes - results: Pending Anticoagulation: Aspirin; plavix l.d: 07/17 Op Note: N/A Pacemaker Check: N/A Consults: Urology will ne available for hernandez placement in the OR DM: Yes Cardiac Surgical prep: Yes SIGNATURE: Peg Mitchell CNP DATE of SERVICE: 07/20/2016 TIME of SERVICE: 2:53 PM Chest pain 07/17/2016 07/17/2016 Non-rheumatic mitral regurgitation 07/17/2016 07/21/2016 Overview: Suspect severe MR from combination of ischemic MR vs functional MR Outside echo not available for review Intraop no MR Plan: Afterload reduce with nitroglycerin infusion Repeat TTE May consider MVR vs repair at time of [facility] Screening for genitourinary condition 04/25/2016 07/17/2016 documented as of this encounter (statuses as of 03/09/2022) [facility] History of Past illness Narrative* Problem Noted Date Resolved Date Absolute anemia 09/10/2017 07/09/2021 Overview: Added automatically from request for surgery [id number] NAVI (acute kidney injury) 07/23/20162016 Overview: History: CVICU Low UO, significant increase in creatinine. Mild hyponatremia. Assessment: SCR normalizing Plan: Loop stopped. monitor DISPOSITION AND FOLLOW-UP 07/23/20162016 Overview: 76yo M from [place], [place]. PT recs home PT/RN - F2F placed. CM aware and following. Will need to follow-up with PCP (called office in attempt to arrange f/u) and Cards. Discharge today 07/27/2016. Pt refused OPD f/u. Postprocedural hypotension 07/21/201607/23 Overview: CI 2.3. Low levo dose. Volume and calcium x1 Preop testing 07/20/2016 09/04/2016 Overview: Images from the original note were not included. [facility] Surgeon: Dr. Morales Informed Consent Completed: Yes STS Score: Procedure: MV Replacement + CAB Risk of Mortality: 7.571% Procedure: CAB Only Risk of Mortality: 1.834% CAD: Yes - CAD on Problem List: Yes Is intended procedure a CABG: Yes - is a beta kyle ordered? Yes H & P completed: Yes PA/LAT: Completed CT: Pending MRI: N/A LE US: N/A Cath: Yes - reviewed: Yes Echo:Completed EKG: Completed EF %: 65 PI's: Completed Carotid: Completed Mapping: Pending Dental: Pending PFT's: Completed Recent Labs 07/20/16 0513 WBC 9.04 HB 13.4 HCT 40.7 PLT 182 CREAT 1.04 UA: pending ABO/ABO Confirmed: pending Blood ordered:TSH SA Swab: Yes - results: Pending Anticoagulation: Aspirin; plavix l.d: 07/17 Op Note: N/A Pacemaker Check: N/A Consults: Urology will ne available for hernandez placement in the OR DM: Yes Cardiac Surgical prep: Yes SIGNATURE: Peg Mitchell CNP DATE of SERVICE: 07/20/2016 TIME of SERVICE: 2:53 PM Chest pain 07/17/2016 07/17/2016 Non-rheumatic mitral regurgitation 07/17/2016 07/21/2016 Overview: Suspect severe MR from combination of ischemic MR vs functional MR Outside echo not available for review Intraop no MR Plan: Afterload reduce with nitroglycerin infusion Repeat TTE May consider MVR vs repair at time of [facility] Screening for genitourinary condition 04/25/2016 07/17/2016 documented as of this encounter (statuses as of 03/17/2022) [facility] History of Past illness Narrative* Problem Noted Date Resolved Date Absolute anemia 09/10/2017 07/09/2021 Overview: Added automatically from request for surgery [id number] NAVI (acute kidney injury) 07/23/20162016 Overview: History: CVICU Low UO, significant increase in creatinine. Mild hyponatremia. Assessment: SCR normalizing Plan: Loop stopped. monitor DISPOSITION AND FOLLOW-UP 07/23/20162016 Overview: 76yo M from [place], [place]. PT recs home PT/RN - F2F placed. CM aware and following. Will need to follow-up with PCP (called office in attempt to arrange f/u) and Cards. Discharge today 07/27/2016. Pt refused OPD f/u. Postprocedural hypotension 07/21/201607/23 Overview: CI 2.3. Low levo dose. Volume and calcium x1 Preop testing 07/20/2016 09/04/2016 Overview: Images from the original note were not included. [facility] Surgeon: Dr. Morales Informed Consent Completed: Yes STS Score: Procedure: MV Replacement + CAB Risk of Mortality: 7.571% Procedure: CAB Only Risk of Mortality: 1.834% CAD: Yes - CAD on Problem List: Yes Is intended procedure a CABG: Yes - is a beta kyle ordered? Yes H & P completed: Yes PA/LAT: Completed CT: Pending MRI: N/A LE US: N/A Cath: Yes - reviewed: Yes Echo:Completed EKG: Completed EF %: 65 PI's: Completed Carotid: Completed Mapping: Pending Dental: Pending PFT's: Completed Recent Labs 07/20/16 0513 WBC 9.04 HB 13.4 HCT 40.7 PLT 182 CREAT 1.04 UA: pending ABO/ABO Confirmed: pending Blood ordered:TSH SA Swab: Yes - results: Pending Anticoagulation: Aspirin; plavix l.d: 07/17 Op Note: N/A Pacemaker Check: N/A Consults: Urology will ne available for hernandez placement in the OR DM: Yes Cardiac Surgical prep: Yes SIGNATURE: Peg Mitchell CNP DATE of SERVICE: 07/20/2016 TIME of SERVICE: 2:53 PM Chest pain 07/17/2016 07/17/2016 Non-rheumatic mitral regurgitation 07/17/2016 07/21/2016 Overview: Suspect severe MR from combination of ischemic MR vs functional MR Outside echo not available for review Intraop no MR Plan: Afterload reduce with nitroglycerin infusion Repeat TTE May consider MVR vs repair at time of [facility] Screening for genitourinary condition 04/25/2016 07/17/2016 documented as of this encounter (statuses as of 03/20/2022) [facility] History of Past illness Narrative* Problem Noted Date Resolved Date Absolute anemia 09/10/2017 07/09/2021 Overview: Added automatically from request for surgery [id number] NAVI (acute kidney injury) 07/23/20162016 Overview: History: CVICU Low UO, significant increase in creatinine. Mild hyponatremia. Assessment: SCR normalizing Plan: Loop stopped. monitor DISPOSITION AND FOLLOW-UP 07/23/20162016 Overview: 76yo M from [place], [place]. PT recs home PT/RN - F2F placed. CM aware and following. Will need to follow-up with PCP (called office in attempt to arrange f/u) and Cards. Discharge today 07/27/2016. Pt refused OPD f/u. Postprocedural hypotension 07/21/201607/23 Overview: CI 2.3. Low levo dose. Volume and calcium x1 Preop testing 07/20/2016 09/04/2016 Overview: Images from the original note were not included. [facility] Surgeon: Dr. Morales Informed Consent Completed: Yes STS Score: Procedure: MV Replacement + CAB Risk of Mortality: 7.571% Procedure: CAB Only Risk of Mortality: 1.834% CAD: Yes - CAD on Problem List: Yes Is intended procedure a CABG: Yes - is a beta kyle ordered? Yes H & P completed: Yes PA/LAT: Completed CT: Pending MRI: N/A LE US: N/A Cath: Yes - reviewed: Yes Echo:Completed EKG: Completed EF %: 65 PI's: Completed Carotid: Completed Mapping: Pending Dental: Pending PFT's: Completed Recent Labs 07/20/16 0513 WBC 9.04 HB 13.4 HCT 40.7 PLT 182 CREAT 1.04 UA: pending ABO/ABO Confirmed: pending Blood ordered:TSH SA Swab: Yes - results: Pending Anticoagulation: Aspirin; plavix l.d: 07/17 Op Note: N/A Pacemaker Check: N/A Consults: Urology will ne available for hernandez placement in the OR DM: Yes Cardiac Surgical prep: Yes SIGNATURE: Peg Mitchell CNP DATE of SERVICE: 07/20/2016 TIME of SERVICE: 2:53 PM Chest pain 07/17/2016 07/17/2016 Non-rheumatic mitral regurgitation 07/17/2016 07/21/2016 Overview: Suspect severe MR from combination of ischemic MR vs functional MR Outside echo not available for review Intraop no MR Plan: Afterload reduce with nitroglycerin infusion Repeat TTE May consider MVR vs repair at time of [facility] Screening for genitourinary condition 04/25/2016 07/17/2016 documented as of this encounter (statuses as of 04/20/2022) [facility] History of Past illness Narrative* Problem Noted Date Resolved Date Absolute anemia 09/10/2017 07/09/2021 Overview: Added automatically from request for surgery [id number] NAVI (acute kidney injury) 07/23/20162016 Overview: History: CVICU Low UO, significant increase in creatinine. Mild hyponatremia. Assessment: SCR normalizing Plan: Loop stopped. monitor DISPOSITION AND FOLLOW-UP 07/23/20162016 Overview: 76yo M from [place], [place]. PT recs home PT/RN - F2F placed. CM aware and following. Will need to follow-up with PCP (called office in attempt to arrange f/u) and Cards. Discharge today 07/27/2016. Pt refused OPD f/u. Postprocedural hypotension 07/21/201607/23 Overview: CI 2.3. Low levo dose. Volume and calcium x1 Preop testing 07/20/2016 09/04/2016 Overview: Images from the original note were not included. [facility] Surgeon: Dr. Morales Informed Consent Completed: Yes STS Score: Procedure: MV Replacement + CAB Risk of Mortality: 7.571% Procedure: CAB Only Risk of Mortality: 1.834% CAD: Yes - CAD on Problem List: Yes Is intended procedure a CABG: Yes - is a beta kyle ordered? Yes H & P completed: Yes PA/LAT: Completed CT: Pending MRI: N/A LE US: N/A Cath: Yes - reviewed: Yes Echo:Completed EKG: Completed EF %: 65 PI's: Completed Carotid: Completed Mapping: Pending Dental: Pending PFT's: Completed Recent Labs 07/20/16 0513 WBC 9.04 HB 13.4 HCT 40.7 PLT 182 CREAT 1.04 UA: pending ABO/ABO Confirmed: pending Blood ordered:TSH SA Swab: Yes - results: Pending Anticoagulation: Aspirin; plavix l.d: 07/17 Op Note: N/A Pacemaker Check: N/A Consults: Urology will ne available for hernandez placement in the OR DM: Yes Cardiac Surgical prep: Yes SIGNATURE: Peg Mitchell CNP DATE of SERVICE: 07/20/2016 TIME of SERVICE: 2:53 PM Chest pain 07/17/2016 07/17/2016 Non-rheumatic mitral regurgitation 07/17/2016 07/21/2016 Overview: Suspect severe MR from combination of ischemic MR vs functional MR Outside echo not available for review Intraop no MR Plan: Afterload reduce with nitroglycerin infusion Repeat TTE May consider MVR vs repair at time of [facility] Screening for genitourinary condition 04/25/2016 07/17/2016 documented as of this encounter (statuses as of 06/02/2022) [facility] History of Past illness Narrative* Problem Noted Date Resolved Date Absolute anemia 09/10/2017 07/09/2021 Overview: Added automatically from request for surgery [id number] NAVI (acute kidney injury) 07/23/20162016 Overview: History: CVICU Low UO, significant increase in creatinine. Mild hyponatremia. Assessment: SCR normalizing Plan: Loop stopped. monitor DISPOSITION AND FOLLOW-UP 07/23/20162016 Overview: 76yo M from [place], [place]. PT recs home PT/RN - F2F placed. CM aware and following. Will need to follow-up with PCP (called office in attempt to arrange f/u) and Cards. Discharge today 07/27/2016. Pt refused OPD f/u. Postprocedural hypotension 07/21/201607/23 Overview: CI 2.3. Low levo dose. Volume and calcium x1 Preop testing 07/20/2016 09/04/2016 Overview: Images from the original note were not included. [facility] Surgeon: Dr. Morales Informed Consent Completed: Yes STS Score: Procedure: MV Replacement + CAB Risk of Mortality: 7.571% Procedure: CAB Only Risk of Mortality: 1.834% CAD: Yes - CAD on Problem List: Yes Is intended procedure a CABG: Yes - is a beta kyle ordered? Yes H & P completed: Yes PA/LAT: Completed CT: Pending MRI: N/A LE US: N/A Cath: Yes - reviewed: Yes Echo:Completed EKG: Completed EF %: 65 PI's: Completed Carotid: Completed Mapping: Pending Dental: Pending PFT's: Completed Recent Labs 07/20/16 0513 WBC 9.04 HB 13.4 HCT 40.7 PLT 182 CREAT 1.04 UA: pending ABO/ABO Confirmed: pending Blood ordered:TSH SA Swab: Yes - results: Pending Anticoagulation: Aspirin; plavix l.d: 07/17 Op Note: N/A Pacemaker Check: N/A Consults: Urology will ne available for hernandez placement in the OR DM: Yes Cardiac Surgical prep: Yes SIGNATURE: Peg Mitchell CNP DATE of SERVICE: 07/20/2016 TIME of SERVICE: 2:53 PM Chest pain 07/17/2016 07/17/2016 Non-rheumatic mitral regurgitation 07/17/2016 07/21/2016 Overview: Suspect severe MR from combination of ischemic MR vs functional MR Outside echo not available for review Intraop no MR Plan: Afterload reduce with nitroglycerin infusion Repeat TTE May consider MVR vs repair at time of [facility] Screening for genitourinary condition 04/25/2016 07/17/2016 documented as of this encounter (statuses as of 06/18/2022) [facility] History of Past illness Narrative* Problem Noted Date Resolved Date Absolute anemia 09/10/2017 07/09/2021 Overview: Added automatically from request for surgery [id number] NAVI (acute kidney injury) 07/23/20162016 Overview: History: CVICU Low UO, significant increase in creatinine. Mild hyponatremia. Assessment: SCR normalizing Plan: Loop stopped. monitor DISPOSITION AND FOLLOW-UP 07/23/20162016 Overview: 76yo M from [place]. PT recs home PT/RN - F2F placed. CM aware and following. Will need to follow-up with PCP (called office in attempt to arrange f/u) and Cards. Discharge today 07/27/2016. Pt refused OPD f/u. Postprocedural hypotension 07/21/201607/23 Overview: CI 2.3. Low levo dose. Volume and calcium x1 Preop testing 07/20/2016 09/04/2016 Overview: Images from the original note were not included. [facility] Surgeon: Dr. Morales Informed Consent Completed: Yes STS Score: Procedure: MV Replacement + CAB Risk of Mortality: 7.571% Procedure: CAB Only Risk of Mortality: 1.834% CAD: Yes - CAD on Problem List: Yes Is intended procedure a CABG: Yes - is a beta kyle ordered? Yes H & P completed: Yes PA/LAT: Completed CT: Pending MRI: N/A LE US: N/A Cath: Yes - reviewed: Yes Echo:Completed EKG: Completed EF %: 65 PI's: Completed Carotid: Completed Mapping: Pending Dental: Pending PFT's: Completed Recent Labs 07/20/16 0513 WBC 9.04 HB 13.4 HCT 40.7 PLT 182 CREAT 1.04 UA: pending ABO/ABO Confirmed: pending Blood ordered:TSH SA Swab: Yes - results: Pending Anticoagulation: Aspirin; plavix l.d: 07/17 Op Note: N/A Pacemaker Check: N/A Consults: Urology will ne available for hernandez placement in the OR DM: Yes Cardiac Surgical prep: Yes SIGNATURE: Peg Mitchell CNP DATE of SERVICE: 07/20/2016 TIME of SERVICE: 2:53 PM Chest pain 07/17/2016 07/17/2016 Non-rheumatic mitral regurgitation 07/17/2016 07/21/2016 Overview: Suspect severe MR from combination of ischemic MR vs functional MR Outside echo not available for review Intraop no MR Plan: Afterload reduce with nitroglycerin infusion Repeat TTE May consider MVR vs repair at time of [facility] Screening for genitourinary condition 04/25/2016 07/17/2016 documented as of this encounter (statuses as of 06/24/2022) [facility] History of Past illness Narrative* Problem Noted Date Resolved Date Absolute anemia 09/10/2017 07/09/2021 Overview: Added automatically from request for surgery [id number] NAVI (acute kidney injury) 07/23/20162016 Overview: History: CVICU Low UO, significant increase in creatinine. Mild hyponatremia. Assessment: SCR normalizing Plan: Loop stopped. monitor DISPOSITION AND FOLLOW-UP 07/23/20162016 Overview: 76yo M from [place]. PT recs home PT/RN - F2F placed. CM aware and following. Will need to follow-up with PCP (called office in attempt to arrange f/u) and Cards. Discharge today 07/27/2016. Pt refused OPD f/u. Postprocedural hypotension 07/21/201607/23 Overview: CI 2.3. Low levo dose. Volume and calcium x1 Preop testing 07/20/2016 09/04/2016 Overview: Images from the original note were not included. [facility] Surgeon: Dr. Morales Informed Consent Completed: Yes STS Score: Procedure: MV Replacement + CAB Risk of Mortality: 7.571% Procedure: CAB Only Risk of Mortality: 1.834% CAD: Yes - CAD on Problem List: Yes Is intended procedure a CABG: Yes - is a beta kyle ordered? Yes H & P completed: Yes PA/LAT: Completed CT: Pending MRI: N/A LE US: N/A Cath: Yes - reviewed: Yes Echo:Completed EKG: Completed EF %: 65 PI's: Completed Carotid: Completed Mapping: Pending Dental: Pending PFT's: Completed Recent Labs 07/20/16 0513 WBC 9.04 HB 13.4 HCT 40.7 PLT 182 CREAT 1.04 UA: pending ABO/ABO Confirmed: pending Blood ordered:TSH SA Swab: Yes - results: Pending Anticoagulation: Aspirin; plavix l.d: 07/17 Op Note: N/A Pacemaker Check: N/A Consults: Urology will ne available for hernandez placement in the OR DM: Yes Cardiac Surgical prep: Yes SIGNATURE: Peg Mitchell CNP DATE of SERVICE: 07/20/2016 TIME of SERVICE: 2:53 PM Chest pain 07/17/2016 07/17/2016 Non-rheumatic mitral regurgitation 07/17/2016 07/21/2016 Overview: Suspect severe MR from combination of ischemic MR vs functional MR Outside echo not available for review Intraop no MR Plan: Afterload reduce with nitroglycerin infusion Repeat TTE May consider MVR vs repair at time of [facility] Screening for genitourinary condition 04/25/2016 07/17/2016 documented as of this encounter (statuses as of 06/30/2022) [facility] History of Past illness Narrative* Problem Noted Date Resolved Date NAVI (acute kidney injury) 07/23/20162016 Overview: History: CVICU Low UO, significant increase in creatinine. Mild hyponatremia. Assessment: SCR normalizing Plan: Loop stopped. monitor DISPOSITION AND FOLLOW-UP 07/23/20162016 Overview: 76yo M from [place]. PT recs home PT/RN - F2F placed. CM aware and following. Will need to follow-up with PCP (called office in attempt to arrange f/u) and Cards. Discharge today 07/27/2016. Pt refused OPD f/u. Postprocedural hypotension 07/21/201607/23 Overview: CI 2.3. Low levo dose. Volume and calcium x1 Preop testing 07/20/2016 09/04/2016 Overview: Images from the original note were not included. [facility] Surgeon: Dr. Morales Informed Consent Completed: Yes STS Score: Procedure: MV Replacement + CAB Risk of Mortality: 7.571% Procedure: CAB Only Risk of Mortality: 1.834% CAD: Yes - CAD on Problem List: Yes Is intended procedure a CABG: Yes - is a beta kyle ordered? Yes H & P completed: Yes PA/LAT: Completed CT: Pending MRI: N/A LE US: N/A Cath: Yes - reviewed: Yes Echo:Completed EKG: Completed EF %: 65 PI's: Completed Carotid: Completed Mapping: Pending Dental: Pending PFT's: Completed Recent Labs 07/20/16 0513 WBC 9.04 HB 13.4 HCT 40.7 PLT 182 CREAT 1.04 UA: pending ABO/ABO Confirmed: pending Blood ordered:TSH SA Swab: Yes - results: Pending Anticoagulation: Aspirin; plavix l.d: 07/17 Op Note: N/A Pacemaker Check: N/A Consults: Urology will ne available for hernandez placement in the OR DM: Yes Cardiac Surgical prep: Yes SIGNATURE: Peg Mitchell CNP DATE of SERVICE: 07/20/2016 TIME of SERVICE: 2:53 PM Chest pain 07/17/2016 07/17/2016 Non-rheumatic mitral regurgitation 07/17/2016 07/21/2016 Overview: Suspect severe MR from combination of ischemic MR vs functional MR Outside echo not available for review Intraop no MR Plan: Afterload reduce with nitroglycerin infusion Repeat TTE May consider MVR vs repair at time of [facility] Screening for genitourinary condition 04/25/2016 07/17/2016 documented as of this encounter (statuses [facility] of 2021) [facility] Diagnosis Parkinson disease (HCC) Paralysis agitans [facility]* Diagnosis Parkinson disease (HCC)- Primary Paralysis agitans Cough Primary hypertension Unspecified essential hypertension CAD in [place] artery Coronary atherosclerosis of [place] coronary artery 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) Diabetic polyneuropathy associated with type 2 diabetes mellitus (HCC) PIEDAD (obstructive sleep apnea) Obstructive sleep apnea (adult) (pediatric) Malignant neoplasm of overlapping sites of bladder (HCC) Malignant neoplasm of other specified sites of bladder Diabetes mellitus with microalbuminuria (HCC) Malignant neoplasm of prostate (HCC) Malignant neoplasm of prostate Penile cancer (HCC) Malignant neoplasm of penis, part unspecified [facility]* Diagnosis Onychomycosis- Primary Dermatophytosis of nail Pain in toe of left foot Pain in limb Pain in toe of right foot Pain in limb Controlled type 2 diabetes mellitus without complication, with long-term current use of insulin (HCC) [facility]* Diagnosis RLS (restless legs syndrome) Restless legs syndrome (RLS) [facility] Parkinson disease ([facility])- Primary Paralysis agitans PIEDAD (obstructive sleep apnea) Obstructive sleep apnea (adult) (pediatric) RLS (restless legs syndrome) Restless legs syndrome (RLS) Diabetic polyneuropathy associated with type 2 diabetes mellitus (HCC) [facility]* Diagnosis 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) Type II or unspecified type diabetes mellitus with peripheral circulatory disorders, not stated as uncontrolled [facility] Primary hypertension Unspecified essential hypertension [facility] Diagnosis Onychomycosis- Primary Dermatophytosis of nail Pain in toe of left foot Pain in limb Pain in toe of right foot Pain in limb Controlled type 2 diabetes mellitus without complication, with long-term current use of insulin ([facility]) [facility] Diagnosis Primary hypertension Unspecified essential hypertension Cough CAD in [place] artery Coronary atherosclerosis of [place] coronary artery 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) Type II or unspecified type diabetes mellitus with peripheral circulatory disorders, not stated as uncontrolled [facility] Diagnosis Parkinson disease (HCC) Paralysis agitans RLS (restless legs syndrome) Restless legs syndrome (RLS) [facility] Diagnosis Diabetic polyneuropathy associated with type 2 diabetes mellitus (HCC)- Primary Encounter for immunization Need for other specified prophylactic vaccination against single bacterial disease Hoarseness Dysphonia Parkinson disease (HCC) Paralysis agitans 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) Primary hypertension Unspecified essential hypertension PIEDAD (obstructive sleep apnea) Obstructive sleep apnea (adult) (pediatric) Malignant neoplasm of prostate (HCC) Malignant neoplasm of prostate Iron deficiency anemia, unspecified iron deficiency anemia type Ataxia Lack of coordination Malignant neoplasm of overlapping sites of bladder (HCC) Malignant neoplasm of other specified sites of bladder Screening for prostate cancer Special screening for malignant neoplasm of prostate Penile cancer (HCC) Malignant neoplasm of penis, part unspecified [facility] Diagnosis Parkinson's disease (HCC)- Primary Paralysis agitans Parkinson disease (HCC) Paralysis agitans RLS (restless legs syndrome) Restless legs syndrome (RLS) PIEDAD (obstructive sleep apnea) Obstructive sleep apnea (adult) (pediatric) Diabetic polyneuropathy associated with type 2 diabetes mellitus (HCC) [facility]* Diagnosis Onychomycosis- Primary Dermatophytosis of nail Pain in toe of left foot Pain in limb Pain in toe of right foot Pain in limb Controlled type 2 diabetes mellitus without complication, with long-term current use of insulin ([facility]) [facility] Diagnosis Generalized weakness- Primary Other malaise and fatigue Ataxia Lack of coordination Fall, subsequent encounter [facility] Diagnosis Onychomycosis- Primary Dermatophytosis of nail Pain in toe of left foot Pain in limb Pain in toe of right foot Pain in limb Controlled type 2 diabetes mellitus without complication, with long-term current use of insulin ([facility]) Dermatitis Contact dermatitis and other eczema, due to unspecified cause [facility] Diagnosis Parkinson's disease (HCC)- Primary Paralysis agitans Dysphagia, unspecified type Abnormality of gait Diabetic polyneuropathy associated with type 2 diabetes mellitus (HCC) RLS (restless legs syndrome) Restless legs syndrome (RLS) PIEDAD (obstructive sleep apnea) Obstructive sleep apnea (adult) (pediatric) Parkinson disease (HCC) Paralysis agitans [facility]* Diagnosis Diabetic polyneuropathy associated with type 2 diabetes mellitus (HCC)- Primary 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) Type II or unspecified type diabetes mellitus with peripheral circulatory disorders, not stated as uncontrolled Malignant neoplasm of overlapping sites of bladder (HCC) Malignant neoplasm of other specified sites of bladder 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) RLS (restless legs syndrome) Restless legs syndrome (RLS) Parkinson disease (HCC) Paralysis agitans PAD (peripheral artery disease) (HCC) Peripheral vascular disease, unspecified Primary hypertension Unspecified essential hypertension Atherosclerosis of kashia coronary artery with unstable angina pectoris, unspecified whether kashia or transplanted heart (HCC) Diabetes mellitus with microalbuminuria (HCC) Malignant neoplasm of prostate (HCC) Malignant neoplasm of prostate Screening for prostate cancer Special screening for malignant neoplasm of prostate [facility] Diagnosis Anemia, unspecified type- Primary [facility] Diagnosis Parkinson disease (HCC)- Primary Paralysis agitans Diabetic polyneuropathy associated with type 2 diabetes mellitus (HCC) Ataxia Lack of coordination 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) Type II or unspecified type diabetes mellitus with peripheral circulatory disorders, not stated as uncontrolled Primary hypertension Unspecified essential hypertension 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) Iron deficiency anemia, unspecified iron deficiency anemia type [facility] Diagnosis RLS (restless legs syndrome) Restless legs syndrome (RLS) [facility] Diagnosis Primary hypertension Unspecified essential hypertension Cough [facility] Diagnosis Parkinson disease (HCC) Paralysis agitans [facility] Diagnosis Parkinson disease (HCC)- Primary Paralysis agitans Abnormality of gait Diabetic polyneuropathy associated with type 2 diabetes mellitus (HCC) RLS (restless legs syndrome) Restless legs syndrome (RLS) PIEDAD (obstructive sleep apnea) Obstructive sleep apnea (adult) (pediatric) [facility]* Diagnosis Diabetic polyneuropathy associated with type 2 diabetes mellitus (HCC)- Primary Parkinson's disease with fluctuating manifestations, unspecified whether dyskinesia present Atherosclerosis of kashia coronary artery with unstable angina pectoris, unspecified whether kashia or transplanted heart (HCC) Primary hypertension Unspecified essential hypertension Malignant neoplasm of overlapping sites of bladder (HCC) Malignant neoplasm of other specified sites of bladder Diabetes mellitus with microalbuminuria (HCC) Malignant neoplasm of prostate (HCC) Malignant neoplasm of prostate Penile cancer (HCC) Malignant neoplasm of penis, part unspecified PIEDAD (obstructive sleep apnea) Obstructive sleep apnea (adult) (pediatric) PAD (peripheral artery disease) (HCC) Peripheral vascular disease, unspecified Iron deficiency anemia, unspecified iron deficiency anemia type Dyslipidemia Other and unspecified hyperlipidemia Spinal stenosis in cervical region Screening for prostate cancer Special screening for malignant neoplasm of prostate [facility] Diagnosis Anemia, unspecified type- Primary [facility]* Diagnosis Onychomycosis- Primary Dermatophytosis of nail Pain in toe of left foot Pain in limb Pain in toe of right foot Pain in limb Controlled type 2 diabetes mellitus without complication, with long-term current use of insulin (HCC) Xerosis cutis Other specified disease of sebaceous glands [facility] Diagnosis Anemia due to other cause, not classified [facility]* Diagnosis 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) Type II or unspecified type diabetes mellitus with peripheral circulatory disorders, not stated as uncontrolled CAD in kashia artery Coronary atherosclerosis of kashia coronary artery [facility] Summary Purpose Family History No Family History Records FoundNo Family History Records FoundNo Family History Records FoundNo Family History Records Found Advance Directives No Advanced Directives Records FoundDocuments on File Type Date Recorded Patient Software Publisher Expl anation Advance Directive(s) 09/21/2017 6:08 AM Advance Directive(s) 09/21/2017 6:15 AM Advance Directive(s) 10/27/2016 6:14 AM Advance Directive(s) 07/18/2016 12:10 PM Documents on File Type Date Recorded Patient Software Publisher Expl anation Advance Directive(s) 09/21/2017 6:15 AM Documents on File Type Date Recorded Patient Software Publisher Expl anation Advance Directive(s) 09/21/2017 6:15 AM Documents on File Type Date Recorded Patient Software Publisher Expl anation Advance Directive(s) 09/24/2022 3:27 PM Reason for Referral Specialty Diagnoses / Procedures Referred By Contac t Referred To Contact Urology Diagnoses Malignant neoplasm of prostate (HCC) Malignant neoplasm of overlapping sites of bladder (HCC) Screening for prostate cancer Penile cancer (HCC) Procedures CONSULT TO UROLOGY OFFICE/OUTPATIENT [facility] 60-74 MINUTES Eliceo Drummond MD [address] [place] [id number] Referral ID Status Reason Start Date Expiration Date Visits Requested Visits Authorized [id number] Authorized PCP Requested Referral 2 01/13/2023 1 1 Specialty Diagnoses / Procedures Referred By Contac t Referred To Contact Ent - Otolaryngology Diagnoses Hoarseness Procedures CONSULT TO ENT OFFICE/OUTPATIENT [facility] 60-74 MINUTES Eliceo Drummond MD [address] [place] [id number] Referral ID Status Reason Start Date Expiration Date Visits Requested Visits Authorized [id number] Authorized PCP Requested Referral 2 01/13/2023 1 1 Specialty Diagnoses / Procedures Referred By Contac t Referred To Contact [facility] Diagnoses Parkinson's disease (HCC) Procedures CONSULT TO COMPUTER APPLICATIONS INSTRUCTOR OCCUPATIONAL THERAPY EVAL HIGH COMPLEX 60 MINS Janine Root PA-C [address] [place] [address] [facility] [address] [address] Referral ID Status Reason Start Date Expiration Date Visits Requested Visits Authorized [id number] Authorized PCP Requested Referral Auto-Generate d Referral 2 03/09/2023 99 99 Specialty Diagnoses / Procedures Referred By Contac t Referred To Contact [facility] Diagnoses Parkinson's disease (HCC) Procedures CONSULT TO PHYSICAL THERAPY PHYSICAL THERAPY EVALUATION HIGH COMPLEX 45 MINS Janine Root PA-C [address] [place] [address] [address] Referral ID Status Reason Start Date Expiration Date Visits Requested Visits Authorized [id number] Authorized PCP Requested Referral Auto-Generate d Referral 2 03/09/2023 99 99 Specialty Diagnoses / Procedures Referred By Contac t Referred To Contact [facility] Diagnoses Generalized weakness Ataxia Fall, subsequent encounter Procedures CONSULT TO PHYSICAL THERAPY PHYSICAL THERAPY EVALUATION HIGH COMPLEX 45 MINS Eliceo Drummond MD [address] [place] [address] [address] Referral ID Status Reason Start Date Expiration Date Visits Requested Visits Authorized [id number] Authorized PCP Requested Referral Auto-Generate d Referral 06/01/2022 06/01/2023 99 99 Specialty Diagnoses / Procedures Referred By Contac t Referred To Contact Diagnoses Parkinson's disease (HCC) Dysphagia, unspecified type Procedures CONSULT TO SPEECH THERAPY Eliceo Khan Jr., MD [address] [place] [phone] Referral ID Status Reason Start Date Expiration Date Visits Requested Visits Authorized [id number] Authorized PCP Requested Referral 06/29/2022 09/27/2022 99 99 Additional Source Comments (unrecognized sect ion and content) No Status Records FoundNo Status Records FoundNo Status Records FoundNo Status Records Found INFORMATION SOURCE (unrecogn ized section and content) DATE CREATED AUTHOR AUTHOR'S ORGANIZ ATION 04/06/2020 [facility] DATE CREATED AUTHOR AUTHOR'S ORGANIZ ATION 02/18/2021 [facility] DATE CREATED AUTHOR AUTHOR'S ORGANIZ ATION 04/11/2023 [facility] Source Comments (unrecognize d section and content) In the event this informatio n is protected by the Federal Confidentiality of Alcohol and Drug Abuse Patient Records regulations: The Federal rules restrict any use of the information to criminally investigate or prosecute any alcohol or drug abuse patient.[facility] the event this information is protected by the Federal Confidentiality of Alcohol and Drug Abuse Patient Records regulations: The Federal rules restrict any use of the information to criminally investigate or prosecute any alcohol or drug abuse patient.[facility] the event this information is protected by the Federal Confidentiality of Alcohol and Drug Abuse Patient Records regulations: The Federal rules restrict any use of the information to criminally investigate or prosecute any alcohol or drug abuse patient.[facility] the event this information is protected by the Federal Confidentiality of Alcohol and Drug Abuse Patient Records regulations: The Federal rules restrict any use of the information to criminally investigate or prosecute any alcohol or drug abuse patient.[facility] the event this information is protected by the Federal Confidentiality of Alcohol and Drug Abuse Patient Records regulations: The Federal rules restrict any use of the information to criminally investigate or prosecute any alcohol or drug abuse patient.[facility] the event this information is protected by the Federal Confidentiality of Alcohol and Drug Abuse Patient Records regulations: The Federal rules restrict any use of the information to criminally investigate or prosecute any alcohol or drug abuse patient.[facility] the event this information is protected by the Federal Confidentiality of Alcohol and Drug Abuse Patient Records regulations: The Federal rules restrict any use of the information to criminally investigate or prosecute any alcohol or drug abuse patient.[facility] the event this information is protected by the Federal Confidentiality of Alcohol and Drug Abuse Patient Records regulations: The Federal rules restrict any use of the information to criminally investigate or prosecute any alcohol or drug abuse patient.[facility] the event this information is protected by the Federal Confidentiality of Alcohol and Drug Abuse Patient Records regulations: The Federal rules restrict any use of the information to criminally investigate or prosecute any alcohol or drug abuse patient.[facility] the event this information is protected by the Federal Confidentiality of Alcohol and Drug Abuse Patient Records regulations: The Federal rules restrict any use of the information to criminally investigate or prosecute any alcohol or drug abuse patient.[facility] the event this information is protected by the Federal Confidentiality of Alcohol and Drug Abuse Patient Records regulations: The Federal rules restrict any use of the information to criminally investigate or prosecute any alcohol or drug abuse patient.[facility] the event this information is protected by the Federal Confidentiality of Alcohol and Drug Abuse Patient Records regulations: The Federal rules restrict any use of the information to criminally investigate or prosecute any alcohol or drug abuse patient.[facility] the event this information is protected by the Federal Confidentiality of Alcohol and Drug Abuse Patient Records regulations: The Federal rules restrict any use of the information to criminally investigate or prosecute any alcohol or drug abuse patient.[facility] the event this information is protected by the Federal Confidentiality of Alcohol and Drug Abuse Patient Records regulations: The Federal rules restrict any use of the information to criminally investigate or prosecute any alcohol or drug abuse patient.[facility] the event this information is protected by the Federal Confidentiality of Alcohol and Drug Abuse Patient Records regulations: The Federal rules restrict any use of the information to criminally investigate or prosecute any alcohol or drug abuse patient.[facility] the event this information is protected by the Federal Confidentiality of Alcohol and Drug Abuse Patient Records regulations: The Federal rules restrict any use of the information to criminally investigate or prosecute any alcohol or drug abuse patient.[facility] the event this information is protected by the Federal Confidentiality of Alcohol and Drug Abuse Patient Records regulations: The Federal rules restrict any use of the information to criminally investigate or prosecute any alcohol or drug abuse patient.[facility] the event this information is protected by the Federal Confidentiality of Alcohol and Drug Abuse Patient Records regulations: The Federal rules restrict any use of the information to criminally investigate or prosecute any alcohol or drug abuse patient.[facility] the event this information is protected by the Federal Confidentiality of Alcohol and Drug Abuse Patient Records regulations: The Federal rules restrict any use of the information to criminally investigate or prosecute any alcohol or drug abuse patient.[facility] the event this information is protected by the Federal Confidentiality of Alcohol and Drug Abuse Patient Records regulations: The Federal rules restrict any use of the information to criminally investigate or prosecute any alcohol or drug abuse patient.[facility] the event this information is protected by the Federal Confidentiality of Alcohol and Drug Abuse Patient Records regulations: The Federal rules restrict any use of the information to criminally investigate or prosecute any alcohol or drug abuse patient.[facility] the event this information is protected by the Federal Confidentiality of Alcohol and Drug Abuse Patient Records regulations: The Federal rules restrict any use of the information to criminally investigate or prosecute any alcohol or drug abuse patient.[facility] the event this information is protected by the Federal Confidentiality of Alcohol and Drug Abuse Patient Records regulations: The Federal rules restrict any use of the information to criminally investigate or prosecute any alcohol or drug abuse patient.[facility] the event this information is protected by the Federal Confidentiality of Alcohol and Drug Abuse Patient Records regulations: The Federal rules restrict any use of the information to criminally investigate or prosecute any alcohol or drug abuse patient.[facility] the event this information is protected by the Federal Confidentiality of Alcohol and Drug Abuse Patient Records regulations: The Federal rules restrict any use of the information to criminally investigate or prosecute any alcohol or drug abuse patient.[facility] the event this information is protected by the Federal Confidentiality of Alcohol and Drug Abuse Patient Records regulations: The Federal rules restrict any use of the information to criminally investigate or prosecute any alcohol or drug abuse patient.[facility] the event this information is protected by the Federal Confidentiality of Alcohol and Drug Abuse Patient Records regulations: The Federal rules restrict any use of the information to criminally investigate or prosecute any alcohol or drug abuse patient.[facility] the event this information is protected by the Federal Confidentiality of Alcohol and Drug Abuse Patient Records regulations: The Federal rules restrict any use of the information to criminally investigate or prosecute any alcohol or drug abuse patient.[facility]In the event this information is protected by the Federal Confidentiality of Alcohol and Drug Abuse Patient Records regulations: The Federal rules restrict any use of the information to criminally investigate or prosecute any alcohol or drug abuse patient.[facility]In the event this information is protected by the Federal Confidentiality of Alcohol and Drug Abuse Patient Records regulations: The Federal rules restrict any use of the information to criminally investigate or prosecute any alcohol or drug abuse patient.[facility] the event this information is protected by the Federal Confidentiality of Alcohol and Drug Abuse Patient Records regulations: The Federal rules restrict any use of the information to criminally investigate or prosecute any alcohol or drug abuse patient.[facility]In the event this information is protected by the Federal Confidentiality of Alcohol and Drug Abuse Patient Records regulations: The Federal rules restrict any use of the information to criminally investigate or prosecute any alcohol or drug abuse patient.[facility] the event this information is protected by the Federal Confidentiality of Alcohol and Drug Abuse Patient Records regulations: The Federal rules restrict any use of the information to criminally investigate or prosecute any alcohol or drug abuse patient.[facility] the event this information is protected by the Federal Confidentiality of Alcohol and Drug Abuse Patient Records regulations: The Federal rules restrict any use of the information to criminally investigate or prosecute any alcohol or drug abuse patient.[facility] the event this information is protected by the Federal Confidentiality of Alcohol and Drug Abuse Patient Records regulations: The Federal rules restrict any use of the information to criminally investigate or prosecute any alcohol or drug abuse patient.[facility] the event this information is protected by the Federal Confidentiality of Alcohol and Drug Abuse Patient Records regulations: The Federal rules restrict any use of the information to criminally investigate or prosecute any alcohol or drug abuse patient.[facility] the event this information is protected by the Federal Confidentiality of Alcohol and Drug Abuse Patient Records regulations: The Federal rules restrict any use of the information to criminally investigate or prosecute any alcohol or drug abuse patient.[facility] the event this information is protected by the Federal Confidentiality of Alcohol and Drug Abuse Patient Records regulations: The Federal rules restrict any use of the information to criminally investigate or prosecute any alcohol or drug abuse patient.[facility] the event this information is protected by the Federal Confidentiality of Alcohol and Drug Abuse Patient Records regulations: The Federal rules restrict any use of the information to criminally investigate or prosecute any alcohol or drug abuse patient.[facility]In the event this information is protected by the Federal Confidentiality of Alcohol and Drug Abuse Patient Records regulations: The Federal rules restrict any use of the information to criminally investigate or prosecute any alcohol or drug abuse patient.[facility]In the event this information is protected by the Federal Confidentiality of Alcohol and Drug Abuse Patient Records regulations: The Federal rules restrict any use of the information to criminally investigate or prosecute any alcohol or drug abuse patient.[facility]In the event this information is protected by the Federal Confidentiality of Alcohol and Drug Abuse Patient Records regulations: The Federal rules restrict any use of the information to criminally investigate or prosecute any alcohol or drug abuse patient.[facility]In the event this information is protected by the Federal Confidentiality of Alcohol and Drug Abuse Patient Records regulations: The Federal rules restrict any use of the information to criminally investigate or prosecute any alcohol or drug abuse patient.[facility]In the event this information is protected by the Federal Confidentiality of Alcohol and Drug Abuse Patient Records regulations: The Federal rules restrict any use of the information to criminally investigate or prosecute any alcohol or drug abuse patient.[facility]In the event this information is protected by the Federal Confidentiality of Alcohol and Drug Abuse Patient Records regulations: The Federal rules restrict any use of the information to criminally investigate or prosecute any alcohol or drug abuse patient.[facility]In the event this information is protected by the Federal Confidentiality of Alcohol and Drug Abuse Patient Records regulations: The Federal rules restrict any use of the information to criminally investigate or prosecute any alcohol or drug abuse patient.[facility]In the event this information is protected by the Federal Confidentiality of Alcohol and Drug Abuse Patient Records regulations: The Federal rules restrict any use of the information to criminally investigate or prosecute any alcohol or drug abuse patient.[facility] Reason for Visit (unrecogniz ed section and content) Reason Comments 6 Month Exam Reason Comments Follow Up Diabetic Foot Care Reason Comments Established [facility] 3 month follow up Reason Comments Medication Request Reason Onset Date Comments Refill Request 09/16/2021 Reason Onset Date Comments Refill Request 10/02/2021 Reason Comments Established Patient Diabetic Foot Care Reason Onset Date Comments Refill Request 12/03/2021 Reason Comments 6 Month Exam Reason Comments Follow Up 6 month follow up Reason Comments Established Patient Follow Up nail care Reason Comments Orders PT Eval and Tx order s Reason Comments Established Patient Follow Up Diabetic Foot Care Reason Comments Forms Reason Comments Follow Up Reason Comments Orders Reason Comments Results Reason Comments Patient Update Reason Comments Hospital F/U Reason Comments Appointment Reason Comments Release Of Medical Records Reason Onset Date Comments Refill Request 10/28/2022 Reason Comments Follow Up Pt presented with Da kseniay (daughter) resided [facility], recent fall x2 wks, currently PT. Reason Comments Follow Up Reason Comments Letter request for taxes Care Teams (unrecognized sec tion and content) [employer] Relationship Specialty Start Date End Date Eliceo Drummond MD [address] [place], [place] [id number] PCP - General Family Practice 09/07/16 Kunal Morales MD [address] [facility] [place] [place] [id number] Referring Thoracic Surgery 08/04/16 Alice Mendoza MD, [address] [place] [address] Physician Radiation Oncology 09/12/19 [facility] 07/29/16 [employer] Relationship Specialty Start Date End Date Eliceo Drummond MD [address] [place] [address] PCP - General [facility] Practice 09/07/16 Kunal Morales MD [address] [place] [address] Referring Thoracic Surgery 08/04/16 Alice Mendoza MD, [address] [facility] [place] [address] Physician Radiation Oncology 09/12/19 [facility] 07/29/16 [employer] Relationship Specialty Start Date End Date Eliceo Drummond MD [address] [place] [address] PCP - General Family Practice 09/07/16 Kunal Morales MD [address] [place] [address] Referring Thoracic Surgery 08/04/16 Alice Mendoza MD, [address] [place] [address] Physician Radiation Oncology 09/12/19 [facility] 07/29/16 [employer] Relationship Specialty Start Date End Date Eliceo Drummond MD [address] [place] [address] PCP - General Family Practice 09/07/16 Kunal Morales MD [address] [place], [place] [id number] Referring Thoracic Surgery 08/04/16 Alice Mendoza MD, [address] [facility] [place] [address] Physician Radiation Oncology 09/12/19 [facility] 07/29/16 [employer] Relationship Specialty Start Date End Date Eliceo Drummond MD [address] [place] [address] PCP - General Family Practice 09/07/16 Kunal Morales MD [address] [place] [address] Referring Thoracic Surgery 08/04/16 Alice Mendoza MD, [address] [place] [address] Physician Radiation Oncology 09/12/19 [facility] 07/29/16 [employer]crew Foreman Relationship Specialty Start Date End Date Eliceo Drummond MD [address] [place] [address] PCP - General Family Practice 09/07/16 Kunal Morales MD [address] [place] [address] Referring Thoracic Surgery 08/04/16 Alice Mendoza MD, [address] [place] [address] Physician Radiation Oncology 09/12/19 [facility] 07/29/16 Handcrew Foreman Relationship Specialty Start Date End Date Eliceo Drummond MD [address] [place] [address] PCP - General Family Practice 09/07/16 Kunal Morales MD [address] [place] [address] Referring Thoracic Surgery 08/04/16 Alice Mendoza MD, [address] [place] [address] Physician Radiation Oncology 09/12/19 [facility] 07/29/16 Handcrew Foreman Relationship Specialty Start Date End Date Eliceo Drummond MD [address] [place] [address] PCP - General Family Practice 09/07/16 Kunal Morales MD [address] [place] [address] Referring Thoracic Surgery 08/04/16 Alice Mendoza MD, [address] [place] [address] Physician Radiation Oncology 09/12/19 [facility] 07/29/16 Handcrew Foreman Relationship Specialty Start Date End Date Eliceo Drummond MD [address] [place] [address] PCP - General Family Practice 09/07/16 Kunal Morales MD [address] [place] [address] Referring Thoracic Surgery 08/04/16 Alice Mendoza MD, [address] [place] [address] Physician Radiation Oncology 09/12/19 [facility] 07/29/16 [employer]crew Foreman Relationship Specialty Start Date End Date Eliceo Drummond MD [address] [place] [address] PCP - General Family Practice 09/07/16 Kunal Morales MD [address] [place], [place] [id number] Referring Thoracic Surgery 08/04/16 Alice Mendoza MD, [address] [place] [address] Physician Radiation Oncology 09/12/19 [facility] 07/29/16 Handcrew Foreman Relationship Specialty Start Date End Date Eliceo Drummond MD [address] [place] [address] PCP - General Family Medicine 09/07/16 Kunal Morales MD [address] [facility] [place] [address] Referring Thoracic Surgery 08/04/16 Alice Mendoza MD, [address] [facility] [place] [address] Physician Radiation Oncology 09/12/19 [facility] 07/29/16 Handcrew Foreman Relationship Specialty Start Date End Date Eliceo Drummond MD [address] [place] [address] PCP - General Family Medicine 09/07/16 Kunal Morales MD [address] [place] [address] Referring Thoracic Surgery 08/04/16 Alice Mendoza MD, [address] [place] [address] Physician Radiation Oncology 09/12/19 [facility] 07/29/16 [employer]crew Foreman Relationship Specialty Start Date End Date Eliceo Drummond MD [address] [place] [address] PCP - General Family Medicine 09/07/16 Kunal Morales MD [address] [place], [place] [address] Referring Thoracic Surgery 08/04/16 Alice Mendoza MD, [address] [place] [address] Physician Radiation Oncology 09/12/19 [facility] 07/29/16 [employer]crew Foreman Relationship Specialty Start Date End Date Eliceo Drummond MD [address] [place] [address] PCP - General Family Medicine 09/07/16 Kunal Morales MD [address] [place] [address] Referring Thoracic Surgery 08/04/16 Alice Mendoza MD, [address] [place] [address] Physician Radiation Oncology 09/12/19 [facility] 07/29/16 Handcrew Foreman Relationship Specialty Start Date End Date Eliceo Drummond MD [address] [place] [address] PCP - General Family Medicine 09/07/16 Kunal Morales MD [address] [place] [address] Referring Thoracic Surgery 08/04/16 Alice Mendoza MD, [address] [place] [address] Physician Radiation Oncology 09/12/19 [facility] 07/29/16 Handcrew Foreman Relationship Specialty Start Date End Date Eliceo Drummond MD [address] [place] [address] PCP - General Family Medicine 09/07/16 Kunal Morales MD [address] [place], [place] [id number] Referring Thoracic Surgery 08/04/16 Alice Mendoza MD, [address] [facility] [place] [address] Physician Radiation Oncology 09/12/19 [facility] 07/29/16 Handcrew Foreman Relationship Specialty Start Date End Date Eliceo Drummond MD [address] [place] [address] PCP - General Family Medicine 09/07/16 Kunal Morales MD [address] [place] [address] Referring Thoracic Surgery 08/04/16 Alice Mendoza MD, [address] [place] [address] Physician Radiation Oncology 09/12/19 [facility] 07/29/16 Handcrew Foreman Relationship Specialty Start Date End Date Eliceo Drummond MD [address] [place] [address] PCP - General Family Medicine 09/07/16 Kunal Morales MD [address] [place] [address] Referring Thoracic Surgery 08/04/16 Alice Mendoza MD, [address] [place] [address] Physician Radiation Oncology 09/12/19 [facility] 07/29/16 Handcrew Foreman Relationship Specialty Start Date End Date Eliceo Drummond MD [address] [place] [address] PCP - General Family Medicine 09/07/16 Kunal Morales MD [address] [facility] [place] [address] Referring Thoracic Surgery 08/04/16 Alice Mendoza MD, [address] [place] [address] Physician Radiation Oncology 09/12/19 [facility] 07/29/16 Handcrew Foreman Relationship Specialty Start Date End Date Eliceo Drummond MD [address] [place] [address] PCP - General Family Medicine 09/07/16 Kunal Morales MD [address] [place] [address] Referring Thoracic Surgery 08/04/16 Alice Mendoza MD, [address] [place] [address] Physician Radiation Oncology 09/12/19 [facility] 07/29/16 Handcrew Foreman Relationship Specialty Start Date End Date Eliceo Drummond MD [address] [place] [address] PCP - General Family Medicine 09/07/16 Kunal Morales MD [address] [place], [place] [address] Referring Thoracic Surgery 08/04/16 Alice Mendoza MD, [address] [place] [address] Physician Radiation Oncology 09/12/19 [facility] 07/29/16 Handcrew Foreman Relationship Specialty Start Date End Date Eliceo Drummond MD [address] [place] [address] PCP - General Family Medicine 09/07/16 Kunal Morales MD [address] [facility] [place], [place] [address] Referring Thoracic Surgery 08/04/16 Alice Mendoza MD, [address] [place] [address] Physician Radiation Oncology 09/12/19 [facility] 07/29/16 Handcrew Foreman Relationship Specialty Start Date End Date Eliceo Drummond MD [address] [place] [address] PCP - General Family Medicine 09/07/16 Kunal Morales MD [address] [facility] [place] [address] Referring Thoracic Surgery 08/04/16 Alice Mendoza MD, [address] [place] [address] Physician Radiation Oncology 09/12/19 [facility] 07/29/16 Handcrew Foreman Relationship Specialty Start Date End Date Eliceo Drummond MD [address] [place] [address] PCP - General Family Medicine 09/07/16 Kunal Morales MD [address] [place] [address] Referring Thoracic Surgery 08/04/16 Alice Mendoza MD, [address] [place] [address] Physician Radiation Oncology 09/12/19 [facility] 07/29/16 Handcrew Foreman Relationship Specialty Start Date End Date Eliceo Drummond MD [address] [place] [address] PCP - General Family Medicine 09/07/16 Kunal Morales MD [address] [place] [address] Referring Thoracic Surgery 08/04/16 Alice Mendoza MD, [address] [place] [address] Physician Radiation Oncology 09/12/19 [facility] 07/29/16 Handcrew Foreman Relationship Specialty Start Date End Date Eliceo Drummond MD [address] [place] [address] PCP - General Family Medicine 09/07/16 Kunal Morales MD [address] [facility] [place] [address] Referring Thoracic Surgery 08/04/16 Alice Mendoza MD, [address] [place], [place] [address] Physician Radiation Oncology 09/12/19 [facility] 07/29/16 Handcrew Foreman Relationship Specialty Start Date End Date Eliceo Drummond MD [address] [facility] [place] [address] PCP - General Family Medicine 09/07/16 Kunal Morales MD [address] [place] [address] Referring Thoracic Surgery 08/04/16 Alice Mendoza MD, [address] [place], [place] [address] Physician Radiation Oncology 09/12/19 [facility] 07/29/16 Handcrew Foreman Relationship Specialty Start Date End Date Eliceo Drummond MD [address] [facility] [place] [address] PCP - General Family Medicine 09/07/16 Kunal Morales MD [address] [place] [address] Referring Thoracic Surgery 08/04/16 Alice Mendoza MD, [address] [place] [address] Physician Radiation Oncology 09/12/19 [facility] 07/29/16 Handcrew Foreman Relationship Specialty Start Date End Date Eliceo Drummond MD [address] [place], [place] 278[address] PCP - General Family Medicine 09/07/16 Kunal Morales MD [address] [place] [address] Referring Thoracic Surgery 08/04/16 Alice Mendoza MD, MD [address] [place] [address] Physician Radiation Oncology 09/12/19 [facility] 07/29/16 Handcrew Foreman Relationship Specialty Start Date End Date Eliceo Drummond MD [address] [place] [address] PCP - General Family Medicine 09/07/16 Kunal Morales MD [address] [place] [address] Referring Thoracic Surgery 08/04/16 Alice Menodza MD, MD [address] [place] [address] Physician Radiation Oncology 09/12/19 [facility] 07/29/16 Handcrew Foreman Relationship Specialty Start Date End Date Eliceo Drummond MD [address] [place] [address] PCP - General Family Medicine 09/07/16 Kunal Morales MD [address] [place], [place] [address] Referring Thoracic Surgery 08/04/16 Alice Mendoza MD, MD [address] [place] [address] Physician Radiation Oncology 09/12/19 [facility] 07/29/16 Handcrew Foreman Relationship Specialty Start Date End Date Eliceo Drummond MD [address] [facility] [place] 320051 PCP - General Family Medicine 09/07/16 Kunal Morales MD [address] [place] [address] Referring Thoracic Surgery 08/04/16 Alice Mendoza MD, [address] [place], [place] [address] Physician Radiation Oncology 09/12/19 [facility] 07/29/16 Handcrew Foreman Relationship Specialty Start Date End Date Eliceo Drummond MD [address] [place], [place] [address] PCP - General Family Medicine 09/07/16 Kunal Morales MD [address] [place] [address] Referring Thoracic Surgery 08/04/16 Alice Mendoza MD, [address] [place], [place] [phone] Physician Radiation Oncology 09/12/19 [facility] 07/29/16 Handcrew Foreman Relationship Specialty Start Date End Date Eliceo Drummond MD [address] [place], [place] [address]291 PCP - General Family Medicine 09/07/16 Kunal Morales MD [address] [facility] [place], [place] [address] Referring Thoracic Surgery 08/04/16 Alice Mendoza MD, [address] [place] [address] Physician Radiation Oncology 09/12/19 [facility] 07/29/16 Handcrew Foreman Relationship Specialty Start Date End Date Eliceo Drummond MD [address] [place] [address] PCP - General Family Medicine 09/07/16 Kunal Morales MD [address] [facility] [place] [address] Referring Thoracic Surgery 08/04/16 Alice Mendoza MD, [address] [place] [address] Physician Radiation Oncology 09/12/19 [facility] 07/29/16 Handcrew Foreman Relationship Specialty Start Date End Date Eliceo Drummond MD [address] [place] [address] PCP - General Family Medicine 09/07/16 Kunal Morales MD [address] [facility] [place], [place] [address] Referring Thoracic Surgery 08/04/16 Alice Mendoza MD, MD [address] [place] [address] Physician Radiation Oncology 09/12/19 [facility] 07/29/16 Handcrew Foreman Relationship Specialty Start Date End Date Eliceo Drummond MD [address] [place], [place] [address] PCP - General Family Medicine 09/07/16 Kunal Morales MD [address] [place], [place] [address] Referring Thoracic Surgery 08/04/16 Alice Mendoza MD, [address] [place] [address] Physician Radiation Oncology 09/12/19 [facility] 07/29/16 Handcrew Foreman Relationship Specialty Start Date End Date Eliceo Drummond MD [address] [place], [place] [address] PCP - General Family Medicine 09/07/16 Kunal Morales MD [address] [place] [address] Referring Thoracic Surgery 08/04/16 Alice Mendoza MD, [address] [place] [address] Physician Radiation Oncology 09/12/19 [facility] 07/29/16 Handcrew Foreman Relationship Specialty Start Date End Date Eliceo Drummond MD [address] [place], [place] [address]28[address] PCP - General Family Medicine 09/07/16 Kunal Morales MD [address] [place] [address] Referring Thoracic Surgery 08/04/16 Alice Mendoza MD, [address] [place] [address] Physician Radiation Oncology 09/12/19 [facility] 07/29/16 FOR RECORDS PERTAINING TO PATIENTS WHO ARE OR HAVE BEEN ENROLLED IN A CHEMICAL DEPENDENCY/SUBSTANCEABUSE PROGRAM, SOME INFORMATION MAY BE OMITTED. This clinical summary was aggregated from multiple sources. Caution should be exercised in using it in the provision of clinical care. This summary normalizes information from multiple sources, and as a consequence, information in this document may materially change the coding, format and clinical context of patient data. In addition, data may be omitted in some cases. CLINICAL DECISIONS SHOULD BE BASED ON THE PRIMARY CLINICAL RECORDS. [facility]. provides no warranty or guarantee of the accuracy or completeness of information in this document.
== END ==
LOC: OLS.WHLTSB 19:18
PROVIDERS: PCP Family Medicine
DX: N39.0 Urinary tract infection, site not specified (principal)
CPT/HCPCS: 87077; 87086; 87088; 87186

== ENCOUNTER 2023-08-19 02:17 | Emergency (ER) | payer MEDICARE, OTHER, SELFPAY ==
[2023-08-19] VITALS (12 sets, daily range): BP systolic 132–171; BP diastolic 55–110; PULSE 47–85; RESP 12–20; TEMP 36–36.9; O2SAT 91–98; BMI 29.2
--- NOTE | 2023-08-19 02:32 | CT_ITS ---
We are attempting to reach an attending provider to discuss findings. An addendum with communication details will be sent when the communication is complete. EXAM: CT HEAD WITHOUT INTRAVENOUS CONTRAST CLINICAL INDICATION: trauma/fall trauma/fall TECHNIQUE: Multiple axial images were obtained of the head without intravenous contrast. This CT exam was performed using one or more of the following dose reduction techniques: automated exposure control, adjustment of the mA and/or kV according to patient size, and/or use of iterative reconstruction technique. RADIATION DOSE: CTDIvol = 29.71 mGy, DLP = 560.09 mGy-cm COMPARISON: CT scan brain 03/29/2023 and 09/23/2022. FINDINGS: BRAIN AND EXTRA-AXIAL SPACES: There ism widening of the subdural spaces overlying the convexities bilaterally, measuring up to about 9 mm bilaterally. This finding was not present on the previous studies. There are are areas of high attenuation within the subdural spaces, and these are likely to represent acute hemorrhages. There is no clinically significant mass effect or midline shift. There are microvascular changes in supratentorial white matter. There is cerebral and cerebellar atrophy. There is cerebellar tonsillar ectopia which was also demonstrated on previous studies. There is no effacement of CSF space around the brainstem and a clinically significant Chiari 1 malformation is thought to be unlikely. No evidence of acute infarct. There is preservation of the spicer/white matter interface. No hydrocephalus. Basal cisterns are patent. BONES/JOINTS: Unremarkable. No discrete lytic or blastic abnormalities. VASCULATURE: There is atherosclerotic calcification of the vertebral and cavernous carotid arteries. SINUSES: Unremarkable as visualized. Clear. MASTOID AIR CELLS: Unremarkable. Clear. ORBITS: There is evidence for previous cataract surgery. CT/Brain/Head without Contrast IMPRESSION: 1. Acute bilateral subdural hematomas overlying the convexities, ranging up to about 9 mm thick. No clinically significant mass effect on the brain, at this time. 2. Chronic involutional changes of the brain. Electronically Signed: Prashant Baez MD at 4:27 EDT ,
--- NOTE | 2023-08-19 02:33 | EDS_ITS ---
HPI HPI - Fall History of Present Illness Chief Complaint: Fall Informant: patient Occured/Mechanism Occurred: Today Narrative Narrative: Patient with Parkinson's disease states he was walking to the bathroom and lost his balance and fell backward hitting his head on the floor. No loss of consciousness. Denies having a headache or vomiting. Lacerations to the back of the head. He denies any other pain or injury anywhere. Denies recent illness. Reviewed his medication list, it shows aspirin no other antiplatelet or anticoagulant medications. PFSH PFS Medical History Mild left atrial enlargement Concentric left ventricular hypertrophy Former smoker, stopped smoking many years ago Urinary urgency COPD (chronic obstructive pulmonary disease) Normochromic normocytic anemia Depression Dysphagia Parkinson's disease PIEDAD on CPAP History of left heart catheterization (LHC) (~05/25/19) NSTEMI (non-ST elevated myocardial infarction) History of left heart catheterization (LHC) (~01/03/19) Ventricular ectopy Pure hypercholesterolemia Essential hypertension Atherosclerotic heart disease of [place] coronary artery without angina pectoris Murmur, cardiac Peripheral arterial disease Unstable angina Penile ca HLD (hyperlipidemia) DM (diabetes mellitus), type 2 Bladder cancer Prostate ca Home Medications ?Medication ?Instructions ?Recorded ?Last Taken ?Type metformin 1,000 mg tablet 1,000 mg PO BIDCM DIABETES 05/24/19 05/24/19 History omeprazole 20 mg capsule,delayed 20 mg PO DAILY GERD 05/24/19 05/24/19 History release pravastatin 40 mg tablet 40 mg PO QHS CHOLESTEROL 05/24/19 05/22/19 History carbidopa 25 mg-levodopa 100 mg 2 tab PO TIDCM PARKINSONS 01/22/22 Unknown History tablet carbidopa ER 50 mg-levodopa 200 mg 1 tab PO QHS PARKINSONS 01/22/22 Unknown History tablet,extended release gabapentin 300 mg capsule 600 mg PO QHS NERVE PAIN 09/23/22 Unknown History amlodipine 2.5 mg tablet 2.5 mg PO DAILY BLOOD PRESSURE 10/06/22 Unknown Rx #30 tabs ipratropium bromide 42 mcg (0.06 2 spray NASAL BID RUNNY NOSE #1 10/06/22 Unknown Rx %) nasal spray BOTTLE losartan 50 mg tablet 50 mg PO DAILY BLOOD PRESSURE #30 10/06/22 Unknown Rx tabs sertraline 50 mg tablet 50 mg PO DAILY DEPRESSION #30 tabs 10/06/22 Unknown Rx ascorbic acid (vitamin C) 500 mg 500 mg PO 1200 SUPPLEMENT 11/26/22 Unknown History tablet ferrous sulfate 325 mg (65 mg 325 mg PO 1200 SUPPLEMENT 11/26/22 Unknown History iron) tablet loratadine 10 mg tablet 10 mg PO DAILY PRN ALLERGIES 11/26/22 Unknown History acetaminophen 325 mg tablet 650 mg PO Q4H PRN PAIN 04/07/23 Unknown History amitriptyline 10 mg tablet 10 mg PO QHS DEPRESSION 04/07/23 Unknown History aspirin 81 mg chewable tablet 162 mg PO 1200 HEART HEALTH 04/07/23 Unknown History gabapentin 300 mg capsule 300 mg PO DINNER NERVE PAIN 04/07/23 Unknown History oxycodone 5 mg capsule 5 mg PO Q6H PRN pain 3 days #12 04/07/23 Unknown Rx caps Allergy/AdvReac Type Severity Reaction Status Date / Time atorvastatin (From Lipitor) Allergy Rash Verified 08/19/23 02:18 codeine Allergy Rash Verified 08/19/23 02:18 Family History Father CAD (coronary artery disease) Brother CAD (coronary artery disease) Mother CAD (coronary artery disease) Surgical History History of atherectomy History of prostatectomy History of three vessel coronary artery bypass Hx of heart artery stent Presence of coronary angioplasty implant and graft S/P CABG x 3 (~07/21/16) S/P PTCA (percutaneous transluminal coronary angioplasty) Social History (Updated 08/19/23 @ 03:[address] Quang Thompson MD) housing: assisted living facility Smoking Status: Former smoker alcohol intake: current alcohol intake frequency: holidays/special occasions only substance use type: does not use caffeine: Yes Type: coffee Number of servings: 2 what type of physical activity do you participate in: none frequency: 1-2 times per week seatbelt use: always do you feel safe at home: Yes ROS ROS ED Constitutional Constitutional ED: Denies chills or fever(s) Eyes Eyes: Denies change in vision or diplopia ENT ENT ED: Reports other Details: Scalp pain ; Denies ear pain, epistaxis, facial pain or rhinorrhea Cardiovascular Cardiovascular: Denies chest pain or palpitations Respiratory/Chest Respiratory/Chest: Denies cough or dyspnea Gastrointestinal Gastrointestinal: Denies abdominal pain, diarrhea, melena, nausea or vomiting Genitourinary Genitourinary ED: Denies dysuria or hematuria Musculoskeletal Musculoskeletal: Denies back pain, extremity pain or neck pain Integumentary Reports laceration; Denies abscess, Abrasions or rash Neurologic Neurologic: Denies confusion, headache(s), paresthesias or weakness EXAM Physical Exam Const Vital Signs: 08/19/23 02:18 08/19/23 02:55 08/19/23 04:38 Temperature 96.8 F L Temperature Source Temporal Pulse Rate 49 L Respiratory Rate 16 Respiratory Effort Normal Respiratory Depth Normal Respiratory Pattern Normal Blood Pressure 157/69 H Blood Pressure Mean 98 Pulse Ox 91 95 Oxygen Delivery Method Room Air Room Air Room Air 08/19/23 04:53 Temperature Temperature Source Pulse Rate 51 L Respiratory Rate 16 Respiratory Effort Respiratory Depth Respiratory Pattern Blood Pressure 157/83 H Blood Pressure Mean 107 Pulse Ox 95 Oxygen Delivery Method Room Air Positive well nourished and well developed General Appearance ED: well developed and NAD HEENT Reports nasal mucous membranes and turbinates normal HEENT Narrative: Tenderness with 2 different lacerations on the back of the head associated with small hematomas no crepitance or depression felt. Mildly tender throughout the laceration areas. 1 is longitudinal and basically midline from the occiput down but not as low as the neck, it is 9 cm full-thickness down to the [place]. Linear, clean. The other is left high parietal, 2.5 cm full-thickness linear more shallow than the other laceration. Face and Sinus: Negative for facial tenderness Eyes PERRL and EOMs intact bilaterally Visual Acuity: other Other Details: no entrapment or pain with extraocular movements Neck full ROM and supple General: Negative for tenderness Chest Wall inspection of chest normal and palpation of chest normal Chest: symmetrical chest wall rise; Negative for crepitus or tenderness Resp normal respiratory effort and clear to auscultation bilaterally Percussion: other equal BS bilat Cardio no murmurs Rate: regular rate Rhythm: regular rhythm GI normal to inspection, nondistended, normoactive bowel sounds, soft to palpation and non-tender Back/Spine normal ROM Cervical Spine: Negative for cervical spine tenderness Thoracic Spine / Upper Back: Negative for thoracic spinal tenderness Lumbar Spine / Lower Back: Negative for lumbar spinal tenderness Extremity normal to inspection and full ROM General Extremety ED: Negative for tenderness Neuro oriented x3, CN's II-XII intact bilaterally, moves all extremities, no focal motor deficits and no sensory deficits noted Jailene Coma Scale: document GCS findings Spontaneous Obeys Commands Oriented 15 Sensorium / Orientation: awake and alert Psych mental status grossly normal and thought process normal Skin Skin Narrative: Laceration to the scalp as above, 9 cm laceration, 2.5 cm laceration. No other wounds seen except for scalp. Lesions: no lesions Rashes: no rashes MDM MDM MDM Narrative Medical decision making narrative: CT of the head was obtained in order to rule out intracranial injury, I reviewed the images and report which I agree with, positive for small bilateral frontal subdural hematomas. Prior to obtaining CT, anesthetized and repaired/cleanse lacerations on scalp see the procedure note. Patient doing well clinically. Instituted hemorrhage protocol for blood pressure control, and I will have staff reach out to family to see where they would like him to be transferred to with regards to a trauma center. Clinically patient is keenly alert and unchanged, he is doing well. According to paperwork sent with him from assisted living, he is DNR comfort care. I discussed this with his son, KARY; he asked me to have a conversation with the patient as he is mentally sharp but has problems getting words out due to his Parkinson's. The patient states that if the small subdural collections were to get worse and be life-threatening, he would want neurosurgery to keep him from dying. I discussed this with the son. Both the patient and his son understand that this means changing his DNR status. At this point, we are going to send him back to assisted living. Our nurses and the patient's son discussed with staff there, they are comfortable watching him for signs of decreased level of consciousness and/or vomiting, which point then they can decide if they want to go to a higher level of care, which I offered to do now but there comfortable keeping the DNR comfort care in place and having him go back there. I explained this to the patient and he agreed that would be acceptable as well. Lab Data Attestation: I reviewed the patient's lab results. Labs: Laboratory Results - last 24 hr 08/19/23 04:49 WBC 9.3 RBC 3.63 L Hgb 10.2 L Hct 32.4 L MCV 89.3 MCH 28.1 MCHC 31.5 L RDW Std Deviation 41.9 RDW Coeff of Yamil 12.8 Plt Count 206 MPV 9.5 Immature Gran % (Auto) 0.500 Neut % (Auto) 78.1 H Lymph % (Auto) 11.4 L [place] % (Auto) 7.9 Eos % (Auto) 1.8 Baso % (Auto) 0.3 Absolute Neuts (auto) 7.3 Absolute Lymphs (auto) 1.06 Nucleated RBC % 0 Radiography Diagnostic Testing: Clinical Impression(s) from Imaging Studies Brain CT 08/19/23 02:32 IMPRESSION: 1. Acute bilateral subdural hematomas overlying the convexities, ranging up to about 9 mm thick. No clinically significant mass effect on the brain, at this time. 2. Chronic involutional changes of the brain. Electronically Signed: Prashant Baez MD at 4:27 EDT Reading Location ID and State: [facility] / [place] , Service support , ADDENDUM: 08/19/23 0448 IMPRESSION: 1. Acute bilateral subdural hematomas overlying the convexities, ranging up to about 9 mm thick. No clinically significant mass effect on the brain, at this time. 2. Chronic involutional changes of the brain. N.B. : Quang Thompson MD, confirmed on 08/19/2023 04:41:15 (ET) that the referring physician received the results and does not require a verbal communication. Electronically Signed: Prashant Baez MD at 4:27 EDT , Procedures Lacerations Occipital scalp: Length: 9 cm Depth: Sub Q Shape: Linear Prep: Sterile Conditions and Chlorhexadine Laceration repair: Irrigated, Lidocaine with epi (3cc, 1%), Local and Skin sutures (Santy) Irrigated (ml): 80 Number of Sutures/[place]: 8 (Skin santy only) Left parietal scalp: Length: 2.5 cm Depth: Sub Q Shape: Linear Prep: Sterile Conditions and Chlorhexadine Laceration repair: Irrigated, Lidocaine with epi (1.5cc, 1%), Local and Skin sutures (Santy) Irrigated (ml): 40 Number of Sutures/Santy: 3 ([place]) Discharge Plan Triage Chief Complaint: Fall ED Provider: Quang Thompson Dx/Rx/DC Orders Clinical Impression: Acute subdural hematoma, Laceration of occipital region of scalp, Closed head injury without loss of consciousness, Fall, accidental, Parkinson's disease Instructions: ED Head Injury (Adult), ED Laceration Scalp Stitches or Santy Prescriptions: No Action carbidopa-levodopa 25-100 mg tablet 2 tab PO TIDCM carbidopa-levodopa 50-200 mg tablet extended release 1 tab PO QHS ascorbic acid (vitamin C) 500 mg tablet 500 mg PO 1200 loratadine 10 mg tablet 10 mg PO DAILY PRN (Reason: ALLERGIES ) ferrous sulfate 325 mg (65 mg iron) tablet 325 mg PO 1200 pravastatin 40 MG tablet 40 mg PO QHS metformin 1,000 MG tablet 1,000 mg PO BIDCM omeprazole 20 MG capsule 20 mg PO DAILY gabapentin 300 mg capsule 600 mg PO QHS Rx Instructions: TAKE ONE CAPSULE (300MG) BY MOUTH AT DINNER AND TWO CAPSULES (600MG) AT BEDTIME losartan 50 mg Tablet 50 mg PO DAILY Qty: 30 0RF sertraline 50 mg Tablet 50 mg PO DAILY Qty: 30 0RF ipratropium bromide 42 mcg (0.06 %) [place],Non-Aerosol 2 spray NASAL BID Qty: 1 0RF amlodipine 2.5 MG tablet 2.5 mg PO DAILY Qty: 30 0RF gabapentin 300 mg capsule 300 mg PO DINNER Rx Instructions: TAKE ONE CAPSULE (300MG) BY MOUTH AT DINNER AND TWO CAPSULES (600MG) AT BEDTIME oxycodone 5 mg capsule 5 mg PO Q6H PRN (Reason: pain) 3 Days Qty: 12 0RF acetaminophen 325 mg Tablet 650 mg PO Q4H PRN (Reason: PAIN ) amitriptyline 10 mg Tablet 10 mg PO QHS aspirin 81 MG tablet,chewable 162 mg PO 1200 Primary Care Provider: Eliceo Drummond Referrals: Eliceo Drummond MD [Primary Care Provider] - 1 Day for another exam ([place] should be removed in approximately 7 days) Print Language: Chinese Disposition Disposition: Assisted Living
[2023-08-19] MEDS: Lidocaine 1% /Epi 1:100 (20ml) 20 ML Vial 8 ML INFILT (03:20)
[2023-08-19 04:56] LABS: Absolute Lymphocyte Count 1.06 X10^3/uL (0.83-4.51); Absolute Neutrophil Count 7.3 X10^3/uL (2.0-7.7); Basophil# 0.03 X10^3/uL; Basophil% 0.3 % (0-1); Eosinophil# 0.17 X10^3/uL; Eosinophils% 1.8 % (0-5); Hematocrit 32.4 % (40-54); Hemoglobin 10.2 g/dL (13.0-16.5); Lymphocyte # 1.06 X10^3/ul (0.83-4.51); Lymphocyte % 11.4 % (19-41); Mean Corp Hgb Conc 31.5 g/dL (32-36); Mean Corpuscular Hgb 28.1 pg (27.0-32.0); Mean Corpuscular Volume 89.3 fL (80-94); Mean Platelet Vol. 9.5 fl (6.2-12.0); Monocyte# 0.74 X10^3/uL; Monocyte% 7.9 % (0-10); NRBC Flagged by Analyzer 0 % (0-5); Neutrophil # 7.26 X10^3/uL (2.7-7.7); Neutrophil % 78.1 % (47-70); Platelet Count 206 K/mm3 (150-450); RBC Distribution Width CV 12.8 % (11.6-14.6); RBC Distribution Width SD 41.9 fl (35.1-43.9); Red Blood Count 3.63 M/mm3 (4.6-6.2); White Blood Count 9.3 K/mm3 (4.4-11.0)
--- NOTE | 2023-08-19 05:28 | ED.RN ---
pt has baseline aphasia
[2023-08-19 05:29] LABS: Anion Gap 5 (5-15); BUN 25 mg/dL (7-18); BUN/Creat Ratio 30.2 RATIO (10-20); Calcium,Total 9.2 mg/dL (8.5-10.1); Chloride 105 mmol/L (98-107); Creatinine, Serum 0.83 mg/dL (0.70-1.30); EST Glomerular Filtration Rate 94 mL/min (>60); Est Glom Filt Rate - Afr Amer 114 mL/min (>60); Estimated Creatinine Clearance 77.11 ml/min; Glucose 136 mg/dL (74-106); Potassium 4.7 mmol/L (3.5-5.1); Sodium Level 138 mmol/L (136-145)
--- NOTE | 2023-08-19 06:03 | ED.RN ---
per dr alcazar no need to do nih q 15 min, pt dc'd, thu will be here at [id number]
== END 2023-08-19 09:10 | disposition home or self-care (01) ==
PROVIDERS: Emergency Provider Emergency Medicine; PCP Family Medicine; Visit Provider Emergency Medicine
DX: S01.81XA Laceration without foreign body of other part of head, initial encounter (principal); G20.C Parkinsonism, unspecified; J44.9 Chronic obstructive pulmonary disease, unspecified; I62.01 Nontraumatic acute subdural hemorrhage; E11.9 Type 2 diabetes mellitus without complications; Z87.891 Personal history of nicotine dependence; W01.198A Fall on same level from slipping, tripping and stumbling with subsequent striking against other object, initial encounter; Y93.01 Activity, walking, marching and hiking; G47.33 Obstructive sleep apnea (adult) (pediatric); Z99.89 Dependence on other enabling machines and devices; I25.2 Old myocardial infarction; I10 Essential (primary) hypertension; E78.00 Pure hypercholesterolemia, unspecified; I25.10 Atherosclerotic heart disease of native coronary artery without angina pectoris; Z85.51 Personal history of malignant neoplasm of bladder; Z85.46 Personal history of malignant neoplasm of prostate; Z79.84 Long term (current) use of oral hypoglycemic drugs; Z79.899 Other long term (current) drug therapy; F32.A Depression, unspecified; Z79.82 Long term (current) use of aspirin; Z90.79 Acquired absence of other genital organ(s); Z95.5 Presence of coronary angioplasty implant and graft
CPT/HCPCS: 12004; 70450; 80048; 85025; 96374; 96375; 99284; A4216